=== PATIENT | female | born 1945 | race Caucasian/White ===

== ENCOUNTER → 2020-03-05 10:11 | Outpatient (BNVA) | payer MEDICARE, OTHER, SELFPAY | PROVIDERS: PCP Internal Medicine; Visit Provider Internal Medicine | DX: J98.01 Acute bronchospasm (principal); K21.9 Gastro-esophageal reflux disease without esophagitis; Z79.899 Other long term (current) drug therapy | CPT/HCPCS: 99213 ==

== ENCOUNTER → 2020-04-09 15:08 | Outpatient (BNVA) | payer MEDICARE, OTHER, SELFPAY | PROVIDERS: PCP Internal Medicine; Visit Provider Internal Medicine | DX: J98.01 Acute bronchospasm (principal); J30.9 Allergic rhinitis, unspecified | CPT/HCPCS: 99212 ==

== ENCOUNTER → 2020-05-14 10:51 | Outpatient (BNVA) | payer MEDICARE, OTHER, SELFPAY | PROVIDERS: PCP Internal Medicine; Visit Provider Internal Medicine | DX: J30.9 Allergic rhinitis, unspecified (principal); J98.01 Acute bronchospasm | CPT/HCPCS: 99212 ==

== ENCOUNTER 2020-06-11 11:31 | Outpatient (REF) | payer MEDICARE, OTHER, SELFPAY ==
[2020-06-11 14:27] LABS: MANUAL DIFF FLAG NO
[2020-06-11 14:33] LABS: Basophils Percent Auto 0.5 % (0-2); Eosinophils Absolute Auto 0.1 X10*3/uL (0.0-0.4); Eosinophils Percent Auto 1.3 % (0-4); Hematocrit 36.3 % (37-47); Hemoglobin 12.4 g/dl (12.0-16.0); Imm Gran Abs Auto 0.02 X10*3/uL (0.00-0.03); Imm Gran Pct Auto 0.3 % (0.0-0.4); Lymphocytes Absolute Auto 3.1 X10*3/uL (1.2-4.9); Lymphocytes Percent Auto 49.9 % (20-40); Mean Corpuscular HGB Conc 34.2 g/dl (31.0-35.0); Mean Corpuscular Hemoglobin 27.6 pg (27.0-33.0); Mean Corpuscular Volume 80.7 fL (80-98); Mean Platelet Volume 11.1 fL (9.4-12.3); Monocytes Absolute Auto 0.5 X10*3/uL (0.1-1.2); Monocytes Percent Auto 8.1 % (2-11); Neutrophils Absolute Auto 2.5 X10*3/uL (2.0-8.3); Neutrophils Percent Auto 39.9 % (45-73); Platelet Count 268 X10*3/uL (160-400); Red Cell Distribution Width 14.6 % (11.0-16.0); White Blood Count 6.2 X10*3/uL (4.8-10.8)
[2020-06-11 14:44] LABS: Alanine Aminotransferase 37 U/L (0-31); Albumin Level 4.1 g/dL (3.5-5.0); Alkaline Phosphatase 87 U/L (39-117); Anion Gap 16 (12-20); Aspartate Amino Transferase 27 U/L (5-31); Bilirubin Total 0.6 mg/dL (0.0-1.0); Blood Urea Nitrogen 18 mg/dL (9-16); Calcium 9.3 mg/dL (8.4-10.2); Carbon Dioxide 23 mmol/L (22-29); Chloride 105 mmol/L (96-108); Estimated Glomerular Filt Rate > 60; Glucose Random 140 mg/dL (60-115); Sodium 140 mmol/L (135-145); Total Protein 7.3 g/dL (6.5-8.0)
[2020-06-11 14:57] LABS: Creatinine Urine 61.53 mg/dL; Microalbumin Urine < 5.0 mg/L
[2020-06-11 15:16] LABS: Estimated Average Glucose 140 mg/dL; Hemoglobin A1c % 6.5 %
== END 2020-06-11 11:32 | disposition home or self-care (01) ==
LOC: HO.10HDL 11:31
PROVIDERS: Visit Provider Internal Medicine
DX: R73.03 Prediabetes (principal); I10 Essential (primary) hypertension; J45.909 Unspecified asthma, uncomplicated
CPT/HCPCS: 36415; 80053; 82043; 83036; 85025

== ENCOUNTER 2020-07-13 10:10 | Outpatient (REF) | payer MEDICARE, OTHER, SELFPAY ==
--- NOTE | ~2020-07-13 | XR_ITS ---
EXAMINATION: XR CHEST CLINICAL INFORMATION: Acute bronchospasm. COMPARISON: None TECHNIQUE: Chest 08/28/2019 FINDINGS: The lungs are well-expanded and clear of acute process. The heart size and pulmonary vascularity is normal. There is moderate spondylosis dorsal spine. No lytic process seen. XR/XR chest 2V IMPRESSION: Unremarkable chest exam.
== END 2020-07-13 10:11 | disposition home or self-care (01) ==
LOC: HO.XRAY 10:10
PROVIDERS: PCP Internal Medicine; Visit Provider Internal Medicine
DX: J98.01 Acute bronchospasm (principal)
CPT/HCPCS: 71046; 99212

== ENCOUNTER 2020-07-22 11:23 | Outpatient (REF) | payer MEDICARE, OTHER, SELFPAY ==
[2020-07-22 13:57] LABS: MANUAL DIFF FLAG NO
[2020-07-22 14:15] LABS: Basophils Percent Auto 0.6 % (0-2); Eosinophils Absolute Auto 0.1 X10*3/uL (0.0-0.4); Eosinophils Percent Auto 1.5 % (0-4); Hematocrit 35.8 % (37-47); Hemoglobin 12.5 g/dl (12.0-16.0); Imm Gran Abs Auto 0.01 X10*3/uL (0.00-0.03); Imm Gran Pct Auto 0.1 % (0.0-0.4); Lymphocytes Absolute Auto 3.8 X10*3/uL (1.2-4.9); Lymphocytes Percent Auto 56.1 % (20-40); Mean Corpuscular HGB Conc 34.9 g/dl (31.0-35.0); Mean Corpuscular Hemoglobin 27.8 pg (27.0-33.0); Mean Corpuscular Volume 79.6 fL (80-98); Monocytes Absolute Auto 0.5 X10*3/uL (0.1-1.2); Monocytes Percent Auto 7.3 % (2-11); Neutrophils Absolute Auto 2.3 X10*3/uL (2.0-8.3); Neutrophils Percent Auto 34.4 % (45-73); Platelet Count 281 X10*3/uL (160-400); Red Cell Distribution Width 14.6 % (11.0-16.0); White Blood Count 6.7 X10*3/uL (4.8-10.8)
[2020-07-22 14:34] LABS: Alanine Aminotransferase 38 U/L (0-31); Alkaline Phosphatase 80 U/L (39-117); Anion Gap 12 (12-20); Aspartate Amino Transferase 30 U/L (5-31); Bilirubin Total 0.5 mg/dL (0.0-1.0); Blood Urea Nitrogen 18 mg/dL (9-16); Calcium 9.1 mg/dL (8.4-10.2); Carbon Dioxide 25 mmol/L (22-29); Chloride 104 mmol/L (96-108); Estimated Glomerular Filt Rate > 60; Glucose Fasting 131 mg/dL (60-99); Potassium 4.2 mmol/L (3.3-5.1); Sodium 137 mmol/L (135-145); Total Protein 7.2 g/dL (6.5-8.0)
== END 2020-07-22 11:24 | disposition home or self-care (01) ==
LOC: HO.10HDL 11:23
PROVIDERS: Visit Provider Internal Medicine Medical Oncology
DX: D72.820 Lymphocytosis (symptomatic) (principal); E11.69 Type 2 diabetes mellitus with other specified complication; E78.5 Hyperlipidemia, unspecified
CPT/HCPCS: 36415; 80053; 85025

== ENCOUNTER → 2020-08-10 10:07 | Outpatient (BNVA) | payer MEDICARE, OTHER, SELFPAY | PROVIDERS: PCP Internal Medicine; Visit Provider Internal Medicine | DX: J98.01 Acute bronchospasm (principal); J30.9 Allergic rhinitis, unspecified; Z79.51 Long term (current) use of inhaled steroids; Z87.891 Personal history of nicotine dependence | CPT/HCPCS: 99212 ==

== ENCOUNTER 2020-08-13 11:14 | Outpatient (REF) | payer MEDICARE, OTHER, SELFPAY ==
[2020-08-13 13:56] LABS: MANUAL DIFF FLAG NO
[2020-08-13 14:03] LABS: Basophils Percent Auto 0.4 % (0-2); Eosinophils Percent Auto 0.5 % (0-4); Hematocrit 38.5 % (37-47); Hemoglobin 13.4 g/dl (12.0-16.0); Imm Gran Abs Auto 0.03 X10*3/uL (0.00-0.03); Imm Gran Pct Auto 0.4 % (0.0-0.4); Lymphocytes Absolute Auto 2.6 X10*3/uL (1.2-4.9); Lymphocytes Percent Auto 34.9 % (20-40); Mean Corpuscular HGB Conc 34.8 g/dl (31.0-35.0); Mean Corpuscular Hemoglobin 27.5 pg (27.0-33.0); Mean Corpuscular Volume 79.1 fL (80-98); Mean Platelet Volume 11.2 fL (9.4-12.3); Monocytes Absolute Auto 0.3 X10*3/uL (0.1-1.2); Monocytes Percent Auto 3.8 % (2-11); Neutrophils Absolute Auto 4.5 X10*3/uL (2.0-8.3); Platelet Count 276 X10*3/uL (160-400); Red Blood Count 4.87 X10*6/uL (4.20-5.50); Red Cell Distribution Width 14.5 % (11.0-16.0); White Blood Count 7.6 X10*3/uL (4.8-10.8)
[2020-08-13 14:07] LABS: Estimated Average Glucose 146 mg/dL; Hemoglobin A1c % 6.7 %
[2020-08-13 14:23] LABS: Anion Gap 15 (12-20); Blood Urea Nitrogen 16 mg/dL (9-16); Calcium 9.6 mg/dL (8.4-10.2); Carbon Dioxide 24 mmol/L (22-29); Chloride 102 mmol/L (96-108); Estimated Glomerular Filt Rate > 60; Glucose Random 192 mg/dL (60-115); Potassium 4.1 mmol/L (3.3-5.1); Sodium 137 mmol/L (135-145)
== END 2020-08-13 11:15 | disposition home or self-care (01) ==
LOC: HO.10HDL 11:14
PROVIDERS: Visit Provider Internal Medicine
DX: E11.9 Type 2 diabetes mellitus without complications (principal); I10 Essential (primary) hypertension; R42 Dizziness and giddiness
CPT/HCPCS: 36415; 80048; 82550; 83036; 85025; 86140

== ENCOUNTER 2020-11-04 12:54 | Outpatient (REF) | payer MEDICARE, OTHER, SELFPAY ==
[2020-11-04 14:26] LABS: Influenza A PCR NEGATIVE (Negative); Influenza B PCR NEGATIVE (Negative); Resp Syncy Virus RNA Qual PCR NEGATIVE (Negative); SARS COV2 PCR INHOUSE NEGATIVE (Negative)
== END 2020-11-04 12:55 | disposition home or self-care (01) ==
LOC: HO.10HDLNP 12:54
PROVIDERS: Visit Provider Internal Medicine
DX: Z20.822 Contact with and (suspected) exposure to COVID-19 (principal)
CPT/HCPCS: 0241U

== ENCOUNTER 2020-11-27 11:57 | Outpatient (REF) | payer MEDICARE, OTHER, SELFPAY ==
--- NOTE | ~2020-11-27 | MM_ITS ---
EXAMINATION: MM SCREENING DIGITAL BREAST TOMOSYNTHESIS, BILATERAL CLINICAL INFORMATION: Screening. Asymptomatic. The lifetime risk of breast cancer based on the Tyrer-Cuzick Model is 2.4%. COMPARISON: Mammography: December 21, 2018 and studies dating back to June 13, 2014 TECHNIQUE: Digital breast tomosynthesis is performed in both the craniocaudal and mediolateral oblique views along with computer-aided detection (CAD). Synthesized 2D images are generated from the tomosynthesis. FINDINGS: There are scattered areas of fibroglandular density (ACR BI-RADS breast composition Category b). There are no significant masses, abnormal calcifications, or other abnormalities. MM/MM tomosynthesis screening BI IMPRESSION: There are no significant changes from prior study. ASSESSMENT: BI-RADS 1: Negative RECOMMENDATION: Routine annual mammography screening. This patient's information was entered into a reminder system with a target due date for their next mammogram.
== END 2020-11-27 11:58 | disposition home or self-care (01) ==
LOC: HO.MAMMO 11:57
PROVIDERS: PCP Internal Medicine; Visit Provider Internal Medicine
DX: Z12.31 Encounter for screening mammogram for malignant neoplasm of breast (principal)
CPT/HCPCS: 77063; 77067

== ENCOUNTER 2020-12-01 10:07 | Outpatient (REF) | payer MEDICARE, OTHER, SELFPAY ==
--- NOTE | ~2020-12-01 | XR_ITS ---
EXAMINATION: XR CHEST CLINICAL INFORMATION: Allergic rhinitis COMPARISON: 07/13/2020 TECHNIQUE: 2 views of the chest were obtained. FINDINGS: Lungs are clear. No focal consolidation or mass. Normal pulmonary vascularity. No pleural effusion or pneumothorax. Normal heart size. S-shaped thoracolumbar scoliosis. Right upper quadrant cholecystectomy clips. XR/XR chest 2V IMPRESSION: No acute pulmonary disease.
--- NOTE | ~2020-12-01 | XR_ITS ---
EXAMINATION: XR SINUSES CLINICAL INFORMATION: Allergic rhinitis COMPARISON: None TECHNIQUE: 3 views of the sinuses were obtained. FINDINGS: Paranasal sinuses appear clear without air-fluid levels. No fractures are identified. No radiodense foreign bodies. XR/XR sinus <3V IMPRESSION: No abnormal sinus opacification to suggest acute sinusitis.
== END 2020-12-01 10:08 | disposition home or self-care (01) ==
LOC: HO.XRAY 10:07
PROVIDERS: PCP Internal Medicine; Visit Provider Internal Medicine
DX: J30.9 Allergic rhinitis, unspecified (principal); J98.01 Acute bronchospasm
CPT/HCPCS: 70210; 71046; 99212

== ENCOUNTER 2021-01-01 13:26 | Outpatient (REF) | payer MEDICARE, OTHER, SELFPAY ==
[2021-01-01 14:15] LABS: Influenza A PCR NEGATIVE (Negative); Influenza B PCR NEGATIVE (Negative); Resp Syncy Virus RNA Qual PCR NEGATIVE (Negative); SARS COV2 PCR INHOUSE NEGATIVE (Negative)
== END 2021-01-01 13:27 | disposition home or self-care (01) ==
LOC: HO.LNP 13:26
PROVIDERS: Visit Provider Internal Medicine
DX: Z20.822 Contact with and (suspected) exposure to COVID-19 (principal)
CPT/HCPCS: 0241U

== ENCOUNTER 2021-01-22 10:39 | Outpatient (REF) | payer MEDICARE, OTHER, SELFPAY ==
[2021-01-22 12:03] LABS: MANUAL DIFF FLAG NO
[2021-01-22 12:14] LABS: Basophils Percent Auto 0.7 % (0-2); Eosinophils Absolute Auto 0.1 X10*3/uL (0.0-0.4); Eosinophils Percent Auto 1.7 % (0-4); Hematocrit 35.2 % (37-47); Hemoglobin 12.5 g/dl (12.0-16.0); Imm Gran Abs Auto 0.01 X10*3/uL (0.00-0.03); Imm Gran Pct Auto 0.2 % (0.0-0.4); Lymphocytes Percent Auto 50.8 % (20-40); Mean Corpuscular HGB Conc 35.5 g/dl (31.0-35.0); Mean Corpuscular Hemoglobin 28.3 pg (27.0-33.0); Mean Corpuscular Volume 79.8 fL (80-98); Mean Platelet Volume 11.1 fL (9.4-12.3); Monocytes Absolute Auto 0.4 X10*3/uL (0.1-1.2); Monocytes Percent Auto 7.3 % (2-11); Neutrophils Absolute Auto 2.3 X10*3/uL (2.0-8.3); Neutrophils Percent Auto 39.3 % (45-73); Platelet Count 258 X10*3/uL (160-400); Red Blood Count 4.41 X10*6/uL (4.20-5.50); Red Cell Distribution Width 14.6 % (11.0-16.0); White Blood Count 5.9 X10*3/uL (4.8-10.8)
[2021-01-22 12:17] LABS: Estimated Average Glucose 134 mg/dL; Hemoglobin A1C 151.3779 umol/L; Hemoglobin A1c % 6.3 %
[2021-01-22 12:39] LABS: Alanine Aminotransferase 31 U/L (0-31); Albumin Level 4.1 g/dL (3.5-5.0); Alkaline Phosphatase 78 U/L (39-117); Anion Gap 12 (12-20); Aspartate Amino Transferase 23 U/L (5-31); Bilirubin Total 0.3 mg/dL (0.0-1.0); Blood Urea Nitrogen 15 mg/dL (9-16); Calcium 9.4 mg/dL (8.4-10.2); Carbon Dioxide 24 mmol/L (22-29); Chloride 107 mmol/L (96-108); Cholesterol 178 mg/dL; Estimated Glomerular Filt Rate > 60; Glucose Fasting 136 mg/dL (60-99); HDL Cholesterol 52 mg/dL; LDL Cholesterol Calculated 74 mg/dl; Potassium 4.2 mmol/L (3.3-5.1); Sodium 139 mmol/L (135-145); Total Protein 7.2 g/dL (6.5-8.0); Triglycerides 264 mg/dL
[2021-01-22 14:34] LABS: Creatinine Urine 80.09 mg/dL; Microalbum/Creatinine Ratio Ur 6.2 ug/mg cr
== END 2021-01-22 10:40 | disposition home or self-care (01) ==
LOC: HO.LAB 10:39
PROVIDERS: Absent Provider Internal Medicine; PCP Internal Medicine; Visit Provider Internal Medicine Medical Oncology
DX: D72.820 Lymphocytosis (symptomatic) (principal); E11.9 Type 2 diabetes mellitus without complications; I10 Essential (primary) hypertension; J45.909 Unspecified asthma, uncomplicated; E78.00 Pure hypercholesterolemia, unspecified
CPT/HCPCS: 36415; 80053; 80061; 82043; 83036; 85025

== ENCOUNTER → 2021-02-10 09:28 | Outpatient (BNVA) | payer MEDICARE, OTHER, SELFPAY | PROVIDERS: PCP Internal Medicine; Visit Provider Internal Medicine | DX: J98.01 Acute bronchospasm (principal); J30.9 Allergic rhinitis, unspecified | CPT/HCPCS: 99212 ==

== ENCOUNTER → 2021-05-10 09:47 | Outpatient (BNVA) | payer MEDICARE, OTHER, SELFPAY | PROVIDERS: PCP Internal Medicine; Visit Provider Internal Medicine | DX: R05.3 Chronic cough (principal); J30.9 Allergic rhinitis, unspecified | CPT/HCPCS: 99212 ==

== ENCOUNTER 2021-05-19 11:00 | Outpatient (RCR) | payer OTHER, MEDICARE, SELFPAY | END 2021-06-10 13:31 | disposition home or self-care (01) | LOC: HO.PTCHIC 11:00 | PROVIDERS: PCP Internal Medicine; Visit Provider Internal Medicine | DX: M54.50 Low back pain, unspecified (principal); M54.2 Cervicalgia | CPT/HCPCS: 97014; 97110; 97140; 97162 ==

== ENCOUNTER 2021-05-24 12:01 | Outpatient (REF) | payer MEDICARE, OTHER, SELFPAY ==
--- NOTE | ~2021-05-24 | XR_ITS ---
EXAMINATION: XR NASAL BONES CLINICAL INFORMATION: Status post fall with nasal swelling. COMPARISON: 12/01/2020 and 11/12/2018 TECHNIQUE: 3 views of the nasal bones were obtained. XR/XR nasal bones min 3V FINDINGS/IMPRESSION: Minimally angulated nasal bone fracture. Slight leftward deviation of the osseous nasal septum is stable and bony orbits intact. Paranasal sinuses are clear.
== END 2021-05-24 12:02 | disposition home or self-care (01) ==
LOC: HO.XRAY 12:01
PROVIDERS: PCP Internal Medicine; Visit Provider Internal Medicine
DX: R22.9 Localized swelling, mass and lump, unspecified (principal); Z91.81 History of falling
CPT/HCPCS: 70160

== ENCOUNTER 2021-07-29 07:59 | Outpatient (REF) | payer MEDICARE, OTHER, SELFPAY ==
[2021-07-29 11:24] LABS: MANUAL DIFF FLAG NO
[2021-07-29 11:30] LABS: Basophils Percent Auto 0.7 % (0-2); Eosinophils Absolute Auto 0.1 X10*3/uL (0.0-0.4); Eosinophils Percent Auto 1.7 % (0-4); Hematocrit 35.8 % (37.0-47.0); Hemoglobin 12.3 g/dl (12.0-16.0); Imm Gran Abs Auto 0.01 X10*3/uL (0.00-0.03); Imm Gran Pct Auto 0.2 % (0.0-0.4); Lymphocytes Absolute Auto 3.2 X10*3/uL (1.2-4.9); Lymphocytes Percent Auto 59.1 % (20-40); Mean Corpuscular HGB Conc 34.4 g/dl (31.0-35.0); Mean Corpuscular Hemoglobin 27.3 pg (27.0-33.0); Mean Corpuscular Volume 79.6 fL (80.0-98.0); Monocytes Absolute Auto 0.4 X10*3/uL (0.1-1.2); Neutrophils Absolute Auto 1.7 x10*3/uL (2.0-8.3); Neutrophils Percent Auto 31.3 % (45-73); Platelet Count 255 X10*3/uL (160-400); Red Cell Distribution Width 14.9 % (11.0-16.0); White Blood Count 5.4 X10*3/uL (4.8-10.8)
[2021-07-29 11:49] LABS: Alanine Aminotransferase 24 U/L (0-31); Albumin Level 3.9 g/dL (3.5-5.0); Alkaline Phosphatase 86 U/L (39-117); Anion Gap 12 (12-20); Aspartate Amino Transferase 21 U/L (5-31); Bilirubin Total 0.5 mg/dL (0.0-1.0); Blood Urea Nitrogen 16 mg/dL (9-16); Calcium 9.1 mg/dL (8.4-10.2); Carbon Dioxide 27 mmol/L (22-29); Chloride 104 mmol/L (96-108); Estimated Glomerular Filt Rate > 60; Glucose Random 141 mg/dL (60-115); Potassium 4.1 mmol/L (3.3-5.1); Sodium 139 mmol/L (135-145)
[2021-07-29 12:01] LABS: Estimated Average Glucose 151 mg/dL; Hemoglobin A1c % 6.9 %
[2021-07-29 12:10] LABS: Erythrocyte Sedimentation Rate 25 MM/HR (0-20)
== END 2021-07-29 08:00 | disposition home or self-care (01) ==
LOC: HO.HMGCLDS 07:59
PROVIDERS: Absent Provider Internal Medicine Medical Oncology; PCP Internal Medicine; Referring Provider Internal Medicine; Visit Provider Internal Medicine
DX: E11.9 Type 2 diabetes mellitus without complications (principal); I10 Essential (primary) hypertension; J45.909 Unspecified asthma, uncomplicated
CPT/HCPCS: 36415; 80053; 83036; 85025; 85652

== ENCOUNTER 2021-08-08 14:02 | Emergency (ER) | payer MEDICARE, OTHER, SELFPAY ==
--- NOTE | ~2021-08-08 | CT_ITS ---
EXAMINATION: CT HEAD WITHOUT CONTRAST CT CERVICAL SPINE WITHOUT CONTRAST CLINICAL INFORMATION: Fall, hit head. COMPARISON: CT scan of the head 01/07/2017. TECHNIQUE: Multidetector CT imaging of the head and cervical spine was performed without the use of intravenous contrast. Coronal and sagittal reformatted images were generated at the technologist workstation. This CT examination was performed using dose optimization techniques as appropriate, variously including the following: *Automated exposure control *Adjustment of mA and/or kV according to patient size (this includes techniques or standardized protocols for targeted exams where dose is matched to indication/reason for exam; i.e. extremities or head) *Use of iterative reconstruction technique DLP: 1065 mGy-cm. FINDINGS: CT head: There is no evidence of acute intracranial hemorrhage or territorial infarction. No abnormal mass-effect or midline shift is seen. [place] to white matter differentiation is well preserved. No extra-axial fluid collections are identified. There is commensurate prominence of the ventricles and sulci consistent with diffuse volume loss. There are areas of low-attenuation in the periventricular and subcortical white matter, consistent with chronic microvascular ischemic changes. 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 There are atheromatous calcifications of the intradural vertebral arteries bilaterally. There are no acute osseous findings. There is hyperostosis frontalis interna. There are no large scalp contusions or hematomas. The mastoid air cells and the visualized paranasal sinuses are well-aerated. The nasal septum has a sigmoid configuration; anteriorly, it extends toward the right, and more posteriorly it extends toward the left with a prominent left-sided bony nasal septal spur. There is thin bone over the carotid canals typically on the right. There are abel palatini. CT cervical spine: There are mild retrolistheses of C4 on C5 and C5 on C6. There is narrowing of intervertebral disc height at these levels, and there is also narrowing at this C6-C7. No fractures are demonstrated. The lateral masses of C1 and C2 are normally aligned and the dens appears intact. There are degenerative changes of the bilateral atlantoaxial joints. The atlantooccipital joints appear intact. Vertebral body heights appear normal. There is multilevel facet arthropathy. There are atheromatous calcifications of the great vessels of the neck and at the carotid bifurcations. The imaged lung apices are clear. CT/CT cervical spine wo con IMPRESSION: CT head: 1. There are no acute bleeds or territorial infarcts. No masses are demonstrated. 2. There are chronic microvascular ischemic changes and there is diffuse volume loss. 3. There are no acute osseous or soft tissue abnormalities. CT cervical spine: 1. There are no acute fractures or subluxations. 2. There is multilevel spondylosis and facet arthropathy. 3. There are no acute soft tissue abnormalities.
[2021-08-08 14:16] VITALS: BP 205/91; PULSE 104; RESP 16; TEMP 36.7; O2SAT 98; BMI 28.5
--- NOTE | 2021-08-08 14:57 | ED.HEATRA ---
HPI - Head Injury General Chief complaint: Head Injury Stated complaint: HIT IN HEAD Time Seen by Provider: 08/08/21 14:34 Source: patient Mode of arrival: ambulatory Limitations: no limitations History of Present Illness HPI Narrative: 76-year-old female here with reports of head injury 2 days ago. Patient tells me that she fell forward hitting her head on the refrigerator at her house. There was no loss of consciousness. She reports a headache since then. No neck pain, vision changes, vomiting, dizziness. Patient is not on any anticoagulation. She was seen at urgent care and referred into the emergency department for the CT scan. Related Data Home Medications Medication Instructions Recorded Confirmed blood sugar diagnostic #10 ea 02/29/20 04/09/20 carvedilol 6.25 mg tablet 6.25 mg PO BID 02/29/20 04/09/20 hydralazine 25 mg tablet 25 mg PO BID 02/29/20 04/09/20 pravastatin 80 mg tablet 80 mg PO DAILY 02/29/20 04/09/20 omeprazole 20 mg capsule,delayed 20 mg PO DAILY cap 07/13/20 release aspirin 81 mg tablet,delayed 81 mg PO DAILY 12/01/20 release multivitamin (Daily Multi-Vitamin) 1 tab PO DAILY 12/01/20 lorazepam 1 mg tablet 0.5 mg PO BID PRN tab 02/10/21 azelastine 137 mcg (0.1 %) nasal INTRANASAL 05/10/21 spray aerosol blood-glucose meter (FreeStyle #1 ea 05/10/21 [place] Lite) dextromethorphan polistirex 30 10 ml PO Q12H 05/10/21 mg/5 mL oral susp ext.release 12hr (Delsym 12 hour) lancets 28 gauge (FreeStyle #100 ea 05/10/21 Lancets) Previous Rx's Medication Instructions Recorded albuterol sulfate 90 mcg/actuation 2 puff INHALATION Q4-6H PRN #18 g 02/10/21 aerosol inhaler dextromethorphan HBr 15 mg tablet 15 mg PO Q8H PRN 30 Days #60 tab 05/10/21 (Delsym Cough) Allergies Allergy/AdvReac Type Severity Reaction Status Date / Time niacin [Niacin] Allergy Mild RASH Verified 08/08/21 14:22 lactose [Lactose] AdvReac Mild DIARRHEA Verified 08/08/21 14:22 atorvastatin [Lipitor] AdvReac Unknown Unknown Verified 08/08/21 14:22 celecoxib [Celebrex] AdvReac Unknown Unknown Verified 08/08/21 14:22 simvastatin AdvReac Unknown Unknown Verified 08/08/21 14:22 Review of Systems Review of Systems: Yes all other systems are reviewed and are negative Constitutional: Constitutional: Reports no additional constitutional complaints, Denies body ache(s), Denies chills, Denies fever(s), Reports headache(s) and Denies weakness Eyes: Eyes: Reports no additional eye complaints and Denies change in vision ENT: Reports system reviewed and no additional complaints, except as documented, Denies dizziness, Reports headache(s), Denies nasal congestion, Denies nasal discharge and Denies neck pain Cardiovascular: Cardiovascular: Reports no additional cardiovascular complaints, Denies chest pain, Denies leg edema and Denies dyspnea Respiratory: Respiratory: Reports no additional respiratory complaints, Denies cough and Denies dyspnea Gastrointestinal: Gastrointestinal: Reports no additional gastrointestinal complaints, Denies abdominal pain, Denies diarrhea, Denies nausea and Denies vomiting Genitourinary: Genitourinary: Reports no additional female genitourinary complaints and Denies urinary incontinence Musculoskeletal: Musculoskeletal: Reports no additional musculoskeletal complaints, Denies back pain, Denies arthralgias, Denies joint swelling, Denies neck pain, Denies numbness and Denies tingling Integumentary/Breasts: Skin/Breast: Reports system reviewed and no additional complaints, except as docu and Denies rash Neurologic: Reports system reviewed and no additional complaints, except as documented, Denies Abnormal speech present, Denies dizziness, Reports headache(s), Denies numbness, Denies tingling and Denies weakness [facility] Past Medical History Attestation statement: The following information was validated with the patient. Source: old records reviewed and nursing notes reviewed Medical History Allergic rhinitis Chronic cough Cough due to bronchospasm Cough due to bronchospasm Fibromyalgia High cholesterol HTN (hypertension) IBS (irritable bowel syndrome) Family History Family History Father No problems noted. Mother Diabetic coma Sister No problems noted. Social History Social History Patient Tobacco Use Status: Former Tobacco user Advance Directives: No Advance Directives Information Provided: No Physical Exam Vital Signs: Vital Signs: Last Vital Signs Temp 98.7 F 08/08/21 16:33 Pulse 81 08/08/21 16:33 Resp 18 08/08/21 16:33 BP 157/84 H 08/08/21 16:33 Pulse Ox 96 08/08/21 16:33 BMI result Body Mass Index 28.5 Const: General: cooperative, healthy appearing, comfortable and no acute distress Orientation/consciousness: patient oriented x3 Limitations: no limitations HENMT: Head: Yes normal to inspection, No Valdovinos's sign and No raccoon eyes Ears: hearing grossly normal bilaterally and TM's normal bilaterally General nose exam: Normal external nose present Face and sinus: Yes normal facial exam Mouth: Normal oral and palatal mucosa present Throat: Yes posterior oropharynx normal Eyes: General: appearance normal, both eyes and all related structures Pupils: Equal, round and reactive pupils present Neck: Other: No midline tenderness, step-offs deformities Neck: Yes normal visual inspection, Yes full ROM, Yes no lymphadenopathy and Yes no meningeal signs Chest: Chest palpation & inspection: normal inspection of the chest Resp: Effort & Inspection: normal respiratory effort Auscultation: clear to auscultation bilaterally Cardio: Rate: regular rate Rhythm: regular rhythm Peripheral pulses: Peripheral pulses 2+ throughout GI: Inspection: Yes normal to inspection Palpation (GI): Soft to palpation and nontender Auscultation: normal bowel sounds Back/Spine/Pelvis: Thoracic/Lumbar Spine: thoracic and lumbar spine normal to inspection Skin: General skin exam: no rashes or lesions noted Neuro: General: patient oriented x3, moves all extremities, no meningeal signs, no focal motor deficits and normal sensation to monofilament Cranial nerves: Yes CN's II-XII intact bilaterally, Yes Equal, round and reactive pupils present, Yes Bilaterally intact EOM present, Yes Nystagmus not present, Yes Normal facial strength present and Yes Midline tongue present Cognition (Neuro): normal cognition Speech: No Abnormal speech present Gait exam (Neuro): Normal gait present Motor exam (neuro): 5/5 motor strength present throughout Sensory Exam: Normal double simultaneous stimulation for sensation Coordination: [id number] test normal, [id number] test normal and tandem gait normal Extrem: General: Yes normal to inspection Course Course Course Narrative: 76-year-old female here with a headache after a head strike 2 days ago. No anticoagulation use. Normal neuro exam. Patient is hypertensive but tells me that whenever she is visiting the doctor or at a hospital setting her blood pressure runs. She did take her blood pressure medications this morning. Will check CT head and neck due to age and monitor blood pressure 1645-CT head and neck and negative. Blood pressure improved without intervention. Plan for discharge home. Reviewed worrisome signs and symptoms of when to return to the emergency department. Comfortable discharge home. MDM - Head Injury Medical Records Attestation: I reviewed the patient's medical records. Lab Data Attestation: I reviewed the patient's lab results. Imaging Data Ct head/cervical spine: Attestation: I personally reviewed and interpreted this imaging study as follows: Radiologist's impression: IMPRESSION: CT head: 1. There are no acute bleeds or territorial infarcts. No masses are demonstrated. 2. There are chronic microvascular ischemic changes and there is diffuse volume loss. 3. There are no acute osseous or soft tissue abnormalities. ? CT cervical spine: 1. There are no acute fractures or subluxations. 2. There is multilevel spondylosis and facet arthropathy. 3. There are no acute soft tissue abnormalities. Discharge Plan Discharge Clinical Impression: Closed head injury Patient Disposition: Home, Self-Care Instructions: Head Injury (ED) Additional Instructions: CT scan of the head and neck are normal Take Tylenol for pain as needed Follow-up with your primary care doctor in 7 days for re-evaluation Blood pressure was mildly elevated. Please also follow-up for repeat blood pressure outpatient Prescriptions: No Action (DME) FreeStyle Lite Strips Strip See Rx Instructions ea Not Applicable DAILY Qty: 10 0RF Rx Instructions: As directed pravastatin 80 mg tablet 80 mg PO DAILY 0RF hydralazine 25 mg tablet 25 mg PO BID 0RF carvedilol 6.25 mg tablet 6.25 mg PO BID 0RF omeprazole 20 mg capsule,delayed release(DR/EC) 20 mg PO DAILY 0RF albuterol sulfate 90 mcg/actuation HFA aerosol inhaler 2 puff inhalation Q4-6H PRN (Reason: for wheezing) Qty: 18 3RF lorazepam 1 mg tablet 0.5 mg PO BID PRN0RF aspirin 81 mg tablet,delayed release (DR/EC) 81 mg PO DAILY 0RF multivitamin [Daily Multi-Vitamin] Tablet 1 tab PO DAILY 0RF azelastine 137 mcg (0.1 %) aerosol,spray intranasal 0RF (DME) lancets [FreeStyle Lancets] 28 gauge misc See Rx Instructions ea topical BID Qty: 100 0RF Rx Instructions: As directed (DME) blood-glucose meter [FreeStyle [place] Lite] Kit See Rx Instructions ea Not Applicable BID Qty: 1 0RF Rx Instructions: As directed dextromethorphan polistirex [Delsym 12 hour] 30 mg/5 mL suspension,extended rel 12 hr 10 ml PO Q12H 0RF Delsym Cough 15 mg tablet 15 mg PO Q8H PRN (Reason: cough) 30 Days Qty: 60 5RF Referrals: Dannie Huang MD [Primary Care Provider] - 1 week Interventions: ED Discharge Assessment Last Done: 08/08/21 16:59 Discharge Date/Time: 08/08/21 17:02
[2021-08-08 16:33] VITALS: BP 157/84; PULSE 81; RESP 18; TEMP 37.1; O2SAT 96
== END 2021-08-08 17:02 | disposition home or self-care (01) ==
PROVIDERS: Emergency Provider Emergency Medicine; PCP Internal Medicine
DX: S00.91XA Abrasion of unspecified part of head, initial encounter (principal); G44.309 Post-traumatic headache, unspecified, not intractable; M54.2 Cervicalgia; W01.0XXA Fall on same level from slipping, tripping and stumbling without subsequent striking against object, initial encounter; Y93.9 Activity, unspecified; Y92.9 Unspecified place or not applicable; Y99.9 Unspecified external cause status
CPT/HCPCS: 70450; 72125; 99283

== ENCOUNTER 2021-11-09 09:46 | Outpatient (REF) | payer MEDICARE, OTHER, SELFPAY ==
[2021-11-09 11:45] LABS: Estimated Average Glucose 143 mg/dL; Hemoglobin A1c % 6.6 %
[2021-11-09 12:16] LABS: Anion Gap 12 (12-20); Blood Urea Nitrogen 17 mg/dL (9-16); Calcium 9.1 mg/dL (8.4-10.2); Carbon Dioxide 24 mmol/L (22-29); Chloride 107 mmol/L (96-108); Estimated Glomerular Filt Rate > 60; Glucose Random 128 mg/dL (60-115); Potassium 4.1 mmol/L (3.3-5.1); Sodium 139 mmol/L (135-145)
== END 2021-11-09 09:47 | disposition home or self-care (01) ==
LOC: HO.LAB 09:46
PROVIDERS: PCP Internal Medicine; Visit Provider Internal Medicine
DX: E11.9 Type 2 diabetes mellitus without complications (principal); J45.909 Unspecified asthma, uncomplicated; I10 Essential (primary) hypertension
CPT/HCPCS: 36415; 80048; 83036

== ENCOUNTER → 2021-11-11 09:43 | Outpatient (BNVA) | payer MEDICARE, OTHER, SELFPAY | PROVIDERS: PCP Internal Medicine; Visit Provider Internal Medicine | DX: J30.9 Allergic rhinitis, unspecified (principal); R05.3 Chronic cough; J98.01 Acute bronchospasm | CPT/HCPCS: 99212 ==

== ENCOUNTER 2021-12-21 09:24 | Outpatient (REF) | payer MEDICARE, OTHER, SELFPAY ==
--- NOTE | ~2021-12-21 | MM_ITS ---
EXAMINATION: MM SCREENING DIGITAL BREAST TOMOSYNTHESIS, BILATERAL CLINICAL INFORMATION: Screening. Asymptomatic. The lifetime risk of breast cancer based on the Tyrer-Cuzick Model is 2.1%. COMPARISON: Mammography: November 27, 2020 and studies dating back to February 10, 2012 TECHNIQUE: Digital breast tomosynthesis is performed in both the craniocaudal and mediolateral oblique views along with computer-aided detection (CAD). Synthesized 2D images are generated from the tomosynthesis. FINDINGS: There are scattered areas of fibroglandular density (ACR BI-RADS breast composition Category b). There are no significant masses, abnormal calcifications, or other abnormalities. MM/MM tomosynthesis screening BI IMPRESSION: There are no significant changes from prior study. ASSESSMENT: BI-RADS 1: Negative RECOMMENDATION: Routine annual mammography screening. This patient's information was entered into a reminder system with a target due date for their next mammogram.
== END 2021-12-21 09:25 | disposition home or self-care (01) ==
LOC: HO.MAMMO 09:24
PROVIDERS: PCP Internal Medicine; Visit Provider Internal Medicine
DX: Z12.31 Encounter for screening mammogram for malignant neoplasm of breast (principal)
CPT/HCPCS: 77063; 77067

== ENCOUNTER → 2022-01-26 10:33 | Outpatient (BNVA) | payer MEDICARE, OTHER, SELFPAY | PROVIDERS: PCP Internal Medicine; Visit Provider Internal Medicine | DX: R05.3 Chronic cough (principal); J30.9 Allergic rhinitis, unspecified; J98.01 Acute bronchospasm; F32.A Depression, unspecified | CPT/HCPCS: 36415; 80053; 80061; 82043; 83036; 85025; 99212 ==

== ENCOUNTER 2022-01-26 12:22 | Outpatient (REF) | payer MEDICARE, OTHER, SELFPAY ==
[2022-01-26 14:14] LABS: MANUAL DIFF FLAG NO
[2022-01-26 14:25] LABS: Basophils Percent Auto 0.6 % (0-2); Eosinophils Absolute Auto 0.1 X10*3/uL (0.0-0.4); Hematocrit 36.2 % (37.0-47.0); Hemoglobin 12.6 g/dl (12.0-16.0); Imm Gran Abs Auto 0.02 X10*3/uL (0.00-0.03); Imm Gran Pct Auto 0.3 % (0.0-0.4); Lymphocytes Absolute Auto 3.2 X10*3/uL (1.2-4.9); Lymphocytes Percent Auto 45.7 % (20-40); Mean Corpuscular HGB Conc 34.8 g/dl (31.0-35.0); Mean Corpuscular Hemoglobin 27.3 pg (27.0-33.0); Mean Corpuscular Volume 78.4 fL (80.0-98.0); Monocytes Absolute Auto 0.4 X10*3/uL (0.1-1.2); Monocytes Percent Auto 5.7 % (2-11); Neutrophils Absolute Auto 3.3 x10*3/uL (2.0-8.3); Neutrophils Percent Auto 46.7 % (45-73); Platelet Count 259 X10*3/uL (160-400); Red Blood Count 4.62 X10*6/uL (4.20-5.50); Red Cell Distribution Width 15.1 % (11.0-16.0)
[2022-01-26 14:39] LABS: Alanine Aminotransferase 29 U/L (0-31); Albumin Level 4.2 g/dL (3.5-5.0); Alkaline Phosphatase 82 U/L (39-117); Anion Gap 15 (12-20); Aspartate Amino Transferase 21 U/L (5-31); Bilirubin Total 0.5 mg/dL (0.0-1.0); Blood Urea Nitrogen 13 mg/dL (9-16); Calcium 9.4 mg/dL (8.4-10.2); Carbon Dioxide 24 mmol/L (22-29); Chloride 105 mmol/L (96-108); Cholesterol 197 mg/dL; Estimated Glomerular Filt Rate > 60; Glucose Fasting 129 mg/dL (60-99); HDL Cholesterol 57 mg/dL; LDL Cholesterol Calculated 107 mg/dl; Potassium 4.2 mmol/L (3.3-5.1); Sodium 140 mmol/L (135-145); Total Protein 7.6 g/dL (6.5-8.0); Triglycerides 165 mg/dL
[2022-01-26 14:43] LABS: Creatinine Urine 24.06 mg/dL; Microalbumin Urine < 5.0 mg/L
[2022-01-27 07:29] LABS: Estimated Average Glucose 131 mg/dL; Hemoglobin A1c % 6.2 %
== END 2022-01-26 12:23 | disposition home or self-care (01) ==
LOC: HO.10HDL 12:22
PROVIDERS: Absent Provider Internal Medicine Medical Oncology; Visit Provider Internal Medicine
DX: Z13.89 Encounter for screening for other disorder (principal)
CPT/HCPCS: 36415; 80053; 80061; 82043; 83036; 85025

== ENCOUNTER 2022-01-28 15:21 | Outpatient (REF) | payer MEDICARE, OTHER, SELFPAY ==
--- NOTE | ~2022-01-28 | US_ITS ---
EXAMINATION: US SOFT TISSUE NECK CLINICAL INFORMATION: Localized swelling, mass or lump supraclavicular region COMPARISON: Cervical spine CT August 2021 TECHNIQUE: Ultrasound of the neck soft tissues in the lower neck above the sternal notch FINDINGS: No soft tissue mass, adenopathy or fluid collection is seen. There is asymmetric prominence of the right sternomanubrial joint compared to the left. There is hypoechoic material adjacent to the joint space and possible pannus formation or joint effusion cannot be excluded. US/US soft tiss head and/or neck IMPRESSION: Normal-appearing soft tissues of the right lower anterior neck. Asymmetric prominence of the right sternomanubrial joint compared to the left. Possible joint effusion or pannus formation cannot be excluded.. Follow-up x-ray or CT should be considered if clinically indicated.
== END 2022-01-28 15:22 | disposition home or self-care (01) ==
LOC: HO.HMGCX 15:21
PROVIDERS: PCP Internal Medicine
DX: R22.1 Localized swelling, mass and lump, neck (principal)
CPT/HCPCS: 76536

== ENCOUNTER 2022-02-15 09:28 | Outpatient (REF) | payer MEDICARE, OTHER, SELFPAY ==
--- NOTE | ~2022-02-15 | CT_ITS ---
EXAMINATION: CT CHEST WITHOUT CONTRAST CLINICAL INFORMATION: Chronic cough. COMPARISON: Chest radiograph 12/01/2020. TECHNIQUE: Multidetector volumetric CT imaging of the chest was done. Axial MIP volume rendering provided. Sagittal and coronal reformatted images were obtained. This CT examination was performed using dose optimization techniques as appropriate, variously including the following: *Automated exposure control. *Adjustment of mA and/or kV according to patient size (this includes techniques or standardized protocols for targeted exams where dose is matched to indication/reason for exam; i.e. extremities or head). *Use of iterative reconstruction technique. DLP: 140 mGy-cm FINDINGS: LUNGS: A number of small pulmonary nodules are present throughout the lungs and cintron images of all have been saved. Most are on the order of 3 mm in size. The largest nodules are polygonal in shape and perifissural most likely representing lymph nodes. For example, there is a 6 mm perifissural nodule in the superior segment of the left lower lobe (7:277) with a similar 4 mm nodule in the right upper lobe (7:288). Other non-fissural nodules would include left lower lobe nodule (7:288). In the superior segment left lower lobe adjacent to the aorta, there is a 1.8 x 1.3 x 2.1 cm ground-glass nodule (7:215). No consolidations are seen. There is no bronchiectasis. There are some areas where there is some mild bronchial thickening present. No emphysematous changes. MEDIASTINUM: No mediastinal or hilar lymphadenopathy. The ascending aorta is mildly prominent but not aneurysmal at 3.7 cm. PLEURA: There is no pleural effusion. No pleural mass or thickening. AXILLA: No lymphadenopathy. UPPER ABDOMEN: Liver attenuation is decreased suggesting hepatic steatosis. A small hiatal hernia is present. OSSEOUS STRUCTURES: Degenerative changes are seen in the spine. No bony destructive lesions. CT/CT chest wo IV con IMPRESSION: 1. Multiple pulmonary nodules, the largest measuring 6 mm with a ground-glass nodule measuring up to 2.1 cm. 2017 Fleischner Society Recommendations for Lung Nodule(s): Follow-Up based on size (average of long- and short-axis diameters). Use most suspicious nodule for followup. Multiple Solid lung nodules 6-8 mm: Follow up management based on most suspicious nodule. In a low-risk patient, recommend a non-contrast Chest CT at 3-6 months, then consider another non-contrast Chest CT at 18-24 months. In a high-risk patient, recommend a non-contrast Chest CT at 3-6 months, then another non-contrast Chest CT at 18-[address] scan in 3 months would also suffice for followup of the periaortic ground-glass nodule. These guidelines do not apply to patients younger than 35 years, immunocompromised patients, and patients with cancer. F/u in patients with significant comorbidities as clinically warranted. For lung cancer screening, adhere to Lung-RADS guidelines. Reference: Radiology. 2017 Hiren; 284(1):228-243
== END 2022-02-15 09:29 | disposition home or self-care (01) ==
LOC: HO.CT 09:28
PROVIDERS: PCP Internal Medicine; Visit Provider Internal Medicine
DX: R05.2 Subacute cough (principal)
CPT/HCPCS: 71250

== ENCOUNTER → 2022-03-07 09:28 | Outpatient (BNVA) | payer MEDICARE, OTHER, SELFPAY | PROVIDERS: PCP Internal Medicine; Visit Provider Internal Medicine | DX: J30.9 Allergic rhinitis, unspecified (principal); J98.01 Acute bronchospasm; R91.1 Solitary pulmonary nodule | CPT/HCPCS: 99212 ==

== ENCOUNTER 2022-04-26 10:27 | Outpatient (REF) | payer MEDICARE, OTHER, SELFPAY ==
--- NOTE | ~2022-04-26 | CT_ITS ---
EXAMINATION: CT CHEST WITHOUT CONTRAST CLINICAL INFORMATION: Follow-up pulmonary nodule COMPARISON: Previous chest CT February 2022 TECHNIQUE: Multidetector volumetric CT imaging of the chest was done. Axial MIP volume rendering provided. Sagittal and coronal reformatted images were obtained. This CT examination was performed using dose optimization techniques as appropriate, variously including the following: *Automated exposure control *Adjustment of mA and/or kV according to patient size (this includes techniques or standardized protocols for targeted exams where dose is matched to indication/reason for exam; i.e. extremities or head) *Use of iterative reconstruction technique DLP: 118 mGy-cm FINDINGS: LUNGS: 1.1 x 04 1.7 cm groundglass attenuation left lower lobe nodule axial image 173 series 7. 4 mm peripheral or subpleural left lower lobe nodule adjacent to the fissure axial image 229 series 7. 3 mm left lower lobe nodule axial image 241 series 7. 2 mm peripheral or subpleural right upper lobe nodule adjacent to the minor fissure axial image 258 series 7. 2 mm peripheral or subpleural left lower lobe nodule adjacent to the fissure axial image 289 series 7. 3 mm peripheral or subpleural left lower lobe nodule axial image 403 series 7. 3 mm left lower lobe nodule adjacent to the diaphragmatic pleural surface axial image 394 series 7. MEDIASTINUM: Atherosclerotic disease. Normal heart size. Normal caliber thoracic aorta. No enlarged hilar or mediastinal lymph nodes. CORONARY ARTERY CALCIFICATION: Mild PLEURA: There is no pleural effusion. No pleural mass or thickening. AXILLA: No lymphadenopathy. UPPER ABDOMEN: Small left renal stone. OSSEOUS STRUCTURES: Degenerative changes of the spine. CT/CT chest wo IV con IMPRESSION: Stable pulmonary nodules from February 2022, largest a 1.1 x 1.7 cm groundglass attenuation nodule in the superior segment of the left lower lobe. Short-term follow-up chest CT, PET/CT or tissue sampling should be considered. Fleischner guidelines were followed.
== END 2022-04-26 10:28 | disposition home or self-care (01) ==
LOC: HO.CT 10:27
PROVIDERS: Visit Provider Internal Medicine
DX: R91.1 Solitary pulmonary nodule (principal)
CPT/HCPCS: 71250

== ENCOUNTER → 2022-05-03 09:50 | Outpatient (BNVA) | payer MEDICARE, OTHER, SELFPAY | PROVIDERS: PCP Internal Medicine; Visit Provider Internal Medicine | DX: J30.9 Allergic rhinitis, unspecified (principal); J98.01 Acute bronchospasm; R91.1 Solitary pulmonary nodule | CPT/HCPCS: 99212 ==

== ENCOUNTER 2022-07-18 15:02 | Outpatient (REF) | payer MEDICARE, OTHER, SELFPAY ==
[2022-07-18 15:26] LABS: MANUAL DIFF FLAG NO
[2022-07-18 17:28] LABS: Basophils Percent Auto 0.3 % (0-2); Eosinophils Percent Auto 0.3 % (0-4); Hematocrit 36.4 % (37.0-47.0); Hemoglobin 12.7 g/dl (12.0-16.0); Imm Gran Abs Auto 0.01 X10*3/uL (0.00-0.03); Imm Gran Pct Auto 0.2 % (0.0-0.4); Lymphocytes Absolute Auto 2.6 X10*3/uL (1.2-4.9); Lymphocytes Percent Auto 41.2 % (20-40); Mean Corpuscular HGB Conc 34.9 g/dl (31.0-35.0); Mean Corpuscular Volume 77.3 fL (80.0-98.0); Mean Platelet Volume 10.9 fL (9.4-12.3); Monocytes Absolute Auto 0.5 X10*3/uL (0.1-1.2); Monocytes Percent Auto 7.8 % (2-11); Neutrophils Absolute Auto 3.2 x10*3/uL (2.0-8.3); Neutrophils Percent Auto 50.2 % (45-73); Platelet Count 222 X10*3/uL (160-400); Red Blood Count 4.71 X10*6/uL (4.20-5.50); Red Cell Distribution Width 14.8 % (11.0-16.0); White Blood Count 6.3 X10*3/uL (4.8-10.8)
[2022-07-18 17:50] LABS: Alanine Aminotransferase 24 U/L (0-31); Albumin Level 3.7 g/dL (3.5-5.0); Alkaline Phosphatase 65 U/L (39-117); Anion Gap 14 (12-20); Aspartate Amino Transferase 23 U/L (5-31); Bilirubin Total 0.7 mg/dL (0.0-1.0); Blood Urea Nitrogen 13 mg/dL (9-16); Calcium 8.4 mg/dL (8.4-10.2); Carbon Dioxide 22 mmol/L (22-29); Chloride 102 mmol/L (96-108); Estimated Glomerular Filt Rate > 60; Glucose Random 114 mg/dL (60-115); Potassium 3.5 mmol/L (3.3-5.1); Sodium 134 mmol/L (135-145); Total Protein 6.6 g/dL (6.5-8.0)
== END 2022-07-18 15:03 | disposition home or self-care (01) ==
LOC: HO.LAB 15:02
PROVIDERS: PCP Internal Medicine; Visit Provider Internal Medicine
DX: R10.9 Unspecified abdominal pain (principal); R11.2 Nausea with vomiting, unspecified
CPT/HCPCS: 36415; 80053; 85025

== ENCOUNTER → 2022-08-08 10:08 | Outpatient (BNVA) | payer MEDICARE, OTHER, SELFPAY | PROVIDERS: PCP Internal Medicine; Visit Provider Internal Medicine | DX: J30.9 Allergic rhinitis, unspecified (principal); R91.1 Solitary pulmonary nodule; R05.3 Chronic cough | CPT/HCPCS: 99212 ==

== ENCOUNTER → 2022-09-22 07:39 | Outpatient (REF) | payer MEDICARE, OTHER, SELFPAY ==
--- NOTE | ~2022-09-22 | XR_ITS ---
EXAMINATION: XR HAND, RIGHT CLINICAL INFORMATION: Right hand pain COMPARISON: 01/07/2017 TECHNIQUE: PA, lateral, and oblique views of the right hand. FINDINGS: The bones and soft tissues are normal. No fracture. Alignment is anatomic. Joint spaces are maintained. No erosions or soft tissue calcifications. XR/XR hand RT min 3V IMPRESSION: Normal right hand.
--- NOTE | 2022-09-22 07:47 | CA_ITS ---
Transthoracic Echocardiogram Patient (Last, First, Middle): Julienne Candelario I Gender: Female Date of : 1945 Age: 77 Procedure Date: 09/22/2022 Procedure Type: Transthoracic Echocardiogram Location: OP Height: 162.56 cm Weight: 73.94 kg BSA: 1.79 m2 Heart Rate: 78 bpm BP: 180 / 90 mmHg [employer] Product Consultant: DIETER Referring MD: Dannie Huang MD Symptoms: MURMUR,UNSPECIFIED Study Quality: Good ECG Rhythm: Sinus Conclusions: - The left ventricular systolic function is hyperdynamic. The visually estimated ejection fraction is >70%. - There is moderate septal and moderate basal asymmetric hypertrophy. - There is moderate calcification of the aortic valve. There is mild to moderate aortic valve stenosis. - There is moderate posterior mitral annular calcification. Findings Left Ventricle Normal left ventricular cavity size. The left ventricular systolic function is hyperdynamic. The visually estimated ejection fraction is >70%. There is no evidence of regional wall motion abnormalities. Evidence suggests grade I (mild) diastolic dysfunction. There is moderate septal and moderate basal asymmetric hypertrophy. LV peak GLS -16%, but suspect underestimate. Right Ventricle Normal right ventricular cavity size and systolic function. Atria Both atria are normal in size. Aortic Valve There is moderate calcification of the aortic valve. There is mild to moderate aortic valve stenosis. The mean gradient is 12 mmHg. The aortic valve area is 1.15 cm2. There is no aortic valve regurgitation. Mitral Valve There is moderate posterior mitral annular calcification. There is trace mitral valve regurgitation. There is no mitral valve stenosis. Pulmonic Valve The pulmonic valve is likely normal. Tricuspid Valve There is trace tricuspid valve regurgitation. There is no evidence of pulmonary hypertension. Great Vessels The asc aorta is normal in size. Small plaque is seen in the sino tubular ridge. Venous The inferior vena cava is normal in size and collapses greater than 50% with inspiration. Pericardium/Pleural There is no evidence of pericardial effusion. Prior Study Comparison No prior study available for comparison. Measurements 2D Linear Measurements IVSd: 1.36 0.6-0.9/0.6-1.0 cm LVIDd: 4.02 3.9-5.3/4.2-5.9 cm LVIDd Index: 2.25 2.4-3.2/2.2-3.1 cm/m2 LVIDs: 2.04 2.0-3.6 cm LVPWd: 1.04 0.7-1.1 cm LA Diam: 3.50 2.7-3.8/3.0-4.0 cm LAIDs Index: 1.96 1.5-2.3 cm/m2 LV Mass: 207.63 67-162/88-224 g LV Mass Index: 115.99 43-95/49-115 g/m2 LVOT Diam: 1.80 3.0+(-)1.3 cm 2D Systolic Function EF 4C: 71.40 >55% EF 2C: 77.40 >55% EF BiP: 74.90 >55% Mitral Valve MV Pk E: 1.15 MV PK A: 1.26 MV Decel Time: 296.00 E/A: 0.90 E'Lateral: 6.31 E'Medial: 4.46 E/E' Med: 25.80 E/E' Lat: 18.20 PHT: 87.00 MVA PHT: 2.53 Decel [place]: 3.90 Aortic Valve AoV Pk Yeison: 2.33 AoV Mn Yeison: 1.63 AoV VTI: 0.52 AoV Pk Grad: 22.00 Aov Mn Grad: 12.00 DAVEY Cont.VTI: 1.15 LVOT LVOT Pk Yeison: 1.00 LVOT Mn Yeison: 0.75 LVOT VTI: 0.23 LVOT Pk Grad: 4.00 LVOT Mn Grad: 2.00 LVOT Diam: 1.80 LVOT Area: 2.54 Diastolic Function MV Pk E: 1.15 MV Pk A: 1.26 E/A: 0.90 E'Medial: 4.46 E/E' Med: 25.80 E' Laterial: 6.31 E/E' Lat: 18.20 Right Ventricle TAPSE (mm): 19.40 TVS' Yeison: 9.68 Tricuspid Valve TR Pk Yeison: 2.32 TR Pk Grad: 22.00 RA Press: 3.00 RVSP: 25.00 Great Vessels Aorta Sinus of Valsalva: 3.40 2.0-3.5 cm Ao Asc: 3.70 2.1-3.4 cm Pulmonary Valve PV Pk Yeison: 1.12 Peak PV Grad: 5.00 Updated in Other Vendor System with Status of Final Rufino Murry MD electronically signed on 09/24/2022 12:38:08 PM with status of Final
== END ==
LOC: HO.CARD 07:39
PROVIDERS: PCP Internal Medicine; Visit Provider Internal Medicine
DX: R01.1 Cardiac murmur, unspecified (principal); M79.641 Pain in right hand
CPT/HCPCS: 73130; 93306

== ENCOUNTER 2022-11-02 09:13 | Outpatient (REF) | payer MEDICARE, OTHER, SELFPAY ==
--- NOTE | ~2022-11-02 | CT_ITS ---
EXAMINATION: CT CHEST WITHOUT CONTRAST CLINICAL INFORMATION: Follow-up pulmonary nodule COMPARISON: Previous chest CT most recent April 2022 TECHNIQUE: Multidetector volumetric CT imaging of the chest was done. Axial MIP volume rendering provided. Sagittal and coronal reformatted images were obtained. This CT examination was performed using dose optimization techniques as appropriate, variously including the following: *Automated exposure control *Adjustment of mA and/or kV according to patient size (this includes techniques or standardized protocols for targeted exams where dose is matched to indication/reason for exam; i.e. extremities or head) *Use of iterative reconstruction technique DLP: 137 mGy-cm FINDINGS: COMPOSITION TILE LAYER: LUNGS: The heterogeneous partially solid partially groundglass attenuation nodule in the superior segment of the left lower lobe may be increased in size compared to prior exams. Evaluation is somewhat limited due to artifact from respiratory motion. This measures 1.4 x 2.5 cm in transverse and AP dimension compared to 1.1 x 0.7 cm and 2.4 cm in length compared to 2 cm on prior exams. There is question of increasing solid component versus vessels. This abuts the descending thoracic aorta. The remainder of the pulmonary nodules are stable. Largest nodule is a semisolid right lower lobe 5 mm nodule axial image 305 series 5. Stable scarring or subsegmental atelectasis at the lung bases. MEDIASTINUM: Atherosclerotic disease. Normal heart size. No pericardial effusion. Normal caliber thoracic aorta. Mild aortic valve calcification. No enlarged hilar or mediastinal lymph nodes. CORONARY ARTERY CALCIFICATION: Mild PLEURA: There is no pleural effusion. No pleural mass or thickening. AXILLA: Small axillary lymph nodes. No enlarged axillary lymph nodes. No chest wall mass. UPPER ABDOMEN: The gallbladder has been removed. OSSEOUS STRUCTURES: Degenerative changes of the spine. CT/CT chest wo IV con IMPRESSION: Limited exam due to artifact from respiratory motion. Question slight interval increase in size in the heterogeneous superior segment left lower lobe nodule abutting the descending thoracic aorta. Fleischner guidelines were followed.
== END 2022-11-02 09:14 | disposition home or self-care (01) ==
LOC: HO.CT 09:13
PROVIDERS: PCP Internal Medicine; Visit Provider Internal Medicine
DX: R91.8 Other nonspecific abnormal finding of lung field (principal); R91.1 Solitary pulmonary nodule
CPT/HCPCS: 71250

== ENCOUNTER 2022-11-25 10:46 | Outpatient (REF) | payer MEDICARE, OTHER, SELFPAY ==
[2022-11-25 13:46] LABS: MANUAL DIFF FLAG NO
[2022-11-25 13:53] LABS: Basophils Percent Auto 0.5 % (0-2); Eosinophils Absolute Auto 0.1 X10*3/uL (0.0-0.4); Eosinophils Percent Auto 1.6 % (0-4); Hematocrit 35.3 % (37.0-47.0); Hemoglobin 12.1 g/dl (12.0-16.0); Imm Gran Abs Auto 0.01 X10*3/uL (0.00-0.03); Imm Gran Pct Auto 0.2 % (0.0-0.4); Lymphocytes Absolute Auto 3.1 X10*3/uL (1.2-4.9); Lymphocytes Percent Auto 55.3 % (20-40); Mean Corpuscular HGB Conc 34.3 g/dl (31.0-35.0); Mean Corpuscular Hemoglobin 27.1 pg (27.0-33.0); Mean Platelet Volume 11.2 fL (9.4-12.3); Monocytes Absolute Auto 0.5 X10*3/uL (0.1-1.2); Monocytes Percent Auto 8.1 % (2-11); Neutrophils Absolute Auto 1.9 x10*3/uL (2.0-8.3); Neutrophils Percent Auto 34.3 % (45-73); Platelet Count 234 X10*3/uL (160-400); Red Blood Count 4.47 X10*6/uL (4.20-5.50); Red Cell Distribution Width 14.8 % (11.0-16.0); White Blood Count 5.7 X10*3/uL (4.8-10.8)
[2022-11-25 14:26] LABS: Alanine Aminotransferase 18 U/L (0-31); Albumin Level 3.6 g/dL (3.5-5.0); Alkaline Phosphatase 81 U/L (39-117); Anion Gap 10 (12-20); Aspartate Amino Transferase 15 U/L (5-31); Bilirubin Total 0.4 mg/dL (0.0-1.0); Blood Urea Nitrogen 12 mg/dL (9-16); Calcium 9.1 mg/dL (8.4-10.2); Carbon Dioxide 25 mmol/L (22-29); Chloride 107 mmol/L (96-108); Estimated Glomerular Filt Rate > 60; Glucose Random 137 mg/dL (60-115); Potassium 3.8 mmol/L (3.3-5.1); Sodium 138 mmol/L (135-145); Total Protein 6.7 g/dL (6.5-8.0)
== END 2022-11-25 10:47 | disposition home or self-care (01) ==
LOC: HO.HMGCLDS 10:46
PROVIDERS: PCP Internal Medicine; Visit Provider Internal Medicine Medical Oncology
DX: D72.820 Lymphocytosis (symptomatic) (principal)
CPT/HCPCS: 36415; 80053; 85025

== ENCOUNTER 2022-11-29 13:40 | Outpatient (REF) | payer MEDICARE, OTHER, SELFPAY ==
[2022-11-29 13:51] LABS: MANUAL DIFF FLAG NO
[2022-11-29 14:11] LABS: Basophils Percent Auto 0.5 % (0-2); Eosinophils Absolute Auto 0.1 X10*3/uL (0.0-0.4); Eosinophils Percent Auto 1.1 % (0-4); Hematocrit 35.3 % (37.0-47.0); Hemoglobin 12.3 g/dl (12.0-16.0); Imm Gran Abs Auto 0.01 X10*3/uL (0.00-0.03); Imm Gran Pct Auto 0.2 % (0.0-0.4); Lymphocytes Absolute Auto 2.7 X10*3/uL (1.2-4.9); Lymphocytes Percent Auto 48.4 % (20-40); Mean Corpuscular HGB Conc 34.8 g/dl (31.0-35.0); Mean Corpuscular Hemoglobin 27.3 pg (27.0-33.0); Mean Corpuscular Volume 78.4 fL (80.0-98.0); Monocytes Absolute Auto 0.4 X10*3/uL (0.1-1.2); Monocytes Percent Auto 6.3 % (2-11); Neutrophils Absolute Auto 2.4 x10*3/uL (2.0-8.3); Neutrophils Percent Auto 43.5 % (45-73); Platelet Count 225 X10*3/uL (160-400); Red Cell Distribution Width 14.4 % (11.0-16.0); Reticulocyte Percent 1.2 % (0.5-1.8); Reticulocytes Absolute 0.052 X10*6/uL (0.026-0.095); White Blood Count 5.5 X10*3/uL (4.8-10.8)
[2022-11-29 14:59] LABS: Erythrocyte Sedimentation Rate 27 MM/HR (0-20)
[2022-11-29 15:47] LABS: Ferritin 118 ng/mL (10-250)
[2022-12-01 22:03] LABS: TS Negative Control Passed; TS Panel A 3; TS Panel B 1; TS Positive Control Passed; TSpotTB Negative (Negative)
== END 2022-11-29 13:41 | disposition home or self-care (01) ==
LOC: HO.LAB 13:40
PROVIDERS: PCP Internal Medicine Medical Oncology; Visit Provider Internal Medicine Medical Oncology
DX: Z11.1 Encounter for screening for respiratory tuberculosis (principal); D64.9 Anemia, unspecified; D72.820 Lymphocytosis (symptomatic)
CPT/HCPCS: 36415; 82728; 85025; 85045; 85652; 86481

== ENCOUNTER 2022-12-13 09:52 | Outpatient (REF) | payer MEDICARE, OTHER, SELFPAY ==
--- NOTE | ~2022-12-13 | PE_ITS ---
EXAMINATION: Fluorine-18 FDG PET/CT Scan CLINICAL INDICATION: Initial treatment management. Solitary pulmonary nodule at superior segment of left lower lobe of the lung abutting the descending thoracic aorta seen on CT of the chest done on 11/02/2022. PROCEDURE: 65 minutes following the intravenous administration of 17.0 mCi of fluorine 18 FDG, images from the base of the skull to the mid thighs were obtained using a combined PET/CT scanner with CT scan based attenuation correction. No intravenous contrast was administered. Transverse, coronal, sagittal, and volume reconstruction projections were obtained. The patient's blood glucose as determined by a finger stick, was 153 mg/dl immediately prior to injection. The radiotracer was injected intravenously through left hand superficial vein, without any complications. Total CT exam dose-length product 709.42 mGy-cm * These CT images were obtained using dose optimization techniques as appropriate, variously including the following: Automated exposure control * Adjustment of mA and/or kV according to patient size (this includes techniques or standardized protocols for targeted exams where dose is matched to indication/reason for exam; i.e. extremities or head) * Use of iterative reconstruction technique COMPARISON: CT of the chest done on 11/02/2022 and 04/26/2022. FINDINGS: NECK AND VISUALIZED HEAD: No focal abnormal FDG avid disease. THORAX: Previously documented clinically known lung nodule involving the superior segment of left lower lobe of the lung adjacent to the descending thoracic aorta is reidentified, shows mild FDG avidity with SUV max of 1.9 (79/267). The remainder of the lung galeana bilaterally appear clear. No FDG avid mediastinal or hilar or axillary or internal mammary lymphadenopathy and/or pleural or pericardial effusion. ABDOMEN AND PELVIS: No FDG avid focal liver, splenic or adrenal disease. The gallbladder is surgically absent. The biliary tree is decompressed. The pancreas appear unremarkable. There are no FDG avid retroperitoneal, mesenteric, pelvic and/or groin lymphadenopathy. The bowel loops are decompressed. Small sliding hiatal hernia is noted. Mild colonic diverticulosis. No evidence of any pelvic mass or free fluid or free air. MUSCULOSKELETAL: No suspicious FDG avid focal osseous disease. VASCULAR: Calcific atherosclerotic disease of the aorta including coronary artery calcifications. No evidence of aneurysm. SUV max OF MEDIASTINAL BLOOD POOL: 2.3 SUV max OF LIVER: 3.2 PET/PET CT fusion skull to thigh IMPRESSION: 1. The index previously documented, clinically known lung nodule at the superior segment of the left lower lobe of the lung adjacent to the descending thoracic aorta is mildly FDG avid with SUV max of 1.9 (79/267). Please note that some primary lung malignancies such as adenocarcinoma in situ, minimally invasive adenocarcinoma, well-differentiated adenocarcinoma, and low-grade carcinoids may show minimal or no FDG avidity. 2. No evidence of any FDG avid mediastinal, hilar or axillary or internal mammary lymphadenopathy or extrathoracic disease.
== END 2022-12-13 09:53 | disposition home or self-care (01) ==
LOC: HO.PET 09:52
PROVIDERS: PCP Internal Medicine Medical Oncology; Visit Provider Internal Medicine Medical Oncology
DX: Z13.89 Encounter for screening for other disorder (principal)

== ENCOUNTER 2023-01-13 10:10 | Outpatient (REF) | payer MEDICARE, OTHER, SELFPAY ==
--- NOTE | ~2023-01-13 | MM_ITS ---
EXAMINATION: MM SCREENING DIGITAL BREAST TOMOSYNTHESIS, BILATERAL CLINICAL INFORMATION: Screening. Asymptomatic. COMPARISON: Mammography: 01/28/2022, and studies dating back to 02/10/2012. TECHNIQUE: Digital breast tomosynthesis is performed in both the craniocaudal and mediolateral oblique views along with computer-aided detection (CAD). Synthesized 2D images are generated from the tomosynthesis. FINDINGS: There are scattered areas of fibroglandular density (ACR BI-RADS breast composition Category b). There are no suspicious masses, suspicious grouped calcifications, or areas of architectural distortion. The parenchymal pattern is stable from prior exams. There are benign appearing both punctate scattered and vascular calcifications, unchanged. Stable intramammary lymph node upper outer left breast. No skin changes noted. MM/MM tomosynthesis screening BI IMPRESSION: No mammographic evidence of malignancy. Stable benign findings. ASSESSMENT: BI-RADS BI-RADS 2 - Benign Findings RECOMMENDATION: Routine annual mammography screening. 1 year F/U This examination should not preclude the clinical evaluation of a suspicious palpable abnormality. This patient's information was entered into a reminder system with a target due date for their next mammogram.
== END 2023-01-13 10:11 | disposition home or self-care (01) ==
LOC: HO.MAMMO 10:10
PROVIDERS: PCP Internal Medicine; Visit Provider Internal Medicine
DX: Z12.31 Encounter for screening mammogram for malignant neoplasm of breast (principal)
CPT/HCPCS: 77063; 77067

== ENCOUNTER → 2023-01-13 10:30 | Outpatient (BNV) | payer MEDICARE, OTHER, SELFPAY | PROVIDERS: PCP Internal Medicine; Visit Provider Radiology Diagnostic Radiology | DX: Z12.31 Encounter for screening mammogram for malignant neoplasm of breast (principal) | CPT/HCPCS: 77063; 77067 ==

== ENCOUNTER 2023-01-20 10:39 | Outpatient (AMB) | payer MEDICARE, OTHER, SELFPAY ==
--- NOTE | 2023-01-20 11:00 | MHC.OFFVIS ---
Intake Vital Signs 01/20/23 11:13 Height 5 ft 4 in Weight 161 lb BMI 27.6 BP 130/70 Blood Pressure Location Lt brachial Position Sitting Pulse 76 Pulse Oximetry (%) 97 Intake Visit Reasons: Abnormal CT scan Allergies niacin [Niacin] Allergy (Mild, Verified 01/20/23 11:14) RASH lactose [Lactose] Adverse Reaction (Mild, Verified 01/20/23 11:14) DIARRHEA atorvastatin [Lipitor] Adverse Reaction (Unknown, Verified 01/20/23 11:14) Unknown celecoxib [Celebrex] Adverse Reaction (Unknown, Verified 01/20/23 11:14) Unknown simvastatin Adverse Reaction (Unknown, Verified 01/20/23 11:14) Unknown Medication List - Last Reconciled 01/22/23 by Erwin Shaffer MD albuterol sulfate 90 mcg/actuation 2 puffs PO Q4-6H PRN azelastine 2 sprays intranasal BID betamethasone dipropionate 0.05% 1 appl topical BID PRN blood sugar diagnostic As directed blood-glucose meter (Panoratioyle [place] Lite kit) As directed carvedilol 6.25 mg PO BID cetirizine (Zyrtec) 10 mg PO DAILY PRN codeine-guaifenesin 10-100 mg/5 mL mL PO TID PRN dextromethorphan HBr (Delsym Cough) 15 mg PO Q8H PRN 30 days hydralazine 25 mg PO BID lancets (FreeStyle Lancets) As directed loratadine (Allergy Relief (loratadine)) 10 mg PO DAILY lorazepam 0.5 mg PO BID PRN multivitamin (Daily Multi-Vitamin tablet) 1 tab PO DAILY omeprazole 20 mg PO BID pravastatin 80 mg PO DAILY prednisone mg PO HPI Abnormal CT scan HPI Details 77 year old woman former smoker previously smoked 1ppd from age 17 to about 30 years ago who had a ct scan on 11/02/2022 which was compared to February and April 2022 showing a mixed nodule in the LLL sup segement with a slowly increasing solid component over that time. There is no LA or pleural fluid. She had pfts at [facility] which we will need to obtain. A PET scan was done 12/13/22 which showed suv 1.9 in the nodule and no increased uptake in the chest or outside of the chest elsewhere. Her main complaint is a persistent cough especially in the morning. She had a BS done this week which showed mininal reflux and appeared otherwise normal. She reports feeling generally in good health, denies wt loss, fevers, chills, or sweats. She reports sob sometimes with cough as above and no hemoptysis. Otherwise, 12 point ros done and documented seply in the medical record. She denies new neurologic sykmptoms. [facility] Medical History Allergic rhinitis Chronic cough Cough due to bronchospasm Depression Fibromyalgia GERD (gastroesophageal reflux disease) High cholesterol HTN (hypertension) IBS (irritable bowel syndrome) Osteopenia Pulmonary nodule Type 2 diabetes mellitus Surgical History History of colonoscopy History of esophagogastroduodenoscopy (EGD) History of laparoscopic cholecystectomy History of tubal ligation Family History Father Myocardial infarction Mother Diabetic coma Sister No problems noted. Brother GI bleed Social History Patient Tobacco Use Status: Former Tobacco user Years Smoked: (Smoked 1/2ppd from 1962 to 1980 - 10PYH) Physical Exam Vital Signs: Last Vital Signs Pulse 76 01/20/23 11:13 BP 130/70 01/20/23 11:13 Pulse Ox 97 01/20/23 11:13 BMI result Body Mass Index 27.6 nad rrr ctab abd soft no edema Assessment & Plan Assessment & Plan (1) Pulmonary nodule: Comment: (LLL nodule - SUV max 1.9 on PET 12/16/22) Code(s): R91.1 - Solitary pulmonary nodule Plan: I described all the imaging tests to her in detail which she seemed to understand. I explained how PET scans work and how her pet scan affects our level of suspicion for malignancy. We also discussed how the size, shape and electronic data interchange specialist time affects our level of suspicion for malignancy. Overall I do have a relatively high suspicion for malignancy theat is probably a low grade lepidic type of lung cancer. I explained how these cancers behave in a more indolent manner. We also discussed the diagnosis, staging, and treatment of lung cancer which she seemed to understand. options discussed were continued observation versus surgical wedge possible lobectomy diagnostic and possible therapeutic reasons. She wants to discuss with her primary, Dr. Huang, and decide how she wants to proceed. When she calls will either arrange a ct in 3 months versus Davinci LLL wedge possible lobectomy jaylyn. I do not jthink needle biopsy is a great option here because of the position and charactgeristics of the nodule. (2) Chronic cough: Comment: Chronic cough is predominantly due to chronic allergic rhinosinusitis . And may also be contributed by mild bronchospasm. She does have GERD symptoms but well controlled with use of omeprazole at this time. She needs symptomatic relief, and was doing well with Syrup of DESYM , but she wanted tablets. Now she does have a Tussin tablets to use which she uses p.r.n. at night and is relatively satisfied. Code(s): R05.3 - Chronic cough Plan: Discussed her chronic cough which is very frustrating to her. She has seen Dr. Saul and a registered nurse hh case manager at [facility] in parallel with repetition of many tests. Currently following with [facility] in the Fall. Coding Level of Care Code New Pt Level 5 (31894) Diagnoses Pulmonary nodule R91.1 Chronic cough R05.3 Time Spent (min) 67 Comment 57 Decision for surgery
[2023-01-20 11:13] VITALS: BP 130/70; PULSE 76; O2SAT 97; BMI 27.6
== END 2023-01-20 11:45 | disposition home or self-care (01) ==
PROVIDERS: PCP Internal Medicine; Visit Provider Surgery
DX: R91.1 Solitary pulmonary nodule (principal); R05.3 Chronic cough

== ENCOUNTER → 2023-01-20 10:39 | Outpatient (BNVA) | payer MEDICARE, OTHER, SELFPAY | PROVIDERS: PCP Internal Medicine; Visit Provider Surgery | DX: R91.1 Solitary pulmonary nodule (principal); R05.3 Chronic cough | CPT/HCPCS: 99202 ==

== ENCOUNTER 2023-01-24 09:46 | Outpatient (REF) | payer MEDICARE, OTHER, SELFPAY ==
[2023-01-24 10:57] LABS: Anion Gap 12 (12-20); Blood Urea Nitrogen 17 mg/dL (9-16); Calcium 9.7 mg/dL (8.4-10.2); Carbon Dioxide 23 mmol/L (22-29); Chloride 108 mmol/L (96-108); Estimated Average Glucose 131 mg/dL; Estimated Glomerular Filt Rate > 60; Glucose Random 148 mg/dL (60-115); Hemoglobin A1c % 6.2 % (<6.0); Potassium 4.1 mmol/L (3.3-5.1); Sodium 139 mmol/L (135-145)
== END 2023-01-24 09:47 | disposition home or self-care (01) ==
LOC: HO.10HDL 09:46
PROVIDERS: Visit Provider Internal Medicine
DX: I10 Essential (primary) hypertension (principal); R73.03 Prediabetes; J45.909 Unspecified asthma, uncomplicated
CPT/HCPCS: 36415; 80048; 83036

== ENCOUNTER 2023-03-16 12:05 | Outpatient (REF) | payer MEDICARE, OTHER, SELFPAY ==
--- NOTE | ~2023-03-16 | CT_ITS ---
EXAMINATION: CT CHEST WITHOUT CONTRAST CLINICAL INFORMATION: Solitary pulmonary nodule. COMPARISON: PET/CT 12/13/2022. CT chest 11/02/2022. CT chest 04/26/2022. TECHNIQUE: Multidetector volumetric imaging was performed of the chest without IV contrast. Sagittal and coronal reformatted images were obtained on the technologist's workstation. This CT examination was performed using dose optimization techniques as appropriate, variously including the following: *Automated exposure control *Adjustment of mA and/or kV according to patient size (this includes techniques or standardized protocols for targeted exams where dose is matched to indication/reason for exam; i.e. extremities or head) *Use of iterative reconstruction technique DLP: 242 mGy-cm FINDINGS: Lung: A dominant 2.6 x 1.4 cm subsolid nodule in the upper left lower lobe abutting the descending thoracic aorta and major fissure (7:78) is not significantly changed in size dating back to 04/26/2022. Solid component measures approximately 1 x 0.6 cm, also grossly unchanged. A 0.6 x 0.6 cm groundglass nodule in the right lower lobe (7:150) is not significantly changed compared to 04/26/2022. Multiple additional smaller mixed solid and groundglass nodules are grossly stable, some examples (series 7): 1. Solid 0.3 cm nodule in the right apex, image 31. 2. Very subtle approximately 0.6 cm groundglass nodule in the right upper lobe, image 31. 3. Subtle 0.4 cm groundglass nodule in the right middle lobe, image 141. 4. Solid 0.5 cm nodule in the left lower lobe, image 109. No focal consolidation. Minimal groundglass attenuation of the parenchyma in the medial right lower lobe immediately adjacent to spinal osteophyte complexes, favored to represent compressive atelectasis. No significant groundglass disease. Central airways are patent. No significant interstitial thickening nor cystic changes. Mediastinum: Normal heart size. No pericardial effusion. No mediastinal lymphadenopathy. Evaluation of the hilar structures is limited in the absence of IV contrast. Normal appearance of the thyroid gland. Multivessel coronary artery calcifications. Atherosclerotic disease of the thoracic aorta. Ascending thoracic aorta measures 3.8 cm in diameter, unchanged. Pericardium/Pleura: No pleural effusion or pneumothorax.. Chest Wall/Axilla: No lymphadenopathy by size criteria. Osseous Structures: No acute or aggressive osseous findings. Upper abdomen: Cholecystectomy. No adrenal lesion. Nonobstructive punctate left upper pole renal calculus. CT/CT chest wo con - High Res IMPRESSION: Multiple mixed solid, groundglass and subsolid bilateral pulmonary nodules are not convincingly changed compared to 11/02/2022 and 04/26/2022. Move Coordinator large subsolid nodule measuring 2.6 cm in the left lower lobe, solid component measuring 1 cm. Move Coordinator groundglass nodule in the right lower lobe measuring 0.6 cm. According to the UPDATED 2017 Fleischner Society recommendations, the advised follow-up imaging for any part solid nodule measuring greater than 15 mm is: Recommend PET/CT or biopsy/resection.
== END 2023-03-16 12:06 | disposition home or self-care (01) ==
LOC: HO.CT 12:05
PROVIDERS: PCP Internal Medicine; Visit Provider Surgery
DX: R91.1 Solitary pulmonary nodule (principal)
CPT/HCPCS: 71250

== ENCOUNTER 2023-03-21 09:47 | Outpatient (AMB) | payer MEDICARE, OTHER, SELFPAY ==
[2023-03-21 09:54] VITALS: BMI 27.6
--- NOTE | 2023-03-21 09:54 | A.OFFVIS_ITS ---
Intake Vital Signs 03/21/23 09:54 Height 5 ft 4 in Weight 161 lb BMI 27.6 Intake Visit Reasons: Comb Capper- R hand Dupuytren Intake Note: Julienne 78 yr old female who is rght hand dominant presents today for a new patient visit for an evaluation of her right hand dupuytrens as per Dr. Huang. States her index, middle and ring finger are contracted inward towards her palm. She first noticed this about 5-6 weeks ago and has worsen since. Denies any treatment. Also states she has pain in her middle finger and is not able to make a full close fist due to pain and stiffness in finger. Patient interested in discussing treatment vs surgical intervention. Patient is diabetic. A1C 6.2. States last cortisone injection she received in hand was in her left hand was many years ago, and has to go to the ER due to sugar spike. Allergies niacin [Niacin] Allergy (Mild, Verified 03/21/23 10:20) RASH lactose [Lactose] Adverse Reaction (Mild, Verified 03/21/23 10:20) DIARRHEA atorvastatin [Lipitor] Adverse Reaction (Unknown, Verified 03/21/23 10:20) Unknown celecoxib [Celebrex] Adverse Reaction (Unknown, Verified 03/21/23 10:20) Unknown simvastatin Adverse Reaction (Unknown, Verified 03/21/23 10:20) Unknown HPI Comb Capper- R hand Dupuytren HPI Details Julienne is a 78 year old right hand dominant woman who presents to discuss her right hand pain She complains primarily of stiffness and her right ring finger finger getting stuck when she makes a fist. She was referred here for possible Dupuytrens contractures of her index, middle, and ring fingers. She says she had a steroid injection in her left hand in the past, but she ended up in the ER due to a spike in blood sugar and BP. She was told the injection was too strong . She is a Diabetic and has a pulmonary nodule and chronic cough. Her Diabetes is controlled via diet and she is not on medication. She follows with Pulmonology and thoracic surgery, who suspect that the nodule may be lung cancer. She has a hx of smoking, and quit when she was ~48 years old. She sees the thoracic surgeon tomorrow for a consultation and says she is likely to have surgery before the end of the month. [facility] Medical History Allergic rhinitis Chronic cough Cough due to bronchospasm Depression Fibromyalgia GERD (gastroesophageal reflux disease) High cholesterol HTN (hypertension) IBS (irritable bowel syndrome) Osteopenia Pulmonary nodule Type 2 diabetes mellitus Surgical History History of colonoscopy History of esophagogastroduodenoscopy (EGD) History of laparoscopic cholecystectomy History of tubal ligation Family History Father Myocardial infarction Mother Diabetic coma Sister No problems noted. 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/ Review of Systems Const All systems reviewed & are unremarkable except as noted in HPI and below Physical Exam Vital Signs: BMI result Body Mass Index 27.6 Const General: cooperative, healthy appearing and no acute distress Orientation/consciousness: patient oriented x3 HEENT Head: Yes normocephalic and Yes atraumatic Eyes EOM: EOMs intact bilaterally Resp Effort & Inspection: normal respiratory effort and able to speak in complete sentences Cardio Jugular venous distension: no JVD Skin General skin exam: turgor normal Rashes: no rashes Neuro General: patient oriented x3 Extrem Other: Evaluation of Right Upper Extremity: The patient is alert, oriented, and in no acute distress Neuro: Median, Ulnar, Radial nerves motor and sensory intact and sensation is normal to the tips of all digits Vascular: Cap refill brisk ROM: She can make a fist and extend all her digits Visible and palpable locking and catching of the ring finger Tender over the a1 federico of the ring finger Skin: No lacerations or abrasions. General: No Ecchymosis. No Erythema or evidence of infection. No evidence of palmar fibrosis or of Dupuytren's disease in general. No contractures. Radiographs: 3 views of the right hand from 09/22/22 were reviewed by me today in clinic. They show no fractures or dislocations. There are some early osteoarthritic changes in multiple PIP and DIP joints. Psych Appearance: grossly normal Affect: normal affect Attitude: cooperative Assessment & Plan Assessment & Plan (1) Trigger finger, right ring finger: Code(s): M65.341 - Trigger finger, right ring finger (2) Pulmonary nodule: Comment: (LLL nodule - SUV max 1.9 on PET 12/16/22) Code(s): R91.1 - Solitary pulmonary nodule (3) Stiffness of right hand joint: Comment: Multiple PIP joints Code(s): M25.641 - Stiffness of right hand, not elsewhere classified Plan Assessment & Plan: 1. Right ring finger trigger finger 2. Right hand stiffness Primarily in the PIP joints I educated her about this condition I discussed operative and non-operative treatment options I recommend a steroid injection, as she is in discussion with a thoracic surgeon concerning a pulmonary nodule and suspected cancer She declined an injection today as she meets for a surgery consult tomorrow and is concerned elevated blood sugar may be an issue. She is a Diabetic, and she is well-controlled with diet & exercise I discussed activity modification, I encouraged gentle ROM exercises to minimize stiffness in her digits She will contact the clinic following her appointment tomorrow to schedule a trigger finger injection when she has more information concerning surgery This can be done by 1 of our PAs. Please note that greater than 30 minutes was spent with this patient going over the history, evaluating the patient and radiographs, formulating possible treatment options, discussing them with the patient, and documenting the visit. Scribed for Diane Dickey MD by Gibran Briseno, medical administrative specialist, on 03/21/23 at 10:30 AM, EST. Coding Level of Care Code New Pt Level 3 (12171) Diagnoses Trigger finger, right ring finger M65.341 Pulmonary nodule R91.1 Stiffness of right hand joint M25.641
== END 2023-03-21 10:37 | disposition home or self-care (01) ==
PROVIDERS: PCP Internal Medicine; Visit Provider Orthopaedic Surgery
DX: M65.341 Trigger finger, right ring finger (principal); R91.1 Solitary pulmonary nodule; M25.641 Stiffness of right hand, not elsewhere classified
CPT/HCPCS: 99203

== ENCOUNTER → 2023-03-21 09:47 | Outpatient (BNVA) | payer MEDICARE, OTHER, SELFPAY | PROVIDERS: PCP Internal Medicine; Visit Provider Orthopaedic Surgery ==

== ENCOUNTER 2023-09-05 08:31 | Outpatient (AMB) | payer MEDICARE, OTHER, SELFPAY ==
--- NOTE | 2023-09-05 08:32 | MHC.OFFVIS ---
Intake Vital Signs 09/05/23 08:33 Height 5 ft 4 in Weight 161 lb 13.109 oz BMI 27.8 BP 124/62 Blood Pressure Location Rt brachial Position Sitting Pulse 75 Pulse Source Pulse Oximeter Pulse Oximetry (%) 97 Oxygen Delivery Method Room Air Intake Visit Reasons: PSA/CM Intake Note: New patient presents today for joint pain consult, referred by Marcos You. C/o pain in hands, morning stiffness. Takes tylenol and aleve. Also reports rash in scalp and ears. Symptoms started approx a year ago Billing Assistant Required: No Accompanied by: Self / Same As Patient Allergies niacin [Niacin] Allergy (Mild, Verified 09/05/23 08:46) RASH lactose [Lactose] Adverse Reaction (Mild, Verified 09/05/23 08:46) DIARRHEA atorvastatin [Lipitor] Adverse Reaction (Unknown, Verified 09/05/23 08:46) Unknown celecoxib [Celebrex] Adverse Reaction (Unknown, Verified 09/05/23 08:46) Unknown simvastatin Adverse Reaction (Unknown, Verified 09/05/23 08:46) Unknown Medication List - Last Reconciled 09/05/23 by Ada Russell MD albuterol sulfate 90 mcg/actuation 2 puffs PO Q4-6H PRN azelastine 2 sprays intranasal BID betamethasone dipropionate 0.05% 1 appl topical BID PRN blood sugar diagnostic As directed blood-glucose meter (Viroolyle [place] Lite kit) As directed carvedilol 6.25 mg PO BID dextromethorphan HBr (Delsym Cough) 15 mg PO Q8H PRN 30 days hydralazine 25 mg PO BID lancets (FreeStyle Lancets) As directed loratadine (Allergy Relief (loratadine)) 10 mg PO DAILY lorazepam 0.5 mg PO BID PRN multivitamin (Daily Multi-Vitamin tablet) 1 tab PO DAILY omeprazole 20 mg PO BID pravastatin 80 mg PO DAILY HPI HPI Comments History of Present Illness Details This is a 78-year-old female who presents for evaluation of arthritis. She states that she was diagnosed with osteoarthritis by squirt machine operator Dr. Cabral years ago. She was prescribed NSAIDs as well as physical therapy. She states that she had lobectomy for lung cancer in April of 2023. Soon afterwards she started developing psoriasis on her ears and scalp. Recently evaluated by insurance risk surveyor and prescribed steroid creams and shampoos. She was referred by Dermatology for evaluation of arthritis. Patient states that she has morning stiffness of her hands lasting about 30 minutes. Denies any significant swelling. She also gets low back pain. When she has joint pain, she takes Tylenol 500 mg 3 or 4 tablets per day, and sometimes uses Aleve 1 or 2 tabs per day. States that her daughter has rheumatoid arthritis. she mentions that she will be going to Dr. Diane Dickey soon for a trigger finger injection [facility] Medical History Lung cancer Psoriasis Type 2 diabetes mellitus GERD (gastroesophageal reflux disease) Osteopenia Pulmonary nodule Depression Fibromyalgia IBS (irritable bowel syndrome) High cholesterol HTN (hypertension) Chronic cough Allergic rhinitis Cough due to bronchospasm Surgical History S/P lobectomy of lung History of tubal ligation History of esophagogastroduodenoscopy (EGD) History of laparoscopic cholecystectomy History of colonoscopy Family History Father Myocardial infarction Mother Diabetic coma Sister No problems noted. 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/ Review of Systems Const Reports fatigue and Reports headache(s) Eyes Reports itchy eyes ENT Reports headache(s) Card Reports dyspnea Resp Reports cough, Reports dyspnea and Reports wheezing GI Reports diarrhea Musc Reports arthralgias Skin/Breast Reports rash Neuro Reports headache(s) Psych Reports anxiety Endo Reports fatigue Aller/Immun Reports itchy eyes and Reports wheezing Physical Exam Vital Signs: Last Vital Signs Pulse 75 09/05/23 08:33 BP 124/62 09/05/23 08:33 Pulse Ox 97 09/05/23 08:33 Oxygen Delivery Method Room Air 09/05/23 08:33 BMI result Body Mass Index 27.8 Const General: cooperative, healthy appearing and comfortable Nutritional Appearance: overweight Orientation/consciousness: patient oriented x3 Limitations: no limitations HEENT Head: Yes normocephalic and Yes atraumatic Mouth: moist mucous membranes Resp Effort & Inspection: normal respiratory effort and able to speak in complete sentences Auscultation: wheezes Cardio Rate: regular rate Rhythm: regular rhythm Skin Other: psoriasis rashes inside both ears Neuro General: patient oriented x3 Extrem Other: Osteoarthritic changes of both hands with squaring of CMC joints Early Renetta's and Heberden's nodes Normal bilateral hand space studies faculty member strength No swelling No elbow pain with full flexion and extension Normal range of motion of both shoulders No knee pain with flexion and extension Negative MTP squeeze test bilaterally Normal nailfold capillaroscopy Assessment & Plan Assessment & Plan (1) Osteoarthritis of hands, bilateral: Code(s): M19.041 - Primary osteoarthritis, right hand; M19.042 - Primary osteoarthritis, left hand Qualifiers: Osteoarthritis type: primary Qualified Code(s): M19.041 - Primary osteoarthritis, right hand; M19.042 - Primary osteoarthritis, left hand Plan: This is a 78-year-old female presents for evaluation of arthritis. She was recently diagnosed with psoriasis and she was referred by Dermatology for evaluation of arthritis. Upon evaluation her symptoms are rather consistent with osteoarthritis. There are no signs suggestive of an inflammatory arthritis. Discussed management of osteoarthritis with patient. Can take Tylenol up to 2500 mg daily. Can use Aleve sparingly. Discussed long-term side effects of systemic NSAIDs such as GI, nephro and cardiotoxicity Can apply Voltaren gel on painful joints Referred patient to occupational therapy Consider buying a paraffin wax machine Discussed symptoms and signs that are suggestive of an inflammatory arthritis. Follow-up as needed Plan I spent 46 minutes reviewing patient's chart, evaluating patient, placing orders, counseling patient and documenting in the chart Orders: Orders OT Evaluation and Treatment Today M19.041 - Primary osteoarthritis, right hand, M19.042 - Primary osteoarthritis, left hand Coding Level of Care Code New Pt Level 4 (53287) Diagnoses Primary osteoarthritis of both hands M19.041; M19.042 Osteoarthritis type: primary
[2023-09-05 08:33] VITALS: BP 124/62; PULSE 75; O2SAT 97; BMI 27.8
== END 2023-09-05 09:10 | disposition home or self-care (01) ==
PROVIDERS: PCP Internal Medicine; Visit Provider Student in an Organized Health Care Education/Training Program
DX: M19.041 Primary osteoarthritis, right hand (principal); M19.042 Primary osteoarthritis, left hand
CPT/HCPCS: 99204

== ENCOUNTER → 2023-09-05 08:31 | Outpatient (BNVA) | payer MEDICARE, OTHER, SELFPAY | PROVIDERS: PCP Internal Medicine; Visit Provider Student in an Organized Health Care Education/Training Program | DX: M65.331 Trigger finger, right middle finger (principal); M65.341 Trigger finger, right ring finger; M25.641 Stiffness of right hand, not elsewhere classified; M19.041 Primary osteoarthritis, right hand; M19.042 Primary osteoarthritis, left hand | CPT/HCPCS: 20550; 99202; 99212; J1100 ==

== ENCOUNTER 2023-09-05 09:27 | Outpatient (AMB) | payer MEDICARE, OTHER, SELFPAY ==
--- NOTE | 2023-09-05 09:30 | MHC.OFFVIS ---
Intake Intake Visit Reasons: RT hand Trigger MF Inj Intake Note: Julienne 78 yr old female presents today for a right Middle finger trigger injection. Last A1C from 01/24/23 was a 6.2. Allergies niacin [Niacin] Allergy (Mild, Verified 09/05/23 09:31) RASH lactose [Lactose] Adverse Reaction (Mild, Verified 09/05/23 09:31) DIARRHEA atorvastatin [Lipitor] Adverse Reaction (Unknown, Verified 09/05/23 09:31) Unknown celecoxib [Celebrex] Adverse Reaction (Unknown, Verified 09/05/23 09:31) Unknown simvastatin Adverse Reaction (Unknown, Verified 09/05/23 09:31) Unknown HPI RT hand Trigger MF Inj HPI Details Julienne is a 78 year old right hand dominant Diabetic woman who presents with complaints of right middle finger locking She complains of painful locking & stiffness of her right middle finger. She would like an injection today. She reports some new occasional locking in the left middle finger as well. She says this is tolerable however. 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 She says she had a steroid injection in her left hand in the past, but she ended up in the ER due to a spike in blood sugar and BP. She was told the injection was too strong . She is a Diabetic and has a chronic cough. Her Diabetes is controlled via diet and she is not on medication. She follows with Pulmonology and thoracic surgery, and had a pulmonary nodule removed in 04/2023. She has a hx of smoking, and quit when she was ~48 years old. [facility] Medical History Lung cancer Psoriasis Type 2 diabetes mellitus GERD (gastroesophageal reflux disease) Osteopenia Pulmonary nodule Depression Fibromyalgia IBS (irritable bowel syndrome) High cholesterol HTN (hypertension) Chronic cough Allergic rhinitis Cough due to bronchospasm Surgical History S/P lobectomy of lung History of tubal ligation History of esophagogastroduodenoscopy (EGD) History of laparoscopic cholecystectomy History of colonoscopy Family History Father Myocardial infarction Mother Diabetic coma Sister No problems noted. 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 They show no fractures or dislocations. There are some early osteoarthritic changes in multiple PIP and DIP joints. Office Procedures Fracture Care Details: No fracture, injection Fracture Billing Code: Fracture Billing Code Assessment & Plan Assessment & Plan (1) Trigger finger, right middle finger: Code(s): M65.331 - Trigger finger, right middle finger (2) Trigger finger, right ring finger: Code(s): M65.341 - Trigger finger, right ring finger (3) Stiffness of right hand joint: Comment: Multiple PIP joints Code(s): M25.641 - Stiffness of right hand, not elsewhere classified Plan Assessment & Plan: 1. Right middle finger trigger finger I educated her about this condition I discussed operative and non-operative treatment options The patient would like to proceed with an injection today She is a Diabetic, and she is well-controlled with diet & exercise Injection #1: The risks and benefits of a steroid injection including but not limited to risk of damage to blood vessels, nerves, tendons, infection, skin bleaching, failure to improve symptoms, increased pain, and possible need for further injections or other intervention were discussed with the patient and the patient wishes to proceed with the steroid injection. Once consent was obtained, I sterilely prepped the area over the A1 federico of the flexor tendon sheath of the Right middle finger. I then injected the flexor tendon sheath with a combination of 1 mL of dexamethasone (4mg/ml), and 1% lidocaine. The patient tolerated the procedure well with no complications. If the patient continues to have locking and catching 4-6 weeks following this injection, they may call to schedule appointment to discuss alternative treatment options She is going to head up stairs after this visit to talk to her primary care provider about how to manage any elevated blood glucose following this injection. Follow-up prn 2. Right ring finger trigger finger No complaints today 3. Right hand stiffness Primarily in the PIP joints Scribed for Diane Dickey MD by Gibran Briseno medical care manager, on 09/05/23 at 9:50 AM, EST. Coding Level of Care Code Est Pt Level 3 (26947) Diagnoses Trigger finger, right middle finger M65.331 Trigger finger, right ring finger M65.341 Stiffness of right hand joint M25.641 CPT Codes Fracture Care - Fracture Billing Code: Fracture Billing Code ([id number])
== END 2023-09-05 10:08 | disposition home or self-care (01) ==
PROVIDERS: PCP Internal Medicine; Visit Provider Orthopaedic Surgery
DX: M65.331 Trigger finger, right middle finger (principal); M65.341 Trigger finger, right ring finger; M25.641 Stiffness of right hand, not elsewhere classified
CPT/HCPCS: 20550; 99213

== ENCOUNTER 2023-09-29 12:01 | Outpatient (REF) | payer MEDICARE, OTHER, SELFPAY ==
[2023-09-29 12:58] LABS: MANUAL DIFF FLAG NO
[2023-09-29 13:00] LABS: Basophils Absolute Auto 0.1 X10*3/uL (0.0-0.2); Basophils Percent Auto 0.7 % (0-2); Eosinophils Absolute Auto 0.1 X10*3/uL (0.0-0.4); Eosinophils Percent Auto 1.4 % (0-4); Hematocrit 36.9 % (37.0-47.0); Hemoglobin 13.1 g/dl (12.0-16.0); Imm Gran Abs Auto 0.02 X10*3/uL (0.00-0.03); Imm Gran Pct Auto 0.3 % (0.0-0.4); Lymphocytes Absolute Auto 3.9 X10*3/uL (1.2-4.9); Lymphocytes Percent Auto 52.7 % (20-40); Mean Corpuscular HGB Conc 35.5 g/dl (31.0-35.0); Mean Corpuscular Hemoglobin 28.1 pg (27.0-33.0); Mean Corpuscular Volume 79.2 fL (80.0-98.0); Mean Platelet Volume 10.8 fL (9.4-12.3); Monocytes Absolute Auto 0.5 X10*3/uL (0.1-1.2); Monocytes Percent Auto 6.7 % (2-11); Neutrophils Absolute Auto 2.8 x10*3/uL (2.0-8.3); Neutrophils Percent Auto 38.2 % (45-73); Platelet Count 276 X10*3/uL (160-400); Red Blood Count 4.66 X10*6/uL (4.20-5.50); Red Cell Distribution Width 14.9 % (11.0-16.0); White Blood Count 7.3 X10*3/uL (4.8-10.8)
[2023-09-29 13:11] LABS: Alanine Aminotransferase 27 U/L (0-31); Albumin Level 4.2 g/dL (3.5-5.0); Alkaline Phosphatase 74 U/L (39-117); Anion Gap 12 (12-20); Aspartate Amino Transferase 23 U/L (5-31); Bilirubin Total 0.5 mg/dL (0.0-1.0); Blood Urea Nitrogen 17 mg/dL (9-16); Calcium 9.6 mg/dL (8.4-10.2); Carbon Dioxide 27 mmol/L (22-29); Chloride 106 mmol/L (96-108); Estimated Glomerular Filt Rate > 60; Glucose Random 131 mg/dL (60-115); Potassium 3.9 mmol/L (3.3-5.1); Sodium 141 mmol/L (135-145); Total Protein 7.9 g/dL (6.5-8.0)
[2023-09-29 13:13] LABS: Estimated Average Glucose 134 mg/dL; Hemoglobin A1c % 6.3 % (<6.0)
[2023-09-29 14:25] LABS: Creatinine Urine 132.21 mg/dL; Microalbum/Creatinine Ratio Ur 6.8 ug/mg cr (<30)
== END 2023-09-29 12:02 | disposition home or self-care (01) ==
LOC: HO.10HDL 12:01
PROVIDERS: Visit Provider Internal Medicine
DX: E11.9 Type 2 diabetes mellitus without complications (principal); I10 Essential (primary) hypertension; K21.9 Gastro-esophageal reflux disease without esophagitis
CPT/HCPCS: 36415; 80053; 82043; 82570; 83036; 85025

== ENCOUNTER 2023-10-27 09:43 | Day surgery (SDC) | payer MEDICARE, OTHER, SELFPAY ==
[2023-10-26 08:08] VITALS: BMI 27.8
--- NOTE | 2023-10-26 10:19 | P.CONAN_ITS ---
Documented by User: Em Seymour NP 10/26/23 10:20 HPI - Anesthesia Eval Consult details Narrative: 78yo F for Upper Endoscopy and Colonoscopy PMF Active Problems Active Problems: All Active Problems Trigger finger, right middle finger (Acute) Osteoarthritis of hands, bilateral (Acute) Stiffness of right hand joint (Acute) Trigger finger, right ring finger (Acute) Lump in neck (Acute) Pulmonary nodule (Acute) Allergic rhinitis (Acute) Chronic cough (Acute) Cough due to bronchospasm (Acute) Depression (Acute) Past Medical History Medical History Peptic ulcer Lung cancer Psoriasis Type 2 diabetes mellitus GERD (gastroesophageal reflux disease) Osteopenia Pulmonary nodule Depression Fibromyalgia IBS (irritable bowel syndrome) High cholesterol HTN (hypertension) Chronic cough Allergic rhinitis Cough due to bronchospasm Family History Family History Father Myocardial infarction Mother Diabetic coma Sister No problems noted. 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 Allergies Allergy/AdvReac Type Severity Reaction Status Date / Time niacin [Niacin] Allergy Mild RASH Verified 09/05/23 09:31 lactose [Lactose] AdvReac Mild DIARRHEA Verified 09/05/23 09:31 atorvastatin [Lipitor] AdvReac Unknown Unknown Verified 09/05/23 09:31 celecoxib [Celebrex] AdvReac Unknown Unknown Verified 09/05/23 09:31 simvastatin AdvReac Unknown Unknown Verified 09/05/23 09:31 Home Medications ?Medication ?Instructions ?Recorded ?Confirmed ?Last Taken ?Type blood sugar diagnostic #10 ea 02/29/20 01/22/23 Unknown History carvedilol 6.25 mg tablet 6.25 mg PO BID 02/29/20 10/27/23 10/27/23 History hydralazine 25 mg tablet 25 mg PO BID 02/29/20 10/27/23 10/27/23 History pravastatin 80 mg tablet 80 mg PO DAILY 02/29/20 10/27/23 10/26/23 History lorazepam 1 mg tablet 0.5 mg PO BID Anxiety 02/10/21 10/27/23 10/26/23 History blood-glucose meter (FreeStyle #1 ea 05/10/21 01/22/23 Unknown History Industry Lite kit) lancets 28 gauge (FreeStyle #100 ea 05/10/21 01/22/23 Unknown History Lancets) omeprazole 20 mg capsule,delayed 20 mg PO BID 11/11/21 10/27/23 10/26/23 History release azelastine 137 mcg (0.1 %) nasal 2 spray intranasal BID 01/26/22 10/26/23 Unknown History spray aerosol fluticasone propionate 110 1 puff inhalation BID 10/26/23 10/26/23 Unknown History mcg/actuation HFA aerosol inhaler loratadine 10 mg tablet (Claritin) 10 mg PO DAILY 10/26/23 10/27/23 10/26/23 History Exam Height,Weight and Vital Signs: Height 5 ft 4 in Weight 73.482 kg Pertinent Lab Results Pertinent Lab Results: Laboratory Tests 09/29/23 12:10 WBC 7.3 Hgb 13.1 Hct 36.9 L Plt Count 276 Sodium 141 Potassium 3.9 Chloride 106 Carbon Dioxide 27 BUN 17 H Creatinine 0.73 Narrative Narrative: ECHO 2022 Conclusions: - The left ventricular systolic function is hyperdynamic. The visually estimated ejection fraction is >70%. - There is moderate septal and moderate basal asymmetric hypertrophy. - There is moderate calcification of the aortic valve. There is mild to moderate aortic valve stenosis. - There is moderate posterior mitral annular calcification. Documented by User: Nargis Wylie MD 10/27/23 10:24 [facility] Past Medical History Medical History Peptic ulcer Lung cancer Psoriasis Type 2 diabetes mellitus GERD (gastroesophageal reflux disease) Osteopenia Pulmonary nodule Depression Fibromyalgia IBS (irritable bowel syndrome) High cholesterol HTN (hypertension) Chronic cough Allergic rhinitis Cough due to bronchospasm Family History Family History Father Myocardial infarction Mother Diabetic coma Sister No problems noted. 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 occupational status: 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 Allergies Allergy/AdvReac Type Severity Reaction Status Date / Time niacin [Niacin] Allergy Mild RASH Verified 09/05/23 09:31 lactose [Lactose] AdvReac Mild DIARRHEA Verified 09/05/23 09:31 atorvastatin [Lipitor] AdvReac Unknown Unknown Verified 09/05/23 09:31 celecoxib [Celebrex] AdvReac Unknown Unknown Verified 09/05/23 09:31 simvastatin AdvReac Unknown Unknown Verified 09/05/23 09:31 Home Medications ?Medication ?Instructions ?Recorded ?Confirmed ?Last Taken ?Type blood sugar diagnostic #10 ea 02/29/20 01/22/23 Unknown History carvedilol 6.25 mg tablet 6.25 mg PO BID 02/29/20 10/27/23 10/27/23 History hydralazine 25 mg tablet 25 mg PO BID 02/29/20 10/27/23 10/27/23 History pravastatin 80 mg tablet 80 mg PO DAILY 02/29/20 10/27/23 10/26/23 History lorazepam 1 mg tablet 0.5 mg PO BID Anxiety 02/10/21 10/27/23 10/26/23 History blood-glucose meter (FreeStyle #1 ea 05/10/21 01/22/23 Unknown History Industry Lite kit) lancets 28 gauge (FreeStyle #100 ea 05/10/21 01/22/23 Unknown History Lancets) omeprazole 20 mg capsule,delayed 20 mg PO BID 11/11/21 10/27/23 10/26/23 History release azelastine 137 mcg (0.1 %) nasal 2 spray intranasal BID 01/26/22 10/26/23 Unknown History spray aerosol fluticasone propionate 110 1 puff inhalation BID 10/26/23 10/26/23 Unknown History mcg/actuation HFA aerosol inhaler loratadine 10 mg tablet (Claritin) 10 mg PO DAILY 10/26/23 10/27/23 10/26/23 History Exam Airway Mallampati Class: II TM Dist: >3cm Neck ROM: Full Loose/Missing/Broken Teeth: No Heart: RRR Lungs: CTA Assessment and Plan Assessment Anesthesia Assessment: Anesthesia Plan Discussed and Chart Reviewed Final Anesthetic Review History of Problems with Anesthesia: No NPO: Yes ASA Class: III Final Preanesthetic Review: Meds/Allgs Chart Reviewed, Consent Obtained/Reviewed and Anes Risks/Benef Reviewed Patient Risk: Intermediate Procedure Risk: Intermediate Anesthetic Plan Anesthetic Plan: MAC: Disposition: Standard PACU
[2023-10-27 09:45] VITALS: BMI 27.6
[2023-10-27 10:10] VITALS: BP 169/66; PULSE 86; RESP 16; TEMP 35.8; O2SAT 93
[2023-10-27 10:17] LABS: Glucose, Whole Blood 154 mg/dL (60-115)
[2023-10-27 11:30] VITALS: BP 90/50; PULSE 67; RESP 18; TEMP 36.2; O2SAT 98
--- NOTE | 2023-10-27 11:30 | PM.OP ---
Brief Operative Note Date of Service: 10/27/23 Pre-op diagnosis: GERD, Screening Post-op diagnosis: other (Hiatal hernia, Colon polyps) Procedure: EGD, Colonoscopy to the cecum and TI with cold snare polypectomy x 3 Surgeon: Farbice Blanchard MD Anesthesia: MAC Was an Oceanographer Physical used for this Procedure?: No Estimated blood loss (mL): 2.0 Pathology: other (A. Polyp at 40cm B. Cecal polyp C. Polyp at 50cm) Condition: stable Disposition: PACU
[2023-10-27 11:45] VITALS: BP 123/61; PULSE 78; RESP 16; TEMP 36.2; O2SAT 97
--- NOTE | 2023-10-27 12:02 | OP_ITS ---
DATE OF SERVICE: 10/27/2023 SURGEON: Fabrice Blanchard MD INDICATIONS: The patient presents for evaluation of gastroesophageal reflux, personal history of tubular adenoma of the colon and colorectal cancer screening. Full consent has been obtained from her for this, including risks of bleeding and perforation. PREOPERATIVE DIAGNOSIS: POSTOPERATIVE DIAGNOSIS: PROCEDURE PERFORMED: Esophagogastroduodenoscopy and colonoscopy to the cecum and terminal ileum with cold snare polypectomy x3. ESTIMATED BLOOD LOSS: COMPLICATIONS: ANESTHESIA: Monitored anesthesia care. ASSISTANTS: SPECIMENS: PREOPERATIVE DIAGNOSES: Colorectal cancer screening, personal history of tubular adenoma of the colon, the gastroesophageal reflux. POSTOPERATIVE DIAGNOSES: Colorectal cancer screening, personal history of tubular adenoma of the colon, the gastroesophageal reflux, hiatal hernia, colon polyps, diverticulosis, internal and external hemorrhoids. DESCRIPTION OF PROCEDURE: The patient was placed in the left lateral decubitus position the Olympus video gastroscope was passed in the posterior oropharynx and upper esophagus under direct vision. The scope was passed slowly into the distal esophagus. The gastroesophageal junction appeared normal at 35 cm. There was no sign of any esophagitis nor Salvador esophagus. The scope entered the stomach. There was a small hiatal hernia. The scope was advanced to the pylorus, and the duodenum was cannulated to the descending portion. The duodenum including the bulb appeared normal without mass or ulceration. The scope was withdrawn back in the stomach. The gastric antrum and body appeared normal with good peristalsis. The scope was retroflexed visualizing the proximal stomach carefully, which appeared normal, without any sign of mass or ulceration. The scope was straightened and withdrawn back to the esophagus. The esophageal mucosa appeared normal. The scope was withdrawn from the patient. She was turned around for the colonoscopy. The digital rectal exam revealed prominent external hemorrhoids. The Olympus video pediatric colonoscope was entered into the rectum and advanced easily to the cecum. Once in the cecum, I did identify cecal pouch with appendiceal orifice and a normal-appearing ileocecal valve. The terminal ileum was cannulated and appeared normal. The scope was withdrawn back in the colon. The entire cecum appeared normal other than an approximately 5 mm polyp, which was removed by cold snare polypectomy and recovered by suction. The polypectomy site appeared clean, without any sign of residual polyp nor significant bleeding. The scope was then slowly withdrawn assessing all mucosal surfaces carefully. Preparation was excellent. At 50 cm and at 40 cm were approximately 5 mm polyps, which were each removed by cold snare polypectomy and recovered by suction. The polypectomy sites appeared clean, without any sign of residual polyp nor significant bleeding. I did not visualize any other polyps, colitis, nor angiodysplasia. There was a mild amount of sigmoid diverticulosis. In the rectum, scope was retroflexed visualizing internal hemorrhoids, but no other pathology. The rectal mucosa appeared normal. The scope was straightened and withdrawn from the patient. She tolerated the procedures well and was returned to the recovery area in stable condition. IMPRESSION: 1. Colon polyps. 2. Diverticulosis. 3. Internal and external hemorrhoids. 4. Hiatal hernia. PLAN: The results of the biopsy will be checked. Given her age and these relatively minimal findings, I do not think she would need any further screening colonoscopies. She will continue her omeprazole for her reflux. She was advised not to use any aspirin and NSAIDs for 1 week. She will see me on a p.r.n. basis. MD ALBER Cárdenas/MEGHNA / [phone]
== END 2023-10-27 12:00 | disposition home or self-care (01) ==
PROVIDERS: PCP Internal Medicine; Visit Provider Internal Medicine
PROC: (CPT 43235; principal; 2023-10-27 10:30)
DX: K44.9 Diaphragmatic hernia without obstruction or gangrene (principal); K21.9 Gastro-esophageal reflux disease without esophagitis; Z12.11 Encounter for screening for malignant neoplasm of colon; D12.0 Benign neoplasm of cecum; D12.5 Benign neoplasm of sigmoid colon; K57.30 Diverticulosis of large intestine without perforation or abscess without bleeding; K64.8 Other hemorrhoids; K64.4 Residual hemorrhoidal skin tags; Z86.010 Personal history of colon polyps; E11.9 Type 2 diabetes mellitus without complications; I10 Essential (primary) hypertension; E78.00 Pure hypercholesterolemia, unspecified; Z79.02 Long term (current) use of antithrombotics/antiplatelets; Z79.899 Other long term (current) drug therapy
CPT/HCPCS: 43235; 45385; 82947; 88305; J2704

== ENCOUNTER 2023-11-10 13:30 | Outpatient (RCR) | payer MEDICARE, OTHER, SELFPAY ==
--- NOTE | 2023-10-06 13:52 | MHC.OT.EP ---
[address] [phone] Occupational Therapy Plan of Care Patient Name: Julienne Brown Date of Evaluation: 10/06/23 Diagnosis: OA OF B/L HANDS Pain Location: R IF PIPj 6/10 AT REST AND WITH USE GENERALLY 6/10 IN ALL DIGITS Pain Score: 6/10 Pain Scale Used: Numeric (0 - 10) Aggravating Factors: WAKING IN AM, GENERAL USE Alleviating Factors: TYLENOL, HAS NOT TRIED VOLTAREN GEL, HAS USED HEAT IN THE PAST (NEEDS NEW HEATING PAD), WARM WATER SOAKS, RESTING Assessment: MS BROWN HAS HAD A LONG HISTORY OF ARTHRITIS IN B/L HANDS. SHE STATES THAT IN THE LAST SIX MONTHS OR SO, HER PAIN HAS INCREASED. SHE REPORTS PAIN AND STIFFNESS GREATEST IN THE MORNING, UPON WAKING. SHE HAS DIFFICULTIES PERFORMING FINE MOTOR TASKS AND HAS MODIFIED HER DAILY ROUTINES TO PROMOTE INDEPENDENCE. A 58% LIMITATION IS REPORTED PER THE QUICK DASH ASSESSMENT. A BRIEF COURSE OF OT IS WARRANTED TO ADDRESS AREAS MENTIONED BELOW. Frequency and Duration: The patient will be seen 1X/WEEK FOR 4 WEEKS Short Term Goals: SEE BELOW Senior Care Goals: IND HEP IND USE OF HEAT MODALITIES, EXPLORE HOME PARAFFIN UNIT IND JT PROTECTION AND ACTIVITY MODIFICATION STRATEGIES REPORT <3/10 PAIN AT REST IND ARTHRITIS GLOVES OR ORTHOSIS USE Treatment Plan: Therapeutic Exercise Therapeutic Activity Home Exercise Program Splinting Neuro Re-ed Patient Education Desensitization/Sensory Re-ed Edema Control ADL Training Ultrasound NMES Iontophoresis Paraffin Fluidotherapy MHP Cold Packs Joint Mobilization Soft Tissue Mobilization Kinesiotaping Other (see comments) POSSIBLE ORTHOSIS FABRICATION Electronically Signed By: JESUS MARCELO OTR/L Please Sign and return to therapist. Thank you once again for your referral.
--- NOTE | 2023-11-10 13:46 | MHC.OT.DC ---
[address] [phone] F: [phone] Occupational Therapy Discharge Note Patient Name: Julienne Brown Provider: Ada Russlel Diagnosis: OA OF B/L HANDS Date of Evaluation: 10/06/23 Date of Discharge: 11/10/23 Treatments to Date: 2 Cancellations to Date: 1 No Shows to Date: 0 Discharge Status: Achieved Goals Improved Function Independent with HEP Discharge Summary: MS BROWN IS READY TO TRANSITION TO A HOME BASED PROGRAM. SHE HAS PURCHASED A PARAFFIN UNIT, YET HAS NOT UTILIZED YET. ABLE TO DEMO HEP WITH GOOD UNDERSTANDING. RECEPTIVE TO ED ON JT PROTECTION STRATEGIES. D/C OT SERVICES. Electronically Signed By: JESUS MARCELO OTR/L Reviewed/agree with student documentation: N/A Therapist: Please Sign and return to therapist, thank you for your referral.
== END 2023-11-10 13:45 | disposition home or self-care (01) ==
LOC: HO.OT 13:30
PROVIDERS: PCP Internal Medicine; Visit Provider Student in an Organized Health Care Education/Training Program
DX: M19.041 Primary osteoarthritis, right hand (principal); M19.042 Primary osteoarthritis, left hand
CPT/HCPCS: 97110; 97165

== ENCOUNTER 2023-11-13 10:23 | Outpatient (REF) | payer MEDICARE, OTHER, SELFPAY ==
[2023-11-13 10:40] LABS: MANUAL DIFF FLAG NO
[2023-11-13 11:05] LABS: Basophils Percent Auto 0.7 % (0-2); Eosinophils Absolute Auto 0.1 X10*3/uL (0.0-0.4); Eosinophils Percent Auto 1.1 % (0-4); Hematocrit 36.4 % (37.0-47.0); Hemoglobin 12.8 g/dl (12.0-16.0); Imm Gran Abs Auto 0.01 X10*3/uL (0.00-0.03); Imm Gran Pct Auto 0.2 % (0.0-0.4); Lymphocytes Absolute Auto 2.9 X10*3/uL (1.2-4.9); Lymphocytes Percent Auto 53.2 % (20-40); Mean Corpuscular HGB Conc 35.2 g/dl (31.0-35.0); Mean Corpuscular Hemoglobin 27.8 pg (27.0-33.0); Mean Platelet Volume 10.6 fL (9.4-12.3); Monocytes Absolute Auto 0.3 X10*3/uL (0.1-1.2); Monocytes Percent Auto 6.2 % (2-11); Neutrophils Absolute Auto 2.1 x10*3/uL (2.0-8.3); Neutrophils Percent Auto 38.6 % (45-73); Platelet Count 266 X10*3/uL (160-400); Red Blood Count 4.61 X10*6/uL (4.20-5.50); White Blood Count 5.5 X10*3/uL (4.8-10.8)
[2023-11-13 11:36] LABS: Alanine Aminotransferase 22 U/L (0-31); Albumin Level 4.2 g/dL (3.5-5.0); Alkaline Phosphatase 70 U/L (39-117); Anion Gap 16 (12-20); Aspartate Amino Transferase 23 U/L (5-31); Bilirubin Total 0.4 mg/dL (0.0-1.0); Blood Urea Nitrogen 13 mg/dL (9-16); Calcium 9.8 mg/dL (8.4-10.2); Carbon Dioxide 24 mmol/L (22-29); Chloride 107 mmol/L (96-108); Cholesterol 181 mg/dL (<200); Estimated Glomerular Filt Rate > 60; Glucose Fasting 131 mg/dL (60-99); HDL Cholesterol 55 mg/dL (>40); LDL Cholesterol Calculated 93 mg/dL (<100); Potassium 4.1 mmol/L (3.3-5.1); Sodium 143 mmol/L (135-145); Total Protein 7.5 g/dL (6.5-8.0); Triglycerides 165 mg/dL (<150)
== END 2023-11-13 10:24 | disposition home or self-care (01) ==
LOC: HO.LAB 10:23
PROVIDERS: PCP Internal Medicine; Visit Provider Internal Medicine Medical Oncology
DX: C34.32 Malignant neoplasm of lower lobe, left bronchus or lung (principal); I10 Essential (primary) hypertension; E11.69 Type 2 diabetes mellitus with other specified complication; E78.5 Hyperlipidemia, unspecified; E66.3 Overweight
CPT/HCPCS: 36415; 80053; 80061; 85025

== ENCOUNTER 2024-01-26 09:38 | Outpatient (REF) | payer MEDICARE, OTHER, SELFPAY ==
--- NOTE | ~2024-01-26 | MM_ITS ---
EXAMINATION: MM SCREENING DIGITAL BREAST TOMOSYNTHESIS, BILATERAL CLINICAL INFORMATION: Screening. Asymptomatic. COMPARISON: Mammography: This study is compared with prior exams dating back to 2019. TECHNIQUE: Digital breast tomosynthesis is performed in both the craniocaudal and mediolateral oblique views along with computer-aided detection (CAD). Synthesized 2D images are generated from the tomosynthesis. FINDINGS: There are scattered areas of fibroglandular density (ACR BI-RADS breast composition Category b). There are no significant masses, abnormal calcifications, or other abnormalities. MM/MM tomosynthesis screening BI IMPRESSION: No mammographic evidence of malignancy. ASSESSMENT: BI-RADS BI-RADS 1 - Negative RECOMMENDATION: Routine annual mammography screening. 1 year F/U This examination should not preclude the clinical evaluation of a suspicious palpable abnormality. This patient's information was entered into a reminder system with a target due date for their next mammogram. Electronically signed by: Елена Hernandez MD 02/22/2024 10:20 PM EDT
== END 2024-01-26 09:39 | disposition home or self-care (01) ==
LOC: HO.MAMMO 09:38
PROVIDERS: PCP Internal Medicine; Visit Provider Internal Medicine
DX: Z12.31 Encounter for screening mammogram for malignant neoplasm of breast (principal)
CPT/HCPCS: 77063; 77067

== ENCOUNTER → 2024-01-26 10:00 | Outpatient (BNV) | payer MEDICARE, OTHER, SELFPAY | PROVIDERS: PCP Internal Medicine; Visit Provider Radiology Diagnostic Radiology | DX: Z12.31 Encounter for screening mammogram for malignant neoplasm of breast (principal) | CPT/HCPCS: 77063; 77067 ==

== ENCOUNTER → 2024-03-15 13:32 | Outpatient (REF) | payer MEDICARE, OTHER, SELFPAY ==
--- NOTE | 2024-03-15 13:36 | CA_ITS ---
Transthoracic Echocardiogram Patient (Last, First, Middle): Julienne Candelario I Gender: Female Date of : 1945 Age: 79 Procedure Date: 03/15/2024 Procedure Type: Transthoracic Echocardiogram Location: OP Height: 162. cm Weight: 71.22 kg BSA: 1.76 m2 Heart Rate: 70 bpm BP: 172 / 85 mmHg Vacuum Caster: DIETER Referring MD: Danine Hunag MD Molder Offbearer: Shreyas Sparrow MD Symptoms: R01.0 BENIGN AND INNOCENT CARDIAC MURMURS ASSES MURMUR Study Quality: Fair ECG Rhythm: Sinus Conclusions: - 1. Normal LV ejection fraction of 65-70% with impaired relaxation filling pattern with mild LVH 2. Mild aortic stenosis 3. Normal RV systolic pressure 4. Upper limits of normal ascending aortic size 5. No gross pericardial effusion Findings Left Ventricle Normal left ventricular size and systolic function. There is mildly increased left ventricular wall thickness. The visually estimated ejection fraction is between 65-70%. Spectral Doppler is indicative of an impaired relaxation filling pattern. E/E prime ratio is between 8 and 15 consistent with indeterminate filling pressures. Right Ventricle Normal right ventricular cavity size and systolic function. Atria The left atrium is likely dilated. There is no evidence of interatrial shunt. The right atrium is normal in size. Aortic Valve There is moderate calcification of the aortic valve. There is moderate thickening of the aortic valve. There is mild aortic valve stenosis. There is no aortic valve regurgitation. Mitral Valve There is mild anterior and moderate posterior mitral leaflet thickening. There is moderate mitral annular calcification. There is trace mitral valve regurgitation. There is no mitral valve stenosis. Pulmonic Valve The pulmonic valve was not well visualized. Tricuspid Valve Likely normal tricuspid valve structure and function. There is trace tricuspid valve regurgitation. The right ventricular systolic pressure is normal. The right ventricular systolic pressure is 21 mmHg. Normal right atrial pressure. There is no evidence of pulmonary hypertension. Great Vessels All visible segments of the aorta are normal in size. The pulmonary artery was not well visualized. Small plaque is seen in the sino tubular ridge. Venous The inferior vena cava is normal in size and collapses greater than 50% with inspiration. Pericardium/Pleural There is no evidence of pericardial effusion. Prior Study Comparison Changes noted compared to prior study dated: 09/22/2022. Measurements 2D Linear Measurements IVSd: 1.30 0.6-0.9/0.6-1.0 cm LVIDd: 3.45 3.9-5.3/4.2-5.9 cm LVIDd Index: 1.96 2.4-3.2/2.2-3.1 cm/m2 LVIDs: 1.85 2.0-3.6 cm LVPWd: 1.24 0.7-1.1 cm LA Diam: 3.10 2.7-3.8/3.0-4.0 cm LAIDs Index: 1.76 1.5-2.3 cm/m2 LV Mass: 180.81 67-162/88-224 g LV Mass Index: 102.73 43-95/49-115 g/m2 LVOT Diam: 1.80 3.0+(-)1.3 cm 2D Systolic Function EF 4C: 71.00 >55% EF 2C: 70.30 >55% EF BiP: 70.40 >55% Mitral Valve MV VTI: 0.41 MV Pk Yeison: 1.36 MV Mn Yeison: 0.89 MV Pk Grad: 7.00 MV Mn Grad: 4.00 MV Pk E: 1.10 MV PK A: 1.28 MV Decel Time: 303.00 E/A: 0.90 E'Lateral: 5.87 E'Medial: 4.35 E/E' Med: 25.30 E/E' Lat: 18.70 PHT: 89.00 MVA PHT: 2.47 MVA Continuity: 1.47 Decel [place]: 3.63 Aortic Valve AoV Pk Yeison: 2.37 AoV Mn Yeison: 1.76 AoV VTI: 0.55 AoV Pk Grad: 22.00 Aov Mn Grad: 14.00 DAVEY Cont.VTI: 1.09 LVOT LVOT Pk Yeison: 1.03 LVOT Mn Yeison: 0.73 LVOT VTI: 0.24 LVOT Pk Grad: 4.00 LVOT Mn Grad: 2.00 LVOT Diam: 1.80 LVOT Area: 2.54 Diastolic Function MV Pk E: 1.10 MV Pk A: 1.28 E/A: 0.90 E'Medial: 4.35 E/E' Med: 25.30 E' Laterial: 5.87 E/E' Lat: 18.70 Right Ventricle TAPSE (mm): 20.70 TVS' Yeison: 9.46 Tricuspid Valve TR Pk Yeison: 2.14 TR Pk Grad: 18.00 RA Press: 3.00 RVSP: 21.00 Great Vessels Aorta Sinus of Valsalva: 3.10 2.0-3.5 cm Ao Asc: 3.60 2.1-3.4 cm Pulmonary Valve PV Pk Yeison: 0.98 Peak PV Grad: 4.00 Updated in Other Vendor System with Status of Final Shreyas Sparrow MD electronically signed on 03/16/2024 12:17:30 PM with status of Final
== END ==
LOC: HO.CARD 13:32
PROVIDERS: PCP Internal Medicine; Visit Provider Internal Medicine
DX: R01.0 Benign and innocent cardiac murmurs (principal)
CPT/HCPCS: 93306

== ENCOUNTER → 2024-03-15 13:36 | Outpatient (BNV) | payer MEDICARE, OTHER, SELFPAY | PROVIDERS: PCP Internal Medicine; Visit Provider Internal Medicine Cardiovascular Disease | DX: I35.0 Nonrheumatic aortic (valve) stenosis (principal) | CPT/HCPCS: 93306 ==

== ENCOUNTER 2024-06-14 10:41 | Outpatient (REF) | payer MEDICARE, OTHER, SELFPAY ==
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
--- OUTSIDE RECORDS SUMMARY | 2024-06-14 10:52 | XMS_ITS ---
Author Organization [facility] Address [address] [place] [address] Care Team Providers Care Drafting Instructor Name Role Phone Dannie Huang MD Primary Care Provider Radha Last Unavailable [phone] Param Syed [phone] REASON FOR VISIT sooner appt Encounters Encounter Location Date Provider Diagnosis [address] [address] 01/04/2024 Param Syed Plan Of Treatment Next Appt Details Provider Name:Radha little, 09/26/2024 03:45:00 PM, [address] [place] [address], [phone], Progress Notes * Jesse CANDELARIOaDOB:[birth year] (79 yo F)Acc No.[id number]:01/04/2024 Progress Note Patient:?Julienne CANDELARIO Provider:?Param Syed DPM :1945???Age:78 Y???Sex:Female D ate:01/04/2024 Address:[address] [place] [address], [id number] Pcp:Dannie Huang MD Subjective: * Chief Complaints: * ???1. Sooner appt. * Medical History:? Objective: * Vitals:? Assessment: Plan: * Treatment: * Images: * The named appointment provid er may or may not be the originator of this progress note, and it is not deemed complete until electronically signed by the appointment provider. Sign off status: Pending * Provider:?Param Syed DPM Date:? 024 Generated for Bryan lee/Emily/Sher on:?06/14/2024 10:52 AM EST
--- OUTSIDE RECORDS SUMMARY | 2024-06-14 10:52 | XMS_ITS ---
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 Role Phone Dannie Huang MD Primary Care Provider Radha Last Unavailable [phone] Allergies Allergen (clinical drug ingredient) Drug/Non Drug Allergy documented on EMR Reaction Allergy Type Onset Date Status niacin Niacin rash Drug Allergy Active Cortisone elevated BP/ elevated BS Drug Allergy Active REASON FOR VISIT At Risk Footcare Medications Medication SIG (Take, Route, Frequency, Duration) Notes Start Date End Date Status Vitamin D Not-Taking vitamin Not-Taking Lisinopril Not-Takin g PriLOSEC 20 MG Orally 2 Not-T aking Tums Not-Taking Montelukast Sodium N ot-Taking Zantac bid Not-Taking Calcium Not-Taking Valsartan Not-Taking Losartan Potassium 25 MG Orally Not-Taking Work Note . . . patient is disabled from work until December 15 2018 Not-Taking Extra Depth Diabetic Shoes with 3 Pair Custom heat-molded multi-density innersoles for 1 year Dx: 10/28/2020 Not-Taking Rhinocort Allergy 32 MCG/ACT 1 spray in each nostril Nasally Once a day Not-Taking Claritin Not-Taking Famotidine Not-Takin g Physical Therapy . . . 2-3x/week for 3-4 weeks 03/14/2019 Not-Taking Voltaren 1 % as directed Externally apply bid to left ankle for 30 days Not-Taking Voltaren 1 % as directed Externally Not-Taking prednisoLONE Not-Russell ing Night Splint AFO - L1930 as directed Not-Taking Hyoscyamine Sulfate 25mg 2x a day Active Antibiotic 7 day Not-Takin g Delsym Not-Taking ZyrTEC Not-Taking Clobetasol Emul Foam w/MoistCr Not-Taking Advair HFA Active Carvedilol 6.25 MG 1 tablet with food Orally Twice a day Active Extra Depth Diabetic Shoes with 3 Pair Custom heat-molded multi-density innersoles for 1 year Dx: Active Benzonatate 100 MG 1 capsule as needed Orally Three times a day Active Multivitamin Active LORazepam 1mg 1 during the day 1/2 at night Active Omeprazole 10 MG 1 capsule Orally twice a day Active Albuterol Sulfate HFA PRN Active Azelastine-Fluticason e PRN Active Pravastatin Sodium A ctive Tylenol 2 every 8 hour Activ e Kecia Active Extra Depth Diabetic Shoes with 3 Pair Custom heat-molded multi-density innersoles for 1 year Dx: Active Gabapentin Not-Takin g Tussin Active Mylanta Not-Taking Social History Tobacco Use: Social History Observation [...] Are you an other tobacco user? No Problems Problem Type SNOMED Code ICD Code Onset Dates Problem Status W/U Status Risk Notes Problem Polyneuropathy due to diabetes mellitus type I (476955850) Type 1 diabetes mellitus with diabetic polyneuropathy (E10.42) Active confirmed Vital Signs Height 5 ft 4 in in 06/03/2024 Weight 157 lbs 06/03/2024 BMI 26.95 kg/m2 06/03/2024 Blood pressure systolic 111 mm Hg 06/03/20 24 Blood pressure diastolic 67 mm Hg 024 Procedures Procedure Date Ordered Date Performed Result Body Sit e 44403-GKVTFNC NAIL, 6 OR MORE 06/03/2024 N/A 76914-BSHT SKIN LESIONS, OVER 4 06/03/2024 N/A Encounters Encounter Location Date Provider Diagnosis [facility] [place] [address] 06/03/2024 Radha Weir Type 2 diabetes mellitus with diabetic polyneuropathy E11.42 and Tinea unguium B35.1 Assessments Encounter Date Diagnosis (ICD Code) Assessment Notes Treatment Notes Treatment Clinical Notes Section Notes 06/03/2024 Type 2 diabetes mellitus with diabetic polyneuropathy (ICD-10 - E11.42) 06/03/2024 Tinea unguium (ICD-10 - B35.1) Plan Of Treatment Pending Test Test Name Order Date [id number]-AXEWSTY NAIL, 6 OR MORE 06/03/2024 59541-KDSO SKIN LESIONS, OVER 4 06/03/20 Next Appt Details Follow Up: 4 Months, Reason: Provider Name:Radha little, 09/26/2024 03:45:00 PM, [address] [place] [address], [place], [address], Procedure Notes * Category Sub-Category Detail Notes Debride Nail 6-10 Nail debridement Due to the cl inical pathology outlined in the exam findings, performance of this nail treatment is medically necessary as its management by an unskilled/untrained nonprofessional would put this patients foot and overall health at risk. Therefore, debridement to affected nail(s), as described in exam ( T1, T2, T3, T4, T6, T7, T8, T9) , was performed exclusively by the physician of record to reduce/remove overall nail length, girth, thickness, subungual debris, and necrotic tissue, by manual and/or electrical means through the use of a nail nipper and/or dremel-type external grinder, to a more viable healthy nail plate or bed tissue 6-10 nails in total. Silver nitrate was used for any petechial bleeding as necessary. Definitive antifungal treatment options, both pharmaceutical and surgical, have been reviewed and discussed with the patient. The patient solely prefers the use of intermittent/as needed professional debridement services for their nail condition and understands the need for additional periodic treatments to maintain effectiveness in symptomatic relief - Keratoma Treatment Parring or Cutting o f Benign Hyperkeratotic Lesion(s) (-57) More than 4 Lesions - Due to the at risk nature of the patients medical condition as documented in the exam findings, performance of this keratoderma treatment is medically necessary as its management by an unskilled/untrained nonprofessional would put this patients foot and overall health at risk. Therefore, the benign hyperkeratotic lesions, ( 6 ) in total, locations as stated and described in the exam ( sub 1st metatarsal head B/L, plantar heels B/L, medial TA, T5), were pared, and/or cut utilizing a sterile 15 blade, tissue nippers, and/or power dremel instrumentation by the physician of record - 85192 Progress Notes * Ahsan CANDELARIOB:[birth year] (79 yo F)Acc No.[id number]:06/03/2024 Progress Note Patient:?Julienne CANDELARIO Provider:?Radha Weir DPM :1945???Age:79 Y???Sex:Female D ate:06/03/2024 Address:[address] [place] [address] Pcp:Dannie Huang MD Subjective: * Chief Complaints: * ???At Risk Footcare * HPI: ???At Risk footcare:?Pt States Last PCP Visit:?Date?04/23/2024 * ROS:?General/Constitutional:?Nausea?denies.?Vomiting?denies.?Hunger Thirst?denies.?Loss appetite?denies.?Chills?denies.?Fatigue?denies.?Fever?denies.?Night Sweats?denies.?Unexplained weight loss?denies.?Unexplained weight gain?denies.?HEENTM:?Dentures?denies.?Dizziness?denies.?Glasses/contacts?admits.?Retinopathy?den ies.?Blurred/double vision?denies.?TMJ?denies.?Discharge/drainage?denies.?Implants?denies.?Sore throat?denies.?Dental implants?denies.?Hard of hearing ?denies.?Difficulty chewing/swallowing/speaking?denies.?Nose bleeds?denies.?Sore mouth?denies.?Respiratory:?On O xygen?denies.?Pneumonia/pleurisy?denies.?Bronchitis?denies.?Emphysema?denies.?Co ughing?admits.?Cough blood?denies.?Shortness of breath?denies.?Wheezing?denies.?Cardiovascular:?Pacemaker?denies.?MVP?denies.?WPW?denies.?CHF?denies.?Heart attack?denies.?Septal defect?denies.?Rapid beat?denies.?Chest pain ?denies.?Atrial Fib.?denies.?Murmur/Palpitations?denies.?Gastrointestinal:?Hemorrhoids?denies.?Stomach/Abdominal pain?denies.?Dark blood stool?denies.?Irritable bowel ?denies.?Constipation?denies.?Diarrhea?denies.?Hematology:?Swelling?denies.?Clots?denies.?Varicose Veins?denies.?Bruising?denies.?Bleeding problem?denies.?Genitourinary:?Blood urine?denies.?Frequent/Painfu/urination/bladder control?denies.?Kidney stones?denies.?Infection (UTI)?denies.?Nephropathy?denies.?sex trans dis (STD)?denies.?Prostate?denies.?Musculoskeletal:?Hammertoes?denies.?Bunions?admits.?Back Pain?admits.?Muscle Cramps/ Resting?denies.?Muscle cramps / walking?denies.?Generalized aches and pains?denies.?Weakness?denies.?Integ.:?Evangelista?denies.?Scars?denies.?Corns/calluses?denies.?Ingrown nails?admits.?Painful nails?denies.?Open Sores?denies.?Rashes?denies.?Neurologic:?Difficulty sleeping?denies.?Brain disorder?denies.?Numbness?denies.?Balance t rouble?denies.?Confusion?denies.?Fainting/blackouts?denies.?Tingling?denies.?Aj mors?denies.? * Medical History:? * Surgical History:?cholecyste ctomy 2005bladder suspension 1993tubal ligation 1985endoscopy 2013Lungbectomy 04/2023 * Hospitalization/Major Diagno stic Procedure:?[facility] for 2 day stay , for chest pain, high blood pressure and a head bump 03/2013[facility] [place]ell / concousin 01/07/17[facility] Care /PCP- Fell Broke Nose 05/21/21PCP [...] alcohol in the past year??No ?Points?0 ?Interpretation?Negative ???Miscellaneous:?Caffeine: no, decaff coffee/tea/soda. ?Children: yes. ?Exercise: yes, sometimes, PT. ?Marital status: . 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 * Medications:?TakingTussin Al legra Extra Depth Diabetic Shoes with 3 Pair Custom heat-molded multi-density innersoles for 1 year Dx: Tylenol , Notes to Pharmacist: 2 every 8 hourAlbuterol Sulfate HFA , Notes to Pharmacist: PRNAzelastine- Fluticasone , Notes to Pharmacist: PRNLORazepam 1mg , Notes to Pharmacist: 1 during the day 1/2 at nightOmeprazole 10 MG Capsule Delayed Release 1 capsule Orally twice a day Pravastatin Sodium Multivitamin Extra Depth Diabetic Shoes with 3 Pair Custom heat-molded multi-density innersoles for 1 year Dx: Benzonatate 100 MG Capsule 1 capsule as needed Orally Three times a day Advair HFA Carvedilol 6.25 MG Tablet 1 tablet with food Orally Twice a day Hyoscyamine Sulfate , Notes to Pharmacist: 25mg 2x a dayTaking Tussin Taking Kecia Taking Extra Depth Diabetic Shoes with 3 Pair Custom heat-molded multi-density innersoles for 1 year Dx: Taking Tylenol , Notes to Pharmacist: 2 every 8 hourTaking Albuterol Sulfate HFA , Notes to Pharmacist: PRNTaking Azelastine-Fluticasone , Notes to Pharmacist: PRNTaking LORazepam 1mg , Notes to Pharmacist: 1 during the day 1/2 at nightTaking Omeprazole 10 MG Capsule Delayed Release 1 capsule Orally twice a day Taking Pravastatin Sodium Taking Multivitamin Taking Extra Depth Diabetic Shoes with 3 Pair Custom heat-molded multi-density innersoles for 1 year Dx: Taking Benzonatate 100 MG Capsule 1 capsule as needed Orally Three times a day Taking Advair HFA Taking Carvedilol 6.25 MG Tablet 1 tablet with food Orally Twice a day Taking Hyoscyamine Sulfate , Notes to Pharmacist: 25mg 2x a dayNot-Taking/PRNZyrTEC Clobetasol Emul Foam w/MoistCr Antibiotic , Notes to Pharmacist: 7 dayDelsym prednisoLONE Night Splint AFO - L1930 as directed Voltaren 1 % Gel as directed Externally apply bid to left ankle Voltaren 1 % Gel as directed Externally Physical Therapy . . . . 2-3x/week Work Note . . . . patient is disabled from work until December 15 2018 Extra Depth Diabetic Shoes with 3 Pair Custom heat-molded multi-density innersoles for 1 year Dx: Claritin Famotidine Rhinocort Allergy 32 MCG/ACT Suspension 1 spray in each nostril Nasally Once a day Montelukast Sodium Valsartan Losartan Potassium 25 MG Tablet Orally Zantac bid Calcium Lisinopril Vitamin D vitamin PriLOSEC 20 MG Capsule Delayed Release Orally 2 Tums Mylanta Gabapentin Medication List reviewed and reconciled with the patientNot-Taking/PRN ZyrTEC Not-Taking/PRN Clobetasol Emul Foam w/MoistCr Not-Taking/PRN Antibiotic , Notes to Pharmacist: 7 dayNot-Taking/PRN Delsym Not-Taking/PRN prednisoLONE Not-Taking/PRN Night Splint AFO - L1930 as directed Not-Taking/PRN Voltaren 1 % Gel as directed Externally apply bid to left ankle Not-Taking/PRN Voltaren 1 % Gel as directed Externally Not-Taking/PRN Physical Therapy . . . . 2-3x/week Not-Taking/PRN Work Note . . . . patient is disabled from work until December 15 2018 Not-Taking/PRN Extra Depth Diabetic Shoes with 3 Pair Custom heat-molded multi-density innersoles for 1 year Dx: Not-Taking/PRN Claritin Not-Taking/PRN Famotidine Not-Taking/PRN Rhinocort Allergy 32 MCG/ACT Suspension 1 spray in each nostril Nasally Once a day Not-Taking/PRN Montelukast Sodium Not-Taking/PRN Valsartan Not-Taking/PRN Losartan Potassium 25 MG Tablet Orally Not-Taking/PRN Zantac bid Not-Taking/PRN Calcium Not-Taking/PRN Lisinopril Not-Taking/PRN Vitamin D Not-Taking/PRN vitamin Not-Taking/PRN PriLOSEC 20 MG Capsule Delayed Release Orally 2 Not-Taking/PRN Tums Not-Taking/PRN Mylanta Not- Taking/PRN Gabapentin Medication List reviewed and reconciled with the patient * Allergies:?Niacin: rashCorti sone: elevated BP/ elevated BSyes[Allergies Verified] Objective: * Vitals:?Ht: 5 ft 4 in, Wt: 1 57, BMI: 26.95, Shoe size: 7.5W, BP: 111/67 mm Hg, BS: 129, Wt-k.21 kg. * ???Past Orders: ???Lab:HEMOGLOBIN A1C (GLYCO HEMOGLOBIN) (Order Date - 04/11/2024) (Collection Date & Time - 04/11/2024 08:53 AM) ? Value Reference Range ?TOTAL HEMOGLOBIN (HGBA1C) 6.3 * Examination: ???Ophthalmology Referral: ?DIABETES EYE EXAM?Neurological: ?SENSORY:? Neurological exam demonstrates, reduced light touch sensation, reduced sharp/dull pin prick discrimination , B/L, 5.07 monofilament test performed at plantar aspects of 5 varied sites per foot shows sensation, reduced , B/L.?Nails: ?NAILS are:?Elongated, overgrown, dystrophic, lytic, greater than 3mm thick, discolored and friable with crumbly malodorous subungual debris, with dull to no pain on palpation due to neuropathy, T1, T2, T3, T4,T6, T7, T8, T9.?Dermatologic: ?SKIN FINDINGS:?Skin exam reveals Keratotic lesion(s) located at plantar heels B/L, sub 1st metatarsal head B/L, medial TA, T5.?Vascular: ?DP PULSES (B):??2/4, B/L.?PT PULSES (B):? 1/4, B/L.?CAPILLARY FILL TIME:?3 secs. per digit, b/l.?TROPHIC CONDITION-TEXTURE/ELASTICITY/TURGOR/HAIR GROWTH (B):?decreased, B/L.?TEMPERTURE GRADIENT (C):?decreased, B/L.?EDEMA (C):? 1/4, B/L, Ankle(s).?CLAUDICATION (C):?negative, b/l .?REST PAIN:?negative.?CLUBBING:?absent.?Orthopedic: ?MUSCLE STRENGTH:?5/5 all groups in a symmetrical fashion, B/L.?General Examination: ?GENERAL APPEARANCE:?Reveals a pleasant, alert, well nourished, well- developed, well hydrated individual, who demonstrates proper attention to hygiene/body habitus, and is in no acute distress, Pt serves as own historian for office visit today.?ORIENTED:?person, place, and time.? Assessment: * Assessment: 1.?Type 2 diabetes mellitus with diabetic polyneuropathy - E11.42 (Primary)???2.?Tinea unguium - B35.1??? Plan: * Treatment: * Procedures:?Debride Nail 6-10:?Nail debridement?Due to the clinical pathology outlined in the exam findings, performance of this nail treatment is medically necessary as its management by an unskilled/untrained nonprofessional would put this patients foot and overall health at risk. Therefore, debridement to affected nail(s), as described in exam ( ?T1, T2, T3, T4,? T6, T7, T8, T9)?, was performed exclusively by the physician of record to reduce/remove overall nail length, girth, thickness, subungual debris, and necrotic tissue, by manual and/or electrical means through the use of a nail nipper and/or dremel-type external grinder, to a more viable healthy nail plate or bed tissue 6-10 nails in total. Silver nitrate was used for any petechial bleeding as necessary. Definitive antifungal treatment options, both pharmaceutical and surgical, have been reviewed and discussed with the patient. The patient solely prefers the use of intermittent/as needed professional debridement services for their nail condition and understands the need for additional periodic treatments to maintain effectiveness in symptomatic relief - 47990.?Keratoma Treatment:?Parring or Cutting of Benign Hyperkeratotic Lesion(s)?(-57) More than 4 Lesions - Due to the at risk nature of the patients medical condition as documented in the exam findings, performance of this keratoderma treatment is medically necessary as its management by an unskilled/untrained nonprofessional would put this patients foot and overall health at risk. Therefore, the benign hyperkeratotic lesions, ( 6 ) in total, locations as stated and described in the exam ( sub 1st metatarsal head B/L, plantar heels B/L, medial TA, T5), were pared, and/or cut utilizing a sterile 15 blade, tissue nippers, and/or power dremel instrumentation by the physician of record - 62488.? * Procedure Codes:?20683 DEBRI DE NAIL, 6 OR MORE, Modifiers: XS 60809 TRIM SKIN LESIONS, OVER 4, Modifiers: XS * Follow Up:?4 Months * Images: * Sign off status: Completed true * Provider:?Radha Weir DPM Date:? Generated for Bryan lee/Emily/Evysmitting on:?06/14/2024 10:52 AM EST History and Physical Notes * HPI (History of Present Illness) Category Sub-Category Detail Notes Category Not es At Risk footcare Pt States Last PCP Visit: Date: 4 Examination Category Sub-Category Detail Notes Category Not es Neurological SENSORY: Neurological exa m demonstrates, reduced light touch sensation, reduced sharp/dull pin prick discrimination , B/L, 5.07 monofilament test performed at plantar aspects of 5 varied sites per foot shows sensation, reduced , B/L Dermatologic SKIN FINDINGS: Skin exam reveal s Keratotic lesion(s) located at plantar heels B/L, sub 1st metatarsal head B/L, medial TA, T5 Orthopedic MUSCLE STRENGTH: 5/5 all groups in a symmetrical fashion, B/L General Examination GENERAL APPEARANCE: Reveals a pleasant, alert, well nourished, well-developed, well hydrated individual, who demonstrates proper attention to hygiene/body habitus, and is in no acute distress, Pt serves as own historian for office visit today ORIENTED: person, place, and t al Ophthalmology Referral DIABETES EYE EXAM Procedure Perform ed:: Yes ?Date of Exam Performed: 06/05/2022 Findings of Diabetic Eye Exam:: no retin opathy Vascular DP PULSES (B): 2/4, B/L PT PULSES (B): 1/4, B/L CAPILLARY FILL TIME: 3 secs. per digit, b/l TEMPERTURE GRADIENT (C): decreased, B/L TROPHIC CONDITION-TEXTURE/ELASTICITY/TUR GOR/HAIR GROWTH (B): decreased, B/L EDEMA (C): 1/4, B/L, Ankle(s) CLUBBING: absent CLAUDICATION (C): negative, b/l REST PAIN: negative Nails NAILS are: Elongated, overg rown, dystrophic, lytic, greater than 3mm thick, discolored and friable with crumbly malodorous subungual debris, with dull to no pain on palpation due to neuropathy, T1, T2, T3, T4,T6, T7, T8, T9
--- OUTSIDE RECORDS SUMMARY | 2024-06-14 10:53 | XMS_ITS ---
Author Organization Fabrice Crain III, MD Address [address] [address] Care Team Providers Care Director Of Restaurant Name Role Phone Dannie Huang MD Primary Care Provider Fabrice Butcher Unavailable [phone] Allergies Allergen (clinical drug ingredient) Drug/Non Drug [...] 100 MG TAKE 1 CAPSULE BY [facility] EVERY 8 HOURS NEEDED FOR COUGH Oral Active Albuterol Sulfate HFA 108 (90 Base) MCG/ACT 1 puff as needed Inhalation every 4 hrs Active Zoryve 0.3 % 1 application Tower Erector ally Once a day Active LORazepam 1 [...] Problem Status W/U Status Risk Notes Problem 421318216 Other obesity (E66.8) Active confirmed Her body [...] Date Provider Diagnosis Fabrice Crain III, MD [address] [place] [address] [place] [address] 12/01/2023 Fabrice Crain Malignant neoplasm o f [...] 100 MG TAKE 1 CAPSULE BY [facility] EVERY 8 HOURS NEEDED FOR COUGH Oral Albuterol Sulfate HFA 108 (9 0 Base) MCG/ACT 1 puff as needed Inhalation every 4 hrs Zoryve 0.3 % 1 application Tower Erector ally Once a day LORazepam 1 MG [...] 4 Months, Reason: OV Provider Name:Fabrice Crain, 10/04/2024 11:00:00 AM, [address] [place] [address] [address], [place], [address], Progress Notes * JUVENTINO CANDELARIO:[birth year] (78 yo F)Acc No.[id number]:12/01/2023 Progress Notes Patient:?TREY CANDELARIO Provider:?Farbice Crain MD :1945???Age:78 Y???Sex:Female D ate:12/01/2023 Address:[address] [place] [address] [id number] Pcp:Dannie Huang MD Subjective: * Chief Complaints: * ???Non-small cell carcinoma left lower lobeHypertensionDiabetesHyperlipidemiaOsteoporosis. * HPI: ???COVID-19 Screening:? She returns in follow-up of several medical [...] Her fasting glucose has been below 150. ?Questions?Have you experienced fever, chills, cough, sore throat, shortness of breath, difficulty breathing, muscle aches, loss of taste or smell??No ?Have you been exposed to the virus within the last 10 days??No ?Have you travelled internationally in the last 10 days??No ?Have you been exposed to COVID-19 in the past??No * ROS:?General/Constitutional:?pain?Left chest wall incision, otherwise only normal aches and pains.?Chills?denies.?Fatigue?admits.?Fever?denies.?ENT:?Decreased hearing?mild.?Respiratory:?Cough?denies.?Cardiovascular:?Chest pain with exertion?With exertion or lifting.?Dyspnea on exertion?denies.?Shortness of breath?denies.?Gastrointestinal:?Constipation?occasional.?Decreased appetite?denies.?Diarrhea?denies.?Heartburn?denies.?Nausea?denies.?Rectal bleeding?denies.?Vomiting?denies.?Hematology:?bruising?denies.?petechiae?denies.?Swollen glands?none have been noted.?Genitourinary:?Frequent urination?at night.?Musculoskeletal:?Muscle aches?denies.?Painful joints?denies.?Sciatica?denies.?Weakness?denies.?Skin:?Itching?denies.?Rash?denies.?Skin lesion(s)?denies.?Neurologic:?Difficulty speaking?denies.?Dizziness?denies.?Headache?denies.?Low back pain?denies.?Psychiatric:?Depressed mood?denies.? * Medical History:? * Surgical History:?Tubal liga tion 1986choleycystectomy 2006Bladder suspention 1993colonoscopy, Dr. Blanchard 2014Lung surgery, Left lower lobe 04/07/2023 * Hospitalization/Major Diagno stic Procedure:?Denies Past Hospitalization * Family History:?Father: dece ased 62 yrs, cad, mi, diagnosed with CVD.?Mother: 6 yrs, diabetes, diagnosed with DM.?3 son(s) , 1 daughter(s) . .? Her mother was diabetic. Her daughter has rheumatoid arthritis. Her father had coronary artery disease and of a myocardial infarction. Her children are healthy and well. * Social History:?Tobacco Use:?Tobacco Use/Smoking?Patient is a?former smoker ?How long has it been since you last smoked??> 10 years ?Additional Findings: Tobacco Non-User?Ex-cigarette smoker ???She lives at home with her and does not smoke or drink. She is not employed at the current time. * Medications:?TakingZoryve 0. 3 % Cream 1 application Externally Once a [...] reviewed and reconciled with the patient * Allergies:?NiacinLactoseCort isone: elevated BP and Glucoseno[Allergies Verified] Objective: * Vitals:?Ht: 60, Wt:158, BMI: 30.85, BP:137/66, HR:74, Temp:97.8, Ht-cm: 152.4, Wt-k.67. * ???Past Orders: Lab:Lipid Panel * Order Date 11/13/2023 01/26/2022 01/22/2021 Triglycerides 165?H (Ref Range: <150 mg/dL) 165 (Ref Range: mg/dL) 264 (Ref Range: mg/dL) Cholesterol 181 (Ref Range: <200 mg/dL) 197 (Ref Range: mg/dL) 178 (Ref Range: mg/dL) LDL Cholesterol Calculated 93 (Ref Range: <100 mg/dL) 107 (Ref Range: mg/dl) 74 (Ref Range: mg/dl) HDL Cholesterol 55 (Ref Range: >40 mg/dL) 57 (Ref Range: mg/dL) 52 (Ref Range: mg/dL) * Lab:Comprehensive [place]. Pane l Fast * Order Date 11/13/2023 [...] 60 > 60 > 60 Glucose Fasting 131?H (Ref Range: 60-99 mg/dL) 129?H (Ref Range: 60-99 mg/dL) 136?H (Ref Range: 60-99 mg/dL) Calcium 9.8 (Ref [...] g/dl) 12.1 (Ref Range: 12.0-16.0 g/dl) Hematocrit 36.4?L (Ref Range: 37.0-47.0 %) 35.3?L (Ref Range: 37.0-47.0 %) 35.3?L (Ref Range: 37.0-47.0 %) Mean Corpuscular Volume 79.0?L (Ref Range: 80.0-98.0 fL) 78.4?L (Ref Range: 80.0-98.0 fL) 79.0?L (Ref Range: 80.0-98.0 fL) Mean Corpuscular Hemoglobin 27.8 (Ref Range: 27.0-33.0 pg) 27.3 (Ref Range: 27.0-33.0 pg) 27.1 (Ref Range: 27.0-33.0 pg) Mean Corpuscular HGB Conc 35.2?H (Ref Range: 31.0-35.0 g/dl) 34.8 (Ref Range: [...] (Ref Range: 9.4-12.3 fL) Neutrophils Percent Auto 38.6?L (Ref Range: 45-73 %) 43.5?L (Ref Range: 45-73 %) 34.3?L (Ref Range: 45-73 %) Imm Gran Pct Auto 0.2 (Ref Range: 0.0-0.4 %) 0.2 (Ref Range: 0.0-0.4 %) 0.2 (Ref Range: 0.0-0.4 %) Lymphocytes Percent Auto 53.2?H (Ref Range: 20-40 %) 48.4?H (Ref Range: 20-40 %) 55.3?H (Ref Range: 20-40 %) Monocytes Percent Auto [...] 2.0-8.3 x10*3/uL) 2.4 (Ref Range: 2.0-8.3 x10*3/uL) 1.9?L (Ref Range: 2.0-8.3 x10*3/uL) Imm Gran Abs [...] 0.000 (Ref Range: 0.0-0.012 X10*3/uL) * Examination: ???General Examination: ?GENERAL APPEARANCE:?pleasant, well nourished, well developed, in no acute distress, calm and relaxed , obese, elderly woman.?HEAD:?atraumatic, normocephalic.?EYES:?eomi, perrla, anicteric, conjugate.?EARS:?normal.?NOSE:?septum intact.?ORAL CAVITY:?normal, unremarkable.?NECK/THYROID:?no jugular venous distention, no carotid bruit, thyroid normal.?LYMPH NODES:?no enlarged lymph nodes,spleen normal.?SKIN:?no suspicious lesions, anicteric.?HEART:?no clicks, gallops, murmurs, or rubs, regular rhythm, S1, S2 normal, no s3, or vascular bruits.?LUNGS:?clear to auscultation, Left thoracic incisions well healed but painful to compression of chest wall.?BREASTS:??no masses palpable bilaterally.?ABDOMEN:?bowel sounds normal, no ascites, no organomegaly, no mass , centripital obesity.?RECTAL EXAM:?not examined.?MUSCULOSKELETAL:?extremities unremarkable, no clubbing, cyanosis or edema.?PERIPHERAL PULSES:?normal.?NEUROLOGIC:?alert and oriented, cranial nerves 2-12 grossly intact, deep tendon reflexes 2+ symmetrical, motor strength normal upper and lower extremities, sensory exam intact.?PSYCH:?alert, oriented.? Assessment: * Assessment: 1.?Malignant neoplasm of low er lobe of left lung - C34.32 (Primary), There is no sign of recurrent disease at this time. Incisions are healed and the pain is slowly resolving?2.?Essential hypertension - I10, Her blood pressure is now 140/70 and no change in her regimen as necessary.?3.?Fibromyalgia - M79.7, She has occasional low-grade abdominal discomfort.?4.?Type 2 diabetes mellitus with other specified complication - E11.69, She will continue on current therapy. The fasting blood sugar is 94.?5.?Hyperlipidemia, unspecified - E78.5, Her lipids are well controlled and she will continue on her current regimen.?6.?Age-related osteoporosis without current pathological fracture - M81.0, She is asymptomatic at this time.?7.?Gastroesophageal reflux disease without esophagitis - K21.9, She has occasional reflux, well-controlled medication and no other therapy is necessary at this time.?8.?Former smoker - Z87.891, She seems highly motivated not to smoke and we discussed strategies for prevention of relapse in times of stress and illness.?9.?Other obesity - E66.8, Her body mass index is 30. We have discussed her weight loss strategy. We discussed diet and nutrition. We made a plan to lose weight at a rate of one half of a pound per week.? Plan: * Treatment: * Procedure Codes:? * Preventive Medicine:? ??Counseling:?Care goal follow-up plan:?Counseling for abnormal BMI given?Yes ?Above Normal BMI Follow-up?Dietary management education, guidance, and counseling, Dietary needs education, Exercise promotion: strength training, Exercise promotion: stretching, Feeding regime, Giving encouragement to exercise, Lifestyle education regarding diet, Nutrition / feeding management, Nutrition therapy, Prescribed activity/exercise education, Prescribed diet education, Prescribed dietary intake, Special diet education, Weight monitoring , Intervention, Order not done: Medical or Other reason not done ?Smoking/Tobacco Use?Patient counseled on the dangers of tobacco use and urged to quit.?12/01/2023 ??DM Care Plan:?Patient Lifestyle Goals?Patient wants to be able to manage diabetes without too much effort.?Treatment Goals?Blood Sugars less than < 115, HbA1C < 7.0.?Barriers?no barriers.?Self-Managment Goals?Work on weight loss, with a goal of losing 1 lb per week.? * Follow Up:?4 Months (Reason: OV) * Images: * Sign off status: Completed true * Provider:?Fabrice Crain MD Date:?11/04 Generated for Bryan lee/Emily/Reneaitting on:?06/14/2024 10:52 AM EST History and Physical Notes * HPI (History of Present Illness) Category Sub-Category Detail Notes COVID-19 Screening Questions Have you had any new onset fever, chills, cough, congestion, sore throat, shortness of breath, muscle aches?: No Have you been exposed to the virus with n the last 10 days?: No Have you travelled internationally in [facility] last 10 days?: No Have you [...]
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
--- OUTSIDE RECORDS SUMMARY | 2024-06-14 10:53 | XMS_ITS | Patient Health Record ---
Author Organization Fabrice Crain III, MD Address [address] [place] [address] Care Team Providers Care Arcade Game Technician Name Role Phone Dannie Huang MD Primary Care Provider Fabrice Butcher Unavailable [phone] Allergies Allergen (clinical drug ingredient) Drug/Non Drug Allergy documented on EMR Reaction Allergy Type Onset Date Status cortisone Cortisone elevated BP and Glucose Drug Allergy Active niacin Niacin Unknown Drug Allergy Active Lactose Unknown Drug Allergy Active Results Component Value Reference Range Notes Complete Blood Count Auto Di ff Reviewed date:11/14/2023 05:01:48 PM Interpretation: Performing Lab:[facility], [address] [place] [phone] Notes/Report: White Blood Count 5.5 4.8-10.8 X10*3/uL Red Blood Count 4.61 4.20-5.50 X10*6/uL Hemoglobin 12.8 12.0-16.0 g/dl Hematocrit 36.4 37.0-47.0 % Mean Corpuscular Volume 79.0 80.0-98.0 fL Mean Corpuscular Hemoglobin 27.8 27.0-33.0 pg Mean Corpuscular HGB Conc 35.2 31.0-35.0 g/dl Red Cell Distribution Width 15.0 11.0-16.0 % Platelet Count 266 160-400 X10*3/uL Mean Platelet Volume 10.6 9.4-12.3 fL Neutrophils Percent Auto 38.6 45-73 % Imm Gran Pct Auto 0.2 0.0-0.4 % Lymphocytes Percent Auto 53.2 20-40 % Monocytes Percent Auto 6.2 2-11 % Eosinophils Percent Auto 1.1 0-4 % Basophils Percent Auto 0.7 0-2 % NRBC Pct Auto 0.0 0.0-0.2 /100WBC Neutrophils Absolute Auto 2.1 2.0-8.3 x10*3/u L Imm Gran Abs Auto 0.01 0.00-0.03 X10*3/uL Lymphocytes Absolute Auto 2.9 1.2-4.9 X10*3/u L Monocytes Absolute Auto 0.3 0.1-1.2 X10*3/uL Eosinophils Absolute Auto 0.1 0.0-0.4 X10*3/u L Basophils Absolute Auto 0.0 0.0-0.2 X10*3/uL NRBC Abs Auto 0.000 0.0-0.012 X10*3/uL Comprehensive Milo. Panel Fa st Reviewed date:11/14/2023 05:01:48 PM Interpretation: Performing Lab:[facility], [address] [place] [phone] Notes/Report: Sodium 143 135-145 mmol/L Potassium 4.1 3.3-5.1 mmol/L Chloride 107 96-108 mmol/L Carbon Dioxide 24 22-29 mmol/L Anion Gap 16 12-20 Blood Urea Nitrogen 13 9-16 mg/dL Creatinine 0.66 0.5-1.4 mg/dL Estimated Glomerular Filt Rate > 60 NOTE: For -[place] individuals, multiply the result by 1.210. Chronic Kidney Disease: Estimated GFR < 60 mL/min/1.73m2 Severe Kidney Disease: Estimated GFR < 15 mL/min/1.73m2 Glucose Fasting 131 60-99 mg/dL A fasting glucose of 126 mg/dl or greater on more than one occasion is considered diagnostic of diabetes. Calcium 9.8 8.4-10.2 mg/dL Bilirubin Total 0.4 0.0-1.0 mg/dL Aspartate Amino Transferase 23 5-31 U/L Alanine Aminotransferase 22 0-31 U/L Total Protein 7.5 6.5-8.0 g/dL Albumin Level 4.2 3.5-5.0 g/dL Alkaline Phosphatase 70 39-117 U/L Lipid Panel Reviewed date:11/14/2023 05:01:48 PM Interpretation: Performing Lab:[facility], [address] [place] [phone] Notes/Report: Triglycerides 165 <150 mg/dL Desirable Triglyceride: less than 150 mg/dL Borderline High Triglyceride 150-199 mg/dL High Triglyceride: 200-499 mg/dL Very High Triglyceride: greater than or equal to 5OO mg/dL Cholesterol 181 <200 mg/dL Desirable Cholesterol: less than 200 mg/dL Borderline High Cholesterol: 200-239 mg/dL High Cholesterol: greater than 239 mg/dL LDL Cholesterol Calculated 93 <100 mg/dL Desirable LDL: less than 100 mg/dL Near Optimal/Above Optimal LDL: 110-129 mg/dL Borderline High LDL: 130-159 mg/dL High LDL: 160-189 mg/dL Very High LDL: greater than or equal to 190 mg/dL HDL Cholesterol 55 >40 mg/dL Desirable HDL: greater than 40 mg/dL Note: This HDL assay may give artificially low results in patients with liver disease. Reason For Referral No Information Medications Medication SIG (Take, Route, Frequency, Duration) Notes Start Date End Date Status Claritin 10 MG 1 tablet Orally Once a day Active Fluticasone Furoate 100 MCG/ACT 1 puff Inhalation Once a day Active Zoryve 0.3 % 1 application Precision Lens Grinder Apprentice ally Once a day Active Benzonatate 100 MG TAKE 1 CAPSULE BY [facility] EVERY 8 HOURS NEEDED FOR COUGH Oral Active Albuterol Sulfate HFA 108 (90 Base) MCG/ACT 1 puff as needed Inhalation every 4 hrs Active Pravastatin Sodium 80 MG 1 tablet Orally Once a day Active Carvedilol 6.25 MG Orally Twice a day Active LORazepam 1 MG 1 1/2 tablet at bedt al as needed Oral Twice a day Active Azelastine-Fluticasone 137-50 MCG/ACT 1 spray in each nostril Nasally Twice a day Active Omeprazole 20 MG 1 capsule 30 minutes before morning meal Orally Twice a day Active hydrALAZINE HCl 25 MG 1 tablet with food Orally twice a day Active Social History Tobacco Use: [...] Additional Findings: Tobacco Non-User Ex-cigaret te smoker Alcohol Screen Question Answer Notes Did you have a drink containing alcohol in the p ast year? No Points 0 Interpretation Negative Problems Problem Type SNOMED Code ICD Code Onset Dates Problem Status W/U Status Risk Notes Problem 0445788 Former smoker (Z87.891) Active confirmed She seems highly motivated not to smoke and we discussed strategies for prevention of relapse in times of stress and illness. Problem 626800026 Fibromyalgia (M79.7) Active confirmed She has occasional low-grade abdominal discomfort. Problem 854480863645 Type 2 diabetes mellitus with other specified complication (E11.69) Active confirmed She will continue on current therapy. Her fasting glucose levels have been under 150. She has been compliant with her medication. Problem 201946287 Other obesity (E66.8) Active confirmed Her body mass index is 30. We have discussed her weight loss strategy. We discussed diet and nutrition. We made a plan to lose weight at a rate of one half of a pound per week. Problem 80294953 Hyperlipidemia, unspecified (E78.5) Active confirmed Her lipids are well controlled and she will continue on her current regimen. Problem 42120356 Age-related osteoporosis without current pathological fracture (M81.0) Active confirmed She is asymptomatic at this time. Problem 88712084 Essential hypertension (I10) Active confirmed Her blood pressure is controlled and no change in her regimen as necessary. Problem 146057196 Gastroesophageal reflux disease without esophagitis (K21.9) Active confirmed She has occasional reflux, well-controll ed medication and no other therapy is necessary at this time. Problem Anemia (380561322) Anemia, unspecified type (D64.9) Active confirmed She has a mild microcytic anemia with a ferritin over 100. The microcytosis is new. She'll be followed carefully. It does not require treatment at this time. 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 Vital Signs Heart Rate 79 /min 04/05/2024 Temperature 97.4 degrees Fahrenheit 04/05/2024 Blood pressure diastolic 77 mm Hg 04/05/2024 Height 60 in 04/05/2024 Blood pressure systolic 138 mm Hg 04/05/2024 Weight 161 lbs 04/05/2024 BMI 31.44 kg/m2 04/05/2024 Encounters Encounter Location Date Provider Diagnosis Fabrice Crain III, MD [address] [place] [address] [place] [phone] 06/26/2023 Fabrice Brandtrne Malignant neoplasm o f lower lobe of left lung C34.32 ; Essential hypertension I10 ; Fibromyalgia M79.7 ; Type 2 diabetes mellitus with other specified complication E11.69 ; Hyperlipidemia, unspecified E78.5 ; Age-related osteoporosis without current pathological fracture M81.0 ; Overweight E66.3 and Former smoker Z87.891 Fabrice Crain III, MD [address] [place] [address] [place] [phone] 07/28/2023 Fabrice Brandtrne Malignant neoplasm o f lower lobe of left lung C34.32 ; Essential hypertension I10 ; Fibromyalgia M79.7 ; Type 2 diabetes mellitus with other specified complication E11.69 ; Hyperlipidemia, unspecified E78.5 ; Age-related osteoporosis without current pathological fracture M81.0 ; Former smoker Z87.891 ; Overweight E66.3 and Gastroesophageal reflux disease without esophagitis K21.9 Fabrice Crain III, MD [address] [place] [address] [place] [phone] 12/01/2023 Fabrice Brandtrne Malignant neoplasm o f lower lobe of left lung C34.32 ; Essential hypertension I10 ; Fibromyalgia M79.7 ; Type 2 diabetes mellitus with other specified complication E11.69 ; Hyperlipidemia, unspecified E78.5 ; Age-related osteoporosis without current pathological fracture M81.0 ; Gastroesophageal reflux disease without esophagitis K21.9 ; Former smoker Z87.891 and Other obesity E66.8 Fabrice Crain III, MD [address] [place] [address] [place] [phone] 04/05/2024 Fabrice Brandtrne Malignant neoplasm o f lower lobe of left lung C34.32 ; Former smoker Z87.891 ; Gastroesophageal reflux disease without esophagitis K21.9 ; Essential hypertension I10 ; Type 2 diabetes mellitus with other specified complication E11.69 ; Hyperlipidemia, unspecified E78.5 and Age-related osteoporosis without current pathological fracture M81.0 Fabrice Crain III, MD [address] [place] [address] [place] [address] 10/11/2023 Fabrice Crain Malignant neoplasm o f lower lobe of left lung C34.32 Fabrice Crain III, MD [address] [place] [address] [place] [phone] 10/16/2023 Fabrice Crain Assessments Encounter Date Diagnosis (ICD Code) Assessment Notes Treat ment Notes Treatment Clinical Notes 06/26/2023 Essential hypertensi on (ICD-10 - I10) Her blood pressure is now 140/70 and no change in her regimen as necessary. 06/26/2023 Malignant neoplasm o f lower lobe of left lung (ICD-10 - C34.32) She is healing well. She declines pain medication. Observation will continue at this point. 07/28/2023 Essential hypertensi on (ICD-10 - I10) Her blood pressure is now 140/70 and no change in her regimen as necessary. 07/28/2023 Malignant neoplasm o f lower lobe of left lung (ICD-10 - C34.32) She is healing well.I have offered her tramadol. Observation will continue at this point. 12/01/2023 Essential hypertensi on (ICD-10 - I10) Her blood pressure is now 140/70 and no change in her regimen as necessary. 12/01/2023 Malignant neoplasm o f lower lobe of left lung (ICD-10 - C34.32) There is no sign of recurrent disease at this time. Incisions are healed and the pain is slowly resolving 04/05/2024 Former smoker (ICD-1 0 - Z87.891) She seems highly motivated not to smoke and we discussed strategies for prevention of relapse in times of stress and illness. 04/05/2024 Malignant neoplasm o f lower lobe of left lung (ICD-10 - C34.32) There is no sign of recurrent disease at this time. Incisions are healed and the pain is slowly resolving 06/26/2023 Fibromyalgia (ICD-10 - M79.7) She has occasional low-grade abdominal discomfort. 07/28/2023 Fibromyalgia (ICD-10 - M79.7) She has occasional low-grade abdominal discomfort. 12/01/2023 Fibromyalgia (ICD-10 - M79.7) She has occasional low-grade abdominal discomfort. 04/05/2024 Gastroesophageal reflux disease without esophagitis (ICD-10 - K21.9) She has occasional reflux, well-controlled medication and no other therapy is necessary at this time. 10/11/2023 Malignant neoplasm o f lower lobe of left lung (ICD-10 - C34.32) 06/26/2023 Type 2 diabetes mellitus with other specified complication (ICD-10 - E11.69) She will continue on current therapy. The fasting blood sugar is 94. 07/28/2023 Type 2 diabetes mellitus with other specified complication (ICD-10 - E11.69) She will continue on current therapy. The fasting blood sugar is 94. 12/01/2023 Type 2 diabetes mellitus with other specified complication (ICD-10 - E11.69) She will continue on current therapy. The fasting blood sugar is 94. 04/05/2024 Essential hypertensi on (ICD-10 - I10) Her blood pressure is controlled and no change in her regimen as necessary. 06/26/2023 Hyperlipidemia, unspecified (ICD-10 - E78.5) Her lipids are well controlled and she will continue on her current regimen. 07/28/2023 Hyperlipidemia, unspecified (ICD-10 - E78.5) Her lipids are well controlled and she will continue on her current regimen. 12/01/2023 Hyperlipidemia, unspecified (ICD-10 - E78.5) Her lipids are well controlled and she will continue on her current regimen. 04/05/2024 Type 2 diabetes mellitus with other specified complication (ICD-10 - E11.69) She will continue on current therapy. Her fasting glucose levels have been under 150. She has been compliant with her medication. 06/26/2023 Age-related osteoporosis without current pathological fracture (ICD-10 - M81.0) She is asymptomatic at this time. 07/28/2023 Age-related osteoporosis without current pathological fracture (ICD-10 - M81.0) She is asymptomatic at this time. 12/01/2023 Age-related osteoporosis without current pathological fracture (ICD-10 - M81.0) She is asymptomatic at this time. 04/05/2024 Hyperlipidemia, unspecified (ICD-10 - E78.5) Her lipids are well controlled and she will continue on her current regimen. 06/26/2023 Overweight (ICD-10 - E66.3) Her body mass index is 27 and I have recommended gradual weight reduction to exercise in a diet restricted in fat calories in sodium. 07/28/2023 Former smoker (ICD-1 0 - Z87.891) She seems highly motivated not to smoke and we discussed strategies for prevention of relapse in times of stress and illness. 12/01/2023 Gastroesophageal reflux disease without esophagitis (ICD-10 - K21.9) She has occasional reflux, well-controlled medication and no other therapy is necessary at this time. 04/05/2024 Age-related osteoporosis without current pathological fracture (ICD-10 - M81.0) She is asymptomatic at this time. 06/26/2023 Former smoker (ICD-1 0 - Z87.891) She seems highly motivated not to smoke and we discussed strategies for prevention of relapse in times of stress and illness. 07/28/2023 Overweight (ICD-10 - E66.3) Her body mass index is 27 and I have recommended gradual weight reduction to exercise in a diet restricted in fat calories in sodium. 12/01/2023 Former smoker (ICD-1 0 - Z87.891) She seems highly motivated not to smoke and we discussed strategies for prevention of relapse in times of stress and illness. 07/28/2023 Gastroesophageal reflux disease without esophagitis (ICD-10 - K21.9) She has occasional reflux, well-controlled medication and no other therapy is necessary at this time. 12/01/2023 Other obesity (ICD-1 0 - E66.8) Her body mass index is 30. We have discussed her weight loss strategy. We discussed diet and nutrition. We made a plan to lose weight at a rate of one half of a pound per week. Plan Of Treatment Pending Test Test Name Order Date PROFILE, FASTING (COMPREHENSIVE METABOLI C) 07/28/2023 PROFILE, RANDOM (COMPREHENSIVE METABOLIC ) 02/03/2022 PROFILE, RANDOM (COMPREHENSIVE METABOLIC ) 01/29/2021 PROFILE, RANDOM (COMPREHENSIVE METABOLIC ) 08/02/2019 PROFILE, RANDOM (COMPREHENSIVE METABOLIC ) 01/23/2018 PROFILE, RANDOM (COMPREHENSIVE METABOLIC ) 06/23/2017 PROFILE, RANDOM (COMPREHENSIVE METABOLIC ) 01/31/2020 PROFILE, RANDOM (COMPREHENSIVE METABOLIC ) 07/27/2018 PROFILE, RANDOM (COMPREHENSIVE METABOLIC ) 08/05/2021 PROFILE, RANDOM (COMPREHENSIVE METABOLIC ) 09/20/2017 FERRITIN 11/29/2022 CBC w DIFF 07/31/2020 CBC w DIFF 09/20/2017 CBC w DIFF 02/03/2022 CBC w DIFF 01/29/2021 CBC w DIFF 08/02/2019 CBC w DIFF 06/23/2017 CBC w DIFF 11/29/2022 CBC w DIFF 01/31/2020 CBC w DIFF 08/05/2021 CBC with MANUAL DIFFERENTIAL 01/25/2019 CBC with MANUAL DIFFERENTIAL 01/23/2018 CBC with MANUAL DIFFERENTIAL 07/27/2018 PLATELET COUNT 06/23/2017 SED RATE (ESR) 01/29/2021 SED RATE (ESR) 11/29/2022 RETICULOCYTE COUNT,CORRECTED 11/29/2022 CT CHEST W&WO CONTRAST 07/28/2023 CBC WITH AUTO DIFF 07/28/2023 T SPOT TB 11/29/2022 Lipid Panel 07/28/2023 CT chest w con 10/11/2023 Next Appt Details Provider Name:Fabrice Crain, 10/04/2024 11:00:00 AM, [address] [place] [address] DR, [facility] [address], [place], [id number], Insurance Providers Payer Name Payer Address Payer Phone Subscriber Number Group Number Insured Name Patient Relationship to Insured Coverage Start Date Coverage End Date MEDICARE NGS [address] [place] [phone] [id number] GIANNA TREY Shah Self - patient is the insured [address] [place] [phone] [id number] TREY TEE Self - patient is the insured Medical (General) History Medical History History ICD Code Essential hypertension I10 Fibromyalgia M79.7 hiatal hernia hyperlipidemia osteoarthritis diabetes mellitus essential hypertension osteoporosis GERD overweight former smoker 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 Surgical History Surgery Date(Month/Year) Lung surgery, Left lower lobe 04/07/2023 colonoscopy, Dr. Blanchard 2013 Bladder suspention 1992 choleycystectomy 2005 Tubal ligation 1985 Hospitalization History Reason Date(Month/Year) Hospitalization for ' s parkinson's, alzheimer's, and dementia - september, current year
--- OUTSIDE RECORDS SUMMARY | 2024-06-14 10:53 | XMS_ITS ---
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 Vital Signs Temperature 97.4 degrees Fahrenheit 04/05/20 24 Blood pressure systolic 138 mm Hg 04/05/20 24 Blood pressure diastolic 77 mm Hg 024 Heart Rate 79 /min 04/05/2024 Height 60 in 04/05/2024 Weight 161 lbs 04/05/2024 BMI 31.44 kg/m2 04/05/2024 Encounters Encounter Location Date Provider Diagnosis Fabrice Crain III, MD [address] [place] [address] [place] [address] 04/05/2024 Fabrice Crain Malignant neoplasm o f [...] a day Zoryve 0.3 % 1 application Offset Printing Operator ally Once a day Benzonatate 100 MG TAKE 1 CAPSULE BY [facility] EVERY 8 HOURS NEEDED FOR COUGH [...] Reason: OV, Routine check-up Provider Name:Fabrice Crain, 10/04/2024 11:00:00 AM, [address] [place] [address], [address], Progress Notes * KEVIN GEMMAB:[birth year] (79 yo F)Acc No.[id number]:04/05/2024 Progress Notes Patient:?TREY CANDELARIO Provider:?Fabrice Crain MD :1945???Age:79 Y???Sex:Female D ate:04/05/2024 Address:[address] [place], [place] [id number] Pcp:Dannie Huang MD Subjective: * Chief Complaints: * ???left lung cancer, Stage I , 2022HypertensionDiabetesOsteoporosisObesity * HPI: ???COVID-19 Screening:?Questions?Have you experienced fever, chills, cough, sore throat, shortness of breath, difficulty breathing, muscle aches, loss of taste or smell??No ?Have you been exposed to the virus within the last 10 days??No ?Have you travelled internationally in the last 10 days??No ?Have you been exposed to COVID-19 in the past??No ???:? The patient, a 79-year-old female, presented with [...] 129. Blood Sugar Level is 120-129. * ROS:?General/Constitutional:?pain?only normal aches and pains.?Chills?denies.?Fatigue?admits.?Fever?denies.?ENT:?Decreased hearing?mild.?Respiratory:?Cough?denies.?Cardiovascular:?Chest pain with exertion?denies.?Dyspnea on exertion?denies.?Shortness of breath?with exertion.?Gastrointestinal:?Constipation?occasional.?Decreased appetite?denies.?Diarrhea?denies.?Heartburn?denies.?Nausea?denies.?Rectal bleeding?denies.?Vomiting?denies.?Hematology:?bruising?denies.?petechiae?denies.?Swollen glands?none have been noted.?Genitourinary:?Frequent urination?denies.?Musculoskeletal:?Muscle aches?denies.?Painful joints?denies.?Sciatica?denies.?Weakness?denies.?Skin:?Itching?denies.?Rash?denies.?Skin lesion(s)?denies.?Neurologic:?Difficulty speaking?denies.?Dizziness?denies.?Headache?denies.?Low back pain?denies.?Psychiatric:?Depressed mood?denies.? * Medical History:? * Surgical History:?Tubal liga tion 1985choleycystectomy 2006Bladder suspention 1993colonoscopy, Dr. Blanchard 2013Lung surgery, Left lower lobe 04/07/2023 * Hospitalization/Major Diagno stic Procedure:?Hospitalization for 's parkinson's, alzheimer's, and dementia - september, current year * Family History:?Father: dece ased 62 yrs, cad, mi, diagnosed with CVD.?Mother: 6 yrs, diabetes, diagnosed with DM.?3 son(s) , 1 daughter(s) . .? Her mother was diabetic. Her daughter has rheumatoid arthritis. Her father had coronary artery disease and of a myocardial infarction. Her children are healthy and well. - parkinson's, alzheimer's, and dementia. * Social History:?Tobacco Use:?Tobacco Use/Smoking?Patient is a?former smoker ?How long has it been since you last smoked??> 10 years ?Additional Findings: Tobacco Non-User?Ex-cigarette smoker ???She lives at home with her and does not smoke or drink. She is not employed at the current time. * Medications:?TakingFluticaso ne Furoate 100 MCG/ACT Aerosol Powder Breath Activated [...] and Glucoseno[Allergies Verified] Objective: * Vitals:?Ht: 60, Wt:161, BMI: 31.44, BP:138/77, HR:79, Temp:97.4, Ht-cm: 152.4, Wt-k.03. * Examination: ???General Examination: ?GENERAL APPEARANCE:?pleasant, well nourished, well developed, in no acute distress, calm and relaxed, obese, elderly woman.?HEAD:?atraumatic, normocephalic.?EYES:?eomi, perrla, anicteric, conjugate.?EARS:?normal.?NOSE:?septum intact.?ORAL CAVITY:?normal, unremarkable.?NECK/THYROID:?no jugular venous distention, no carotid bruit, thyroid normal.?LYMPH NODES:?no enlarged lymph nodes,spleen normal.?SKIN:?no suspicious lesions, anicteric.?HEART:?no clicks, gallops, murmurs, or rubs, regular rhythm, S1, S2 normal, no s3, or vascular bruits.?LUNGS:?clear to auscultation, no wheezes, rales, rhonchi, good air movement, Thoracotomy scar is well-healed.?BREASTS:?Not examined.?ABDOMEN:?bowel sounds normal, no ascites, no organomegaly, no mass, centripital obesity.?RECTAL EXAM:?not examined.?MUSCULOSKELETAL:?extremities unremarkable, no clubbing, cyanosis or edema.?PERIPHERAL PULSES:?normal.?NEUROLOGIC:?alert and oriented, cranial nerves 2-12 grossly intact, deep tendon reflexes 2+ symmetrical, motor strength normal upper and lower extremities, sensory exam intact.?PSYCH:?alert, oriented, cognitive function intact, cooperative with exam, good eye contact, thought process logical, goal directed.? Assessment: * Assessment: 1.?Malignant neoplasm of low er lobe of left lung - C34.32 (Primary)???Notes :There is no sign of recurrent disease at this time. Incisions are healed and the pain is slowly resolving???2.?Former smoker - Z87.891???Notes :She seems highly motivated not to smoke and we discussed strategies for prevention of relapse in times of stress and illness.???3.?Gastroesophageal reflux disease without esophagitis - K21.9???Notes :She has occasional reflux, well-controlled medication and no other therapy is necessary at this time.???4.?Essential hypertension - I10???Notes :Her blood pressure is controlled and no change in her regimen as necessary.???5.?Type 2 diabetes mellitus with other specified complication - E11.69???Notes :She will continue on current therapy. Her fasting glucose levels have been under 150.? She has been compliant with her medication.???6.?Hyperlipidemia, unspecified - E78.5???Notes :Her lipids are well controlled and she will continue on her current regimen.???7.?Age-related osteoporosis without current pathological fracture - M81.0???Notes :She is asymptomatic at this time.??? Plan: * Treatment: * Procedure Codes:? * [...] dangers of tobacco use and urged to quit.?04/05/2024 ??DM Care Plan:?Patient Lifestyle Goals?Patient wants to be able to manage diabetes without too much effort.?Treatment Goals?Blood Sugars less than < 115, HbA1C < 7.0.?Barriers?no barriers.?Self-Managment Goals?Work on weight loss, with a goal of losing 1 lb per week.? * Follow Up:?6 Months, In six months (Reason: OV, Routine check-up) * Images: * Sign off status: Completed true * Provider:?Fabrice Crain MD Date:?06/2023 Generated for Printi ng/Glenysg/eTransmitting on:?06/14/2024 10:52 AM EST History and Physical Notes * HPI (History of Present Illness) Category Sub-Category Detail Notes COVID-19 Screening Questions Have you had any new onset fever, chills, cough, congestion, sore throat, shortness of breath, muscle aches?: No Have you been exposed to the virus withi n the last 10 days?: No Have you travelled internationally in e last 10 days?: No Have you been [...]
--- OUTSIDE RECORDS SUMMARY | 2024-06-14 10:53 | XMS_ITS ---
Author Organization Fabrice Crain III, MD Address [address] [place] [address] [place] [address] Care Team Providers Care Plastics Fabricator Or Welder Name Role Phone Dannie Huang MD Primary Care Provider Fabrice Butcher [phone] Chest Social History Sex Assigned At : Social History Observation Description Sex Assigned At Female Encounters Encounter Location Date Provider Diagnosis Fabrice Crain III, MD [address] [place] [address] [address] [facility] [facility] [place] [address] 10/16/2023 Fabrice Crain Plan Of Treatment Next Appt Details Provider Name:Fabrice Crain, 10/04/2024 11:00:00 AM, [address] [place] [address] STEFANY BROWN, [place], [address], Progress Notes * GEMMA BROWNB:[birth year] (78 yo F)Acc No.[id number]:10/16/2023 Patient:?TREY BROWN :1945???Age:78 Y???Sex:Female [address], [address] * true * Date:? Generated for Printi ng/Faxing/eTransmitting on:?06/14/2024 10:53 AM EST
--- OUTSIDE RECORDS SUMMARY | 2024-06-14 10:54 | XMS_ITS ---
Author Organization [facility] Address [address] [place] [address] Care Team Providers Care Audit Control Clerk Name Role Phone Dannie Huang MD Primary Care Provider Fabrice Smiley [phone] REASON FOR VISIT results of procedure Encounters Encounter Location Date Provider Diagnosis [facility] [address] [place] [address] 11/03/2023 Fabrice Blanchard PLAN OF TREATMENT No Information
--- OUTSIDE RECORDS SUMMARY | 2024-06-14 10:54 | XMS_ITS | Patient Health Record ---
Author Organization [facility] Address [address] [place] [address] Care Team Providers Care Advisor To Command In Combat Name Role Phone Dannie Huang MD Primary Care Provider Fbarice Smiley [phone] ALLERGIES Allergen (clinical drug ingredient) Drug/Non Drug Allergy documented on EMR Reaction Allergy Type Onset Date Status lactose Lactose (Intolerance) Unknown Drug Allergy Active niacin Niacin rash Drug Allergy Active cortizone injections (uncoded) elevated bs and bp Allergy Active RESULTS Component Value Reference Range Notes Glucose, Whole Blood Reviewed date:10/27/2023 05:59:32 PM Interpretation: Performing Lab:[address] [address] Notes/Report: Glucose, Whole Blood 154 60-115 mg/dL METER # : [id number] Pathology Reviewed date:11/05/2023 09:43:00 PM Interpretation: Performing Lab:[address] [address] Notes/Report: REASON FOR REFERRAL No Information MEDICATIONS Medication SIG (Take, Route, Frequency, Duration) Notes Start Date End Date Status Azelastine HCl 137 MCG/SPRAY INSTILL 1 S PRAY NASALLY TWICE DAILY IN EACH NOSTRIL Nasal for 90 Active Albuterol Sulfate (2.5 MG/3ML) 0.083% TAKE 1 VIAL USING NEBULIZER FOUR TIMES A DAY NEEDED Inhalation for 10 Active hydrALAZINE HCl 25 MG TAKE 1 TABLET BY M OUTH TWICE A DAY Oral for 90 Active Fluticasone Propionate HFA 110 MCG/ACT Inhalation for 60 Active Omeprazole 20 MG TAKE 1 CAPSULE BY MO UTH TWICE A DAY Oral for 30 Active Pravastatin Sodium 80 MG 1 tablet Orally Once a day Active LORazepam 1mg 1 mg at hs1/2 in am Orally BID Active Carvedilol 6.25 MG 1 Orally BID Active Dextromethorphan HBr Active Claritin Active Flovent HFA 110 MCG/ACT INHALE 1 PUFF(S) BY MOUTH TWICE A DAY Inhalation for 60 Active IMMUNIZATIONS Vaccine Route Administration Date Status Comme nts Flu vaccine no Preserv 3 and > Unknown 04/01/2016 Admin istered SOCIAL HISTORY Sex Assigned At : Social History Observation Description Sex Assigned At Unknown Alcohol Screen Question Answer Notes Did you have a drink containing alcohol in the p ast year? No Points 0 Interpretation Negative PROBLEMS Problem Type ICD Code Onset Dates Problem Status W/U Status Risk SNOMED Code Notes Problem Gastro-esophageal reflux disease without esophagitis (K21.9) Active confirmed Gastro-esophage al reflux disease without esophagitis (095123740) Problem Encounter for screening for malignant neoplasm of colon (Z12.11) Active confirmed 984744211 Problem History of adenomatous polyp of colon (Z86.010) Active confirmed 459132601 Problem Diverticulosis of large intestine without perforation or abscess without bleeding (K57.30) Active confirmed Diverticul ar disease of colon (474878065) Problem Generalized abdominal pain (R10.84) Active confirmed 492119766 Problem Gastroesophageal reflux disease, esophagitis presence not specified (K21.9) Active confirmed 273200489 Problem Irritable bowel syndrome with both constipation and diarrhea (K58.2) Active confirmed 02051593 Problem Chronic cough (R05.3) Active confirmed Chronic cough (49834067) VITAL SIGNS Temperature 97.8 degrees Fahrenheit 08/01/2023 Blood pressure diastolic 00 mm Hg 08/01/2023 Height 64 in 08/01/2023 Blood pressure systolic 00 mm Hg 08/01/2023 Weight 162 lbs 08/01/2023 BMI 27.80 kg/m2 08/01/2023 Encounters Encounter Location Date Provider Diagnosis [facility] Outpatient [address] [place] [phone] 10/27/2023 Fabrice Blanchard Encounter for screen ing colonoscopy Z12.11 ; Colon polyps K63.5 ; Diverticulosis of large intestine without perforation or abscess without bleeding K57.30 ; Other hemorrhoids K64.8 ; Hiatal hernia K44.9 and Gastro-esophageal reflux disease without esophagitis K21.9 [facility] [address] [place] [address] 08/29/2023 Fabrice Blanchard [facility] [address] [place] [address] 08/01/2023 Fabrice Blanchard Gastroesophageal ref lux disease, esophagitis presence not specified K21.9 ; History of adenomatous polyp of colon Z86.010 ; Encounter for screening for malignant neoplasm of colon Z12.11 and Chronic cough R05.3 [facility] [address] [place] [address] 11/03/2023 Fabrice Blanchard ASSESSMENTS Encounter Date Diagnosis Assessment Notes Treatment Notes Treatment Clinical Notes 10/27/2023 Encounter for screen ing colonoscopy (ICD-10 - Z12.11) 10/27/2023 Colon polyps (ICD-10 - K63.5) 08/01/2023 History of adenomato us polyp of colon (ICD-10 - Z86.010) 08/01/2023 Gastroesophageal ref lux disease, esophagitis presence not specified (ICD-10 - K21.9) For your reflux: Avoid eating for 3 to 4 hours before bedtime. Watch diet and weight in general. Continue omeprazole twice a day. 10/27/2023 Diverticulosis of la rge intestine without perforation or abscess without bleeding (ICD-10 - K57.30) 08/01/2023 Encounter for screen ing for malignant neoplasm of colon (ICD-10 - Z12.11) 10/27/2023 Other hemorrhoids (ICD-10 - K64.8) 08/01/2023 Chronic cough (ICD-1 0 - R05.3) 10/27/2023 Hiatal hernia (ICD-1 0 - K44.9) 10/27/2023 Gastro-esophageal reflux disease without esophagitis (ICD-10 - K21.9) PLAN OF TREATMENT Pending Test Test Name Order Date AMYLASE 09/27/2016 LIPASE 09/27/2016 CBC w DIFF 09/27/2016 Future Test Test Name Order Date COLONOSCOPY 06/13/2013 COLONOSCOPY 08/16/2018 UPPER GI ENDOSCOPY 08/01/2023 COLONOSCOPY 08/01/2023 Insurance Providers Payer Name Payer Address Payer Phone Subscriber Number Group Number Insured Name Patient Relationship to Insured Coverage Start Date Coverage End Date MEDICARE OF [place] [address] [place] [id number] TREY TEE Self - patient is the insured [facility] [address] [address] [facility] [phone] [id number] TREY TEE Self - patient is the insured MEDICAL (GENERAL) HISTORY Medical History History ICD Code Irritable bowel syndrome ? hx of ulcer disease in the Colonoscopy 10-14-2008-negati ve except diverticulosis and internal hemorrhoids Colon polyps-tubular adenomas removed in 2001 and 2004 GERD--EGD in 1994 neg-Bx neg for H.pylor i NIDDM fibromyalgia hyperlipidemia hypertension Denies UT,CVA,Lung disease,renal disease EGD in 10/2012--neg except for a small HH --no celiac disease, no H.pylori Colonoscopy 08/2013 and in --negative except for sigmoid diverticulosis and internal hemorrhoids Lung cancer with surgery as below in 2022 Surgical History Surgery Date(Month/Year) bladder suspension 1992 cholecystectomy 2003 tubal ligation 1985 LLL lung resection for cancer-Dr. Shaffer at [facility] 04/07/2023
--- OUTSIDE RECORDS SUMMARY | 2024-06-14 10:54 | XMS_ITS ---
Author Organization [facility] Address [address] [place] [address] Care Team Providers Care Format Proofreader Name Role Phone Dannie Huang MD Primary Care Provider Fabrice Smiley [phone] REASON FOR VISIT screening,hx polyps,gerd PROBLEMS Problem Type ICD Code Onset Dates Problem Status W/U Status Risk SNOMED Code Notes Problem Diverticulosis of large intestine without perforation or abscess without bleeding (K57.30) Active confirmed Diverticul ar disease of colon (228444995) Problem Gastro-esophageal reflux disease without esophagitis (K21.9) Active confirmed Gastro-esophage al reflux disease without esophagitis (714653881) Encounters Encounter Location Date Provider Diagnosis [facility] Outpatient [address] [place] [phone] 10/27/2023 Fabrice Blanchard Encounter for scre ening colonoscopy Z12.11 ; Colon polyps K63.5 ; Diverticulosis of large intestine without perforation or abscess without bleeding K57.30 ; Other hemorrhoids K64.8 ; Hiatal hernia K44.9 and Gastro-esophageal reflux disease without esophagitis K21.9 ASSESSMENTS Encounter Date Diagnosis Assessment Notes Treatment Notes Treatment Clinical Notes 10/27/2023 Encounter for screening colonoscopy (ICD-10 - Z12.11) 10/27/2023 Colon polyps (ICD-10 - K63.5) 10/27/2023 Diverticulosis of large intestine without perforation or abscess without bleeding (ICD-10 - K57.30) 10/27/2023 Other hemorrhoids (ICD-10 - K64.8) 10/27/2023 Hiatal hernia (ICD-1 0 - K44.9) 10/27/2023 Gastro-esophageal reflux disease without esophagitis (ICD-10 - K21.9) PLAN OF TREATMENT No Information
--- OUTSIDE RECORDS SUMMARY | 2024-06-14 10:54 | XMS_ITS ---
Author Organization [facility] Address [address] [place] [address] Care Team Providers Care Rubber Extrusion Machine Operator Name Role Phone Dannie Huang MD Primary Care Provider Fabrice Smiley [phone] REASON FOR VISIT abdominal pain Encounters Encounter Location Date Provider Diagnosis [facility] [address] [place] [address] 08/29/2023 Fabrice Blanchard PLAN OF TREATMENT No Information
[2024-06-14 11:41] LABS: MANUAL DIFF FLAG NO
[2024-06-14 11:48] LABS: Basophils Percent Auto 0.8 % (0-2); Eosinophils Absolute Auto 0.1 X10*3/uL (0.0-0.4); Eosinophils Percent Auto 1.5 % (0-4); Hematocrit 35.1 % (37.0-47.0); Hemoglobin 12.4 g/dl (12.0-16.0); Imm Gran Abs Auto 0.01 X10*3/uL (0.00-0.03); Imm Gran Pct Auto 0.2 % (0.0-0.4); Lymphocytes Absolute Auto 2.5 X10*3/uL (1.2-4.9); Lymphocytes Percent Auto 48.4 % (20-40); Mean Corpuscular HGB Conc 35.3 g/dl (31.0-35.0); Mean Corpuscular Hemoglobin 27.4 pg (27.0-33.0); Mean Corpuscular Volume 77.5 fL (80.0-98.0); Mean Platelet Volume 10.1 fL (9.4-12.3); Monocytes Absolute Auto 0.5 X10*3/uL (0.1-1.2); Monocytes Percent Auto 10.2 % (2-11); Neutrophils Percent Auto 38.9 % (45-73); Platelet Count 256 X10*3/uL (160-400); Red Blood Count 4.53 X10*6/uL (4.20-5.50); Red Cell Distribution Width 14.6 % (11.0-16.0); White Blood Count 5.2 X10*3/uL (4.8-10.8)
[2024-06-14 12:00] LABS: Estimated Average Glucose 137 mg/dL; Hemoglobin A1C 149.4846 umol/L; Hemoglobin A1c % 6.4 % (<6.0); Total Hemoglobin (HGBA1C) 3237.1412 umol/L
[2024-06-14 12:37] LABS: Alanine Aminotransferase 29 U/L (0-31); Albumin Level 3.9 g/dL (3.5-5.0); Alkaline Phosphatase 99 U/L (39-117); Anion Gap 9 (12-20); Aspartate Amino Transferase 29 U/L (5-31); Bilirubin Total 0.4 mg/dL (0.0-1.0); Blood Urea Nitrogen 14 mg/dL (9-16); Carbon Dioxide 28 mmol/L (22-29); Chloride 110 mmol/L (96-108); Estimated Glomerular Filt Rate > 60; Glucose Random 137 mg/dL (60-115); Potassium 3.8 mmol/L (3.3-5.1); Sodium 143 mmol/L (135-145); Total Protein 7.2 g/dL (6.5-8.0)
[2024-06-14 13:57] LABS: Creatinine Urine 110.82 mg/dL; Microalbum/Creatinine Ratio Ur 8.1 ug/mg cr (<30)
== END 2024-06-14 10:42 | disposition home or self-care (01) ==
LOC: HO.10HDL 10:41
PROVIDERS: Visit Provider Internal Medicine
DX: I10 Essential (primary) hypertension (principal); E11.9 Type 2 diabetes mellitus without complications; J45.909 Unspecified asthma, uncomplicated; K21.9 Gastro-esophageal reflux disease without esophagitis
CPT/HCPCS: 36415; 80053; 82043; 82570; 83036; 85025

== ENCOUNTER 2024-06-25 14:17 | Outpatient (REF) | payer MEDICARE, OTHER, SELFPAY ==
--- NOTE | ~2024-06-25 | XR_ITS ---
EXAMINATION: XR CHEST CLINICAL INFORMATION: COUGH COMPARISON: None available. TECHNIQUE: 2 views of the chest were obtained. FINDINGS: The cardiac, hilar, and mediastinal contours are normal. The lungs are somewhat hyperaerated bilaterally. There are surgical samira abutting the left superior hilum. Subtle increased opacity in the left lower lung distribution, only well appreciated on the PA projection. Findings are suspicious for subtle pneumonia. Lungs otherwise clear. There is no pneumothorax or pleural effusion. There is no focal osseous or soft tissue abnormality. XR/XR chest 2V IMPRESSION: 1. Findings suspicious for subtle left base pneumonia. 2. Postop changes left superior hilum. 3. Underlying COPD. Electronically signed by: Jalil Cooper MD 06/25/2024 03:07 PM JUDY JIMENEZ
== END 2024-06-25 14:18 | disposition home or self-care (01) ==
LOC: HO.XRAY 14:17
PROVIDERS: PCP Internal Medicine; Visit Provider Internal Medicine
DX: R05.9 Cough, unspecified (principal)
CPT/HCPCS: 71046

== ENCOUNTER → 2024-06-25 14:27 | Outpatient (BNV) | payer MEDICARE, OTHER, SELFPAY | PROVIDERS: PCP Internal Medicine; Visit Provider Radiology Diagnostic Radiology | DX: R05.9 Cough, unspecified (principal) | CPT/HCPCS: 71046 ==

== ENCOUNTER 2024-07-24 08:21 | Outpatient (REF) | payer MEDICARE, OTHER, SELFPAY ==
--- NOTE | ~2024-07-24 | XR_ITS ---
EXAMINATION: XR SHOULDER, RIGHT CLINICAL INFORMATION: M25.519 - Pain in unspecified shoulder COMPARISON: None available. TECHNIQUE: Three views of the right shoulder. FINDINGS: Normal bone mineralization. No fracture, dislocation, or suspicious bone lesion. Normal alignment. The glenohumeral joint is normal. The AC joint is normal. There is a mildly downsloping posterior lateral acromion. No significant spur. The subacromial space is preserved. Remainder of the soft tissue and bony structures appear normal. XR/XR shoulder RT min 2V IMPRESSION: Normal right shoulder. Electronically signed by: Jalil Cooper MD 07/24/2024 01:15 PM JUDY
--- OUTSIDE RECORDS SUMMARY | 2024-07-25 08:45 | XMS_ITS ---
Author Organization [facility] Address [address] [place] [address] Care Team Providers Care Bow Maker Custom Name Role Phone Dannie Huang MD Primary Care Provider Fabrice Smiley [phone] REASON FOR VISIT abdominal pain Encounters Encounter Location Date Provider Diagnosis [facility] [address] [place] [address] 08/29/2023 Fabrice Blanchard PLAN OF TREATMENT No Information
--- OUTSIDE RECORDS SUMMARY | 2024-07-25 08:45 | XMS_ITS ---
Author Organization [facility] Address [address] [place] [address] Care Team Providers Care Director Of Partner Marketing Name Role Phone Dannie Huang MD Primary Care Provider Fabrice Smiley [phone] REASON FOR VISIT results of procedure Encounters Encounter Location Date Provider Diagnosis [facility] [address] [place] [address] 11/03/2023 Fabrice Blanchard PLAN OF TREATMENT No Information
--- OUTSIDE RECORDS SUMMARY | 2024-07-25 08:45 | XMS_ITS ---
Author Organization [facility] Address [address] [place] [address] Care Team Providers Care Systems Test Technician Name Role Phone Dannie Huang MD Primary Care Provider Radha Last Unavailable [phone] Param Syed [phone] REASON FOR VISIT sooner appt Encounters Encounter Location Date Provider Diagnosis [address] [address] 01/04/2024 Param Syed Plan Of Treatment Next Appt Details Provider Name:Radha little, 09/26/2024 03:45:00 PM, [address] [place] [address], [phone], Progress Notes * Jesse CANDELARIOaDOB:[birth year] (79 yo F)Acc No.[id number]:01/04/2024 Progress Note Patient:?Julienne CANDELARIO Provider:?Param Syed DPM :1945???Age:78 Y???Sex:Female D ate:01/04/2024 Address:[address] [place] [address], [id number] Pcp:Dannie Huang MD Subjective: * Chief Complaints: [...] DPM Date:? 024 Generated for Bryan lee/Emily/Sher on:?07/25/2024 08:45 AM EST
--- OUTSIDE RECORDS SUMMARY | 2024-07-25 08:45 | XMS_ITS ---
Author Organization [facility] [place] Address [address] [place] [address] Care Team Providers Care Public Address System Operator Name Role Phone Dannie Huang MD Primary Care Provider Unavaila Radha Vizcaino Unavailable [phone] Param Syed Unavailable [phone] Allergies Allergen (clinical drug ingredient) Drug/Non Drug [...] 024 Encounters Encounter Location Date Provider Diagnosis [facility] [place] [address] [place] [address] 02/22/2024 Param Syed Tinea unguium B35.1 ; [...] Reason: Provider Name:Radha little, 09/26/2024 03:45:00 PM, [address] [place] [address], [phone], Procedure Notes * Category Sub-Category Detail Notes [...] as necessary. Patient chooses, no pharmaceutical tx (22750) Keratoma Treatment Parring or Cutting o f Benign Hyperkeratotic Lesion(s) 13157 ( >4 Lesions) - The Benign hyperkeratotic lesions, as described above were pared, and/or cut utilizing a sterile #15 blade, tissue nippers, and/or dremel Progress Notes * Yesica CANDELARIO:[birth year] (79 yo F)Acc No.[id number]:02/22/2024 Progress Note Patient:?Julienne CANDELARIO Provider:?Param Syed DPM :1945???Age:78 Y???Sex:Female D ate:02/22/2024 Address:[address] [place] [address] [facility] Pcp:Dannie Huang MD Subjective: * Chief Complaints: * ??? Painful nail(s) aggrevat ed by shoes and causing difficulty standing/walking. * HPI: ???Painful Nails:?Pt States Last PCP Visit:?Date:?07/07/2023 ?Misc:?04/07/[address] Cheng at [facility] for lung ca nodule with [...] 2013 Lungbectomy 04/2023 * Hospitalization/Major Diagno stic Procedure:?[facility] day stay , for chest pain, high blood pressure and a head bump 03/2013[facility] - Fell / concousin 01/07/17[facility] Care /PCP- Fell Broke Nose 05/21/21PCP - [...] status: . 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 * Medications:?TakingClobetaso l Emul Foam w/MoistCr Tylenol , Notes to Pharmacist: 2 every 8 hourAntibiotic , Notes to Pharmacist: 7 dayAlbuterol Sulfate HFA , Notes to Pharmacist: PRNAzelastine-Fluticasone , Notes to Pharmacist: PRNDelsym Carvedilol Hyoscyamine Sulfate LORazepam 1mg Omeprazole 10 MG Capsule Delayed Release 1 capsule Orally Once a day Pravastatin Sodium prednisoLONE Multivitamin Night Splint AFO - L1930 [facility] with 3 [...] reconciled with the patient * Allergies:?Niacin: agusMertsoren christiano: elevated BP/ elevated BSyes[Allergies Verified] Objective: * [...] as necessary. Patient chooses, no pharmaceutical tx (24213).?Keratoma Treatment:?Parring or Cutting of Benign Hyperkeratotic Lesion(s)?44739 ( >4 Lesions) - The Benign hyperkeratotic lesions, as described above were pared, and/or cut utilizing a sterile #15 blade, tissue nippers, and/or dremel.? * Procedure Codes:?43048 DEBRI DE NAIL, 6 OR MORE, Modifiers: XS 49870 TRIM SKIN LESIONS, OVER 4, Modifiers: XS * Follow Up:?3 Months * Images: * Sign off status: Completed true * Provider:?Param Syed DPM Date:? 024 Generated for Bryan lee/Emily/Sher on:?07/25/2024 08:45 AM EST History and Physical Notes * [...] Misc: 04/07/[address] Cheng at [facility] for lung ca nodule with [...] lipoma karl ankles left more than right General Examination [...]
--- OUTSIDE RECORDS SUMMARY | 2024-07-25 08:45 | XMS_ITS ---
Author Organization Fabrice Crain III, MD Address [address] [place] [address] Care Team Providers Care Embryology Professor Name Role Phone Dannie Huang MD Primary Care Provider Fabrice Butcher Unavailable [phone] Allergies Allergen (clinical drug ingredient) Drug/Non Drug [...] Benzonatate 100 MG TAKE 1 CAPSULE BY [facility] EVERY 8 HOURS NEEDED FOR COUGH Oral Active Albuterol Sulfate HFA 108 (90 Base) MCG/ACT 1 puff as needed Inhalation every 4 hrs Active Zoryve 0.3 % 1 application Waste Duster ally Once a day Active LORazepam 1 [...] Problem Status W/U Status Risk Notes Problem [id number] Other obesity (E66.8) Active confirmed Her body [...] Date Provider Diagnosis Fabrice Crain III, MD [address] [place] [address] [place] [address] 12/01/2023 Fabrice Crain Malignant neoplasm o f [...] Benzonatate 100 MG TAKE 1 CAPSULE BY [facility] EVERY 8 HOURS NEEDED FOR COUGH Oral Albuterol Sulfate HFA 108 (9 0 Base) MCG/ACT 1 puff as needed Inhalation every 4 hrs Zoryve 0.3 % 1 application Waste Duster ally Once a day LORazepam 1 MG [...] OV Provider Name:Fabrice Crain, 10/04/2024 11:00:00 AM, [address] [place] [address] STEFANY BROWN, [place], [phone], Progress Notes * JUVENTINO CANDELARIO:[birth year] (78 yo F)Acc No.[id number]:12/01/2023 Progress Notes Patient:?TREY CANDELARIO Provider:?Fabrice Crain MD :1945???Age:78 Y???Sex:Female D ate:12/01/2023 Address:[address] [place], [place] [address] Pcp:Dannie Huang MD Subjective: * Chief Complaints: [...] mg/dL) 52 (Ref Range: mg/dL) * Lab:[facility] Pane l Fast * Order Date 11/13/2023 [...] Crain MD Date:?11/04 Generated for Bryan lee/Emily/Reneaitting on:?07/25/2024 08:45 AM EST History and Physical Notes * HPI (History of Present Illness) Category Sub-Category Detail Notes COVID-19 Screening Questions Have you had any new onset fever, chills, cough, congestion, sore throat, shortness of breath, muscle aches?: No Have you been exposed to the virus with n the last 10 days?: No Have you travelled internationally in [facility] last 10 days?: No Have you [...]
--- OUTSIDE RECORDS SUMMARY | 2024-07-25 08:46 | XMS_ITS ---
Author Organization [facility] [place] Address [address] [place] [address] Care Team Providers Care Mathematics Academic Chair Name Role Phone Dannie Huang MD Primary Care Provider Radha Last Unavailable [phone] Allergies Allergen (clinical drug ingredient) Drug/Non Drug [...] Polyneuropathy due to diabetes mellitus type I ([id number]) Type 1 diabetes mellitus with diabetic polyneuropathy (E10.42) Active confirmed Vital Signs Height 5 ft 4 in in 06/03/2024 Weight 157 lbs 06/03/2024 BMI 26.95 kg/m2 06/03/2024 Blood pressure systolic 111 mm Hg 06/03/20 24 Blood pressure diastolic 67 mm Hg 024 Procedures Procedure Date Ordered Date Performed Result Body Sit e 36580-ILANKOF NAIL, 6 OR MORE 06/03/2024 N/A 00989-ETXJ SKIN LESIONS, OVER 4 06/03/2024 N/A Encounters Encounter Location Date Provider Diagnosis [facility] [address] [place] [address] 06/03/2024 Radha Weir Type 2 diabetes mellitus with diabetic polyneuropathy E11.42 and Tinea unguium B35.1 Assessments Encounter Date Diagnosis (ICD Code) Assessment Notes Treatment Notes Treatment Clinical Notes Section Notes 06/03/2024 Type 2 diabetes mellitus with diabetic polyneuropathy (ICD-10 - E11.42) 06/03/2024 Tinea unguium (ICD-10 - B35.1) Plan Of Treatment Pending Test Test Name Order Date 84903-TOEBWQQ NAIL, 6 OR MORE 06/03/2024 82139-FGOP SKIN LESIONS, OVER 4 06/03/20 Next Appt Details Follow Up: 4 Months, Reason: Provider Name:Radha little, 09/26/2024 03:45:00 PM, [address] [place] [address], [place], [address], Procedure Notes * Category Sub-Category Detail Notes [...] use of a nail nipper and/or dremel-type grinder operator tool, to a more viable healthy nail plate [...] power dremel instrumentation by the physician of [facility] - [address] Progress Notes * Ahsan CANDELARIOB:[birth year] (79 yo F)Acc No.[id number]:06/03/2024 Progress Note Patient:?Julienne CANDELARIO Provider:?Radha Weir DPM :1945???Age:79 Y???Sex:Female D ate:06/03/2024 Address:[address] [place] [address] Pcp:Dannie Huang MD Subjective: * Chief Complaints: [...] 1985endoscopy 2013Lungbectomy 04/2023 * Hospitalization/Major Diagno stic Procedure:?[facility] stay , for chest pain, high blood pressure and a head bump 03/2013[facility] [place] - Fell / concousin 01/07/17[facility]- [...] status: . 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 * Medications:?TakingTussin Al legra Extra Depth Diabetic [...] use of a nail nipper and/or dremel-type grinder operator tool, to a more viable healthy nail plate [...] to maintain effectiveness in symptomatic relief - 38724.?Keratoma Treatment:?Parring or Cutting of Benign Hyperkeratotic Lesion(s)?(-57) [...] instrumentation by the physician of record - 34952.? * Procedure Codes:?49104 DEBRI DE NAIL, 6 OR MORE, Modifiers: XS 41301 TRIM SKIN LESIONS, OVER 4, Modifiers: XS * Follow Up:?4 Months * Images: * Sign off status: Completed true * Provider:?Radha Weir DPM Date:? Generated for Bryan lee/Emily/eTransmitting on:?07/25/2024 08:46 AM EST History and Physical Notes * [...]
--- OUTSIDE RECORDS SUMMARY | 2024-07-25 08:46 | XMS_ITS ---
Author Organization [facility] Address [address] [place] [address] Care Team Providers Care Safety Aide Name Role Phone Dannie Huang MD Primary Care Provider Fabrice Smiley [phone] REASON FOR VISIT screening,hx polyps,gerd PROBLEMS Problem Type ICD Code Onset Dates Problem Status W/U Status Risk SNOMED Code Notes Problem Diverticulosis of large intestine without perforation or abscess without bleeding (K57.30) Active confirmed Diverticul ar disease of colon (629854731) Problem Gastro-esophageal reflux disease without esophagitis (K21.9) Active confirmed Gastro-esophage al reflux disease without esophagitis (108894232) Encounters Encounter Location Date Provider Diagnosis [facility] [address] [place] [phone] 10/27/2023 Fabrice Blanchard Encounter for scre ening [...]
--- OUTSIDE RECORDS SUMMARY | 2024-07-25 08:46 | XMS_ITS | Patient Health Record ---
Author Organization Fabrice Crain III, MD Address [address] [facility] [place] [address] Care Team Providers Care Block Piler Name Role Phone Dannie Huang MD Primary Care Provider Fabrice Butcher Unavailable [phone] Allergies Allergen (clinical drug ingredient) Drug/Non Drug Allergy documented on EMR Reaction Allergy Type Onset Date Status cortisone Cortisone elevated BP and Glucose Drug Allergy Active Niacin Unknown Drug Allergy Active Lactose Unknown Drug Allergy Active Results Component Value Reference Range Notes Complete Blood Count Auto Di ff Reviewed date:11/14/2023 05:01:48 PM Interpretation: Performing Lab:[facility], [address] [place] [phone] Notes/Report: White Blood Count 5.5 4.8-10.8 X10*3/uL [...] NRBC Abs Auto 0.000 0.0-0.012 X10*3/uL Comprehensive Mack. Panel Fa st Reviewed date:11/14/2023 05:01:48 PM Interpretation: Performing Lab:[facility], [address] [place] [phone] Notes/Report: Sodium 143 135-145 mmol/L Potassium 4.1 3.3-5.1 mmol/L Chloride 107 96-108 mmol/L Carbon Dioxide 24 22-29 mmol/L Anion Gap 16 12-20 Blood Urea Nitrogen 13 9-16 mg/dL Creatinine 0.66 0.5-1.4 mg/dL Estimated Glomerular Filt Rate > 60 NOTE: For -Vincentian individuals, multiply the result by 1.210. Chronic [...] Panel Reviewed date:11/14/2023 05:01:48 PM Interpretation: Performing Lab:[facility], [address] [place] [phone] Notes/Report: Triglycerides 165 <150 mg/dL Desirable Triglyceride: [...] day Active Zoryve 0.3 % 1 application Mechanical Maintenance Instructor ally Once a day Active Benzonatate 100 [...] Problem Status W/U Status Risk Notes Problem 5696351 Former smoker (Z87.891) Active confirmed She seems highly motivated not to smoke and we discussed strategies for prevention of relapse in times of stress and illness. Problem 048697698 Fibromyalgia (M79.7) Active confirmed She has occasional low-grade abdominal discomfort. Problem 782975676130 Type 2 diabetes mellitus with other specified complication (E11.69) Active confirmed She will continue on current therapy. Her fasting glucose levels have been under 150. She has been compliant with her medication. Problem 384608795 Other obesity (E66.8) Active confirmed Her body mass index is 30. We have discussed her weight loss strategy. We discussed diet and nutrition. We made a plan to lose weight at a rate of one half of a pound per week. Problem 77805086 Hyperlipidemia, unspecified (E78.5) Active confirmed Her lipids are well controlled and she will continue on her current regimen. Problem 94168354 Age-related osteoporosis without current pathological fracture (M81.0) Active confirmed She is asymptomatic at this time. Problem 36111243 Essential hypertension (I10) Active confirmed Her blood pressure is controlled and no change in her regimen as necessary. Problem 628126348 Gastroesophageal reflux disease without esophagitis (K21.9) Active confirmed She has occasional reflux, well-controll ed medication and no other therapy is necessary at this time. Problem Anemia (166334442) Anemia, unspecified type (D64.9) Active confirmed She has a mild microcytic anemia with a ferritin over 100. The microcytosis is new. She'll be followed carefully. It does not require treatment at this time. 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 Vital Signs Heart Rate 79 /min 04/05/2024 Temperature 97.4 degrees Fahrenheit 04/05/2024 Blood pressure diastolic 77 mm Hg 04/05/2024 Height 60 in 04/05/2024 Blood pressure systolic 138 mm Hg 04/05/2024 Weight 161 lbs 04/05/2024 BMI 31.44 kg/m2 04/05/2024 Encounters Encounter Location Date Provider Diagnosis Fabrice Crain III, MD [address] [place] [address] [place] [address] 07/28/2023 Fabrice Brandtrne Malignant neoplasm o f lower lobe of left lung C34.32 ; Essential hypertension I10 ; Fibromyalgia M79.7 ; Type 2 diabetes mellitus with other specified complication E11.69 ; Hyperlipidemia, unspecified E78.5 ; Age-related osteoporosis without current pathological fracture M81.0 ; Former smoker Z87.891 ; Overweight E66.3 and Gastroesophageal reflux disease without esophagitis K21.9 Fabrice Crain III, MD [address] [place] [address] [place] [address] 12/01/2023 Fabrice Crain Malignant neoplasm o f lower lobe of left lung C34.32 ; Essential hypertension I10 ; Fibromyalgia M79.7 ; Type 2 diabetes mellitus with other specified complication E11.69 ; Hyperlipidemia, unspecified E78.5 ; Age-related osteoporosis without current pathological fracture M81.0 ; Gastroesophageal reflux disease without esophagitis K21.9 ; Former smoker Z87.891 and Other obesity E66.8 Fabrice Crain III, MD [address] [place] [address] [place] [address] 04/05/2024 Fabrice Crain Malignant neoplasm o f lower lobe of left lung C34.32 ; Former smoker Z87.891 ; Gastroesophageal reflux disease without esophagitis K21.9 ; Essential hypertension I10 ; Type 2 diabetes mellitus with other specified complication E11.69 ; Hyperlipidemia, unspecified E78.5 and Age-related osteoporosis without current pathological fracture M81.0 Fabrice Crain III, MD [address] [place] [address] [place] [address] 10/11/2023 Fabrice Crain Malignant neoplasm o f lower lobe of left lung C34.32 Fabrice rCain III, MD [address] [place] [address] [place] [address] 10/16/2023 Fabrice Crain Assessments Encounter Date Diagnosis [...] Details Provider Name:Fabrice Crain, 10/04/2024 11:00:00 AM, [address] [place] [address] , [facility] [address], [place], [address], Insurance Providers Payer Name Payer Address Payer Phone Subscriber Number Group Number Insured Name Patient Relationship to Insured Coverage Start Date Coverage End Date MEDICARE NGS [address] [place] [phone] [id number] GIANNA ZTREY Self - patient is the insured [address] [place] [address] [id number] TREY TEE Self - patient is the insured Medical (General) History Medical History History ICD Code Essential hypertension I10 Fibromyalgia M79.7 hiatal hernia hyperlipidemia osteoarthritis diabetes mellitus essential hypertension osteoporosis GERD overweight former smoker 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 Blanchard 2013 Bladder suspention 1992 choleycystectomy 2005 Tubal ligation 1985 Hospitalization History Reason Date(Month/Year) Hospitalization for ' s parkinson's, alzheimer's, and dementia - september, current year
--- OUTSIDE RECORDS SUMMARY | 2024-07-25 08:46 | XMS_ITS | Patient Health Record ---
Author Organization [facility] Address [address] [place] [address] Care Team Providers Care Auto Apprentice Mechanic Name Role Phone Dannie Huang MD Primary Care Provider Fabrice Smiley [phone] ALLERGIES Allergen (clinical drug ingredient) Drug/Non Drug Allergy documented on EMR Reaction Allergy Type Onset Date Status lactose Lactose (Intolerance) Unknown Drug Allergy Active Niacin rash Drug Allergy Active cortizone injections (uncoded) elevated bs and bp Allergy Active RESULTS Component Value Reference Range Notes Glucose, Whole Blood Reviewed date:10/27/2023 05:59:32 PM Interpretation: Performing Lab:[address] [address] Notes/Report: Glucose, Whole Blood 154 60-115 mg/dL METER # : [id number] Pathology Reviewed date:11/05/2023 09:43:00 PM Interpretation: Performing Lab:[address] [address] Notes/Report: REASON FOR REFERRAL No Information MEDICATIONS [...] 20 MG TAKE 1 CAPSULE BY [facility] TWICE A DAY Oral for 30 Active [...] confirmed Gastro-esophage al reflux disease without esophagitis (613524291) Problem Encounter for screening for malignant neoplasm of colon (Z12.11) Active confirmed 163345848 Problem History of adenomatous polyp of colon (Z86.010) Active confirmed 060485755 Problem Diverticulosis of large intestine without perforation or abscess without bleeding (K57.30) Active confirmed Diverticul ar disease of colon (001408138) Problem Generalized abdominal pain (R10.84) Active confirmed 640855390 Problem Gastroesophageal reflux disease, esophagitis presence not specified (K21.9) Active confirmed 088305388 Problem Irritable bowel syndrome with both constipation and diarrhea (K58.2) Active confirmed 65553433 Problem Chronic cough (R05.3) Active confirmed Chronic cough (59811633) VITAL SIGNS Temperature 97.8 degrees Fahrenheit 08/01/2023 Blood pressure diastolic 00 mm Hg 08/01/2023 Height 64 in 08/01/2023 Blood pressure systolic 00 mm Hg 08/01/2023 Weight 162 lbs 08/01/2023 BMI 27.80 kg/m2 08/01/2023 Encounters Encounter Location Date Provider Diagnosis [facility] Outpatient [address] [place] [phone] 10/27/2023 Fabrice Blanchard Encounter for screen ing colonoscopy Z12.11 ; Colon polyps K63.5 ; Diverticulosis of large intestine without perforation or abscess without bleeding K57.30 ; Other hemorrhoids K64.8 ; Hiatal hernia K44.9 and Gastro-esophageal reflux disease without esophagitis K21.9 [facility] [address] [place] [address] 08/29/2023 Fabrice Blanchard [facility] [address] [place] [address] 08/01/2023 Fabrice Blanchard Gastroesophageal ref lux disease, esophagitis presence not specified K21.9 ; History of adenomatous polyp of colon Z86.010 ; Encounter for screening for malignant neoplasm of colon Z12.11 and Chronic cough R05.3 [facility] [address] [place] [address] 11/03/2023 Fabrice Blanchard ASSESSMENTS Encounter Date Diagnosis [...] OF [place] [address] [place] [address] [id number] TREY TEE Self - patient is the insured [facility] [address] [place] [address] [id number] TREY TEE Self - patient is the insured MEDICAL (GENERAL) HISTORY Medical History History ICD Code Irritable bowel syndrome ? hx of ulcer disease in the Colonoscopy 10-14-2008-negati ve except diverticulosis and internal hemorrhoids Colon polyps-tubular adenomas removed in 2001 and 2004 GERD--EGD in 1994 neg-Bx neg for H.pylor i NIDDM fibromyalgia hyperlipidemia hypertension Denies WA,CVA,Lung disease,renal disease EGD in 10/2012--neg except for a small HH --no celiac disease, no H.pylori Colonoscopy 08/2013 and in --negative except for sigmoid diverticulosis and internal hemorrhoids Lung cancer with surgery as below in 2022 Surgical History Surgery Date(Month/Year) bladder suspension 1992 cholecystectomy 2003 tubal ligation 1985 LLL lung resection for cancer-Dr. Shaffer at [facility] 04/07/2023
--- OUTSIDE RECORDS SUMMARY | 2024-07-25 08:47 | XMS_ITS ---
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 Vital Signs Temperature 97.4 degrees Fahrenheit 04/05/20 24 Blood pressure systolic 138 mm Hg 04/05/20 24 Blood pressure diastolic 77 mm Hg 024 Heart Rate 79 /min 04/05/2024 Height 60 in 04/05/2024 Weight 161 lbs 04/05/2024 BMI 31.44 kg/m2 04/05/2024 Encounters Encounter Location Date Provider Diagnosis Fabrice Crain III, MD [address] [place] [address] [place] [address] 04/05/2024 Fabrice Crain Malignant neoplasm o f [...] a day Zoryve 0.3 % 1 application Bike Shop Manager ally Once a day Benzonatate 100 MG TAKE 1 CAPSULE BY [facility] EVERY 8 HOURS NEEDED FOR COUGH [...] check-up Provider Name:Fabrice Crain, 10/04/2024 11:00:00 AM, [address] [place] [address], [address], Progress Notes * KHOA CANDELARIOADOB:[birth year] (79 yo F)Acc No.[id number]:04/05/2024 Progress Notes Patient:?TREY CANDLEARIO Provider:?Fabrice Crain MD :1945???Age:79 Y???Sex:Female D ate:04/05/2024 Address:[address] [place] [address] [id number] Pcp:Dannie Huang MD Subjective: * Chief Complaints: [...] Crain MD Date:?06/2023 Generated for Printi ng/Glenysg/eTransmitting on:?07/25/2024 08:46 AM EST History and Physical [...]
--- OUTSIDE RECORDS SUMMARY | 2024-07-25 08:47 | XMS_ITS ---
Author Organization Fabrice Crain III, MD Address [address] [place] [address] [place] [address] Care Team Providers Care Dermatopathologist Name Role Phone Dannie Huang MD Primary Care Provider Fabrice Butcher [phone] REASON FOR VISIT Regarding CT Chest Social History Sex Assigned At : Social History Observation Description Sex Assigned At Female Encounters Encounter Location Date Provider Diagnosis Fabrice Crain III, MD [address] [place] [address] [facility] [place] [address] 10/16/2023 Fabrice Crain Plan Of Treatment Next Appt Details Provider Name:Fabrice Crain, 10/04/2024 11:00:00 AM, [address] [place] [address] STEFANY BROWN, [place], [address], Progress Notes * GEMMA BROWNB:[birth year] (78 yo F)Acc No.[id number]:10/16/2023 Patient:?TREY BROWN :1945???Age:78 Y???Sex:Female Address:[address] [facility] [place], [address] * true * Date:? Generated for Printi ng/Faxing/eTransmitting on:?07/25/2024 08:46 AM EST
--- OUTSIDE RECORDS SUMMARY | 2024-07-25 08:47 | XMS_ITS | Clinical Summary ---
Author Organization [facility] Address [address] [place] [address] Phone Care Team Providers Care Boiler Tester Name Role Phone Dannie Huang MD Primary Care Provider [phone] Allergies Active Allergy Reactions Criticality Noted Date [...] general and how their size shape and traveler changer time affect her level of suspicion for [...] N/A PROCEDURE: HISTORICAL COLONOSCOPY ESOPHAGOGASTRODUODENOSCOPY N/A PROCEDURE: DC ESOPHAGOGASTRODUODENOSCOPY TRANSORAL DIAGNOSTIC CHOLECYSTECTOMY N/A PROCEDURE: HISTORICAL CHOLECYSTECTOMY TUBAL LIGATION PROCEDURE: HISTORICAL TUBAL LIGATION OTHER SURGICAL HISTORY 04/07/2023 Left PROCEDURE: DC THORACOSCOPY W/THERA WEDGE RESEXN INITIAL UNILAT; COMMENT: [...] (CMS/HCC) DX:DM2 (diabetes mellitus, t ype 2) ([facility]) Anemia DX:Anemia Mild intermittent asthma, uncomplicated [...] Upcoming Encounters Date Type Department Care Team ([facility] Contact Info) Description 10/31/2024 9:00 AM EDT Office Visit Thoracic Surgery - [facility] [address] [facility] [address] [place] [phone] Cata Lebron PA [address] [place] [address], [address] [address] Health Maintenance Due Date Last Done Comments [...] age to complete this topic Insurance MEDICARE [facility] Care Teams Boiler Tester Relationship Specialty Start Date End Date Dannie Huang MD [address] [place] [address] [address] [place], [place] PCP - General 03/22/18
== END 2024-07-24 08:22 | disposition home or self-care (01) ==
LOC: HO.HOSX 08:21
PROVIDERS: Visit Provider Physician Assistant
DX: M25.511 Pain in right shoulder (principal); M75.101 Unspecified rotator cuff tear or rupture of right shoulder, not specified as traumatic; E11.9 Type 2 diabetes mellitus without complications
CPT/HCPCS: 20610; 73030; 99202; J1010; J2003

== ENCOUNTER 2024-07-24 09:41 | Outpatient (AMB) | payer MEDICARE, OTHER, SELFPAY ==
--- NOTE | 2024-07-24 09:59 | MHC.OFFVIS ---
Vital Signs 07/24/24 10:03 Height 5 ft 4 in Weight 157 lb BMI 26.9 Handedness Right Intake Visit Reasons: New prob-RT shoulder pain Intake Note: Julienne is a 79 year old right hand dominant female who presents today for a evaluation of her right shoulder pain. Patient reports ongoing pain for a couple weeks. She states that her pain is on the lateral aspect of the shoulder and it radiates up to her neck and moves down to her wrist. Patient mentions that her pain is worse when she is reaching for her back and lifting her arm and at night. She has tried and failed topical cream, NSAIDs. Allergies niacin [Niacin] Allergy (Mild, Verified 07/24/24 10:02) RASH lactose [Lactose] Adverse Reaction (Mild, Verified 07/24/24 10:02) DIARRHEA atorvastatin [Lipitor] Adverse Reaction (Unknown, Verified 07/24/24 10:02) Unknown celecoxib [Celebrex] Adverse Reaction (Unknown, Verified 07/24/24 10:02) Unknown simvastatin Adverse Reaction (Unknown, Verified 07/24/24 10:02) Unknown HPI HPI New prob-RT shoulder pain: Details: Ms. Candelario is a 79-year-old right-hand dominant female who presents today for a evaluation of right shoulder pain. Patient reports ongoing pain for a couple weeks. She states that her pain is on the lateral aspect of the shoulder and it radiates up to her neck and moves down to her wrist. Patient mentions that her pain is worse when she is reaching for her back and lifting her arm and at night. She denies any acute injury or trauma. She does report that she has been moving and doing a lot of repetitive motion and lifting. She has tried and failed topical cream, NSAIDs. FORMERLY [facility] Medical History Peptic ulcer Lung cancer Psoriasis Type 2 diabetes mellitus GERD (gastroesophageal reflux disease) Osteopenia Pulmonary nodule Depression Fibromyalgia IBS (irritable bowel syndrome) High cholesterol HTN (hypertension) Chronic cough Allergic rhinitis Cough due to bronchospasm Surgical History Hx of bladder repair surgery S/P lobectomy of lung History of tubal ligation History of esophagogastroduodenoscopy (EGD) History of laparoscopic cholecystectomy History of colonoscopy Family History Father Myocardial infarction Mother Diabetic coma Sister No problems noted. 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 Pain with cross-body reach. 3/5 strength with empty can. NVI. Office Procedures AMB Joint Injection/Aspiration Joint Injection/Aspiration Primary Site: right shoulder Prep: site was prepped using aseptic technique, ethochloride spray was applied and injection warnings given Injected: 40 mg of, DepoMedrol, with 8 mL of (2% plain lidocaine) and in the subcromial space Procedure: The patient tolerated the procedure well, but had some pain with the injection and there was some relief with the local anesthesia Coding 19199 - Large joint Procedure code (CPT) selection complete Assessment & Plan Assessment & Plan (1) Painful arc syndrome of right shoulder: Code(s): M75.101 - Unspecified rotator cuff tear or rupture of right shoulder, not specified as traumatic Category: Medical (2) Diabetes: Code(s): E11.9 - Type 2 diabetes mellitus without complications Category: Medical Plan Ms. Candelario is a 79-year-old right-hand dominant female who presents today for a evaluation of right shoulder pain. Patient reports ongoing pain for a couple weeks. She states that her pain is on the lateral aspect of the shoulder and it radiates up to her neck and moves down to her wrist. Patient mentions that her pain is worse when she is reaching for her back and lifting her arm and at night. She denies any acute injury or trauma. She does report that she has been moving and doing a lot of repetitive motion and lifting. She has tried and failed topical cream, NSAIDs. While the office today, we discussed the role of cortisone injection. The patient was offered a cortisone injection in the right shoulder with 40 mg of DepoMedrol. The patient was explained the risks, benefits, and alternatives to receiving this injection. After receiving consent for the injection, the patient had the procedure done while in the office today. The patient tolerated the procedure well with no complications. Due to the patient?s history of diabetes, they were instructed to monitor their blood glucose level. The patient was informed that they could see a rise in their numbers and if the numbers became too high, they were instructed to call their PCP. The patient was also informed that they could have facial flushing as a side effect of the injection, but this will pass. In addition, I also recommended the patient start physical therapy. She is amenable to this plan and therefore a order has been placed while in the office today. I also sent a prescription for Celebrex 200 mg to be taken p.o. b.i.d. to assist with inflammation. Of note, the patient reports that she is having left hip pain and points to the area of the greater trochanteric bursa. She has tenderness to palpation over this area. She will schedule an evaluation in 1 week with possible cortisone injection, sooner if needed. Follow-up will be p.r.n. for the shoulder, or sooner if needed. X-rays of the right shoulder which were obtained while in the office today and were reviewed by me, Jackie Goodwin PA-C, revealed no acute fracture dislocation. Orders: Orders XR shoulder RT min 2V Today M25.519 - Pain in unspecified shoulder Medications: New celecoxib (Celebrex) 200 mg PO BID 60 caps 0RF 30 days Coding Level of Care Code New Pt Level 4 (09057) Diagnoses Painful arc syndrome of right shoulder M75.101 Diabetes E11.9 CPT Codes Coding - 89139 Large joint: 41766 - Large joint ([id number])
--- OUTSIDE RECORDS SUMMARY | 2024-07-24 10:01 | XMS_ITS ---
Author Organization [facility] Address [address] [place] [address] Care Team Providers Care Dining Services Manager Name Role Phone Dannie Huang MD Primary Care Provider Fabrice Smiley [phone] REASON FOR VISIT abdominal pain Encounters Encounter Location Date Provider Diagnosis [facility] [address] [place] [address] 08/29/2023 Fabrice Blanchard PLAN OF TREATMENT No Information
--- OUTSIDE RECORDS SUMMARY | 2024-07-24 10:01 | XMS_ITS ---
Author Organization [facility] Address [address] [place] [address] Care Team Providers Care Fraud Representative Name Role Phone Dannie Huang MD Primary Care Provider Fabrice Smiley [phone] REASON FOR VISIT results of procedure Encounters Encounter Location Date Provider Diagnosis [facility] [address] [place] [address] 11/03/2023 Fabrice lBanchard PLAN OF TREATMENT No Information
--- OUTSIDE RECORDS SUMMARY | 2024-07-24 10:02 | XMS_ITS ---
Author Organization [facility] Address [address] [place] [address] Care Team Providers Care Cissp Name Role Phone Dannie Huang MD Primary Care Provider Unavaila Radha Vizcaino Unavailable [phone] Param Syed Unavailable [phone] Allergies Allergen (clinical drug ingredient) Drug/Non Drug Allergy documented on EMR Reaction Allergy Type Onset Date Status Niacin rash Drug Allergy Active Cortisone elevated [...] 024 Encounters Encounter Location Date Provider Diagnosis [facility] [address] [place] [address] 02/22/2024 Param Syed Tinea unguium B35.1 ; [...] Reason: Provider Name:Radha little, 09/26/2024 03:45:00 PM, [address] [place] [address], [phone], Procedure Notes * Category Sub-Category Detail Notes [...] as necessary. Patient chooses, no pharmaceutical tx (64673) Keratoma Treatment Parring or Cutting o f Benign Hyperkeratotic Lesion(s) 88542 ( >4 Lesions) - The Benign hyperkeratotic lesions, as described above were pared, and/or cut utilizing a sterile #15 blade, tissue nippers, and/or dremel Progress Notes * Yesica CANDELARIO:[birth year] (79 yo F)Acc No.[id number]:02/22/2024 Progress Note Patient:?Julienne CANDELARIO Provider:?Param Syed DPM :1945???Age:78 Y???Sex:Female D ate:02/22/2024 Address:[address] [place] [address] [facility] Pcp:Dannie Huang MD Subjective: * Chief Complaints: * ??? Painful nail(s) aggrevat ed by shoes and causing difficulty standing/walking. * HPI: ???Painful Nails:?Pt States Last PCP Visit:?Date:?07/07/2023 ?Misc:?04/07/[address] Cheng at [facility] for lung ca nodule with no need [...] 2013 Lungbectomy 04/2023 * Hospitalization/Major Diagno stic Procedure:?[facility] for 2 day stay , for chest pain, high blood pressure and a head bump 03/2013C - Fell / concousin 01/07/17[facility] /PCP- Fell Broke Nose 05/21/21PCP - [...] status: . 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 * Medications:?TakingClobetaso l Emul Foam w/MoistCr Tylenol , Notes to Pharmacist: 2 every 8 hourAntibiotic , Notes to Pharmacist: 7 dayAlbuterol Sulfate HFA , Notes to Pharmacist: PRNAzelastine-Fluticasone , Notes to Pharmacist: PRNDelsym Carvedilol Hyoscyamine Sulfate LORazepam 1mg Omeprazole 10 MG Capsule Delayed Release 1 capsule Orally Once a day Pravastatin Sodium prednisoLONE Multivitamin Night Splint AFO - L1930 [facility] Diabetic Sh[facility] with 3 Pair Custom heat- molded multi-density innersoles for 1 year Dx: Voltaren 1 % Gel as directed Externally apply bid to left ankle Voltaren 1 % Gel as directed Externally Extra Depth Diabetic Shoes with 3 Pair Custom heat-molded multi-density innersoles for 1 year Dx: Taking Clobetasol Emul Foam w/MoistCr Taking Tylenol , Notes to Pharmacist: 2 every 8 hourTaking Antibiotic , Notes to Pharmacist: 7 dayTaking Albuterol Sulfate HFA , Notes to Pharmacist: PRNTaking Azelastine-Fluticasone , Notes to Pharmacist: PRNTaking Delsym Taking Carvedilol Taking Hyoscyamine Sulfate Taking LORazepam 1mg Taking Omeprazole 10 MG Capsule Delayed Release 1 capsule Orally Once a day Taking Pravastatin Sodium Taking prednisoLONE Taking Multivitamin Taking Night Splint AFO - L1930 as directed Taking ZyrTEC Taking Extra Depth Diabetic Shoes with 3 Pair Custom heat-molded multi-density innersoles for 1 year Dx: Taking Voltaren 1 % Gel as directed Externally apply bid to left ankle Taking Voltaren 1 % Gel as directed Externally Taking Extra Depth Diabetic Shoes with 3 Pair Custom heat-molded multi-density innersoles for 1 year Dx: Not-Taking/PRNPhysical Therapy . . . . 2-3x/week Work Note . . . . patient is disabled from work until December 15 2018 Extra Depth Diabetic Shoes with 3 Pair Custom heat-molded multi-density innersoles for 1 year Dx: Claritin Benzonatate 100 MG Capsule 1 capsule as needed Orally Three times a day Famotidine Rhinocort Allergy 32 MCG/ACT Suspension 1 spray in each nostril Nasally Once a day Montelukast Sodium Valsartan Advair HFA Losartan Potassium 25 MG Tablet Orally Zantac bid Calcium Lisinopril Vitamin D vitamin PriLOSEC 20 MG Capsule Delayed Release Orally 2 Tums Mylanta Gabapentin Medication List reviewed and reconciled with the patientNot-Taking/PRN Physical Therapy . . . . 2-3x/week Not-Taking/PRN Work Note . . . . patient is disabled from work until December 15 2018 Not-Taking/PRN Extra Depth Diabetic Shoes with 3 Pair Custom heat-molded multi-density innersoles for 1 year Dx: Not-Taking/PRN Claritin Not-Taking/PRN Benzonatate 100 MG Capsule 1 capsule as needed Orally Three times a day Not-Taking/PRN Famotidine Not-Taking/PRN Rhinocort Allergy 32 MCG/ACT Suspension 1 spray in each nostril Nasally Once a day Not-Taking/PRN Montelukast Sodium Not-Taking/PRN Valsartan Not-Taking/PRN Advair HFA Not-Taking/PRN Losartan Potassium 25 MG Tablet Orally Not-Taking/PRN Zantac bid Not-Taking/PRN Calcium Not- Taking/PRN Lisinopril Not-Taking/PRN Vitamin D Not-Taking/PRN vitamin Not-Taking/PRN PriLOSEC 20 MG Capsule Delayed Release Orally 2 Not-Taking/PRN Tums Not-Taking/PRN Mylanta Not-Taking/PRN Gabapentin Medication List reviewed and reconciled with the patient * Allergies:?Niacin: agusMertsoren christaino: elevated BP/ elevated BSyes[Allergies Verified] Objective: * Vitals:?Ht: 5 ft 4 in, Wt:15 7, BMI:26.95, Shoe size:7.5W, BP:120/80mm Hg, BS:110. * ???Past Orders: ???Lab:HEMOGLOBIN A1C (GLYCO HEMOGLOBIN) (Order Date - 05/15/2023) (Collection Date & Time - 04/05/2023) ? Value Reference Range ?HEMOGLOBIN A1C % (HH) 6.2 * Examination: ???Ophthalmology Referral: ?DIABETES EYE EXAM?Neurological: ?SENSORY:? Neurological exam demonstrates, reduced vibration sensation, B/L, at Forefoot-slight, Neurological exam demonstrates pop lateral left ankle, 5.07 monofilament test performed at plantar aspects of 5 varied sites per foot shows sensation, reduced , B/L, Neurological exam demonstrates pop plantar right 2nd mtpj.?Vascular: ?DP PULSES (B):? 2/4, B/L.?PT PULSES (B):? 1/4, B/L.?CAPILLARY FILL TIME:?3 secs. per digit, b/l.?TROPHIC CONDITION-TEXTURE/ELASTICITY/TURGOR/HAIR GROWTH (B):?decreased, B/L.?TEMPERTURE GRADIENT (C):?decreased, B/L.?EDEMA (C):? 1/4, B/L, Ankle(s).?CLAUDICATION (C):?negative, b/l .?REST PAIN:?negative.?CLUBBING:?absent.?Nails: ?NAILS are:?elongated,overgrown,dystrophic,greater than 3mm thick,discolored and friable [...] border, T6, Bilateral nail borders, TA, T5, T1.?General Examination: ?FOOT EXAM:? Assessment: * Assessment: 1.?Tinea unguium - B35.1 (Pr imary)???2.?Type 2 diabetes mellitus with diabetic polyneuropathy - E11.42???3.?Pain in right toe(s) - M79.674???4.?Pain in left toe(s) - M79.675???5.?Hallux valgus (acquired), left foot - M20.12???6.?Hallux valgus (acquired), right foot - M20.11???7.?Ingrowing nail - L60.0 (Primary)???8.?Primary osteoarthritis, left ankle and foot - M19.072???9.?Metatarsalgia, right foot - M77.41??? Plan: * Treatment: * Procedures:?Debride Nail 6-10:?Nail debridement?Nail debridement performed extensively to reduce/remove overall nail length and girth, subungual debris, and necrotic tissue, by manual and electrical means with use of a nail nipper and/or dremel, to more viable healthy nail plate or bed tissue 6-10. Silver nitrate used for any petechial bleeding as necessary. Patient chooses, no pharmaceutical tx (99144).?Keratoma Treatment:?Parring or Cutting of Benign Hyperkeratotic Lesion(s)?40821 ( >4 Lesions) - The Benign hyperkeratotic lesions, as described above were pared, and/or cut utilizing a sterile #15 blade, tissue nippers, and/or dremel.? * Procedure Codes:?54582 DEBRI DE NAIL, 6 OR MORE, Modifiers: XS 31454 TRIM SKIN LESIONS, OVER 4, Modifiers: XS * Follow Up:?3 Months * Images: * Sign off status: Completed true * Provider:?Param Syed DPM Date:? 024 Generated for Bryan lee/Emily/Sher on:?07/24/2024 10:01 AM EST History and Physical Notes * [...] Misc: 04/07/[address] Cheng at [facility] for lung ca nodule with no need [...] 1, B/L , Heel(s), B/L ; lipoma akrl ankles left more than right General Examination FOOT EXAM: Lower Extrem ity Neurological Exam performed:: Yes Date: 02/22/2024 Ophthalmology Referral DIABETES EYE EXAM Diabetic Retinopa thy Screening:: No Findings of Diabetic Eye Exam:: [...]
--- OUTSIDE RECORDS SUMMARY | 2024-07-24 10:02 | XMS_ITS | Patient Health Record ---
Author Organization Fabrice Crain III, MD Address [address] [address] Care Team Providers Care Meteorological Engineer Name Role Phone Dannie Huang MD Primary Care Provider Fabrice Butcher Unavailable [phone] Allergies Allergen (clinical drug ingredient) Drug/Non Drug Allergy documented on EMR Reaction Allergy Type Onset Date Status cortisone Cortisone elevated BP and Glucose Drug Allergy Active Niacin Unknown Drug Allergy Active Lactose Unknown Drug Allergy Active Results Component Value Reference Range Notes Complete Blood Count Auto Di ff Reviewed date:11/14/2023 05:01:48 PM Interpretation: Performing Lab:[facility], [address] [place] [phone] Notes/Report: White Blood Count 5.5 4.8-10.8 X10*3/uL [...] NRBC Abs Auto 0.000 0.0-0.012 X10*3/uL Comprehensive [place]. Panel Fa st Reviewed date:11/14/2023 05:01:48 PM Interpretation: Performing Lab:[facility], [address] [place] [phone] Notes/Report: Sodium 143 135-145 mmol/L Potassium 4.1 3.3-5.1 mmol/L Chloride 107 96-108 mmol/L Carbon Dioxide 24 22-29 mmol/L Anion Gap 16 12-20 Blood Urea Nitrogen 13 9-16 mg/dL Creatinine 0.66 0.5-1.4 mg/dL Estimated Glomerular Filt Rate > 60 NOTE: For -Austrian individuals, multiply the result by 1.210. Chronic [...] Panel Reviewed date:11/14/2023 05:01:48 PM Interpretation: Performing Lab:[facility], [address] [place] [phone] Notes/Report: Triglycerides 165 <150 mg/dL Desirable Triglyceride: [...] day Active Zoryve 0.3 % 1 application Care Partner ally Once a day Active Benzonatate 100 [...] Problem Status W/U Status Risk Notes Problem 6081144 Former smoker (Z87.891) Active confirmed She seems highly motivated not to smoke and we discussed strategies for prevention of relapse in times of stress and illness. Problem 831954832 Fibromyalgia (M79.7) Active confirmed She has occasional low-grade abdominal discomfort. Problem 550968364409 Type 2 diabetes mellitus with other specified complication (E11.69) Active confirmed She will continue on current therapy. Her fasting glucose levels have been under 150. She has been compliant with her medication. Problem 868828341 Other obesity (E66.8) Active confirmed Her body mass index is 30. We have discussed her weight loss strategy. We discussed diet and nutrition. We made a plan to lose weight at a rate of one half of a pound per week. Problem 24692369 Hyperlipidemia, unspecified (E78.5) Active confirmed Her lipids are well controlled and she will continue on her current regimen. Problem 96410175 Age-related osteoporosis without current pathological fracture (M81.0) Active confirmed She is asymptomatic at this time. Problem 91185799 Essential hypertension (I10) Active confirmed Her blood pressure is controlled and no change in her regimen as necessary. Problem 496395274 Gastroesophageal reflux disease without esophagitis (K21.9) Active confirmed She has occasional reflux, well-controll ed medication and no other therapy is necessary at this time. Problem Anemia (427601991) Anemia, unspecified type (D64.9) Active confirmed She has a mild microcytic anemia with a ferritin over 100. The microcytosis is new. She'll be followed carefully. It does not require treatment at this time. 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 Vital Signs Heart Rate 79 /min 04/05/2024 Temperature 97.4 degrees Fahrenheit 04/05/2024 Blood pressure diastolic 77 mm Hg 04/05/2024 Height 60 in 04/05/2024 Blood pressure systolic 138 mm Hg 04/05/2024 Weight 161 lbs 04/05/2024 BMI 31.44 kg/m2 04/05/2024 Encounters Encounter Location Date Provider Diagnosis Fabrice Crain III, MD [address] [place] [address] [place] [address] 07/28/2023 Fabrice Brandtrne Malignant neoplasm o f lower lobe of left lung C34.32 ; Essential hypertension I10 ; Fibromyalgia M79.7 ; Type 2 diabetes mellitus with other specified complication E11.69 ; Hyperlipidemia, unspecified E78.5 ; Age-related osteoporosis without current pathological fracture M81.0 ; Former smoker Z87.891 ; Overweight E66.3 and Gastroesophageal reflux disease without esophagitis K21.9 Fabrice Crain III, MD [address] [place] [address] [place] [address] 12/01/2023 Fabrice Crain Malignant neoplasm o f lower lobe of left lung C34.32 ; Essential hypertension I10 ; Fibromyalgia M79.7 ; Type 2 diabetes mellitus with other specified complication E11.69 ; Hyperlipidemia, unspecified E78.5 ; Age-related osteoporosis without current pathological fracture M81.0 ; Gastroesophageal reflux disease without esophagitis K21.9 ; Former smoker Z87.891 and Other obesity E66.8 Fabrice Crain III, MD [address] [place] [address] [place] [address] 04/05/2024 Fabrice Crain Malignant neoplasm o f lower lobe of left lung C34.32 ; Former smoker Z87.891 ; Gastroesophageal reflux disease without esophagitis K21.9 ; Essential hypertension I10 ; Type 2 diabetes mellitus with other specified complication E11.69 ; Hyperlipidemia, unspecified E78.5 and Age-related osteoporosis without current pathological fracture M81.0 Fabrice Crain III, MD [address] [place] [address] [place] [address] 10/11/2023 Fabrice Crain Malignant neoplasm o f lower lobe of left lung C34.32 Fabrice Crain III, MD [address] [place] [address] [place] [address] 10/16/2023 Fabrice Crain Assessments Encounter Date Diagnosis (ICD Code) Assessment Notes Treat ment Notes Treatment Clinical Notes 07/28/2023 Essential hypertensi on (ICD-10 - I10) [...] healed and the pain is slowly resolving 07/28/2023 Fibromyalgia (ICD-10 - M79.7) She has occasional low-grade abdominal discomfort. 12/01/2023 Fibromyalgia (ICD-10 - M79.7) She has occasional low-grade abdominal discomfort. 04/05/2024 Gastroesophageal reflux disease without esophagitis (ICD-10 - K21.9) She has occasional reflux, well-controlled medication and no other therapy is necessary at this time. 10/11/2023 Malignant neoplasm o f lower lobe of left lung (ICD-10 - C34.32) 07/28/2023 Type 2 diabetes mellitus with other [...] change in her regimen as necessary. 07/28/2023 Hyperlipidemia, unspecified (ICD-10 - E78.5) Her [...] She has been compliant with her medication. 07/28/2023 Age-related osteoporosis without current pathological fracture (ICD-10 - M81.0) She is asymptomatic at this time. 12/01/2023 Age-related osteoporosis without current pathological fracture (ICD-10 - M81.0) She is asymptomatic at this time. 04/05/2024 Hyperlipidemia, unspecified (ICD-10 - E78.5) Her lipids are well controlled and she will continue on her current regimen. 07/28/2023 Former smoker (ICD-1 0 - Z87.891) [...] She is asymptomatic at this time. 07/28/2023 Overweight (ICD-10 - E66.3) Her body [...] Details Provider Name:Fabrice Crain, 10/04/2024 11:00:00 AM, [address] [place] [address] , [facility] [address], [place], [address], Insurance Providers Payer Name Payer Address Payer Phone Subscriber Number Group Number Insured Name Patient Relationship to Insured Coverage Start Date Coverage End Date MEDICARE NGS [address] [place] [phone] [id number] GIANNA ZTREY Self - patient is the insured [address] [place] [address] [phone] [id number] TREY TEE Self - patient is the insured Medical (General) History Medical History History ICD Code Essential hypertension I10 Fibromyalgia M79.7 hiatal hernia hyperlipidemia osteoarthritis diabetes mellitus essential hypertension osteoporosis GERD overweight former smoker 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 Surgical History Surgery Date(Month/Year) Lung surgery, Left lower lobe 04/07/2023 colonoscopy, Dr. Blanchard 2013 Bladder suspention 1992 choleycystectomy 2005 Tubal ligation 1985 Hospitalization History Reason Date(Month/Year) Hospitalization for ' s parkinson's, alzheimer's, and dementia - september, current year
--- OUTSIDE RECORDS SUMMARY | 2024-07-24 10:02 | XMS_ITS ---
Author Organization [facility] Address [address] [place] [address] Care Team Providers Care Spool Maker Name Role Phone Dannie Huang MD Primary Care Provider Fabrice Smiley [phone] REASON FOR VISIT screening,hx polyps,gerd PROBLEMS Problem Type ICD Code Onset Dates Problem Status W/U Status Risk SNOMED Code Notes Problem Diverticulosis of large intestine without perforation or abscess without bleeding (K57.30) Active confirmed Diverticul ar disease of colon (371852238) Problem Gastro-esophageal reflux disease without esophagitis (K21.9) Active confirmed Gastro-esophage al reflux disease without esophagitis (634152289) Encounters Encounter Location Date Provider Diagnosis [facility] [place] Out[place] [address] [place] [phone] 10/27/2023 Fabrice Blanchard Encounter for scre ening [...]
--- OUTSIDE RECORDS SUMMARY | 2024-07-24 10:02 | XMS_ITS | Patient Health Record ---
Author Organization [facility] Address [address] [place] [address] Care Team Providers Care Full Stack Python Developer Name Role Phone Dannie Huang MD Primary Care Provider Fabrice Smiley [phone] ALLERGIES Allergen (clinical drug ingredient) Drug/Non Drug Allergy documented on EMR Reaction Allergy Type Onset Date Status lactose Lactose (Intolerance) Unknown Drug Allergy Active Niacin rash Drug Allergy Active cortizone injections (uncoded) elevated bs and bp Allergy Active RESULTS Component Value Reference Range Notes Glucose, Whole Blood Reviewed date:10/27/2023 05:59:32 PM Interpretation: Performing Lab:[address] [address] Notes/Report: Glucose, Whole Blood 154 60-115 mg/dL METER # : [id number] Pathology Reviewed date:11/05/2023 09:43:00 PM Interpretation: Performing Lab:[address] [address] Notes/Report: REASON FOR REFERRAL No Information MEDICATIONS [...] 20 MG TAKE 1 CAPSULE BY [facility] TWICE A DAY Oral for 30 Active [...] confirmed Gastro-esophage al reflux disease without esophagitis (975634035) Problem Encounter for screening for malignant neoplasm of colon (Z12.11) Active confirmed 196357727 Problem History of adenomatous polyp of colon (Z86.010) Active confirmed 853192428 Problem Diverticulosis of large intestine without perforation or abscess without bleeding (K57.30) Active confirmed Diverticul ar disease of colon (210050424) Problem Generalized abdominal pain (R10.84) Active confirmed 274522290 Problem Gastroesophageal reflux disease, esophagitis presence not specified (K21.9) Active confirmed 930150015 Problem Irritable bowel syndrome with both constipation and diarrhea (K58.2) Active confirmed 99700368 Problem Chronic cough (R05.3) Active confirmed Chronic cough (12447901) VITAL SIGNS Temperature 97.8 degrees Fahrenheit 08/01/2023 Blood pressure diastolic 00 mm Hg 08/01/2023 Height 64 in 08/01/2023 Blood pressure systolic 00 mm Hg 08/01/2023 Weight 162 lbs 08/01/2023 BMI 27.80 kg/m2 08/01/2023 Encounters Encounter Location Date Provider Diagnosis [facility] [place] [address] [place] [phone] 10/27/2023 Fabrice Blanchard Encounter for screen ing colonoscopy Z12.11 ; Colon polyps K63.5 ; Diverticulosis of large intestine without perforation or abscess without bleeding K57.30 ; Other hemorrhoids K64.8 ; Hiatal hernia K44.9 and Gastro-esophageal reflux disease without esophagitis K21.9 [facility] [address] [place] [address] 08/29/2023 Fabrice Blanchard [facility] [address] [place] [address] 08/01/2023 Fabrice Blanchard Gastroesophageal ref lux disease, esophagitis presence not specified K21.9 ; History of adenomatous polyp of colon Z86.010 ; Encounter for screening for malignant neoplasm of colon Z12.11 and Chronic cough R05.3 [facility] [address] [place] [address] 11/03/2023 Fabrice Blanchard ASSESSMENTS Encounter Date Diagnosis [...] OF [place] [address] [place] [address] [id number] TREY TEE Self - patient is the insured [facility] [address] [place] [address] [id number] TREY TEE Self - patient is the insured MEDICAL (GENERAL) HISTORY Medical History History ICD Code Irritable bowel syndrome ? hx of ulcer disease in the Colonoscopy 10-14-2008-negati ve except diverticulosis and internal hemorrhoids Colon polyps-tubular adenomas removed in 2001 and 2004 GERD--EGD in 1994 neg-Bx neg for H.pylor i NIDDM fibromyalgia hyperlipidemia hypertension Denies IA,CVA,Lung disease,renal disease EGD in 10/2012--neg except for a small HH --no celiac disease, no H.pylori Colonoscopy 08/2013 and in --negative except for sigmoid diverticulosis and internal hemorrhoids Lung cancer with surgery as below in 2022 Surgical History Surgery Date(Month/Year) bladder suspension 1992 cholecystectomy 2003 tubal ligation 1985 LLL lung resection for cancer-Dr. Shaffer at [facility] 04/07/2023
--- OUTSIDE RECORDS SUMMARY | 2024-07-24 10:02 | XMS_ITS ---
Author Organization [facility] Address [address] [place] [address] Care Team Providers Care Automatic Fancy Machine Operator Name Role Phone Dannie Huang MD Primary Care Provider Radha Last Unavailable [phone] Param Syed [phone] REASON FOR VISIT sooner appt Encounters Encounter Location Date Provider Diagnosis [address] [address] 01/04/2024 Param Syed Plan Of Treatment Next Appt Details Provider Name:Radha little, 09/26/2024 03:45:00 PM, [address] [place] [address], [address], Progress Notes * Jesse CANDELARIOaDOB:[birth year] (79 yo F)Acc No.[id number]:01/04/2024 Progress Note Patient:?Julienne CANDELARIO Provider:?Param Syed DPM :1945???Age:78 Y???Sex:Female D ate:01/04/2024 Address:[address] [place] [address], [phone] Pcp:Dannie Huang MD Subjective: * Chief Complaints: * ???1. Sooner appt. * Medical History:? Objective: * Vitals:? Assessment: Plan: * Treatment: * Images: * The named appointment provid er may or may not be the originator of this progress note, and it is not deemed complete until electronically signed by the appointment provider. Sign off status: Pending * Provider:Carlton Syed DPM Date:? 024 Generated for Bryan lee/Emily/Sher on:?07/24/2024 10:01 AM EST
--- OUTSIDE RECORDS SUMMARY | 2024-07-24 10:02 | XMS_ITS ---
Author Organization Fabrice Crain III, MD Address [address] [place] [address] [place] [address] Care Team Providers Care Settlement Worker Name Role Phone Dannie Huang MD Primary Care Provider Fabrice Butcher [phone] REASON FOR VISIT Regarding CT Chest Social History Sex Assigned At : Social History Observation Description Sex Assigned At Female Encounters Encounter Location Date Provider Diagnosis Fabrice Crain III, MD [address] [place] [address] [address] [facility] [address] 10/16/2023 Fabrice Crain Plan Of Treatment Next Appt Details Provider Name:Fabrice Crain, 10/04/2024 11:00:00 AM, [address] [place] [address] [address], [place], [address], Progress Notes * GEMMA BROWNB:[birth year] (78 yo F)Acc No.[id number]:10/16/2023 Patient:?TREY BROWN :1945???Age:78 Y???Sex:Female Address:[address] [place], [address] * true * Date:? Generated for Printi ng/Faxing/eTransmitting on:?07/24/2024 10:02 AM EST
--- OUTSIDE RECORDS SUMMARY | 2024-07-24 10:02 | XMS_ITS ---
Author Organization [facility] [place] Address [address] [facility] [place] [address] Care Team Providers Care Fruit Trimmer Name Role Phone Dannie Huang MD Primary Care Provider Radha Last Unavailable [phone] Allergies Allergen (clinical drug ingredient) Drug/Non Drug [...] Polyneuropathy due to diabetes mellitus type I (532404008) Type 1 diabetes mellitus with diabetic polyneuropathy (E10.42) Active confirmed Vital Signs Height 5 ft 4 in in 06/03/2024 Weight 157 lbs 06/03/2024 BMI 26.95 kg/m2 06/03/2024 Blood pressure systolic 111 mm Hg 06/03/20 24 Blood pressure diastolic 67 mm Hg 024 Procedures Procedure Date Ordered Date Performed Result Body Sit e 51614-UZMFOVX NAIL, 6 OR MORE 06/03/2024 N/A 32584-WFJV SKIN LESIONS, OVER 4 06/03/2024 N/A Encounters Encounter Location Date Provider Diagnosis [facility] [address] [place] [address] 06/03/2024 Radha Weir Type 2 diabetes mellitus with diabetic polyneuropathy E11.42 and Tinea unguium B35.1 Assessments Encounter Date Diagnosis (ICD Code) Assessment Notes Treatment Notes Treatment Clinical Notes Section Notes 06/03/2024 Type 2 diabetes mellitus with diabetic polyneuropathy (ICD-10 - E11.42) 06/03/2024 Tinea unguium (ICD-10 - B35.1) Plan Of Treatment Pending Test Test Name Order Date 01295-GPSEDZM NAIL, 6 OR MORE 06/03/2024 95986-UHON SKIN LESIONS, OVER 4 06/03/20 Next Appt Details Follow Up: 4 Months, Reason: Provider Name:Radha little, 09/26/2024 03:45:00 PM, [address] [place] [address], [place], [address], Procedure Notes * Category Sub-Category Detail Notes [...] use of a nail nipper and/or dremel-type pulp grinder feeder, to a more viable healthy nail plate [...] power dremel instrumentation by the [facility] - [address]55 Progress Notes * Ahsan CANDELARIOB:[birth year] (79 yo F)Acc No.[id number]:06/03/2024 Progress Note Patient:?Julienne CANDELARIO Provider:?Radha Weir DPM :1945???Age:79 Y???Sex:Female D ate:06/03/2024 Address:[address] [place] [address] Pcp:Dannie Huang MD Subjective: * Chief Complaints: [...] 1985endoscopy 2013Lungbectomy 04/2023 * Hospitalization/Major Diagno stic Procedure:?[facility] for 2 day stay , for chest pain, high blood pressure and a head bump 03/2013[facility] - Fell / concousin 01/07/17[facility]- Fell Broke Nose 05/21/21PCP - [...] status: . 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 * Medications:?TakingTussin Al legra Extra Depth Diabetic [...] use of a nail nipper and/or dremel-type pulp grinder feeder, to a more viable healthy nail plate [...] to maintain effectiveness in symptomatic relief - 10236.?Keratoma Treatment:?Parring or Cutting of Benign Hyperkeratotic Lesion(s)?(-57) [...] instrumentation by the physician of record - 79637.? * Procedure Codes:?34334 DEBRI DE NAIL, 6 OR MORE, Modifiers: XS 19288 TRIM SKIN LESIONS, OVER 4, Modifiers: XS * Follow Up:?4 Months * Images: * Sign off status: Completed true * Provider:?Radha Weir DPM Date:? Generated for Bryan lee/Emily/eTdebbiesmitting on:?07/24/2024 10:02 AM EST History and Physical Notes * [...]
--- OUTSIDE RECORDS SUMMARY | 2024-07-24 10:02 | XMS_ITS ---
Author Organization Fabrice Crain III, MD Address [address] [address] Care Team Providers Care Meat Team Member Name Role Phone Dannie Huang MD Primary Care Provider Fabrice Butcher Unavailable [phone] Allergies Allergen (clinical drug ingredient) Drug/Non Drug [...] Benzonatate 100 MG TAKE 1 CAPSULE BY [facility] EVERY 8 HOURS NEEDED FOR COUGH Oral Active Albuterol Sulfate HFA 108 (90 Base) MCG/ACT 1 puff as needed Inhalation every 4 hrs Active Zoryve 0.3 % 1 application Compounder ally Once a day Active LORazepam 1 [...] Problem Status W/U Status Risk Notes Problem 675196001 Other obesity (E66.8) Active confirmed Her body [...] Date Provider Diagnosis Fabrice Crain III, MD [address] [place] [address] [place] [address] 12/01/2023 Fabrice Crain Malignant neoplasm o f [...] Benzonatate 100 MG TAKE 1 CAPSULE BY [facility] EVERY 8 HOURS NEEDED FOR COUGH Oral Albuterol Sulfate HFA 108 (9 0 Base) MCG/ACT 1 puff as needed Inhalation every 4 hrs Zoryve 0.3 % 1 application Compounder ally Once a day LORazepam 1 MG [...] OV Provider Name:Fabrice Crain, 10/04/2024 11:00:00 AM, [address] [place] [address] [address], [place], [address], Progress Notes * JUVENTINO CANDELARIO:[birth year] (78 yo F)Acc No.[id number]:12/01/2023 Progress Notes Patient:?TREY CANDELARIO Provider:?Fabrice Crain MD :1945???Age:78 Y???Sex:Female D ate:12/01/2023 Address:[address] [place], [place] [address] Pcp:Dannie Huang MD Subjective: * Chief Complaints: [...] mg/dL) 52 (Ref Range: mg/dL) * Lab:[facility] [place] Pane l Fast * Order Date 11/13/2023 [...] Crain MD Date:?11/04 Generated for Bryan lee/Emily/Reneaitting on:?07/24/2024 10:02 AM EST History and Physical Notes * HPI (History of Present Illness) Category Sub-Category Detail Notes COVID-19 Screening Questions Have you had any new onset fever, chills, cough, congestion, sore throat, shortness of breath, muscle aches?: No Have you been exposed to the virus with n the last 10 days?: No Have you travelled internationally in [facility] last 10 days?: No Have [...]
[2024-07-24 10:03] VITALS: BMI 26.9
--- OUTSIDE RECORDS SUMMARY | 2024-07-24 10:03 | XMS_ITS | Clinical Summary ---
Author Organization [facility] Address [address] [place] [address] Phone Care Team Providers Care Medical Record Assistant Name Role Phone Dannie Huang MD Primary Care Provider [phone] Allergies Active Allergy Reactions Criticality Noted Date Comments Atorvastatin 03/17/2023 Celecoxib 03/17/2023 Lactose 03/15/2024 Gastritis Niacin Rash Low 03/17/2023 Simvastatin 03/17/2023 Medications carvediloL (COREG) 6.25 mg tablet Take 1 Tablet by mouth 2 times daily (with meals). Active guaiFENesin-cod eine (ROBITUSSIN-AC) 100-10 mg/5 mL syrup Take 5 mL by mouth 3 times daily as needed. Active hydrALAZINE (APRESOLINE) 25 mg tablet Take 1 Tablet by mouth 2 times daily. Active ipratropium-alb uteroL (DUONEB) 0.5-2.5 mg/3 mL nebulizer solution Inhale 3 mL into the lungs 4 times daily. 04/09/2023 Active loratadine (CLARITIN) 10 mg tablet Take 1 Tablet by mouth daily. Active LORazepam (ATIVAN) 1 mg tablet Take 1 Tablet by mouth every 6 hours as needed. Active omeprazole (PriLOSEC) [address] capsule Take 1 Capsule by mouth 2 times daily. Active pravastatin (PRAVACHOL) 80 mg tablet Take 1 Tablet by mouth daily. Active azelastine HCl (AZELASTINE NASL) 2 Sprays by Nasal route 2 times daily. Active albuterol HFA (PROAIR HFA ; PROVENTIL HFA ; VENTOLIN HFA) 90 mcg/actuation inhaler Inhale 2 Puffs into the lungs every 4 hours as needed. Active fluticasone propionate (FLOVENT HFA INHL) Inhale 1 Inhaler into the lungs 2 times daily. Active Active Problems Problem Noted Date Diagnosed Date History of lung cancer 04/22/2024 Assessment & Plan (04/22/2024 10:48 AM EST): Ms. Candelario is a 79-year-old female who had a robotic left lower lobe superior segmentectomy on April 07, 2023 for a stage 1A (pT1a, pN0) invasive lepidic adenocarcinoma. The patient's most recent surveillance chest CT scan performed on April 18, 2024 shows no new or worsening pulmonary nodule, or thoracic adenopathy, to suggest recurrence or new disease. She does have multiple stable subcentimeter pulmonary nodules including a 6 mm groundglass nodule in the right lower lobe. We will continue with routine chest CT surveillance the next of which will be in 6 months, October 2024. Patient will follow-up visit after. Patient educated call the office should she have any questions or concerns prior to that next appointment. Hypertension 10/19/2023 Overview (03/15/2024): Last Assessment & Plan: Patient had asymptomatic hypertension today at this visit with systolic blood pressures in the 190s. Patient stated that she was nervous and had to walk a long distance as she got lost in the hospital . After the good news about her CAT scan and she was able to relax some we retook her blood pressure where it remained elevated systolically in the 190s. The patient has no symptoms of malignant hypertension such as eye pain or headache. The patient said that she would go home, take her blood pressure medicine, and call her primary care physician if it remains elevated. Multiple pulmonary nodules 03/22/2023 Overview (03/15/2024): Last Assessment & Plan: 78-year-old woman former smoker with a mixed solid groundglass nodule in the superior segment of the left lower lobe which to me is concerning for a low-grade lipidic type lung cancer. I discussed with her her serial CAT scans which again to me shows this has been stable since October 2022 but there is an increased solid component when compared to April and May 2022. Again we discussed pulmonary nodules in general and how their size shape and waste/materials exchange specialist time affect her level of suspicion for malignancy. I also discussed the diagnosis, staging, and treatment of lung cancer which she seem to understand. I think there are 2 very reasonable options for her which I discussed including continued observation with a CAT scan in a year versus da Janelle wedge resection possible segmentectomy or lobectomy if it turns out to be malignancy. Even even if this is a lung cancer it is again very low-grade and slow-moving most likely which is why I think observation is not unreasonable. On the other side, its location is in an area where it should be easy to wedge a small piece out with minimal risk to find out what it is for sure. After discussing the risks and benefits of both of these options she just wants to know what it is and what time I will plan on booking her for da Janelle left lower lobe wedge resection possible segmentectomy or lobectomy. All questions were answered. Surgical History Surgery Date Site/Laterality Comments COLONOSCOPY N/A PROCEDURE: HISTORICAL COLONOSCOPY ESOPHAGOGASTRODUODENOSCOPY N/A PROCEDURE: ND ESOPHAGOGASTRODUODENOSCOPY TRANSORAL DIAGNOSTIC CHOLECYSTECTOMY N/A PROCEDURE: HISTORICAL CHOLECYSTECTOMY TUBAL LIGATION PROCEDURE: HISTORICAL TUBAL LIGATION OTHER SURGICAL HISTORY 04/07/2023 Left PROCEDURE: ND THORACOSCOPY W/THERA WEDGE RESEXN INITIAL UNILAT; COMMENT: LLL Medical History Medical History Date Comments Allergic rhinitis due to pollen DX:Allergic rhinitis due to pollen Chronic cough DX:Chronic cough Depression DX:Depression Fibromyalgia DX:Fibromyalgia GERD (gastroesophageal reflux disease) DX:GERD (gastroesophageal reflux disease) Mixed hyperlipidemia DX:Mixed hy perlipidemia HTN (hypertension) DX:HTN (hyper tension) IBS (irritable bowel syndrome) D X:IBS (irritable bowel syndrome) Osteopenia DX:Osteopenia Pulmonary nodule DX:Pulmonary no dule DM2 (diabetes mellitus, type 2) (CMS/HCC) DX:DM2 (diabetes mellitus, t ype 2) ([facility]) Anemia DX:Anemia Mild intermittent asthma, uncomplicated DX:Mild intermittent asthma, uncomplicated History of stomach ulcers DX:His tory of stomach ulcers Gallstones DX:Gallstones Osteoarthritis DX:Osteoarthriti s Mononeuropathy DX:Mononeuropath y Hiatal hernia DX:Hiatal hernia Family History Medical History Relation Name Comments Other: Other Brother Diabetes Father Heart attack Father Diabetes Mother No Known Problems Sister Relation Name Status Comments Brother Father Mother Sister Social History Tobacco Use Types Packs/Day Years Used Date Smoking Tobacco: Former Cigarettes 0.5 31 0 06/05/1961 - 06/05/1992 Smokeless Tobacco: Never Alcohol Use Standard Drinks/Week Comments Never 0 (1 standard drink = 0.6 oz pur e alcohol) Comments Unknown Sex and Gender Information Value Date Recorded Sex Assigned at Not on file Legal Sex Female 7:34 PM EST Gender Identity Not on file Sexual Orientation Not on file Obstetrics History Last Filed Vital Signs Vital Sign Reading Time Taken Comments Blood Pressure 166/81 04/22/2024 10:54 AM EST Pulse 73 04/22/2024 10:54 AM EST Temperature 36.6 ??C (97.9 ??F) 04/22/2024 10:[address] Respiratory Rate 16 04/22/2024 10:54 AM EST Oxygen Saturation 97% 04/22/2024 10:54 AM EST Inhaled Oxygen Concentration - - Weight 72.6 kg (160 lb) 04/22/2024 10:54 AM EST Height 162.6 cm (5' 4 ) 04/22/2024 10:54 AM EST Body Mass Index 27.46 04/22/2024 10:54 AM EST Plan of Treatment Upcoming Encounters Date Type Department Care Team ([facility] Contact Info) Description 10/31/2024 9:00 AM EDT Office Visit Thoracic Surgery - [place] [address] [facility] [address] [place] [id number] Cata Lebron PA [address] [place] [address], [address] [address] Health Maintenance Due Date Last Done Comments Diabetes: Annual GFR (Glomerular Filtration Rate) 1945 Diabetes: Annual Foot Exam 1956 Diabetes: Annual Retina Eye Exam 1955 Pneumococcal Vaccine: 50+ Years (1 of 2 - PCV) 1965 Zoster Vaccines (1 of 2) 1965 RSV Immunization Patients 60 + Years Old (1 - 1-dose 75+ series) 2021 Cholesterol Screening (Lipid Panel) 07/04/2023 Depression Screening 07/04/2023 Falls Risk Assessment 07/04/2023 Hepatitis C Screening 07/04/2023 Medicare Annual Wellness Visit 07/04/2023 Osteoporosis Screening (Bone Density Screening) 07/04/2023 Social Influencers of Health Screening 07/04/2023 Hypertension/CHF/CAD Annual BMP Blood Test 12/29/2023 Influenza Vaccine (#1) 2024 Diabetes: Annual Urine Albumin-Creatinine Ratio (uACR) 04/17/2024 Diabetes: Blood Sugar Contro l Test (HGBA1C) 04/17/2024 DTaP,Tdap,and Td Vaccines (2 - Td or Tdap) 05/21/2031 05/21/2021 COVID-19 Vaccine Completed 03/16/2024, 07/05/2021, 09/09/2020 HIB Vaccines Aged Out No longer eligi ble based on patient's age to complete this topic HPV Vaccines Aged Out No longer eligi ble based on patient's age to complete this topic Hepatitis A Vaccines Aged Out No long er eligible based on patient's age to complete this topic Hepatitis B Vaccines Aged Out No long er eligible based on patient's age to complete this topic IPV Vaccines Aged Out No longer eligi ble based on patient's age to complete this topic MMR Vaccines Aged Out No longer eligi ble based on patient's age to complete this topic Meningococcal ACWY Vaccine Aged Out N o longer eligible based on patient's age to complete this topic Meningococcal B Vacine Aged Out No lo nger eligible based on patient's age to complete this topic RSV Immunization Patients Under 20 months Aged Out No longer eligible b ased on patient's age to complete this topic Varicella Vaccines Aged Out No longer eligible based on patient's age to complete this topic Insurance MEDICARE [facility] Care Teams Medical Record Assistant Relationship Specialty Start Date End Date Dannie Huang MD [address] [place] [address] [address] [place], [place] PCP - General 03/22/18
--- OUTSIDE RECORDS SUMMARY | 2024-07-24 10:03 | XMS_ITS ---
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 Vital Signs Temperature 97.4 degrees Fahrenheit 04/05/20 24 Blood pressure systolic 138 mm Hg 04/05/20 24 Blood pressure diastolic 77 mm Hg 024 Heart Rate 79 /min 04/05/2024 Height 60 in 04/05/2024 Weight 161 lbs 04/05/2024 BMI 31.44 kg/m2 04/05/2024 Encounters Encounter Location Date Provider Diagnosis Fabrice Crain III, MD [address] [place] [address] [place] [address] 04/05/2024 Fabrice Crain Malignant neoplasm o f [...] a day Zoryve 0.3 % [address] Cleaning Equipment Operator ally Once a day Benzonatate 100 MG TAKE 1 CAPSULE BY [facility] EVERY 8 HOURS NEEDED FOR [...] check-up Provider Name:Fabrice Crain, 10/04/2024 11:00:00 AM, [address] [place] [address], [address], Progress Notes * KHOA CANDELARIOADOB:[birth year] (79 yo F)Acc No.[id number]:04/05/2024 Progress Notes Patient:?TREY CANDELARIO Provider:?Fabrice Crain MD :1945???Age:79 Y???Sex:Female D ate:04/05/2024 Address:[address] [place] [address] [id number] Pcp:Dannie Huang MD Subjective: * Chief Complaints: [...] Crain MD Date:?06/2023 Generated for Printi ng/Glenysg/eTransmitting on:?07/24/2024 10:02 AM EST History and Physical [...]
== END 2024-07-24 11:00 | disposition home or self-care (01) ==
PROVIDERS: PCP Internal Medicine; Visit Provider Physician Assistant
DX: M75.101 Unspecified rotator cuff tear or rupture of right shoulder, not specified as traumatic (principal); E11.9 Type 2 diabetes mellitus without complications
CPT/HCPCS: 20610; 99204

== ENCOUNTER → 2024-07-24 09:42 | Outpatient (BNV) | payer MEDICARE, OTHER, SELFPAY | PROVIDERS: Visit Provider Radiology Diagnostic Radiology | DX: M25.512 Pain in left shoulder (principal) | CPT/HCPCS: 73030 ==

== ENCOUNTER 2024-08-02 07:07 | Outpatient (REF) | payer MEDICARE, OTHER, SELFPAY ==
--- OUTSIDE RECORDS SUMMARY | 2024-08-03 07:10 | XMS_ITS ---
Author Organization [facility] Address [address] [place] [address] Care Team Providers Care Photography Assistant Name Role Phone Dannie Huang MD Primary Care Provider Radha Last Unavailable [phone] Param Syed [phone] REASON FOR VISIT sooner appt Encounters Encounter Location Date Provider Diagnosis [address] [address] 01/04/2024 Param Syed Plan Of Treatment Next Appt Details Provider Name:Radha little, 09/26/2024 03:45:00 PM, [address] [place] [address], [address], Progress Notes * Jesse CANDELARIOaDOB:[birth year] (79 yo F)Acc No.[id number]:01/04/2024 Progress Note Patient:?Julienne CANDELARIO Provider:?Param Syed DPM :1945???Age:78 Y???Sex:Female D ate:01/04/2024 Address:[address] [place] [address], [id number] Pcp:Dannie Huang MD Subjective: * Chief Complaints: [...] DPM Date:? 024 Generated for Bryan lee/Emily/Sher on:?08/03/2024 07:10 AM EST
--- OUTSIDE RECORDS SUMMARY | 2024-08-03 07:10 | XMS_ITS ---
Author Organization [facility] Address [address] [place] [address] Care Team Providers Care Furnace And Wash Equipment Operator Name Role Phone Dannie Huang MD Primary Care Provider Fabrice Smiley [phone] REASON FOR VISIT abdominal pain Encounters Encounter Location Date Provider Diagnosis [facility] [address] [place] [address] 08/29/2023 Fabrice Blanchard PLAN OF TREATMENT No Information
--- OUTSIDE RECORDS SUMMARY | 2024-08-03 07:10 | XMS_ITS ---
Author Organization [facility] Address [address] [place] [address] Care Team Providers Care Paper Testing Supervisor Name Role Phone Dannie Huang MD Primary Care Provider Fabrice Smiley [phone] REASON FOR VISIT results of procedure Encounters Encounter Location Date Provider Diagnosis [facility] [address] [place] [address] 11/03/2023 Fabrice Blanchard PLAN OF TREATMENT No Information
--- OUTSIDE RECORDS SUMMARY | 2024-08-03 07:10 | XMS_ITS ---
Author Organization [facility] Address [address] [place] [address] Care Team Providers Care Open Source Developer Name Role Phone Dannie Huang MD Primary Care Provider Unavaila Radha Vizcaino Unavailable [phone] Param Syed Unavailable [phone] Allergies Allergen (clinical drug ingredient) Drug/Non Drug [...] 024 Encounters Encounter Location Date Provider Diagnosis [facility] [address] [place] [address] 02/22/2024 Param Syed Tinea unguium B35.1 ; [...] Reason: Provider Name:Radha little, 09/26/2024 03:45:00 PM, [address] [place] [address], [phone], Procedure Notes * Category Sub-Category Detail [...] as necessary. Patient chooses, no pharmaceutical tx (22451) Keratoma Treatment Parring or Cutting o f Benign Hyperkeratotic Lesion(s) 99409 ( >4 Lesions) - The Benign hyperkeratotic lesions, as described above were pared, and/or cut utilizing a sterile #15 blade, tissue nippers, and/or dremel Progress Notes * Yesica CANDELARIO:[birth year] (79 yo F)Acc No.[id number]:02/22/2024 Progress Note Patient:?Julienne CANDELARIO Provider:?Param Syed DPM :1945???Age:78 Y???Sex:Female D ate:02/22/2024 Address:[address] [place], [place] [id number] Pcp:Dannie Huang MD Subjective: * Chief Complaints: * ??? Painful nail(s) aggrevat ed by shoes and causing difficulty standing/walking. * HPI: ???Painful Nails:?Pt States Last PCP Visit:?Date:?07/07/2023 ?Misc:?04/07/[address] Cheng at [facility] for lung ca nodule with [...] 2013 Lungbectomy 04/2023 * Hospitalization/Major Diagno stic Procedure:?[facility] for 2 day stay , for chest pain, high blood pressure and a head bump 03/2013C - Fell / concousin 01/07/17[facility] Care /PCP- Fell Broke Nose [...] status: . 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 * Medications:?TakingClobetaso l Emul Foam w/MoistCr Tylenol , Notes to Pharmacist: 2 every 8 hourAntibiotic , Notes to Pharmacist: 7 dayAlbuterol Sulfate HFA , Notes to Pharmacist: PRNAzelastine-Fluticasone , Notes to Pharmacist: PRNDelsym Carvedilol Hyoscyamine Sulfate LORazepam 1mg Omeprazole 10 MG Capsule Delayed Release 1 capsule Orally Once a day Pravastatin Sodium prednisoLONE Multivitamin Night Splint AFO - L1930 as directed yrTE Extra Depth Diabetic Shoes with 3 Pair [...] 6.2 * Examination: ???Ophthalmology Referral: ?DIABETES EYE EXAM?Diabetic Retinopathy Screening:?No ?Findings of Diabetic Eye Exam:?no retinopathy?Neurological: ?SENSORY:? Neurological exam demonstrates, reduced vibration sensation, B/L, at Forefoot-slight, Neurological exam demonstrates pop lateral left ankle, 5.07 monofilament test performed at plantar aspects of 5 varied sites per foot shows sensation, reduced , B/L, Neurological exam demonstrates pop plantar right 2nd mtpj.?Vascular: ?DP PULSES (B):? 2/4, B/L.?PT PULSES (B):? 14, B/L.?CAPILLARY FILL TIME:?3 secs. per digit, b/l.?TROPHIC [...] nail borders, TA, T5, T1.?General Examination: ?FOOT EXAM:?Lower Extremity Neurological Exam performed:?Yes ?Date?02/22/2024??? Assessment: * Assessment: 1.?Tinea unguium - B35.1 [...] as necessary. Patient chooses, no pharmaceutical tx (91790).?Keratoma Treatment:?Parring or Cutting of Benign Hyperkeratotic Lesion(s)?43011 ( >4 Lesions) - The Benign hyperkeratotic lesions, as described above were pared, and/or cut utilizing a sterile #15 blade, tissue nippers, and/or dremel.? * Procedure Codes:?19154 DEBRI DE NAIL, 6 OR MORE, Modifiers: XS 66867 TRIM SKIN LESIONS, OVER 4, Modifiers: XS * Follow Up:?3 Months * Images: * Sign off status: Completed true * Provider:?Param Syed DPM Date:? 024 Generated for Bryan lee/Emily/eTransmitting on:?08/03/2024 07:10 AM EST History and Physical Notes * [...] Misc: 04/07/[address] Cheng at [facility] for lung ca nodule with [...]
--- OUTSIDE RECORDS SUMMARY | 2024-08-03 07:11 | XMS_ITS ---
Author Organization Fabrice Crain III, MD Address [address] [place] [address] Care Team Providers Care Service Correspondent Name Role Phone Dannie Huang MD Primary Care Provider Fabrice Butcher Unavailable [phone] Allergies Allergen (clinical drug ingredient) Drug/Non Drug [...] Benzonatate 100 MG TAKE [address] [facility] EVERY 8 HOURS NEEDED FOR COUGH Oral Active Albuterol Sulfate HFA 108 (90 Base) MCG/ACT 1 puff as needed Inhalation every 4 hrs Active Zoryve 0.3 % 1 application Architectural Project Captain ally Once a day Active LORazepam 1 [...] Problem Status W/U Status Risk Notes Problem 972933221 Other obesity (E66.8) Active confirmed Her body [...] Date Provider Diagnosis Fabrice Crain III, MD [address] [place] [address] [place] [address] 12/01/2023 Fabrice Crain Malignant neoplasm o f [...] Benzonatate 100 MG TAKE [address] [facility] EVERY 8 HOURS NEEDED FOR COUGH Oral Albuterol Sulfate HFA 108 (9 0 Base) MCG/ACT 1 puff as needed Inhalation every 4 hrs Zoryve 0.3 % 1 application Architectural Project Captain ally Once a day LORazepam 1 MG [...] OV Provider Name:Fabrice Crain, 10/04/2024 11:00:00 AM, [address] [place] [address] [address], [place], [address], Progress Notes * JUVENTINO CANDELARIO:[birth year] (78 yo F)Acc No.[id number]:12/01/2023 Progress Notes Patient:?TREY CANDELARIO Provider:?Fabrice Crain MD :1945???Age:78 Y???Sex:Female D ate:12/01/2023 Address:[address] [place] [address] [facility] Pcp:Dannie Huang MD Subjective: * Chief Complaints: [...] mg/dL) 52 (Ref Range: mg/dL) * Lab:[facility] [place]. Pane l Fast * Order Date 11/13/2023 [...] Crain MD Date:?11/04 Generated for Bryan lee/Emily/Reneaitting on:?08/03/2024 07:10 AM EST History and Physical Notes * HPI (History of Present Illness) Category Sub-Category Detail Notes COVID-19 Screening Questions Have you had any new onset fever, chills, cough, congestion, sore throat, shortness of breath, muscle aches?: No Have you been exposed to the virus with n the last 10 days?: No Have you travelled internationally in [facility] last 10 days?: No Have you [...]
--- OUTSIDE RECORDS SUMMARY | 2024-08-03 07:11 | XMS_ITS | Patient Health Record ---
Author Organization Fabrice Crain III, MD Address [address] [facility] [place] [address] Care Team Providers Care Coffee Break Attendant Name Role Phone Dannie Huang MD Primary Care Provider Fabriec Butcher Unavailable [phone] Allergies Allergen (clinical drug ingredient) Drug/Non Drug Allergy documented on EMR Reaction Allergy Type Onset Date Status cortisone Cortisone elevated BP and Glucose Drug Allergy Active niacin Niacin Unknown Drug Allergy Active Lactose Unknown Drug Allergy Active Results Component Value Reference Range Notes Complete Blood Count Auto Di ff Reviewed date:11/14/2023 05:01:48 PM Interpretation: Performing Lab:[facility], [address] [place] [phone] Notes/Report: White Blood Count 5.5 4.8-10.8 X10*3/uL [...] NRBC Abs Auto 0.000 0.0-0.012 X10*3/uL [facility] [place]. Panel Fa st Reviewed date:11/14/2023 05:01:48 PM Interpretation: Performing Lab:[facility], [address] [place] [phone] Notes/Report: Sodium 143 135-145 mmol/L Potassium 4.1 3.3-5.1 mmol/L Chloride 107 96-108 mmol/L Carbon Dioxide 24 22-29 mmol/L Anion Gap 16 12-20 Blood Urea Nitrogen 13 9-16 mg/dL Creatinine 0.66 0.5-1.4 mg/dL Estimated Glomerular Filt Rate > 60 NOTE: For -Serbian individuals, multiply the result by 1.210. Chronic [...] Panel Reviewed date:11/14/2023 05:01:48 PM Interpretation: Performing Lab:[facility], [address] [place] [phone] Notes/Report: Triglycerides 165 <150 mg/dL Desirable Triglyceride: [...] day Active Zoryve 0.3 % 1 application Program Facilitator ally Once a day Active Benzonatate 100 MG TAKE 1 CAPSULE BY [facility] EVERY 8 HOURS NEEDED FOR COUGH [...] Problem Status W/U Status Risk Notes Problem 7742361 Former smoker (Z87.891) Active confirmed She seems highly motivated not to smoke and we discussed strategies for prevention of relapse in times of stress and illness. Problem 897280978 Fibromyalgia (M79.7) Active confirmed She has occasional low-grade abdominal discomfort. Problem 191552981824 Type 2 diabetes mellitus with other specified complication (E11.69) Active confirmed She will continue on current therapy. Her fasting glucose levels have been under 150. She has been compliant with her medication. Problem 033030094 Other obesity (E66.8) Active confirmed Her body mass index is 30. We have discussed her weight loss strategy. We discussed diet and nutrition. We made a plan to lose weight at a rate of one half of a pound per week. Problem 89045946 Hyperlipidemia, unspecified (E78.5) Active confirmed Her lipids are well controlled and she will continue on her current regimen. Problem 18498541 Age-related osteoporosis without current pathological fracture (M81.0) Active confirmed She is asymptomatic at this time. Problem 50017605 Essential hypertension (I10) Active confirmed Her blood pressure is controlled and no change in her regimen as necessary. Problem 857129550 Gastroesophageal reflux disease without esophagitis (K21.9) Active confirmed She has occasional reflux, well-controll ed medication and no other therapy is necessary at this time. Problem Anemia (787764132) Anemia, unspecified type (D64.9) Active confirmed She has a mild microcytic anemia with a ferritin over 100. The microcytosis is new. She'll be followed carefully. It does not require treatment at this time. 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 Vital Signs Heart Rate 79 /min 04/05/2024 Temperature 97.4 degrees Fahrenheit 04/05/2024 Blood pressure diastolic 77 mm Hg 04/05/2024 Height 60 in 04/05/2024 Blood pressure systolic 138 mm Hg 04/05/2024 Weight 161 lbs 04/05/2024 BMI 31.44 kg/m2 04/05/2024 Encounters Encounter Location Date Provider Diagnosis Fabrice Crain III, MD [address] [place] [address] [place] [address] 12/01/2023 Fabrice Crain Malignant neoplasm o f lower lobe of left lung C34.32 ; Essential hypertension I10 ; Fibromyalgia M79.7 ; Type 2 diabetes mellitus with other specified complication E11.69 ; Hyperlipidemia, unspecified E78.5 ; Age-related osteoporosis without current pathological fracture M81.0 ; Gastroesophageal reflux disease without esophagitis K21.9 ; Former smoker Z87.891 and Other obesity E66.8 Fabrice Crain III, MD [address] [place] [address] [place] [address] 04/05/2024 Fabrice Crain Malignant neoplasm o f lower lobe of left lung C34.32 ; Former smoker Z87.891 ; Gastroesophageal reflux disease without esophagitis K21.9 ; Essential hypertension I10 ; Type 2 diabetes mellitus with other specified complication E11.69 ; Hyperlipidemia, unspecified E78.5 and Age-related osteoporosis without current pathological fracture M81.0 Fabrice Crain III, MD [address] [place] [address] [place] [address] 10/11/2023 Fabrice Crain Malignant neoplasm o f lower lobe of left lung C34.32 Fabrice Crain III, MD [address] [place] [address] [place] [address] 10/16/2023 Fabrice Crain Assessments Encounter Date Diagnosis (ICD Code) Assessment Notes Treat ment Notes Treatment Clinical Notes 12/01/2023 Essential hypertensi on (ICD-10 - I10) [...] and the pain is slowly resolving 12/01/2023 Fibromyalgia (ICD-10 - M79.7) She has occasional low-grade abdominal discomfort. 04/05/2024 Gastroesophageal reflux disease without esophagitis (ICD-10 - K21.9) She has occasional reflux, well-controlled medication and no other therapy is necessary at this time. 10/11/2023 Malignant neoplasm o f lower lobe of left lung (ICD-10 - C34.32) 12/01/2023 Type 2 diabetes mellitus with other specified complication (ICD-10 - E11.69) She will continue on current therapy. The fasting blood sugar is 94. 04/05/2024 Essential hypertensi on (ICD-10 - I10) Her blood pressure is controlled and no change in her regimen as necessary. 12/01/2023 Hyperlipidemia, unspecified (ICD-10 - E78.5) Her lipids are well controlled and she will continue on her current regimen. 04/05/2024 Type 2 diabetes mellitus with other specified complication (ICD-10 - E11.69) She will continue on current therapy. Her fasting glucose levels have been under 150. She has been compliant with her medication. 12/01/2023 Age-related osteoporosis without current pathological fracture (ICD-10 - M81.0) She is asymptomatic at this time. 04/05/2024 Hyperlipidemia, unspecified (ICD-10 - E78.5) Her lipids are well controlled and she will continue on her current regimen. 12/01/2023 Gastroesophageal reflux disease without esophagitis (ICD-10 - K21.9) She has occasional reflux, well-controlled medication and no other therapy is necessary at this time. 04/05/2024 Age-related osteoporosis without current pathological fracture (ICD-10 - M81.0) She is asymptomatic at this time. 12/01/2023 Former smoker (ICD-1 [...] Details Provider Name:Fabrice Crain, 10/04/2024 11:00:00 AM, [address] [place] [address] , [place] [address], [place], [address], Insurance Providers Payer Name Payer Address Payer Phone Subscriber Number Group Number Insured Name Patient Relationship to Insured Coverage Start Date Coverage End Date MEDICARE NGS [address] [place] [phone] [id number] TREY TEE Self - patient is the insured [address] [facility] [phone] [id number] GIANNATREY DAVIES Self - patient is the insured Medical (General) History Medical History History ICD Code Essential hypertension I10 Fibromyalgia M79.7 hiatal hernia hyperlipidemia osteoarthritis diabetes mellitus essential hypertension osteoporosis GERD overweight former smoker 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 Blanchard 2013 Bladder suspention 1992 choleycystectomy 2005 Tubal ligation 1985 Hospitalization History Reason Date(Month/Year) Hospitalization for ' s parkinson's, alzheimer's, and dementia - september, current year
--- OUTSIDE RECORDS SUMMARY | 2024-08-03 07:11 | XMS_ITS ---
Author Organization [facility] Address [address] [place] [address] Care Team Providers Care Supervisor Cook Room Name Role Phone Dannie Huang MD Primary Care Provider Fabrice Smiley [phone] REASON FOR VISIT screening,hx polyps,gerd PROBLEMS Problem Type ICD Code Onset Dates Problem Status W/U Status Risk SNOMED Code Notes Problem Diverticulosis of large intestine without perforation or abscess without bleeding (K57.30) Active confirmed Diverticul ar disease of colon (748017388) Problem Gastro-esophageal reflux disease without esophagitis (K21.9) Active confirmed Gastro-esophage al reflux disease without esophagitis (712656282) Encounters Encounter Location Date Provider Diagnosis [facility] [address] [place] [phone] 10/27/2023 Fabrcie Blanchard Encounter for scre ening colonoscopy Z12.11 [...]
--- OUTSIDE RECORDS SUMMARY | 2024-08-03 07:11 | XMS_ITS | Patient Health Record ---
Author Organization [facility] Address [address] [place] [address] Care Team Providers Care Brush Stainer Name Role Phone Dannie Huang MD Primary Care Provider Fabrice Smiley [phone] ALLERGIES Allergen (clinical drug ingredient) Drug/Non Drug Allergy documented on EMR Reaction Allergy Type Onset Date Status lactose Lactose (Intolerance) Unknown Drug Allergy Active Niacin rash Drug Allergy Active cortizone injections (uncoded) elevated bs and bp Allergy Active RESULTS Component Value Reference Range Notes Glucose, Whole Blood Reviewed date:10/27/2023 05:59:32 PM Interpretation: Performing Lab:[address] [address] Notes/Report: Glucose, Whole Blood 154 60-115 mg/dL METER # : [id number] Pathology Reviewed date:11/05/2023 09:43:00 PM Interpretation: Performing Lab:[address] [address] Notes/Report: REASON FOR REFERRAL No Information MEDICATIONS [...] 20 MG TAKE 1 CAPSULE BY [facility] TWICE A DAY Oral for 30 [...] confirmed Gastro-esophage al reflux disease without esophagitis (641110960) Problem Encounter for screening for malignant neoplasm of colon (Z12.11) Active confirmed 417900179 Problem History of adenomatous polyp of colon (Z86.010) Active confirmed 727946236 Problem Diverticulosis of large intestine without perforation or abscess without bleeding (K57.30) Active confirmed Diverticul ar disease of colon (759748664) Problem Generalized abdominal pain (R10.84) Active confirmed 142461102 Problem Gastroesophageal reflux disease, esophagitis presence not specified (K21.9) Active confirmed 915767005 Problem Irritable bowel syndrome with both constipation and diarrhea (K58.2) Active confirmed 23447221 Problem Chronic cough (R05.3) Active confirmed Chronic cough (44325473) Encounters Encounter Location Date Provider Diagnosis [facility] [address] [place] [address] 08/29/2023 Fabrice Blanchard [facility] Outpatient [address] [place], [place] [phone] 10/27/2023 Fabrice Blanchard Encounter for screen ing colonoscopy Z12.11 ; Colon polyps K63.5 ; Diverticulosis of large intestine without perforation or abscess without bleeding K57.30 ; Other hemorrhoids K64.8 ; Hiatal hernia K44.9 and Gastro-esophageal reflux disease without esophagitis K21.9 [facility] [address] [place] [address] 11/03/2023 Fabrice Blanchard ASSESSMENTS Encounter Date Diagnosis [...] Date MEDICARE OF [place] [address] [place] [address] [id number] GIANNA TREY Shah Self - patient is the insured [facility] [address] [place] [address] [id number] TREY TEE Self - patient is the insured MEDICAL (GENERAL) HISTORY Medical History History ICD Code Irritable bowel syndrome ? hx of ulcer disease in the Colonoscopy 10-14-2008-negati ve except diverticulosis and internal hemorrhoids Colon polyps-tubular adenomas removed in 2001 and 2004 GERD--EGD in 1994 neg-Bx neg for H.pylor i NIDDM fibromyalgia hyperlipidemia hypertension Denies HI,CVA,Lung disease,renal disease EGD in 10/2012--neg except for a small HH --no celiac disease, no H.pylori Colonoscopy 08/2013 and in --negative except for sigmoid diverticulosis and internal hemorrhoids Lung cancer with surgery as below in 2022 Surgical History Surgery Date(Month/Year) bladder suspension 1992 cholecystectomy 2003 tubal ligation 1985 LLL lung resection for cancer-Dr. Shaffer at [facility] 04/07/2023
--- OUTSIDE RECORDS SUMMARY | 2024-08-03 07:12 | XMS_ITS ---
Author Organization [facility] [place] Address [address] [place] [address] Care Team Providers Care Viticulture Teacher Name Role Phone Dannie Huang MD Primary Care Provider Radha Last Unavailable [phone] Allergies Allergen (clinical drug ingredient) Drug/Non Drug [...] Polyneuropathy due to diabetes mellitus type I (078023899) Type 1 diabetes mellitus with diabetic polyneuropathy (E10.42) Active confirmed Vital Signs Height 5 ft 4 in in 06/03/2024 Weight 157 lbs 06/03/2024 BMI 26.95 kg/m2 06/03/2024 Blood pressure systolic 111 mm Hg 06/03/20 24 Blood pressure diastolic 67 mm Hg 024 Procedures Procedure Date Ordered Date Performed Result Body Sit e 73812-XMFTEYK NAIL, 6 OR MORE 06/03/2024 N/A 69938-YRUK SKIN LESIONS, OVER 4 06/03/2024 N/A Encounters Encounter Location Date Provider Diagnosis [facility] [place] [address] 06/03/2024 Radha Weir Type 2 diabetes mellitus with diabetic polyneuropathy E11.42 and Tinea unguium B35.1 Assessments Encounter Date Diagnosis (ICD Code) Assessment Notes Treatment Notes Treatment Clinical Notes Section Notes 06/03/2024 Type 2 diabetes mellitus with diabetic polyneuropathy (ICD-10 - E11.42) 06/03/2024 Tinea unguium (ICD-10 - B35.1) Plan Of Treatment Pending Test Test Name Order Date 17733-DOZVGBX NAIL, 6 OR MORE 06/03/2024 26589-LDUQ SKIN LESIONS, OVER 4 06/03/20 Next Appt Details Follow Up: 4 Months, Reason: Provider Name:Radha little, 09/26/2024 03:45:00 PM, [address] [place] [address], [place], [address], Procedure Notes * Category Sub-Category Detail Notes [...] use of a nail nipper and/or dremel-type od grinder operator, to a more viable healthy nail plate [...] instrumentation by the physician of record - 17205 Progress Notes * Ahsan CANDELARIOB:[birth year] (79 yo F)Acc No.[id number]:06/03/2024 Progress Note Patient:?Julienne CANDELARIO Provider:?Radha Weir DPM :1945???Age:79 Y???Sex:Female D ate:06/03/2024 Address:[address] [place] [address] Pcp:Dannie Huang MD Subjective: * Chief Complaints: [...] 04/2023 * Hospitalization/Major Diagno stic Procedure:?[facility] for 2 day stay , for chest pain, high blood pressure and a head bump [place] [place] [facility] [facility]/07[facility]17[facility] [...] status: . 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 * Medications:?TakingTussin Al legra Extra Depth Diabetic [...] 6.3 * Examination: ???Ophthalmology Referral: ?DIABETES EYE EXAM?Procedure Performed:?Yes ?Date of Exam Performed?06/05/2022 ?Findings of Diabetic Eye Exam:?no retinopathy?Neurological: ?SENSORY:? Neurological exam demonstrates, reduced light touch [...] use of a nail nipper and/or dremel-type od grinder operator, to a more viable healthy nail plate [...] to maintain effectiveness in symptomatic relief - 06595.?Keratoma Treatment:?Parring or Cutting of Benign Hyperkeratotic Lesion(s)?(-57) [...] instrumentation by the physician of record - 14732.? * Procedure Codes:?71577 DEBRI DE NAIL, 6 OR MORE, Modifiers: XS 74511 TRIM SKIN LESIONS, OVER 4, Modifiers: XS * Follow Up:?4 Months * Images: * Sign off status: Completed true * Provider:?Radha Weir DPM Date:? Generated for Bryan lee/Emily/Sher on:?08/03/2024 07:11 AM EST History and Physical Notes * [...]
--- OUTSIDE RECORDS SUMMARY | 2024-08-03 07:12 | XMS_ITS ---
Author Organization Fabrice Crain III, MD Address [address] [place] [address] Care Team Providers Care English Language Learner Tutor Name Role Phone Dannie Huang MD Primary Care Provider Fabrice Butcher Unavailable [phone] Allergies Allergen (clinical drug ingredient) Drug/Non Drug [...] day Active Zoryve 0.3 % 1 application Hem Inspector ally Once a day Active Benzonatate 100 MG TAKE 1 CAPSULE BY [facility] EVERY 8 HOURS NEEDED FOR COUGH Oral [...] Problem Status W/U Status Risk Notes Problem 177738557 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 Vital Signs Temperature 97.4 degrees Fahrenheit 04/05/20 24 Blood pressure systolic 138 mm Hg 04/05/20 24 Blood pressure diastolic 77 mm Hg 024 Heart Rate 79 /min 04/05/2024 Height 60 in 04/05/2024 Weight 161 lbs 04/05/2024 BMI 31.44 kg/m2 04/05/2024 Encounters Encounter Location Date Provider Diagnosis Fabrice Crain III, MD [address] [place] [address] [place] [address] 04/05/2024 Fabrice Crain Malignant neoplasm o f [...] a day Zoryve 0.3 % 1 application Hem Inspector ally Once a day Benzonatate 100 MG TAKE 1 CAPSULE BY [facility] EVERY 8 HOURS NEEDED FOR COUGH Oral [...] check-up Provider Name:Fabrice Crain, 10/04/2024 11:00:00 AM, [address] [place] [address], [address], Progress Notes * KEVIN GEMMAB:[birth year] (79 yo F)Acc No.[id number]:04/05/2024 Progress Notes Patient:?TREY CANDELARIO Provider:?Fabrice Crain MD :1945???Age:79 Y???Sex:Female D ate:04/05/2024 Address:[address] [place], [place] [address] Pcp:Dannie Huang MD Subjective: * Chief Complaints: [...] Crain MD Date:?06/2023 Generated for Printi ng/Glenysg/eTransmitting on:?08/03/2024 07:11 AM EST History and Physical [...]
--- OUTSIDE RECORDS SUMMARY | 2024-08-03 07:12 | XMS_ITS | Clinical Summary ---
Author Organization [facility] Address [address] [place] [address] Phone Care Team Providers Care Sawmill Production Worker Name Role Phone Dannie Huang MD Primary Care Provider [phone] Allergies Active Allergy Reactions Criticality Noted Date [...] general and how their size shape and pattern changer time affect her level of suspicion [...] N/A PROCEDURE: HISTORICAL COLONOSCOPY ESOPHAGOGASTRODUODENOSCOPY N/A PROCEDURE: AL ESOPHAGOGASTRODUODENOSCOPY TRANSORAL DIAGNOSTIC CHOLECYSTECTOMY N/A PROCEDURE: HISTORICAL CHOLECYSTECTOMY TUBAL LIGATION PROCEDURE: HISTORICAL TUBAL LIGATION OTHER SURGICAL HISTORY 04/07/2023 Left PROCEDURE: AL THORACOSCOPY W/THERA WEDGE RESEXN INITIAL UNILAT; COMMENT: [...] (CMS/HCC) DX:DM2 (diabetes mellitus, t ype 2) ([facility]) Anemia DX:Anemia Mild intermittent asthma, uncomplicated [...] Upcoming Encounters Date Type Department Care Team ([facility] Contact Info) Description 10/31/2024 9:00 AM EDT Office Visit Thoracic Surgery - [place] [address] [facility] [address] [place] [phone] Cata Lebron PA [address] [facility], [address] [address] Health Maintenance Due Date Last Done Comments Pneumococcal Vaccine: 50+ Years (1 of 2 [...] Blood Test 12/29/2023 Influenza Vaccine (#1) 2024 DTaP,Tdap,and Td Vaccines (2 - Td or [...] age to complete this topic Insurance MEDICARE [facility] [address] [place] [address] Care Teams Sawmill Production Worker Relationship Specialty Start Date End Date Dannie Huang MD [address] [place] [address] [address] [place] PCP - General 03/22/18
--- OUTSIDE RECORDS SUMMARY | 2024-08-03 07:12 | XMS_ITS ---
Author Organization Fabrice Crain III, MD Address [address] [place] [address] Care Team Providers Care Director Toxicology Name Role Phone Dannie Huang MD Primary Care Provider Fabrice Butcher [phone] REASON FOR VISIT Regarding CT Chest Social History Sex Assigned At : Social History Observation Description Sex Assigned At Female Encounters Encounter Location Date Provider Diagnosis Fabrice Crain III, MD [address] [place] [address] [place] [address] 10/16/2023 Fabrice Crain Plan Of Treatment Next Appt Details Provider Name:Fabrice Crain, 10/04/2024 11:00:00 AM, [address] [place] [address] [address], [place], [address], Progress Notes * GEMMA BROWNB:[birth year] (78 yo F)Acc No.[id number]:10/16/2023 Patient:?TREY BROWN :1945???Age:78 Y???Sex:Female Address:[address] [place], [address] * true * Date:? Generated for Printi ng/Faxing/eTransmitting on:?08/03/2024 07:11 AM EST
== END 2024-08-02 07:08 | disposition home or self-care (01) ==
LOC: HO.HOSX 07:07
PROVIDERS: Visit Provider Physician Assistant
DX: Z13.89 Encounter for screening for other disorder (principal)

== ENCOUNTER 2024-09-06 12:39 | Outpatient (AMB) | payer MEDICARE, OTHER, SELFPAY ==
--- NOTE | 2024-09-06 12:42 | A.OFFVIS_ITS ---
Vital Signs 09/06/24 12:48 Height 5 ft 4 in Weight 155 lb 10.342 oz BMI 26.7 BP 130/72 Blood Pressure Location Lt brachial Position Sitting Pulse 75 Pulse Source Monitor Intake Visit Reasons: OPERATER/ Troyke/ V/ aortic stenosis/mumur Customer Sales Consultant Required: No Accompanied by: Self / Same As Patient Allergies niacin [Niacin] Allergy (Mild, Verified 07/24/24 10:02) RASH lactose [Lactose] Adverse Reaction (Mild, Verified 07/24/24 10:02) DIARRHEA atorvastatin [Lipitor] Adverse Reaction (Unknown, Verified 07/24/24 10:02) Unknown celecoxib [Celebrex] Adverse Reaction (Unknown, Verified 07/24/24 10:02) Unknown simvastatin Adverse Reaction (Unknown, Verified 07/24/24 10:02) Unknown Medication List - Last Reconciled 09/06/24 by Rufino Murry MD albuterol sulfate 90 mcg/actuation 2 puffs PO Q4-6H PRN Arnuity Ellipta 100 mcg/actuation (fluticasone furoate) 1 inh inhalation DAILY NS azelastine 2 sprays intranasal BID blood sugar diagnostic As directed blood-glucose meter (FreeStyle Canones Lite kit) As directed carvedilol 6.25 mg PO BID celecoxib 200 mg PO BID dextromethorphan HBr (Delsym Cough) 15 mg PO Q8H PRN 30 days hydralazine 25 mg PO BID lancets (FreeStyle Lancets) As directed loratadine (Claritin) 10 mg PO DAILY lorazepam 0.5 mg PO BID omeprazole 20 mg PO BID pravastatin 80 mg PO DAILY HPI Comments Details: Julienne is here for consultation regarding aortic stenosis. She had an echocardiogram few months back and that showed mild aortic stenosis. Patient herself denies any previous cardiac history. No known coronary disease or myocardial infarction or cardiomyopathy or in fact anything cardiac related. She states that she gets some chest discomfort at times when she gets stressed out or physically exerts a lot but not otherwise. Otherwise, reasonably active without any major limitations. Many comorbidities. [facility] Medical History Peptic ulcer Lung cancer Psoriasis Type 2 diabetes mellitus GERD (gastroesophageal reflux disease) Osteopenia Pulmonary nodule Depression Fibromyalgia IBS (irritable bowel syndrome) High cholesterol HTN (hypertension) Chronic cough Allergic rhinitis Cough due to bronchospasm Surgical History Hx of bladder repair surgery S/P lobectomy of lung History of tubal ligation History of esophagogastroduodenoscopy (EGD) History of laparoscopic cholecystectomy History of colonoscopy Family History Father Myocardial infarction Mother Diabetic coma Sister No problems noted. 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 of Systems Const Denies chills, Denies fatigue, Denies fever(s), Denies frequent falls, Denies weakness, Denies weight gain and Denies weight loss ENT Denies dizziness Card Denies chest pain, Denies leg edema, Denies lightheadedness, Denies palpitations, Denies dyspnea, Denies dyspnea on exertion and Denies orthopnea Resp Denies cough, Denies dyspnea and Denies dyspnea on exertion GI Denies bloating and Denies change in bowel habits Musc Denies muscle weakness, Denies numbness and Denies tingling Neuro Denies dizziness, Denies frequent falls, Denies numbness, Denies tingling and Denies weakness Endo Denies fatigue and Denies palpitations Physical Exam Vital Signs: Last Vital Signs Pulse 75 09/06/24 12:48 BP 130/72 09/06/24 12:48 BMI result Body Mass Index 26.7 Const General: comfortable and no acute distress Orientation/consciousness: patient oriented x3 HEENT Other: Unremarkable Head: Yes normal to inspection Neck Neck: Yes normal visual inspection Chest Chest palpation & inspection: normal inspection of the chest Resp Auscultation: clear to auscultation bilaterally Cardio Palpation: normal PMI Heart sounds: S1 normal heart sound present, S2 normal heart sound present, no gallops, Murmur heart sound present systolic II/ and at the right sternal border and no rubs GI Palpation (GI): Soft to palpation Back/Spine/Pelvis Other: unremarkable Skin General skin exam: no rashes or lesions noted Neuro General: patient oriented x3 Extrem General: Yes normal to inspection Psych Mental Status: mental status grossly normal Office Procedures EKG Details: EKG with underlying sinus rhythm at 75/Min; no significant ST-T changes and otherwise unremarkable[place] [address]-Inktjjykxwjzxqrgm, Complete Assessment & Plan Assessment & Plan (1) Non-rheumatic aortic stenosis: Code(s): I35.0 - Nonrheumatic aortic (valve) stenosis Category: Medical Plan Echocardiogram from 2023-LVEF 65-70%. Reported have moderate aortic valve calcification mild stenosis. However, calculated valve area of more so in the moderate range. We will recheck this in one year from the prior study. Prior chest CT scan shows multivessel coronary artery calcification. She does report occasional chest pains but not clear if it is angina or something nonspecific. We will get an exercise stress perfusion imaging study. If that is unremarkable, then aortic stenosis can be followed up periodically on echocardiogram. Orders: Orders CA stress test Today R07.2 - Precordial pain NM cardiolite stress test Today R07.2 - Precordial pain Coding Level of Care Code New Pt Level 4 (98270) Complex EM visit Add On G2211 Diagnoses Non-rheumatic aortic stenosis I35.0 CPT Codes EKG - CPT: 97532-Xxxserkyioohhopil, Complete ([id number])
[2024-09-06 12:48] VITALS: BP 130/72; PULSE 75; BMI 26.7
--- OUTSIDE RECORDS SUMMARY | 2024-09-06 14:31 | XMS_ITS | Patient Health Record ---
Author Organization [facility] Address [address] [place] [address] Care Team Providers Care Ski Lift Operator Name Role Phone Dannie Huang MD Primary Care Provider Fabrice Smiley [phone] Allergies Allergen (clinical drug ingredient) Drug/Non Drug Allergy documented on EMR Reaction Allergy Type Onset Date Status lactose Lactose (Intolerance) Unknown Drug Allergy Active niacin Niacin rash Drug Allergy Active cortizone injections (uncoded) elevated bs and bp Allergy Active Results Component Value Reference Range Notes Glucose, Whole Blood Reviewed date:10/27/2023 05:59:32 PM Interpretation: Performing Lab:[facility], [address] [place] [phone] Notes/Report: Glucose, Whole Blood 154 60-115 mg/dL METER # : [id number] Pathology Reviewed date:11/05/2023 09:43:00 PM Interpretation: Performing Lab:[facility], [address] [place] [phone] Notes/Report: ---- Name: Jesse Candelario I Age/Sex: 78/F : 1945 Unit#: [id number] Attend Dr: Fabrice Blanchard Re10/27/23 Status : [facility] Location: [facility] Disch: ---- SPEC : [id number] RECD : 10/27/23-1155 STATUS: SILVIA JACKSON NUM: [id number] JUAN CARLOS: 10/27/23-[address] [facility] [address]: Fabrice Blanchard ENTERED: 10/27/23-05 05 SP TYPE: Surgical OTHR DR: Dannie Huang MD ORDERED: HE Stain/9, Gross Micro L4/3 Diagnosis A. Colon, at 40 cm, polyp: Tubular adenoma; negative for high-grade dysplasia and carcinoma. B. Colon, cecal poly p: Tubular adenoma; negative for high-grade dysplasia and carcinoma. C. Colon, at 50 cm, polyp: Tubular adenoma; negative for high-grade dysplasia and carcinoma. Clinical History Pre-Op Dx: Reflux, A BD pain, screening Post-Op Dx: Hiatal hernia, reflux, colon polyps, diverticulosis, hemorrhoids Microscopic Description Microscopic sections reviewed. Material Received A. Polyp at 40 cm B. Cecal polyp C. Polyp at 50 cm Gross Description Received in three parts. Part A: Received in formalin labeled ?polyp at 40 cm? is a 0.3 cm curry-pink papular tissue fragment, submitted in toto in a cassette labeled A. Part B: Received in formalin labeled ?cecal polyp? are 2 rubbery, curry papular tissue fragments each measu ring 0.25 cm, submitted in toto in a cassette labeled B. Part C: Received in formalin labeled ?polyp at 50 cm? is a 0.3 cm curry-pink papular tissue fragment, submitted in toto in a cassette labeled C. MICHELLE CONTINUED ON NEXT PAGE ---- Name: Jesse Candelario I Age/Sex: 78/F : 1945 Unit#: [id number] Attend Dr: Fabrice Blanchard Re10/27/23 Status : [facility] Location: [facility] Disch: ---- SPEC : [id number] RECD : 10/27/23-1155 STATUS: SILVIA JACKSON NUM: [id number] JUAN CARLOS: 10/27/23-[address] [facility] [address]: Fabrice Blanchard ENTERED: 10/27/23- 01 SP TYPE: Surgical OTHR DR: Dannie Huang MD ORDERED: MARILU Stain/9Pam L4/3 Copies To: Dannie Huang MD [address] [place] [address], [address] [place] [id number] Fabrice Blanchard [address] [place] [address] [id number] [place] [id number] ---- Signed (signature on file) Paulina Santiago 10/31/23 1552 ---- END OF REPORT Reason For Referral No Information Medications Medication [...] TWICE A DAY Inhalation for 60 Active Immunizations Vaccine Route Administration Date Status Comme nts Flu vaccine no Preserv 3 and > Unknown 04/01/2016 Admin istered Social History Alcohol Screen Question Answer Notes Did you have a drink containing alcohol in the p ast year? No Points 0 Interpretation Negative Section Notes: Nonsmoker; no alcohol Nonsmoker; no alcohol Nonsmoker; no alcohol Nonsmoker; no alcohol Nonsmoker; no alcohol Nonsmoker; no alcohol Problems Problem Type SNOMED Code ICD Code Onset Dates Problem Status W/U Status Risk Notes Problem Gastro-esophage al reflux disease without esophagitis (368043454) Gastro-esophageal reflux disease without esophagitis (K21.9) Active confirmed Problem 383612256 Encounter for screening for malignant neoplasm of colon (Z12.11) Active confirmed Problem 050808012 History of adenomatous polyp of colon (Z86.010) Active confirmed Problem Diverticular disease of colon (825159087) Diverticulosis of large intestine without perforation or abscess without bleeding (K57.30) Active confirmed Problem 207717733 Generalized abdominal pain (R10.84) Active confirmed Problem 204814974 Gastroesophageal reflux disease, esophagitis presence not specified (K21.9) Active confirmed Problem 86564737 Irritable bowel syndrome with both constipation and diarrhea (K58.2) Active confirmed Problem Chronic cough (38518243) Chronic cough (R05.3) Active confirmed Encounters Encounter Location Date Provider Diagnosis [facility] [facility] [address] [place], [place] [phone] 10/27/2023 Fabrice Blanchard Encounter for screen ing colonoscopy Z12.11 ; Colon polyps K63.5 ; Diverticulosis of large intestine without perforation or abscess without bleeding K57.30 ; Other hemorrhoids K64.8 ; Hiatal hernia K44.9 and Gastro-esophageal reflux disease without esophagitis K21.9 [facility] [address] [place] [address] 11/03/2023 Fabrice Blanchard Assessments Encounter Date Diagnosis (ICD Code) Assessment [...] esophagitis (ICD-10 - K21.9) Plan Of Treatment Pending Test Test Name Order Date AMYLASE 09/27/2016 LIPASE 09/27/2016 CBC w DIFF 09/27/2016 Future Test Test Name Order Date COLONOSCOPY 06/13/2013 COLONOSCOPY 08/16/2018 UPPER GI ENDOSCOPY 08/01/2023 COLONOSCOPY 08/01/2023 Insurance Providers Payer Name Payer Address Payer Phone Subscriber Number Group Number Insured Name Patient Relationship to Insured Coverage Start Date Coverage End Date MEDICARE OF ROSA [place] [address] [id number] [phone] [id number] GIANNA ZTREY Self - patient is the insured [facility] [address] [place] [address] [id number] TREY TEE Self - patient is the insured Medical (General) History Medical History History ICD Code Irritable bowel syndrome ? hx of ulcer disease in the Colonoscopy 10-14-2008-negati ve except diverticulosis and internal hemorrhoids Colon polyps-tubular adenomas removed in 2001 and 2004 GERD--EGD in 1994 neg-Bx neg for H.pylor i NIDDM fibromyalgia hyperlipidemia hypertension Denies [place],CVA,Lung disease,renal disease EGD in 10/2012--neg except for a small HH --no celiac disease, no H.pylori Colonoscopy 08/2013 and in --negative except for sigmoid diverticulosis and internal hemorrhoids Lung cancer with surgery as below in 2022 Surgical History Surgery Date(Month/Year) bladder suspension 1992 cholecystectomy 2003 tubal ligation 1985 LLL lung resection for cancer-Dr. Shaffer at [facility] 04/07/2023
--- OUTSIDE RECORDS SUMMARY | 2024-09-06 14:31 | XMS_ITS ---
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 Vital Signs Temperature 97.4 degrees Fahrenheit 04/05/20 24 Blood pressure systolic 138 mm Hg 04/05/20 24 Blood pressure diastolic 77 mm Hg 024 Heart Rate 79 /min 04/05/2024 Height 60 in 04/05/2024 Weight 161 lbs 04/05/2024 BMI 31.44 kg/m2 04/05/2024 Encounters Encounter Location Date Provider Diagnosis Fabrice Crain III, MD [address] [place] [address] [place] [address] 04/05/2024 Fabrice Crain Malignant neoplasm o f [...] a day Zoryve 0.3 % 1 application Tracer Powder Blender ally Once a day Benzonatate 100 MG TAKE 1 CAPSULE BY [facility] EVERY 8 HOURS NEEDED FOR COUGH [...] check-up Provider Name:Fabrice Crain, 10/04/2024 11:00:00 AM, [address] [place] [address], [phone], Progress Notes * KEVIN GEMMAB:[birth year] (79 yo F)Acc No.[id number]:04/05/2024 Progress Notes Patient:?TREY CANDELARIO Provider:?Fabrice Crain MD :1945???Age:79 Y???Sex:Female D ate:04/05/2024 Address:[address] [place], [place] [id number] Pcp:Dannie Huang MD Subjective: * Chief Complaints: [...] Provider:?Fabrice Crain MD Date:?06/2023 Generated for Printi ng/Farubeng/eTransmitting on:?09/06/2024 02:31 PM EDT History and Physical Notes * [...]
--- OUTSIDE RECORDS SUMMARY | 2024-09-06 14:31 | XMS_ITS ---
Author Organization [facility] Address [address] [place] [address] Care Team Providers Care Sanding Line Operator Name Role Phone Dannie Huang MD Primary Care Provider Fabrice Smiley [phone] REASON FOR VISIT abdominal pain Encounters Encounter Location Date Provider Diagnosis [facility] [address] [place] [address] 08/29/2023 Fabrice Blanchard Plan Of Treatment No Information Progress Notes * TREY BROWN IDOB:1944 (79 yo F)Acc No.[id number]:08/29/2023 Progress Notes Patient:?TREY BROWN I Provider:?Fabrice Blanchard MD :1945???Age:78 Y???Sex:Female D ate:08/29/2023 Address:[address] [place] [address] [id number] Pcp:Dannie Huang MD Subjective: * Chief Complaints: * ???1. Abdominal pain. * Medical History:? Objective: * Vitals:? Assessment: Plan: * Treatment: * * The named appointment provid er may or may not be the originator of this progress note, and it is not deemed complete until electronically signed by the appointment provider. Sign off status: Pending * Provider:?Fabrice Blanchard MD Date:? 024 Generated for Printi ng/Farubeng/eTransmitting on:?09/06/2024 02:30 PM EDT
--- OUTSIDE RECORDS SUMMARY | 2024-09-06 14:31 | XMS_ITS ---
Author Organization [facility] Address [address] [place] [address] Care Team Providers Care Training Developer Name Role Phone Dannie Huang MD Primary Care Provider Fabrice Smiley [phone] REASON FOR VISIT screening,hx polyps,gerd Problems Problem Type SNOMED Code ICD Code Onset Dates Problem Status W/U Status Risk Notes Problem Diverticular disease of colon (468147279) Diverticulosis of large intestine without perforation or abscess without bleeding (K57.30) Active confirmed Problem Gastro-esophagea l reflux disease without esophagitis (556429647) Gastro-esophageal reflux disease without esophagitis (K21.9) Active confirmed Encounters Encounter Location Date Provider Diagnosis [facility] [place] [address] [place] [phone] 10/27/2023 Fabrice Blanchard Encounter for scre ening [...] * TREY BROWN IDOB:1944 (79 yo F)Acc No.[id number]:10/27/2023 EGD and COL/MAC Patient:?TREY BROWN I Provider:?Fabrice Blanchard MD :1945???Age:78 Y???Sex:Female D ate:10/27/2023 Address:[address] [place] [address] , [facility] Pcp:Dannie Huang MD Subjective: * Chief Complaints: * ???1. Screening,hx polyps,ge rd. * Medical History:? Objective: * Vitals:? Assessment: * Assessment: 1.?Encounter for screening c olonoscopy - Z12.11 (Primary)???2.?Colon polyps - K63.5???3.?Diverticulosis of large intestine without perforation or abscess without bleeding - K57.30???4.?Other hemorrhoids - K64.8???5. Hiatal hernia - K44.9???6.?Gastro-esophageal reflux disease without esophagitis - K21.9??? Plan: * Treatment: * Procedure Codes:?49019 LESIO N REMOVAL COLONOSCOPY, Modifiers: PT , 0529F INTRVL 3+YRS PTS CLNSCP DOCD, 0528F RCMND FLW-UP 10 YRS DOCD, Modifiers: 1P , 10706 UPPR GI ENDOSCOPY, DIAGNOSIS * * The named appointment provid er may or may not be the originator of this progress note, and it is not deemed complete until electronically signed by the appointment provider. Sign off status: Pending * Provider:?Fabrice Blanchard MD Date:? 024 Generated for Bryan lee/Emily/eTransmitting on:?09/06/2024 02:31 PM EDT
--- OUTSIDE RECORDS SUMMARY | 2024-09-06 14:31 | XMS_ITS ---
Author Organization [facility] Address [address] [place] [address] Care Team Providers Care Gas Main And Line Fitter Name Role Phone Dannie Huang MD Primary Care Provider Radha Last Unavailable [phone] Allergies Allergen (clinical drug ingredient) Drug/Non Drug [...] Polyneuropathy due to diabetes mellitus type I (449099624) Type 1 diabetes mellitus with diabetic polyneuropathy (E10.42) Active confirmed Vital Signs Height 5 ft 4 in in 06/03/2024 Weight 157 lbs 06/03/2024 BMI 26.95 kg/m2 06/03/2024 Blood pressure systolic 111 mm Hg 06/03/20 24 Blood pressure diastolic 67 mm Hg 024 Procedures Procedure Date Ordered Date Performed Result Body Sit e 88475-IWUAKAN NAIL, 6 OR MORE 06/03/2024 N/A 67840-EAGB SKIN LESIONS, OVER 4 06/03/2024 N/A Encounters Encounter Location Date Provider Diagnosis [facility] [place] [address] 06/03/2024 Radha Weir Type 2 diabetes mellitus with diabetic polyneuropathy E11.42 and Tinea unguium B35.1 Assessments Encounter Date Diagnosis (ICD Code) Assessment Notes Treatment Notes Treatment Clinical Notes Section Notes 06/03/2024 Type 2 diabetes mellitus with diabetic polyneuropathy (ICD-10 - E11.42) 06/03/2024 Tinea unguium (ICD-10 - B35.1) Plan Of Treatment Pending Test Test Name Order Date 55630-EGZKXEH NAIL, 6 OR MORE 06/03/2024 74931-CTRS SKIN LESIONS, OVER 4 06/03/20 Next Appt Details Follow Up: 4 Months, Reason: Provider Name:Radha little, 09/26/2024 03:45:00 PM, [address] [place] [address], [place], [address], Procedure Notes * Category Sub-Category Detail Notes [...] use of a nail nipper and/or dremel-type blanchard grinder operator, to a more viable healthy [...] instrumentation by the physician of record - 32763 Progress Notes * Ahsan CANDELARIOB:[birth year] (79 yo F)Acc No.[id number]:06/03/2024 Progress Note Patient:?Julienne CANDELARIO Provider:?Radha Weir DPM :1945???Age:79 Y???Sex:Female D ate:06/03/2024 Address:[address] [place] [address] Pcp:Dannie Huang MD Subjective: * Chief Complaints: [...] 1985endoscopy 2013Lungbectomy 04/2023 * Hospitalization/Major Diagno stic Procedure:?[facility] for 2 day stay , for chest pain, high blood pressure and a head bump 03/2013[facility] [place] / concousin 01/07/17[facility] /PCP- Fell Broke Nose 05/21/21PCP [...] status: . 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 * Medications:?TakingTussin Al legra Extra Depth Diabetic [...] use of a nail nipper and/or dremel-type blanchard grinder operator, to a more viable healthy [...] to maintain effectiveness in symptomatic relief - 86804.?Keratoma Treatment:?Parring or Cutting of Benign Hyperkeratotic Lesion(s)?(-57) [...] instrumentation by the physician of record - 19472.? * Procedure Codes:?35092 DEBRI DE NAIL, 6 OR MORE, Modifiers: XS 99218 TRIM SKIN LESIONS, OVER 4, Modifiers: XS * Follow Up:?4 Months * Images: * Sign off status: Completed true * Provider:?Radha Weir DPM Date:? Generated for Bryan lee/Emily/Sher on:?09/06/2024 02:31 PM EDT History and Physical [...]
--- OUTSIDE RECORDS SUMMARY | 2024-09-06 14:31 | XMS_ITS ---
Author Organization [facility] Address [address] [place] [address] Care Team Providers Care Coordinator Hotels Name Role Phone Dannie Huang MD Primary Care Provider Fabrice Smiley [phone] REASON FOR VISIT results of procedure Encounters Encounter Location Date Provider Diagnosis [facility] [address] [place] [address] 11/03/2023 Fabrice Blanchard Plan Of Treatment No Information Progress Notes * TREY BROWN IDOB:1944 (78 yo F)Acc No.[id number]:11/03/2023 Patient:?TREY BROWN I :1945???Age:78 Y???Sex:Female Address:[address] [place] [address] , [place] [address] * true * Date:? Generated for Emai jesus/Emily/eTransmitting on:?09/06/2024 02:30 PM EDT
--- OUTSIDE RECORDS SUMMARY | 2024-09-06 14:31 | XMS_ITS ---
Author Organization [facility] Address [address] [facility] [place] [address] Care Team Providers Care Ticker Installer Name Role Phone Dannie Huang MD Primary Care Provider Unavaila Radha Vizcaino Unavailable [phone] Param Syed Unavailable [phone] Allergies Allergen (clinical drug ingredient) Drug/Non Drug [...] 024 Encounters Encounter Location Date Provider Diagnosis [facility] [place] [address] [place] [address] 02/22/2024 Param Syed Tinea unguium B35.1 ; [...] Reason: Provider Name:Radha little, 09/26/2024 03:45:00 PM, [address] [place] [address], [phone], Procedure Notes * Category Sub-Category Detail [...] as necessary. Patient chooses, no pharmaceutical tx (19004) Keratoma Treatment Parring or Cutting o f Benign Hyperkeratotic Lesion(s) 19365 ( >4 Lesions) - The Benign hyperkeratotic lesions, as described above were pared, and/or cut utilizing a sterile #15 blade, tissue nippers, and/or dremel Progress Notes * Yesica CANDELARIO:[birth year] (79 yo F)Acc No.[id number]:02/22/2024 Progress Note Patient:?Julienne CANDELARIO Provider:?Param Syed DPM :1945???Age:78 Y???Sex:Female D ate:02/22/2024 Address:[address] [place], [place] [id number] Pcp:Dannie Huang MD Subjective: * Chief Complaints: * ??? Painful nail(s) aggrevat ed by shoes and causing difficulty standing/walking. * HPI: ???Painful Nails:?Pt States Last PCP Visit:?Date:?07/07/2023 ?Misc:?04/07/[address] Cheng at [facility] for lung ca nodule with no [...] 2013 Lungbectomy 04/2023 * Hospitalization/Major Diagno stic Procedure:?[facility] for 2 day stay , for chest pain, high blood pressure and a head bump 03/2013C - Fell / concousin 01/07/17[facility] Care /PCP- Fell Broke Nose 05/21/21PCP - [...] status: . 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 * Medications:?TakingClobetaso l Emul Foam w/MoistCr Tylenol [...] as necessary. Patient chooses, no pharmaceutical tx (92149).?Keratoma Treatment:?Parring or Cutting of Benign Hyperkeratotic Lesion(s)?32091 ( >4 Lesions) - The Benign hyperkeratotic lesions, as described above were pared, and/or cut utilizing a sterile #15 blade, tissue nippers, and/or dremel.? * Procedure Codes:?05761 DEBRI DE NAIL, 6 OR MORE, Modifiers: XS 75063 TRIM SKIN LESIONS, OVER 4, Modifiers: XS * Follow Up:?3 Months * Images: * Sign off status: Completed true * Provider:?Param Syed DPM Date:? 024 Generated for Bryan lee/Emily/eTransmitting on:?09/06/2024 02:30 PM EDT History and Physical Notes * [...] Misc: 04/07/[address] Cheng at [facility] for lung ca nodule with no [...]
--- OUTSIDE RECORDS SUMMARY | 2024-09-06 14:31 | XMS_ITS ---
Author Organization [facility] Address [address] [place] [address] Care Team Providers Care Patient Financial Representative Name Role Phone Dannie Huang MD Primary Care Provider Radha Last Unavailable [phone] Param Syed [phone] REASON FOR VISIT sooner appt Encounters Encounter Location Date Provider Diagnosis [address] [address] 01/04/2024 Param Syed Plan Of Treatment Next Appt Details Provider Name:Radha little, 09/26/2024 03:45:00 PM, [address] [place] [address], [address], Progress Notes * Jesse CANDELARIOaDOB:[birth year] (79 yo F)Acc No.[id number]:01/04/2024 Progress Note Patient:?Julienne CANDELARIO Provider:?Param Syed DPM :1945???Age:78 Y???Sex:Female D ate:01/04/2024 Address:[address] [place] [address], [id number] Pcp:Dannie Huang MD Subjective: * Chief Complaints: [...] DPM Date:? 024 Generated for Bryan lee/Emily/Sher on:?09/06/2024 02:30 PM EDT
--- OUTSIDE RECORDS SUMMARY | 2024-09-06 14:31 | XMS_ITS ---
Author Organization Fabrice rCain III, MD Address [address] [facility] [facility] [place] [address] Care Team Providers Care Box Office Agent Name Role Phone Dannie Huang MD Primary Care Provider Fabrice Butcher Unavailable [phone] Allergies Allergen (clinical drug ingredient) Drug/Non Drug [...] Benzonatate 100 MG TAKE 1 CAPSULE BY [facility] EVERY 8 HOURS NEEDED FOR COUGH Oral Active Albuterol Sulfate HFA 108 (90 Base) MCG/ACT 1 puff as needed Inhalation every 4 hrs Active Zoryve 0.3 % 1 application Customs Broker ally Once a day Active LORazepam 1 [...] Problem Status W/U Status Risk Notes Problem 977323599 Other obesity (E66.8) Active confirmed Her body [...] Date Provider Diagnosis Fabrice Crain III, MD [address] [place] [address] [place] [address] 12/01/2023 Fabrice Crain Malignant neoplasm o f [...] Benzonatate 100 MG TAKE 1 CAPSULE BY [facility] EVERY 8 HOURS NEEDED FOR COUGH Oral Albuterol Sulfate HFA 108 (9 0 Base) MCG/ACT 1 puff as needed Inhalation every 4 hrs Zoryve 0.3 % 1 application Customs Broker ally Once a day LORazepam 1 MG [...] OV Provider Name:Fabrice Crain, 10/04/2024 11:00:00 AM, [address] [place] [address] [address], [place], [address], Progress Notes * JUVENTINO CANDELARIO:[birth year] (78 yo F)Acc No.[id number]:12/01/2023 Progress Notes Patient:?TREY CANDELARIO Provider:?Fabrice Crain MD :1945???Age:78 Y???Sex:Female D ate:12/01/2023 Address:[address] [place] [address] [facility] Pcp:Dannie Huang MD Subjective: * Chief Complaints: [...] mg/dL) 52 (Ref Range: mg/dL) * Lab:[facility]. Pane l Fast * Order Date 11/13/2023 [...] Crain MD Date:?11/04 Generated for Bryan lee/Emily/Reneaitting on:?09/06/2024 02:30 PM EDT History and Physical [...]
--- OUTSIDE RECORDS SUMMARY | 2024-09-06 14:31 | XMS_ITS | Patient Health Record ---
Author Organization Fabrice Crain III, MD Address [address] [facility] [facility] [place] [address] Care Team Providers Care Medical Officer Name Role Phone Dannie Huang MD Primary Care Provider Fabrice Butcher Unavailable [phone] Allergies Allergen (clinical drug ingredient) Drug/Non Drug Allergy documented on EMR Reaction Allergy Type Onset Date Status cortisone Cortisone elevated BP and Glucose Drug Allergy Active niacin Niacin Unknown Drug Allergy Active Lactose Unknown Drug Allergy Active Results Component Value Reference Range Notes Complete Blood Count Auto Di ff Reviewed date:11/14/2023 05:01:48 PM Interpretation: Performing Lab:[facility], [address] [place] [phone] Notes/Report: White Blood Count 5.5 4.8-10.8 X10*3/uL [...] NRBC Abs Auto 0.000 0.0-0.012 X10*3/uL Comprehensive [place]. Panel Fa st Reviewed date:11/14/2023 05:01:48 PM Interpretation: Performing Lab:[facility], [address] [place] [phone] Notes/Report: Sodium 143 135-145 mmol/L Potassium 4.1 3.3-5.1 mmol/L Chloride 107 96-108 mmol/L Carbon Dioxide 24 22-29 mmol/L Anion Gap 16 12-20 Blood Urea Nitrogen 13 9-16 mg/dL Creatinine 0.66 0.5-1.4 mg/dL Estimated Glomerular Filt Rate > 60 NOTE: For -Czech individuals, multiply the result by 1.210. Chronic [...] Panel Reviewed date:11/14/2023 05:01:48 PM Interpretation: Performing Lab:[facility], [address] [place] [phone] Notes/Report: Triglycerides 165 <150 mg/dL Desirable Triglyceride: [...] day Active Zoryve 0.3 % 1 application Motocross Racer ally Once a day Active Benzonatate 100 MG TAKE 1 CAPSULE BY [facility] EVERY 8 HOURS NEEDED FOR COUGH Oral [...] Problem Status W/U Status Risk Notes Problem 8752375 Former smoker (Z87.891) Active confirmed She seems highly motivated not to smoke and we discussed strategies for prevention of relapse in times of stress and illness. Problem 830796240 Fibromyalgia (M79.7) Active confirmed She has occasional low-grade abdominal discomfort. Problem 956307357844 Type 2 diabetes mellitus with other specified complication (E11.69) Active confirmed She will continue on current therapy. Her fasting glucose levels have been under 150. She has been compliant with her medication. Problem 614108926 Other obesity (E66.8) Active confirmed Her body mass index is 30. We have discussed her weight loss strategy. We discussed diet and nutrition. We made a plan to lose weight at a rate of one half of a pound per week. Problem 64029309 Hyperlipidemia, unspecified (E78.5) Active confirmed Her lipids are well controlled and she will continue on her current regimen. Problem 79305432 Age-related osteoporosis without current pathological fracture (M81.0) Active confirmed She is asymptomatic at this time. Problem 22400068 Essential hypertension (I10) Active confirmed Her blood pressure is controlled and no change in her regimen as necessary. Problem 081332907 Gastroesophageal reflux disease without esophagitis (K21.9) Active confirmed She has occasional reflux, well-controll ed medication and no other therapy is necessary at this time. Problem Anemia (161115093) Anemia, unspecified type (D64.9) Active confirmed She has a mild microcytic anemia with a ferritin over 100. The microcytosis is new. She'll be followed carefully. It does not require treatment at this time. 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 Vital Signs Heart Rate 79 /min 04/05/2024 Temperature 97.4 degrees Fahrenheit 04/05/2024 Blood pressure diastolic 77 mm Hg 04/05/2024 Height 60 in 04/05/2024 Blood pressure systolic 138 mm Hg 04/05/2024 Weight 161 lbs 04/05/2024 BMI 31.44 kg/m2 04/05/2024 Encounters Encounter Location Date Provider Diagnosis Fabrice Crain III, MD [address] [place] [address] [place] [address] 12/01/2023 Fabrice Crain Malignant neoplasm o f lower lobe of left lung C34.32 ; Essential hypertension I10 ; Fibromyalgia M79.7 ; Type 2 diabetes mellitus with other specified complication E11.69 ; Hyperlipidemia, unspecified E78.5 ; Age-related osteoporosis without current pathological fracture M81.0 ; Gastroesophageal reflux disease without esophagitis K21.9 ; Former smoker Z87.891 and Other obesity E66.8 Fabrice Crain III, MD [address] [place] [address] [place] [address] 04/05/2024 Fabrice Crain Malignant neoplasm o f lower lobe of left lung C34.32 ; Former smoker Z87.891 ; Gastroesophageal reflux disease without esophagitis K21.9 ; Essential hypertension I10 ; Type 2 diabetes mellitus with other specified complication E11.69 ; Hyperlipidemia, unspecified E78.5 and Age-related osteoporosis without current pathological fracture M81.0 Fabrice Crain III, MD [address] [place] [address] [place] [address] 10/11/2023 Fabrice Crain Malignant neoplasm o f lower lobe of left lung C34.32 Fabrice Crain III, MD [address] [place] [address] [place] [address] 10/16/2023 Fabrice Crain Assessments Encounter Date Diagnosis [...] C) 07/28/2023 PROFILE, RANDOM (COMPREHENSIVE METABOLIC ) 01/29/2021 PROFILE, RANDOM (COMPREHENSIVE METABOLIC ) 08/02/2019 PROFILE, RANDOM (COMPREHENSIVE METABOLIC ) 01/23/2018 PROFILE, RANDOM (COMPREHENSIVE METABOLIC ) 06/23/2017 PROFILE, RANDOM (COMPREHENSIVE METABOLIC ) 01/31/2020 PROFILE, RANDOM (COMPREHENSIVE METABOLIC ) 07/27/2018 PROFILE, RANDOM (COMPREHENSIVE METABOLIC ) 08/05/2021 PROFILE, RANDOM (COMPREHENSIVE METABOLIC ) 09/20/2017 PROFILE, RANDOM (COMPREHENSIVE METABOLIC ) 02/03/2022 FERRITIN 11/29/2022 CBC w DIFF 02/03/2022 CBC w DIFF 01/29/2021 CBC w DIFF 08/02/2019 CBC w DIFF 06/23/2017 CBC w DIFF 11/29/2022 CBC w DIFF 01/31/2020 CBC w DIFF 08/05/2021 CBC w DIFF 07/31/2020 CBC w DIFF 09/20/2017 CBC with MANUAL DIFFERENTIAL 01/23/2018 CBC with MANUAL DIFFERENTIAL 07/27/2018 CBC with MANUAL DIFFERENTIAL 01/25/2019 PLATELET COUNT 06/23/2017 SED RATE (ESR) 01/29/2021 SED RATE (ESR) 11/29/2022 RETICULOCYTE COUNT,CORRECTED 11/29/2022 CT CHEST W&WO CONTRAST 07/28/2023 CBC WITH AUTO DIFF 07/28/2023 T SPOT TB 11/29/2022 Lipid Panel 07/28/2023 CT chest w con 10/11/2023 Next Appt Details Provider Name:Fabrice Crain, 10/04/2024 11:00:00 AM, [address] [place] [address] , [place] [address], [place], [address], Insurance Providers Payer Name Payer Address Payer Phone Subscriber Number Group Number Insured Name Patient Relationship to Insured Coverage Start Date Coverage End Date MEDICARE N[place] [address] [place] [phone] [id number] TREY TEE Self - patient is the insured [address] [facility] [phone] [id number] GIANNATREY Fairchild Self - patient is the insured Medical (General) History Medical History History ICD Code Essential hypertension I10 Fibromyalgia M79.7 hiatal hernia hyperlipidemia osteoarthritis diabetes mellitus essential hypertension osteoporosis GERD overweight former smoker 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 Blanchard 2013 Bladder suspention 1992 choleycystectomy 2005 Tubal ligation 1985 Hospitalization History Reason Date(Month/Year) Hospitalization for ' s parkinson's, alzheimer's, and dementia - september, current year
--- OUTSIDE RECORDS SUMMARY | 2024-09-06 14:31 | XMS_ITS ---
Author Organization Fabrice Crain III, MD Address [address] [place] [address] Care Team Providers Care Teacher Private Name Role Phone Dannie Huang MD Primary Care Provider Fabrice Butcher [phone] Regarding CT Chest Social History Sex Assigned At : Social History Observation Description Sex Assigned At Female Encounters Encounter Location Date Provider Diagnosis Fabrice Crain III, MD [address] [place] [address] [address] [place] [address] 10/16/2023 Fabrice Crain Plan Of Treatment Next Appt Details Provider Name:Fabrice Crain, 10/04/2024 11:00:00 AM, [address] [place] [address] [address], [place], [address], Progress Notes * GEMMA BROWNB:[birth year] (78 yo F)Acc No.[id number]:10/16/2023 Patient:?TREY BROWN :1945???Age:78 Y???Sex:Female Address:[address] [place], [address] * true * Date:? Generated for Printi ng/Faxing/eTransmitting on:?09/06/2024 02:31 PM EDT
--- OUTSIDE RECORDS SUMMARY | 2024-09-06 14:32 | XMS_ITS | Clinical Summary ---
Author Organization [facility] Address [address] [place] [address] Phone Care Team Providers Care Director Of Music Name Role Phone Dannie Huang MD Primary Care Provider [phone] Allergies Active Allergy Reactions Criticality Noted Date [...] general and how their size shape and telephone exchange operator time affect her level of suspicion for [...] N/A PROCEDURE: HISTORICAL COLONOSCOPY ESOPHAGOGASTRODUODENOSCOPY N/A PROCEDURE: LA ESOPHAGOGASTRODUODENOSCOPY TRANSORAL DIAGNOSTIC CHOLECYSTECTOMY N/A PROCEDURE: HISTORICAL CHOLECYSTECTOMY TUBAL LIGATION PROCEDURE: HISTORICAL TUBAL LIGATION OTHER SURGICAL HISTORY 04/07/2023 Left PROCEDURE: LA THORACOSCOPY W/THERA WEDGE RESEXN INITIAL UNILAT; COMMENT: [...] (CMS/HCC) DX:DM2 (diabetes mellitus, t ype 2) ([facility]) Anemia DX:Anemia Mild intermittent asthma, uncomplicated DX:Mild [...] Upcoming Encounters Date Type Department Care Team ([facility] Contact Info) Description 10/21/2024 11:00 AM EDT Appointment [facility] CT Scan [address] [place] [address] 10/31/2024 11:15 AM EDT Office Visit Thoracic Surgery - [place] [address] [facility] [address] [place] [address] Ctaa Le[place] [address] [facility], [address] [place] [address] Health Maintenance Due Date Last Done Comments Pneumococcal Vaccine: 50+ Years (1 of 2 - PCV) 1965 Zoster Vaccines (1 of 2) 1965 RSV Immunization Adult Patients (1 - 1-dose 75+ series) 2021 Cholesterol Screening (Lipid Panel) 07/04/2023 Depression Screening 07/04/2023 Falls Risk Assessment 07/04/2023 Hepatitis C Screening 07/04/2023 Medicare Annual Wellness Visit 07/04/2023 Osteoporosis Screening (Bone Density Screening) 07/04/2023 Social Influencers of Health Screening 07/04/2023 Hypertension/CHF/CAD Annual BMP Blood Test 12/29/2023 Influenza Vaccine (Season Ended) 2025 DTaP,Tdap,and Td Vaccines (2 - Td or [...] age to complete this topic Insurance MEDICARE [facility] [address] [place] [address] Care Teams Director Of Music Relationship Specialty Start Date End Date Dannie Huang MD [address] [place] [address] [address] [place], [place] PCP - General 03/22/18
== END 2024-09-06 13:17 | disposition home or self-care (01) ==
PROVIDERS: Visit Provider Internal Medicine
DX: I35.0 Nonrheumatic aortic (valve) stenosis (principal); R07.2 Precordial pain
CPT/HCPCS: 93010; 99214; G2211

== ENCOUNTER → 2024-09-06 12:39 | Outpatient (BNVA) | payer MEDICARE, OTHER, SELFPAY | PROVIDERS: Visit Provider Internal Medicine | DX: I35.0 Nonrheumatic aortic (valve) stenosis (principal) | CPT/HCPCS: 93005; 99212 ==

== ENCOUNTER 2024-09-16 15:24 | Outpatient (AMB) | payer MEDICARE, OTHER, SELFPAY ==
--- NOTE | 2024-09-16 16:15 | MHC.OFFWIV ---
Intake Vital Signs 09/16/24 16:17 Weight 157 lb BP 140/82 H Blood Pressure Location Lt brachial Position Sitting Pulse 83 Pulse Source Pulse Oximeter Pulse Oximetry (%) 98 Oxygen Delivery Method Room Air Intake Visit Reasons: EP Pain in hips, knees, ankles Intake Note: Patient here for bilat hip, knee and ankle pain that has worsened over this past week. Patient Tobacco Use Status: Former Tobacco user Allergies niacin [Niacin] Allergy (Mild, Verified 09/16/24 16:18) RASH lactose [Lactose] Adverse Reaction (Mild, Verified 09/16/24 16:18) DIARRHEA atorvastatin [Lipitor] Adverse Reaction (Unknown, Verified 09/16/24 16:18) Unknown celecoxib [Celebrex] Adverse Reaction (Unknown, Verified 09/16/24 16:18) Unknown simvastatin Adverse Reaction (Unknown, Verified 09/16/24 16:18) Unknown Do you need a note to return to daycare/school/sports/work: No HPI HPI Comments History of Present Illness Details 79 y/o Female patient who presents to the walk in clinic with c/o Pain in Multiple joints. Pt reports Pain on B/L shoulders, Hips, Knees and Ankles. 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 Sh eis currently being followed by Ortho who has recommended Steroid injections. Pt report had Cortisone Injection on her right shoulder with no improvement. She is starting PT next week for the shoulders. Reports that Ibuprofen causes GI upset, Acetaminophen, Heat/Ice not working for her. She has an upcoming appointment with Senior Analytic Consultant in May. [facility] Medical History Peptic ulcer Lung cancer Psoriasis Type 2 diabetes mellitus GERD (gastroesophageal reflux disease) Osteopenia Pulmonary nodule Depression Fibromyalgia IBS (irritable bowel syndrome) High cholesterol HTN (hypertension) Chronic cough Allergic rhinitis Cough due to bronchospasm Surgical History Hx of bladder repair surgery S/P lobectomy of lung History of tubal ligation History of esophagogastroduodenoscopy (EGD) History of laparoscopic cholecystectomy History of colonoscopy Family History Father Myocardial infarction Mother Diabetic coma Sister No problems noted. 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 of Systems Const All systems reviewed & are unremarkable except as noted in HPI and below Physical Exam Vital Signs: Last Vital Signs Pulse 83 09/16/24 16:17 BP 140/82 H 09/16/24 16:17 Pulse Ox 98 09/16/24 16:17 Oxygen Delivery Method Room Air 09/16/24 16:17 Const General: no acute distress Orientation/consciousness: patient oriented x3 Neuro General: patient oriented x3, gait normal and moves all extremities Extrem Right lower extremity: hip/thigh Details: normal to inspection, tenderness Location: of the hip and normal ROM (slightly limited due to pain), knee Details: tenderness Location: of the patella and normal ROM; no swelling and no crepitus and ankle Details: normal to inspection, no edema and normal ROM; no tenderness, no swelling, no ecchymosis and no crepitus Left lower extremity: hip/thigh Details: tenderness Location: of the hip and normal ROM (Limited ROM due to Pain); no crepitus, knee Details: tenderness Location: of the patella and normal ROM; no swelling and ankle Details: normal to inspection, no edema and normal ROM; no tenderness and no swelling Psych Speech and movement: Normal speech and movement present Assessment & Plan Assessment & Plan (1) Polyarthralgia: Code(s): M25.50 - Pain in unspecified joint Plan: Placed Referral for Physical Therapy for B/L Knees, Hips and Ankles. Ordered Prednisone. Ice/Hot Orders: Orders PT Evaluation and Treatment Today M25.50 - Pain in unspecified joint Medications: New prednisone 20 mg PO DAILY 10 tabs 0RF M25.50 - Pain in unspecified joint Coding Level of Care Code Est Pt Level 4 (96869) Diagnoses Polyarthralgia M25.50 Time Spent (min) 20
[2024-09-16 16:17] VITALS: BP 140/82; PULSE 83; O2SAT 98
--- OUTSIDE RECORDS SUMMARY | 2024-09-16 17:53 | XMS_ITS ---
Author Organization [facility] Address [address] [place] [address] Care Team Providers Care Residential Solar Sales Consultant Name Role Phone Dannie Huang MD Primary Care Provider Unavaila Radha Vizcaino Unavailable [phone] Param Syed Unavailable [phone] Allergies Allergen (clinical drug ingredient) Drug/Non Drug [...] 024 Encounters Encounter Location Date Provider Diagnosis [facility] [place] [address] [place] [address] 02/22/2024 Param Syed Tinea unguium B35.1 ; [...] Reason: Provider Name:Radha little, 09/26/2024 03:45:00 PM, [address] [place] [address], [phone], Procedure Notes * Category Sub-Category Detail [...] as necessary. Patient chooses, no pharmaceutical tx (02032) Keratoma Treatment Parring or Cutting o f Benign Hyperkeratotic Lesion(s) 30416 ( >4 Lesions) - The Benign hyperkeratotic lesions, as described above were pared, and/or cut utilizing a sterile #15 blade, tissue nippers, and/or dremel Progress Notes * Yesica CANDELARIO:[birth year] (79 yo F)Acc No.[id number]:02/22/2024 Progress Note Patient:?Julienne CANDELARIO Provider:?Param Syed DPM :1945???Age:78 Y???Sex:Female D ate:02/22/2024 Address:[address] [place], [place] [id number] Pcp:Dannie Huang MD Subjective: * Chief Complaints: * ??? Painful nail(s) aggrevat ed by shoes and causing difficulty standing/walking. * HPI: ???Painful Nails:?Pt States Last PCP Visit:?Date:?07/07/2023 ?Misc:?04/07/[address] Cheng at [facility] for lung ca nodule with no [...] 2013 Lungbectomy 04/2023 * Hospitalization/Major Diagno stic Procedure:?[facility] for 2 day stay , for chest pain, high blood pressure and a head bump 03/2013C - Fell / concousin 01/07/17[facility] /PCP- Fell Broke Nose 05/21/21PCP - [...] status: . 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 * Medications:?TakingClobetaso l Emul Foam w/MoistCr Tylenol [...] as necessary. Patient chooses, no pharmaceutical tx (62668).?Keratoma Treatment:?Parring or Cutting of Benign Hyperkeratotic Lesion(s)?77015 ( >4 Lesions) - The Benign hyperkeratotic lesions, as described above were pared, and/or cut utilizing a sterile #15 blade, tissue nippers, and/or dremel.? * Procedure Codes:?46304 DEBRI DE NAIL, 6 OR MORE, Modifiers: XS 56054 TRIM SKIN LESIONS, OVER 4, Modifiers: XS * Follow Up:?3 Months * Images: * Sign off status: Completed true * Provider:?Param Syed DPM Date:? 024 Generated for Bryan lee/Emily/eTransmitting on:?09/16/2024 05:53 PM EDT History and Physical Notes * [...] Misc: 04/07/[address] Cheng at [facility] for lung ca nodule with no [...]
--- OUTSIDE RECORDS SUMMARY | 2024-09-16 17:53 | XMS_ITS ---
Author Organization [facility] Address [address] [place] [address] Care Team Providers Care Cardiac Cath Rn Name Role Phone Dannie Huang MD Primary Care Provider Fabrice Smiley [phone] REASON FOR VISIT results of procedure Encounters Encounter Location Date Provider Diagnosis [facility] [address] [place] [address] 11/03/2023 Fabrice Blanchard Plan Of Treatment No Information Progress Notes * TREY BROWN IDOB:1944 (78 yo F)Acc No.[id number]:11/03/2023 Patient:?TREY BROWN I :1945???Age:78 Y???Sex:Female Address:[address] [place] [address] , [place] [address] * true * Date:? Generated for Printi ng/Farubeng/eTransmitting on:?09/16/2024 05:53 PM EDT
--- OUTSIDE RECORDS SUMMARY | 2024-09-16 17:53 | XMS_ITS ---
Author Organization [facility] Address [address] [place] [address] Care Team Providers Care Spanish Language Lecturer Name Role Phone Dannie Huang MD Primary Care Provider Fabrice Smiley [phone] REASON FOR VISIT abdominal pain Encounters Encounter Location Date Provider Diagnosis [facility] [address] [place] [address] 08/29/2023 Fabrice Blanchard Plan Of Treatment No Information Progress Notes * TREY BROWN IDOB:1944 (79 yo F)Acc No.[id number]:08/29/2023 Progress Notes Patient:?TREY BROWN I Provider:?Fabrice Blanchard MD :1945???Age:78 Y???Sex:Female D ate:08/29/2023 Address:[address] [place] [address] [id number] Pcp:Dannie Huang MD Subjective: * Chief Complaints: [...] Blanchard MD Date:? 024 Generated for Printi ng/Faxing/eTransmitting on:?09/16/2024 05:53 PM EDT
--- OUTSIDE RECORDS SUMMARY | 2024-09-16 17:53 | XMS_ITS ---
Author Organization [facility] Address [address] [place] [address] Care Team Providers Care Tire Service Technician Name Role Phone Dannie Huang MD Primary Care Provider Radha Last Unavailable [phone] Param Syed [phone] REASON FOR VISIT sooner appt Encounters Encounter Location Date Provider Diagnosis [address] [address] 01/04/2024 Param Syed Plan Of Treatment Next Appt Details Provider Name:Radha little, 09/26/2024 03:45:00 PM, [address] [place] [address], [address], Progress Notes * Jesse CANDELARIOaDOB:[birth year] (79 yo F)Acc No.[id number]:01/04/2024 Progress Note Patient:?Julienne CANDELARIO Provider:?Param Syed DPM :1945???Age:78 Y???Sex:Female D ate:01/04/2024 Address:[address] [place] [address], [id number] Pcp:Dannie Huang MD Subjective: * Chief Complaints: [...] DPM Date:? 024 Generated for Bryan lee/Emily/Sher on:?09/16/2024 05:53 PM EDT
--- OUTSIDE RECORDS SUMMARY | 2024-09-16 17:54 | XMS_ITS | Patient Health Record ---
Author Organization [facility] Address [address] [place] [address] Care Team Providers Care Disassembler Product Name Role Phone Dannie Huang MD Primary Care Provider Fabrice Smiley [phone] Allergies Allergen (clinical drug ingredient) Drug/Non Drug Allergy documented on EMR Reaction Allergy Type Onset Date Status lactose Lactose (Intolerance) Unknown Drug Allergy Active niacin Niacin rash Drug Allergy Active cortizone injections (uncoded) elevated bs and bp Allergy Active Results Component Value Reference Range Notes Glucose, Whole Blood Reviewed date:10/27/2023 05:59:32 PM Interpretation: Performing Lab:[facility], [address] [place] [phone] Notes/Report: Glucose, Whole Blood 154 60-115 mg/dL METER # : [id number] Pathology Reviewed date:11/05/2023 09:43:00 PM Interpretation: Performing Lab:[facility], [address] [place] [phone] Notes/Report: ---- Name: Jesse Candelario I Age/Sex: 78/F : 1945 Unit#: [id number] Attend Dr: Fabrice Blanchard Re10/27/23 Status : [facility] Location: [facility] Disch: ---- SPEC : [id number] RECD : 10/27/23-1155 STATUS: SILVIA JACKSON NUM: [id number] JUAN CARLOS: 10/27/23-[address] [facility] [address]: Fabrice Blanchard ENTERED: 10/27/23-05 05 SP [...] Candelario I Age/Sex: 78/F : 1945 Unit#: [id number] Attend Dr: Fabrice Blanchard Re10/27/23 Status : [facility] Location: [facility] Disch: ---- SPEC : [id number] RECD : 10/27/23-1155 STATUS: SILVIA JACKSON NUM: [id number] JUAN CARLOS: 10/27/23-[address] [facility] [address]: Fabrice Blanchard ENTERED: 10/27/23- 01 SP TYPE: Surgical OTHR DR: Dannie Huang MD ORDERED: MARILU Stain/9Pam L4/3 Copies To: Dannie Huang MD [address] [place] [address], [address] [place] [address] Fabrice Blanchard [address] [place] [address] [id number] [place] [id number] ---- Signed (signature on file) Paulina Santiago [...] Problem Gastro-esophage al reflux disease without esophagitis (839444484) Gastro-esophageal reflux disease without esophagitis (K21.9) Active confirmed Problem 083857428 Encounter for screening for malignant neoplasm of colon (Z12.11) Active confirmed Problem 577656498 History of adenomatous polyp of colon (Z86.010) Active confirmed Problem Diverticular disease of colon (721799326) Diverticulosis of large intestine without perforation or abscess without bleeding (K57.30) Active confirmed Problem 503457578 Generalized abdominal pain (R10.84) Active confirmed Problem 560684461 Gastroesophageal reflux disease, esophagitis presence not specified (K21.9) Active confirmed Problem 27433008 Irritable bowel syndrome with both constipation and diarrhea (K58.2) Active confirmed Problem Chronic cough (96307755) Chronic cough (R05.3) Active confirmed Encounters Encounter Location Date Provider Diagnosis [facility] [address] [place], [place] [id number] 10/27/2023 Fabrice Blanchard Encounter for screen ing colonoscopy Z12.11 ; Colon polyps K63.5 ; Diverticulosis of large intestine without perforation or abscess without bleeding K57.30 ; Other hemorrhoids K64.8 ; Hiatal hernia K44.9 and Gastro-esophageal reflux disease without esophagitis K21.9 [facility] [address] [place] [address] 11/03/2023 Fabrice Blanchard Assessments Encounter Date Diagnosis [...] OF [place] [address] [place] [address] [phone] [id number] GIANNA ZTREY Self - patient is the insured [facility] [address] [place] [address] [phone] [id number] TREY TEE Self - patient is the insured Medical (General) History Medical History History ICD Code Irritable bowel syndrome ? hx of ulcer disease in the Colonoscopy 10-14-2008-negati ve except diverticulosis and internal hemorrhoids Colon polyps-tubular adenomas removed in 2001 and 2004 GERD--EGD in 1994 neg-Bx neg for H.pylor i NIDDM fibromyalgia hyperlipidemia hypertension Denies IN,CVA,Lung disease,renal disease EGD in 10/2012--neg except for a small HH --no celiac disease, no H.pylori Colonoscopy 08/2013 and in --negative except for sigmoid diverticulosis and internal hemorrhoids Lung cancer with surgery as below in 2022 Surgical History Surgery Date(Month/Year) bladder suspension 1992 cholecystectomy 2003 tubal ligation 1985 LLL lung resection for cancer-Dr. Shaffer at [facility] 04/07/2023
--- OUTSIDE RECORDS SUMMARY | 2024-09-16 17:54 | XMS_ITS ---
Author Organization [facility] Address [address] [place] [address] Care Team Providers Care Small Arms Artillery Repairer Name Role Phone Dannie Huang MD Primary Care Provider Fabrice Smiley [phone] REASON FOR VISIT screening,hx polyps,gerd Problems Problem Type SNOMED Code ICD Code Onset Dates Problem Status W/U Status Risk Notes Problem Diverticular disease of colon (332412744) Diverticulosis of large intestine without perforation or abscess without bleeding (K57.30) Active confirmed Problem Gastro-esophagea l reflux disease without esophagitis (712942180) Gastro-esophageal reflux disease without esophagitis (K21.9) Active confirmed Encounters Encounter Location Date Provider Diagnosis [facility] [address] [place] [phone] 10/27/2023 Fabrice Blanchard Encounter for scre ening [...] * TREY BROWN IDOB:1944 (79 yo F)Acc No.[id number]:10/27/2023 EGD and COL/MAC Patient:?TREY BROWN I Provider:?Fabrice Blanchard MD :1945???Age:78 Y???Sex:Female D ate:10/27/2023 Address:[address] [place] [address] , [facility] Pcp:Dannie Huang MD Subjective: * Chief Complaints: * ???1. Screening,hx polyps,ge rd. * Medical History:? Objective: * Vitals:? Assessment: * Assessment: 1.?Encounter for screening c olonoscopy - Z12.11 (Primary)???2.?Colon polyps - K63.5???3.?Diverticulosis of large intestine without perforation or abscess without bleeding - K57.30???4.?Other hemorrhoids - K64.8???5. Hiatal hernia - K44.9???6.?Gastro-esophageal reflux disease without esophagitis - K21.9??? Plan: * Treatment: * Procedure Codes:?82153 LESIO N REMOVAL COLONOSCOPY, Modifiers: PT , 0529F INTRVL 3+YRS PTS CLNSCP DOCD, 0528F RCMND FLW-UP 10 YRS DOCD, Modifiers: 1P , 99536 UPPR GI ENDOSCOPY, DIAGNOSIS * * The named appointment provid er may or may not be the originator of this progress note, and it is not deemed complete until electronically signed by the appointment provider. Sign off status: Pending * Provider:?Fabrice Blanchard MD Date:? 024 Generated for Bryan lee/Emily/eTransmitting on:?09/16/2024 05:53 PM EDT
--- OUTSIDE RECORDS SUMMARY | 2024-09-16 17:54 | XMS_ITS ---
Author Organization Fabrice Crain III, MD Address 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 Vital Signs Temperature 97.4 degrees Fahrenheit 04/05/20 24 Blood pressure systolic 138 mm Hg 04/05/20 24 Blood pressure diastolic 77 mm Hg 024 Heart Rate 79 /min 04/05/2024 Height 60 in 04/05/2024 Weight 161 lbs 04/05/2024 BMI 31.44 kg/m2 04/05/2024 Encounters Encounter Location Date Provider Diagnosis Fabrice Crain III, MD [address] [place] [address] [place] [address] 04/05/2024 Fabrice Crain Malignant neoplasm o f [...] a day Zoryve 0.3 % 1 application Rugby Union Footballer ally Once a day Benzonatate 100 MG [...] check-up Provider Name:Fabrice Crain, 10/04/2024 11:00:00 AM, [address] [place] [address], [address], Progress Notes * KEVIN GEMMAB:[birth year] (79 yo F)Acc No.[id number]:04/05/2024 Progress Notes Patient:?TREY CANDELARIO Provider:?Fabrice Crain MD :1945???Age:79 Y???Sex:Female D ate:04/05/2024 Address:[address] [place], [place] [address] Pcp:Dannie Huang MD Subjective: * Chief Complaints: [...] Crain MD Date:?06/2023 Generated for Printi ng/Farubeng/eTransmitting on:?09/16/2024 05:54 PM EDT History and Physical Notes * [...]
--- OUTSIDE RECORDS SUMMARY | 2024-09-16 17:54 | XMS_ITS | Clinical Summary ---
Author Organization [facility] Address [address] [place] [address] Phone Care Team Providers Care Work Measurement Engineer Name Role Phone Dannie Huang MD Primary Care Provider [phone] Allergies Active Allergy Reactions Criticality Noted Date [...] general and how their size shape and change management time affect her level of suspicion for [...] N/A PROCEDURE: HISTORICAL COLONOSCOPY ESOPHAGOGASTRODUODENOSCOPY N/A PROCEDURE: SD ESOPHAGOGASTRODUODENOSCOPY TRANSORAL DIAGNOSTIC CHOLECYSTECTOMY N/A PROCEDURE: HISTORICAL CHOLECYSTECTOMY TUBAL LIGATION PROCEDURE: HISTORICAL TUBAL LIGATION OTHER SURGICAL HISTORY 04/07/2023 Left PROCEDURE: SD THORACOSCOPY W/THERA WEDGE RESEXN INITIAL UNILAT; COMMENT: [...] no dule DM2 (diabetes mellitus, type 2) (CMS/HCC V24, CMS/HCC V28) DX:DM2 (diabetes mellitus, t ype 2) ([facility]) Anemia DX:Anemia Mild intermittent asthma, uncomplicated [...] Upcoming Encounters Date Type Department Care Team ([facility] st Contact Info) Description 10/21/2024 11:00 AM EDT Appointment [facility] CT Scan [address] [place] [address] 10/31/2024 11:15 AM EDT Office Visit Thoracic Surgery - [place] [address] [facility] [address] [place] [address] Cata Lebron [place] [address] [facility], [address] [place] [address] Health Maintenance Due Date Last Done Comments [...] age to complete this topic Meningococcal B Vaccine Aged Out No l onger eligible based on patient's age to complete this topic RSV Immunization Patients Under 20 months Aged Out No longer eligible b ased on patient's age to complete this topic Varicella Vaccines Aged Out No longer eligible based on patient's age to complete this topic Insurance MEDICARE [facility] [address] [place] [address] Care Teams Work Measurement Engineer Relationship Specialty Start Date End Date Dannie Huang MD [address] [place] [address] [address] [place], [place] PCP - General 03/22/18
--- OUTSIDE RECORDS SUMMARY | 2024-09-16 17:54 | XMS_ITS ---
Author Organization Fabrice Crain III, MD Address [address] [place] [address] Care Team Providers Care U.S. Commissioner Name Role Phone Dannie Huang MD Primary Care Provider Fabrice Butcher [phone] REASON FOR [address]ISIT Regarding CT Chest Social History Sex Assigned At : Social History Observation Description Sex Assigned At Female Encounters Encounter Location Date Provider Diagnosis Fabrice Crain III, MD [address] [place] [address] [address] [place] [address] 10/16/2023 Fabrice Crain Plan Of Treatment Next Appt Details Provider Name:Fabrice Crain, 10/04/2024 11:00:00 AM, [address] [place] [address] [address], [place], [address], Progress Notes * GEMMA CANDELARIOB:[birth year] (78 yo F)Acc No.[id number]:10/16/2023 Patient:?TREY CANDELARIO :1945???Age:78 Y???Sex:Female Address:[address] [place], [address] * true * Date:? Generated for Printi ng/Faxing/eTransmitting on:?09/16/2024 05:54 PM EDT
--- OUTSIDE RECORDS SUMMARY | 2024-09-16 17:54 | XMS_ITS ---
Author Organization [facility] [place] Address [address] [facility] [place] [address] Care Team Providers Care Audio Operator Name Role Phone Dannie Huang MD Primary Care Provider Radha Last Unavailable [phone] Allergies Allergen (clinical drug ingredient) Drug/Non Drug [...] Polyneuropathy due to diabetes mellitus type I (135572400) Type 1 diabetes mellitus with diabetic polyneuropathy (E10.42) Active confirmed Vital Signs Height 5 ft 4 in in 06/03/2024 Weight 157 lbs 06/03/2024 BMI 26.95 kg/m2 06/03/2024 Blood pressure systolic 111 mm Hg 06/03/20 24 Blood pressure diastolic 67 mm Hg 024 Procedures Procedure Date Ordered Date Performed Result Body Sit e 07543-WEFLLSZ NAIL, 6 OR MORE 06/03/2024 N/A 71993-RMMP SKIN LESIONS, OVER 4 06/03/2024 N/A Encounters Encounter Location Date Provider Diagnosis [facility] [place] [address] 06/03/2024 Radha Weir Type 2 diabetes mellitus with diabetic polyneuropathy E11.42 and Tinea unguium B35.1 Assessments Encounter Date Diagnosis (ICD Code) Assessment Notes Treatment Notes Treatment Clinical Notes Section Notes 06/03/2024 Type 2 diabetes mellitus with diabetic polyneuropathy (ICD-10 - E11.42) 06/03/2024 Tinea unguium (ICD-10 - B35.1) Plan Of Treatment Pending Test Test Name Order Date 21939-VHGYNZF NAIL, 6 OR MORE 06/03/2024 25503-IEXU SKIN LESIONS, OVER 4 06/03/20 Next Appt Details Follow Up: 4 Months, Reason: Provider Name:Radha little, 09/26/2024 03:45:00 PM, [address] [place] [address], [place], [address], Procedure Notes * Category Sub-Category Detail Notes [...] use of a nail nipper and/or dremel-type cutlery grinder, to a more viable healthy nail [...] instrumentation by the physician of record - 70671 Progress Notes * Ahsan CANDELARIOB:[birth year] (79 yo F)Acc No.[id number]:06/03/2024 Progress Note Patient:?Julienne CANDELARIO Provider:?Radha Weir DPM :1945???Age:79 Y???Sex:Female D ate:06/03/2024 Address:[address] [place] [address] Pcp:Dannie Huang MD Subjective: * Chief Complaints: [...] 1985endoscopy 2013Lungbectomy 04/2023 * Hospitalization/Major Diagno stic Procedure:?[facility] for 2 day stay , for chest pain, high blood pressure and a head bump 03/2013[facility] - Fell / concousin 01/07/17[facility] Care /PCP- Fell Broke Nose 05/21/21PCP - [...] status: . 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 * Medications:?TakingTussin Al legra Extra Depth Diabetic [...] use of a nail nipper and/or dremel-type cutlery grinder, to a more viable healthy nail [...] to maintain effectiveness in symptomatic relief - 02015.?Keratoma Treatment:?Parring or Cutting of Benign Hyperkeratotic Lesion(s)?(-57) [...] instrumentation by the physician of record - 08594.? * Procedure Codes:?48833 DEBRI DE NAIL, 6 OR MORE, Modifiers: XS 09224 TRIM SKIN LESIONS, OVER 4, Modifiers: XS * Follow Up:?4 Months * Images: * Sign off status: Completed true * Provider:?Radha Weir DPM Date:? Generated for Bryan lee/Emily/Sher on:?09/16/2024 05:54 PM EDT History and Physical [...]
--- OUTSIDE RECORDS SUMMARY | 2024-09-16 17:54 | XMS_ITS ---
Author Organization Fabrice Crain III, MD Address [address] [place] [address] Care Team Providers Care White Lead Grinder Name Role Phone Dannie Huang MD Primary Care Provider Fabrice Butcher Unavailable [phone] Allergies Allergen (clinical drug ingredient) Drug/Non Drug [...] Benzonatate 100 MG TAKE 1 CAPSULE BY [facility] EVERY 8 HOURS NEEDED FOR COUGH Oral Active Albuterol Sulfate HFA 108 (90 Base) MCG/ACT 1 puff as needed Inhalation every 4 hrs Active Zoryve 0.3 % 1 application Slurry Tank Tender ally Once a day Active LORazepam 1 [...] Problem Status W/U Status Risk Notes Problem 512688087 Other obesity (E66.8) Active confirmed Her body [...] Date Provider Diagnosis Fabrice Crain III, MD [address] [place] [address] [place] [address] 12/01/2023 Fabrice Crain Malignant neoplasm o f [...] Benzonatate 100 MG TAKE 1 CAPSULE BY [facility] EVERY 8 HOURS NEEDED FOR COUGH Oral Albuterol Sulfate HFA 108 (9 0 Base) MCG/ACT 1 puff as needed Inhalation every 4 hrs Zoryve 0.3 % 1 application Slurry Tank Tender ally Once a day LORazepam 1 MG [...] OV Provider Name:Fabrice Crain, 10/04/2024 11:00:00 AM, [address] [place] [address] [address], [place], [address], Progress Notes * JUVENTINO CANDELARIO:[birth year] (78 yo F)Acc No.[id number]:12/01/2023 Progress Notes Patient:?TREY CANDELARIO Provider:?Fabrice Crain MD :1945???Age:78 Y???Sex:Female D ate:12/01/2023 Address:[address] [place] [address] [facility] Pcp:Dannie Huang MD Subjective: * Chief Complaints: [...] mg/dL) 52 (Ref Range: mg/dL) * Lab:[facility] [place]. Pane l Fast * Order Date 11/13/2023 [...] Crain MD Date:?11/04 Generated for Bryan lee/Emily/Reneaitting on:?09/16/2024 05:53 PM EDT History and Physical [...]
--- OUTSIDE RECORDS SUMMARY | 2024-09-16 17:54 | XMS_ITS | Patient Health Record ---
Author Organization [facility] Address [address] [facility] [place] [address] Care Team Providers Care Clinical Operations Specialist Name Role Phone Dannie Huang MD Primary Care Provider Radha Last Unavailable [phone] Param Syed Unavailable [phone] Allergies Allergen (clinical drug ingredient) Drug/Non Drug [...] Status Risk Notes Problem Acquired hallux valgus (16931979) Hallux valgus (acquired), left foot (M20.12) Active confirmed Problem Polyneuropathy due to diabetes mellitus type I (061688888) Type 1 diabetes mellitus with diabetic polyneuropathy (E10.42) Active confirmed Problem Localized, primary osteoarthritis of the ankle and/or foot (936473416) Primary osteoarthritis, left ankle and foot (M19.072) Active confirmed Problem Acquired hallux valgus (83527307) Hallux valgus (acquired), right foot (M20.11) Active confirmed Problem Polyneuropathy due to type 2 diabetes mellitus (832916224) Type 2 diabetes mellitus with diabetic polyneuropathy (E11.42) Active confirmed Vital Signs Blood pressure diastolic 67 mm Hg 06/03/2024 Height 5 ft 4 in in 06/03/2024 Blood pressure systolic 111 mm Hg 06/03/2024 Weight 157 lbs 06/03/2024 BMI 26.95 kg/m2 06/03/2024 Procedures Procedure Date Ordered Date Performed Result Body Sit e 99907-VIVFPZO NAIL, 6 OR MORE 06/03/2024 N/A 13456-ATFF SKIN LESIONS, OVER 4 06/03/2024 N/A Encounters Encounter [facility] Date [facility] [address] [facility]/23/2023 Param Syed Tinea unguium B35.1 ; Type 2 diabetes mellitus with diabetic polyneuropathy E11.42 ; Pain in right toe(s) M79.674 ; Pain in left toe(s) M79.675 ; Hallux valgus (acquired), left foot M20.12 ; Hallux valgus (acquired), right foot M20.11 ; Ingrowing nail L60.0 ; Primary osteoarthritis, left ankle and foot M19.072 and Metatarsalgia, right foot M77.[address] [facility] [address] 02/22/2024 Param Syed Tinea unguium B35.1 ; Type 2 diabetes mellitus with diabetic polyneuropathy E11.42 ; Pain in right toe(s) M79.674 ; Pain in left toe(s) M79.675 ; Hallux valgus (acquired), left foot M20.12 ; Hallux valgus (acquired), right foot M20.11 ; Ingrowing nail L60.0 ; Primary osteoarthritis, left ankle and foot M19.072 and Metatarsalgia, right foot M77.[address] [address] 06/03/2024 Radha Weir Type 2 diabetes mellitus with diabetic polyneuropathy E11.42 and Tinea unguium B35.[address] [address] 11/15/2023 Param Syed Assessments Encounter Date Diagnosis (ICD Code) Assessment Notes Treatment Notes Treatment Clinical Notes Section Notes 11/23/2023 Tinea unguium (ICD-10 - B35.1) 02/22/2024 Tinea unguium (ICD-10 - B35.1) 06/03/2024 Type 2 diabetes mellitus with diabetic polyneuropathy (ICD-10 - E11.42) 06/03/2024 Tinea unguium (ICD-10 - B35.1) 02/22/2024 Type 2 diabetes mellitus with diabetic polyneuropathy (ICD-10 - E11.42) 11/23/2023 Type 2 diabetes mellitus with diabetic polyneuropathy (ICD-10 - E11.42) 11/23/2023 Pain in right toe(s) (ICD-10 - M79.674) 02/22/2024 Pain in right toe(s) (ICD-10 - M79.674) 02/22/2024 Pain in left toe(s) (ICD-10 - M79.675) 11/23/2023 Pain in left toe(s) (ICD-10 - M79.675) 11/23/2023 Hallux valgus (acquired), left foot (ICD-10 - M20.12) 02/22/2024 Hallux valgus (acquired), left foot (ICD-10 - M20.12) 02/22/2024 Hallux valgus (acquired), right foot (ICD-10 - M20.11) 11/23/2023 Hallux valgus (acquired), right foot (ICD-10 - M20.11) 11/23/2023 Ingrowing nail (ICD-10 - L60.0) 02/22/2024 Ingrowing nail (ICD-10 - L60.0) 11/23/2023 Primary osteoarthritis, left ankle and foot (ICD-10 - M19.072) 02/22/2024 Primary osteoarthritis, left ankle and foot (ICD-10 - M19.072) 02/22/2024 Metatarsalgia, right foot (ICD-10 - M77.41) 11/23/2023 Metatarsalgia, right foot (ICD-10 - M77.41) Plan Of Treatment Pending Test Test Name Order Date X ray : Ankle, left 3V 11/15/2018 22376-VKLWGSQ NAIL, 6 OR MORE 05/17/2018 42983-EPDYAWZ NAIL, 6 OR MORE 06/03/2024 02270-EPRPPWI NAIL, 6 OR MORE 02/23/2011 46521-IKGWVBV NAIL, 6 OR MORE 05/11/2011 69841-ZPHWPNL NAIL, 6 OR MORE 07/20/2011 96365-YKEFPWX NAIL, 6 OR MORE 10/03/2011 18085-ZMSNQAU NAIL, 6 OR MORE 12/12/2011 19803-QBRCZIU NAIL, 6 OR MORE 02/22/2012 38078-JTOFZKY NAIL, 6 OR MORE 05/09/2012 31557-ZHNYECU NAIL, 6 OR MORE 08/08/2012 39802-LBUJASQ NAIL, 6 OR MORE 11/08/2012 18300-ALMCDAE NAIL, 6 OR MORE 01/30/2013 51831-BDHNOSI NAIL, 6 OR MORE 04/24/2013 16838-ILFDSYE NAIL, 6 OR MORE 07/03/2013 99315-XAGGXIK NAIL, 6 OR MORE 09/16/2013 34481-MTZPNRP NAIL, 6 OR MORE 12/23/2013 38748-OASKHVG NAIL, 6 OR MORE 03/27/2014 99832-VEXSVWZ NAIL, 6 OR MORE 06/09/2014 85696-HVATPEM NAIL, 6 OR MORE 08/18/2014 08134-TLQRUSQ NAIL, 6 OR MORE 10/29/2014 85415-LYISYJA NAIL, 6 OR MORE 01/12/2015 31069-SWLEYHC NAIL, 6 OR MORE 04/13/2015 82679-HVYVIFH NAIL, 6 OR MORE 06/29/2015 53634-XNTGCAB NAIL, 6 OR MORE 09/14/2015 71498-SGRGSIE NAIL, 6 OR MORE 12/17/2015 18225-PSVMOBL NAIL, 6 OR MORE 03/17/2016 28273-ZDGGIPD NAIL, 6 OR MORE 06/16/2016 48525-AGDHBAF NAIL, 6 OR MORE 08/18/2016 33571-JSCKSXT NAIL, 6 OR MORE 11/16/2016 09398-LQZDMXW NAIL, 6 OR MORE 02/16/2017 09722-PXDAWPZ NAIL, 6 OR MORE 05/18/2017 74131-YIXJWJA NAIL, 6 OR MORE 08/17/2017 62361-KGADNBJ NAIL, 6 OR MORE 11/16/2017 69383-COSWPOD NAIL, 6 OR MORE 02/15/2018 29428-Jajxiwxq Plate 05/18/2017 93466-Wlkxlkwy Plate 10/29/2014 78835-Bxdpbxkg Plate 08/18/2014 86958-Wsfqwmjn Plate 06/09/2014 82660-Virguzxq Plate 03/27/2014 44534-PYNI SKIN LESIONS, OVER 4 06/03/20 24 34443-YMOF SKIN LESIONS, OVER 4 08/17/19 19 96450-LOPX SKIN LESIONS, OVER 4 11/16/19 19 98746-EWZS SKIN LESIONS, OVER 4 03/14/20 19 36445-UNKZ SKIN LESIONS, OVER 4 06/17/19 20 60321-TVXO SKIN LESIONS, OVER 4 10/17/19 20 29574-IDHM SKIN LESIONS, OVER 4 01/22/20 20 74576-LBAH SKIN LESIONS, OVER 4 04/22/20 20 10070-IGFG SKIN LESIONS, OVER 4 07/29/19 21 81819-GLIR SKIN LESIONS, OVER 4 10/29/19 21 81868-FIVL SKIN LESIONS, OVER 4 01/28/20 21 44727-SSFW SKIN LESIONS, OVER 4 04/28/20 21 85623-TEIM SKIN LESIONS, OVER 4 08/05/19 22 47916-EYNP SKIN LESIONS, OVER 4 06/09/19 15 77599-HPTD SKIN LESIONS, OVER 4 03/27/20 14 13752-OUGC SKIN LESIONS, OVER 4 12/24/19 14 08708-XWUT SKIN LESIONS, OVER 4 09/17/19 14 43347-TRUL SKIN LESIONS, OVER 4 07/03/19 14 10388-SQVF SKIN LESIONS, OVER 4 04/24/20 13 42473-RYWY SKIN LESIONS, OVER 4 01/31/20 13 13757-HLUH SKIN LESIONS, OVER 4 11/09/19 13 71292-ZXGB SKIN LESIONS, OVER 4 08/09/19 13 83685-YHXV SKIN LESIONS, OVER 4 05/09/20 12 66301-LVEM SKIN LESIONS, OVER 4 02/22/20 12 57179-YQKS SKIN LESIONS, OVER 4 12/12/19 12 43891-EVNB SKIN LESIONS, OVER 4 10/03/19 12 85427-XZGH SKIN LESIONS, OVER 4 07/20/19 12 34469-WMQC SKIN LESIONS, OVER 4 05/11/20 11 53146-IUDS SKIN LESIONS, OVER 4 02/24/20 11 98191-KLDE SKIN LESIONS, OVER 4 08/19/19 15 20786-GJUE SKIN LESIONS, OVER 4 10/30/19 15 19911-UHXW SKIN LESIONS, OVER 4 04/13/20 15 17855-WLCJ SKIN LESIONS, OVER 4 01/13/20 15 26129-FIPH SKIN LESIONS, OVER 4 03/17/20 16 09368-HVJN SKIN LESIONS, OVER 4 12/17/19 16 09536-YWXE SKIN LESIONS, OVER 4 09/14/19 16 06892-JGDI SKIN LESIONS, OVER 4 06/29/19 16 38055-ACTD SKIN LESIONS, OVER 4 05/18/20 17 05961-KGHL SKIN LESIONS, OVER 4 02/17/20 17 73285-UERH SKIN LESIONS, OVER 4 08/19/19 17 49353-HLNM SKIN LESIONS, OVER 4 11/17/19 17 15870-ODAC SKIN LESIONS, OVER 4 06/16/19 17 00326-MJNI SKIN LESIONS, OVER 4 05/17/20 18 59632-QPOU SKIN LESIONS, OVER 4 02/16/20 18 74047-WQTI SKIN LESIONS, OVER 4 11/17/19 18 25081-OEEW SKIN LESIONS, OVER 4 08/18/19 18 73495- Removal of Foreign Body, Subcut 0 06/17/2019 Next Appt Details Provider Name:Radha Kurt little, 09/26/2024 03:45:00 PM, [address] [facility], [place], [address], Insurance Providers Payer Name Payer Address Payer Phone Subscriber Number Group Number Insured Name Patient Relationship to Insured Coverage Start Date Coverage End Date Medicare National [employer] [address] [place] [address] [id number] Julienne Chand Self - patient is the insured [facility] [address] [place] [address] [id number] Julienne Chand Self - patient is [...] [facility] - Fell / concousin 01/07/17 [facility] for 2 day s roxie , for chest pain, high blood pressure and a head bump 03/2013
--- OUTSIDE RECORDS SUMMARY | 2024-09-16 17:54 | XMS_ITS | Patient Health Record ---
Author Organization Fabrice Crain III, MD Address [address] [facility] [place] [address] Care Team Providers Care School Crossing Guard Name Role Phone Dannie Huang MD Primary Care Provider Fabrice Butcher Unavailable [phone] Allergies Allergen (clinical drug ingredient) Drug/Non Drug Allergy documented on EMR Reaction Allergy Type Onset Date Status cortisone Cortisone elevated BP and Glucose Drug Allergy Active niacin Niacin Unknown Drug Allergy Active Lactose Unknown Drug Allergy Active Results Component Value Reference Range Notes Complete Blood Count Auto Di ff Reviewed date:11/14/2023 05:01:48 PM Interpretation: Performing Lab:[facility], [address] [place] [phone] Notes/Report: White Blood Count 5.5 4.8-10.8 X10*3/uL [...] NRBC Abs Auto 0.000 0.0-0.012 X10*3/uL Comprehensive [place]. Panel Fa st Reviewed date:11/14/2023 05:01:48 PM Interpretation: Performing Lab:[facility], [address] [place] [phone] Notes/Report: Sodium 143 135-145 mmol/L Potassium 4.1 3.3-5.1 mmol/L Chloride 107 96-108 mmol/L Carbon Dioxide 24 22-29 mmol/L Anion Gap 16 12-20 Blood Urea Nitrogen 13 9-16 mg/dL Creatinine 0.66 0.5-1.4 mg/dL Estimated Glomerular Filt Rate > 60 NOTE: For -Greenlandic individuals, multiply the result by 1.210. Chronic [...] Panel Reviewed date:11/14/2023 05:01:48 PM Interpretation: Performing Lab:[facility], [address] [place] [phone] Notes/Report: Triglycerides 165 <150 mg/dL Desirable Triglyceride: [...] day Active Zoryve 0.3 % 1 application Branch Service Specialist ally Once a day Active Benzonatate 100 MG TAKE 1 CAPSULE BY [facility] EVERY 8 HOURS NEEDED [...] Problem Status W/U Status Risk Notes Problem 1682072 Former smoker (Z87.891) Active confirmed She seems highly motivated not to smoke and we discussed strategies for prevention of relapse in times of stress and illness. Problem 312159220 Fibromyalgia (M79.7) Active confirmed She has occasional low-grade abdominal discomfort. Problem 933914934956 Type 2 diabetes mellitus with other specified complication (E11.69) Active confirmed She will continue on current therapy. Her fasting glucose levels have been under 150. She has been compliant with her medication. Problem 322184025 Other obesity (E66.8) Active confirmed Her body mass index is 30. We have discussed her weight loss strategy. We discussed diet and nutrition. We made a plan to lose weight at a rate of one half of a pound per week. Problem 84301641 Hyperlipidemia, unspecified (E78.5) Active confirmed Her lipids are well controlled and she will continue on her current regimen. Problem 98347840 Age-related osteoporosis without current pathological fracture (M81.0) Active confirmed She is asymptomatic at this time. Problem 35460072 Essential hypertension (I10) Active confirmed Her blood pressure is controlled and no change in her regimen as necessary. Problem 162375163 Gastroesophageal reflux disease without esophagitis (K21.9) Active confirmed She has occasional reflux, well-controll ed medication and no other therapy is necessary at this time. Problem Anemia (558958669) Anemia, unspecified type (D64.9) Active confirmed She has a mild microcytic anemia with a ferritin over 100. The microcytosis is new. She'll be followed carefully. It does not require treatment at this time. 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 Vital Signs Heart Rate 79 /min 04/05/2024 Temperature 97.4 degrees Fahrenheit 04/05/2024 Blood pressure diastolic 77 mm Hg 04/05/2024 Height 60 in 04/05/2024 Blood pressure systolic 138 mm Hg 04/05/2024 Weight 161 lbs 04/05/2024 BMI 31.44 kg/m2 04/05/2024 Encounters Encounter Location Date Provider Diagnosis Fabrice Crain III, MD [address] [place] [address] [place] [address] 12/01/2023 Fabrice Crain Malignant neoplasm o f lower lobe of left lung C34.32 ; Essential hypertension I10 ; Fibromyalgia M79.7 ; Type 2 diabetes mellitus with other specified complication E11.69 ; Hyperlipidemia, unspecified E78.5 ; Age-related osteoporosis without current pathological fracture M81.0 ; Gastroesophageal reflux disease without esophagitis K21.9 ; Former smoker Z87.891 and Other obesity E66.8 Fabrice Crain III, MD [address] [place] [address] [place] [address] 04/05/2024 Fabrcie Crain Malignant neoplasm o f lower lobe of left lung C34.32 ; Former smoker Z87.891 ; Gastroesophageal reflux disease without esophagitis K21.9 ; Essential hypertension I10 ; Type 2 diabetes mellitus with other specified complication E11.69 ; Hyperlipidemia, unspecified E78.5 and Age-related osteoporosis without current pathological fracture M81.0 Fabrice Crain III, MD [address] [place] [address] [place] [address] 10/11/2023 Fabrice Crain Malignant neoplasm o f lower lobe of left lung C34.32 Fabrice Crain III, MD [address] [place] [address] [place] [address] 10/16/2023 Fabrice Crain Assessments Encounter Date Diagnosis [...] Details Provider Name:Fabrice Crain, 10/04/2024 11:00:00 AM, [address] [place] [address] , [place] [address], [place], [address], Insurance Providers Payer Name Payer Address Payer Phone Subscriber Number Group Number Insured Name Patient Relationship to Insured Coverage Start Date Coverage End Date MEDICARE NGS [address] [place] [phone] [id number] TREY TEE Self - patient is the insured [address] [facility] [phone] [id number] GIANNATREY Fairchild Self - patient is the insured Medical (General) History Medical History History ICD Code Essential hypertension I10 Fibromyalgia M79.7 hiatal hernia hyperlipidemia osteoarthritis diabetes mellitus essential hypertension osteoporosis GERD overweight former smoker Stage I adenocarcinoma of th e lung, Left lower lobe, April 2023, [facility] Surgical History Surgery Date(Month/Year) Lung surgery, Left lower lobe 04/07/2023 colonoscopy, Dr. Blanchard 2013 Bladder suspention 1992 choleycystectomy 2005 Tubal ligation 1985 Hospitalization History Reason Date(Month/Year) Hospitalization for ' s parkinson's, alzheimer's, and dementia - september, current year
== END 2024-09-16 16:54 | disposition home or self-care (01) ==
PROVIDERS: Visit Provider Nurse Practitioner Family
DX: M25.50 Pain in unspecified joint (principal)

== ENCOUNTER → 2024-09-16 15:24 | Outpatient (BNVA) | payer MEDICARE, OTHER, SELFPAY | PROVIDERS: Visit Provider Nurse Practitioner Family | DX: M25.50 Pain in unspecified joint (principal) | CPT/HCPCS: 99212 ==

== ENCOUNTER 2024-10-03 11:35 | Outpatient (AMB) | payer MEDICARE, OTHER, SELFPAY ==
--- NOTE | 2024-10-03 11:37 | MHC.PC.OV ---
Vital Signs 10/03/24 11:41 Height 5 ft 4 in Weight 157 lb BMI 26.9 BP 134/68 Pulse 80 Pulse Source Pulse Oximeter Temp 97.6 F Temp Source Temporal Artery Scan Pulse Oximetry (%) 98 Oxygen Delivery Method Room Air Intake Visit Reasons: Routine +pain in Joints Metal Gauge Maker Required: No Accompanied by: Self / Same As Patient Allergies niacin [Niacin] Allergy (Mild, Verified 10/03/24 11:37) RASH lactose [Lactose] Adverse Reaction (Mild, Verified 10/03/24 11:37) DIARRHEA atorvastatin [Lipitor] Adverse Reaction (Unknown, Verified 10/03/24 11:37) Unknown celecoxib [Celebrex] Adverse Reaction (Unknown, Verified 10/03/24 11:37) Unknown simvastatin Adverse Reaction (Unknown, Verified 10/03/24 11:37) Unknown Tobacco use date assessed: 10/03/24 Fall risk assessment: No Falls in past year Last assessed Fall Risk: 10/03/24 Dental Screening Dental Screen Date: 10/03/24 Did you have a dental visit in the last 12 months?: No Did you have a dental problem in the last 6 months where you did not have access to dental care?: No Was dental information given to patient?: Patient has dentist HPI HPI Comments History of Present Illness Details 79 year old female with a past medical history of lung cancer, mild aortic stenosis, IBS, GERD, asthma, DM presenting for follow up DM: not requiring medicaitons. Last a1C 6.4%. CV: Patient is following with cardiology. Will have stress test in the summer. Denies chest pain Polyarthralgia: seen 09/07/24 at walk in clinic with c/o Pain in Multiple joints. Pt reports Pain on B/L shoulders, Hips, Knees and Ankles. 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 Sh eis currently being followed by Ortho who has recommended Steroid injections. Pt report had Cortisone Injection on her right shoulder with no improvement. She is starting PT next week for the shoulders. Reports that Ibuprofen causes GI upset, Acetaminophen, Heat/Ice not working for her. She has an upcoming appointment with Weatherization And Housing Inspector in May. She was placed on prednisone which did lessen the severity of the pain without total resolution. Patient has increased anxiety and depression since loss of her in May. She is currently taking lorazepam. She is open to SSRI. ROS see HPI PHYSICAL EXAM: GENERAL: Alert and oriented x 3. NAD EYES: EOMI. Anicteric. HENT: Moist mucous membranes. No scleral icterus. No cervical lymphadenopathy. LUNGS: Clear to auscultation bilaterally. CARDIOVASCULAR: Regular rate and rhythm. No murmur. No JVD. ABDOMEN: Soft, non-tender +bs EXTREMITIES: No edema. Non-tender. SKIN: No rashes or lesions. Warm. NEUROLOGIC: No focal neurological deficits. CN II-XII grossly intact PSYCHIATRIC: Cooperative. Appropriate mood and affect [facility] Medical History Peptic ulcer Lung cancer Psoriasis Type 2 diabetes mellitus GERD (gastroesophageal reflux disease) Osteopenia Pulmonary nodule Depression Fibromyalgia IBS (irritable bowel syndrome) High cholesterol HTN (hypertension) Chronic cough Allergic rhinitis Cough due to bronchospasm Surgical History Hx of bladder repair surgery S/P lobectomy of lung History of tubal ligation History of esophagogastroduodenoscopy (EGD) History of laparoscopic cholecystectomy History of colonoscopy (~10/27/23) Family History Father Myocardial infarction Mother Diabetic coma Sister No problems noted. 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 1. Little interest or pleasure in doing things: not at all 2. Feeling down, depressed, or hopeless: several days 3. Trouble falling or staying asleep, or sleeping too much: nearly every day 4. Feeling tired or having little energy: nearly every day 5. Poor appetite or overeating: not at all 6. Feeling bad about yourself - or that you are a failure or have let yourself or your family down: not at all 7. Trouble concentrating on things, such as reading the newspaper or watching television: not at all 8. Moving or speaking so slowly that other people could have noticed. Or the opposite - being so fidgety or restless that you have been moving around a lot more than usual: not at all 9. Thoughts that you would be better off or of hurting yourself in some way: not at all Total score: 7 Depression Screening Interpretation: Positive Depression Screening Follow-up: New Medication prescribed Depression Screening Done: Yes 87539 - PHQ-9 Billing: Yes Source: Developed by Drs. Fabrice Barraza, Juliette Aburto, Ricky Mclain and colleagues, with an educational juan daniel from [employer]. Thrive Questionnaire Date Thrive assessed: 10/03/24 I am a: Patient What is your living situation today?: I have a steady place to live Within the past 12 months, did the food you bought not last and you didn't have the money to get more?: Never true Within the past 12 months, did you worry whether your food would run out before you got money to buy more?: Never true Do you have trouble paying for medicines?: No Do you have trouble getting transportation to medical appointments?: No Do you have trouble paying your heating and electricity bill?: No Do you have trouble taking care of your child, family member or friend?: No Do you have trouble with day-to-day activities such as bathing, preparing meals, shopping, managing finances, etc.?: No Are you currently unemployed and looking for a job?: No Are you interested in more education?: No Please select the resources that you would like help with: None THRIVE Score: 0 AUDIT C Alcohol Use Questionnaire (AUDIT-C) 1. How often do you have a drink containing alcohol?: Never Total Score: 0 AREN-7 AMB Questionnaire AREN-7 Date AREN - 7 assessed: 10/03/24 Feeling nervous, anxious, or on edge: 0 = Not at all Not being able to stop or control worryin = Not at all Worrying too much about different things: 0 = Not at all Trouble relaxin = Not at all Being so restless that it is hard to sit still: 0 = Not at all Becoming easily annoyed or irritable: 0 = Not at all Feeling afraid as if something awful might happen: 0 = Not at all Total AREN-7 score (0-4 normal; 5-9 mild; 10-14 moderate; 15-21 severe): 0 Source: Developed by Drs. Fabrice Barraza, Juliette Aburto, Ricky Mclain and colleagues, with an educational juan daniel from [employer]. Physical exam (Primary Care) Vital Signs: Last Vital Signs Temp 97.6 F 10/03/24 11:41 Pulse 80 10/03/24 11:41 BP 134/68 10/03/24 11:41 Pulse Ox 98 10/03/24 11:41 Oxygen Delivery Method Room Air 10/03/24 11:41 BMI result Body Mass Index 26.9 Tobacco/Smoking Status: Tobacco use Status Tobacco use date assessed 10/03/24 10/03/24 11:48 Patient Tobacco Use Status Former Tobacco user 10/03/24 11:48 PHQ-9: PHQ-9 Score PHQ-9: Total score 7 10/03/24 12:03 Depression Screening Interpretation: Positive Depression Screening Follow-up: New Medication prescribed Thrive Assessment: Date of Thrive Assessment Date Thrive assessed 10/03/24 10/03/24 11:48 Coding Level of Care Code New Pt Level 4 (12058) Diagnoses Polyarthralgia M25.50 Anxiety F41.9 Type 2 diabetes mellitus without complication, without long-term current use of insulin E11.9 Diabetes mellitus type: type 2 Diabetes mellitus intermediate insulin use: without intermediate use Diabetes mellitus complication status: without complication Additional Codes PHQ-9 - 18160 - PHQ-9 Billing: Yes ([id number]) Assessment & Plan Assessment & Plan (1) Polyarthralgia: Code(s): M25.50 - Pain in unspecified joint Category: Medical (2) Anxiety: Code(s): F41.9 - Anxiety disorder, unspecified Category: Medical (3) Diabetes: Code(s): E11.9 - Type 2 diabetes mellitus without complications Category: Medical Qualifiers: Diabetes mellitus type: type 2 Diabetes mellitus termite treater insulin use: without intermediate use Diabetes mellitus complication status: without complication Qualified Code(s): E11.9 - Type 2 diabetes mellitus without complications Plan 79 y/o to establish care. past medica, surgica, social history reviewed Polyarthralgia-some concern for PMR versus fibromyalgia etc. Labs ordered. She is referred to rheumatology. DM-diet controlled CV: Has follow up with cardiology scheduled. BP adequately controlled. Orders: Orders Complete Blood Count Auto Diff Today E11.9 - Type 2 diabetes mellitus without complications, M25.50 - Pain in unspecified joint Comprehensive Met. Panel Today E11.9 - Type 2 diabetes mellitus without complications, M25.50 - Pain in unspecified joint Lipid Panel Today E11.9 - Type 2 diabetes mellitus without complications, M25.50 - Pain in unspecified joint Hemoglobin A1c Today E11.9 - Type 2 diabetes mellitus without complications, M25.50 - Pain in unspecified joint CRP High Sensitivity Today E11.9 - Type 2 diabetes mellitus without complications, M25.50 - Pain in unspecified joint Pathologist Review - CBC Today E11.9 - Type 2 diabetes mellitus without complications, M25.50 - Pain in unspecified joint Erythrocyte Sedimentation Rate Today E11.9 - Type 2 diabetes mellitus without complications, M25.50 - Pain in unspecified joint Lyme IgG/IgM w/reflex to WB Today E11.9 - Type 2 diabetes mellitus without complications, M25.50 - Pain in unspecified joint Referrals Rheumatology Referral M25.50 - Pain in unspecified joint Medications: New sertraline Take 1/2 tab oral once daily for one week then1 tab oral daily for one week 25 mg PO DAILY 90 tabs 3RF Changed From lorazepam 0.5 mg PO BID Anxiety F41.9 - Anxiety disorder, unspecified To lorazepam 0.5mg oral twice daily and 2mg oral qhs 3 mg (3 x 1 mg) PO DAILY 90 tabs 3RF Anxiety F41.9 - Anxiety disorder, unspecified
[2024-10-03 11:41] VITALS: BP 134/68; PULSE 80; TEMP 36.4; O2SAT 98; BMI 26.9
--- OUTSIDE RECORDS SUMMARY | 2024-10-03 13:54 | XMS_ITS | Clinical Summary ---
Author Organization [facility] Address [address] [place] [address] Phone Care Team Providers Care Jammer Operator Name Role Phone Dannie Huang MD Primary Care Provider [phone] Allergies Active Allergy Reactions Criticality Noted Date [...] general and how their size shape and drying rack changer time affect her level of suspicion [...] V28) DX:DM2 (diabetes mellitus, t ype 2) ([facility]) Anemia DX:Anemia Mild intermittent asthma, uncomplicated [...] Upcoming Encounters Date Type Department Care Team ([facility] st Contact Info) Description 10/21/2024 11:00 AM EDT Appointment [facility] Scan [address] [place] [phone] 10/31/2024 11:15 AM EDT Office Visit Thoracic Surgery - [place] [address] [place] [phone] Cata Lebron PA [address] [facility], [address] [place] [address] Health Maintenance Due Date Last Done Comments [...] 07/04/2023 Hypertension/CHF/CAD Annual BMP Blood Test 12/29/2023 COVID-19 Vaccine (4 - 2023-2 5 season) 2024 03/16/2024, 07/05/2021, 09/09/2020 Influenza Vaccine (Season Ended) 2025 DTaP,Tdap,and Td Vaccines (2 - Td or Tdap) 05/21/2031 05/21/2021 HIB Vaccines Aged Out No longer eligi [...] age to complete this topic Insurance MEDICARE [facility] [address] [place] [id number] Care Teams Jammer Operator Relationship Specialty Start Date End Date Dannie Huang MD [address] [place] [address] [address] Garner PCP - General 03/22/18
== END 2024-10-03 13:06 | disposition home or self-care (01) ==
LOC: HO.HMCHD 11:35
PROVIDERS: Visit Provider Internal Medicine
DX: M25.50 Pain in unspecified joint (principal); F41.9 Anxiety disorder, unspecified; E11.9 Type 2 diabetes mellitus without complications

== ENCOUNTER → 2024-10-03 11:35 | Outpatient (BNVA) | payer MEDICARE, OTHER, SELFPAY | PROVIDERS: Visit Provider Internal Medicine | DX: M25.50 Pain in unspecified joint (principal); F41.9 Anxiety disorder, unspecified; E11.9 Type 2 diabetes mellitus without complications | CPT/HCPCS: 96127; 99202 ==

== ENCOUNTER 2024-10-04 10:06 | Outpatient (REF) | payer MEDICARE, OTHER, SELFPAY ==
--- OUTSIDE RECORDS SUMMARY | 2024-10-04 11:04 | XMS_ITS ---
Author Organization [facility] Address [address] [place] [address] Care Team Providers Care Flight Manager Name Role Phone Dannie Huang MD Primary Care Provider Fabrice Smiley [phone] REASON FOR VISIT abdominal pain Encounters Encounter Location Date Provider Diagnosis [facility] [address] [place] [address] 08/29/2023 Fabrice Blanchard Plan Of Treatment No Information Progress Notes * TREY BROWN IDOB:1944 (79 yo F)Acc No.[id number]:08/29/2023 Progress Notes Patient:?TREY BROWN I Provider:?Fabrice Blanchard MD :1945???Age:78 Y???Sex:Female D ate:08/29/2023 Address:[address] [place] [address] [id number] Pcp:Dannie Huang MD Subjective: * Chief Complaints: [...] Provider:?Fabrice Blanchard MD Date:? 024 Generated for Emai ng/Farubeng/eTransmitting on:?10/04/2024 11:04 AM EDT
--- OUTSIDE RECORDS SUMMARY | 2024-10-04 11:04 | XMS_ITS ---
Author Organization [facility] Address [address] [place] [address] Care Team Providers Care Residential Door Installer Name Role Phone Dannie Huang MD Primary Care Provider Fabrice Smiley [phone] REASON FOR VISIT results of procedure Encounters Encounter Location Date Provider Diagnosis [facility] [address] [place] [address] 11/03/2023 Fabrice Blanchard Plan Of Treatment No Information Progress Notes * TREY BROWN IDOB:1944 (78 yo F)Acc No.[id number]:11/03/2023 Patient:?TREY BROWN I :1945???Age:78 Y???Sex:Female Address:[address] [place] [address] , [place] [address] * true * Date:? Generated for Printi ng/Farubeng/eTransmitting on:?10/04/2024 11:04 AM EDT
--- OUTSIDE RECORDS SUMMARY | 2024-10-04 11:05 | XMS_ITS ---
Author Organization [facility] Address [address] [facility] [place] [address] Care Team Providers Care Shiatsu Therapist Name Role Phone Dannie Huang MD Primary Care Provider Radha Last Unavailable [phone] Allergies Allergen (clinical drug ingredient) Drug/Non Drug [...] Externally Not-Taking Physical Therapy . . . 2-3x/week for 3-4 weeks 03/14/2019 Not-Taking Voltaren 1 % as directed Externally apply bid to left ankle for 30 days Not-Taking Extra Depth Diabetic Shoes [...] Active Encounters Encounter Location Date Provider Diagnosis [facility] [address] [address] 09/26/2024 Radha Weir Plan Of Treatment Next Appt Details Provider Name:Malik Clements , 10/08/2024 11:00:00 AM, [address] [place] [address], [address], Progress Notes * Ahsan CANDELARIOB:[birth year] (79 yo F)Acc No.[id number]:09/26/2024 Progress Note Patient:?KEVIN Julienne Provider:?Radha Weir DPM :1945???Age:79 Y???Sex:Female D ate:09/26/2024 Address:[address] [place] [address], [facility] Pcp:Dannie Huang MD Subjective: * Chief Complaints: * ??? * Medical History:?Osteoporosi s, Hypertension, Fibromyalgia, Diabetic type 2, Hiatal hernia, Asthma-variant, sinusitis. * Medications:?Taking Tussin , Taking Kecia , Taking Extra [...] 25mg 2x a day, Not-Taking/PRN ZyrTEC , Not- Taking/PRN Clobetasol Emul Foam w/MoistCr , Not-Taking/PRN Antibiotic [...] , Not-Taking/PRN Mylanta , Not-Taking/PRN Gabapentin * Allergies:?Niacin: rash, Cor tisone: elevated BP/ elevated BS. Objective: * Vitals:? Assessment: Plan: * Treatment: * Images: * The named appointment provid er may or may not be the originator of this progress note, and it is not deemed complete until electronically signed by the appointment provider. Sign off status: Pending * Provider:?Radha Weir DPM Date:?0 09/26/2024 Generated for Bryan lee/Emily/Reneaitting on:?10/04/2024 11:05 AM EDT
--- OUTSIDE RECORDS SUMMARY | 2024-10-04 11:05 | XMS_ITS | Patient Health Record ---
Author Organization Fabrice Crain III, MD Address [address] [facility] [address] Care Team Providers Care Contracting Analyst Name Role Phone Dannie Huang MD Primary Care Provider Fabrice Butcher Unavailable [phone] Allergies Allergen (clinical drug ingredient) Drug/Non Drug Allergy documented on EMR Reaction Allergy Type Onset Date Status cortisone Cortisone elevated BP and Glucose Drug Allergy Active niacin Niacin Unknown Drug Allergy Active Lactose Unknown Drug Allergy Active Results Component Value Reference Range Notes Complete Blood Count Auto Di ff Reviewed date:11/14/2023 05:01:48 PM Interpretation: Performing Lab:[facility], [address] [place] [address] Notes/Report: White Blood Count 5.5 4.8-10.8 X10*3/uL [...] NRBC Abs Auto 0.000 0.0-0.012 X10*3/uL Comprehensive [place]nathy. Panel Fa st Reviewed date:11/14/2023 05:01:48 PM Interpretation: Performing Lab:[facility], [address] [place] [address] Notes/Report: Sodium 143 135-145 mmol/L Potassium 4.1 3.3-5.1 mmol/L Chloride 107 96-108 mmol/L Carbon Dioxide 24 22-29 mmol/L Anion Gap 16 12-20 Blood Urea Nitrogen 13 9-16 mg/dL Creatinine 0.66 0.5-1.4 mg/dL Estimated Glomerular Filt Rate > 60 NOTE: For -Ugand[place] individuals, multiply the result by 1.210. Chronic [...] Panel Reviewed date:11/14/2023 05:01:48 PM Interpretation: Performing Lab:[facility], [address] [place] [address] Notes/Report: Triglycerides 165 <150 mg/dL Desirable Triglyceride: [...] Duration) Notes Start Date End Date Status Azelastine-Fluticasone 137-50 MCG/ACT 1 spray in each nostril Nasally Twice a day Active Fluticasone Furoate 100 MCG/ACT 1 puff Inhalation Once a day Active Albuterol Sulfate HFA 108 (90 Base) MCG/ACT 1 puff as needed Inhalation every 4 hrs Active Claritin 10 MG 1 tablet Orally Once a day Active Zoryve 0.3 % 1 application Assurance Senior Manager Insurance ally Once a day Active Benzonatate 100 MG TAKE 1 CAPSULE BY [facility] EVERY 8 HOURS NEEDED FOR COUGH Oral Active Pravastatin Sodium 80 MG 1 tablet Orally Once a day Active Carvedilol 6.25 MG Orally Twice a day Active Omeprazole 20 MG 1 capsule 30 minutes before morning meal Orally Twice a day Active hydrALAZINE HCl 25 MG 1 tablet with food Orally twice a day Active Sertraline HCl 25 MG 1/2 tablet for a we ek, then 1 tablet after Oral Once a day Active LORazepam 1 MG 1 1/2 tablet at bedt al as needed Oral Twice a day Active Social History Tobacco Use: [...] Problem Status W/U Status Risk Notes Problem 6162875 Former smoker (Z87.891) Active confirmed She seems highly motivated not to smoke and we discussed strategies for prevention of relapse in times of stress and illness. Problem 340215283 Fibromyalgia (M79.7) Active confirmed She has occasional low-grade abdominal discomfort. Problem 882608978152 Type 2 diabetes mellitus with other specified complication (E11.69) Active confirmed She will continue on current therapy. Her fasting glucose levels have been under 150. She has been compliant with her medication. Problem 096359480 Other obesity (E66.8) Active confirmed Her body mass index is 30. We have discussed her weight loss strategy. We discussed diet and nutrition. We made a plan to lose weight at a rate of one half of a pound per week. Problem 20714231 Hyperlipidemia, unspecified (E78.5) Active confirmed Her lipids are well controlled and she will continue on her current regimen. Problem 03839591 Age-related osteoporosis without current pathological fracture (M81.0) Active confirmed She is asymptomatic at this time. Problem 49984755 Essential hypertension (I10) Active confirmed Her blood pressure is controlled and no change in her regimen as necessary. Problem 875184358 Gastroesophageal reflux disease without esophagitis (K21.9) Active confirmed She has occasional reflux, well-controll ed medication and no other therapy is necessary at this time. Problem Anemia, unspecified type (D64.9) Active confirmed She has a mild microcytic anemia with a ferritin over 100. The microcytosis is new. She'll be followed carefully. It does not require treatment at this time. 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 Vital Signs Heart Rate 76 /min 10/04/2024 Temperature 98.1 degrees Fahrenheit 10/04/2024 Blood pressure diastolic 79 mm Hg 10/04/2024 Height 60 in 10/04/2024 Blood pressure systolic 148 mm Hg 10/04/2024 Weight 157 lbs 10/04/2024 BMI 30.66 kg/m2 10/04/2024 Encounters Encounter Location Date Provider Diagnosis Fabrice Crain III, MD [address] [place] [address] [place] [address] 10/04/2024 Fabrice Crain Malignant neoplasm o f lower lobe of left lung C34.32 Fabrice Crain III, MD [address] [place] [address] [place] [address] 12/01/2023 Fabrice Palominone Malignant neoplasm o f lower lobe of left lung C34.32 ; Essential hypertension I10 ; Fibromyalgia M79.7 ; Type 2 diabetes mellitus with other specified complication E11.69 ; Hyperlipidemia, unspecified E78.5 ; Age-related osteoporosis without current pathological fracture M81.0 ; Gastroesophageal reflux disease without esophagitis K21.9 ; Former smoker Z87.891 and Other obesity E66.8 Fabrice Crain III, MD [address] [place] [address] [place] [address] 04/05/2024 Fabrice Crain Malignant neoplasm o f lower lobe of left lung C34.32 ; Former smoker Z87.891 ; Gastroesophageal reflux disease without esophagitis K21.9 ; Essential hypertension I10 ; Type 2 diabetes mellitus with other specified complication E11.69 ; Hyperlipidemia, unspecified E78.5 and Age-related osteoporosis without current pathological fracture M81.0 Fabrice Crani III, MD [address] [place] [address] [place] [address] 10/11/2023 Fabrice Crain Malignant neoplasm o f lower lobe of left lung C34.32 Fabrice Crain III, MD [address] [place] [address] [place] [address] 10/16/2023 Fabrice Crain Assessments Encounter Date Diagnosis (ICD Code) Assessment Notes Treat ment Notes Treatment Clinical Notes 10/04/2024 Malignant neoplasm o f lower lobe of [...] Details Provider Name:Fabrice Crain, 04/11/2025 10:00:00 AM, [address] [place] [address] STEFANY BROWN, [place], [address], Insurance Providers Payer Name Payer Address Payer Phone Subscriber Number Group Number Insured Name Patient Relationship to Insured Coverage Start Date Coverage End Date MEDICARE NGS [address] [place] [phone] [id number] TREY TEE Self - patient is the insured [address] [place] [address] [id number] TREY TEE Self - patient is the insured Medical (General) History Medical History History ICD Code Essential hypertension I10 Fibromyalgia M79.7 hiatal hernia hyperlipidemia osteoarthritis diabetes mellitus essential hypertension osteoporosis GERD overweight former smoker 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 Blanchard 2013 Bladder suspention 1992 choleycystectomy 2005 Tubal ligation 1985 Hospitalization History Reason Date(Month/Year) Hospitalization for ' s parkinson's, alzheimer's, and dementia - september, year
--- OUTSIDE RECORDS SUMMARY | 2024-10-04 11:05 | XMS_ITS ---
Author Organization [facility] [place] Address [address] [facility] [address] Care Team Providers Care Ward Service Supervisor Name Role Phone Dannie Huang MD Primary Care Provider Radha Last Unavailable [phone] Allergies Allergen (clinical drug ingredient) Drug/Non Drug [...] Ordered Date Performed Result Body Sit e 11667-CJOOOLQ NAIL, 6 OR MORE 06/03/2024 N/A 27573-AHZO SKIN LESIONS, OVER 4 06/03/2024 N/A Encounters Encounter Location Date Provider Diagnosis [facility] [place] [address] [place] [address] 06/03/2024 Radha Weir Type 2 diabetes mellitus with diabetic polyneuropathy E11.42 and Tinea unguium B35.1 Assessments Encounter Date Diagnosis (ICD Code) Assessment Notes Treatment Notes Treatment Clinical Notes Section Notes 06/03/2024 Type 2 diabetes mellitus with diabetic polyneuropathy (ICD-10 - E11.42) 06/03/2024 Tinea unguium (ICD-10 - B35.1) Plan Of Treatment Pending Test Test Name Order Date 11624-HVIJKRU NAIL, 6 OR MORE 06/03/2024 06246-BJME SKIN LESIONS, OVER 4 06/03/20 24 Next Appt Details Follow Up: 4 Months, Reason: Provider Name:Malik Shirley MorejonStarr , 10/08/2024 11:00:00 AM, [address] [place] [address], [address], Procedure Notes * Category Sub-Category Detail Notes [...] use of a nail nipper and/or dremel-type eyeglass lens grinder, to a more viable healthy nail [...] to maintain effectiveness in symptomatic relief - 09065 Keratoma Treatment Parring or Cutting o f [...] instrumentation by the physician of record - 53671 Progress Notes * Ahsan CANDELARIOB:[birth year] (79 yo F)Acc No.[id number]:06/03/2024 Progress Note Patient:?Julienne CANDELARIO Provider:?Radha Weir DPM :1945???Age:79 Y???Sex:Female D ate:06/03/2024 Address:[address] [place], [place] [address] Pcp:Dannie Huang MD Subjective: * Chief Complaints: [...] 1985endoscopy 2013Lungbectomy 04/2023 * Hospitalization/Major Diagno stic Procedure:?[facility] for 2 day stay , for chest pain, high blood pressure and a head bump 03/2013C - Fell / concousin 01/07/17[facility] /PCP- [...] status: . 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 * Medications:?TakingTussin Al legra Extra [...] T5.?Vascular: ?DP PULSES (B):??2/4, B/L.?PT PULSES (B):? 1, B/L.?CAPILLARY FILL TIME:?3 secs. per digit, b/l.?TROPHIC [...] use of a nail nipper and/or dremel-type eyeglass lens grinder, to a more viable healthy nail [...] to maintain effectiveness in symptomatic relief - 33920.?Keratoma Treatment:?Parring or Cutting of Benign Hyperkeratotic Lesion(s)?(-57) [...] instrumentation by the physician of record - 05219.? * Procedure Codes:?55929 DEBRI DE NAIL, 6 OR MORE, Modifiers: XS 54417 TRIM SKIN LESIONS, OVER 4, Modifiers: XS * Follow Up:?4 Months * Images: * Sign off status: Completed true * Provider:?Radha Weir DPM Date:? Generated for Bryan lee/Emily/eTransmsharon on:?10/04/2024 11:05 AM EDT History and Physical Notes * [...]
--- OUTSIDE RECORDS SUMMARY | 2024-10-04 11:05 | XMS_ITS ---
Author Organization Fabrice Crain III, MD Address [address] [facility] [place] [address] Care Team Providers Care Meal Miller Name Role Phone Dannie Huang MD Primary Care Provider Fabrice Butcher Unavailable [phone] Allergies Allergen (clinical drug ingredient) Drug/Non Drug [...] Benzonatate 100 MG TAKE 1 CAPSULE BY [facility] EVERY 8 HOURS NEEDED FOR COUGH Oral Active Albuterol Sulfate HFA 108 (90 Base) MCG/ACT 1 puff as needed Inhalation every 4 hrs Active Zoryve 0.3 % 1 application Medical Transcription ally Once a day Active LORazepam 1 [...] Problem Status W/U Status Risk Notes Problem 812055713 Other obesity (E66.8) Active confirmed Her body [...] Provider Diagnosis Fabrice Crain III, MD [address] [place] [address] [place] [address] 12/01/2023 Fabrice Crain Malignant neoplasm o f [...] Benzonatate 100 MG TAKE 1 CAPSULE BY [facility] EVERY 8 HOURS NEEDED FOR COUGH Oral Albuterol Sulfate HFA 108 (9 0 Base) MCG/ACT 1 puff as needed Inhalation every 4 hrs Zoryve 0.3 % 1 application Medical Transcription ally Once a day LORazepam 1 MG [...] OV Provider Name:Fabrice Crain, 04/11/2025 10:00:00 AM, [address] [place] [address] STEFANY BROWN, [place], [address], Progress Notes * JUVENTINO CANDELARIO:[birth year] (78 yo F)Acc No.[id number]:12/01/2023 Progress Notes Patient:?TREY CANDELARIO Provider:?Fabrice Crain MD :1945???Age:78 Y???Sex:Female D ate:12/01/2023 Address:[address] [place], [place] [address] Pcp:Dannie Huang MD Subjective: * Chief Complaints: [...] mg/dL) 52 (Ref Range: mg/dL) * Lab:[facility] [place] Pane l Fast * Order Date 11/13/2023 [...] Provider:?Fabrice Crain MD Date:?11/04 Generated for Bryan lee/Emily/Sher on:?10/04/2024 11:04 AM EDT History and Physical Notes * HPI (History of Present Illness) Category Sub-Category Detail Notes COVID-19 Screening Questions Have you had any new onset fever, chills, cough, congestion, sore throat, shortness of breath, muscle aches?: No Have you been exposed to the virus with n the last 10 days?: No Have you travelled internationally in [facility] last 10 days?: No Have [...]
--- OUTSIDE RECORDS SUMMARY | 2024-10-04 11:05 | XMS_ITS | Patient Health Record ---
Author Organization [facility] Address [address] [place] [address] Care Team Providers Care Sales Account Manager Name Role Phone Dannie Huang MD Primary Care Provider Fabrice Smiley [phone] Allergies Allergen (clinical drug ingredient) Drug/Non Drug Allergy documented on EMR Reaction Allergy Type Onset Date Status lactose Lactose (Intolerance) Unknown Drug Allergy Active niacin Niacin rash Drug Allergy Active cortizone injections (uncoded) elevated bs and bp Allergy Active Results Component Value Reference Range Notes Glucose, Whole Blood Reviewed date:10/27/2023 05:59:32 PM Interpretation: Performing Lab:[facility], [address] [place] [address] Notes/Report: Glucose, Whole Blood 154 60-115 mg/dL METER # : [id number] Pathology Reviewed date:11/05/2023 09:43:00 PM Interpretation: Performing Lab:[facility], [address] [place] [address] Notes/Report: ---- Name: Jesse Candelario I Age/Sex: 78/F : 1945 Unit#: [id number] Attend Dr: Fabrice Blanchard Re10/27/23 Status : [facility] Location: [facility] Disch: ---- SPEC : [id number] RECD : 10/27/23-1155 STATUS: SILVIA JACKSON NUM: [id number] JUAN CARLOS: 10/27/23-1051 [facility] DR: Fabrice Blanchard ENTERED: 10/27/23-05 05 SP [...] Candelario I Age/Sex: 78/F : 1945 Unit#: [id number] Attend Dr: Fabrice Blanchard Re10/27/23 Status : [facility] Location: [facility] Disch: ---- SPEC : [id number] RECD : 10/27/23-1155 STATUS: SILVIA JACKSON NUM: [id number] JUAN CARLOS: 10/27/23-105 [facility] DR: Fabrice Blanchard ENTERED: 10/27/23- 01 SP TYPE: Surgical OTHR DR: Dannie Huang MD ORDERED: MARILU Stain/9Pam L4/3 Copies To: Dannie Huang MD [address] [place] [address], [address] [place] [address] Fabrice Blanchard [address] [place] [address] [address] [place] [address] ---- Signed (signature on file) Paulina Santiago [...] Problem Gastro-esophage al reflux disease without esophagitis (563451355) Gastro-esophageal reflux disease without esophagitis (K21.9) Active confirmed Problem 028253350 Encounter for screening for malignant neoplasm of colon (Z12.11) Active confirmed Problem 544845047 History of adenomatous polyp of colon (Z86.010) Active confirmed Problem Diverticular disease of colon (217416986) Diverticulosis of large intestine without perforation or abscess without bleeding (K57.30) Active confirmed Problem 368495918 Generalized abdominal pain (R10.84) Active confirmed Problem 892781866 Gastroesophageal reflux disease, esophagitis presence not specified (K21.9) Active confirmed Problem 43695732 Irritable bowel syndrome with both constipation and diarrhea (K58.2) Active confirmed Problem Chronic cough (85310021) Chronic cough (R05.3) Active confirmed Encounters Encounter Location Date Provider Diagnosis [facility] [address] [place] [id number] 10/27/2023 Fabrice Blanchard Encounter for screen ing colonoscopy Z12.11 ; Colon polyps K63.5 ; Diverticulosis of large intestine without perforation or abscess without bleeding K57.30 ; Other hemorrhoids K64.8 ; Hiatal hernia K44.9 and Gastro-esophageal reflux disease without esophagitis K21.9 [facility] [address] [place] [address] 11/03/2023 Fabrice Blanchard Assessments Encounter Date Diagnosis [...] OF [place] [address] [place] [address] [id number] GIANNA ZTREY Self - patient is the insured [facility] [address] [place] [address] [id number] TREY TEE Self - patient is the insured Medical (General) History Medical History History ICD Code Irritable bowel syndrome ? hx of ulcer disease in the Colonoscopy 10-14-2008-negati ve except diverticulosis and internal hemorrhoids Colon polyps-tubular adenomas removed in 2001 and 2004 GERD--EGD in 1994 neg-Bx neg for H.pylor i NIDDM fibromyalgia hyperlipidemia hypertension Denies VA,CVA,Lung disease,renal disease EGD in 10/2012--neg except for a small HH --no celiac disease, no H.pylori Colonoscopy 08/2013 and in --negative except for sigmoid diverticulosis and internal hemorrhoids Lung cancer with surgery as below in 2022 Surgical History Surgery Date(Month/Year) bladder suspension 1992 cholecystectomy 2003 tubal ligation 1985 LLL lung resection for cancer-Dr. Shaffer at [facility] 04/07/2023
--- OUTSIDE RECORDS SUMMARY | 2024-10-04 11:06 | XMS_ITS ---
Author Organization [facility] Address [address] [place] [address] Care Team Providers Care Manager Wellness Name Role Phone Dannie Huang MD Primary Care Provider Radha Last [phone] REASON FOR VISIT appt 09/26/24 Encounters Encounter Location Date Provider Diagnosis [address] [address] 09/24/2024 Radha Weir Plan Of Treatment Next Appt Details Provider Name:Malik Clements , 10/08/2024 11:00:00 AM, [address] [place], [address], Progress Notes * KEVIN JesseaDOB:[birth year] (79 yo F)Acc No.[id number]:09/24/2024 Patient:?Julienne CANDELARIO :1945???Age:79 Y???Sex:Female Address:[address] [place] [address] [place], [address] * true * Date:? Generated for Printi ng/Faxing/eTransmitting on:?10/04/2024 11:06 AM EDT
--- OUTSIDE RECORDS SUMMARY | 2024-10-04 11:06 | XMS_ITS | Clinical Summary ---
Author Organization [facility] Address [address] [place] [address] Phone Care Team Providers Care Catalyst Operator Name Role Phone Dannie Huang MD Primary Care Provider [phone] Allergies Active Allergy Reactions Criticality Noted Date [...] and how their size shape and change manager time affect her level of suspicion for [...] N/A PROCEDURE: HISTORICAL COLONOSCOPY ESOPHAGOGASTRODUODENOSCOPY N/A PROCEDURE: NV ESOPHAGOGASTRODUODENOSCOPY TRANSORAL DIAGNOSTIC CHOLECYSTECTOMY N/A PROCEDURE: HISTORICAL CHOLECYSTECTOMY TUBAL LIGATION PROCEDURE: HISTORICAL TUBAL LIGATION OTHER SURGICAL HISTORY 04/07/2023 Left PROCEDURE: NV THORACOSCOPY W/THERA WEDGE RESEXN INITIAL UNILAT; COMMENT: [...] V28) DX:DM2 (diabetes mellitus, t ype 2) ([facility]) Anemia DX:Anemia Mild intermittent asthma, uncomplicated DX:Mild [...] Upcoming Encounters Date Type Department Care Team ([facility] st Contact Info) Description 10/21/2024 11:00 AM EDT Appointment [facility] CT Scan [address] [place] [address] 10/31/2024 11:15 AM EDT Office Visit Thoracic Surgery - [place] [address] [facility] [address] [place] [address] Cata Lebron PA [address] [facility] [place] [address] Health Maintenance Due Date Last Done Comments [...] age to complete this topic Insurance MEDICARE [facility] [address] [place] [id number] Care Teams Catalyst Operator Relationship Specialty Start Date End Date Dannie Huang MD [address] [place] [address] [address] [place] PCP - General 03/22/18
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
--- OUTSIDE RECORDS SUMMARY | 2024-10-04 11:06 | XMS_ITS ---
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 Vital Signs Temperature 97.4 degrees Fahrenheit 04/05/20 24 Blood pressure systolic 138 mm Hg 04/05/20 24 Blood pressure diastolic 77 mm Hg 024 Heart Rate 79 /min 04/05/2024 Height 60 in 04/05/2024 Weight 161 lbs 04/05/2024 BMI 31.44 kg/m2 04/05/2024 Encounters Encounter Location Date Provider Diagnosis Fabrice Crain III, MD [address] [place] [address] [place] [address] 04/05/2024 Fabrice Crain Malignant neoplasm o f [...] a day Zoryve 0.3 % 1 application Farm Hand ally Once a day Benzonatate 100 MG TAKE 1 CAPSULE BY [facility] EVERY 8 HOURS NEEDED FOR COUGH Oral [...] check-up Provider Name:Fabrice Crain, 04/11/2025 10:00:00 AM, [address] [place] [address], [address], Progress Notes * KHOA CANDELARIOADOB:[birth year] (79 yo F)Acc No.[id number]:04/05/2024 Progress Notes Patient:?TREY CANDELARIO Provider:?Fabrice Crain MD :1945???Age:79 Y???Sex:Female D ate:04/05/2024 Address:[address] [place] [address] [facility] Pcp:Dannie Huang MD Subjective: * Chief Complaints: [...] Crain MD Date:?06/2023 Generated for Printi ng/Farubeng/eTransmitting on:?10/04/2024 11:05 AM EDT History and Physical [...]
--- OUTSIDE RECORDS SUMMARY | 2024-10-04 11:06 | XMS_ITS ---
Author Organization Fabrice Crain III, MD Address [address] [place] [address] Care Team Providers Care Director Toxicology Name Role Phone Dannie Huang MD Primary Care Provider Fabrice Butcher Unavailable [phone] Allergies Allergen (clinical drug ingredient) Drug/Non Drug Allergy documented on EMR Reaction Allergy Type Onset Date Status cortisone Cortisone elevated BP and Glucose Drug Allergy Active niacin Niacin Unknown Drug Allergy Active Lactose Unknown Drug Allergy Active REASON FOR VISIT Followup Medications Medication SIG (Take, Route, Frequency, Duration) Notes Start Date End Date Status Albuterol Sulfate HFA 108 (90 Base) MCG/ACT 1 puff as needed Inhalation every 4 hrs Active Claritin 10 MG 1 tablet Orally Once a day Active Benzonatate 100 MG TAKE 1 CAPSULE BY [facility] EVERY 8 HOURS NEEDED FOR COUGH Oral [...] day Active Zoryve 0.3 % 1 application Manager Ship ally Once a day Active Social History [...] Additional Findings: Tobacco Non-User Ex-cigaret te smoker Vital Signs Temperature 98.1 degrees Fahrenheit 10/05/19 25 Blood pressure systolic 148 mm Hg 10/05/19 25 Blood pressure diastolic 79 mm Hg 025 Heart Rate 76 /min 10/04/2024 Height 60 in 10/04/2024 Weight 157 lbs 10/04/2024 BMI 30.66 kg/m2 10/04/2024 Encounters Encounter Location Date Provider Diagnosis Fabrice Crain III, MD [address] [place] [address] [place] [address] 10/04/2024 Fabrice Crain Malignant neoplasm of lower lobe of left lung C34.32 Assessments Encounter Date Diagnosis (ICD Code) Assessment Notes Treatment Notes Treatment Clinical Notes 10/04/2024 Malignant neoplasm of lower lobe of left lung (ICD-10 - C34.32) There is no sign of recurrent disease at this time. Incisions are healed and the pain is slowly resolving Plan Of Treatment Medication Medication Name Sig Start Date Stop Date Notes Albuterol Sulfate HFA 108 (9 0 Base) MCG/ACT 1 puff as needed Inhalation every 4 hrs Claritin 10 MG 1 tablet Orally Once a day Benzonatate 100 MG TAKE 1 CAPSULE BY [facility] EVERY 8 HOURS NEEDED FOR COUGH Oral [...] a day Zoryve 0.3 % 1 application Manager Ship ally Once a day Next Appt Details Provider Name:Fabrice Crain, 04/11/2025 10:00:00 AM, [address] [facility] [address], [place], [address], Progress Notes * GEMMA CANDELARIOB:[birth year] (79 yo F)Acc No.[id number]:10/04/2024 Progress Notes Patient:?TREY CANDELARIO Provider:?Farbice Crain MD :1945???Age:79 Y???Sex:Female D ate:10/04/2024 Address:[address] [place], [place] [id number] Pcp:Dannie Huang MD Subjective: * Chief Complaints: * ???1. Followup. * HPI: ???COVID-19 Screening:?fani parkinsons, being alone is horrible,? pn natalie, sold house,? apt [place], 10/08 counts include [facility] beds [facility] lungs, dr. solares gave her sertraline and tid lorazepam. ?Questions?Have you had any new onset fever, chills, cough, congestion, sore throat, shortness of breath, muscle aches??No * ROS:?General/Constitutional:?pain?only normal aches and pains.?Chills?denies.?Fatigue?admits.?Fever?denies.?ENT:?Decreased hearing?denies.?Respiratory:?Cough?denies.?Cardiovascular:?Chest pain with exertion?denies.?Dyspnea on exertion?denies.?Shortness of breath?denies.?Gastrointestinal:?Constipation?denies.?Decreased appetite?denies.?Diarrhea?denies.?Heartburn?denies.?Nausea?denies.?Rectal bleeding?denies.?Vomiting?denies.?Hematology:?bruising?denies.?petechiae?denies.?Swollen glands?none have been noted.?Genitourinary:?Frequent urination?denies.?Musculoskeletal:?Muscle aches?denies.?Painful joints?denies.?Sciatica?denies.?Weakness?denies.?Skin:?Itching?denies.?Rash?denies.?Skin lesion(s)?denies.?Neurologic:?Difficulty speaking?denies.?Dizziness?denies.?Headache?denies.?Low back pain?denies.?Psychiatric:?Depressed mood?denies.? * Medical History:?Essential h ypertension, Fibromyalgia, Hiatal hernia, Hyperlipidemia, Osteoarthritis, Diabetes mellitus, Essential hypertension, Osteoporosis, GERD, Overweight, Former smoker, Stage I adenocarcinoma of the lung, Left lower lobe, April 2023, [facility]. * Surgical History:?Tubal liga tion 1985, choleycystectomy 2005, Bladder suspention 1992, colonoscopy, Dr. Blanchard 2013, Lung surgery, Left lower lobe 04/07/2023. * Hospitalization/Major Diagno stic Procedure:?Hospitalization for 's parkinson's, alzheimer's, and dementia - september, current year . * Family History:?Father: dece ased 62 yrs, [...] not employed at the current time. * Medications:?Taking Fluticas one Furoate 100 MCG/ACT Aerosol Powder Breath Activated 1 puff Inhalation Once a day , Taking Azelastine-Fluticasone 137-50 MCG/ACT Suspension 1 spray in each nostril Nasally Twice a day , Taking LORazepam 1 MG Tablet 1/2 in the morning, 1/2 in the afternoon, 1 in the evening Oral 3 times a day , Taking Carvedilol 6.25 MG Tablet Orally Twice a day , Taking Pravastatin Sodium 80 MG Tablet 1 tablet Orally Once a day , Taking hydrALAZINE HCl 25 MG Tablet 1 tablet with food Orally twice a day , Taking Omeprazole 20 MG Capsule Delayed Release 1 capsule 30 minutes before morning meal Orally Twice a day , Taking Claritin 10 MG Tablet 1 tablet Orally Once a day , Taking Albuterol Sulfate HFA 108 (90 Base) MCG/ACT Aerosol Solution 1 puff as needed Inhalation every 4 hrs , Taking Benzonatate 100 MG Capsule TAKE 1 CAPSULE BY MOUTH EVERY 8 HOURS NEEDED FOR COUGH Oral , Taking Zoryve 0.3 % Cream 1 application Externally Once a day , Taking Sertraline HCl 25 MG Tablet 1/2 tablet for a week, then 1 tablet after Oral Once a day , Medication List reviewed and reconciled with the patient * Allergies:?Niacin, Lactose, Cortisone: elevated BP and Glucose. Objective: * Vitals:?Ht: 60, Wt:157, BMI: 30.66, BP:148/79, HR:76, Temp:98.1, Ht-cm: 152.4, Wt-k.21. * Examination: ???General Examination: ?GENERAL APPEARANCE:?pleasant, well nourished, well developed, in no acute distress, calm and relaxed.?HEAD:?atraumatic, normocephalic.?EYES:?eomi, perrla, anicteric, conjugate.?EARS:?normal.?NOSE:?septum intact.?ORAL CAVITY:?normal, unremarkable.?NECK/THYROID:?no jugular venous distention, no carotid bruit, thyroid normal.?LYMPH NODES:?no enlarged lymph nodes,spleen normal.?SKIN:?no suspicious lesions, anicteric.?HEART:?no clicks, gallops, murmurs, or rubs, regular rhythm, S1, S2 normal, no s3, or vascular bruits.?LUNGS:?clear to auscultation .?BREASTS:??no masses palpable bilaterally.?ABDOMEN:?bowel sounds normal, no ascites, no organomegaly, no mass.?RECTAL EXAM:?not examined.?MUSCULOSKELETAL:?extremities unremarkable, no clubbing, cyanosis or edema.?PERIPHERAL PULSES:?normal.?NEUROLOGIC:?alert and oriented, cranial nerves 2-12 grossly intact, deep tendon reflexes 2+ symmetrical, motor strength normal upper and lower extremities, sensory exam intact.?PSYCH:?alert, oriented.? Assessment: * Assessment: 1.?Malignant neoplasm of low er lobe of left lung - C34.32???Notes :There is no sign of recurrent disease at this time. Incisions are healed and the pain is slowly resolving??? Plan: * Treatment: * Preventive Medicine:? ??Counseling:?Care goal follow-up plan:?Counseling [...] done: Medical or Other reason not done * Images: * The named appointment provid er may or may not be the originator of this progress note, and it is not deemed complete until electronically signed by the appointment provider. Sign off status: Pending * Provider:?Fabrice Crain MD Date:?07/2024 Generated for Emai jesus/Emily/eTdebbiesmitting on:?10/04/2024 11:06 AM EDT History and Physical Notes * HPI (History of Present Illness) Category Sub-Category Detail Notes COVID-19 Screening Questions Have you had any new onset fever, chills, cough, congestion, sore throat, shortness of breath, muscle aches?: No Examination Category Sub-Category Detail Notes General Examination GENERAL APPEARANCE: pleasant , well nourished, well developed, in no acute distress, calm and relaxed HEAD: atraumatic, normocep halic EYES: eomi, perrla, anicte livier, conjugate EARS: normal NOSE: septum intact NECK/THYROID: no jugular venous di stention, no carotid bruit, thyroid normal HEART: no clicks, gallops, murmurs, or rubs, regular rhythm, S1, S2 normal, no s3, or vascular bruits LUNGS: clear to auscultatio n ABDOMEN: bowel sounds normal, no ascites, no [...]
[2024-10-04 11:42] LABS: MANUAL DIFF FLAG NO
[2024-10-04 11:51] LABS: Basophils Percent Auto 0.6 % (0-2); Eosinophils Absolute Auto 0.1 X10*3/uL (0.0-0.4); Eosinophils Percent Auto 1.3 % (0-4); Hemoglobin 12.2 g/dl (12.0-16.0); Imm Gran Abs Auto 0.01 X10*3/uL (0.00-0.03); Imm Gran Pct Auto 0.2 % (0.0-0.4); Lymphocytes Absolute Auto 2.9 X10*3/uL (1.2-4.9); Lymphocytes Percent Auto 52.4 % (20-40); Mean Corpuscular HGB Conc 35.9 g/dl (31.0-35.0); Mean Corpuscular Volume 78.2 fL (80.0-98.0); Mean Platelet Volume 10.3 fL (9.4-12.3); Monocytes Absolute Auto 0.4 X10*3/uL (0.1-1.2); Monocytes Percent Auto 7.2 % (2-11); Neutrophils Absolute Auto 2.1 x10*3/uL (2.0-8.3); Neutrophils Percent Auto 38.3 % (45-73); Platelet Count 243 X10*3/uL (160-400); Red Blood Count 4.35 X10*6/uL (4.20-5.50); Red Cell Distribution Width 15.2 % (11.0-16.0); White Blood Count 5.4 X10*3/uL (4.8-10.8)
[2024-10-04 12:04] LABS: Estimated Average Glucose 140 mg/dL; Hemoglobin A1C 150.1695 umol/L; Hemoglobin A1c % 6.5 % (<6.0); Total Hemoglobin (HGBA1C) 3138.8839 umol/L
[2024-10-04 12:10] LABS: Alanine Aminotransferase 22 U/L (0-31); Albumin Level 3.9 g/dL (3.5-5.0); Alkaline Phosphatase 79 U/L (39-117); Anion Gap 11 (12-20); Aspartate Amino Transferase 23 U/L (5-31); Bilirubin Total 0.4 mg/dL (0.0-1.0); Blood Urea Nitrogen 14 mg/dL (9-16); Calcium 9.1 mg/dL (8.4-10.2); Carbon Dioxide 26 mmol/L (22-29); Chloride 107 mmol/L (96-108); Cholesterol 206 mg/dL (<200); Estimated Glomerular Filt Rate > 60; Glucose Random 140 mg/dL (60-115); HDL Cholesterol 61 mg/dL (>40); LDL Cholesterol Calculated 82 mg/dL (<100); Potassium 3.8 mmol/L (3.3-5.1); Sodium 140 mmol/L (135-145); Total Protein 7.2 g/dL (6.5-8.0); Triglycerides 316 mg/dL (<150)
[2024-10-04 12:31] LABS: Erythrocyte Sedimentation Rate 23 MM/HR (0-20)
[2024-10-05 06:23] LABS: Lyme Abs Screen <0.90 index
[2024-10-07 19:02] LABS: CRP High Sensitivity 2.7 mg/L
== END 2024-10-04 10:07 | disposition home or self-care (01) ==
LOC: HO.10HDL 10:06
PROVIDERS: Visit Provider Internal Medicine
DX: M25.50 Pain in unspecified joint (principal); E11.9 Type 2 diabetes mellitus without complications
CPT/HCPCS: 80053; 80061; 83036; 85025; 85652; 86141; 86617; 86618

== ENCOUNTER 2024-10-18 13:00 | Outpatient (RCR) | payer MEDICARE, OTHER, SELFPAY ==
--- NOTE | 2024-10-18 15:39 | MHC.PT.DC ---
[facility] [place] Office [place] Office [place] [facility] [address] Yohana Neal [address] [phone] F: [phone] F: [phone] F: [phone] F: [phone] Physical Therapy Discharge Report Diagnosis: R shoulder painful arc. Date of Surgery: Date of Evaluation: 09/20/24 Date of Discharge: 10/18/24 Treatments to Date: 6 Cancellations to Date: No Shows to Date: Discharge Status: Achieved Goals Improved Function Independent with HEP Discharge Summary: Julienne has been an active and motivated participant in therapy, she persists with some shoulder pain though she his met her therapeutic goals and is improved of her pain and function and she is I with her home program; we are in agreement with DC at this time. Electronically signed by: Bennie Bowden PT. Please sign and return to therapist. Thank you for your referral.
== END 2024-10-18 15:39 | disposition home or self-care (01) ==
LOC: HO.PT 13:00
PROVIDERS: Visit Provider Physician Assistant
DX: M75.101 Unspecified rotator cuff tear or rupture of right shoulder, not specified as traumatic (principal)
CPT/HCPCS: 97110; 97140; 97161

== ENCOUNTER → 2024-11-08 07:55 | Outpatient (REF) | payer MEDICARE, OTHER, SELFPAY ==
--- NOTE | ~2024-11-08 | NM_ITS ---
EXERCISE MYOCARDIAL PERFUSION STUDY INDICATION: Precordial chest pain to evaluate for myocardial ischemia TECHNIQUE: The patient was brought in for an exercise perfusion study on November 08, 2024. Patient performed exercise as per Raymundo protocol and was injected 25 mCi of sestamibi once target heart rate was achieved. Images were obtained using the SPECT gamma camera interlaced with the gating device. Images were obtained in the supine position. Resting perfusion study was performed on November 11, 2024. Patient was administered 25 mCi of sestamibi intravenously at rest. Images were then obtained in supine position. Images obtained without without CT attenuation. Total DLP 155 mGy-cm. Images were processed with the software and compared side to side in short axis, horizontal long axis and vertical long axis views. FINDINGS: Raw images were reviewed The stress perfusion study showed nonattenuated images show moderately to moderately reduced uptake in the basal and mid inferior as well as the inferolateral wall of the LV myocardium. Attenuated corrected images show normal uptake of radiotracer in all segments of the myocardium. The gated study shows normal LV systolic function with calculated LVEF of 73%. LV cavity is normal in size. The gated study shows normal systolic wall thickening and contraction of segments. Resting study shows no change in perfusion pattern compared to stress perfusion study. Gating at rest reveals normal systolic wall motion with ejection fraction at 58%. The findings are consistent with normal myocardial perfusion. NM/NM cardiolite stress test IMPRESSION: 1. Myocardial perfusion imaging study shows normal myocardial perfusion. 2. Gated LVEF is 73%. 3. Transient ischemic dilatation not present. EKG revealed [positive for ischemia. Electronically signed by: Shreyas Sparrow MD 11/11/2024 11:49 AM EDT
--- OUTSIDE RECORDS SUMMARY | 2024-11-08 07:56 | XMS_ITS ---
Author Organization [facility] Address [address] [place] [address] Care Team Providers Care Drivers' Cash Clerk Name Role Phone Dannie Huang MD Primary Care Provider Fabrice Smiley [phone] REASON FOR VISIT abdominal pain Encounters Encounter Location Date Provider Diagnosis [facility] [address] [place] [address] 08/29/2023 Fabrice Blanchard Plan Of Treatment No Information Progress Notes * TREY BROWN IDOB:1944 (79 yo F)Acc No.[id number]:08/29/2023 Progress Notes Patient:?TREY BROWN I Provider:?Fabrice Blanchard MD :1945???Age:78 Y???Sex:Female D ate:08/29/2023 Address:[address] [place] [address] [id number] Pcp:Dannie Huang MD Subjective: * Chief Complaints: [...] MD Date:? 024 Generated for Emai ng/Farubeng/eTransmitting on:?11/08/2024 07:56 AM EDT
--- NOTE | 2024-11-08 08:06 | CA_ITS ---
Acquisition Time: 2024-11-08 08:21:00 Total Exercise Time: 00:04:46 Test Indications: AORTIC STENOSIS Medications: SEE H&P Protocol: RIOS Max HR: 148 BPM 104% of Pred: 142 BPM Max BP: 170/90 mmHG Max Work Load: 4.6 METS Exercise stress test with exercise 4 mins 46 secs of Rios Protocol, held at stage 1 due to fatigue, achieving 101% MPHR, with reports of dizziness, SOB and fatigue, with isolated PACs and PVCs, with normotensive response to exercise. With ST depression inferiorly and anterolaterally meeting criteria for ischemia. In recovery, pt feeling back to baseline. ST segment improved. Nuclear images pending. Test reviewed with Dr. Murry. Referred By: Rufino Murry Electronically Signed By: Asaf Mcleod
== END ==
LOC: HO.CARD 07:55
PROVIDERS: PCP Internal Medicine; Visit Provider Internal Medicine
DX: R07.2 Precordial pain (principal)
CPT/HCPCS: 78452; 93017; A9500; J0280; J2785

== ENCOUNTER → 2024-11-08 08:06 | Outpatient (BNV) | payer MEDICARE, OTHER, SELFPAY | PROVIDERS: PCP Internal Medicine | DX: R06.02 Shortness of breath (principal); I49.1 Atrial premature depolarization; I49.3 Ventricular premature depolarization | CPT/HCPCS: 78452; 93016; 93018 ==

== ENCOUNTER 2024-11-13 13:13 | Outpatient (AMB) | payer MEDICARE, OTHER, SELFPAY ==
--- NOTE | 2024-11-13 13:18 | A.OFFVIS_ITS ---
Vital Signs 11/13/24 13:19 Height 5 ft 4 in Weight 158 lb 11.725 oz BMI 27.2 BP 120/78 Blood Pressure Location Lt brachial Position Sitting Pulse 78 Intake Visit Reasons: 3m follow up/Exercise mibi Intake Note: 3 month follow-up after mibi hearts doing ok Spinning Bath Person Required: No Allergies niacin [Niacin] Allergy (Mild, Verified 10/03/24 11:37) RASH lactose [Lactose] Adverse Reaction (Mild, Verified 10/03/24 11:37) DIARRHEA atorvastatin [Lipitor] Adverse Reaction (Unknown, Verified 10/03/24 11:37) Unknown celecoxib [Celebrex] Adverse Reaction (Unknown, Verified 10/03/24 11:37) Unknown simvastatin Adverse Reaction (Unknown, Verified 10/03/24 11:37) Unknown Medication List - Last Reconciled 11/13/24 by Asaf Mcleod NP albuterol sulfate 90 mcg/actuation 2 puffs PO Q4-6H PRN Arnuity Ellipta 100 mcg/actuation (fluticasone furoate) 1 inh inhalation DAILY NS azelastine 2 sprays intranasal BID benzonatate 100 mg PO Q8H PRN blood sugar diagnostic As directed blood-glucose meter (FreeStyle [place] Lite kit) As directed carvedilol 6.25 mg PO BID hydralazine 25 mg PO BID lancets (FreeStyle Lancets) As directed loratadine (Claritin) 10 mg PO DAILY lorazepam 3 mg (3 x 1 mg) PO DAILY omeprazole 20 mg PO BID pravastatin 80 mg PO DAILY HPI Comments Details: This is a 79-year-old female patient coming in for a follow-up visit. Patient was previously seen in the office for mild aortic stenosis and ongoing chest discomfort. Subsequently patient underwent a myocardial perfusion study. Today patient is here to discuss the results were it as she is very anxious about it. Patient continues to report mid chest pressure intermittently with exertion and on days when she is stressed. Patient notes that she has stress most of the times due to her has been stents back in May and having to move around since then. Patient reports that at times when she does gets the chest pressure, she does also get some shortness of breath. Patient reports that they go away after she sits down for a bit. Patient denies any other associated symptoms including palpitations, dizziness, orthopnea, PND, leg edema, presyncope, or syncope. Patient does note that she has some fibromyalgia pain in the same spot but she is able to differentiate this pain from the chest pressure she feels with exertion. Patient affirms her compliance with all her medications. [facility] Medical History Peptic ulcer Lung cancer Psoriasis Type 2 diabetes mellitus GERD (gastroesophageal reflux disease) Osteopenia Pulmonary nodule Depression Fibromyalgia IBS (irritable bowel syndrome) High cholesterol HTN (hypertension) Chronic cough Allergic rhinitis Cough due to bronchospasm Surgical History Hx of bladder repair surgery S/P lobectomy of lung History of tubal ligation History of esophagogastroduodenoscopy (EGD) History of laparoscopic cholecystectomy History of colonoscopy (~10/27/23) Family History Father Myocardial infarction Mother Diabetic coma Sister No problems noted. 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 Cognitive needs: No Hearing needs: No Vision needs: Yes (Rx glasses) Review of Systems Const Denies chills, Denies fatigue, Denies fever(s), Denies frequent falls, Denies weakness, Denies weight gain and Denies weight loss ENT Denies dizziness Card Denies chest pain, Denies leg edema, Denies lightheadedness, Denies palpitations, Denies dyspnea, Denies dyspnea on exertion, Denies orthopnea and Denies other (loss of consciousness) Resp Denies cough, Denies dyspnea and Denies dyspnea on exertion GI Denies hematochezia and Denies change in stool character Musc Denies abnormal gait, Denies muscle weakness, Denies numbness, Denies radiating pain into limb and Denies tingling Neuro Denies abnormal gait, Denies dizziness, Denies frequent falls, Denies numbness, Denies tingling and Denies weakness Endo Denies fatigue and Denies palpitations Physical Exam Vital Signs: Last Vital Signs Pulse 78 11/13/24 13:19 BP 120/78 11/13/24 13:19 BMI result Body Mass Index 27.2 Const General: cooperative, healthy appearing, comfortable and no acute distress Orientation/consciousness: patient oriented x3 HEENT Head: Yes normal to inspection Neck Neck: Yes normal visual inspection, Yes trachea midline and Yes supple Chest Chest palpation & inspection: normal inspection of the chest Resp Effort & Inspection: normal respiratory effort Auscultation: clear to auscultation bilaterally, no crackles, no rales, no rhonchi and no wheezes Cardio Jugular venous distension: no JVD Palpation: normal PMI Rate: regular rate Rhythm: regular rhythm Heart sounds: S1 normal heart sound present, S2 normal heart sound present, no click, no gallops, no murmurs and no rubs Peripheral pulses: Peripheral pulses 2+ throughout GI Inspection: Yes normal to inspection Palpation (GI): Soft to palpation Auscultation: normal bowel sounds Skin General skin exam: no rashes or lesions noted Neuro General: patient oriented x3 Extrem General: Yes normal to inspection, No no pedal edema and No calf tenderness Psych Appearance: grossly normal Mental Status: mental status grossly normal Speech and movement: Normal speech and movement present Assessment & Plan Assessment & Plan (1) Chest pain: Code(s): R07.9 - Chest pain, unspecified Category: Medical Plan: 11/08/2024-patient underwent a myocardial perfusion study which showed normal perfusion however for the stress portion of the test, patient had some ST- depression inferiorly and anterolaterally. Given her ongoing symptoms and findings of multivessel coronary calcifications on her chest CT, we will proceed with a coronary CTA to further evaluate the extent of coronary artery disease. Continue statin therapy. Most recent LDL at 82. Depending on findings of the coronary CTA, we may need to change her to a high-intensity statin. Ideally, goal of LDL less than 70. Patient can continue with her low dose baby aspirin for now. (2) Coronary artery calcification: Code(s): I25.10 - Atherosclerotic heart disease of [place] coronary artery without angina pectoris Plan: As above. (3) Non-rheumatic aortic stenosis: Code(s): I35.0 - Nonrheumatic aortic (valve) stenosis Category: Medical Plan: 03/15/2024-echo study showed a normal LV systolic function with an ejection fraction between 65-70% with impaired relaxation filling pattern with mild LVH, mild aortic stenosis, and upper limits of normal aortic size. Clinically stable and euvolemic. We will repeat echo in a year. Advised heart healthy diet, regular exercise, med compliance, and management of vascular risk factors. Emphasized on stress medication strategies. Follow-up in 3 months after completion of the coronary CTA. In the interim, patient will call the office with any concerns or change in symptoms. Advised to seek ER care in case of exertional chest pain not resolved with rest. This note was generated using voice recognition software. While every effort has been made to ensure accuracy and proper bowling ball weigher and packer, there may be occasional errors that could affect the content or meaning of the described symptoms. Orders: Orders Basic Metabolic Panel Today R07.9 - Chest pain, unspecified CT Cardiac Coronary Angio Today R07.9 - Chest pain, unspecified Coding Level of Care Code Est Pt Level 4 (62888) Complex EM visit Add On G2211 Diagnoses Chest pain R07.9 Coronary artery calcification I25.10 Non-rheumatic aortic stenosis I35.0 Time Spent (min) 32 Comment Time spent in reviewing the chart, test results, assessment, counseling and documentation.
[2024-11-13 13:19] VITALS: BP 120/78; PULSE 78; BMI 27.2
--- OUTSIDE RECORDS SUMMARY | 2024-11-13 14:53 | XMS_ITS ---
Author Organization [facility] Address [address] [place] [address] Care Team Providers Care Carpet Weaver Name Role Phone Dannie Huang MD Primary Care Provider Fabrice Smiley [phone] REASON FOR VISIT abdominal pain Encounters Encounter Location Date Provider Diagnosis [facility] [address] [place] [address] 08/29/2023 Fabrice Blanchard Plan Of Treatment No Information Progress Notes * TREY BROWN IDOB:1944 (79 yo F)Acc No.[id number]:08/29/2023 Progress Notes Patient:?TREY BROWN I Provider:?Fabrice Blanchard MD :1945???Age:78 Y???Sex:Female D ate:08/29/2023 Address:[address] [place] [address] [id number] Pcp:Dannie Huang MD Subjective: * Chief Complaints: [...] MD Date:? 024 Generated for Printi ng/Faxing/eTransmitting on:?11/13/2024 02:52 PM EDT
== END 2024-11-13 14:02 | disposition home or self-care (01) ==
LOC: HO.HCS 13:13
PROVIDERS: PCP Internal Medicine
DX: R07.9 Chest pain, unspecified (principal); I25.10 Atherosclerotic heart disease of native coronary artery without angina pectoris; I35.0 Nonrheumatic aortic (valve) stenosis
CPT/HCPCS: 99214; G2211

== ENCOUNTER → 2024-11-13 13:13 | Outpatient (BNVA) | payer MEDICARE, OTHER, SELFPAY | PROVIDERS: PCP Internal Medicine | DX: I25.10 Atherosclerotic heart disease of native coronary artery without angina pectoris (principal); I35.0 Nonrheumatic aortic (valve) stenosis; R07.9 Chest pain, unspecified | CPT/HCPCS: 99212 ==

== ENCOUNTER 2024-12-05 09:56 | Outpatient (AMB) | payer MEDICARE, OTHER, SELFPAY ==
--- OUTSIDE RECORDS SUMMARY | 2023-08-29 11:00 | XMS_ITS ---
Author Organization [facility] Address [address] [place] [address] Care Team Providers Care Refrigeration Engineer Name Role Phone Dannie Huang MD Primary Care Provider Fabrice Smiley [phone] REASON FOR VISIT abdominal pain Encounters Encounter Location Date Provider Diagnosis [facility] [address] [place] [address] 08/29/2023 Fabrice Blanchard Plan Of Treatment No Information Progress Notes * TREY BROWN IDOB:1944 (79 yo F)Acc No.[id number]:08/29/2023 Progress Notes Patient: TREY KOWALSKI I Provider: Tory Blanchard MD :1945 A ge:78 Y S ex:Female Date:08/29/2023 Address:[address] [place] [address] [id number] Pcp:Dannie Huang MD Subjective: * Chief Complaints: * 1 . [...] Blanchard MD Date: 0 08/29/2023 Generated for Emai ng/Faxing/eTransmitting on: 12/05/2024 10:31 AM EDT
--- OUTSIDE RECORDS SUMMARY | 2023-12-01 06:30 | XMS_ITS ---
Author Organization Fabrice Crain III, MD Address [address] [place] [address] Care Team Providers Care Salt Operator Name Role Phone Dannie Huang MD Primary Care Provider Fabrice Butcher Unavailable [phone] Allergies Allergen (clinical drug ingredient) Drug/Non Drug Allergy documented on EMR Reaction Allergy Type Onset Date Status cortisone Cortisone elevated BP and Glucose Drug Allergy Active Niacin Unknown Drug Allergy Active Lactose Unknown [...] Benzonatate 100 MG TAKE 1 CAPSULE BY [facility] EVERY 8 HOURS NEEDED FOR COUGH Oral Active Albuterol Sulfate HFA 108 (90 Base) MCG/ACT 1 puff as needed Inhalation every 4 hrs Active Zoryve 0.3 % 1 application Fish Hatchery Supervisor ally Once a day Active LORazepam [...] Problem Status W/U Status Risk Notes Problem [id number] Other obesity (E66.8) Active confirmed Her body [...] Date Provider Diagnosis Fabrice Crain III, MD [address] [place] [address] [place] [address] 12/01/2023 Fabrice Crain Malignant neoplasm o f [...] Benzonatate 100 MG TAKE 1 CAPSULE BY [facility] EVERY 8 HOURS NEEDED FOR COUGH Oral Albuterol Sulfate HFA 108 (9 0 Base) MCG/ACT 1 puff as needed Inhalation every 4 hrs Zoryve 0.3 % 1 application Fish Hatchery Supervisor ally Once a day LORazepam 1 [...] OV Provider Name:Fabrice Crain, 04/11/2025 10:00:00 AM, [address] [place] [address] STEFANY BROWN, [place], [address], Progress Notes * JUVENTINO CANDELARIO:[birth year] (78 yo F)Acc No.[id number]:12/01/2023 Progress Notes Patient: TREY KOWALSKI Provider: Tory Crain MD :1945 A ge:78 Y S ex:Female Date:12/01/2023 Address:[address] [place], [place] [address] [place], [id number] Pcp:Dannie Huang MD Subjective: * Chief Complaints: [...] mg/dL) 52 (Ref Range: mg/dL) * Lab:Comprehensive [place]. Pane l Fast * Order Date 11/13/2023 [...] 0 12/01/2023 Generated for Bryan lee/Emily/eTransmitting on: 0 12/05/2024 10:31 AM EDT History and Physical Notes * HPI (History of Present Illness) Category Sub-Category Detail Notes COVID-19 Screening Questions Have you had any new onset fever, chills, cough, congestion, sore throat, shortness of breath, muscle aches?: No Have you been exposed to the virus withi n the last 10 days?: No Have you travelled internationally in last 10 days?: No Have you been [...]
--- OUTSIDE RECORDS SUMMARY | 2024-09-26 11:45 | XMS_ITS ---
Author Organization [facility] Address [address] [facility] [place] [address] Care Team Providers Care Director Perioperative Name Role Phone OmarJessica castroah Primary Care Provider Malik Albert Unavailable [phone] Radha Weir Unavailable [phone] Allergies Allergen (clinical drug ingredient) Drug/Non Drug [...] Active Encounters Encounter Location Date Provider Diagnosis [facility] [address] [address] 09/26/2024 Radha Weir Plan Of Treatment Next Appt Details Provider Name:Malik Clements , 01/10/2025 01:30:00 PM, [address] [place] [address], [phone], Progress Notes * Ahsan CANDELARIOB:[birth year] (79 yo F)Acc No.[id number]:09/26/2024 Progress Note Patient: Jesse KOWALSKIa Provider: Mikel Weir DPM :1945 A ge:79 Y S ex:Female Date:09/26/2024 Address:[address] [place], [place] [id number] Pcp:Karin Nelson Subjective: * Chief Complaints: * [...] 09/26/2024 Generated for Bryan lee/Emily/Reneaitting on: 0 12/05/2024 10:31 AM EDT
--- NOTE | 2024-12-05 09:59 | MHC.PC.OV ---
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 Required: No Accompanied by: Self / Same As Patient Allergies niacin (Niacin) Allergy (Mild, Verified 12/05/24 09:59) RASH lactose (Lactose) Adverse Reaction (Mild, Verified 12/05/24 09:59) DIARRHEA atorvastatin (Lipitor) Adverse Reaction (Unknown, Verified 12/05/24 09:59) Unknown celecoxib (Celebrex) Adverse Reaction (Unknown, Verified 12/05/24 09:59) Unknown simvastatin Adverse Reaction (Unknown, Verified 12/05/24 09:59) Unknown Tobacco use date assessed: 10/03/24 Dental Screening Dental Screen Date: 10/03/24 HPI HPI Comments History of Present Illness Details 79 year old female with a past medical history of lung cancer, mild aortic stenosis, IBS, GERD, asthma, DM presenting for follow up DM: not requiring medications. Last a1C 6.5%. Checking glucose. She is working on being more active and eating less sweets. She previously was on januvia CV: Patient is following with cardiology. Stress test completed. Will go for CTA. Polyarthralgia: seen 09/07/24 at walk in clinic with c/o Pain in Multiple joints. Pt reports Pain on B/L shoulders, Hips, Knees and Ankles. 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 Sh eis currently being followed by Ortho who has recommended Steroid injections. Pt report had Cortisone Injection on her right shoulder with no improvement. She is starting PT next week for the shoulders. Reports that Ibuprofen causes GI upset, Acetaminophen, Heat/Ice not working for her. She has an upcoming appointment with Electrical And Radio Aircraft Mechanic in May. She was placed on prednisone which did lessen the severity of the pain without total resolution. Patient has increased anxiety and depression since loss of her in May. She is currently taking lorazepam. She tried and did not tolerate zoloft or cymbalta. ROS see HPI PHYSICAL EXAM: GENERAL: Alert and oriented x 3. NAD EYES: EOMI. Anicteric. HENT: Moist mucous membranes. No scleral icterus. No cervical lymphadenopathy. LUNGS: Clear to auscultation bilaterally. CARDIOVASCULAR: Regular rate and rhythm. No murmur. No JVD. ABDOMEN: Soft, non-tender +bs EXTREMITIES: No edema. Non-tender. SKIN: No rashes or lesions. Warm. NEUROLOGIC: No focal neurological deficits. CN II-XII grossly intact PSYCHIATRIC: Cooperative. Appropriate mood and affect [facility] Medical History Peptic ulcer Lung cancer Psoriasis Type 2 diabetes mellitus GERD (gastroesophageal reflux disease) Osteopenia Pulmonary nodule Depression Fibromyalgia IBS (irritable bowel syndrome) High cholesterol HTN (hypertension) Chronic cough Allergic rhinitis Cough due to bronchospasm Surgical History Hx of bladder repair surgery S/P lobectomy of lung History of tubal ligation History of esophagogastroduodenoscopy (EGD) History of laparoscopic cholecystectomy History of colonoscopy (~10/27/23) Family History Father Myocardial infarction Mother Diabetic coma Sister No problems noted. 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 1. Little interest or pleasure in doing things: not at all 2. Feeling down, depressed, or hopeless: more than half the days 3. Trouble falling or staying asleep, or sleeping too much: nearly every day 4. Feeling tired or having little energy: nearly every day 5. Poor appetite or overeating: more than half the days 6. Feeling bad about yourself - or that you are a failure or have let yourself or your family down: not at all 7. Trouble concentrating on things, such as reading the newspaper or watching television: not at all 8. Moving or speaking so slowly that other people could have noticed. Or the opposite - being so fidgety or restless that you have been moving around a lot more than usual: not at all 9. Thoughts that you would be better off or of hurting yourself in some way: not at all Total score: 10 Depression Screening Interpretation: Positive Depression Screening Follow-up: New Medication prescribed Depression Screening Done: Yes 89013 - PHQ-9 Billing: Yes Source: Developed by Drs. Fabrice Barraza, Juliette Aburto, Ricky Mclain and colleagues, with an educational juan daniel from [email or web address]. Thrive Questionnaire Date Thrive assessed: 12/05/24 I am a: Patient What is your living situation today?: I have a steady place to live Within the past 12 months, did the food you bought not last and you didn't have the money to get more?: Sometimes True Within the past 12 months, did you worry whether your food would run out before you got money to buy more?: Never true Do you have trouble paying for medicines?: No Do you have trouble getting transportation to medical appointments?: No Do you have trouble paying your heating and electricity bill?: No Do you have trouble taking care of your child, family member or friend?: No Do you have trouble with day-to-day activities such as bathing, preparing meals, shopping, managing finances, etc.?: No Are you currently unemployed and looking for a job?: No Are you interested in more education?: No THRIVE Score: 1 AREN-7 AMB Questionnaire AREN-7 Date AREN - 7 assessed: 12/05/24 Feeling nervous, anxious, or on edge: 1 = Several days Not being able to stop or control worryin = Several days Worrying too much about different things: 1 = Several days Trouble relaxin = Several days Being so restless that it is hard to sit still: 1 = Several days Becoming easily annoyed or irritable: 1 = Several days Feeling afraid as if something awful might happen: 1 = Several days Total AREN-7 score (0-4 normal; 5-9 mild; 10-14 moderate; 15-21 severe): 7 Source: Developed by Issa Rayet B.W. Lamonte, Ricky Mclain and colleagues, with an educational juan daniel from [email or web address]. Physical exam (Primary Care) Vital Signs: Last Vital Signs Temp 97.4 F 12/05/24 10:08 Pulse 78 12/05/24 10:08 Resp 16 12/05/24 10:08 BP 116/66 12/05/24 10:08 Pulse Ox 98 12/05/24 10:08 Oxygen Delivery Method Room Air 12/05/24 10:08 BMI result Body Mass Index 27.6 Tobacco/Smoking Status: Tobacco use Status Tobacco use date assessed 10/03/24 12/05/24 10:01 Patient Tobacco Use Status Former Tobacco user 12/05/24 10:01 PHQ-9: PHQ-9 Score PHQ-9: Total score 10 12/05/24 10:38 Depression Screening Interpretation: Positive Depression Screening Follow-up: New Medication prescribed Thrive Assessment: Date of Thrive Assessment Date Thrive assessed 12/05/24 12/05/24 10:16 Coding Level of Care Code Est Pt Level 4 (89626) Diagnoses Moderate episode of recurrent major depressive disorder F33.1 Depression Type: major depressive disorder Major depression recurrence: recurrent Active/Remission status: currently active Major depression episode severity: moderate Anxiety F41.9 Type 2 diabetes mellitus without complication, without long-term current use of insulin E11.9 Diabetes mellitus type: type 2 Diabetes mellitus terminal press operator insulin use: without terminal press operator use Diabetes mellitus complication status: without complication Additional Codes PHQ-9 - 00005 - PHQ-9 Billing: Yes ([id number]) Assessment & Plan Assessment & Plan (1) Depression: Code(s): F32.A - Depression, unspecified Category: Medical Qualifiers: Depression Type: major depressive disorder Major depression recurrence: recurrent Active/Remission status: currently active Major depression episode severity: moderate Qualified Code(s): F33.1 - Major depressive disorder, recurrent, moderate (2) Anxiety: Code(s): F41.9 - Anxiety disorder, unspecified Category: Medical (3) Diabetes: Code(s): E11.9 - Type 2 diabetes mellitus without complications Category: Medical Qualifiers: Diabetes mellitus type: type 2 Diabetes mellitus terminal press operator insulin use: without terminal press operator use Diabetes mellitus complication status: without complication Qualified Code(s): E11.9 - Type 2 diabetes mellitus without complications Plan 79 year old for follow up DM is well controlled off medications though A1C is mildly increased Depression-intolerant cymbalta and zoloft. prozac sent. Follow up 1-2 months Orders: Orders Hemoglobin A1c Today E11.9 - Type 2 diabetes mellitus without complications Comprehensive Met. Panel Today E11.9 - Type 2 diabetes mellitus without complications Medications: New fluoxetine 10 mg PO DAILY 90 caps 3RF carvedilol 6.25 mg PO BID 180 tabs 3RF FreeStyle Lite Strips (blood sugar diagnostic) once daily 100 ea 3RF NS E11.9 - Type 2 diabetes mellitus without complications
[2024-12-05 10:05] VITALS: BMI 27.6
[2024-12-05 10:08] VITALS: BP 116/66; PULSE 78; RESP 16; TEMP 36.3; O2SAT 98
--- OUTSIDE RECORDS SUMMARY | 2024-12-05 10:32 | XMS_ITS | Clinical Summary ---
Author Organization [facility] Address [address] [place] [address] Phone Care Team Providers Care Flat Sorting Machine Clerk Name Role Phone Dannie Huang MD Primary Care Provider [phone] Allergies Active Allergy Reactions Criticality Noted Date [...] of lung cancer 04/22/2024 Assessment & Plan (11/01/2024 1:44 PM EDT): Ms. Candelario is a 79-year-old female who had a robotic left lower lobe superior segmentectomy on April 07, 2023 for a stage 1A (pT1a, pN0) invasive lepidic adenocarcinoma. The patient's most recent surveillance chest CT scan done in October 2024 shows no new or worsening pulmonary nodule, or thoracic adenopathy, to suggest recurrence or new disease. She does have several stable subcentimeter pulmonary nodules measuring up to 6 mm in size. We will continue with routine chest CT surveillance the next of which will be in 6 months, April 2025. The patient will follow-up visit after. Patient educated call the office should she have any questions or concerns prior to that next appointment. Assessment & Plan (04/22/2024 10:48 AM EST): [...] and how their size shape and change release manager time affect her level of suspicion [...] segmentectomy or lobectomy. All questions were answered. Encounters Date Type Department Care Team Description 10/31/2024 11:15 AM EDT Office Visit Thoracic Surgery - [address] [place] [id number] Cata Lebron PA History of lung cancer (Primary Dx); Multiple pulmonary nodules 10/21/2024 10:31 AM EDT - 10/21/2024 11:59 PM EDT Hospital Encounter [facility] CT Scan [address] [place] [address] History of lung cancer; Multiple pulmonary nodules Discharge Disposition: Home or Self Care from Last 3 Months Surgical History Surgery Date Site/Laterality Comments COLONOSCOPY N/A PROCEDURE: HISTORICAL COLONOSCOPY ESOPHAGOGASTRODUODENOSCOPY N/A PROCEDURE: [place] ESOPHAGOGASTRODUODENOSCOPY TRANSORAL DIAGNOSTIC CHOLECYSTECTOMY N/A PROCEDURE: HISTORICAL CHOLECYSTECTOMY TUBAL LIGATION PROCEDURE: HISTORICAL TUBAL LIGATION OTHER SURGICAL HISTORY 04/07/2023 Left PROCEDURE: [place] THORACOSCOPY W/THERA WEDGE RESEXN INITIAL UNILAT; COMMENT: [...] no dule DM2 (diabetes mellitus, type 2) ([facility] V24, [facility] V28) DX:DM2 (diabetes mellitus, t ype 2) ([facility]) Anemia DX:Anemia Mild intermittent asthma, [...] Sign Reading Time Taken Comments Blood Pressure 149/77 10/31/2024 11:30 AM EDT Pulse 75 10/31/2024 11:30 AM EDT Temperature 36.7 C (98.1 F) 10/31/2024 11:30 AM EDT Respiratory Rate 16 04/22/2024 10:54 AM EST Oxygen Saturation 96% 10/31/2024 11:30 AM EDT Inhaled Oxygen Concentration - - Weight 72.2 kg (159 lb 3.2 oz) 10/31/2024 11:30 AM EDT Height 162.6 cm (5' 4 ) 10/31/2024 11:30 AM EDT Body Mass Index 27.33 10/31/2024 11:30 AM EDT Plan of Treatment Health Maintenance Due Date Last Done Comments [...] 2023-2 5 season) 2024 03/16/2024, 07/05/2021, 09/09/2020 Diabetes: Annual Urine Albumin-Creatinine Ratio (uACR) 10/21/2024 Diabetes: Blood Sugar Contro l Test (HGBA1C) 10/21/2024 Influenza Vaccine (Season Ended) 2025 DTaP,Tdap,and Td [...] on patient's age to complete this topic Procedures Procedure Name Priority Date/Time Associated Diagnosis Comments CT CHEST WO CONTRAST Routine 10/21/2024 10:41 AM EDT History of lung cancer Multiple pulmonary nodules from Last 3 Months Results * CT Chest wo Contrast (10/21/2024 10:41 AM EDT) Anatomical Region Laterality Modality Body Computed Tomogra phy 10/22/2024 5:32 AM EDT Impressions 10/22/2024 5:37 AM EDT Postsurgical appearance in the left lower lobe without significant interval change from prior. Previously seen pulmonary nodules are similar to prior. -------- FINAL REPORT -------- Dictated By: Veronica Luciano Dictated Date: 10/22/2024 05:32 ET Assigned Physician: Veronica Luciano Reviewed and Electronically Signed By: Veronica Luciano Signed Date: 10/22/2024 05:37 ET Workstation ID: [id number] Transcribed By: Self Edit Transcribed Date: 10/22/2024 05:32 ET Narrative 10/22/2024 5:37 AM EDT INDICATION: History of lung cancer s/p superior segmentectomy left lower lobe. Surveillance. TECHNIQUE: Multiple contiguous axial CT images were obtained of the chest without intravenous contrast. Multiplanar reformats were created and interpreted. The CT scanner utilized low- dose iterative reconstruction technique with automatic exposure control based on patient size. DLP: 547.66 mGy-cm COMPARISON: April 2024, March 2023 FINDINGS: Lack of intravenous contrast limits evaluation of the hiram, vascular structures and abdominal viscera. LUNGS/PLEURA: Central airways are patent. Postsurgical appearance in the left lower lobe. Lingular, right middle lobe and bibasilar atelectasis/scarring. Mild bronchiectasis. Mild biapical pleural-parenchymal scarring. Scattered sub-5 mm pulmonary nodules are similar to prior. 6 mm groundglass nodule right lower lobe (series 4, image 136), similar to prior. MEDIASTINUM: No enlarged mediastinal lymphadenopathy. Aortic and mitral annular calcifications. Evaluation for hilar lymphadenopathy is difficult to assess due to lack of IV contrast. MISCELLANEOUS: No axillary lymphadenopathy. Possible small hiatal hernia. UPPER ABDOMEN: Status post cholecystectomy. BONES AND SOFT TISSUES: Scattered degenerative changes. Procedure Note Veronica Luciano MD - 10/22/2024 INDICATION: History of lung cancer s/p superior segmentectomy left lowerlobe. Surveillance. TECHNIQUE: Multiple contiguous axial CT images were obtained of the chestwithout intravenous contrast. Multiplanar reformats were created andinterpreted. The CT scanner utilized low-dose iterative reconstructiontechnique with automatic exposure control based on patient size. DLP: 547.66 mGy-cm COMPARISON: April 2024, March 2023 FINDINGS: Lack of intravenous contrast limits evaluation of the hiram,vascular structures and abdominal viscera. LUNGS/PLEURA: Central airways are patent. Postsurgical appearance in theleft lower lobe. Lingular, right middle lobe and bibasilaratelectasis/scarring. Mild bronchiectasis. Mild biapicalpleural-parenchymal scarring. Scattered sub-5 mm pulmonary nodules are similar to prior. 6 mmgroundglass nodule right lower lobe (series 4, image 136), similar toprior. MEDIASTINUM: No enlarged mediastinal lymphadenopathy. Aortic and mitralannular calcifications. Evaluation for hilar lymphadenopathy is difficultto assess due to lack of IV contrast. MISCELLANEOUS: No axillary lymphadenopathy. Possible small hiatalhernia. UPPER ABDOMEN: Status post cholecystectomy. BONES AND SOFT TISSUES: Scattered degenerative changes. IMPRESSION: Postsurgical appearance in the left lower lobe without significantinterval change from prior. Previously seen pulmonary nodules are similarto prior. -------- FINAL REPORT -------- Dictated By: Veronica Luciano Dictated Date: 10/22/2024 05:32 ET Assigned Physician: Veronica Luciano Reviewed and Electronically Signed By: Veronica Luciano Signed Date: 10/22/2024 05:37 ET Workstation ID: [id number] Transcribed By: Self Edit Transcribed Date: 10/22/2024 05:32 ET us Cata CHANG IMG CT PROCEDURES Final Resul t from Last 3 Months Insurance MEDICARE [facility] [address] [place] [address] Care Teams Flat Sorting Machine Clerk Relationship Specialty Start Date End Date Dnanie Huang MD [address] [place] [address] [address] ROSA Garner PCP - General 03/22/18
== END 2024-12-05 10:37 | disposition home or self-care (01) ==
LOC: HO.HMCHD 09:56
PROVIDERS: PCP Internal Medicine; Visit Provider Internal Medicine
DX: F33.1 Major depressive disorder, recurrent, moderate (principal); F41.9 Anxiety disorder, unspecified; E11.9 Type 2 diabetes mellitus without complications

== ENCOUNTER → 2024-12-05 09:56 | Outpatient (BNVA) | payer MEDICARE, OTHER, SELFPAY | PROVIDERS: PCP Internal Medicine; Visit Provider Internal Medicine | DX: F33.1 Major depressive disorder, recurrent, moderate (principal); F41.9 Anxiety disorder, unspecified; E11.9 Type 2 diabetes mellitus without complications; Z79.899 Other long term (current) drug therapy; Z13.31 Encounter for screening for depression; Z13.30 Encounter for screening examination for mental health and behavioral disorders, unspecified | CPT/HCPCS: 96127; 99212 ==

== ENCOUNTER 2025-01-17 10:28 | Outpatient (REF) | payer MEDICARE, OTHER, SELFPAY ==
--- OUTSIDE RECORDS SUMMARY | 2023-08-29 11:00 | XMS_ITS ---
Author Organization [facility] Address [address] [place] [address] Care Team Providers Care Ice Cream Freezer Assistant Name Role Phone Sal (RETIRED) Dannie SHIELDS Primary Care Provide Fabrice Vergara [phone] REASON FOR VISIT abdominal pain Encounters Encounter Location Date Provider Diagnosis [facility] [address] [place] [address] 08/29/2023 Fabrice Blanchard Plan Of Treatment No Information Progress Notes * TREY BROWN IDOB:1944 (79 yo F)Acc No.[id number]:08/29/2023 Progress Notes Patient: TREY KOWALSKI I Provider: Tory Blanchard MD :1945 A ge:78 Y S ex:Female Date:08/29/2023 Address:[address] [place] [address] , [id number] Pcp:Dannie Huang (RETIRED )MD Subjective: * Chief Complaints: * 1 . Abdominal pain. * Medical History: Objective: * Vitals: Assessment: Plan: * Treatment: * * The named appointment provid er may or may not be the originator of this progress note, and it is not deemed complete until electronically signed by the appointment provider. Sign off status: Pending * Provider: Tory Blanchard MD Date: 0 08/29/2023 Generated for Printi ng/Faxing/eTransmitting on: 0 01/17/2025 10:34 AM EDT
--- OUTSIDE RECORDS SUMMARY | 2023-12-01 06:30 | XMS_ITS ---
Author Organization Fabrice Crain III, MD Address [address] [place] [address] Care Team Providers Care Back Padder Name Role Phone Dannie Huang MD Primary Care Provider Fabrice Butcher Unavailable [phone] Allergies Allergen (clinical drug ingredient) Drug/Non Drug [...] Benzonatate 100 MG TAKE 1 CAPSULE BY [facility] EVERY 8 HOURS NEEDED FOR COUGH Oral Active Albuterol Sulfate HFA 108 (90 Base) MCG/ACT 1 puff as needed Inhalation every 4 hrs Active Zoryve 0.3 % 1 application Support Team Assoc ally Once a day Active LORazepam 1 [...] Problem Status W/U Status Risk Notes Problem [id number] Other obesity (E66.8) Active confirmed Her body [...] Date Provider Diagnosis Fabrice Crain III, MD [address] [place] [address] [place] [address] 12/01/2023 Fabrice Crain Malignant neoplasm o f [...] Benzonatate 100 MG TAKE 1 CAPSULE BY [facility] EVERY 8 HOURS NEEDED FOR COUGH Oral Albuterol Sulfate HFA 108 (9 0 Base) MCG/ACT 1 puff as needed Inhalation every 4 hrs Zoryve 0.3 % 1 application Support Team Assoc ally Once a day LORazepam 1 MG [...] OV Provider Name:Fabrice Crain, 04/11/2025 10:00:00 AM, [address] [place] [address] STEFANY BROWN, [place], [address], Progress Notes * JUVENTINO CANDELARIO:[birth year] (78 yo F)Acc No.[id number]:12/01/2023 Progress Notes Patient: TREY KOWALSKI Provider: Tory Crain MD :1945 A ge:78 Y S ex:Female Date:12/01/2023 Address:[address] [place], [place] [address], [id number] Pcp:Dannie Huang MD Subjective: * Chief Complaints: [...] mg/dL) 52 (Ref Range: mg/dL) * Lab:Comprehensive [place]. Pane l Fast * Order Date 11/13/2023 [...] 12/01/2023 Generated for Bryan lee/Faxing/eTransmitting on: 0 01/17/2025 10:34 AM EDT History and Physical Notes * HPI (History of Present Illness) Category Sub-Category Detail Notes COVID-19 Screening Questions Have you had any new onset fever, chills, cough, congestion, sore throat, shortness of breath, muscle aches?: No Have you been exposed to the virus withi n the last 10 days?: No Have you travelled internationally in [facility] last 10 days?: No Have you [...]
--- OUTSIDE RECORDS SUMMARY | 2024-09-26 11:45 | XMS_ITS ---
Author Organization [facility] Address [address] [facility] [place] [address] Care Team Providers Care Band Reamer Machine Operator Name Role Phone OmarJessica castroah Primary Care Provider Malik Albert Unavailable [phone] Radha Weir Unavailable [phone] Allergies Allergen (clinical drug ingredient) Drug/Non Drug [...] Active Encounters Encounter Location Date Provider Diagnosis [facility] [address] [address] 09/26/2024 Radha Weir Plan Of Treatment Next Appt Details Provider Name:Malik Clements , 05/09/2025 11:45:00 AM, [address] [place] [address], [phone], Progress Notes * Ahsan CANDELARIOB:[birth year] (79 yo F)Acc No.[id number]:09/26/2024 Progress Note Patient: Julienne KOWALSKI Provider: Mikel Weir DPM :1945 A ge:79 Y S ex:Female Date:09/26/2024 Address:[address] [place], [place] [id number] Pcp:Karin Nelson Subjective: * Chief Complaints: * [...] 09/26/2024 Generated for Bryan lee/Emily/Reneaitting on: 0 01/17/2025 10:34 AM EDT
--- OUTSIDE RECORDS SUMMARY | 2025-01-17 10:35 | XMS_ITS | Clinical Summary ---
Author Organization [facility] Address [address] [place] [address] Phone Care Team Providers Care Jewelry Mechanic Name Role Phone Dannie Huang MD Primary Care Provider [phone] Allergies Active Allergy Reactions Criticality Noted Date [...] and how their size shape and change number operator time affect her level of suspicion [...] AM EDT Office Visit Thoracic Surgery - [address] [place] [phone] Cata Lebron PA History of lung cancer (Primary Dx); Multiple pulmonary nodules 10/21/2024 10:31 AM EDT - 10/21/2024 11:59 PM EDT Hospital Encounter [facility] CT Scan [address] [place] [address] History of lung cancer; Multiple pulmonary nodules Discharge Disposition: Home or Self Care from Last 3 Months Surgical History Surgery Date Site/Laterality Comments COLONOSCOPY N/A PROCEDURE: HISTORICAL COLONOSCOPY ESOPHAGOGASTRODUODENOSCOPY N/A PROCEDURE: [place] ESOPHAGOGASTRODUODENOSCOPY TRANSORAL DIAGNOSTIC CHOLECYSTECTOMY N/A PROCEDURE: HISTORICAL CHOLECYSTECTOMY TUBAL LIGATION PROCEDURE: HISTORICAL TUBAL LIGATION OTHER SURGICAL HISTORY 04/07/2023 Left PROCEDURE: [place] THORACOSCOPY W/THERA WEDGE RESEXN INITIAL UNILAT; COMMENT: [...] no dule DM2 (diabetes mellitus, type 2) ([facility] V24, [facility] V28) DX:DM2 (diabetes mellitus, t ype 2) ([facility]) Anemia DX:Anemia Mild intermittent asthma, [...] series) 2021 Cholesterol Screening (Lipid Panel) 07/04/2023 Falls Risk Assessment 07/04/2023 Hepatitis C Screening 07/04/2023 Medicare Annual Wellness Visit 07/04/2023 Osteoporosis Screening (Bone Density Screening) 07/04/2023 Social Influencers of Health Screening 07/04/2023 Hypertension/CHF/CAD Annual BMP Blood Test 12/29/2023 Depression Screening 06/05/2024 COVID-19 Vaccine (4 - 2023-2 5 season) 2024 03/16/2024, 07/05/2021, 09/09/2020 Influenza Vaccine (#1) 2025 DTaP,Tdap,and Td Vaccines (2 - Td [...] Signed Date: 10/22/2024 05:37 ET Workstation ID: [id number] Transcribed By: Self Edit Transcribed Date: 10/22/2024 [...] Signed Date: 10/22/2024 05:37 ET Workstation ID: [id number] Transcribed By: Self Edit Transcribed Date: 10/22/2024 05:32 ET Cata CHANG IMG CT PROCEDURES Final Resul t from Last 3 Months Insurance MEDICARE [facility] [address] [place] [address] Care Teams Jewelry Mechanic Relationship Specialty Start Date End Date Dannie Huang MD [address] [place] [address] [address] [place], [place] PCP - General 03/22/18
[2025-01-17 11:31] LABS: Hemoglobin A1C 156.2226 umol/L; Total Hemoglobin (HGBA1C) 3114.1401 umol/L
[2025-01-17 11:49] LABS: Alanine Aminotransferase 15 U/L (0-31); Albumin Level 4.1 g/dL (3.5-5.0); Alkaline Phosphatase 69 U/L (39-117); Anion Gap 12 (12-20); Aspartate Amino Transferase 21 U/L (5-31); Blood Urea Nitrogen 18 mg/dL (9-16); Calcium 9.0 mg/dL (8.4-10.2); Carbon Dioxide 24 mmol/L (22-29); Chloride 106 mmol/L (96-108); Estimated Glomerular Filt Rate > 60; Potassium 3.9 mmol/L (3.3-5.1); Sodium 138 mmol/L (135-145); Total Protein 7.3 g/dL (6.5-8.0)
== END 2025-01-17 10:29 | disposition home or self-care (01) ==
LOC: HO.LAB 10:28
PROVIDERS: Absent Provider Internal Medicine; PCP Internal Medicine
DX: E11.9 Type 2 diabetes mellitus without complications (principal)
CPT/HCPCS: 36415; 80053; 83036

== ENCOUNTER 2025-01-23 15:29 | Observation (INO) | payer MEDICARE, OTHER, SELFPAY ==
--- OUTSIDE RECORDS SUMMARY | 2023-08-29 11:00 | XMS_ITS ---
Author Organization [facility] Address [address] [place] [address] Care Team Providers Care Hydraulic Jack Adjuster Name Role Phone Sal (RETIRED) Dannie SHIELDS Primary Care Provide Fabrice Vergara [phone] REASON FOR VISIT abdominal pain Encounters Encounter Location Date Provider Diagnosis [facility] [address] [place] [address] 08/29/2023 Fabrice Blanchard Plan Of Treatment No Information Progress Notes * TREY BROWN IDOB:1944 (79 yo F)Acc No.[id number]:08/29/2023 Progress Notes Patient: TREY KOWALSKI I Provider: Tory Blanchard MD :1945 A ge:78 Y S ex:Female Date:08/29/2023 Address:[address] [place] [address] , [id number] Pcp:Dannie Huang (RETIRED )MD Subjective: * Chief [...] 08/29/2023 Generated for Printi ng/Faxing/eTransmitting on: 0 01/23/2025 04:04 PM EDT
--- OUTSIDE RECORDS SUMMARY | 2023-12-01 06:30 | XMS_ITS ---
Author Organization Fabrice Crain III, MD Address [address] [place] [address] Care Team Providers Care Pearl Diver Name Role Phone Dannie Huang MD Primary Care Provider Fabrice Butcher Unavailable [phone] Allergies Allergen (clinical drug ingredient) Drug/Non Drug [...] Benzonatate 100 MG TAKE 1 CAPSULE BY [facility] EVERY 8 HOURS NEEDED FOR COUGH Oral Active Albuterol Sulfate HFA 108 (90 Base) MCG/ACT 1 puff as needed Inhalation every 4 hrs Active Zoryve 0.3 % 1 application Quality Systems Manager ally Once a day Active LORazepam 1 [...] Problem Status W/U Status Risk Notes Problem [id number] Other obesity (E66.8) Active confirmed Her body [...] Date Provider Diagnosis Fabrice Crain III, MD [address] [place] [address] [place] [address] 12/01/2023 Fabrice Crain Malignant neoplasm o f [...] Benzonatate 100 MG TAKE 1 CAPSULE BY [facility] EVERY 8 HOURS NEEDED FOR COUGH Oral Albuterol Sulfate HFA 108 (9 0 Base) MCG/ACT 1 puff as needed Inhalation every 4 hrs Zoryve 0.3 % 1 application Quality Systems Manager ally Once a day LORazepam 1 MG [...] Up: 4 Months, Reason: OV Provider Name:Fabrice Crain, 04/11/2025 10:00:00 AM, [address] [place] [address] STEFANY BROWN, [place], [address], Progress Notes * JUVENTINO CANDELARIO:[birth year] (78 yo F)Acc No.[id number]:12/01/2023 Progress Notes Patient: TREY KOWALSKI Provider: Tory Crain MD :1945 A ge:78 Y S ex:Female Date:12/01/2023 Address:[address] [place] [address] [place], [place] [address]Y [place], [id number] Pcp:Dannie Huang MD Subjective: * Chief Complaints: [...] mg/dL) 52 (Ref Range: mg/dL) * Lab:Comprehensive [place]. Pane l Fast * Order Date 11/13/2023 [...] MD Date: 0 12/01/2023 Generated for Bryan lee/Faxing/eTransmitting on: 0 01/23/2025 04:04 PM EDT History and Physical Notes * HPI (History of Present Illness) Category Sub-Category Detail Notes COVID-19 Screening Questions Have you had any new onset fever, chills, cough, congestion, sore throat, shortness of breath, muscle aches?: No Have you been exposed to the virus withi n the last 10 days?: No Have you travelled internationally in [facility] last 10 days?: No Have you been [...]
--- OUTSIDE RECORDS SUMMARY | 2025-01-17 23:59 | XMS_ITS | Continuity of Care Document ---
Author Organization [facility] Address [address] [place] [address] Care Team Providers Care Metal Furnace Operator Name Role Phone Gina SHIELDS, Karin Angel Primary Care Physician Encounter [facility] Date(s): 12/18/24 - 01/17/25 [facility] [address] [place] [address]- Attending Physician: Mylene Moreno Admitting Physician: AdmMylene delatorre Referring Physician: Admtr, [id number] Encounter Type: Triage Allergies, Adverse Reactions, Alerts Substance Criticality Severity Reaction Reaction Severity Status niacin High criticality Moderate Act deanne Cortizone High criticality Moderate Act deanne Lactose High criticality Moderate Act deanne Medications Albuterol (Eqv-ProAir HFA) 90 mcg/inh inhalation aerosol TAKE 2 PUFFS BY MOUTH EVERY 4-6 NEEDED FOR SHORTNESS OF BREATH Start Date: 11/08/22 Status: Ordered Repeat number: 1 azelastine 137 mcg/inh (0.1%) nasal spray See Instructions, SPRAY 2 SPRAYS INTO EACH NOSTRIL DAILY NEEDED FOR ALLERGIES, # 90 Unknown, 0 Refills, Maintenance, 12/26/24 8:30:00 AM EDT, [id number], 90, SPRAY 2 SPRAYS INTO EACH NOSTRIL DAILY NEEDED FOR ALLERGIES, 162.56, cm, 12/18/24 8:38:00 EDT, Height Start Date: 12/26/24 Status: Ordered Quantity: 90.0 Unit: Unknown Repeat number: 1 benzonatate 100 mg oral capsule 1 capsule = 100 mg, By Mouth, 3 times a day, PRN as needed for cough, # 90 capsule, 1 Refills, Maintenance, 12/30/24 5:21:00 PM EDT, Capsule, [id number], Partial fill upon patient request if the prescription is for a schedule II opioid drug., 162.56, cm, 12/18/24 8:38:00 EDT, Height Start Date: 12/30/24 Status: Ordered Quantity: 90.0 Unit: capsule Repeat number: 2 carvedilol 6.25 mg oral tablet 6.25 mg, 1, tablet, By Mouth, 2 times a day, # 60 tablet, Refills 0, Maintenance, 09/09/22 8:31:00 AMEDT, Partial fill upon patient request if the prescription is for a schedule II opioid drug. Start Date: 09/09/22 Status: Ordered Quantity: 60.0 Unit: tablet Repeat number: 1 Claritin 5 mg oral tablet, chewable 1 tablet = 5 mg, Daily, 0 Refills, Maintenance, 05/19/23 9:49:00 AM EST, Partial fill upon patient request if the prescription is for a schedule II opioid drug. Start Date: 05/19/23 Status: Ordered Repeat number: 1 Dextromethorphan See Instructions, By Mouth, 0 Refills, Maintenance, 05/19/23 9:49:00 AM EST, Partial fill upon patient request if the prescription is for a schedule II opioid drug. Start Date: 05/19/23 Status: Ordered Repeat number: 1 fluticasone CFC free 110 mcg/inh inhalation aerosol = 220 mcg, By Mouth, 2 times a day, j45.40, # 3 each, 3 Refills, Maintenance, 09/09/24 3:10:00 PM EDT, Aerosol, [id number], Partial fill upon patient request if the prescription is for a schedule II opioid drug., 162.56, cm, 08/20/24 14:18:00 EDT, Height Start Date: 09/09/24 Status: Ordered Quantity: 3.0 Unit: each Repeat number: 4 hydrALAZINE 0 Refills, Maintenance, 09/09/22 8:29:00 AM EDT, Partial fill upon patient request if the prescription is for a schedule II opioid drug. Start Date: 09/09/22 Status: Ordered Repeat number: 1 ipratropium nasal 42 mcg/inh spray See Instructions, SPRAY 2 SPRAYS INTO BOTH NOSTRILS 3 TIMES A DAY, # 15 Unknown, 1 Refills, Maintenance, 11/30/22 11:08:00 AM EDT, [id number], 30, SPRAY 2 SPRAYS INTO BOTH NOSTRILS 3 TIMES A DAY,162.56, cm, 11/08/22 13:01:00 EDT, Height Start Date: 11/30/22 Status: Ordered Quantity: 15.0 Unit: Unknown Repeat number: 1 LORazepam 1 mg oral tablet TAKE 1/2 TABLET BY MOUTH TWICE A DAY NEEDED AND 1 TABLET AT BEDTIME Start Date: 11/08/22 Status: Ordered Repeat number: 1 Omeprazole By Mouth, Daily, 0 Refills, Maintenance, 09/09/22 8:28:00 AM EDT, Partial fill upon patient request if the prescription is for a schedule II opioid drug. Start Date: 09/09/22 Status: Ordered Repeat number: 1 ondansetron 4 mg oral tablet 1 tablet = 4 mg, By Mouth, Every 8 hours, # 12 tablet, 0 Refills, Maintenance, 11/08/22 1:01:00 PM EDT, Tablet, Partial fill upon patient request if the prescription is for a schedule II opioid drug. Start Date: 11/08/22 Status: Ordered Quantity: 12.0 Unit: tablet Repeat number: 1 pravastatin 80 mg oral tablet 1 tablet = 80 mg, By Mouth, Daily, # 30 tablet, 0 Refills, Maintenance, 11/08/22 1:01:00 PM EDT, Tablet, Partial fill upon patient request if the prescription is for a schedule II opioid drug. Start Date: 11/08/22 Status: Ordered Quantity: 30.0 Unit: tablet Repeat number: 1 ProAir HFA 90 mcg/inh inhalation aerosol 2 puffs, Inhalation, 6 times a day, PRN as needed for wheezing, # 8.5 Gm, 11 Refills, Maintenance, 08/20/24 3:03:00 PM EDT, [id number], Partial fill upon patient request if the prescription isfor a schedule II opioid drug., 2 puffs Inhalation 6 times a day,x90 days,PRN:as needed for wheezing, 162.56, cm, 08/20/24 14:18:00 EDT, Height Start Date: 08/20/24 Stop Date: 3/2/28 Status: Ordered Quantity: 8.5 Unit: g Repeat number: 12 Social History Social History Type Response Smoking Status Former smoker, quit more than 30 days ago entered on: 10/02/23 Sex Sex Representation Female (finding) Laboratory * Event Display: Non BH Lab Results Authored Date: Radiology * Event Display: CT Scan Chest, Non- BH Authored Date: * Event Display: CT Scan Chest, Non- BH Authored Date: * Event Display: [place] Nuclear Medicine, Non-BH Authored Date: * Event Display: CT Scan Chest, Non- BH Authored Date: * Event Display: CT Scan Head, Non- BH Authored Date: * Event Display: X-Ray Sinus, Non- BH Authored Date: * Event Display: X-Ray Chest, Non- BH Authored Date: * Event Display: X-Ray Sinus, Non- BH Authored Date: Patient Care team information Care Team Personnel Name: Gina SHIELDS, Karin Angel Position: Reference Physician Member Role: PCP Address: [address] [place] [address] Telecom: Care Team Related Persons Name: AMBREEN BROWN Name: RUBENS SILVA Insurance Providers Guarantor name: TREY BROWN Health Plan Information #: 1 Payer: MEDICARE B Payer Identifier: NA Member Number: [id number] Group Number: Subscriber Identifier: [id number] Relationship to Subscriber: self Coverage Type: NA Coverage Verification Date: NA Telecom: NA Address: Health Plan Information #: 2 Payer: [facility] Payer Identifier: NA Member Number: [id number] Group Number: [id number] Subscriber Identifier: [id number] Relationship to Subscriber: self Coverage Type: Medicare Other Coverage Verification Date: NA Telecom: NA Address:
[2025-01-23] VITALS (8 sets, daily range): BP systolic 144–205; BP diastolic 63–90; PULSE 72–90; RESP 16–20; TEMP 36.6–36.7; O2SAT 94–97; BMI 26.8
--- NOTE | ~2025-01-23 | XR_ITS ---
CLINICAL HISTORY: high BP Chest Radiograph Comparison: CR/MA/SR - XR CHEST 2V - 06/25/24 14:[address]/MA/SR - CT CHEST HIGH RESOLUTION WITHOUT IV CONTRAST - 03/16/23 12:18 EDT Findings: No cardiomegaly. Normal mediastinal contours. No pneumothorax. No opacity. No pleural effusion. Normal upper abdomen. No acute fracture. Impression: No acute findings. This document has been electronically signed by: Marii Broderick MD on 01/23/2025 17:47:02
--- NOTE | 2025-01-23 15:45 | ECG_ITS ---
Test Reason : HYPERTENTION Blood Pressure : */* mmHG Vent. Rate : 82 BPM Atrial Rate : 82 BPM P-R Int : 166 ms QRS Dur : 92 ms QT Int : 406 ms P-R-T Axes : 52 15 48 degrees QTcB Int : 474 ms Normal sinus rhythm Normal ECG When compared with ECG of 12-Nov-2016 02:37, No significant change was found Referred By: Generic ED Physician Electronically Signed By: PERI ROBLEDO MD
--- OUTSIDE RECORDS SUMMARY | 2025-01-23 16:05 | XMS_ITS | Clinical Summary ---
Author Organization [facility] Address [address] [place] [address] Phone Care Team Providers Care Spd Manager Name Role Phone Dannie Huang MD Primary Care Provider [phone] Allergies Active Allergy Reactions Criticality Noted Date [...] general and how their size shape and warp changer time affect her level of suspicion [...] AM EDT Office Visit Thoracic Surgery - [address] [place] [address] Cata Lebron PA History of lung cancer (Primary Dx); Multiple pulmonary nodules from Last 3 Months Surgical History Surgery Date Site/Laterality Comments COLONOSCOPY N/A PROCEDURE: HISTORICAL COLONOSCOPY ESOPHAGOGASTRODUODENOSCOPY N/A PROCEDURE: [place] ESOPHAGOGASTRODUODENOSCOPY TRANSORAL DIAGNOSTIC CHOLECYSTECTOMY N/A PROCEDURE: HISTORICAL CHOLECYSTECTOMY TUBAL LIGATION PROCEDURE: HISTORICAL TUBAL LIGATION OTHER SURGICAL HISTORY 04/07/2023 Left PROCEDURE: [place] THORACOSCOPY W/THERA WEDGE RESEXN INITIAL UNILAT; COMMENT: [...] no dule DM2 (diabetes mellitus, type 2) ([facility] V24, [facility] V28) DX:DM2 (diabetes mellitus, t ype 2) ([facility]) Anemia DX:Anemia Mild intermittent asthma, [...] complete this topic Insurance MEDICARE [facility] [address] [place] [address] Care Teams Spd Manager Relationship Specialty Start Date End Date Dannie Huang MD [address] [place] [address] [address] [place] PCP - General 03/22/18
--- NOTE | 2025-01-23 16:32 | ED_ITS ---
HPI - General Adult General Chief complaint: General Medical Stated complaint: high bp and blood sugar Time Seen by Provider: 01/23/25 16:31 Source: patient Mode of arrival: ambulatory Limitations: no limitations History of Present Illness ED Provider: HPI narrative: Patient states she is here because his her PCP told her to come in because she was having chest pain, elevated blood pressure, she did see her PCP to be blood pressure in the office, she states she takes carvedilol hydralazine,, states that she gets elevated blood pressure before tests, otherwise her blood pressure is pretty well controlled, states her sugars have been high in the morning and reports numbers 1 30s going up to 170s during the day not on diabetic medications. Patient received metoprolol and nitro to lower heart rate and blood pressure before the cardiac scan. Related Data Home Medications ?Medication ?Instructions ?Recorded ?Confirmed blood sugar diagnostic #10 ea 02/29/20 01/22/23 pravastatin 80 mg tablet 80 mg PO DAILY 02/29/2011/03 blood-glucose meter (FreeStyle #1 ea 05/10/21 01/22/23 [place] Lite kit) lancets 28 gauge (FreeStyle #100 ea 05/10/21 01/22/23 Lancets) omeprazole 20 mg capsule,delayed 20 mg PO BID 11/11/21 11/13/24 release loratadine 10 mg tablet (Claritin) 10 mg PO DAILY 10/0411/13/24 benzonatate 100 mg capsule 100 mg PO Q8H PRN cough 06/2911/13/24 fluticasone propionate 110 2 puff inhalation BID 12/05 mcg/actuation HFA aerosol inhaler Previous Rx's ?Medication ?Instructions ?Recorded albuterol sulfate 90 mcg/actuation 2 puff PO Q4-6H PRN for dyspnea #1 12/15/22 aerosol inhaler ea azelastine 137 mcg (0.1 %) nasal 2 spray intranasal BI D #30 mL 09/03/24 spray lorazepam 1 mg tablet 3 mg (3 x 1 mg) PO DAILY Anx iety 10/03/24 #90 tabs hydralazine 25 mg tablet 25 mg PO BID 90 days #180 ta bs 11/13/24 FreeStyle Lite Strips (blood sugar #100 ea 12/05/24 diagnostic) carvedilol 6.25 mg tablet 6.25 mg PO BID #180 tabs 08/27 fluoxetine 10 mg capsule 10 mg PO DAILY #90 caps 08/27 Allergies Allergy/AdvReac Type Severity Reaction Status Date / Time niacin (Niacin) Allergy Mild RASH Verified 01/23/25 15:38 lactose (Lactose) AdvReac Mild DIARRHEA Verified 01/23/25 15:38 atorvastatin (Lipitor) AdvReac Unknown Unknown Verified 01/23/25 15:38 celecoxib (Celebrex) AdvReac Unknown Unknown Verified 01/23/25 15:38 simvastatin AdvReac Unknown Unknown Verified 01/23/25 15:38 Review of Systems 2 Constitutional: Constitutional: Reports as per HPI [facility] Past Medical History Medical History Peptic ulcer Lung cancer Psoriasis Type 2 diabetes mellitus GERD (gastroesophageal reflux disease) Osteopenia Pulmonary nodule Depression Fibromyalgia IBS (irritable bowel syndrome) High cholesterol HTN (hypertension) Chronic cough Allergic rhinitis Cough due to bronchospasm Surgical History Hx of bladder repair surgery S/P lobectomy of lung History of tubal ligation History of esophagogastroduodenoscopy (EGD) History of laparoscopic cholecystectomy History of colonoscopy (~10/27/23) Family History Family History Father Myocardial infarction Mother Diabetic coma Sister No problems noted. 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 Cognitive needs: No Hearing needs: No Vision needs: Yes (Rx glasses) Physical Exam ED Vital Signs: Vital Signs - 24 hr 01/23/25 15:35 01/23/25 16:08 01/23/25 17:20 Temperature 98.0 F 97.9 F Pulse Rate 90 77 82 Respiratory Rate 18 18 18 Blood Pressure 205/90 H 144/83 H 195/89 H Pulse Oximetry 97 94 95 Oxygen Delivery Method Room Air Room Air Room Air 01/23/25 19:22 01/23/25 19:23 01/23/25 19:35 Temperature 97.8 F Pulse Rate 73 72 74 Respiratory Rate 16 20 20 Blood Pressure 169/63 H 169/63 H 178/84 H Pulse Oximetry 94 96 96 Oxygen Delivery Method Room Air Room Air Room Air BMI result Body Mass Index 26.8 Const Other: * Gen: ?Overall well-appearing patient * HEENT: PERRLA, EOMI, MMM, * Neck: Supple, no LAD * CV: RRR, no obvious murmurs appreciated * Resp: ?No wheezing rales rhonchi no stridor moving air well * Abd: ?Bowel sounds are present, no tenderness no rebound no rigidity * MSK: FROM, strength 5/5 all extremities * Skin: Warm, dry, intact, * Neuro: ?Alert and oriented x3, moving upper and lower extremities symmetrically, no obvious facial asymmetry noted Medications Administered Discontinued Medications Generic Name Dose Route Start Last Admin Trade Name Freq PRN Reason Stop Dose Admin Aspirin 324 mg 01/23/25 17:31 01/23/25 17:51 Aspirin 81 Mg Tab.Chew PO 01/23/25 17:32 324 mg ONCE ONE Administration Diazepam 2.5 mg 01/23/25 17:31 01/23/25 17:51 Diazepam 10 Mg/2 Ml Cartridge IVPUSH 01/23/25 17:32 2.5 mg STAT STA Administration Medical Decision Making Medical Decision Making [facility] Narrative: Presenting with high blood pressure with some product discomfort, was undergoing coronary CTA, with unremarkable echo in 2023, as well as nuclear medicine test that was negative in November of this year, she had some nonspecific symptoms such as flashes in her eyes, and chest pressure, older PCP was instructed to come in, at the time of my evaluation on blood pressure has decreased and she did not have any chest pain, no ECG changes to suspect underlying ACS, however her 1st troponin was 185 we will anticipate admission and we will discuss with syrup mixer ( updated Dr. Sparrow ) 17:32 patient is becoming very anxious no chest pain I will give Valium, aspirin and then re-evaluate if she is still hypotensive we will give additional pain medications and we will trend her troponin this has been discussed with Dr. Sparrow and patient has been updated. 1945: Troponin went up to 195, I have updated Dr. Sparrow the patient will be admitted, pt is CP free Differential Diagnosis Differential Diagnoses: The differential diagnosis associated with the presentation includes (Hypertensive emergency, SHARLA, ACS, subarachnoid hemorrhage, stroke, ) Admission/Observation Consideration of admission/observation: Escalation of care including admission/observation considered Consult Healthcare Provider Management of the patient was discussed with: Cosmetic Sales Consultant (Dr. Sparrow) Lab Data MDM Lab Attestation statement: I reviewed the patient's lab results. 01/23/25 16:36 01/23/25 16:36 Labs: Lab Results 01/23/25 01/23/25 Range/Units 16:36 18:48 WBC 6.3 (4.8-10.8) X10*3/uL RBC 4.37 (4.20-5.50) X10*6/uL Hgb 12.1 (12.0-16.0) g/dl Hct 33.2 L (37.0-47.0) % MCV 76.0 L (80.0-98.0) fL MCH 27.7 (27.0-33.0) pg MCHC 36.4 H (31.0-35.0) g/dl RDW 14.4 (11.0-16.0) % Plt Count 291 (160-400) X10*3/uL MPV 10.3 (9.4-12.3) fL Immature Gran % (Auto) 0.2 (0.0-0.4) % Neut % (Auto) 46.1 (45-73) % Lymph % (Auto) 45.2 H (20-40) % [place] % (Auto) 7.7 (2-11) % Eos % (Auto) 0.3 (0-4) % Baso % (Auto) 0.5 (0-2) % Lymph # (Auto) 2.9 (1.2-4.9) X10*3/uL [place] # (Auto) 0.5 (0.1-1.2) X10*3/uL Eos # (Auto) 0.0 (0.0-0.4) X10*3/uL Baso # (Auto) 0.0 (0.0-0.2) X10*3/uL Abs Immat Gran (auto) 0.01 (0.00-0.03) X10*3/uL Absolute Neuts (auto) 2.9 (2.0-8.3) x10*3/uL Absolute Nucleated RBC 0.000 (0.0-0.012) X10*3/uL Nucleated RBC % (auto) 0.0 (0.0-0.2) /100WBC Sodium 140 (135-145) mmol/L Potassium 3.8 (3.3-5.1) mmol/L Chloride 107 (96-108) mmol/L Carbon Dioxide 25 (22-29) mmol/L Anion Gap 12 (12-20) BUN 10 (9-16) mg/dL Creatinine 0.70 (0.5-1.4) mg/dL Estim Creat Clear Calc 63.9 Estimated GFR > 60 Random Glucose 138 H (60-115) mg/dL Calcium 9.4 (8.4-10.2) mg/dL Magnesium 2.0 (1.6-2.6) mg/dL Total Bilirubin 0.4 (0.0-1.0) mg/dL AST 23 (5-31) U/L ALT 18 (0-31) U/L Alkaline Phosphatase 73 (39-117) U/L Troponin I High Sens 185.9 H* 195.1 H* (<3.5-17.0) ng/L Total Protein 7.6 (6.5-8.0) g/dL Albumin 4.3 (3.5-5.0) g/dL Independent Interpretation I performed an independent interpretation of an: EKG (82 beats per minute otherwise normal ECG without dysrhythmia, AV heidi blocks or ST-T changes to suspect underlying ACS, my independent interpretation) Critical Care Time Critical Care Time Critical Care Time: Yes Total Critical Care Time: 62 Attestation: Time is exclusive of separately billable procedures. Time includes: direct patient care, patient reassessment, coordination of patient care, interpretation of data (laboratory data, pulse oximetry, arterial blood gases and chest xrays), review of patient's medical records, medical consultation and documentation of patient care. Procedures excluded from critical care time: central intravenous line placement and electrocardiography. Discharge Plan Discharge Clinical Impression: Chest pain, precordial, Demand ischemia Patient Disposition: Admitted As Inpatient Print Language: Maldivian
[2025-01-23 16:40] LABS: MANUAL DIFF FLAG NO
[2025-01-23 16:42] LABS: Hematocrit 33.2 % (37.0-47.0); Hemoglobin 12.1 g/dl (12.0-16.0); Imm Gran Abs Auto 0.01 X10*3/uL (0.00-0.03); Imm Gran Pct Auto 0.2 % (0.0-0.4); Lymphocytes Absolute Auto 2.9 X10*3/uL (1.2-4.9); Mean Corpuscular HGB Conc 36.4 g/dl (31.0-35.0); Mean Corpuscular Hemoglobin 27.7 pg (27.0-33.0); Mean Corpuscular Volume 76.0 fL (80.0-98.0); NRBC Abs Auto 0.000 X10*3/uL (0.0-0.012); NRBC Pct Auto 0.0 /100WBC (0.0-0.2); Platelet Count 291 X10*3/uL (160-400); Red Blood Count 4.37 X10*6/uL (4.20-5.50); White Blood Count 6.3 X10*3/uL (4.8-10.8)
[2025-01-23 16:56] LABS: Alanine Aminotransferase 18 U/L (0-31); Albumin Level 4.3 g/dL (3.5-5.0); Alkaline Phosphatase 73 U/L (39-117); Anion Gap 12 (12-20); Aspartate Amino Transferase 23 U/L (5-31); Blood Urea Nitrogen 10 mg/dL (9-16); Calcium 9.4 mg/dL (8.4-10.2); Carbon Dioxide 25 mmol/L (22-29); Chloride 107 mmol/L (96-108); Creatinine Clr Calc Pharmacy 63.9; Estimated Glomerular Filt Rate > 60; Magnesium 2.0 mg/dL (1.6-2.6); Potassium 3.8 mmol/L (3.3-5.1); Sodium 140 mmol/L (135-145); Total Protein 7.6 g/dL (6.5-8.0)
[2025-01-23 17:07] LABS: Troponin-I High Sensitivity 185.9 ng/L (<3.5-17.0)
[2025-01-23] MEDS: diazePAM 10 MG/2 ML CARTRIDGE 2.5 MG IVPUSH ×2 (17:51→20:13)
[2025-01-23 19:23] LABS: Troponin-I High Sensitivity 195.1 ng/L (<3.5-17.0)
--- NOTE | 2025-01-23 19:54 | PM.IMHP ---
History of Present Illness Date of Service: 01/23/25 Chief Complaint: elevated bp This has a 79-year-old female with pertinent history of lung cancer status post left lobectomy, hypertension, mixed hyperlipidemia, asthma not on home oxygen, irritable bowel syndrome, diet-controlled type 2 [id number] diabetes mellitus, mood disorder, fibromyalgia who was sent to the emergency department for evaluation of elevated blood pressure. Patient states she was sent to the ER by her PCP as her systolic was above 200. Patient states that she was stressed about her cardiac CT scan which she got at [facility] on the day of presentation. Patient received metoprolol and nitroglycerin to lower her blood pressure. Patient also has been having associated headache and chest discomfort which did not relieve with nitroglycerin. No fever, chills, palpitations, shortness of breath, abdominal pain, changes in urinary or bowel habits. Chest pain did not relieve with rest and is not associated with sweating. In the emergency department, troponin was found to be 185 with repeat 195 and cardiology was consulted who recommended admission for observation with echo in a.m.. Aspirin was given and no indication for anticoagulation as per Cardiology. Review of Systems Constitutional: Constitutional: Reports fatigue, Reports headache(s) and Reports malaise ENT: Reports headache(s) Cardiovascular: Cardiovascular: Reports chest pain Respiratory: Respiratory: Reports no additional respiratory complaints Gastrointestinal: Gastrointestinal: Reports loose stools Genitourinary: Genitourinary: Reports no additional female genitourinary complaints Neurologic: Reports headache(s) Endocrine: Endocrine: Reports fatigue [facility] Medical History Peptic ulcer Lung cancer Psoriasis Type 2 diabetes mellitus GERD (gastroesophageal reflux disease) Osteopenia Pulmonary nodule Depression Fibromyalgia IBS (irritable bowel syndrome) High cholesterol HTN (hypertension) Chronic cough Allergic rhinitis Cough due to bronchospasm Family History Father Myocardial infarction Mother Diabetic coma Sister No problems noted. 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 Cognitive needs: No Hearing needs: No Vision needs: Yes (Rx glasses) Meds Allergies Allergy/AdvReac Type Severity Reaction Status Date / Time niacin (Niacin) Allergy Mild RASH Verified 01/23/25 15:38 lactose (Lactose) AdvReac Mild DIARRHEA Verified 01/23/25 15:38 atorvastatin (Lipitor) AdvReac Unknown Unknown Verified 01/23/25 15:38 celecoxib (Celebrex) AdvReac Unknown Unknown Verified 01/23/25 15:38 simvastatin AdvReac Unknown Unknown Verified 01/23/25 15:38 Home Medications ?Medication ?Instructions ?Recorded ?Confirmed ?Last Taken ?Type blood sugar diagnostic #10 ea 02/29/20 01/22/23 01/23/25 History pravastatin 80 mg tablet 80 mg PO DAILY 02/29/20 01/23/25 01/23/25 History blood-glucose meter (FreeStyle #1 ea 05/10/21 01/22/23 01/23/25 History [place] Lite kit) lancets 28 gauge (FreeStyle #100 ea 05/10/21 01/22/23 01/23/25 History Lancets) omeprazole 20 mg capsule,delayed 20 mg PO BID 11/11/21 01/23/25 01/23/25 History release loratadine 10 mg tablet (Claritin) 10 mg PO DAILY 10/26/23 01/23/25 01/23/25 History benzonatate 100 mg capsule 100 mg PO Q8H PRN cough 10/03/24 01/23/25 01/23/25 History fluticasone propionate 110 2 puff inhalation BID 12/05/24 01/23/25 01/23/25 History mcg/actuation HFA aerosol inhaler prednisone 10 mg tablet 10 mg PO DAILY 01/23/25 01/23/25 01/23/25 History sertraline 25 mg tablet 25 mg PO DAILY 01/23/25 01/23/25 01/23/25 History Physical Exam Vital Signs and Narrative: Vital Signs: Last Vital Signs Temp 97.8 F 01/23/25 19:22 Pulse 74 01/23/25 19:35 Resp 20 01/23/25 19:35 BP 178/84 H 01/23/25 19:35 Pulse Ox 96 01/23/25 19:35 O2 Del Method Room Air 01/23/25 19:35 BMI result Body Mass Index 26.8 Const: Other: Elderly female lying in bed in no distress Neck supple, no JVD Regular rate and rhythm, S1-S2 heard Regular breath sounds bilaterally, no wheezing or crackles appreciated Abdomen soft nontender, no guarding, no rigidity Patient is awake, alert and oriented to self, place, time and person ; no focal motor deficit Psych: Normal mood No pedal edema Results Labs 01/23/25 16:36 01/23/25 16:36 Labs: Laboratory Results - last 24 hr 01/23/25 16:36 MCV 76.0 L MCH 27.7 MCHC 36.4 H RDW 14.4 Plt Count 291 MPV 10.3 Immature Gran % (Auto) 0.2 Neut % (Auto) 46.1 Lymph % (Auto) 45.2 H [place] % (Auto) 7.7 Eos % (Auto) 0.3 Baso % (Auto) 0.5 Lymph # (Auto) 2.9 [place] # (Auto) 0.5 Eos # (Auto) 0.0 Baso # (Auto) 0.0 Abs Immat Gran (auto) 0.01 Absolute Neuts (auto) 2.9 Absolute Nucleated RBC 0.000 Nucleated RBC % (auto) 0.0 Anion Gap 12 Estim Creat Clear Calc 63.9 Estimated GFR > 60 Random Glucose 138 H Calcium 9.4 Magnesium 2.0 Total Bilirubin 0.4 AST 23 ALT 18 Alkaline Phosphatase 73 Total Protein 7.6 Albumin 4.3 Assessment and Plan (1) Hypertensive urgency: Status: Acute (2) Elevated troponin: Status: Acute Plan This has a 79-year-old female with pertinent history of lung cancer status post left lobectomy, hypertension, mixed hyperlipidemia, asthma not on home oxygen, irritable bowel syndrome, diet-controlled type 2 [id number] diabetes mellitus, mood disorder, fibromyalgia who was sent to the emergency department for evaluation of elevated blood pressure. #. Hypertensive urgency/emergency: Uncontrolled blood pressure likely in the setting of stress. Blood pressure appropriately lowered in the ER. Will resume home antihypertensives and closely monitor blood pressure. May need to titrate antihypertensives prior to discharge. #. Elevated troponin, likely type 2 in the setting of above. Cardiology consulted from the ER >> no indication of anticoagulation. Patient given aspirin. Will trend troponin and obtain echo #. Mixed hyperlipidemia: On statin #. Mild persistent asthma: Continue home inhalers. No exacerbation during admission #. Diet-controlled type 2 [id number]-fucixmvri diabetes mellitus: Blood sugar within normal limits #. Mood disorder: Continue home mood stabilizers Med rec pending DVT prophylaxis: Lovenox Full code. Discussed with patient at bedside Quality Stroke Does the patient have a stroke diagnosis?: No VTE Prior VTE?: No VTE Risk Level:: Medical - moderate - high VTE Device Contraindication: Treatment Not Indicated VTE Drug Contraindication: N/A - Med Ordered
--- NOTE | 2025-01-23 19:57 | PC.NURSE ---
Out of bed to bathroom. Ambulates with steady gait. Patient anxious about being discharged home and wishes to stay in ED for observation. Dr. Alexandre speaking with hospitalist at this time.
--- NOTE | 2025-01-23 19:59 | PC.NURSE ---
Dr. Haney at bedside. Medication reconciliation completed.
--- NOTE | 2025-01-23 20:23 | PHA.MEDREC ---
Pharmacy Consult ? Medication Reconciliation Pharmacy has completed the medication reconciliation. Med rec completed by nursing, verified by pharmacy. Spoke to Autumn who confirmed patient takes 0.5mg lorazepam at 0900 & 1630 then 2mg at bedtime.
--- NOTE | 2025-01-23 21:26 | PC.NURSE ---
this rn assumed care of pt, pt resting in stretcher, no acute distress noted
[2025-01-23 22:21] LABS: Glucose, Whole Blood 171 mg/dL (60-115)
--- NOTE | 2025-01-23 22:23 | PC.NURSE ---
pt medicated per mar, tolerated whole well with water. pt assisted to bathroom, ambulatory with steady gait with no difficulties.
[2025-01-24 02:44] VITALS: BP 125/59; PULSE 78; RESP 17; TEMP 36.6; O2SAT 95
[2025-01-24 06:03] VITALS: BP 115/55; PULSE 76; RESP 18; TEMP 36.7; O2SAT 94
--- NOTE | 2025-01-24 06:05 | PC.NURSE ---
patient resting quietly in room, no complaints at this time. vss, call hernández within reach.
[2025-01-24 06:41] LABS: MANUAL DIFF FLAG NO
[2025-01-24 06:57] LABS: Anion Gap 14 (12-20); Blood Urea Nitrogen 14 mg/dL (9-16); Calcium 9.1 mg/dL (8.4-10.2); Carbon Dioxide 22 mmol/L (22-29); Chloride 107 mmol/L (96-108); Creatinine Clr Calc Pharmacy 68.9; Estimated Glomerular Filt Rate > 60; Potassium 3.4 mmol/L (3.3-5.1); Sodium 140 mmol/L (135-145)
--- NOTE | 2025-01-24 07:00 | CA_ITS ---
Transthoracic Echocardiogram Patient (Last, First, Middle): Julienne Candelario I Gender: Female Date of : 1945 Age: 79 Procedure Date: 01/24/2025 Procedure Type: Transthoracic Echocardiogram Location: ER Height: 162.56 cm Weight: 70.76 kg BSA: 1.76 m2 Heart Rate: 75 bpm BP: 115 / 55 mmHg Fire Boss: [email or web address] Referring MD: Deidra Haney MD Cartographic Engineer: Shreyas Sparrow MD Symptoms: Elevated troponin Study Quality: Adequate w Contrast ECG Rhythm: Sinus Conclusions: - 1. Hyperdynamic LV ejection fraction greater than 70% with impaired relaxation filling pattern 2. Moderately enlarged left atrium 3. Severe mitral annular calcification with mild aortic stenosis 4. Normal RV systolic pressure 5. Mildly dilated ascending aorta at 3.7 cm 6. No pericardial effusion Findings Procedure Information Contrast agent, definity, is being given per protocol without apparent complications. Left Ventricle Normal left ventricular cavity size. There is mildly increased left ventricular wall thickness. The left ventricular systolic function is hyperdynamic. The visually estimated ejection fraction is >70%. There is no dynamic left ventricular outflow tract obstruction. Spectral Doppler is indicative of an impaired relaxation filling pattern. There is moderate septal asymmetric hypertrophy. Right Ventricle Normal right ventricular cavity size and systolic function. Atria The left atrium is moderately dilated. There is no evidence of interatrial shunt. The right atrium is likely dilated. Aortic Valve There is moderate calcification of the aortic valve. There is mild aortic valve stenosis. The peak aortic gradient is 27 mmHg.The mean gradient is 16 mmHg. The aortic valve area is 1.70 cm2. There is no aortic valve regurgitation. Mitral Valve There is mild anterior and severe posterior mitral leaflet thickening. There is severe mitral annular calcification. There is mild mitral valve regurgitation. There is no mitral valve stenosis. Pulmonic Valve The pulmonic valve was not well visualized. Tricuspid Valve Normal tricuspid valve structure. There is mild tricuspid valve regurgitation. The right ventricular systolic pressure is normal. The right ventricular systolic pressure is 30 mmHg. Normal right atrial pressure. There is no evidence of pulmonary hypertension. Great Vessels The pulmonary artery was not well visualized. There is mild dilatation of the ascending aorta measuring 3.70 cm. Venous The inferior vena cava is normal in size and collapses greater than 50% with inspiration. Pericardium/Pleural There is no evidence of pericardial effusion. Prior Study Comparison No significant change compared to prior study dated: 03/15/2024. Measurements 2D Linear Measurements IVSd: 1.24 0.6-0.9/0.6-1.0 cm LVIDd: 4.17 3.9-5.3/4.2-5.9 cm LVIDd Index: 2.37 2.4-3.2/2.2-3.1 cm/m2 LVIDs: 3.04 2.0-3.6 cm LVPWd: 0.92 0.7-1.1 cm LA Diam: 3.50 2.7-3.8/3.0-4.0 cm LAIDs Index: 1.99 1.5-2.3 cm/m2 LV Mass: 187.74 67-162/88-224 g LV Mass Index: 106.67 43-95/49-115 g/m2 LVOT Diam: 2.10 3.0+(-)1.3 cm 2D Systolic Function EF 4C: 85.20 >55% EF 2C: 80.00 >55% EF BiP: 82.80 >55% Mitral Valve MV VTI: 0.33 MV Pk Yeison: 1.30 MV Mn Yeison: 0.89 MV Pk Grad: 7.00 MV Mn Grad: 4.00 MV Pk E: 0.97 MV PK A: 1.25 MV Decel Time: 316.00 E/A: 0.80 E'Lateral: 5.00 E'Medial: 3.92 E/E' Med: 24.80 E/E' Lat: 19.50 PHT: 93.00 MVA PHT: 2.37 MVA Continuity: 2.64 Decel Johnston: 3.08 Aortic Valve AoV Pk Yeison: 2.62 AoV Mn Yeison: 1.87 AoV VTI: 0.51 AoV Pk Grad: 27.00 Aov Mn Grad: 16.00 DAVEY Cont.VTI: 1.70 LVOT LVOT Pk Yeison: 1.15 LVOT Mn Yeison: 0.82 LVOT VTI: 0.25 LVOT Pk Grad: 5.00 LVOT Mn Grad: 3.00 LVOT Diam: 2.10 LVOT Area: 3.46 Diastolic Function MV Pk E: 0.97 MV Pk A: 1.25 E/A: 0.80 E'Medial: 3.92 E/E' Med: 24.80 E' Laterial: 5.00 E/E' Lat: 19.50 Right Ventricle TAPSE (mm): 22.00 TVS' Yeison: 14.00 Tricuspid Valve TR Pk Yeison: 2.36 TR Pk Grad: 22.00 RA Press: 8.00 RVSP: 30.00 Great Vessels Aorta Sinus of Valsalva: 2.90 2.0-3.5 cm Ao Asc: 3.70 2.1-3.4 cm Pulmonary Valve PV Pk Yeison: 0.96 Peak PV Grad: 4.00 Updated in Other Vendor System with Status of Final Shreyas Sparrow MD electronically signed on 01/24/2025 1:20:43 PM with status of Final
[2025-01-24 07:01] LABS: Hematocrit 32.8 % (37.0-47.0); Hemoglobin 11.8 g/dl (12.0-16.0); Imm Gran Abs Auto 0.01 X10*3/uL (0.00-0.03); Imm Gran Pct Auto 0.1 % (0.0-0.4); Lymphocytes Absolute Auto 4.0 X10*3/uL (1.2-4.9); Mean Corpuscular HGB Conc 36.0 g/dl (31.0-35.0); Mean Corpuscular Hemoglobin 27.6 pg (27.0-33.0); Mean Corpuscular Volume 76.8 fL (80.0-98.0); NRBC Abs Auto 0.000 X10*3/uL (0.0-0.012); NRBC Pct Auto 0.0 /100WBC (0.0-0.2); Platelet Count 266 X10*3/uL (160-400); Red Blood Count 4.27 X10*6/uL (4.20-5.50); White Blood Count 6.8 X10*3/uL (4.8-10.8)
[2025-01-24 07:10] LABS: Troponin-I High Sensitivity 172.6 ng/L (<3.5-17.0)
[2025-01-24 08:00] VITALS: BP 138/79; PULSE 68; RESP 15; TEMP 36.9; O2SAT 99
[2025-01-24 08:15] VITALS: BP 115/55; PULSE 79
[2025-01-24] MEDS: Fluticasone Propionate 100 MCG BLST.W.DEV 2 PUFF INHALE (08:55)
[2025-01-24 09:05] LABS: Glucose, Whole Blood 127 mg/dL (60-115)
[2025-01-24] MEDS: 0.9 % Sodium Chloride Flush 3 ML SYRINGE IVFLUSH (09:21)
--- NOTE | 2025-01-24 10:20 | PC.NURSE ---
Pt has been A&O for shift, VSS NAD. Ambulated to and from BR independently. NSR on monitor. Gemma PO well
--- NOTE | 2025-01-24 10:41 | PM.CNCAR ---
History of Present Illness History of Present Illness Date of Service: 01/24/25 Requesting physician: Gilson Yusuf Consult reason: troponin elevation and other ( Hypertensive urgency) Chief complaint: Elevated BP Narrative: I was consulted to see Julienne in cardiology consultation today for elevated troponins And hypertensive urgency. patient is 79-year-old female with prior history of hypertension, significant anxiety due to recent multiple stressors in her life, mild aortic stenosis. Being followed in cardiology clinic. Yesterday she in fact had a coronary CTA performed as an outpatient more ongoing exertional chest discomfort which was concerning despite recent normal myocardial perfusion imaging. I reviewed the images of the myocardial perfusion imaging and truly looks like there was no significant perfusion defects. However because of concern for possible balanced ischemia she underwent a coronary CTA as she continued to have chest pain syndrome. Patient says over the last 2 years she has had multiple stressors related to her own personal health as well as her health who unfortunately last May and since then she had further social stressors. she does have lot of anxiety issues has been prescribed sertraline which she had not been taking. She has been prescribed other medications blood pressure. However she came yesterday with lot of anxiety and had significantly elevated blood pressure chest pressure. EKGs did not show any significant ischemic changes slightly elevated. The remained elevated and mostly flat. She was then treated for hypertensive urgency and since her blood pressures control her chest pain syndrome has resolved. She had an echocardiogram within last year which showed mild hypertensive heart disease with mild aortic stenosis. Cardiology consult was sought because of her elevated troponins. She does have exertional chest pain intermittently. Also had visual floaters especially when her blood pressure is elevated. She has no focal neurologic deficits. Denies any orthopnea, PND, leg edema. No prolonged palpitation irregular heartbeat. Review of Systems Constitutional: Constitutional: Reports other ( Significant anxiety) Eyes: Eyes: Reports floaters ( when blood pressure is elevated) Cardiovascular: Cardiovascular: Reports chest pain at rest, Denies lightheadedness, Denies Loss of Consciousness, Denies palpitations, Denies dyspnea on exertion, Denies orthopnea and Denies paroxysmal nocturnal dyspnea Respiratory: Respiratory: Reports no additional respiratory complaints and Denies dyspnea on exertion Gastrointestinal: Gastrointestinal: Reports no additional gastrointestinal complaints Genitourinary: Genitourinary: Reports no additional female genitourinary complaints Musculoskeletal: Musculoskeletal: Reports no additional musculoskeletal complaints Integumentary/Breasts: Skin/Breast: Reports system reviewed and no additional complaints, except as docu Neurologic: Reports system reviewed and no additional complaints, except as documented Psychiatric: Psychiatric: Reports no additional psychiatric complaints Endocrine: Endocrine: Reports no additional endocrine complaints and Denies palpitations PMFSH Past Medical History Medical History Peptic ulcer Lung cancer Psoriasis Type 2 diabetes mellitus GERD (gastroesophageal reflux disease) Osteopenia Pulmonary nodule Depression Fibromyalgia IBS (irritable bowel syndrome) High cholesterol HTN (hypertension) Chronic cough Allergic rhinitis Cough due to bronchospasm Family History Family History Father Myocardial infarction Mother Diabetic coma Sister No problems noted. 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 Cognitive needs: No Hearing needs: No Vision needs: Yes (Rx glasses) Meds Allergies Allergy/AdvReac Type Severity Reaction Status Date / Time niacin (Niacin) Allergy Mild RASH Verified 01/23/25 15:38 lactose (Lactose) AdvReac Mild DIARRHEA Verified 01/23/25 15:38 atorvastatin (Lipitor) AdvReac Unknown Unknown Verified 01/23/25 15:38 celecoxib (Celebrex) AdvReac Unknown Unknown Verified 01/23/25 15:38 simvastatin AdvReac Unknown Unknown Verified 01/23/25 15:38 Active Medications: Current Medications Acetaminophen (Acetaminophen 325 Mg Tablet) 650 mg PO Q6H PRN PRN Reason: Pain, Mild 1-3,fever,headache Last Admin: 01/23/25 22:14 Dose: 650 mg Benzonatate (Benzonatate 100 Mg Capsule) 100 mg PO Q8H PRN PRN Reason: Cough Last Admin: 01/23/25 21:50 Dose: 100 mg Calcium Carbonate (Calcium Carbonate 750 Mg Tab.Chew) 750 mg PO Q4H PRN PRN Reason: Heartburn Carvedilol (Carvedilol 3.125 Mg Tablet) 6.25 mg PO BID [facility]; Protocol Dextrose (Dextrose 50 % 25 Gm/50 Ml Syringe) 25 gm IVPUSH Q15M PRN; Protocol PRN Reason: per Hypoglycemia Standing Ord. Enoxaparin Sodium (Enoxaparin Sodium 40 Mg/0.4 Ml Syringe) 40 mg SUBCUT Q24H [facility] Last Admin: 01/23/25 20:56 Dose: 40 mg Fluoxetine HCl (Fluoxetine Hcl 10 Mg Capsule) 10 mg PO DAILY [facility] Last Admin: 01/24/25 08:14 Dose: 10 mg Fluticasone Propionate (Fluticasone Propionate 100 Mcg Blst.W.Dev) 2 puff INHALE RBID [facility] Last Admin: 01/24/25 08:55 Dose: 2 puff Glucose (Glucose Gel 15 Gm Gel..Gram.) 15 gm PO Q15M PRN; Protocol PRN Reason: per Hypoglycemia Standing Ord. Hydralazine HCl (Hydralazine Hcl 25 Mg Tablet) 25 mg PO BID [facility]; Protocol Last Admin: 01/24/25 08:15 Dose: 25 mg Insulin Human Lispro (Insulin Lispro 100 Unit/Ml 3 Ml Vial) 0 unit SUBCUT QIDACHS [facility]; Protocol Loratadine (Loratadine 10 Mg Tablet) 10 mg PO DAILY [facility] Last Admin: 01/24/25 08:14 Dose: 10 mg Lorazepam (Lorazepam 0.5 Mg Tablet) 0.5 mg PO BID@0900,1630 [facility] Last Admin: 01/24/25 08:14 Dose: 0.5 mg Lorazepam (Lorazepam 1 Mg Tablet) 2 mg PO BEDTIME [facility] Last Admin: 01/23/25 21:50 Dose: 2 mg Magnesium Hydroxide (Milk Of Magnesia 30 Ml Oral.Susp) 30 ml PO DAILY PRN PRN Reason: Constipation Melatonin (Melatonin 3 Mg Tablet) 6 mg PO BEDTIME PRN PRN Reason: Insomnia Omeprazole (Omeprazole 20 Mg Capsule.Dr) 20 mg PO BID@0630,1630 [facility] Last Admin: 01/24/25 06:02 Dose: 20 mg Ondansetron HCl (Ondansetron Hcl 4 Mg/2 Ml Vial) 4 mg IVPUSH Q8H PRN PRN Reason: Nausea and Vomiting Pravastatin Sodium (Pravastatin Sodium 80 Mg Tablet) 80 mg PO DAILY [facility] Last Admin: 01/24/25 08:54 Dose: 80 mg Sertraline HCl (Sertraline Hcl 25 Mg Tablet) 25 mg PO DAILY [facility] Last Admin: 01/24/25 08:14 Dose: 25 mg Sodium Chloride (0.9 % Sodium Chloride Flush 3 Ml Syringe) 3 ml IVFLUSH QSHIFT [facility] Last Admin: 01/24/25 09:21 Dose: 3 ml Home Medications ?Medication ?Instructions ?Recorded ?Confirmed ?Last Taken ?Type blood sugar diagnostic #10 ea 02/29/20 01/22/23 01/23/25 History pravastatin 80 mg tablet 80 mg PO DAILY 02/29/20 01/23/25 01/23/25 History blood-glucose meter (FreeStyle #1 ea 05/10/21 01/22/23 01/23/25 History [place] Lite kit) lancets 28 gauge (FreeStyle #100 ea 05/10/21 01/22/23 01/23/25 History Lancets) omeprazole 20 mg capsule,delayed 20 mg PO BID@0630,1630 11/11/21 01/23/25 01/23/25 History release loratadine 10 mg tablet (Claritin) 10 mg PO DAILY 10/26/23 01/23/25 01/23/25 History benzonatate 100 mg capsule 100 mg PO Q8H PRN cough 10/03/24 01/23/25 01/23/25 History fluticasone propionate 110 2 puff inhalation BID 12/05/24 01/23/25 01/23/25 History mcg/actuation HFA aerosol inhaler azelastine 137 mcg (0.1 %) nasal 2 spray intranasal DAILY PRN 01/23/25 01/23/25 01/23/25 History spray alergies lorazepam 1 mg tablet 0.5 mg PO BID@0900,1630 01/23/25 01/23/25 Unknown History lorazepam 1 mg tablet 2 mg PO BEDTIME Anxiety 01/23/25 01/23/25 01/23/25 History prednisone 10 mg tablet 10 mg PO DAILY 08/01/23/25 01/23/25 History sertraline 25 mg tablet 25 mg PO DAILY 01/23/25 01/23/25 01/23/25 History Physical Exam Vital Signs: Vital Signs: Last Vital Signs Temp 98.4 F 01/24/25 08:00 Pulse 79 01/24/25 08:15 Resp 15 01/24/25 08:00 BP 115/55 L 01/24/25 08:15 Pulse Ox 99 01/24/25 08:00 O2 Del Method Room Air 01/24/25 08:00 BMI result Body Mass Index 26.8 Const: General: cooperative, comfortable, no acute distress, alert, awake and anxious Nutritional Appearance: average body habitus Orientation/consciousness: patient oriented x3 Limitations: no limitations HEENT: Head: Yes normocephalic and Yes atraumatic Neck: Neck: Yes trachea midline, Yes supple and Yes no JVD Resp: Effort & Inspection: normal respiratory effort Auscultation: clear to auscultation bilaterally Cardio: Jugular venous distension: no JVD Rate: regular rate Rhythm: regular rhythm Heart sounds: S1 normal heart sound present, S2 normal heart sound present, no click, no gallops and Murmur heart sound present systolic early, decrescendo and crescendo GI: Auscultation: normal bowel sounds Skin: General skin exam: no rashes or lesions noted Neuro: General: patient oriented x3 and no focal motor deficits Extrem: General: Yes no clubbing, cyanosis or edema Objective Labs and Meds 01/24/25 06:34 01/24/25 06:34 Lab results: Laboratory Results - last 24 hr 01/23/25 01/23/25 01/23/25 16:36 18:48 22:16 WBC 6.3 RBC 4.37 Hgb 12.1 Hct 33.2 L MCV 76.0 L MCH 27.7 MCHC 36.4 H RDW 14.4 Plt Count 291 MPV 10.3 Immature Gran % (Auto) 0.2 Neut % (Auto) 46.1 Lymph % (Auto) 45.2 H [place] % (Auto) 7.7 Eos % (Auto) 0.3 Baso % (Auto) 0.5 Lymph # (Auto) 2.9 [place] # (Auto) 0.5 Eos # (Auto) 0.0 Baso # (Auto) 0.0 Abs Immat Gran (auto) 0.01 Absolute Neuts (auto) 2.9 Absolute Nucleated RBC 0.000 Nucleated RBC % (auto) 0.0 Sodium 140 Potassium 3.8 Chloride 107 Carbon Dioxide 25 Anion Gap 12 BUN 10 Creatinine 0.70 Estim Creat Clear Calc 63.9 Estimated GFR > 60 POC Glucose 171 H Random Glucose 138 H Calcium 9.4 Magnesium 2.0 Total Bilirubin 0.4 AST 23 ALT 18 Alkaline Phosphatase 73 Troponin I High Sens 185.9 H* 195.1 H* Total Protein 7.6 Albumin 4.3 01/24/25 01/24/25 06:34 08:59 WBC 6.8 RBC 4.27 Hgb 11.8 L Hct 32.8 L MCV 76.8 L MCH 27.6 MCHC 36.0 H RDW 14.5 Plt Count 266 MPV 10.4 Immature Gran % (Auto) 0.1 Neut % (Auto) 31.5 L Lymph % (Auto) 59.4 H [place] % (Auto) 7.2 Eos % (Auto) 1.2 Baso % (Auto) 0.6 Lymph # (Auto) 4.0 [place] # (Auto) 0.5 Eos # (Auto) 0.1 Baso # (Auto) 0.0 Abs Immat Gran (auto) 0.01 Absolute Neuts (auto) 2.1 Absolute Nucleated RBC 0.000 Nucleated RBC % (auto) 0.0 Sodium 140 Potassium 3.4 Chloride 107 Carbon Dioxide 22 Anion Gap 14 BUN 14 Creatinine 0.65 Estim Creat Clear Calc 68.9 Estimated GFR > 60 POC Glucose 127 H Random Glucose 126 H Calcium 9.1 Magnesium Total Bilirubin AST ALT Alkaline Phosphatase Troponin I High Sens 172.6 H* Total Protein Albumin EKG shows normal sinus rhythm with normal EKG Assessment and Plan (1) Elevated troponin: Status: Acute elevated troponin which is suggestive of demand ischemia related to hypertensive urgency which is secondary to her significant anxiety disorder I had a very detailed discussion about management of anxiety disorder to prevent spiking of a blood pressure that would lead to hospitalizations again I have also advised her to restart taking her sertraline therapy to help with the anxiety/depression disorder. Other behavioral therapy to help with her anxiety was also discussed with her. Continue current antihypertensive therapy as prescribed at home. Continue the aspirin therapy. Continue statin therapy. Could have underlying obstructive coronary artery disease despite normal myocardial perfusion imaging and she already has undergone a coronary CTA yesterday, results are pending. Will follow up and see if we can get a resulted today. However I do not think she requires continues inpatient observation as this appears to be secondary to hypertensive urgency related to anxiety. She can be released home with outpatient follow-up and will set her up for follow-up next week with the clinic. Will follow with her as outpatient. Thank you for allowing me to partake in his care Procedures Date of Service Date of Service: 01/24/25
--- NOTE | 2025-01-24 10:46 | MHC.CM.PN ---
Thalia 01/24/25, Pt. lives alone, she does not use home health services or DME. HCP is her dtr Monica and her son Que, copy requested. Family to transport home at DC, DCP; home, self care, CM to follow for DC needs.
[2025-01-24 12:00] VITALS: BP 120/68; PULSE 83; RESP 20; TEMP 36.9; O2SAT 95
[2025-01-24 12:26] LABS: Glucose, Whole Blood 207 mg/dL (60-115)
--- NOTE | 2025-01-24 17:24 | P.DS_ITS ---
DS: Providers Provider Date of Service: 01/23/25 Date of admission: 01/23/25 19:54 Date of discharge: 01/24/25 Primary care physician: Karin Fuentes MD Consults: 01/23/25 20:13 Consult to Cardiology Routine Consulting Provider: [facility] Reason for consultation: elevated troponin Has provider been notified: Yes Attending physician on discharge: Gilson Yusuf DS: Diagnosis Discharge Diagnosis (1) Elevated troponin: Status: Acute DS: Summary Hospital Course Hospital Course: As per H&P, This has a 79-year-old female with pertinent history of lung cancer status post left lobectomy, hypertension, mixed hyperlipidemia, asthma not on home oxygen, irritable bowel syndrome, diet-controlled type 2 [id number] diabetes mellitus, mood disorder, fibromyalgia who was sent to the emergency department for evaluation of elevated blood pressure. Patient states she was sent to the ER by her PCP as her systolic was above 200. Patient states that she was stressed about her cardiac CT scan which she got at [facility] on the day of presentation. Patient received metoprolol and nitroglycerin to lower her blood pressure. Patient also has been having associated headache and chest discomfort which did not relieve with nitroglycerin. No fever, chills, palpitations, shortness of breath, abdominal pain, changes in urinary or bowel habits. Chest pain did not relieve with rest and is not associated with sweating. In the emergency department, troponin was found to be 185 with repeat 195 and cardiology was consulted who recommended admission for observation with echo in a.m.. Aspirin was given and no indication for anticoagulation as per Cardiology. Patient was admitted with hypertensive urgency/emergency. Blood pressure was appropriately lowered in the emergency room. She was resumed on her home antihypertensives; given recent recall from FDA regarding 6.25 mg b.i.d. carvedilol, her medications were transitioned to 3.125 mg b.i.d. (2 tablets twice a day). Of note, the patient complains of a chronic cough. As a result, she reports worsening of her chest pain with taking a deep breath and coughing. Pain is reproducible on palpation of the anterior chest wall. Consistent with costochondritis. Status at Discharge Functional status at discharge: independent ambulation Overall status at discharge: patient is back to baseline Time Attestation Total time managing care of this patient today: 35 mintues. Discharge Coordination Time (in mins): 15 Quality: Safe Use of Opioids Does Pt have an Active Cancer Diagnosis on the Problem List?: No Quality: Stroke Does the patient have a stroke diagnosis?: No Physical Exam Exam: Exam: General: A&O x3, oriented to time place person and situation, comfortable, no pain Cardiac: S1, S2 auscultated with no S3/4. Patient has RUSB murmur, systolic crescendo decrescendo; grade 3/5. Without radiation. Respiratory: Normal breath sounds auscultated throughout all lung zones, without wheezing, rales. Normal rate. GI/ : No abdominal pain on palpation, no masses or distentions. MSK: Normal ambulation without pain at bony prominences or musculature Neurological: Normal neurological examination on overview, without obvious CN II-XII abnormalities. Vital Signs: Vital Signs: Last Vital Signs Temp 98.4 F 01/24/25 12:00 Pulse 83 01/24/25 12:00 Resp 20 01/24/25 12:00 BP 120/68 01/24/25 12:00 Pulse Ox 95 01/24/25 12:00 O2 Del Method Room Air 01/24/25 12:00 BMI result Body Mass Index 26.8 DS: Data Data Completed and Pending Labs on day of discharge: Laboratory Results - last 24 hr 01/23/25 01/23/25 01/24/25 18:48 22:16 06:34 WBC 6.8 RBC 4.27 Hgb 11.8 L Hct 32.8 L MCV 76.8 L MCH 27.6 MCHC 36.0 H RDW 14.5 Plt Count 266 MPV 10.4 Immature Gran % (Auto) 0.1 Neut % (Auto) 31.5 L Lymph % (Auto) 59.4 H [place] % (Auto) 7.2 Eos % (Auto) 1.2 Baso % (Auto) 0.6 Lymph # (Auto) 4.0 [place] # (Auto) 0.5 Eos # (Auto) 0.1 Baso # (Auto) 0.0 Abs Immat Gran (auto) 0.01 Absolute Neuts (auto) 2.1 Absolute Nucleated RBC 0.000 Nucleated RBC % (auto) 0.0 Sodium 140 Potassium 3.4 Chloride 107 Carbon Dioxide 22 Anion Gap 14 BUN 14 Creatinine 0.65 Estim Creat Clear Calc 68.9 Estimated GFR > 60 POC Glucose 171 H Random Glucose 126 H Calcium 9.1 Troponin I High Sens 195.1 H* 172.6 H* 01/24/25 01/24/25 08:59 11:42 WBC RBC Hgb Hct MCV MCH MCHC RDW Plt Count MPV Immature Gran % (Auto) Neut % (Auto) Lymph % (Auto) [place] % (Auto) Eos % (Auto) Baso % (Auto) Lymph # (Auto) [place] # (Auto) Eos # (Auto) Baso # (Auto) Abs Immat Gran (auto) Absolute Neuts (auto) Absolute Nucleated RBC Nucleated RBC % (auto) Sodium Potassium Chloride Carbon Dioxide Anion Gap BUN Creatinine Estim Creat Clear Calc Estimated GFR POC Glucose 127 H 207 H Random Glucose Calcium Troponin I High Sens Discharge Plan Discharge Anticipated Discharge Date/Time: 01/24/25 12:08 Patient Disposition: Home, Self-Care Discharge Diagnosis: Hypertensive urgency with retrosternal chest pain secondary to costochondritis Referrals: Karin Fuentes MD [Primary Care Provider, Endocrinology] - 1 Week Discharge Medications: New carvedilol 3.125 mg tablet 6.25 mg PO BID 30 Days Qty: 120 0RF Rx Instructions: must administer with a meal/food famotidine 20 mg tablet 20 mg PO BID 30 Days Qty: 60 0RF Continued albuterol sulfate 90 mcg/actuation HFA aerosol inhaler 2 puff PO Q4-6H PRN (Reason: for dyspnea) Qty: 1 5RF hydralazine 25 mg tablet 25 mg PO BID 90 Days Qty: 180 1RF loratadine [Claritin] 10 mg Tablet 10 mg PO DAILY prednisone 10 mg tablet 10 mg PO DAILY sertraline 25 mg tablet 25 mg PO DAILY azelastine 137 mcg (0.1 %) spray,non-aerosol 2 spray intranasal DAILY PRN (Reason: alergies) Rx Instructions: administer into each nostril lorazepam 1 mg tablet 0.5 mg PO BID@0900,1630 lorazepam 1 mg tablet 2 mg PO BEDTIME Rx Instructions: 0.5mg oral twice daily and 2mg oral qhs (DME) blood sugar diagnostic Strip See Rx Instructions Not Applicable DAILY Qty: 10 0RF Rx Instructions: As directed (DME) FreeStyle Lite Strips Strip See Rx Instructions .Route Qty: 100 3RF Rx Instructions: once daily (DME) blood-glucose meter Kit See Rx Instructions Not Applicable BID Qty: 1 0RF Rx Instructions: As directed (DME) lancets 28 gauge misc See Rx Instructions topical BID Qty: 100 0RF Rx Instructions: As directed pravastatin 80 mg tablet 80 mg PO DAILY benzonatate 100 mg capsule 100 mg PO Q8H PRN (Reason: cough) fluticasone propionate 110 mcg/actuation HFA aerosol inhaler 2 puff inhalation BID fluoxetine 10 mg capsule 10 mg PO DAILY Qty: 90 3RF Discontinued omeprazole 20 mg capsule,delayed release(DR/EC) 20 mg PO BID@0630,1630 carvedilol 6.25 mg tablet 6.25 mg PO BID Qty: 180 3RF Discharge Orders: Discharge Order (Routine); Ordered 01/24/25 Ordered By: Gilson Yusuf Diet: Advance to usual diet Activity on Discharge: As tolerated Stand Alone Forms: Patient Portal Discharge page Print Language: Cameroonian Care Plan Goals: Follow up with primary care Follow up outpatient Cardiology Follow-up with outpatient pulmonology regarding chronic cough and prior lobectomy Health Concerns: As above Plan of Treatment: Recommend conservative management of costochondritis with utilization of Tylenol, hot and cold packs. Would avoid NSAIDs (ibuprofen, Advil, meloxicam, diclofenac...) Given cardiovascular history. Assessment: Back to clinical baseline. Discharge Date/Time: 01/24/25 12:33
== END 2025-01-24 12:33 | disposition home or self-care (01) ==
LOC: HO.ED 19:52 → HO.EDOVER 20:17
PROVIDERS: Admitting Provider Student in an Organized Health Care Education/Training Program; Emergency Provider Emergency Medicine; PCP Internal Medicine; Visit Provider Hospitalist
DX: I16.0 Hypertensive urgency (principal); R79.89 Other specified abnormal findings of blood chemistry; R07.9 Chest pain, unspecified; I10 Essential (primary) hypertension; I24.9 Acute ischemic heart disease, unspecified; I35.0 Nonrheumatic aortic (valve) stenosis; M94.0 Chondrocostal junction syndrome [Tietze]; F41.9 Anxiety disorder, unspecified; K21.9 Gastro-esophageal reflux disease without esophagitis; E78.2 Mixed hyperlipidemia; E11.9 Type 2 diabetes mellitus without complications; F39 Unspecified mood [affective] disorder; M79.7 Fibromyalgia; R51.9 Headache, unspecified; J45.30 Mild persistent asthma, uncomplicated; Z79.899 Other long term (current) drug therapy; Z85.118 Personal history of other malignant neoplasm of bronchus and lung
CPT/HCPCS: 36415; 71045; 80048; 80053; 82947; 83735; 84484; 85025; 93005; 93306; 96372; 96374; 96376; 99222; 99285; J1650; J3360; Q9957

== ENCOUNTER → 2025-01-23 16:00 | Outpatient (BNV) | payer MEDICARE, OTHER, SELFPAY | PROVIDERS: Emergency Provider Emergency Medicine; PCP Internal Medicine; Visit Provider Radiology Diagnostic Radiology | DX: I10 Essential (primary) hypertension (principal) | CPT/HCPCS: 71045 ==

== ENCOUNTER 2025-01-23 19:54 | Outpatient (BNV) | payer MEDICARE, OTHER, SELFPAY | END 2025-01-24 07:00 | PROVIDERS: Admitting Provider Student in an Organized Health Care Education/Training Program; Emergency Provider Emergency Medicine; PCP Internal Medicine; Visit Provider Internal Medicine Cardiovascular Disease | DX: I42.2 Other hypertrophic cardiomyopathy (principal); I34.81 Nonrheumatic mitral (valve) annulus calcification; I35.0 Nonrheumatic aortic (valve) stenosis; I51.7 Cardiomegaly | CPT/HCPCS: 93306 ==

== ENCOUNTER → 2025-01-23 19:54 | Outpatient (BNV) | payer MEDICARE, OTHER, SELFPAY | PROVIDERS: Admitting Provider Student in an Organized Health Care Education/Training Program; Emergency Provider Emergency Medicine; PCP Internal Medicine; Visit Provider Internal Medicine Cardiovascular Disease | DX: R79.89 Other specified abnormal findings of blood chemistry (principal) | CPT/HCPCS: 93010; 99222 ==

== ENCOUNTER → 2025-01-23 19:54 | Outpatient (BNV) | payer MEDICARE, OTHER, SELFPAY | PROVIDERS: Admitting Provider Student in an Organized Health Care Education/Training Program; Emergency Provider Emergency Medicine; PCP Internal Medicine; Visit Provider Student in an Organized Health Care Education/Training Program | DX: I16.0 Hypertensive urgency (principal); R79.89 Other specified abnormal findings of blood chemistry | CPT/HCPCS: 99222 ==

== ENCOUNTER 2025-01-28 14:24 | Outpatient (AMB) | payer MEDICARE, OTHER, SELFPAY ==
--- OUTSIDE RECORDS SUMMARY | 2023-08-29 11:00 | XMS_ITS ---
Author Organization [facility] Address [address] [place] [address] Care Team Providers Care Paper Rewinder Name Role Phone Sal (RETIRED) Dannie SHIELDS Primary Care Provide Fabrice Vergara [phone] REASON FOR VISIT abdominal pain Encounters Encounter Location Date Provider Diagnosis [facility] [address] [place] [address] 08/29/2023 Fabrice Blanchard Plan Of Treatment No Information Progress Notes * TREY BROWN IDOB:1944 (79 yo F)Acc No.[id number]:08/29/2023 Progress Notes Patient: TREY KOWALSKI I Provider: Tory Blanchard MD :1945 A ge:78 Y S ex:Female Date:08/29/2023 Address:[address] [place] [address] , [id number] Pcp:Dannie Huang (RETIRED )MD Subjective: * Chief [...] 08/29/2023 Generated for Printi ng/Faxing/eTransmitting on: 0 01/28/2025 03:23 PM EDT
--- OUTSIDE RECORDS SUMMARY | 2023-10-27 06:30 | XMS_ITS ---
Author Organization [facility] Address [address] [place] [address] Care Team Providers Care Sheet Sewer Name Role Phone Sal (RETIRED) Dannie SHIELDS Primary Care Provide r Unavailable Fabrice Blanchard Unavailable [phone] REASON FOR VISIT screening,hx polyps,gerd Problems Problem Type SNOMED Code ICD Code Onset Dates Problem Status W/U Status Risk Notes Problem Diverticular disease of colon (232153854) Diverticulosis of large intestine without perforation or abscess without bleeding (K57.30) Active confirmed Problem Gastro-esophagea l reflux disease without esophagitis (552187115) Gastro-esophageal reflux disease without esophagitis (K21.9) Active confirmed Encounters Encounter Location Date Provider Diagnosis [facility] [place] Outpatient 5 [place], [place] [phone] 10/27/2023 Fabrice Blanchard Encounter for scre ening [...] * TREY BROWN IDOB:1944 (79 yo F)Acc No.[id number]:10/27/2023 EGD and COL/MAC Patient: TREY KOWALSKI I Provider: Tory Blanchard MD :1945 A ge:78 Y S ex:Female Date:10/27/2023 Address:[address] [place] [address] , [id number] Pcp:Dannie Huang (RETIRED )MD Subjective: * Chief [...] FLW-UP 10 YRS DOCD, Modifiers: 1P , 34172 UPPR GI ENDOSCOPY, DIAGNOSIS * * The named appointment provid er may or may not be the originator of this progress note, and it is not deemed complete until electronically signed by the appointment provider. Sign off status: Pending * Provider: Tory Blanchard MD Date: 0 10/27/2023 Generated for Bryan lee/Emily/Reneaitting on: 0 01/28/2025 03:23 PM EDT
--- OUTSIDE RECORDS SUMMARY | 2023-12-01 06:30 | XMS_ITS ---
Author Organization Fabrice Crain III, MD Address [address] [place] [place] [address] Care Team Providers Care Glue Drier Operator Name Role Phone Dannie Huang MD Primary Care Provider Fabrice Butcher Unavailable [phone] Allergies Allergen (clinical drug ingredient) Drug/Non Drug [...] Benzonatate 100 MG TAKE 1 CAPSULE BY [facility] EVERY 8 HOURS NEEDED FOR COUGH Oral Active Albuterol Sulfate HFA 108 (90 Base) MCG/ACT 1 puff as needed Inhalation every 4 hrs Active Zoryve 0.3 % 1 application Jack Spinner ally Once a day Active LORazepam 1 [...] Problem Status W/U Status Risk Notes Problem [id number] Other obesity (E66.8) Active confirmed Her body [...] Date Provider Diagnosis Fabrice Crain III, MD [address] [place] [address] [place] [address] 12/01/2023 Fabrice Crain Malignant neoplasm o f [...] Benzonatate 100 MG TAKE 1 CAPSULE BY [facility] EVERY 8 HOURS NEEDED FOR COUGH Oral Albuterol Sulfate HFA 108 (9 0 Base) MCG/ACT 1 puff as needed Inhalation every 4 hrs Zoryve 0.3 % 1 application Jack Spinner ally Once a day LORazepam 1 MG [...] OV Provider Name:Fabrice Crain, 04/11/2025 10:00:00 AM, [address] [place] [address] STEFANY BROWN, [place], [address], Progress Notes * JUVENTINO CANDELARIO:[birth year] (78 yo F)Acc No.[id number]:12/01/2023 Progress Notes Patient: TREY KOWALSKI Provider: Tory Crain MD :1945 A ge:78 Y S ex:Female Date:12/01/2023 Address:[address] [place], [place] [address] [place], [id number] Pcp:Dannie Huang MD Subjective: * Chief Complaints: [...] mg/dL) 52 (Ref Range: mg/dL) * Lab:Comprehensive [place]. Pane l Fast * Order Date 11/13/2023 [...] 12/01/2023 Generated for Bryan lee/Faxing/eTransmitting on: 0 01/28/2025 03:23 PM EDT History and Physical Notes * HPI (History of Present Illness) Category Sub-Category Detail Notes COVID-19 Screening Questions Have you had any new onset fever, chills, cough, congestion, sore throat, shortness of breath, muscle aches?: No Have you been exposed to the virus withi n the last 10 days?: No Have you travelled internationally in [facility] last 10 days?: No Have you [...]
--- OUTSIDE RECORDS SUMMARY | 2024-04-05 07:00 | XMS_ITS ---
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 Vital Signs Temperature 97.4 degrees Fahrenheit 04/05/20 24 Blood pressure systolic 138 mm Hg 04/05/20 24 Blood pressure diastolic 77 mm Hg 024 Heart Rate 79 /min 04/05/2024 Height 60 in 04/05/2024 Weight 161 lbs 04/05/2024 BMI 31.44 kg/m2 04/05/2024 Encounters Encounter Location Date Provider Diagnosis Fabrice Crain III, MD [address] [place] [address] [place] [address] 04/05/2024 Fabrice Crain Malignant neoplasm o f [...] a day Zoryve 0.3 % 1 application School Age Program Teacher ally Once a day Benzonatate 100 MG TAKE 1 CAPSULE BY [facility] EVERY 8 HOURS NEEDED FOR COUGH [...] check-up Provider Name:Fabrice Crain, 04/11/2025 10:00:00 AM, [address] [place] [address], [phone], Progress Notes * GEMMA CANDELARIOB:[birth year] (79 yo F)Acc No.[id number]:04/05/2024 Progress Notes Patient: TREY KOWALSKI Provider: Tory Crain MD :1945 A ge:79 Y S ex:Female Date:04/05/2024 Address:[address] [place], [place] [address] [id number] Pcp:Dannie Huang MD Subjective: * Chief Complaints: [...] 06/05/2023 Generated for Printi ng/Emily/eTransmitting on: 0 01/28/2025 03:24 PM EDT History and Physical Notes * HPI (History of Present Illness) Category Sub-Category Detail Notes COVID-19 Screening Questions Have you had any new onset fever, chills, cough, congestion, sore throat, shortness of breath, muscle aches?: No Have you been exposed to the virus withi n the last 10 days?: No Have you travelled internationally in [facility] last 10 days?: No Have you been [...]
--- OUTSIDE RECORDS SUMMARY | 2024-09-26 11:45 | XMS_ITS ---
Author Organization [facility] Address [address] [place] [address] Care Team Providers Care Store Team Member Name Role Phone OmarJessica castroah Primary Care Provider Malik Albert Unavailable [phone] Radha Weir Unavailable [phone] Allergies Allergen (clinical drug ingredient) Drug/Non Drug [...] Active Encounters Encounter Location Date Provider Diagnosis [facility] [address] [address] 09/26/2024 Radha Weir Plan Of Treatment Next Appt Details Provider Name:Malik Clements , 05/09/2025 11:45:00 AM, [address] [place] [address], [phone], Progress Notes * Ahsan CANDELARIOB:[birth year] (79 yo F)Acc No.[id number]:09/26/2024 Progress Note Patient: Julienne KOWALSKI Provider: Mikel Weir DPM :1945 A ge:79 Y S ex:Female Date:09/26/2024 Address:[address] [place], [place] [id number] Pcp:Karin Nelson Subjective: * Chief Complaints: * [...] 0 09/26/2024 Generated for Bryan lee/Emily/Reneaitting on: 01/28/2025 03:23 PM EDT
--- OUTSIDE RECORDS SUMMARY | 2024-10-04 07:00 | XMS_ITS ---
Author Organization Fabrice Crain III, MD Address [address] [place] [address] Care Team Providers Care Inventory Control Associate Name Role Phone Dannie Huang MD Primary Care Provider Fabrice Butcher Unavailable [phone] Allergies Allergen (clinical drug ingredient) Drug/Non Drug [...] Benzonatate 100 MG TAKE 1 CAPSULE BY [facility] EVERY 8 HOURS NEEDED FOR [...] day Active Zoryve 0.3 % 1 application Therapeutic Massage Technician ally Once a day Active Social History [...] Problem Status W/U Status Risk Notes Problem [id number] Malignant neoplasm of lower lobe of left [...] Provider Diagnosis Fabrice Crain III, MD [address] [place] [address] [place] [address] 10/04/2024 Fabrice Crain Malignant neoplasm o f [...] Benzonatate 100 MG TAKE 1 CAPSULE BY [facility] EVERY 8 HOURS NEEDED FOR [...] a day Zoryve 0.3 % 1 application Therapeutic Massage Technician ally Once a day Next Appt Details Follow Up: 6 Months, Reason: ov Provider Name:Fabrice Brandtrne, 04/11/2025 10:00:00 AM, [address] [place] [address] [address]OWN, [place], [address], Progress Notes * JUVENTINO CANDELARIO:[birth year] (79 yo F)Acc No.[id number]:10/04/2024 Progress Notes Patient: TREY KOWALSKI Provider: Tory Crain MD :1945 A ge:79 Y S ex:Female Date:10/04/2024 Address:[address] [place], [place] [phone] Pcp:Dannie Huang MD Subjective: * Chief Complaints: [...] June and moved innto an apartment in [place] near her workplace. On October 08, 2024. Her thoracic surgeon, Dr. Cheng, has ordered a CT scan of her chest for surveillance purposes. She has a new primary care physician, Dr. Fuentes, at [facility], who has put her on sertraline [...] 10/04/2024 Generated for Bryan lee/Emily/Reneaitting on: 0 01/28/2025 03:24 PM EDT History [...]
--- OUTSIDE RECORDS SUMMARY | 2025-01-25 23:59 | XMS_ITS | Continuity of Care Document ---
Author Organization [facility] Address [address] [place] [id number] Care Team Providers Care Logistics Analyst Name Role Phone Gina SHIELDS, Karin Angel Primary Care Physician Encounter [facility] [place] Date(s): 12/26/24 - 01/25/25 [facility] [address] [place] [id number] Encounter Type: Triage Allergies, Adverse Reactions, Alerts [...] Maintenance, 12/26/24 8:30:00 AM EDT, [id number], 90, SPRAY 2 SPRAYS INTO EACH NOSTRIL DAILY NEEDED FOR ALLERGIES, 162.56, cm, 12/18/24 8:38:00 EDT, Height Start Date: 12/26/24 Status: Ordered Quantity: 90.0 Unit: Unknown Repeat number: 1 benzonatate 100 mg oral capsule 1 capsule = 100 mg, By Mouth, 3 times a day, PRN as needed for cough, # 90 capsule, 1 Refills, Maintenance, 12/30/24 5:21:00 PM EDT, Capsule, [id number], Partial fill upon patient request if [...] Refills, Maintenance, 09/09/24 3:10:00 PM EDT, Aerosol, [facility]/pharmacy #[id number], Partial fill upon patient request if [...] 1 Refills, Maintenance, 11/30/22 11:08:00 AM EDT, [id number], 30, SPRAY 2 SPRAYS INTO BOTH NOSTRILS [...] 11 Refills, Maintenance, 08/20/24 3:03:00 PM EDT, [facility]/pharmacy #[id number], Partial fill upon patient request if the prescription isfor a schedule II opioid drug., 2 puffs Inhalation 6 times a day,x90 days,PRN:as needed for wheezing, 162.56, cm, 08/20/24 14:18:00 EDT, Height Start Date: 08/20/24 Stop Date: 08/05/27 Status: Ordered Quantity: 8.5 Unit: g Repeat number: 12 Social History Social History Type Response Smoking Status Former smoker, quit more than 30 days ago entered on: 10/02/23 Sex Sex Representation Female (finding) Patient Care team information Care Team Personnel Name: Gina SHIELDS, Karin Angel Position: Reference Physician Member Role: PCP Address: [address] [place] [id number]: Care Team Related Persons Name: AMBREEN BROWN Name: RUBENS SILVA Insurance Providers Guarantor name: TREY BROWN Health Plan Information #: 1 Payer: MEDICARE B Payer Identifier: [employer] Member Number: [id number] Group Number: [id number] Subscriber Identifier: [id number] Relationship to Subscriber: self Coverage Type: NA Coverage Verification Date: NA Telecom: NA Address: Health Plan Information #: 2 Payer: [employer] Payer Identifier: [employer]ES Member Number: [id number] Group Number: [id number] Subscriber Identifier: [id number] Relationship to Subscriber: self Coverage Type: Medicare Other Coverage Verification Date: Telecom: Address:
--- OUTSIDE RECORDS SUMMARY | 2025-01-25 23:59 | XMS_ITS | Continuity of Care Document ---
Author Organization [facility] Address [address] [place] [address]- Care Team Providers Care Planetarium Sky Show Technician Name Role Phone Gina SHIELDS, Karin Angel Primary Care Physician [phone] Encounter [facility] Date(s): 12/26/24 - 01/25/25 [facility] [address] [place] [address]- Encounter Type: Triage Allergies, Adverse Reactions, Alerts [...] Maintenance, 12/26/24 8:30:00 AM EDT, [facility], 90, SPRAY 2 SPRAYS INTO EACH NOSTRIL [...] Refills, Maintenance, 09/09/24 3:10:00 PM EDT, Aerosol, [facility]/pharmacy #[id number], Partial fill upon patient request [...] 1 Refills, Maintenance, 11/30/22 11:08:00 AM EDT, [facility], 30, SPRAY 2 SPRAYS INTO BOTH NOSTRILS [...] 11 Refills, Maintenance, 08/20/24 3:03:00 PM EDT, [facility]/pharmacy #[id number], Partial fill upon patient request [...] Position: Reference Physician Member Role: PCP Address: [address] [place] [id number] Telecom: Care Team Related Persons Name: AMBREEN BROWN Name: RUBENS SILVA Insurance Providers Guarantor name: TREY BROWN Health Plan Information #: 1 Payer: MEDICARE B Payer Identifier: MOSES Member Number: [id number] Group Number: NA Subscriber Identifier: [id number] Relationship to Subscriber: self Coverage Type: NA Coverage Verification Date: NA Telecom: NA Address: Health Plan Information #: 2 Payer: [employer] Payer Identifier: MOSES Member Number: [id number] Group Number: [id number] Subscriber Identifier: [id number] Relationship to Subscriber: self Coverage Type: Medicare Other Coverage Verification Date: Telecom: Address:
[2025-01-28 14:59] VITALS: BP 160/100; PULSE 79; BMI 27.2
--- NOTE | 2025-01-28 14:59 | A.OFFVIS_ITS ---
Vital Signs 01/28/25 14:59 01/28/25 15:20 Height 5 ft 4 in Weight 158 lb 11.725 oz BMI 27.2 BP 160/100 H 148/90 H Blood Pressure Location Lt brachial Lt brachial Position Sitting Sitting Pulse 79 Intake Visit Reasons: f/u per NS Supervisor Painting Required: No Insurance Claims Examiner: Insurance Claims Examiner Present Allergies niacin (Niacin) Allergy (Mild, Verified 01/23/25 15:38) RASH lactose (Lactose) Adverse Reaction (Mild, Verified 01/23/25 15:38) DIARRHEA atorvastatin (Lipitor) Adverse Reaction (Unknown, Verified 01/23/25 15:38) Unknown celecoxib (Celebrex) Adverse Reaction (Unknown, Verified 01/23/25 15:38) Unknown simvastatin Adverse Reaction (Unknown, Verified 01/23/25 15:38) Unknown HPI Comments Details: This is a 79-year-old female patient coming in for a hospital discharge, accompanied by her son. Patient with history of significant anxiety, hypertension, mixed hyperlipidemia, diabetes, and wybd-he-ieufagop aortic stenosis who has been seen in the office for chest discomfort who is myocardial perfusion study was negative but given her ongoing symptoms, patient underwent a coronary CTA. However patient had recently visited with the hospital for elevated blood pressures with a systolic blood pressure over 200. Patient's blood pressure improved with metoprolol however for reports of chest discomfort, patient received nitroglycerin which did not help. Today, patient reports feeling very anxious overall about all of her testing. Patient states that her fluoxetine was discontinued and was recently started on sertraline. Patient does believe that her anxiety is not under control and is contributing to her elevated blood pressures. Patient is also reporting a chronic cough which she gets at nighttime and does not allow her to sleep well. Patient is otherwise reporting compliance with all her medications. [facility] Medical History (Updated 01/28/25 @ 17:02 by Asaf Mcleod NP) Peptic ulcer Lung cancer Psoriasis Type 2 diabetes mellitus GERD (gastroesophageal reflux disease) Osteopenia Pulmonary nodule Depression Fibromyalgia IBS (irritable bowel syndrome) High cholesterol HTN (hypertension) Chronic cough Allergic rhinitis Cough due to bronchospasm Surgical History Hx of bladder repair surgery S/P lobectomy of lung History of tubal ligation History of esophagogastroduodenoscopy (EGD) History of laparoscopic cholecystectomy History of colonoscopy (~05/24/24) Family History Father Myocardial infarction Mother Diabetic coma Sister No problems noted. 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 Cognitive needs: No Hearing needs: No Vision needs: Yes (Rx glasses) Review of Systems ENT Reports dizziness Card Denies chest pain, Denies chest pain at rest, Denies chest pain with activity, Denies rapid heart rate, Denies pedal edema, Denies edema, Denies leg edema, Denies lightheadedness, Denies palpitations, Denies dyspnea, Denies dyspnea on exertion and Denies orthopnea Resp Denies cough, Denies dyspnea and Denies dyspnea on exertion GI Denies hematochezia and Denies change in stool character Musc Denies abnormal gait, Reports limited range of motion, Reports muscle cramps, Denies muscle weakness, Denies numbness, Denies radiating pain into limb, Denies stiffness and Denies tingling Neuro Denies abnormal gait, Reports dizziness, Denies numbness and Denies tingling Endo Denies palpitations Physical Exam Vital Signs: Last Vital Signs Pulse 79 01/28/25 14:59 BP 160/100 H 01/28/25 14:59 BMI result Body Mass Index 27.2 Const General: cooperative, healthy appearing, comfortable and no acute distress Orientation/consciousness: patient oriented x3 HEENT Head: Yes normal to inspection Neck Neck: Yes normal visual inspection, Yes trachea midline and Yes supple Chest Chest palpation & inspection: normal inspection of the chest Resp Effort & Inspection: normal respiratory effort Auscultation: clear to auscultation bilaterally, no crackles, no rales, no rhonchi and no wheezes Cardio Jugular venous distension: no JVD Palpation: normal PMI Rate: regular rate Rhythm: regular rhythm Heart sounds: S1 normal heart sound present, S2 normal heart sound present, no click, no gallops, no murmurs and no rubs Peripheral pulses: Peripheral pulses 2+ throughout GI Inspection: Yes normal to inspection Palpation (GI): Soft to palpation Auscultation: normal bowel sounds Skin General skin exam: no rashes or lesions noted Neuro General: patient oriented x3 Extrem General: Yes normal to inspection, No no pedal edema and No calf tenderness Psych Appearance: grossly normal Mental Status: mental status grossly normal Speech and movement: Normal speech and movement present Assessment & Plan Assessment & Plan (1) HTN (hypertension): Code(s): I10 - Essential (primary) hypertension Category: Medical Plan: Today, patient's initial blood pressures was very elevated however after exam, patient's blood pressure was repeated and it improved significantly from systolic 166-148. Continue current regimen of carvedilol 6.25 mg b.i.d. and hydralazine 25 mg b.i.d.. Patient has elevated blood pressures most likely due to her anxiety to which both the patient and the son agrees. Patient states that she has a an upcoming appointment with PCP tomorrow and is planning to address this. Patient recently started sertraline therapy and could most likely need up titration. Emphasized on the need for stress medication strategies. We plan to meet again in a month. Advised to monitor blood pressures at home with a goal less than 130/80. Patient will maintain a log and bring to her next visit. (2) Chest pain: Code(s): R07.9 - Chest pain, unspecified Category: Medical Plan: 11/08/2024-patient underwent a myocardial perfusion study which showed normal perfusion however for the stress portion of the test, patient had some ST- depression inferiorly and anterolaterally. 01/23/2025-patient underwent coronary CTA that showed no significant coronary artery disease, with small eccentric calcified plaque in the distal left main with less than 25% stenosis and into the proximal LAD with approximately 25% stenosis, and minimal noncalcified ostial stenosis versus artifact. Most recent LDL at 82. Continue statin therapy. (3) Coronary artery calcification: Code(s): I25.10 - Atherosclerotic heart disease of [place] coronary artery without angina pectoris Plan: As above. (4) Non-rheumatic aortic stenosis: Code(s): I35.0 - Nonrheumatic aortic (valve) stenosis Category: Medical Plan: 03/15/2024-echo study showed a normal LV systolic function with an ejection fraction between 65-70% with impaired relaxation filling pattern with mild LVH, mild aortic stenosis, and upper limits of normal aortic size. Clinically stable and euvolemic. We will repeat echo in a year. (5) Hospital discharge follow-up: Code(s): Z09 - Encounter for follow-up examination after completed treatment for conditions other than malignant neoplasm Plan: As above. Advised heart healthy diet, regular exercise, stress medication strategies, and med compliance. This note was generated using voice recognition software. While every effort has been made to ensure accuracy and proper service crew supervisor, there may be occasional errors that could affect the content or meaning of the described symptoms. Coding Level of Care Code Est Pt Level 4 (57857) Complex EM visit Add On G2211 Diagnoses HTN (hypertension) I10 Chest pain R07.9 Coronary artery calcification I25.10 Non-rheumatic aortic stenosis I35.0 Hospital discharge follow-up Z09 Time Spent (min) 32 Comment Time spent in reviewing the chart, test results, assessment, counseling and documentation.
[2025-01-28 15:20] VITALS: BP 148/90
--- OUTSIDE RECORDS SUMMARY | 2025-01-28 15:23 | XMS_ITS | Patient Health Record ---
Author Organization [facility] Address [address] [place] [address] Care Team Providers Care Lvn Lpn Name Role Phone Sal (RETIRED) Dannie SHIELDS Primary Care Provide r Unavailable Fabrice Blanchard Unavailable [phone] Allergies Allergen (clinical drug ingredient) Drug/Non Drug Allergy documented on EMR Reaction Allergy Type Onset Date Status lactose Lactose (Intolerance) Unknown Drug Allergy Active niacin Niacin rash Drug Allergy Active cortizone injections (uncoded) elevated bs and bp Allergy Active Reason For Referral No Information Medications Medication [...] Problem Gastro-esophage al reflux disease without esophagitis (416889700) Gastro-esophageal reflux disease without esophagitis (K21.9) Active confirmed Problem 491551570 Encounter for screening for malignant neoplasm of colon (Z12.11) Active confirmed Problem 603338808 History of adenomatous polyp of colon (Z86.010) Active confirmed Problem Diverticular disease of colon (408451101) Diverticulosis of large intestine without perforation or abscess without bleeding (K57.30) Active confirmed Problem 646787907 Generalized abdominal pain (R10.84) Active confirmed Problem 604327413 Gastroesophageal reflux disease, esophagitis presence not specified (K21.9) Active confirmed Problem 47106010 Irritable bowel syndrome with both constipation and diarrhea (K58.2) Active confirmed Problem Chronic cough (71058165) Chronic cough (R05.3) Active confirmed Plan Of Treatment Pending Test Test Name Order Date AMYLASE 09/27/2016 LIPASE 09/27/2016 CBC w DIFF 09/27/2016 Future Test Test Name Order Date COLONOSCOPY 06/13/2013 COLONOSCOPY 08/16/2018 UPPER GI ENDOSCOPY 08/01/2023 COLONOSCOPY 08/01/2023 Insurance Providers Payer Name Payer Address Payer Phone Subscriber Number Group Number Insured Name Patient Relationship to Insured Coverage Start Date Coverage End Date MEDICARE OF [place] [address] [place] [address] [id number] TREY TEE Self - patient is the insured [facility] [address] [place] [phone] [id number] TREY TEE Self - patient is the [...] LLL lung resection for cancer-Dr. Shaffer at [facility] 04/07/2023
--- OUTSIDE RECORDS SUMMARY | 2025-01-28 15:23 | XMS_ITS | Patient Health Record ---
Author Organization Fabrice Crain III, MD Address [address] [place] [address] Care Team Providers Care Beam Carrier Hauler Pusher Name Role Phone Dannie Huang MD Primary Care Provider Fabrice Butcher Unavailable [phone] Allergies Allergen (clinical drug ingredient) Drug/Non Drug Allergy documented on EMR Reaction Allergy Type Onset Date Status cortisone Cortisone elevated BP and Glucose Drug Allergy Active niacin Niacin Unknown Drug Allergy Active Lactose Unknown Drug Allergy Active Reason For Referral No Information [...] day Active Zoryve 0.3 % 1 application [employer] Building ally Once a day Active Benzonatate 100 [...] Problem Status W/U Status Risk Notes Problem 0136489 Former smoker (Z87.891) Active confirmed She seems highly motivated not to smoke and we discussed strategies for prevention of relapse in times of stress and illness. Problem 653567881 Fibromyalgia (M79.7) Active confirmed She has occasional low-grade abdominal discomfort. Problem 891208044904 Type 2 diabetes mellitus with other specified complication (E11.69) Active confirmed She will continue on current therapy. Her fasting glucose levels have been under 150. She has been compliant with her medication. Problem 337410923 Other obesity (E66.8) Active confirmed Her body mass index is 30. We have discussed her weight loss strategy. We discussed diet and nutrition. We made a plan to lose weight at a rate of one half of a pound per week. Problem 57447805 Hyperlipidemia, unspecified (E78.5) Active confirmed Her lipids are well controlled and she will continue on her current regimen. Problem 44768248 Age-related osteoporosis without current pathological fracture (M81.0) Active confirmed She is asymptomatic at this time. Problem 37105160 Essential hypertension (I10) Active confirmed Her blood pressure is controlled and no change in her regimen as necessary. Problem 864932808 Gastroesophageal reflux disease without esophagitis (K21.9) Active confirmed She has occasional reflux, well-controll ed medication and no other therapy is necessary at this time. Problem Anemia, unspecified type (D64.9) Active confirmed She has a mild microcytic anemia with a ferritin over 100. The microcytosis is new. She'll be followed carefully. It does not require treatment at this time. Problem 224872193 Malignant neopla sm of lower lobe of left lung (C34.32) Active confirmed There is no sign of recurrent disease at this time. Incisions are healed and the pain is slowly resolving. She has been scheduled for a followup CT scan of the chest by her thoracic surgeon next month. 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 Vital Signs Heart Rate 76 /min 10/04/2024 Temperature 98.1 degrees Fahrenheit 10/04/2024 Blood pressure diastolic 78 mm Hg 10/04/2024 Height 60 in 10/04/2024 Blood pressure systolic 140 mm Hg 10/04/2024 Weight 157 lbs 10/04/2024 BMI 30.66 kg/m2 10/04/2024 Encounters Encounter Location Date Provider Diagnosis Fabrice Crain III, MD [address] [place] [address] [place] [address] 04/05/2024 Fabrice Crain Malignant neoplasm o f lower lobe of left lung C34.32 ; Former smoker Z87.891 ; Gastroesophageal reflux disease without esophagitis K21.9 ; Essential hypertension I10 ; Type 2 diabetes mellitus with other specified complication E11.69 ; Hyperlipidemia, unspecified E78.5 and Age-related osteoporosis without current pathological fracture M81.0 Fabrice Crain III, MD [address] [place] [address] [place] [address] 10/04/2024 Fabrice Crain Malignant neoplasm o f [...] Treat ment Notes Treatment Clinical Notes 04/05/2024 Former smoker (ICD-1 0 - Z87.891) She seems highly motivated not to smoke and we discussed strategies for prevention of relapse in times of stress and illness. 04/05/2024 Malignant neoplasm o f lower lobe of left lung (ICD-10 - C34.32) There is no sign of recurrent disease at this time. Incisions are healed and the pain is slowly resolving 10/04/2024 Essential hypertensi on (ICD-10 - I10) Her blood pressure is controlled and no change in her regimen as necessary. 10/04/2024 Malignant neoplasm o f lower lobe of left lung (ICD-10 - C34.32) There is no sign of recurrent disease at this time. Incisions are healed and the pain is slowly resolving. She has been scheduled for a followup CT scan of the chest by her thoracic surgeon next month. 04/05/2024 Gastroesophageal reflux disease without esophagitis (ICD-10 - K21.9) She has occasional reflux, well-controlled medication and no other therapy is necessary at this time. 10/04/2024 Fibromyalgia (ICD-10 - M79.7) She has occasional low-grade abdominal discomfort. 04/05/2024 Essential hypertensi on (ICD-10 - I10) Her blood pressure is controlled and no change in her regimen as necessary. 10/04/2024 Type 2 diabetes mellitus with other specified complication (ICD-10 - E11.69) She will continue on current therapy. Her fasting glucose levels have been under 150. She has been compliant with her medication. 04/05/2024 Type 2 diabetes mellitus with other specified complication (ICD-10 - E11.69) She will continue on current therapy. Her fasting glucose levels have been under 150. She has been compliant with her medication. 10/04/2024 Hyperlipidemia, unspecified (ICD-10 - E78.5) Her lipids are well controlled and she will continue on her current regimen. 04/05/2024 Hyperlipidemia, unspecified (ICD-10 - E78.5) Her lipids are well controlled and she will continue on her current regimen. 10/04/2024 Age-related osteoporosis without current pathological fracture (ICD-10 - M81.0) She is asymptomatic at this time. 04/05/2024 Age-related osteoporosis without current pathological fracture (ICD-10 - M81.0) She is asymptomatic at this time. 10/04/2024 Former smoker (ICD-1 0 - Z87.891) She seems highly motivated not to smoke and we discussed strategies for prevention of relapse in times of stress and illness. 10/04/2024 Other obesity (ICD-1 0 - E66.8) Her [...] ) 09/20/2017 FERRITIN 11/29/2022 CBC w DIFF 09/20/2017 CBC w DIFF 02/03/2022 CBC w DIFF 01/29/2021 CBC w DIFF 08/02/2019 CBC w DIFF 06/23/2017 CBC w DIFF 11/29/2022 CBC w DIFF 01/31/2020 CBC w DIFF 08/05/2021 CBC w DIFF 07/31/2020 CBC with MANUAL DIFFERENTIAL 01/25/2019 CBC with MANUAL DIFFERENTIAL 01/23/2018 CBC with MANUAL DIFFERENTIAL 07/27/2018 PLATELET COUNT 06/23/2017 SED RATE (ESR) 01/29/2021 SED RATE (ESR) 11/29/2022 RETICULOCYTE COUNT,CORRECTED 11/29/2022 CT CHEST W&WO CONTRAST 07/28/2023 CBC WITH AUTO DIFF 07/28/2023 T SPOT TB 11/29/2022 Lipid Panel 07/28/2023 CT chest w con 10/11/2023 Next Appt Details Provider Name:Fabrice Brandtrne, 04/11/2025 10:00:00 AM, [address] [place] [address] [address] [facility] [place], [place], [address], Insurance Providers Payer Name Payer Address Payer Phone Subscriber Number Group Number Insured Name Patient Relationship to Insured Coverage Start Date Coverage End Date MEDICARE NGS [address] [place] [phone] [id number] TREY TEE Self - patient is the insured [address] [facility] [phone] [id number] GIANNATREY Fairchild Self - patient is the [...]
--- OUTSIDE RECORDS SUMMARY | 2025-01-28 15:24 | XMS_ITS | Patient Health Record ---
[facility] Address [address] [place] [address] Care Team Providers Care Foreclosure Clerk Name Role Phone OmarKarin castro Primary Care Provider UnavailMalik Cain Unavailable [phone] Param Syed Unavailable [phone] Radha Weir Unavailable [phone] Allergies Allergen (clinical drug ingredient) Drug/Non Drug Allergy documented on EMR Reaction Allergy Type Onset Date Status niacin Niacin rash Drug Allergy Active Cortisone elevated BP/ elevated BS Drug Allergy Active Results Component Value Reference Range Notes HEMOGLOBIN A1C (GLYCOHEMOGLO BIN) Reviewed date:06/03/2024 08:53:42 AM Interpretation: Performing Lab: Notes/Report: TOTAL HEMOGLOBIN (HGBA1C) 6.3 HEMOGLOBIN A1C (GLYCOHEMOGLO BIN) Reviewed date:10/08/2024 11:29:26 AM Interpretation: Performing Lab: Notes/Report: HEMOGLOBIN A1C % (HH) 6.3 Reason For Referral No Information Medications Medication SIG (Take, Route, Frequency, Duration) Notes Start Date End Date Status Antibiotic 7 day Not-Takin g Kecia Active Valsartan Not-Taking Tylenol 2 every 8 hour Active Losartan Potassium 25 MG Orally Not-Taking Rhinocort Allergy 32 MCG/ACT 1 spray in each nostril Nasally Once a day Not-Taking Tussin Active Montelukast Sodium N ot-Taking Claritin Not-Taking Famotidine Not-Takin g Delsym Not-Taking prednisoLONE Not-Russell ing ZyrTEC Not-Taking Clobetasol Emul Foam w/MoistCr Not-Taking Calcium Not-Taking Lisinopril Not-Takin g Hyoscyamine Sulfate 25mg 2x a day Active Extra Depth Orthopedic Shoes (1 Pair) with Customized Heat Molded Multidensity Innersoles (3 Pair) as directed Dx: NIDDM/Polyneuropathy (E11.42), Hammertoe Foot Deformity (M20.41,M20.42), Preulcerative Skin Lesion(s) (L85.1 10/08/2024 Active Advair HFA Active Mylanta Not-Taking Carvedilol 6.25 MG 1 tablet with food Orally Twice a day Active Gabapentin Not-Takin g Multivitamin Active PriLOSEC 20 MG Orally 2 Not-T aking Benzonatate 100 MG 1 capsule as needed Orally Three times a day Active Tums Not-Taking Omeprazole 10 MG 1 capsule Orally twice a day Active Vitamin D Not-Taking Pravastatin Sodium A ctive vitamin Not-Taking LORazepam 1mg 1 during the day 1/2 at night Active Albuterol Sulfate HFA PRN Active Zantac bid Not-Taking Azelastine-Fluticaso ne PRN Active Immunizations Vaccine Route Administration Date Status Comme nts COVID-19 [employer] Unknown 06/26/2020 Administered 1st 09/09/2020 Booster P-zer 06/26/2021 Influenza Unknown 05/19/2017 Administered Influenza Unknown 03/05/2018 Administered Influenza Unknown 04/11/2019 Administered Influenza Unknown 03/05/2020 Administered Influenza Unknown 03/07/2022 Administered Influenza Unknown 03/05/2024 Administered Pneumococcal Unknown 08/17/2017 Refused Social History Tobacco Use: Social History Observation Description Date Details (start date - stop date) Never Smoker NA - NA Tobacco use other than smoking: Question Answer Notes Are you an other tobacco user? No Tobacco Control (Standard) Question Answer Notes Tobacco use: Nonsmoker Additional Findings: Tobacco non-user Current no nsmoker AUDIT-C (Standard) Question Answer Notes Did you have a drink containing alcohol in the p ast year? No Points 0 Interpretation Negative Problems Problem Type SNOMED Code ICD Code Onset Dates Problem Status W/U Status Risk Notes Problem Acquired hammer toe of right foot (1669909465515562 ) Other hammer toe(s) (acquired), right foot (M20.41) Active confirmed Problem Acquired hammer toe of left foot (1966522582557461 ) Other hammer toe(s) (acquired), left foot (M20.42) Active confirmed Problem Polyneuropathy due to type 2 diabetes mellitus (353587341) Type 2 diabetes mellitus with diabetic polyneuropathy (E11.42) Active confirmed Vital Signs Blood pressure diastolic 65 mm Hg 01/10/2025 Height 5 ft 4 in in 01/10/2025 Blood pressure systolic 120 mm Hg 01/10/2025 Weight 157 lbs 01/10/2025 BMI 26.95 kg/m2 01/10/2025 Procedures Procedure Date Ordered Date Performed Result Body Sit e 34580-ZHTNJXI NAIL, 6 OR MORE 06/03/2024 N/A 79943-CHHD SKIN LESIONS, OVER 4 06/03/2024 N/A 93964-BXZUGSC NAIL, 6 OR MORE 10/08/2024 N/A 43563-VJSF SKIN LESIONS, OVER 4 10/08/2024 N/A 80921-MVAYESR NAIL, 6 OR MORE 01/10/2025 N/A 36512-ZQQW SKIN LESIONS, OVER 4 01/10/2025 N/A Encounters Encounter Location Date Provider Diagnosis [address] [address] 02/22/2024 Param Syed Tinea unguium B35.1 ; Type 2 diabetes mellitus with diabetic polyneuropathy E11.42 ; Pain in right toe(s) M79.674 ; Pain in left toe(s) M79.675 ; Hallux valgus (acquired), left foot M20.12 ; Hallux valgus (acquired), right foot M20.11 ; Ingrowing nail L60.0 ; Primary osteoarthritis, left ankle and foot M19.072 and Metatarsalgia, right foot M77.[address] [address] 06/03/2024 Radha Weir Type 2 diabetes mellitus with diabetic polyneuropathy E11.42 and Tinea unguium B35.[address] [address] 10/08/2024 Malik Clements Type 2 diabetes mellitus with diabetic polyneuropathy E11.42 ; Tinea unguium B35.1 ; Other hammer toe(s) (acquired), right foot M20.41 and Other hammer toe(s) (acquired), left foot M20.42 [facility] [address] [address] 01/10/2025 Malik Clements Type 2 diabetes mellitus with diabetic polyneuropathy E11.42 and Tinea unguium B35.[address] [address] 09/24/2024 Radha Weir Assessments Encounter Date Diagnosis (ICD Code) Assessment Notes Treatment Notes Treatment Clinical Notes Section Notes 02/22/2024 Tinea unguium (ICD-10 - B35.1) 06/03/2024 Type 2 diabetes mellitus with diabetic polyneuropathy (ICD-10 - E11.42) 06/03/2024 Tinea unguium (ICD-10 - B35.1) 10/08/2024 Type 2 diabetes mellitus with diabetic polyneuropathy (ICD-10 - E11.42) 10/08/2024 Tinea unguium (ICD-10 - B35.1) 01/10/2025 Type 2 diabetes mellitus with diabetic polyneuropathy (ICD-10 - E11.42) 01/10/2025 Tinea unguium (ICD-10 - B35.1) 02/22/2024 Type 2 diabetes mellitus with diabetic polyneuropathy (ICD-10 - E11.42) 10/08/2024 Other hammer toe(s) (acquired), right foot (ICD-10 - M20.41) Patient Educated with: DIABETIC FOOT CARE INSTRUCTIONS. pdf (DIABETIC FOOT CARE INSTRUCTIONS. pdf) 02/22/2024 Pain in right toe(s) (ICD-10 - M79.674) 02/22/2024 Pain in left toe(s) (ICD-10 - M79.675) 10/08/2024 Other hammer toe(s) (acquired), left foot (ICD-10 - M20.42) 02/22/2024 Hallux valgus (acquired), left foot (ICD-10 - M20.12) 02/22/2024 Hallux valgus (acquired), right foot (ICD-10 - M20.11) 02/22/2024 Ingrowing nail (ICD-10 - L60.0) 02/22/2024 Primary osteoarthritis, left ankle and foot (ICD-10 - M19.072) 02/22/2024 Metatarsalgia, right foot (ICD-10 - M77.41) Plan Of Treatment Pending Test Test Name Order Date X ray : Ankle, left 3V 11/15/2018 24052-APJVLPU NAIL, 6 OR MORE 05/17/2018 08316-HIMAFGN NAIL, 6 OR MORE 06/03/2024 92569-FIIVUKS NAIL, 6 OR MORE 10/08/2024 02072-DHFUFKI NAIL, 6 OR MORE 01/10/2025 09495-SSYPBZT NAIL, 6 OR MORE 02/23/2011 29971-DZNDZMU NAIL, 6 OR MORE 05/11/2011 68731-GBZZWTP NAIL, 6 OR MORE 07/20/2011 71861-JYVHHEF NAIL, 6 OR MORE 10/03/2011 87130-AZKWGGK NAIL, 6 OR MORE 12/12/2011 18409-IGEURDC NAIL, 6 OR MORE 02/22/2012 57529-TFNYASK NAIL, 6 OR MORE 05/09/2012 49203-NEZHLIE NAIL, 6 OR MORE 08/08/2012 25845-DMIVSGA NAIL, 6 OR MORE 11/08/2012 89624-YFOVLLX NAIL, 6 OR MORE 01/30/2013 09690-EJVMXRW NAIL, 6 OR MORE 04/24/2013 95932-WEKVUIH NAIL, 6 OR MORE 07/03/2013 83702-VWOPWXC NAIL, 6 OR MORE 09/16/2013 90088-GPOKXML NAIL, 6 OR MORE 12/23/2013 03675-ZSMCTWW NAIL, 6 OR MORE 03/27/2014 95718-RGGBQDI NAIL, 6 OR MORE 06/09/2014 06239-OEZDHTK NAIL, 6 OR MORE 08/18/2014 23042-JBAKBYP NAIL, 6 OR MORE 10/29/2014 54264-TSZOYJJ NAIL, 6 OR MORE 01/12/2015 68453-SUQWEYE NAIL, 6 OR MORE 04/13/2015 10321-FDKAEOR NAIL, 6 OR MORE 06/29/2015 86502-UKFOGMA NAIL, 6 OR MORE 09/14/2015 23148-EYVSTAH NAIL, 6 OR MORE 12/17/2015 33134-YOPWLWX NAIL, 6 OR MORE 03/17/2016 04788-JBHJUWX NAIL, 6 OR MORE 06/16/2016 00369-AGQLUIM NAIL, 6 OR MORE 08/18/2016 24720-KGYSOGJ NAIL, 6 OR MORE 11/16/2016 71650-YZZEPAJ NAIL, 6 OR MORE 02/16/2017 32609-JHHHOYM NAIL, 6 OR MORE 05/18/2017 14108-MLVVEDS NAIL, 6 OR MORE 08/17/2017 82402-EGRRWAF NAIL, 6 OR MORE 11/16/2017 87473-TWJMEWU NAIL, 6 OR MORE 02/15/2018 52071-Ybfbkbqe Plate 05/18/2017 32489-Zbtsucee Plate 10/29/2014 15700-Yynvkmnq Plate 08/18/2014 37324-Awmsrgpe Plate 06/09/2014 18811-Dzxodhiw Plate 03/27/2014 48288-XOHO SKIN LESIONS, OVER 4 01/11/20 25 19186-ZEAC SKIN LESIONS, OVER 4 10/09/19 25 93290-DCDZ SKIN LESIONS, OVER 4 06/03/20 24 13828-KZZX SKIN LESIONS, OVER 4 08/17/19 19 19529-TDOC SKIN LESIONS, OVER 4 11/16/19 19 94237-TESZ SKIN LESIONS, OVER 4 03/14/20 19 69080-VSFM SKIN LESIONS, OVER 4 06/17/19 20 45293-XTTN SKIN LESIONS, OVER 4 10/17/19 20 27665-XEKH SKIN LESIONS, OVER 4 01/22/20 20 43639-NVSS SKIN LESIONS, OVER 4 04/22/20 20 85362-HPKK SKIN LESIONS, OVER 4 07/29/19 21 68578-YQQM SKIN LESIONS, OVER 4 10/29/19 21 53705-CKCA SKIN LESIONS, OVER 4 01/28/20 21 58695-PEBF SKIN LESIONS, OVER 4 04/28/20 21 53662-DAFY SKIN LESIONS, OVER 4 08/05/19 22 68954-VVLN SKIN LESIONS, OVER 4 06/09/19 15 58615-TKAP SKIN LESIONS, OVER 4 03/27/20 14 09089-QFCI SKIN LESIONS, OVER 4 12/24/19 14 74897-MERN SKIN LESIONS, OVER 4 09/17/19 14 15617-TIPK SKIN LESIONS, OVER 4 07/03/19 14 03366-DXLK SKIN LESIONS, OVER 4 04/24/20 13 03695-XNSV SKIN LESIONS, OVER 4 01/31/20 13 26819-XFNS SKIN LESIONS, OVER 4 11/09/19 13 89957-GCUA SKIN LESIONS, OVER 4 08/09/19 13 25977-TWSD SKIN LESIONS, OVER 4 05/09/20 12 21499-VNMN SKIN LESIONS, OVER 4 02/22/20 12 35854-JNGR SKIN LESIONS, OVER 4 12/12/19 12 12791-KWIR SKIN LESIONS, OVER 4 10/03/19 12 91152-WXWI SKIN LESIONS, OVER 4 07/20/19 12 99687-QGND SKIN LESIONS, OVER 4 05/11/20 11 87549-URYJ SKIN LESIONS, OVER 4 02/24/20 11 50419-MRWT SKIN LESIONS, OVER 4 08/19/19 15 41088-WMVP SKIN LESIONS, OVER 4 10/30/19 15 69218-KKAB SKIN LESIONS, OVER 4 04/13/20 15 86021-LXYW SKIN LESIONS, OVER 4 01/13/20 15 94268-FMNE SKIN LESIONS, OVER 4 03/17/20 16 78286-INQY SKIN LESIONS, OVER 4 12/17/19 16 12766-UKYK SKIN LESIONS, OVER 4 09/14/19 16 42189-FUIU SKIN LESIONS, OVER 4 06/29/19 16 65391-XTEQ SKIN LESIONS, OVER 4 05/18/20 17 44227-GXFN SKIN LESIONS, OVER 4 02/17/20 17 65109-BJYG SKIN LESIONS, OVER 4 08/19/19 17 67536-UAYG SKIN LESIONS, OVER 4 11/17/19 17 30651-VIKH SKIN LESIONS, OVER 4 06/16/19 17 79498-DTQY SKIN LESIONS, OVER 4 05/17/20 18 88333-DOTM SKIN LESIONS, OVER 4 02/16/20 18 22744-NTXA SKIN LESIONS, OVER 4 11/17/19 18 69761-DCAT SKIN LESIONS, OVER 4 08/18/19 18 94698- Removal of Foreign Body, Subcut 0 06/17/2019 Next Appt Details Provider Name:Malik Clements , 05/09/2025 11:45:00 AM, [address] [facility], [place], [address], Insurance Providers Payer Name Payer Address Payer Phone Subscriber Number Group Number Insured Name Patient Relationship to Insured Coverage Start Date Coverage End Date [employer] [address] [facility] [address] [id number] Julienne Chand Self - patient is the insured [facility] [address] [facility] [place] [address] [id number] Julienne Chand Self - patient is [...] [facility] - Fell / concousin 01/07/17 [facility] for 2 day s roxie , for chest pain, high blood pressure and a head bump 03/2013
--- OUTSIDE RECORDS SUMMARY | 2025-01-28 15:24 | XMS_ITS | Clinical Summary ---
Author Organization [facility] Address [address] [place] [address] Phone Care Team Providers Care Sap Bw Architect Name Role Phone Dannie Huang MD Primary Care Provider [phone] Allergies Active Allergy Reactions Criticality Noted Date [...] general and how their size shape and manager change time affect her level of suspicion for [...] AM EDT Office Visit Thoracic Surgery - [address] [place] [address] Cata Lebron PA History of lung cancer (Primary Dx); Multiple pulmonary nodules from Last 3 Months Surgical History Surgery Date Site/Laterality Comments COLONOSCOPY N/A PROCEDURE: HISTORICAL COLONOSCOPY ESOPHAGOGASTRODUODENOSCOPY N/A PROCEDURE: AR ESOPHAGOGASTRODUODENOSCOPY TRANSORAL DIAGNOSTIC CHOLECYSTECTOMY N/A PROCEDURE: HISTORICAL CHOLECYSTECTOMY TUBAL LIGATION PROCEDURE: HISTORICAL TUBAL LIGATION OTHER SURGICAL HISTORY 04/07/2023 Left PROCEDURE: AR THORACOSCOPY W/THERA WEDGE RESEXN INITIAL UNILAT; COMMENT: [...] no dule DM2 (diabetes mellitus, type 2) ([facility] V24, [facility] V28) DX:DM2 (diabetes mellitus, t ype 2) ([facility]) Anemia DX:Anemia Mild intermittent asthma, [...] topic Insurance MEDICARE [facility] [address] [place] [address] Care Teams Sap Bw Architect Relationship Specialty Start Date End Date Dannie Huang MD [address] [place] [address] [address] [place] PCP - General 03/22/18
== END 2025-01-28 15:59 | disposition home or self-care (01) ==
LOC: HO.HCS 14:24
PROVIDERS: PCP Internal Medicine
DX: I10 Essential (primary) hypertension (principal); R07.9 Chest pain, unspecified; I25.10 Atherosclerotic heart disease of native coronary artery without angina pectoris; I35.0 Nonrheumatic aortic (valve) stenosis; Z09 Encounter for follow-up examination after completed treatment for conditions other than malignant neoplasm
CPT/HCPCS: 99214; G2211

== ENCOUNTER → 2025-01-28 14:24 | Outpatient (BNVA) | payer MEDICARE, OTHER, SELFPAY | PROVIDERS: PCP Internal Medicine | DX: Z09 Encounter for follow-up examination after completed treatment for conditions other than malignant neoplasm (principal); I25.10 Atherosclerotic heart disease of native coronary artery without angina pectoris; I10 Essential (primary) hypertension; I35.0 Nonrheumatic aortic (valve) stenosis; R07.9 Chest pain, unspecified | CPT/HCPCS: 99212 ==

== ENCOUNTER 2025-01-29 13:48 | Outpatient (AMB) | payer MEDICARE, OTHER, SELFPAY ==
--- OUTSIDE RECORDS SUMMARY | 2023-08-29 11:00 | XMS_ITS ---
Author Organization [facility] Address [address] [place] [address] Care Team Providers Care Tong Setter Name Role Phone Sal (RETIRED) Dannie SHIELDS Primary Care Provide Fabrice Vergara [phone] REASON FOR VISIT abdominal pain Encounters Encounter Location Date Provider Diagnosis [facility] [address] [place] [address] 08/29/2023 Fabrice Blanchard Plan Of Treatment No Information Progress Notes * TREY BROWN IDOB:1944 (79 yo F)Acc No.[id number]:08/29/2023 Progress Notes Patient: TREY KOWALSKI I Provider: Tory Blanchard MD :1945 A ge:78 Y S ex:Female Date:08/29/2023 Address:[address] [place] [address] , [id number] Pcp:Dannie Huang (RETIRED )MD Subjective: * Chief [...] 08/29/2023 Generated for Printi ng/Faxing/eTransmitting on: 0 01/29/2025 02:37 PM EDT
--- OUTSIDE RECORDS SUMMARY | 2023-10-27 06:30 | XMS_ITS ---
Author Organization [facility] Address [address] [place] [address] Care Team Providers Care Director Of Physical Security Name Role Phone Sal (RETIRED) Dannie SHIELDS Primary Care Provide r Unavailable Fabrice Blanchard Unavailable [phone] REASON FOR VISIT screening,hx polyps,gerd Problems Problem Type SNOMED Code ICD Code Onset Dates Problem Status W/U Status Risk Notes Problem Diverticular disease of colon (803391007) Diverticulosis of large intestine without perforation or abscess without bleeding (K57.30) Active confirmed Problem Gastro-esophagea l reflux disease without esophagitis (013165569) Gastro-esophageal reflux disease without esophagitis (K21.9) Active confirmed Encounters Encounter Location Date Provider Diagnosis [facility] [place] [address] [place], [place] [phone] 10/27/2023 Fabrice Blanchard Encounter for scre ening [...] * TREY BROWN IDOB:1944 (79 yo F)Acc No.[id number]:10/27/2023 EGD and COL/MAC Patient: TREY KOWALSKI I Provider: Tory Blanchard MD :1945 A ge:78 Y S ex:Female Date:10/27/2023 Address:[address] [place] [address] , [id number] Pcp:Dannie Huang (RETIRED )MD Subjective: * Chief [...] FLW-UP 10 YRS DOCD, Modifiers: 1P , 88923 UPPR GI ENDOSCOPY, DIAGNOSIS * * The named appointment provid er may or may not be the originator of this progress note, and it is not deemed complete until electronically signed by the appointment provider. Sign off status: Pending * Provider: Tory Blanchard MD Date: 0 10/27/2023 Generated for Bryan lee/Emily/Reneaitting on: 0 01/29/2025 02:38 PM EDT
--- OUTSIDE RECORDS SUMMARY | 2023-12-01 06:30 | XMS_ITS ---
Author Organization Fabrice Crain III, MD Address [address] [place] [address] Care Team Providers Care Access Assoc Name Role Phone Dannie Huang MD Primary Care Provider Fabrice Butcher Unavailable [phone] Allergies Allergen (clinical drug ingredient) Drug/Non Drug [...] Benzonatate 100 MG TAKE 1 CAPSULE BY [facility] EVERY 8 HOURS NEEDED FOR COUGH Oral Active Albuterol Sulfate HFA 108 (90 Base) MCG/ACT 1 puff as needed Inhalation every 4 hrs Active Zoryve 0.3 % 1 application Team Leader Surgery ally Once a day Active LORazepam 1 [...] Problem Status W/U Status Risk Notes Problem [id number] Other obesity (E66.8) Active confirmed Her body [...] Date Provider Diagnosis Fabrice Crain III, MD [address] [place] [address] [place] [address] 12/01/2023 Fabrice Crain Malignant neoplasm o f [...] Benzonatate 100 MG TAKE 1 CAPSULE BY [facility] EVERY 8 HOURS NEEDED FOR COUGH Oral Albuterol Sulfate HFA 108 (9 0 Base) MCG/ACT 1 puff as needed Inhalation every 4 hrs Zoryve 0.3 % 1 application Team Leader Surgery ally Once a day LORazepam 1 MG [...] OV Provider Name:Fabrice Crain, 04/11/2025 10:00:00 AM, [address] [place] [address] STEFANY BROWN, [place], [address], Progress Notes * JUVENTINO CANDELARIO:[birth year] (78 yo F)Acc No.[id number]:12/01/2023 Progress Notes Patient: TREY KOWALSKI Provider: Tory Crain MD :1945 A ge:78 Y S ex:Female Date:12/01/2023 Address:[address] [place], [place] [address] [place], [id number] Pcp:Dannie Huang MD Subjective: * Chief Complaints: [...] mg/dL) 52 (Ref Range: mg/dL) * Lab:Comprehensive [place]. Pane l Fast * Order Date 11/13/2023 [...] 12/01/2023 Generated for Bryan lee/Faxing/eTransmitting on: 0 01/29/2025 02:37 PM EDT History and Physical Notes * HPI (History of Present Illness) Category Sub-Category Detail Notes COVID-19 Screening Questions Have you had any new onset fever, chills, cough, congestion, sore throat, shortness of breath, muscle aches?: No Have you been exposed to the virus withi n the last 10 days?: No Have you travelled internationally in [facility] last 10 days?: No Have you [...]
--- OUTSIDE RECORDS SUMMARY | 2024-04-05 07:00 | XMS_ITS ---
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 Vital Signs Temperature 97.4 degrees Fahrenheit 04/05/20 24 Blood pressure systolic 138 mm Hg 04/05/20 24 Blood pressure diastolic 77 mm Hg 024 Heart Rate 79 /min 04/05/2024 Height 60 in 04/05/2024 Weight 161 lbs 04/05/2024 BMI 31.44 kg/m2 04/05/2024 Encounters Encounter Location Date Provider Diagnosis Fabrice Crain III, MD [address] [place] [address] [place] [address] 04/05/2024 Fabrice Crain Malignant neoplasm o f [...] a day Zoryve 0.3 % 1 application Advertising Account Manager ally Once a day Benzonatate 100 MG TAKE 1 CAPSULE BY [facility] EVERY 8 HOURS NEEDED FOR COUGH Oral [...] check-up Provider Name:Fabrice Crain, 04/11/2025 10:00:00 AM, [address] [place] [address], [phone], Progress Notes * GEMMA CANDELARIOB:[birth year] (79 yo F)Acc No.[id number]:04/05/2024 Progress Notes Patient: TREY KOWALSKI Provider: Tory Crain MD :1945 A ge:79 Y S ex:Female Date:04/05/2024 Address:[address] [place], [place] [address] [id number] Pcp:Dannie Huang MD Subjective: * Chief Complaints: [...] 06/05/2023 Generated for Printi ng/Emily/eTransmitting on: 0 01/29/2025 02:39 PM EDT History and Physical Notes * HPI (History of Present Illness) Category Sub-Category Detail Notes COVID-19 Screening Questions Have you had any new onset fever, chills, cough, congestion, sore throat, shortness of breath, muscle aches?: No Have you been exposed to the virus withi n the last 10 days?: No Have you travelled internationally in [facility] last 10 days?: No Have [...]
--- NOTE | 2025-01-29 14:15 | A.OFFPC_ITS ---
Vital Signs 01/29/25 14:17 Height 5 ft 4 in BP 140/72 H Blood Pressure Location Rt brachial Position Sitting Respiration 16 Pulse 64 Pulse Source Pulse Oximeter Temp 97.4 F Temp Source Temporal Artery Scan Pulse Oximetry (%) 96 Oxygen Delivery Method Room Air Intake Visit Reasons: ED follow up [employer] Required: No Accompanied by: Son Allergies niacin (Niacin) Allergy (Mild, Verified 01/29/25 14:16) RASH lactose (Lactose) Adverse Reaction (Mild, Verified 01/29/25 14:16) DIARRHEA atorvastatin (Lipitor) Adverse Reaction (Unknown, Verified 01/29/25 14:16) Unknown celecoxib (Celebrex) Adverse Reaction (Unknown, Verified 01/29/25 14:16) Unknown simvastatin Adverse Reaction (Unknown, Verified 01/29/25 14:16) Unknown Tobacco use date assessed: 10/03/24 Dental Screening Dental Screen Date: 10/03/24 HPI HPI Comments History of Present Illness Details The patient is a 79-year-old female presenting with the management of hypertension, insomnia, and chronic cough. Her hypertension became severely elevated recently, with readings reaching 232 mmHg in the emergency room. Currently, the patient's blood pressure is 140/72 mmHg while on Colreg (carvedilol) and hydralazine. Despite medication adherence, she reports intermittent chest pain typically concurrent with elevated blood pressure which was ruled out for acute coronary syndrome recently. She has a history of type 2 diabetes diagnosed in 2016, managed without medication, usually keeping readings in the 130s but recently elevated to 157 mg/dL. The patient underwent a lumpectomy in April 2023 for a cancerous lesion on her left lung. Post-operative care has been overshadowed by personal stressors such as her 's recent from Parkinson's dementia and subsequent lifestyle changes, contributing to heightened anxiety. The patient experiences chronic insomnia, relying on lorazepam (Ativan) for sleep, a dependency that increases her fall risk. Attempts to manage insomnia without medication have been unsuccessful. Her GERD, previously managed with omeprazole, is currently being treated with famotidine which she started recently and reports partial improvement. Her chronic cough, persistent primarily in the evenings, remains unresolved despite using albuterol and fluticasone inhalers, along with a flutter valve device. Medical History: - Essential Hypertension - Type 2 Diabetes Mellitus, diagnosed in 2017 - Aortic Stenosis - Emphysema - Anxiety Disorder - Allergic Rhinitis - Gastroesophageal Reflux Disease (GERD) Surgical History: - Lumpectomy on left lung, April 2023 Medications: - Colreg (Carvedilol) for Essential Hype rtension - Hydralazine for Essential Hypertension - Lorazepam for Insomnia - Famotidine for GERD - Albuterol for Shortness of Breath - Fluticasone for Respiratory Concerns - Benzonatate for Cough (as needed) - Azelastine Nasal [place] for Allergic Rh initis (as needed) - Sertraline (recently restarted) for An xiety Social History: - ; 's recent passing from Winston belle's dementia - Resides in a one-bedroom dwelling post -selling her house - Has six grandchildren - Difficulty sleeping and high stress le vels reportedly due to life changes - Limited physical activity; primarily h omebound - Lives in an assisted living facility Family History: - had Parkinson?s dementia [facility] Medical History (Updated 01/29/25 @ 15:08 by Alex Mensah MD) Peptic ulcer Lung cancer Psoriasis Type 2 diabetes mellitus GERD (gastroesophageal reflux disease) Osteopenia Pulmonary nodule Depression Fibromyalgia IBS (irritable bowel syndrome) High cholesterol HTN (hypertension) Chronic cough Allergic rhinitis Cough due to bronchospasm Surgical History Hx of bladder repair surgery S/P lobectomy of lung History of tubal ligation History of esophagogastroduodenoscopy (EGD) History of laparoscopic cholecystectomy History of colonoscopy (~10/27/23) Family History Father Myocardial infarction Mother Diabetic coma Sister No problems noted. 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 How often do you have a drink containing alcohol?: Never 3. How often do you have six or more drinks on one occasion?: Never Total Score: 0 AREN-7 AMB Questionnaire AREN-7 Date AREN - 7 assessed: 12/05/24 Source: Developed by Drs. Fabrice Barraza, Juliette Aburto, Ricky Mclain and colleagues, with an educational juan daniel from [employer]. Review of Systems Const Details: - Cardiovascular: Reports intermittent chest pain - Endocrine: Reports elevated blood sugar levels - Respiratory: Reports chronic cough, shortness of breath, and emphysema - Gastrointestinal: Reports GERD; recent change to famotidine - Neurological: Reports insomnia; reliant on lorazepam - Psychiatric: Reports anxiety and elevated stress levels All systems reviewed & are unremarkable except as noted in HPI and below Physical exam (Primary Care) Vital Signs: Last Vital Signs Temp 97.4 F 01/29/25 14:17 Pulse 64 01/29/25 14:17 Resp 16 01/29/25 14:17 BP 140/72 H 01/29/25 14:17 Pulse Ox 96 01/29/25 14:17 Oxygen Delivery Method Room Air 01/29/25 14:17 Tobacco/Smoking Status: Tobacco use Status Tobacco use date assessed 10/03/24 01/29/25 14:19 Patient Tobacco Use Status Former Tobacco user 01/29/25 14:19 e-Cigarette/Vaping Use Never Used 01/29/25 14:19 Thrive Assessment: Date of Thrive Assessment Date Thrive assessed 01/24/25 01/29/25 14:19 Const Other: General: Well appearing, well nourished, in no distress. Oriented x 3, normal mood and affect . Ambulating without difficulty. Skin: Good turgor, no rash, unusual bruising or prominent lesions Hair: Normal texture and distribution. Nails: Normal color, no deformities HEENT: Head: Normocephalic, atraumatic, no visible or palpable masses, depressions, or scaring. Eyes: Visual acuity intact, conjunctiva clear, sclera non-icteric, EOM intact, PERRL, fundi have normal optic discs and vessels, no exudates or hemorrhages Ears: EACs clear, TMs translucent & mobile, ossicles nl appearance, hearing intact. Nose: No external lesions, mucosa non-inflamed, septum and turbinates normal Mouth: Mucous membranes moist, no mucosal lesions. Teeth/Gums: No obvious caries or periodontal disease. No gingival inflammation or significant resorption. Pharynx: Mucosa non-inflamed, no tonsillar hypertrophy or exudate Neck: Supple, without lesions, bruits, or adenopathy, thyroid non-enlarged and non-tender Heart: No cardiomegaly or thrills; regular rate and rhythm, no murmur or gallop Lungs: Clear to auscultation and percussion Abdomen: Bowel sounds normal, no tenderness, organomegaly, masses, or hernia Back: Spine normal without deformity or tenderness, no CVA tenderness Rectal: Normal sphincter tone, no hemorrhoids or masses palpable Extremities: No amputations or deformities, cyanosis, edema or varicosities, peripheral pulses intact Musculoskeletal: Normal gait and station. No misalignment, asymmetry, crepitation, defects, tenderness, masses, effusions, decreased range of motion, instability, atrophy or abnormal strength or tone in the head, neck, spine, ribs, pelvis or extremities. Neurologic: CN 2- 12 normal. Sensation to pain, touch, and proprioception normal. DTRs normal in upper and lower extremities. No pathologic reflexes. Psychiatric: Oriented X3, intact recent and remote memory, judgment and insight, normal mood and affect Coding Level of Care Code Est Pt Level 4 (54439) Complex EM visit Add On G2211 Diagnoses HTN (hypertension) I10 Chronic cough R05.3 Assessment & Plan Assessment & Plan (1) HTN (hypertension): Comment: Was previously being managed on Coreg 6.25 mg and hydralazine 25 mg b.i.d. however had elevated pressures necessitating a hospital admission where she was found have elevated troponins and was accompanied by chest pain. At that time underwent echocardiography which was unremarkable. At this time given her history of aortic stenosis and will initiate her on lisinopril 2.5 mg and uptitrate as required. Advised patient to keep a record of medication record. Code(s): I10 - Essential (primary) hypertension Category: Medical Plan: Start lisinopril 2.5 mg daily Continue Coreg 6.25 mg daily Continue hydralazine 25 mg daily Keep blood pressure record and bring on next clinic visit (2) Chronic cough: Comment: Has had a extensive history of chronic cough and has attempted multiple medications such as duloxetine, benzoate, famotidine, omeprazole which have all resulted in minimal improvement in her cough. Does report occasionally she has changes in her cough here and there however is unable to acertain any cause or medication to help. Have asked her to refrain from all medications for short periods and observe for improvement in sytmptoms Code(s): R05.3 - Chronic cough Category: Medical Plan: - HOld meds and observe for improvement Plan 2. Chronic Insomnia - Gradual tapering of lorazepam due to dependency risk. (At 0.5mg at a time for 2 weeks before decreasing an additional 0.5mg) - Recommend non-pharmacological interventions to improve sleep hygiene and decrease anxiety. 3. Chronic Cough - Trial discontinuation of benzonatate, famotidine, loratadine, and azelastine to assess relief. - Continuation of inhalers for symptomatic relief due to emphysema. 4. Type 2 Diabetes Mellitus - Encourage regular monitoring of blood glucose levels. - No current pharmacologic intervention required. 5. Gastroesophageal Reflux Disease Gerd - Continue famotidine for symptomatic control and reassess effectiveness. 6. Emphysema - Continue current inhaler regimen for respiratory management. 7. Aortic Stenosis - Cardiology follow-up to determine the necessity of surgical intervention. 8. Anxiety - Initiate sertraline and monitor therapeutic effects. (will take time for effect to show) - Non-pharmacologic stress management strategies advised. During the consultation, I emphasized the importance of addressing her hypertension due to the risk factors involved, particularly given her aortic stenosis. We discussed starting lisinopril cautiously, monitoring for any adverse effects such as a cough. I advised a gradual taper off lorazepam to manage her chronic insomnia due to its dependency potential and suggested improving sleep hygiene. The patient and her daughter were counseled on trialing the cessation of certain medications to evaluate any change in her chronic cough, given its refractory nature. We discussed the initiation of sertraline for anxiety, explaining its delayed onset of effects and reiterated the focus on non-pharmacological strategies for stress management. Upcoming follow-ups will focus on monitoring the impact of medication changes, particularly in blood pressure and insomnia, and evaluating the management of her respiratory symptoms and anxiety. Medications: New lisinopril 2.5 mg PO DAILY 30 tabs 0RF 30 days Patient Instructions: - Start lisinopril as advised, monitor blood pressure regularly. - Gradually taper off lorazepam under guidance to prevent withdrawal symptoms. - Stop using benzonatate, famotidine, loratadine, and azelastine for a short period to assess cough improvement. - Take your inhalers daily as instructed for respiratory health. - Continue monitoring blood sugar levels. - Follow up with cardiology regarding aortic stenosis and any necessary interventions. - Adopt relaxation techniques, such as walking, to improve mood and stress levels. - Schedule follow-up visits as diaried to evaluate the effectiveness of these interventions.
[2025-01-29 14:17] VITALS: BP 140/72; PULSE 64; RESP 16; TEMP 36.3; O2SAT 96
--- OUTSIDE RECORDS SUMMARY | 2025-01-29 14:38 | XMS_ITS | Patient Health Record ---
Author Organization Fabrice Crain III, MD Address [address] [place] [address] Care Team Providers Care Engineering Analyst Name Role Phone Dannie Huang MD Primary Care Provider Fabrice Butcher Unavailable [phone] Allergies Allergen (clinical drug ingredient) Drug/Non Drug [...] day Active Zoryve 0.3 % 1 application Billet Bed Operator ally Once a day Active Benzonatate 100 MG TAKE 1 CAPSULE BY [facility] EVERY 8 HOURS NEEDED FOR [...] Problem Status W/U Status Risk Notes Problem 9821457 Former smoker (Z87.891) Active confirmed She seems highly motivated not to smoke and we discussed strategies for prevention of relapse in times of stress and illness. Problem 463504775 Fibromyalgia (M79.7) Active confirmed She has occasional low-grade abdominal discomfort. Problem 282054470878 Type 2 diabetes mellitus with other specified complication (E11.69) Active confirmed She will continue on current therapy. Her fasting glucose levels have been under 150. She has been compliant with her medication. Problem 383319289 Other obesity (E66.8) Active confirmed Her body mass index is 30. We have discussed her weight loss strategy. We discussed diet and nutrition. We made a plan to lose weight at a rate of one half of a pound per week. Problem 87971199 Hyperlipidemia, unspecified (E78.5) Active confirmed Her lipids are well controlled and she will continue on her current regimen. Problem 35096964 Age-related osteoporosis without current pathological fracture (M81.0) Active confirmed She is asymptomatic at this time. Problem 14231646 Essential hypertension (I10) Active confirmed Her blood pressure is controlled and no change in her regimen as necessary. Problem 496537141 Gastroesophageal reflux disease without esophagitis (K21.9) Active confirmed She has occasional reflux, well-controll ed medication and no other therapy is necessary at this time. Problem Anemia, unspecified type (D64.9) Active confirmed She has a mild microcytic anemia with a ferritin over 100. The microcytosis is new. She'll be followed carefully. It does not require treatment at this time. Problem 681725752 Malignant neopla sm of lower lobe of left lung (C34.32) Active confirmed There is no sign of recurrent disease at this time. Incisions are healed and the pain is slowly resolving. She has been scheduled for a followup CT scan of the chest by her thoracic surgeon next month. 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 Vital Signs Heart Rate 76 /min 10/04/2024 Temperature 98.1 degrees Fahrenheit 10/04/2024 Blood pressure diastolic 78 mm Hg 10/04/2024 Height 60 in 10/04/2024 Blood pressure systolic 140 mm Hg 10/04/2024 Weight 157 lbs 10/04/2024 BMI 30.66 kg/m2 10/04/2024 Encounters Encounter Location Date Provider Diagnosis Fabrice Crain III, MD [address] [place] [address] [place] [address] 04/05/2024 Fabrice Crain Malignant neoplasm o f lower lobe of left lung C34.32 ; Former smoker Z87.891 ; Gastroesophageal reflux disease without esophagitis K21.9 ; Essential hypertension I10 ; Type 2 diabetes mellitus with other specified complication E11.69 ; Hyperlipidemia, unspecified E78.5 and Age-related osteoporosis without current pathological fracture M81.0 Fabrice Crain III, MD [address] [place] [address] [place] [address] 10/04/2024 Fabrice Crain Malignant neoplasm o f [...] Details Provider Name:Fabrice Brandtrne, 04/11/2025 10:00:00 AM, [address] [place] [address] [address] [facility] [place], [place], [address], Insurance Providers Payer Name Payer Address Payer Phone Subscriber Number Group Number Insured Name Patient Relationship to Insured Coverage Start Date Coverage End Date MEDICARE NGS [address] [place] [phone] [id number] TREY TEE Self - patient is the insured [address] [facility] [phone] [id number] GIANNATREY Fairchild Self - patient is the insured Medical (General) History Medical History History ICD Code Essential hypertension I10 Fibromyalgia M79.7 hiatal hernia hyperlipidemia osteoarthritis diabetes mellitus essential hypertension osteoporosis GERD overweight former smoker 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 Blanchard 2013 Bladder suspention 1992 choleycystectomy 2005 Tubal ligation 1985 Hospitalization History Reason Date(Month/Year) Hospitalization for ' s parkinson's, alzheimer's, and dementia - september, current year
--- OUTSIDE RECORDS SUMMARY | 2025-01-29 14:39 | XMS_ITS | Patient Health Record ---
Author Organization [facility] Address [address] [place] [address] Care Team Providers Care Sports Bookmaker Name Role Phone Sal (RETIRED) Dannie SHIELDS Primary Care Provide r Unavailable Fabrice Blanchard Unavailable [phone] Allergies Allergen (clinical drug ingredient) Drug/Non Drug [...] Problem Gastro-esophage al reflux disease without esophagitis (451754236) Gastro-esophageal reflux disease without esophagitis (K21.9) Active confirmed Problem 425468981 Encounter for screening for malignant neoplasm of colon (Z12.11) Active confirmed Problem 307600157 History of adenomatous polyp of colon (Z86.010) Active confirmed Problem Diverticulosis o f large intestine without perforation or abscess without bleeding (K57.30) Active confirmed Problem 068825214 Generalized abdominal pain (R10.84) Active confirmed Problem 985714761 Gastroesophageal reflux disease, esophagitis presence not specified (K21.9) Active confirmed Problem 50551529 Irritable bowel syndrome with both constipation and diarrhea (K58.2) Active confirmed Problem Chronic cough (13539411) Chronic cough (R05.3) Active confirmed Plan Of [...] Date MEDICARE OF [place] [address] [place] [address] [id number] TREY TEE Self - patient is the insured [facility] [address] [place] [phone] [id number] TREY TEE Self - patient is the insured Medical (General) History Medical History History ICD Code Irritable bowel syndrome ? hx of ulcer disease in the Colonoscopy 10-14-2008-negati ve except diverticulosis and internal hemorrhoids Colon polyps-tubular adenomas removed in 2001 and 2004 GERD--EGD in 1994 neg-Bx neg for H.pylor i NIDDM fibromyalgia hyperlipidemia hypertension Denies [place],CVA,Lung disease,renal disease EGD in 10/2012--neg except for a small HH --no celiac disease, no H.pylori Colonoscopy 08/2013 and in --negative except for sigmoid diverticulosis and internal hemorrhoids Lung cancer with surgery as below in 2022 Surgical History Surgery Date(Month/Year) bladder suspension 1992 cholecystectomy 2003 tubal ligation 1985 LLL lung resection for cancer-Dr. Shaffer at [facility] 04/07/2023
--- OUTSIDE RECORDS SUMMARY | 2025-01-29 14:40 | XMS_ITS | Patient Health Record ---
[facility] Address [address] [place] [address] Care Team Providers Care Insurance Underwriter Sales Name Role Phone OmaraKrin castro Primary Care Provider UnavailMalik Cain Unavailable [phone] Param Syed Unavailable [phone] Radha Weir Unavailable [phone] Allergies Allergen (clinical drug ingredient) Drug/Non Drug [...] Vaccine Route Administration Date Status Comme nts Influenza Unknown 05/19/2017 Administered Influenza Unknown 03/05/2018 Administered Influenza Unknown 04/11/2019 Administered Influenza Unknown 03/05/2020 Administered Influenza Unknown 03/07/2022 Administered Influenza Unknown 03/05/2024 Administered Pneumococcal Unknown 08/17/2017 Refused COVID-19 [employer]/[place] Unknown 06/26/2020 Administered 1st 09/09/2020 Booster P-zer 06/26/2021 Social History Tobacco Use: Social History Observation [...] Problem Acquired hammer toe of right foot (4123356353757636 ) Other hammer toe(s) (acquired), right foot (M20.41) Active confirmed Problem Acquired hammer toe of left foot (3276988583516253 ) Other hammer toe(s) (acquired), left foot (M20.42) Active confirmed Problem Polyneuropathy due to type 2 diabetes mellitus (659298934) Type 2 diabetes mellitus with diabetic polyneuropathy (E11.42) Active confirmed Vital Signs Blood pressure diastolic 65 mm Hg 01/10/2025 Height 5 ft 4 in in 01/10/2025 Blood pressure systolic 120 mm Hg 01/10/2025 Weight 157 lbs 01/10/2025 BMI 26.95 kg/m2 01/10/2025 Procedures Procedure Date Ordered Date Performed Result Body Sit e 45420-ZMZTJIV NAIL, 6 OR MORE 06/03/2024 N/A 53629-EJMT SKIN LESIONS, OVER 4 06/03/2024 N/A 24640-WTZAEGA NAIL, 6 OR MORE 10/08/2024 N/A 10735-PPDV SKIN LESIONS, OVER 4 10/08/2024 N/A 25127-TTSQMNE NAIL, 6 OR MORE 01/10/2025 N/A 91068-CCDW SKIN LESIONS, OVER 4 01/10/2025 N/A Encounters Encounter Location Date Provider Diagnosis [address] [address] 02/22/2024 Param Syed Tinea unguium B35.1 ; Type 2 diabetes mellitus with diabetic polyneuropathy E11.42 ; Pain in right toe(s) M79.674 ; Pain in left toe(s) M79.675 ; Hallux valgus (acquired), left foot M20.12 ; Hallux valgus (acquired), right foot M20.11 ; Ingrowing nail L60.0 ; Primary osteoarthritis, left ankle and foot M19.072 and Metatarsalgia, right foot M77.[address] [address] 06/03/2024 Radha Weir Type 2 diabetes mellitus with diabetic polyneuropathy E11.42 and Tinea unguium B35.[address] [address] 10/08/2024 Malik Clements Type 2 diabetes mellitus with diabetic polyneuropathy E11.42 ; Tinea unguium B35.1 ; Other hammer toe(s) (acquired), right foot M20.41 and Other hammer toe(s) (acquired), left foot M20.42 [facility] [address] [address] 01/10/2025 Malik Clements Type 2 diabetes mellitus with diabetic polyneuropathy E11.42 and Tinea unguium B35.[address] [address] 09/24/2024 Radha Weir Assessments Encounter Date Diagnosis [...] X ray : Ankle, left 3V 11/15/2018 19093-ZVRWMCS NAIL, 6 OR MORE 05/17/2018 96517-WAAPYSY NAIL, 6 OR MORE 06/03/2024 54900-CDTFORO NAIL, 6 OR MORE 10/08/2024 84672-VGTMOXU NAIL, 6 OR MORE 01/10/2025 88886-HAINHNN NAIL, 6 OR MORE 02/23/2011 56012-OQQIHBE NAIL, 6 OR MORE 05/11/2011 27365-MDYLOCI NAIL, 6 OR MORE 07/20/2011 65880-MRYROZC NAIL, 6 OR MORE 10/03/2011 56173-QDWZLDN NAIL, 6 OR MORE 12/12/2011 65495-YYKQPHP NAIL, 6 OR MORE 02/22/2012 10840-PIDIFOL NAIL, 6 OR MORE 05/09/2012 06461-CISWSGU NAIL, 6 OR MORE 08/08/2012 70485-GOPPLUP NAIL, 6 OR MORE 11/08/2012 70669-DVNJTWA NAIL, 6 OR MORE 01/30/2013 48831-CHTDPVY NAIL, 6 OR MORE 04/24/2013 85667-RRNYDZM NAIL, 6 OR MORE 07/03/2013 55789-KJEPZVU NAIL, 6 OR MORE 09/16/2013 27160-FDSYAFW NAIL, 6 OR MORE 12/23/2013 81924-XIKXDUO NAIL, 6 OR MORE 03/27/2014 17370-FTGLDXQ NAIL, 6 OR MORE 06/09/2014 63923-MZDWHBX NAIL, 6 OR MORE 08/18/2014 39920-AUUGITK NAIL, 6 OR MORE 10/29/2014 86031-VAKEFOC NAIL, 6 OR MORE 01/12/2015 57546-HQOSJWN NAIL, 6 OR MORE 04/13/2015 89705-KNZDCWW NAIL, 6 OR MORE 06/29/2015 50595-WECKKRZ NAIL, 6 OR MORE 09/14/2015 00018-RADNCKZ NAIL, 6 OR MORE 12/17/2015 10530-UUDVEAT NAIL, 6 OR MORE 03/17/2016 16329-RDRSZLZ NAIL, 6 OR MORE 06/16/2016 81928-QBCMDHW NAIL, 6 OR MORE 08/18/2016 22358-DEOATPG NAIL, 6 OR MORE 11/16/2016 27525-CUACQQN NAIL, 6 OR MORE 02/16/2017 62033-NRPZCDW NAIL, 6 OR MORE 05/18/2017 64414-KWJUDDS NAIL, 6 OR MORE 08/17/2017 13264-WLSBBDQ NAIL, 6 OR MORE 11/16/2017 69563-GKUGZPF NAIL, 6 OR MORE 02/15/2018 01675-Deuujcec Plate 05/18/2017 28539-Gjlfgnur Plate 10/29/2014 08650-Shgylmel Plate 08/18/2014 30478-Cwypcffv Plate 06/09/2014 14030-Vlccaxib Plate 03/27/2014 45887-PUOT SKIN LESIONS, OVER 4 01/11/20 25 30173-ETOU SKIN LESIONS, OVER 4 10/09/19 25 14506-SXEY SKIN LESIONS, OVER 4 06/03/20 24 47273-KXLC SKIN LESIONS, OVER 4 08/17/19 19 07414-TSSV SKIN LESIONS, OVER 4 11/16/19 19 31238-XNRJ SKIN LESIONS, OVER 4 03/14/20 19 05509-NGRW SKIN LESIONS, OVER 4 06/17/19 20 59506-IVIX SKIN LESIONS, OVER 4 10/17/19 20 97668-SIAC SKIN LESIONS, OVER 4 01/22/20 20 79502-BRUE SKIN LESIONS, OVER 4 04/22/20 20 28014-XVBO SKIN LESIONS, OVER 4 07/29/19 21 27937-VMFN SKIN LESIONS, OVER 4 10/29/19 21 16482-FRES SKIN LESIONS, OVER 4 01/28/20 21 65911-EHDV SKIN LESIONS, OVER 4 04/28/20 21 36658-RZKY SKIN LESIONS, OVER 4 08/05/19 22 66512-SDQP SKIN LESIONS, OVER 4 06/09/19 15 32531-NHYG SKIN LESIONS, OVER 4 03/27/20 14 95416-SIGL SKIN LESIONS, OVER 4 12/24/19 14 85828-OSBS SKIN LESIONS, OVER 4 09/17/19 14 62670-FTVN SKIN LESIONS, OVER 4 07/03/19 14 87172-JIPU SKIN LESIONS, OVER 4 04/24/20 13 12084-QAWW SKIN LESIONS, OVER 4 01/31/20 13 77929-URKF SKIN LESIONS, OVER 4 11/09/19 13 63433-WZFM SKIN LESIONS, OVER 4 08/09/19 13 90719-VWUF SKIN LESIONS, OVER 4 05/09/20 12 96003-GNUA SKIN LESIONS, OVER 4 02/22/20 12 23306-RNZZ SKIN LESIONS, OVER 4 12/12/19 12 44055-OFLK SKIN LESIONS, OVER 4 10/03/19 12 17775-PTNX SKIN LESIONS, OVER 4 07/20/19 12 72391-GBJZ SKIN LESIONS, OVER 4 05/11/20 11 70121-PCZP SKIN LESIONS, OVER 4 02/24/20 11 28701-CAKX SKIN LESIONS, OVER 4 08/19/19 15 07145-LXIK SKIN LESIONS, OVER 4 10/30/19 15 49899-IFWY SKIN LESIONS, OVER 4 04/13/20 15 66074-UKUH SKIN LESIONS, OVER 4 01/13/20 15 50768-UQFF SKIN LESIONS, OVER 4 03/17/20 16 06018-CIEX SKIN LESIONS, OVER 4 12/17/19 16 58456-PPIX SKIN LESIONS, OVER 4 09/14/19 16 87720-DFUV SKIN LESIONS, OVER 4 06/29/19 16 74899-JGDY SKIN LESIONS, OVER 4 05/18/20 17 36257-PFEI SKIN LESIONS, OVER 4 02/17/20 17 87189-PSSO SKIN LESIONS, OVER 4 08/19/19 17 14313-NPVG SKIN LESIONS, OVER 4 11/17/19 17 84683-FXBH SKIN LESIONS, OVER 4 06/16/19 17 63982-BDDZ SKIN LESIONS, OVER 4 05/17/20 18 66774-KXVN SKIN LESIONS, OVER 4 02/16/20 18 60555-FOFS SKIN LESIONS, OVER 4 11/17/19 18 01677-LBVO SKIN LESIONS, OVER 4 08/18/19 18 33742- Removal of Foreign Body, Subcut 0 06/17/2019 Next Appt Details Provider Name:Malik Clements , 05/09/2025 11:45:00 AM, [address] [facility], [place], [address], Insurance Providers Payer Name Payer Address Payer Phone Subscriber Number Group Number Insured Name Patient Relationship to Insured Coverage Start Date Coverage End Date Medicare National [employer] [address] [place] [address] [id number] Julienne Chand Self - patient is the insured [facility] [address] [facility] [place] [address] [phone] [id number] Julienne Chand Self - patient is [...] [facility] - [facility] / concousin 01/07/17 [facility] for 2 day s roxie , for chest pain, high blood pressure and a head bump 03/2013
--- OUTSIDE RECORDS SUMMARY | 2025-01-29 14:40 | XMS_ITS | Clinical Summary ---
Author Organization [facility] Address [address] [place] [address] Phone Care Team Providers Care Career Development Counselor Name Role Phone Dannie Huang MD Primary Care Provider Allergies Active Allergy Reactions Criticality Noted Date [...] general and how their size shape and global climate change analyst time affect her level of suspicion for [...] AM EDT Office Visit Thoracic Surgery - [address] [place] [address] Cata Lebron PA History of lung cancer (Primary Dx); Multiple pulmonary nodules from Last 3 Months Surgical History Surgery Date Site/Laterality Comments COLONOSCOPY N/A PROCEDURE: HISTORICAL COLONOSCOPY ESOPHAGOGASTRODUODENOSCOPY N/A PROCEDURE: [place] ESOPHAGOGASTRODUODENOSCOPY TRANSORAL DIAGNOSTIC CHOLECYSTECTOMY N/A PROCEDURE: HISTORICAL CHOLECYSTECTOMY TUBAL LIGATION PROCEDURE: HISTORICAL TUBAL LIGATION OTHER SURGICAL HISTORY 04/07/2023 Left PROCEDURE: [place] THORACOSCOPY W/THERA WEDGE RESEXN INITIAL UNILAT; COMMENT: [...] no dule DM2 (diabetes mellitus, type 2) ([facility] V24, [facility] V28) DX:DM2 (diabetes mellitus, t ype 2) ([facility]) Anemia DX:Anemia Mild intermittent asthma, uncomplicated [...] age to complete this topic Insurance MEDICARE [facility] [address] [place] [address] Care Teams Career Development Counselor Relationship Specialty Start Date End Date Dannie Huang MD [address] [place] [address] [address] PCP - General 03/22/18
== END 2025-01-29 15:13 | disposition home or self-care (01) ==
LOC: HO.HMCHD 13:49
PROVIDERS: PCP Student in an Organized Health Care Education/Training Program; Visit Provider Student in an Organized Health Care Education/Training Program
DX: I10 Essential (primary) hypertension (principal); R05.3 Chronic cough

== ENCOUNTER → 2025-01-29 13:48 | Outpatient (BNVA) | payer MEDICARE, OTHER, SELFPAY | PROVIDERS: PCP Student in an Organized Health Care Education/Training Program; Visit Provider Student in an Organized Health Care Education/Training Program | DX: I10 Essential (primary) hypertension (principal); R05.3 Chronic cough | CPT/HCPCS: 99212 ==

== ENCOUNTER 2025-02-03 18:13 | Inpatient (IN) | payer MEDICARE, OTHER, SELFPAY ==
--- OUTSIDE RECORDS SUMMARY | 2023-08-29 11:00 | XMS_ITS ---
Author Organization [facility] Address [address] [place] [address] Care Team Providers Care Bike Designer Name Role Phone Sal (RETIRED) Dannie SHIELDS Primary Care Provide Fabrice Vergara [phone] REASON FOR VISIT abdominal pain Encounters Encounter Location Date Provider Diagnosis [facility] [address] [place] [address] 08/29/2023 Fabrice Blanchard Plan Of Treatment No Information Progress Notes * TREY BROWN IDOB:1944 (79 yo F)Acc No.[id number]:08/29/2023 Progress Notes Patient: TREY KOWALSKI I Provider: Tory Blanchard MD :1945 A ge:78 Y S ex:Female Date:08/29/2023 Address:[address] [place] [address] , [id number] Pcp:Dannie Huang (RETIRED )MD Subjective: * Chief [...] 08/29/2023 Generated for Printi ng/Faxing/eTransmitting on: 0 02/03/2025 06:54 PM EDT
--- OUTSIDE RECORDS SUMMARY | 2023-10-11 05:53 | XMS_ITS ---
Author Organization Fabrice Crain III, MD Address [address] [place] [address] [place] [address] Care Team Providers Care Duralumin Metalworker Name Role Phone Dannie Huang MD Primary Care Provider Fabrice Butcher Unavailable [phone] Chest W/ IV CONTRAST ORDER Social History Sex Assigned At : Social History Observation Description Sex Assigned At Female Encounters Encounter Location Date Provider Diagnosis Fabrice Crain III, MD [address] [place] [address] [place] [address] 10/11/2023 Fabrice Crain Malignant neoplasm of lower lobe of left lung C34.32 Assessments Encounter Date Diagnosis (ICD Code) Assessment Notes Treatment Notes Treatment Clinical Notes 10/11/2023 Malignant neoplasm of lower lobe of left lung (ICD-10 - C34.32) Plan Of Treatment Pending Test Test Name Order Date CT chest w con 10/11/2023 Next Appt Details Provider Name:Fabrice Crain, 04/11/2025 10:00:00 AM, [address] [place] [address] [place], [address], Progress Notes * KHOA CANDELARIOADOB:[birth year] (78 yo F)Acc No.[id number]:10/11/2023 Patient: TREY KOWALSKI :1945 A ge:78 Y S ex:Female Address:[address] [place], [address] Subjective: * Chief Complaints: * C T Chest W/ IV CONTRAST ORDER * Medical History: * Surgical History: * Hospitalization/Major Diagno stic Procedure: * Medications: Objective: Assessment: * Assessment: 1. M alignant neoplasm of lower lobe of left lung - C34.32 Plan: * Treatment: * Procedure Codes: * true * Date: Generated for Bryan lee/Emily/Reneaitting on: 0 02/03/2025 06:56 PM EDT
--- OUTSIDE RECORDS SUMMARY | 2023-10-16 09:06 | XMS_ITS ---
Author Organization Fabrice Crain III, MD Address [address] [place] [address] [place] [address] Care Team Providers Care Tetryl Boiling Tub Operator Name Role Phone Dannie Huang MD Primary Care Provider Fabrice Butcher [phone] REASON FOR VISIT Regarding CT Chest Social History Sex Assigned At : Social History Observation Description Sex Assigned At Female Encounters Encounter Location Date Provider Diagnosis Fabrice Crain III, MD [address] [place] [address] [place] [address] 10/16/2023 Fabrice Crain Plan Of Treatment Next Appt Details Provider Name:Fabrice Crain, 04/11/2025 10:00:00 AM, [address] [place] [address] [place], [address], Progress Notes * GEMMA CANDELARIOB:[birth year] (78 yo F)Acc No.[id number]:10/16/2023 Patient: Carlos TREY DE LA PAZ :1945 A ge:78 Y S ex:Female Address:[address] [facility] [place], [address] * true * Date: Generated for Printi ng/Faxing/eTransmitting on: 0 02/03/2025 06:55 PM EDT
--- OUTSIDE RECORDS SUMMARY | 2023-10-27 06:30 | XMS_ITS ---
Author Organization [facility] Address [address] [place] [address] Care Team Providers Care Operations Welder Name Role Phone Sal (RETIRED) Dannie SHIELDS Primary Care Provide r Unavailable Fabrice Blanchard Unavailable [phone] REASON FOR VISIT screening,hx polyps,gerd Problems Problem Type SNOMED Code ICD Code Onset Dates Problem Status W/U Status Risk Notes Problem Diverticulosis o f large intestine without perforation or abscess without bleeding (K57.30) Active confirmed Problem Gastro-esophage al reflux disease without esophagitis (349023213) Gastro-esophageal reflux disease without esophagitis (K21.9) Active confirmed Encounters Encounter Location Date Provider Diagnosis [facility] Outpatient [address] [place] [phone] 10/27/2023 Fabrice Blanchard Encounter for scre ening [...] * TREY BROWN IDOB:1944 (79 yo F)Acc No.[id number]:10/27/2023 EGD and COL/MAC Patient: RTEY KOWALSKI I Provider: Tory Blanchard MD :1945 A ge:78 Y S ex:Female Date:10/27/2023 Address:[address] [place] [address] , [id number] Pcp:Dannie Huang (RETIRED )MD Subjective: * Chief [...] FLW-UP 10 YRS DOCD, Modifiers: 1P , 63045 UPPR GI ENDOSCOPY, DIAGNOSIS * * The named appointment provid er may or may not be the originator of this progress note, and it is not deemed complete until electronically signed by the appointment provider. Sign off status: Pending * Provider: Tory Blanchard MD Date: 0 10/27/2023 Generated for Bryan lee/Emily/eTransmitting on: 0 02/03/2025 06:55 PM EDT
--- OUTSIDE RECORDS SUMMARY | 2023-12-01 06:30 | XMS_ITS ---
Author Organization Fabrice Crain III, MD Address [address] [place] [address] Care Team Providers Care Spa Host Name Role Phone Dannie Huang MD Primary Care Provider Fabrice Butcher Unavailable [phone] Allergies Allergen (clinical drug ingredient) Drug/Non Drug [...] 100 MG TAKE 1 CAPSULE BY [facility] EVERY 8 HOURS NEEDED FOR COUGH Oral Active Albuterol Sulfate HFA 108 (90 Base) MCG/ACT 1 puff as needed Inhalation every 4 hrs Active Zoryve 0.3 % 1 application County Program Technician ally Once a day Active LORazepam 1 [...] Problem Status W/U Status Risk Notes Problem [id number] Other obesity (E66.8) Active confirmed Her body [...] Provider Diagnosis Fabrice Crain III, MD [address] [place] [address] [place] [address] 12/01/2023 Fabrice Crain Malignant neoplasm o f [...] 100 MG TAKE 1 CAPSULE BY [facility] EVERY 8 HOURS NEEDED FOR COUGH Oral Albuterol Sulfate HFA 108 (9 0 Base) MCG/ACT 1 puff as needed Inhalation every 4 hrs Zoryve 0.3 % 1 application County Program Technician ally Once a day LORazepam 1 MG [...] OV Provider Name:Fabrice Crain, 04/11/2025 10:00:00 AM, [address] [place] [address] STEFANY BROWN, [place], [address], Progress Notes * JUVENTINO CANDELARIO:[birth year] (78 yo F)Acc No.[id number]:12/01/2023 Progress Notes Patient: TREY KOWALSKI Provider: Tory Crain MD :1945 A ge:78 Y S ex:Female Date:12/01/2023 Address:[address] [place], [place] [address] [place], [id number] Pcp:Dannie Huang MD Subjective: * Chief Complaints: [...] mg/dL) 52 (Ref Range: mg/dL) * Lab:Comprehensive [place]. Pane l Fast * Order Date 11/13/2023 [...] 12/01/2023 Generated for Bryan lee/Faxing/eTransmitting on: 0 02/03/2025 06:54 PM EDT History and Physical Notes * HPI (History of Present Illness) Category Sub-Category Detail Notes COVID-19 Screening Questions Have you had any new onset fever, chills, cough, congestion, sore throat, shortness of breath, muscle aches?: No Have you been exposed to the virus withi n the last 10 days?: No Have you travelled internationally in [facility] last 10 days?: No Have [...]
--- OUTSIDE RECORDS SUMMARY | 2024-04-05 07:00 | XMS_ITS ---
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 Vital Signs Temperature 97.4 degrees Fahrenheit 04/05/20 24 Blood pressure systolic 138 mm Hg 04/05/20 24 Blood pressure diastolic 77 mm Hg 024 Heart Rate 79 /min 04/05/2024 Height 60 in 04/05/2024 Weight 161 lbs 04/05/2024 BMI 31.44 kg/m2 04/05/2024 Encounters Encounter Location Date Provider Diagnosis Fabrice Crain III, MD [address] [place] [address] [place] [address] 04/05/2024 Fabrice Crain Malignant neoplasm o f [...] a day Zoryve 0.3 % 1 application Grain Distributor ally Once a day Benzonatate 100 MG TAKE 1 CAPSULE BY [facility] EVERY 8 HOURS NEEDED FOR [...] check-up Provider Name:Fabrice Crain, 04/11/2025 10:00:00 AM, [address] [place] [address], [phone], Progress Notes * GEMMA CANDELARIOB:[birth year] (79 yo F)Acc No.[id number]:04/05/2024 Progress Notes Patient: TREY KOWALSKI Provider: Tory Crain MD :1945 A ge:79 Y S ex:Female Date:04/05/2024 Address:[address] [place], [place] [address]R[place] [id number] Pcp:Dannie Huang MD Subjective: * Chief Complaints: [...] 06/05/2023 Generated for Printi ng/Emily/eTransmitting on: 0 02/03/2025 06:55 PM EDT History and Physical Notes * HPI (History of Present Illness) Category Sub-Category Detail Notes COVID-19 Screening Questions Have you had any new onset fever, chills, cough, congestion, sore throat, shortness of breath, muscle aches?: No Have you been exposed to the virus withi n the last 10 days?: No Have you travelled internationally in [facility] last 10 days?: No Have [...]
--- OUTSIDE RECORDS SUMMARY | 2024-09-26 11:45 | XMS_ITS ---
Author Organization [facility] Address [address] [facility] [place] [address] Care Team Providers Care Marketing Finance Specialist Name Role Phone OmarJessica castroah Primary Care Provider Malik Albert Unavailable [phone] Radha Weir Unavailable [phone] Allergies Allergen (clinical drug ingredient) Drug/Non Drug [...] Active Encounters Encounter Location Date Provider Diagnosis [facility] [address] [address] 09/26/2024 Radha Weir Plan Of Treatment Next Appt Details Provider Name:Malik Clements , 05/09/2025 11:45:00 AM, [address] [place] [address], [phone], Progress Notes * Ahsan CANDELARIOB:[birth year] (79 yo F)Acc No.[id number]:09/26/2024 Progress Note Patient: Julienne KOWALSKI Provider: Mikel Weir DPM :1945 A ge:79 Y S ex:Female Date:09/26/2024 Address:[address] [place], [place] [id number] Pcp:Karin Nelson Subjective: * Chief Complaints: * [...] 09/26/2024 Generated for Bryan lee/Emily/Reneaitting on: 0 02/03/2025 06:55 PM EDT
--- OUTSIDE RECORDS SUMMARY | 2024-10-04 07:00 | XMS_ITS ---
Author Organization Fabrice Crain III, MD Address [address] [place] [address] Care Team Providers Care Aegis Console Operator Track Name Role Phone Dannie Huang MD Primary Care Provider Fabrice Butcher Unavailable [phone] Allergies Allergen (clinical drug ingredient) Drug/Non Drug [...] Benzonatate 100 MG TAKE 1 CAPSULE BY [facility] EVERY 8 HOURS NEEDED FOR [...] day Active Zoryve 0.3 % 1 application Electrolysist ally Once a day Active Social History [...] Problem Status W/U Status Risk Notes Problem [id number] Malignant neoplasm of lower lobe of left [...] Provider Diagnosis Fabrice Crain III, MD [address] [place] [address] [place] [address] 10/04/2024 Fabrice Crain Malignant neoplasm o f [...] Benzonatate 100 MG TAKE 1 CAPSULE BY [facility] EVERY 8 HOURS NEEDED FOR [...] a day Zoryve 0.3 % 1 application Electrolysist ally Once a day Next Appt Details Follow Up: 6 Months, Reason: ov Provider Name:Fabrice Brandtrne, 04/11/2025 10:00:00 AM, [address] [place] [address] [address] BROWN, [place], [address], Progress Notes * JUVENTINO CANDELARIO:[birth year] (79 yo F)Acc No.[id number]:10/04/2024 Progress Notes Patient: TREY KOWALSKI Provider: Tory Crain MD :1945 A ge:79 Y S ex:Female Date:10/04/2024 Address:[address] [place], [place] [phone] Pcp:Dannie Huang MD Subjective: * Chief Complaints: [...] June and moved innto an apartment in [place] near her workplace. On October 08, 2024. Her thoracic surgeon, Dr. Cheng, has ordered a CT scan of her chest for surveillance purposes. She has a new primary care physician, Dr. Fuentes, at [facility], who has put her on sertraline [...] 0 10/04/2024 Generated for Bryan lee/Emily/Reneaitting on: 0 02/03/2025 06:56 PM EDT History and Physical Notes * [...]
--- NOTE | ~2025-02-03 | MR_ITS ---
EXAMINATION: MR BRAIN WITHOUT CONTRAST CLINICAL INFORMATION: TIA versus CVA. COMPARISON: Correlated to CT head dated February 03, 2025. TECHNIQUE: MRI of the brain was obtained using routine sequences without contrast. FINDINGS: No restricted diffusion. No acute intracranial hemorrhage, mass effect, midline shift, hydrocephalus or herniation. [place]-white matter differentiation is normal. Bilateral, multifocal patchy and punctate subcortical deep white matter hyperintense T2 FLAIR signal involving centrum semiovale and leong radiata. Mild prominence of the extra-axial CSF spaces cerebral sulci likely age-related. Flow-void signal within the main cerebral vessels is normal. Sellar/suprasellar region demonstrated no signal abnormality or gross masses. Craniocervical junction demonstrates normal position of the cerebellar tonsils. MR/MR head/brain wo con IMPRESSION: No acute stroke/nonhemorrhagic ischemia or acute intracranial hemorrhage. White matter T2 FLAIR signal. Consider small vessel occlusive disease versus demyelinating process. Electronically signed by: Juan Diego Trimble MD 02/04/2025 01:21 PM EDT
--- NOTE | ~2025-02-03 | XR_ITS ---
CLINICAL HISTORY: cough, chest pressure 2 view chest x-ray Comparison: Chest x-ray from 01/23/2025 Findings: No consolidation, pneumothorax, or pleural effusion. Mild-moderate emphysematous changes. Borderline cardiomegaly tortuosity thoracic aorta. Degenerative changes include imaged shoulders, AC joints, and imaged spine. IMPRESSION: No consolidation. This document has been electronically signed by: Gibran Michaud MD on 02/04/2025 00:17:29
--- NOTE | ~2025-02-03 | CT_ITS ---
CLINICAL HISTORY: vision changes, headache CT angiography of head and neck with contrast. With MIP MPR Postprocessing. And with noncontrast head CT Comparison: None provided Findings: Head CT without contrast: No acute intracranial hemorrhage. No midline shift or hydrocephalus. No large arterial territorial infarction by CT. Mild white matter lesions are nonspecific and likely due to small-vessel ischemic disease. Mild/minimal volume loss is generalized. Mucosal thickening of the imaged paranasal sinuses are multifocal. Imaged mastoid air cells are well aerated. No acute skull fracture. CTA head: Calcifications include bilateral carotid siphons with mild/minimal stenosis. No ICA or M1 occlusion. Asymmetric branching of the proximal ACAs and proximal MCAs. Anterior communicating artery is patent (image 298 of series 10). The right vertebral artery is dominant. The basilar artery is patent. Proximal model technician are unremarkable for technique and venous contamination. No proximal intracranial arterial aneurysm. Neck: Mild to moderate (25-50%) stenosis of the proximal right ICA with small partial carotid web (imaged 597 of series 10). Calcified and noncalcified plaque involving bilateral carotid bulbs and bilateral carotid bifurcations. No significant stenosis of the left internal carotid artery by NASCET criteria. The right vertebral artery is dominant. Tortuosity of the multiple vessels noted. Calcified and noncalcified plaque include imaged aorta and its branches with common origin of the brachiocephalic artery and left common carotid artery. These are partly obscured by artifacts including metal streak artifacts. Mild emphysematous changes of the imaged lung apices. Disc osteophyte complexes and facet arthropathy are multifocal in the imaged spine. Mild retrolisthesis of the C4-C5 with mild spinal canal stenosis by CT. IMPRESSION: Head CT without contrast: No acute intracranial abnormality by CT. CTA head: 1. No ICA or M1 occlusion. 2. The basilar artery is patent. Neck: 1. 25-50% stenosis of right ICA by NASCET criteria. 2. No significant stenosis of the left internal carotid artery by NASCET criteria. 3. The right vertebral artery is dominant 4. Multifocal atherosclerosis. This document has been electronically signed by: Gibran Michaud MD on 02/04/2025 00:38:34
[2025-02-03 18:25] VITALS: BP 189/85; BP 210/100; PULSE 76; PULSE 81; RESP 18; TEMP 36.7; O2SAT 95; O2SAT 97; BMI 28.5
--- NOTE | 2025-02-03 18:45 | ECG_ITS ---
Test Reason : HYPERTENSION Blood Pressure : */* mmHG Vent. Rate : 80 BPM Atrial Rate : 80 BPM P-R Int : 160 ms QRS Dur : 94 ms QT Int : 396 ms P-R-T Axes : 49 28 55 degrees QTcB Int : 456 ms Normal sinus rhythm Normal ECG When compared with ECG of 23-Jan-2025 15:50, No significant change was found Referred By: Generic ED Physician Electronically Signed By: Wayne Sr
--- OUTSIDE RECORDS SUMMARY | 2025-02-03 18:55 | XMS_ITS | Patient Health Record ---
Author Organization [facility] Address [address] [place] [address] Care Team Providers Care Windrower Operator Name Role Phone Sal (RETIRED) Dannie SHIELDS Primary Care Provide r Unavailable Fabrice Blanchard Unavailable [phone] Allergies Allergen (clinical drug ingredient) Drug/Non Drug [...] Problem Gastro-esophage al reflux disease without esophagitis (399392074) Gastro-esophageal reflux disease without esophagitis (K21.9) Active confirmed Problem 468386238 Encounter for screening for malignant neoplasm of colon (Z12.11) Active confirmed Problem 654305872 History of adenomatous polyp of colon (Z86.010) Active confirmed Problem Diverticulosis o f large intestine without perforation or abscess without bleeding (K57.30) Active confirmed Problem 515198285 Generalized abdominal pain (R10.84) Active confirmed Problem 679279779 Gastroesophageal reflux disease, esophagitis presence not specified (K21.9) Active confirmed Problem 36407460 Irritable bowel syndrome with both constipation and diarrhea (K58.2) Active confirmed Problem Chronic cough (42007780) Chronic cough (R05.3) Active confirmed Plan Of [...] Date MEDICARE OF [place] [address] [place] [address] [id number] TREY TEE Self - patient is the insured [facility] [address] [place] [address] [phone] [id number] TREY TEE Self - patient is the insured Medical (General) History Medical History History ICD Code Irritable bowel syndrome ? hx of ulcer disease in the Colonoscopy 10-14-2008-negati ve except diverticulosis and internal hemorrhoids Colon polyps-tubular adenomas removed in 2001 and 2004 GERD--EGD in 1994 neg-Bx neg for H.pylor i NIDDM fibromyalgia hyperlipidemia hypertension Denies ME,CVA,Lung disease,renal disease EGD in 10/2012--neg except for a small HH --no celiac disease, no H.pylori Colonoscopy 08/2013 and in --negative except for sigmoid diverticulosis and internal hemorrhoids Lung cancer with surgery as below in 2022 Surgical History Surgery Date(Month/Year) bladder suspension 1992 cholecystectomy 2003 tubal ligation 1985 LLL lung resection for cancer-Dr. Shaffer at [facility] 04/07/2023
--- OUTSIDE RECORDS SUMMARY | 2025-02-03 18:55 | XMS_ITS | Patient Health Record ---
Author Organization Fabrice Crain III, MD Address [address] [place] [address] Care Team Providers Care Shank Maker Name Role Phone Dannie Huang MD Primary Care Provider Fabrice Butcher Unavailable [phone] Allergies Allergen (clinical drug ingredient) Drug/Non Drug [...] day Active Zoryve 0.3 % 1 application [employer] Chief ally Once a day Active Benzonatate 100 [...] Problem Status W/U Status Risk Notes Problem 1669850 Former smoker (Z87.891) Active confirmed She seems highly motivated not to smoke and we discussed strategies for prevention of relapse in times of stress and illness. Problem 004873138 Fibromyalgia (M79.7) Active confirmed She has occasional low-grade abdominal discomfort. Problem 550791565311 Type 2 diabetes mellitus with other specified complication (E11.69) Active confirmed She will continue on current therapy. Her fasting glucose levels have been under 150. She has been compliant with her medication. Problem 910897669 Other obesity (E66.8) Active confirmed Her body mass index is 30. We have discussed her weight loss strategy. We discussed diet and nutrition. We made a plan to lose weight at a rate of one half of a pound per week. Problem 77387541 Hyperlipidemia, unspecified (E78.5) Active confirmed Her lipids are well controlled and she will continue on her current regimen. Problem 17711461 Age-related osteoporosis without current pathological fracture (M81.0) Active confirmed She is asymptomatic at this time. Problem 77679130 Essential hypertension (I10) Active confirmed Her blood pressure is controlled and no change in her regimen as necessary. Problem 268113526 Gastroesophageal reflux disease without esophagitis (K21.9) Active confirmed She has occasional reflux, well-controll ed medication and no other therapy is necessary at this time. Problem Anemia, unspecified type (D64.9) Active confirmed She has a mild microcytic anemia with a ferritin over 100. The microcytosis is new. She'll be followed carefully. It does not require treatment at this time. Problem 615116567 Malignant neopla sm of lower lobe of left lung (C34.32) Active confirmed There is no sign of recurrent disease at this time. Incisions are healed and the pain is slowly resolving. She has been scheduled for a followup CT scan of the chest by her thoracic surgeon next month. 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 Vital Signs Heart Rate 76 /min 10/04/2024 Temperature 98.1 degrees Fahrenheit 10/04/2024 Blood pressure diastolic 78 mm Hg 10/04/2024 Height 60 in 10/04/2024 Blood pressure systolic 140 mm Hg 10/04/2024 Weight 157 lbs 10/04/2024 BMI 30.66 kg/m2 10/04/2024 Encounters Encounter Location Date Provider Diagnosis Fabrice Crain III, MD [address] [place] [address] [place] [address] 04/05/2024 Fabrice Crain Malignant neoplasm o f lower lobe of left lung C34.32 ; Former smoker Z87.891 ; Gastroesophageal reflux disease without esophagitis K21.9 ; Essential hypertension I10 ; Type 2 diabetes mellitus with other specified complication E11.69 ; Hyperlipidemia, unspecified E78.5 and Age-related osteoporosis without current pathological fracture M81.0 Fabrice Crain III, MD [address] [place] [address] [place] [address] 10/04/2024 Fabrice Crain Malignant neoplasm o f [...] Details Provider Name:Fabrice Brandtrne, 04/11/2025 10:00:00 AM, [address] [place] [address] DR [facility] [place], [place], [address], Insurance Providers Payer Name Payer Address Payer Phone Subscriber Number Group Number Insured Name Patient Relationship to Insured Coverage Start Date Coverage End Date MEDICARE NGS [address] [place] [phone] [id number] TREY TEE Self - patient is the insured [address] [facility] [phone] [id number] GIANNATREY Fairchild Self - patient is the insured Medical (General) History Medical History History ICD Code Essential hypertension I10 Fibromyalgia M79.7 hiatal hernia hyperlipidemia osteoarthritis diabetes mellitus essential hypertension osteoporosis GERD overweight former smoker Stage I adenocarcinoma of th e lung, Left lower lobe, April 2023, [facility] Surgical History Surgery Date(Month/Year) Lung surgery, Left lower lobe 04/07/2023 colonoscopy, Dr. Blanchard 2013 Bladder suspention 1992 choleycystectomy 2005 Tubal ligation 1985 Hospitalization History Reason Date(Month/Year) Hospitalization for ' s parkinson's, alzheimer's, and dementia - september, current year
--- OUTSIDE RECORDS SUMMARY | 2025-02-03 18:56 | XMS_ITS | Clinical Summary ---
Author Organization [facility] Address [address] [place] [address] Phone Care Team Providers Care Wall Scraper Name Role Phone Dannie Huang MD Primary Care Provider [phone] Allergies Active Allergy Reactions Criticality Noted Date [...] general and how their size shape and loom changer time affect her level of suspicion [...] N/A PROCEDURE: HISTORICAL COLONOSCOPY ESOPHAGOGASTRODUODENOSCOPY N/A PROCEDURE: [place] ESOPHAGOGASTRODUODENOSCOPY TRANSORAL DIAGNOSTIC CHOLECYSTECTOMY N/A PROCEDURE: HISTORICAL CHOLECYSTECTOMY TUBAL LIGATION PROCEDURE: HISTORICAL TUBAL LIGATION OTHER SURGICAL HISTORY 04/07/2023 Left PROCEDURE: [place] THORACOSCOPY W/THERA WEDGE RESEXN INITIAL UNILAT; COMMENT: [...] no dule DM2 (diabetes mellitus, type 2) ([facility] V24, [facility] V28) DX:DM2 (diabetes mellitus, t ype 2) ([facility]) Anemia DX:Anemia Mild intermittent asthma, uncomplicated [...] Test 12/29/2023 Depression Screening 06/05/2024 COVID-19 Vaccine ( - 2023-2 5 season) 2024 03/16/2024, 07/05/2021, [...] age to complete this topic Insurance MEDICARE [facility] Care Teams Wall Scraper Relationship Specialty Start Date End Date Dannie Huang MD [address] [place] [address] [address] ROSA Garner PCP - General 03/22/18
--- OUTSIDE RECORDS SUMMARY | 2025-02-03 18:56 | XMS_ITS | Patient Health Record ---
[facility] Organization [facility] Address [address] [place] [address] Care Team Providers Care Spot Welder Line Name Role Phone OmarKarin castro Primary Care Provider UnavailMalik Cain Unavailable [phone] Param Syed Unavailable [phone] Radha Weir Unavailable [phone] Allergies Allergen (clinical drug ingredient) Drug/Non Drug [...] Problem Acquired hammer toe of right foot ([id number] ) Other hammer toe(s) (acquired), right foot (M20.41) Active confirmed Problem Acquired hammer toe of left foot ([id number] ) Other hammer toe(s) (acquired), left foot (M20.42) Active confirmed Problem Polyneuropathy due to type 2 diabetes mellitus (699845822) Type 2 diabetes mellitus with diabetic polyneuropathy (E11.42) Active confirmed Vital Signs Blood pressure diastolic 65 mm Hg 01/10/2025 Height 5 ft 4 in in 01/10/2025 Blood pressure systolic 120 mm Hg 01/10/2025 Weight 157 lbs 01/10/2025 BMI 26.95 kg/m2 01/10/2025 Procedures Procedure Date Ordered Date Performed Result Body Sit e 51812-AMUCKUZ NAIL, 6 OR MORE 06/03/2024 N/A 84127-REEB SKIN LESIONS, OVER 4 06/03/2024 N/A 63154-ZLQIFXF NAIL, 6 OR MORE 10/08/2024 N/A 31285-HCXM SKIN LESIONS, OVER 4 10/08/2024 N/A 27016-FWPTMTI NAIL, 6 OR MORE 01/10/2025 N/A 79088-SQPK SKIN LESIONS, OVER 4 01/10/2025 N/A Encounters Encounter Location Date Provider Diagnosis [address] [address] 02/22/2024 Param Syed Tinea unguium B35.1 ; Type 2 diabetes mellitus with diabetic polyneuropathy E11.42 ; Pain in right toe(s) M79.674 ; Pain in left toe(s) M79.675 ; Hallux valgus (acquired), left foot M20.12 ; Hallux valgus (acquired), right foot M20.11 ; Ingrowing nail L60.0 ; Primary osteoarthritis, left ankle and foot M19.072 and Metatarsalgia, right foot M77.[address] [address] 06/03/2024 Radha Weir Type 2 diabetes mellitus with diabetic polyneuropathy E11.42 and Tinea unguium B35.[address] [address] 10/08/2024 Malik Clements Type 2 diabetes mellitus with diabetic polyneuropathy E11.42 ; Tinea unguium B35.1 ; Other hammer toe(s) (acquired), right foot M20.41 and Other hammer toe(s) (acquired), left foot M20.42 [facility] [address] [address] 01/10/2025 Malik Clements Type 2 diabetes mellitus with diabetic polyneuropathy E11.42 and Tinea unguium B35.[address] [address] 09/24/2024 Radha Weir Assessments Encounter Date Diagnosis [...] X ray : Ankle, left 3V 11/15/2018 71512-VFIKVET NAIL, 6 OR MORE 05/17/2018 43937-OTUJICL NAIL, 6 OR MORE 06/03/2024 43469-PJZIPDH NAIL, 6 OR MORE 10/08/2024 94715-IXFYFGU NAIL, 6 OR MORE 01/10/2025 02411-LUVNUVC NAIL, 6 OR MORE 02/23/2011 69406-ZCRYOZU NAIL, 6 OR MORE 05/11/2011 59959-MRAEYGG NAIL, 6 OR MORE 07/20/2011 46532-LXGXRBH NAIL, 6 OR MORE 10/03/2011 44554-SHVFXQU NAIL, 6 OR MORE 12/12/2011 80715-MKNKGYZ NAIL, 6 OR MORE 02/22/2012 10169-FFNAWWH NAIL, 6 OR MORE 05/09/2012 75555-FPWKRWX NAIL, 6 OR MORE 08/08/2012 51452-VXDGQKE NAIL, 6 OR MORE 11/08/2012 92029-PKIUZDJ NAIL, 6 OR MORE 01/30/2013 70856-PMTIWJE NAIL, 6 OR MORE 04/24/2013 62236-NFNBMHZ NAIL, 6 OR MORE 07/03/2013 79943-MAMIJPE NAIL, 6 OR MORE 09/16/2013 88877-IDEFBZG NAIL, 6 OR MORE 12/23/2013 94111-ZSOTAZA NAIL, 6 OR MORE 03/27/2014 07111-PDIQCMS NAIL, 6 OR MORE 06/09/2014 43544-MBTGSVM NAIL, 6 OR MORE 08/18/2014 35874-VYSNABP NAIL, 6 OR MORE 10/29/2014 62495-DOLNAAR NAIL, 6 OR MORE 01/12/2015 24233-ORPULLK NAIL, 6 OR MORE 04/13/2015 07400-VUVBNQF NAIL, 6 OR MORE 06/29/2015 05398-JJITWUK NAIL, 6 OR MORE 09/14/2015 45113-IGMEBKG NAIL, 6 OR MORE 12/17/2015 01433-KDKICAG NAIL, 6 OR MORE 03/17/2016 69120-COVKKRV NAIL, 6 OR MORE 06/16/2016 98140-BUKQSYL NAIL, 6 OR MORE 08/18/2016 68613-EZMYDUH NAIL, 6 OR MORE 11/16/2016 05256-TTYDILK NAIL, 6 OR MORE 02/16/2017 59917-CKWYSQI NAIL, 6 OR MORE 05/18/2017 08077-YUMFDCH NAIL, 6 OR MORE 08/17/2017 76834-LLEZBGN NAIL, 6 OR MORE 11/16/2017 36162-IADSKNO NAIL, 6 OR MORE 02/15/2018 41667-Jsymepto Plate 05/18/2017 23281-Cggdpbse Plate 10/29/2014 91115-Vnknempt Plate 08/18/2014 34272-Adweyigd Plate 06/09/2014 59425-Qkfmkkbz Plate 03/27/2014 28924-OBMH SKIN LESIONS, OVER 4 01/11/20 25 34677-TUWF SKIN LESIONS, OVER 4 10/09/19 25 40541-RJYZ SKIN LESIONS, OVER 4 06/03/20 24 76458-GCMI SKIN LESIONS, OVER 4 08/17/19 19 36290-BSVR SKIN LESIONS, OVER 4 11/16/19 19 53157-UGVY SKIN LESIONS, OVER 4 03/14/20 19 74593-HQES SKIN LESIONS, OVER 4 06/17/19 20 11305-VAKL SKIN LESIONS, OVER 4 10/17/19 20 26978-VENP SKIN LESIONS, OVER 4 01/22/20 20 73784-UOAY SKIN LESIONS, OVER 4 04/22/20 20 47049-BDTR SKIN LESIONS, OVER 4 07/29/19 21 29605-AYNP SKIN LESIONS, OVER 4 10/29/19 21 33609-SZEL SKIN LESIONS, OVER 4 01/28/20 21 88182-WWDR SKIN LESIONS, OVER 4 04/28/20 21 56484-PTJV SKIN LESIONS, OVER 4 08/05/19 22 41139-KZIX SKIN LESIONS, OVER 4 06/09/19 15 24488-MXII SKIN LESIONS, OVER 4 03/27/20 14 22934-FMCM SKIN LESIONS, OVER 4 12/24/19 14 35281-KIOF SKIN LESIONS, OVER 4 09/17/19 14 04967-HORT SKIN LESIONS, OVER 4 07/03/19 14 83108-AOAJ SKIN LESIONS, OVER 4 04/24/20 13 58883-KZVO SKIN LESIONS, OVER 4 01/31/20 13 35007-SFQR SKIN LESIONS, OVER 4 11/09/19 13 26150-IKEZ SKIN LESIONS, OVER 4 08/09/19 13 04653-QSLR SKIN LESIONS, OVER 4 05/09/20 12 67463-IPCI SKIN LESIONS, OVER 4 02/22/20 12 95749-APLE SKIN LESIONS, OVER 4 12/12/19 12 54884-WVUF SKIN LESIONS, OVER 4 10/03/19 12 12321-FXEW SKIN LESIONS, OVER 4 07/20/19 12 77053-CYNK SKIN LESIONS, OVER 4 05/11/20 11 96856-JSIZ SKIN LESIONS, OVER 4 02/24/20 11 50895-GUQF SKIN LESIONS, OVER 4 08/19/19 15 29344-ZNAV SKIN LESIONS, OVER 4 10/30/19 15 36241-FOXV SKIN LESIONS, OVER 4 04/13/20 15 65867-VSRW SKIN LESIONS, OVER 4 01/13/20 15 27638-CECQ SKIN LESIONS, OVER 4 03/17/20 16 22955-KGXI SKIN LESIONS, OVER 4 12/17/19 16 02444-XOYY SKIN LESIONS, OVER 4 09/14/19 16 05153-AQXJ SKIN LESIONS, OVER 4 06/29/19 16 75943-HXLD SKIN LESIONS, OVER 4 05/18/20 17 96000-TALL SKIN LESIONS, OVER 4 02/17/20 17 80115-LNLM SKIN LESIONS, OVER 4 08/19/19 17 12571-NPRI SKIN LESIONS, OVER 4 11/17/19 17 80341-FJTO SKIN LESIONS, OVER 4 06/16/19 17 04718-IRGC SKIN LESIONS, OVER 4 05/17/20 18 67119-UMYL SKIN LESIONS, OVER 4 02/16/20 18 74242-WTVD SKIN LESIONS, OVER 4 11/17/19 18 85750-BQES SKIN LESIONS, OVER 4 08/18/19 18 19741- Removal of Foreign Body, Subcut 0 06/17/2019 Next Appt Details Provider Name:Malik Clements , 05/09/2025 11:45:00 AM, [address] [facility], [place], [address], Insurance Providers Payer Name Payer Address Payer Phone Subscriber Number Group Number Insured Name Patient Relationship to Insured Coverage Start Date Coverage End Date Medicare National [employer] [address] [facility] [place] [address] [id number] Julienne Chand Self - patient is the insured [facility] [address] [facility] [place] [address] [id number] Julienne Chand Self - patient is [...] [facility] - Fell / concousin 01/07/17 [facility] for 2 day s roxie , for chest pain, high blood pressure and a head bump 03/2013
[2025-02-03 19:10] LABS: MANUAL DIFF FLAG NO
[2025-02-03 19:11] LABS: Hematocrit 34.1 % (37.0-47.0); Hemoglobin 12.3 g/dl (12.0-16.0); Imm Gran Abs Auto 0.01 X10*3/uL (0.00-0.03); Imm Gran Pct Auto 0.1 % (0.0-0.4); Lymphocytes Absolute Auto 2.9 X10*3/uL (1.2-4.9); Mean Corpuscular HGB Conc 36.1 g/dl (31.0-35.0); Mean Corpuscular Hemoglobin 27.5 pg (27.0-33.0); Mean Corpuscular Volume 76.3 fL (80.0-98.0); NRBC Abs Auto 0.000 X10*3/uL (0.0-0.012); NRBC Pct Auto 0.0 /100WBC (0.0-0.2); Platelet Count 265 X10*3/uL (160-400); Red Blood Count 4.47 X10*6/uL (4.20-5.50); White Blood Count 6.8 X10*3/uL (4.8-10.8)
[2025-02-03 19:22] VITALS: BP 208/87; PULSE 80; RESP 18; O2SAT 98
[2025-02-03 19:24] LABS: Anion Gap 12 (12-20); Blood Urea Nitrogen 15 mg/dL (9-16); Calcium 9.0 mg/dL (8.4-10.2); Carbon Dioxide 24 mmol/L (22-29); Chloride 108 mmol/L (96-108); Creatinine Clr Calc Pharmacy 66.7; Estimated Glomerular Filt Rate > 60; Potassium 3.9 mmol/L (3.3-5.1); Sodium 140 mmol/L (135-145)
[2025-02-03 19:33] LABS: Troponin-I High Sensitivity 17.7 ng/L (<3.5-17.0)
[2025-02-03 20:48] VITALS: BP 176/73; PULSE 71; RESP 20; TEMP 36.6; O2SAT 97
--- NOTE | 2025-02-03 21:40 | ED.GENADULT ---
HPI - General Adult General Chief complaint: General Medical Stated complaint: HTN Time Seen by Provider: 02/03/25 21:40 Source: patient, family and EMS Mode of arrival: EMS Limitations: no limitations History of Present Illness ED Provider: Dr. Milla Hagen HPI narrative: 79-year-old female with a history of hypertension, qzd-nbbbdkl-kcbdakftf diabetes, aortic stenosis presenting with headache and vision changes that began around 3:00 p.m. this afternoon. Patient describes a right-sided occipital headache that radiates into her right frontal scalp that has been off and on for several weeks. Admits that today she developed a headache and it was associated with total vision loss in the right eye. Admits that the vision loss lasted about 10 minutes and then when her vision started to come back, she had flashes of light and blurriness in that eye. She checked her blood pressure at home and noted it to be extremely elevated at 226/110. Denies associated numbness/tingling/weakness of the extremities. No difficulty with word finding or facial droop. Of note, patient was recently admitted at this hospital for hypertensive urgency and chest pain, had a coronary CTA which reportedly did not show any significant CAD. Otherwise patient denies any changes in her chronic dry cough, no reported fever, chest pain, difficulty breathing, neck pain, sore throat, nausea or vomiting, bowel changes, urinary complaints, lower extremity edema or pain. Related Data Home Medications ?Medication ?Instructions ?Recorded ?Confirmed pravastatin 80 mg tablet 80 mg PO DAILY 02/29/20 01/23/25 benzonatate 100 mg capsule 100 mg PO Q8H PRN cough 10/03/24 01/23/25 fluticasone propionate 110 2 puff inhalation BID 12/05/24 01/23/25 mcg/actuation HFA aerosol inhaler azelastine 137 mcg (0.1 %) nasal 2 spray intranasal DAILY PRN 01/23/25 01/23/25 spray alergies lorazepam 1 mg tablet 0.5 mg PO BID@0900,1630 01/23/25 01/23/25 lorazepam 1 mg tablet 2 mg PO BEDTIME Anxiety 01/23/25 01/23/25 sertraline 25 mg tablet 25 mg PO DAILY 01/23/25 01/23/25 aspirin 81 mg tablet 81 mg PO DAILY 08/26/25 loratadine 10 mg tablet (Claritin) 10 mg PO DAILY PRN 01/29/25 Previous Rx's ?Medication ?Instructions ?Recorded albuterol sulfate 90 mcg/actuation 2 puff PO Q4-6H PRN for dyspnea #1 12/15/22 aerosol inhaler hydralazine 25 mg tablet 25 mg PO BID 90 days #180 tabs 11/13/24 FreeStyle Lite Strips (blood sugar #100 ea 01/24/25 diagnostic) blood sugar diagnostic #10 ea 01/24/25 blood-glucose meter #1 ea 01/24/25 carvedilol 3.125 mg tablet 6.25 mg (2 x 3.125 mg) PO BID 30 01/24/25 days #120 tabs famotidine 20 mg tablet 20 mg PO BID 30 days #60 tabs 01/24/25 lancets 28 gauge #100 ea 01/24/25 lisinopril 2.5 mg tablet 2.5 mg PO DAILY 30 days #30 tabs 01/29/25 Allergies Allergy/AdvReac Type Severity Reaction Status Date / Time niacin (Niacin) Allergy Mild RASH Verified 02/03/25 18:29 lactose (Lactose) AdvReac Mild DIARRHEA Verified 02/03/25 18:29 atorvastatin (Lipitor) AdvReac Unknown Unknown Verified 02/03/25 18:29 celecoxib (Celebrex) AdvReac Unknown Unknown Verified 02/03/25 18:29 simvastatin AdvReac Unknown Unknown Verified 02/03/25 18:29 Review of Systems Review of Systems: as per HPI, full review of systems performed and negative but for the above mentioned pertinent positives and negatives. [facility] Past Medical History Medical History Peptic ulcer Lung cancer Psoriasis Type 2 diabetes mellitus GERD (gastroesophageal reflux disease) Osteopenia Pulmonary nodule Depression Fibromyalgia IBS (irritable bowel syndrome) High cholesterol HTN (hypertension) Chronic cough Allergic rhinitis Cough due to bronchospasm Surgical History Hx of bladder repair surgery S/P lobectomy of lung History of tubal ligation History of esophagogastroduodenoscopy (EGD) History of laparoscopic cholecystectomy History of colonoscopy (~10/27/23) Family History Family History Father Myocardial infarction Mother Diabetic coma Sister No problems noted. Brother GI bleed Social History Social History Housing: Apartment Alcohol intake: never Patient Tobacco Use Status: Former Tobacco user Years Smoked: (Smoked 1/2ppd from 1962 to 1981 - 10PYH) Smoked in Last 30 Days: No e-Cigarette/Vaping Use: Never Used Use of substances other than those prescribed or required for medical reasons: No Advance Directives: No Advance Directives Information Provided: Yes Do you have a plan to hurt others: No Plan service: No Current occupational status: employed and retired Cognitive needs: No Hearing needs: No Vision needs: Yes (Rx glasses) Physical Exam ED Exam Exam: GENERAL: Chronically ill-appearing, conversant, no acute distress. SKIN: Normal skin color for ethnicity, warm, dry, no rashes noted. HEENT: Normocephalic, atraumatic, no stridor, posterior oropharynx nonerythematous, EOMI, PERRLA. NECK: Soft, supple, full ROM, midline structures nontender, no step-offs, no deformities, no lymphadenopathy. CHEST: Heart regular rate and rhythm, no murmurs, symmetric chest rise and fall. PULMONARY: Clear to auscultation bilaterally, no labored breathing, no wheezes/rhales/ rhonchi. ABDOMINAL: Soft, nondistended, nontender, positive bowel sounds in all quadrants. : Deferred. MUSCULOSKELETAL: Normal tone, full range of motion, no deformities, no peripheral edema. NEURO: Alert and oriented to person, CN II through XII intact, no focal neurologic deficits. PSYCHIATRIC: Flat affect, fluid speech, appropriate demeanor. Vital Signs: Vital Signs - 24 hr 02/03/25 18:25 02/03/25 19:22 02/03/25 20:48 Temperature 98.1 F 97.8 F Pulse Rate 76 80 71 Respiratory Rate 18 18 20 Blood Pressure 189/85 H 208/87 H 176/73 H Pulse Oximetry 95 98 97 Oxygen Delivery Method Room Air Room Air Room Air 02/03/25 23:32 Temperature Pulse Rate 68 Respiratory Rate 18 Blood Pressure 157/66 H Pulse Oximetry 96 Oxygen Delivery Method Room Air BMI result Body Mass Index 28.5 Medications Administered Discontinued Medications Generic Name Dose Route Start Last Admin Trade Name Eitan PRN Reason Stop Dose Admin Acetaminophen 650 mg 02/03/25 20:57 02/03/25 21:04 Acetaminophen 325 Mg Tablet PO 02/03/25 20:58 650 mg ONCE ONE Administration Iohexol 100 ml 02/03/25 23:11 02/03/25 23:25 Iohexol 350 Mg/Ml 100 Ml Infus..Btl IV 02/03/25 23:12 70 ml ONCE ONE Administration Morphine Sulfate 4 mg 02/03/25 22:30 02/03/25 22:49 Morphine Sulfate 4 Mg/Ml Cartridge IVPUSH 02/03/25 22:31 4 mg ONCE ONE Administration Protocol Ondansetron HCl 4 mg 02/03/25 22:30 02/03/25 22:49 Ondansetron Hcl 4 Mg/2 Ml Vial IVPUSH 02/03/25 22:31 4 mg ONCE ONE Administration Medical Decision Making Medical Decision Making [facility] Narrative: Patient presents with a chief complaint of headache and vision changes. The differential diagnosis on this patient includes but is not limited to TIA or CVA, migraine headache, tension headache, cluster headache, subarachnoid hemorrhage, dissection, venous thrombosis, meningitis, sinusitis, bleeding or tumor. Based on history and physical exam, appropriate work-up was initiated. Medicated with Tylenol and morphine for headache. Admitted for further care and evaluation of probable TIA/CVA rule out. Differential Diagnosis Differential Diagnoses: The differential diagnosis associated with the presentation includes (As above) Admission/Observation Consideration of admission/observation: Escalation of care including admission/observation considered Consult Healthcare Provider Management of the patient was discussed with: Hospitalist Lab Data [facility] Lab Attestation statement: I reviewed the patient's lab results. 02/03/25 19:06 02/03/25 19:06 Labs: Lab Results 02/03/25 Range/Units 19:06 WBC 6.8 (4.8-10.8) X10*3/uL RBC 4.47 (4.20-5.50) X10*6/uL Hgb 12.3 (12.0-16.0) g/dl Hct 34.1 L (37.0-47.0) % MCV 76.3 L (80.0-98.0) fL MCH 27.5 (27.0-33.0) pg MCHC 36.1 H (31.0-35.0) g/dl RDW 14.8 (11.0-16.0) % Plt Count 265 (160-400) X10*3/uL MPV 9.8 (9.4-12.3) fL Immature Gran % (Auto) 0.1 (0.0-0.4) % Neut % (Auto) 48.4 (45-73) % Lymph % (Auto) 43.2 H (20-40) % [place] % (Auto) 7.0 (2-11) % Eos % (Auto) 0.9 (0-4) % Baso % (Auto) 0.4 (0-2) % Lymph # (Auto) 2.9 (1.2-4.9) X10*3/uL [place] # (Auto) 0.5 (0.1-1.2) X10*3/uL Eos # (Auto) 0.1 (0.0-0.4) X10*3/uL Baso # (Auto) 0.0 (0.0-0.2) X10*3/uL Abs Immat Gran (auto) 0.01 (0.00-0.03) X10*3/uL Absolute Neuts (auto) 3.3 (2.0-8.3) x10*3/uL Absolute Nucleated RBC 0.000 (0.0-0.012) X10*3/uL Nucleated RBC % (auto) 0.0 (0.0-0.2) /100WBC Sodium 140 (135-145) mmol/L Potassium 3.9 (3.3-5.1) mmol/L Chloride 108 (96-108) mmol/L Carbon Dioxide 24 (22-29) mmol/L Anion Gap 12 (12-20) BUN 15 (9-16) mg/dL Creatinine 0.69 (0.5-1.4) mg/dL Estim Creat Clear Calc 66.7 Estimated GFR > 60 Random Glucose 162 H (60-115) mg/dL Calcium 9.0 (8.4-10.2) mg/dL Magnesium 2.0 (1.6-2.6) mg/dL Troponin I High Sens 17.7 H D (<3.5-17.0) ng/L TSH 0.41 (0.32-4.0) uIU/mL Independent Interpretation I performed an independent interpretation of an: EKG and Plain X-Ray Interpretation: My independent interpretation of the ECG reveals normal sinus rhythm with rate of 80, normal axis, normal intervals, no ST elevations or depressions to suggest ischemic changes, relatively unchanged from previous on 01/23/2025. My independent interpretation of the chest x-ray reveals no consolidations, pulmonary edema, pleural effusion, pneumothorax, obvious bony abnormalities. Radiology Impression Discussion of test interpretation with radiology: I have reviewed the radiologist's reading. Radiologist Impression: CT angiography of head and neck with contrast. With MIP MPR Postprocessing. And with noncontrast head CT Comparison: None provided Findings: Head CT without contrast: No acute intracranial hemorrhage. No midline shift or hydrocephalus. No large arterial territorial infarction by CT. Mild white matter lesions are nonspecific and likely due to small-vessel ischemic disease. Mild/minimal volume loss is generalized. Mucosal thickening of the imaged paranasal sinuses are multifocal. Imaged mastoid air cells are well aerated. No acute skull fracture. CTA head: Calcifications include bilateral carotid siphons with mild/minimal stenosis. No ICA or M1 occlusion. Asymmetric branching of the proximal ACAs and proximal MCAs. Anterior communicating artery is patent (image 298 of series 10). The right vertebral artery is dominant. The basilar artery is patent. Proximal measurement advisor are unremarkable for technique and venous contamination. No proximal intracranial arterial aneurysm. Neck: Mild to moderate (25-50%) stenosis of the proximal right ICA with small partial carotid web (imaged 597 of series 10). Calcified and noncalcified plaque involving bilateral carotid bulbs and bilateral carotid bifurcations. No significant stenosis of the left internal carotid artery by NASCET criteria. The right vertebral artery is dominant. Tortuosity of the multiple vessels noted. Calcified and noncalcified plaque include imaged aorta and its branches with common origin of the brachiocephalic artery and left common carotid artery. These are partly obscured by artifacts including metal streak artifacts. Mild emphysematous changes of the imaged lung apices. Disc osteophyte complexes and facet arthropathy are multifocal in the imaged spine. Mild retrolisthesis of the C4-C5 with mild spinal canal stenosis by CT. IMPRESSION: Head CT without contrast: No acute intracranial abnormality by CT. CTA head: 1. No ICA or M1 occlusion. 2. The basilar artery is patent. Neck: 1. 25-50% stenosis of right ICA by NASCET criteria. 2. No significant stenosis of the left internal carotid artery by NASCET criteria. 3. The right vertebral artery is dominant 4. Multifocal atherosclerosis. This document has been electronically signed by: Gibran Michaud MD on 02/04/2025 00:38:34 Independent Historian Clinical information obtained from an independent historian. History obtained from or confirmed by: Other (Son) External Record Review External record reviewed: Inpatient record Chronic Conditions Patient?s care impacted by: Diabetes and Hypertension Discharge Plan Discharge Clinical Impression: Headache, Transient visual loss of right eye, Episode of hypertension Patient Disposition: Admitted As Inpatient Print Language: Mongolian
[2025-02-03 23:10] LABS: Magnesium 2.0 mg/dL (1.6-2.6)
[2025-02-03] MEDS: iohexoL 350 MG/ML 100 ML INFUS..BTL IV (23:25)
[2025-02-03 23:26] LABS: Thyroid Stimulating Hormone 0.41 uIU/mL (0.32-4.0)
[2025-02-03 23:32] VITALS: BP 157/66; PULSE 68; RESP 18; O2SAT 96
[2025-02-04] VITALS (12 sets, daily range): BP systolic 88–209; BP diastolic 52–86; PULSE 68–78; RESP 16–20; TEMP 36.1–36.7; O2SAT 93–96; BMI 27.8
--- NOTE | 2025-02-04 02:07 | PM.IMHP ---
History of Present Illness Date of Service: 02/04/25 Attending physician on admission: Fiona Salmeron Chief Complaint: HTN, Headache, visual changes Patient is a 79-year-old female with past medical history NIDDM, HTN, Cataracts, Allergic Rhinitis, insomnia, systolic murmur, depression/anxiety with grieving since the loss of her 05/2024, hyperlipidemia, recent chest pain and nuclear stress test, fibromyalgia, GERD, lung cancer with left lung lobectomy in remission, IBS-D, cholecystectomy, tubal ligation and bladder suspension presents to the emergency department having been brought in by ambulance after experiencing significant headache with loss of vision in the right eye that is currently resolved. Patient's symptoms started approximately 16:00. Patient states initially her right eye went dark while watching TV. Patient's vision then returned and she started to see stars and then vision became fuzzy. Patient had checked her blood pressure at home and it was 190/103. Patient initially called her daughter and the daughter said to call her doctor. Once patient called the doctor they told her to call 911 and be seen in the emergency department. Patient arrived at the ED at 16:50 with visual changes resolved but headache and elevated blood pressure persisted. Patient denied any chest pain or shortness breast during this time. Patient was seen 1 week ago for chest pain and hypertension. As an outpatient for follow-up patient had a nuclear stress study this past Monday and her anxiety has increased since with all these new appointments and outpatient follow-up. Patient states when her anxiety increases, her blood pressure also rises. Pt also lost her in May 2024 after 40 yrs of marriage and pt is still grieving his loss, adding to her anxiety. BP has since improved and pt received morphine and no antihypertensives. Pt reports only a mild BENSON after tylenol and visual changes have completely resolved. Pt denies hx of retinal detachment. Pt requesting ativan to help her rest, which she takes at home. Pt denies internal devices including PPM and ICD for planned MRI of brain in AM. Pt being admitted with no obvious deficits. Review of Systems Review of Systems: Patient now reporting mild headache in the frontal area with no current visual issues. Patient denies any chest pain, shortness breath at rest, abdominal pain, nausea or vomiting. Patient has chronic diarrhea secondary to IBS-D. Patient denies any unexplained weight loss. Patient denies any recent falls. Patient reports that she still drives, lives alone and does not use an assistive device for ambulation. Patient denies pain in the right or left eye. [facility] Medical History Peptic ulcer Lung cancer Psoriasis Type 2 diabetes mellitus GERD (gastroesophageal reflux disease) Osteopenia Pulmonary nodule Depression Fibromyalgia IBS (irritable bowel syndrome) High cholesterol HTN (hypertension) Chronic cough Allergic rhinitis Cough due to bronchospasm Cognitive capacity: Alert and orientated x3 Functional capacity: independent ambulation Patient : No Family History Father Myocardial infarction Mother Diabetic coma Sister No problems noted. Brother GI bleed Surgical History Hx of bladder repair surgery S/P lobectomy of lung History of tubal ligation History of esophagogastroduodenoscopy (EGD) History of laparoscopic cholecystectomy History of colonoscopy (~10/27/23) Social History Housing: Apartment Alcohol intake: never Patient Tobacco Use Status: Former Tobacco user Years Smoked: (Smoked 1/2ppd from 1962 to 1981 - 10PYH) Smoked in Last 30 Days: No e-Cigarette/Vaping Use: Never Used Use of substances other than those prescribed or required for medical reasons: No Advance Directives: No Advance Directives Information Provided: Yes Do you have a plan to hurt others: No Plan Patient : No service: No Current occupational status: employed and retired Cognitive needs: No Hearing needs: No Vision needs: Yes (Rx glasses) Ebola Risk: Travel/Contact With Anyone From Affected Area/s: No Has Patient Experienced Ebola Symptoms: No Meds Allergies Allergy/AdvReac Type Severity Reaction Status Date / Time niacin (Niacin) Allergy Mild RASH Verified 02/03/25 18:29 lactose (Lactose) AdvReac Mild DIARRHEA Verified 02/03/25 18:29 atorvastatin (Lipitor) AdvReac Unknown Unknown Verified 02/03/25 18:29 celecoxib (Celebrex) AdvReac Unknown Unknown Verified 02/03/25 18:29 simvastatin AdvReac Unknown Unknown Verified 02/03/25 18:29 Active Medications: Current Medications Acetaminophen (Acetaminophen 325 Mg Tablet) 650 mg PO Q6H PRN PRN Reason: Pain, Mild 1-3,fever,headache Albuterol/Ipratropium (Albuterol/Iprat 2.5/0.5mg 3 Ml Ampul.Neb) 3 ml INHALE Q4H PRN PRN Reason: Shortness of Breath/Wheezing Calcium Carbonate (Calcium Carbonate 750 Mg Tab.Chew) 750 mg PO Q4H PRN PRN Reason: Heartburn Enoxaparin Sodium (Enoxaparin Sodium 40 Mg/0.4 Ml Syringe) 40 mg SUBCUT Q24H JEFF Lorazepam (Lorazepam 0.5 Mg Tablet) 0.5 mg PO ONCE ONE Stop: 02/04/25 02:07 Magnesium Hydroxide (Milk Of Magnesia 30 Ml Oral.Susp) 30 ml PO DAILY PRN PRN Reason: Constipation Melatonin (Melatonin 3 Mg Tablet) 6 mg PO BEDTIME PRN PRN Reason: Insomnia Ondansetron HCl (Ondansetron Hcl 4 Mg/2 Ml Vial) 4 mg IVPUSH Q8H PRN PRN Reason: Nausea and Vomiting Polyethylene Glycol (Polyethylene Glycol 3350 17 Gm Powd.Pack) 17 gm PO DAILY PRN PRN Reason: Constipation Senna (Sennosides 8.6 Mg Tablet) 17.2 mg PO BEDTIME JEFF Sodium Chloride (0.9 % Sodium Chloride Flush 3 Ml Syringe) 3 ml IVFLUSH QSHIFT JEFF Home Medications ?Medication ?Instructions ?Recorded ?Confirmed ?Last Taken ?Type pravastatin 80 mg tablet 80 mg PO DAILY 02/29/20 01/23/25 01/23/25 History benzonatate 100 mg capsule 100 mg PO Q8H PRN cough 10/03/24 01/23/25 01/23/25 History fluticasone propionate 110 2 puff inhalation BID 12/05/24 01/23/25 01/23/25 History mcg/actuation HFA aerosol inhaler azelastine 137 mcg (0.1 %) nasal 2 spray intranasal DAILY PRN 01/23/25 01/23/25 01/23/25 History spray alergies lorazepam 1 mg tablet 0.5 mg PO BID@0900,1630 01/23/25 01/23/25 Unknown History lorazepam 1 mg tablet 2 mg PO BEDTIME Anxiety 01/23/25 01/23/25 01/23/25 History sertraline 25 mg tablet 25 mg PO DAILY 01/23/25 01/23/25 01/23/25 History aspirin 81 mg tablet 81 mg PO DAILY 01/28/25 Unknown History loratadine 10 mg tablet (Claritin) 10 mg PO DAILY PRN 01/29/25 Unknown History Physical Exam Vital Signs and Narrative: Vital Signs: Last Vital Signs Temp 97.8 F 02/03/25 20:48 Pulse 68 02/03/25 23:32 Resp 18 02/03/25 23:32 BP 157/66 H 02/03/25 23:32 Pulse Ox 96 02/03/25 23:32 O2 Del Method Room Air 02/03/25 23:32 BMI result Body Mass Index 28.5 Alert and orientated X3, able to give good history. Neuro: CN II-X11 intact, no deficits, visual acuity intact m no facial droops noted no ptosis in B eyes, red reflex present bilateral EYES: PERRLA, EOM intact ENT: hearing intact, no issues with swallowing, uvula midline, lips moist, nares patent no epistaxis Cardiac: S1 S2 RRR, systolic murmur, no JVD, no edema in Lower ext Pulmonary: lungs clear to auscultation B Abdominal: BS active in all 4 quadrants, no guarding, tenderness, rebounding MSK: strength 4/5 upper and lower extremities : no CVA tenderness no bladder distension Extremities: no edema in lower extremities, PT and DP pulses palpable +2 Psych: mood stable, judgement and insight good Skin: Intact Results Labs 02/04/25 05:01 02/04/25 05:01 Labs: Laboratory Results - last 24 hr 02/03/25 19:06 MCV 76.3 L MCH 27.5 MCHC 36.1 H RDW 14.8 Plt Count 265 MPV 9.8 Immature Gran % (Auto) 0.1 Neut % (Auto) 48.4 Lymph % (Auto) 43.2 H Kinney % (Auto) 7.0 Eos % (Auto) 0.9 Baso % (Auto) 0.4 Lymph # (Auto) 2.9 Kinney # (Auto) 0.5 Eos # (Auto) 0.1 Baso # (Auto) 0.0 Abs Immat Gran (auto) 0.01 Absolute Neuts (auto) 3.3 Absolute Nucleated RBC 0.000 Nucleated RBC % (auto) 0.0 Anion Gap 12 Estim Creat Clear Calc 66.7 Estimated GFR > 60 Random Glucose 162 H Calcium 9.0 Magnesium 2.0 TSH 0.41 ECG Attestation: I personally reviewed and interpreted this ECG as follows: (NSR no ischemic changes, normal Qtc ) Prior ECG tracings: available for review Imaging Radiologist's Impressions: HEAD/Neck CTA CTA head: 1. No ICA or M1 occlusion. 2. The basilar artery is patent. Neck: 1. 25-50% stenosis of right ICA by NASCET criteria. 2. No significant stenosis of the left internal carotid artery by NASCET criteria. 3. The right vertebral artery is dominant 4. Multifocal atherosclerosis. Assessment and Plan (1) TIA (transient ischemic attack): Status: Acute Plan Patient is a 79-year-old female with past medical history NIDDM, HTN, Cataracts, Allergic Rhinitis, insomnia, systolic murmur, depression/anxiety with grieving since the loss of her 05/2024, hyperlipidemia, recent chest pain and nuclear stress test, fibromyalgia, GERD, lung cancer with left lung lobectomy in remission, IBS-D, cholecystectomy, tubal ligation and bladder suspension presents to the emergency department having been brought in by ambulance after experiencing significant headache with loss of vision in the right eye that is currently resolved. Patient's symptoms started at 16:00 on 02/03/2025 and patient arrived at the emergency department at 16:50 with resolve of visual symptoms. It should be noted that patient was admitted 1 week prior with chest pain and hypertension and was found to have an abnormal echo and also underwent an outpatient nuclear stress test this past Monday. Patient being admitted with the following medical problems: TIA, Rule out neurological event No obvious deficits at this time. Visual loss has resolved, no evidence of retinal detachment or acute ophthalmological emergency CTA of the head and neck: No ICA or M1 occlusion, 25-50% RUPERT, no significant stenosis of LICA Neurology consulted MRI of the brain pending for a.m. Patient currently on aspirin 81 mg and statin (MED REC PENDING) Echo done during last admission on 01/24/2025 noting mild aortic stenosis, abnormal mitral valve, EF greater than 70% with moderately enlarged left atrium, ascending aorta dilated 3.7 Diet permitted as patient passed bedside swallow PT, OT as needed Telemetry HTN urgency BP grossly elevated on arrival, likely contributing to symptoms Blood pressure currently stable, avoid hypotension Hydralazine PRN Low Na, Cardiac Diet Ativan 0.5 mg x 1 for anxiety and insomnia which also helps to control patient's blood pressure per report Chronic cough/ history of lung cancer with lobectomy PRN antitussives Patient does not require oxygen Patient is still follows with oncologist for follow-up but did not require chemotherapy or radiation GERD Pepcid to cotinue once med rec completed NIDDM Patient has been well controlled on diet and exercise only Last A1c was 6.3 less than 3 months prior Patient checks blood sugar once daily at home Sliding scale insulin with a.c. HS coverage ordered Depression/anxiety/grieving process related to loss of May 2024/insomnia Provided Ativan 0.5 mg x 1 Patient no longer taking SSRIs due to side effects Patient is seeking help in the community in regards to therapy and/or psychologist/psychiatrist - case management consulted Patient has been feeling overwhelmed since her passed, denies SI, HI issues Lactose Intolerance Lactose controlled diet ordered IBS-D chronic, non infectious Pt follows with Dr. Blanchard as an outpatient No issues currently requiring RX intervention DVT prophylaxis: Lovenox Med rec pending Full code status Quality Stroke Does the patient have a stroke diagnosis?: No Reason for No Anti-thrombotic by Day Two: N/A - Med Ordered VTE Prior VTE?: No VTE Risk Level:: Medical - moderate - high VTE Device Contraindication: N/A - Device Ordered VTE Drug Contraindication: N/A - Med Ordered
[2025-02-04 05:08] LABS: Hematocrit 33.7 % (37.0-47.0); Hemoglobin 11.8 g/dl (12.0-16.0); Imm Gran Abs Auto 0.01 X10*3/uL (0.00-0.03); Imm Gran Pct Auto 0.2 % (0.0-0.4); Lymphocytes Absolute Auto 3.8 X10*3/uL (1.2-4.9); MANUAL DIFF FLAG SCAN; Mean Corpuscular HGB Conc 35.0 g/dl (31.0-35.0); Mean Corpuscular Hemoglobin 27.3 pg (27.0-33.0); Mean Corpuscular Volume 77.8 fL (80.0-98.0); NRBC Abs Auto 0.000 X10*3/uL (0.0-0.012); NRBC Pct Auto 0.0 /100WBC (0.0-0.2); Platelet Count 259 X10*3/uL (160-400); Red Blood Count 4.33 X10*6/uL (4.20-5.50); SCAN SMEAR FLAG 1; White Blood Count 6.1 X10*3/uL (4.8-10.8)
[2025-02-04 05:29] LABS: Anion Gap 15 (12-20); Blood Urea Nitrogen 9 mg/dL (9-16); Calcium 8.7 mg/dL (8.4-10.2); Carbon Dioxide 22 mmol/L (22-29); Chloride 109 mmol/L (96-108); Creatinine Clr Calc Pharmacy 85.3; Estimated Glomerular Filt Rate > 60; Potassium 3.5 mmol/L (3.3-5.1); Sodium 142 mmol/L (135-145)
[2025-02-04 05:30] LABS: B Type Natriuretic Peptide 222 pg/mL (<100)
[2025-02-04 05:46] LABS: Thyroid Stimulating Hormone 1.04 uIU/mL (0.32-4.0)
[2025-02-04 07:22] LABS: Glucose, Whole Blood 111 mg/dL (60-115)
[2025-02-04] MEDS: 0.9 % Sodium Chloride Flush 3 ML SYRINGE IVFLUSH ×3 (08:21→21:19)
--- NOTE | 2025-02-04 09:01 | PC.NURSE ---
MRI screening form completed with Pt. Form faxed to MRI and original hard copy placed in Pt chart.
--- NOTE | 2025-02-04 09:28 | PHA.MEDREC ---
Addendum entered by Amandeep Narayan PharmD 02/04/25 09:42: reviewed Original Note: Pharmacy Consult ? Medication Reconciliation Pharmacy has completed the medication reconciliation. Spoke with pt and she confirmed her medications. Per pt: she is no longer taking Azelastine or Benzonatate; stating last discharge 01/24 Dr stopped them, no longer taking Fluoxetine or Sertraline due to the side effects, she is weaning off her Lorazepam, per her Dr; she is now taking 1/2 tab in the afternoon and 1 tab at bedtime and stopped Prednisone; stating her Dr only prescribed a weeks worth dose last time she got it (claims show LF 11/05 #90 for 90).
--- NOTE | 2025-02-04 10:51 | MHC.CM.PN ---
IMM 02/04/25, Pt. lives alone, she does not use home health services or DME. She was in ED last week, referral submitted to [facility] at that time, she has not yet heard from them. Pt. requested info re: counseling services, she is grieving the loss of her , CM provided pt. with resources. PCP confirmed: Alex Mensah. Family to transport pt. home at [place]. DCP: home with services. CM to follow for DC needs.
--- NOTE | 2025-02-04 11:09 | PM.NEUROCN ---
History of Present Illness Data of Consult Service Date: 02/04/25 Primary Care Provider: Alex Mensah MD [facility] Reason for consult: Blurred vision 79 years old woman with underlying history of hypertension not well control and type 2 diabetes somewhat depressed with history of migraine type of headaches was having a headache yesterday when she lost vision in her right eye. It started slowly lasted for few minutes and then recovered slowly and at that point she also was seeing flashes of lights. She had previous experience with seeing flashes of light but this time her vision went away. She called her primary care physician and was advised to come to emergency room where her blood pressure was found to be high more than 200 systolic. There was no associated confusion or numbness paralysis or speech or language difficulty. Now she was feeling fine. [facility] Past Medical History Medical History Peptic ulcer Lung cancer Psoriasis Type 2 diabetes mellitus GERD (gastroesophageal reflux disease) Osteopenia Pulmonary nodule Depression Fibromyalgia IBS (irritable bowel syndrome) High cholesterol HTN (hypertension) Chronic cough Allergic rhinitis Cough due to bronchospasm Family History Family History Father Myocardial infarction Mother Diabetic coma Sister No problems noted. Brother GI bleed Surgical History Surgical History Hx of bladder repair surgery S/P lobectomy of lung History of tubal ligation History of esophagogastroduodenoscopy (EGD) History of laparoscopic cholecystectomy History of colonoscopy (~10/27/23) Social History Social History Housing: Apartment Alcohol intake: never Patient Tobacco Use Status: Former Tobacco user Years Smoked: (Smoked 1/2ppd from 1962 to 1981 - 10PYH) Smoked in Last 30 Days: No e-Cigarette/Vaping Use: Never Used Use of substances other than those prescribed or required for medical reasons: No Advance Directives: No Advance Directives Information Provided: Yes Do you have a plan to hurt others: No Plan Patient : No service: No Current occupational status: employed and retired Cognitive needs: No Hearing needs: No Vision needs: Yes (Rx glasses) Travel History Ebola Risk: Travel/Contact With Anyone From Affected Area/s: No Has Patient Experienced Ebola Symptoms: No Meds Allergies Allergy/AdvReac Type Severity Reaction Status Date / Time niacin (Niacin) Allergy Mild RASH Verified 02/03/25 18:29 lactose (Lactose) AdvReac Mild DIARRHEA Verified 02/03/25 18:29 atorvastatin (Lipitor) AdvReac Unknown Unknown Verified 02/03/25 18:29 celecoxib (Celebrex) AdvReac Unknown Unknown Verified 02/03/25 18:29 simvastatin AdvReac Unknown Unknown Verified 02/03/25 18:29 Active Medications: Current Medications Acetaminophen (Acetaminophen 325 Mg Tablet) 650 mg PO Q6H PRN PRN Reason: Pain, Mild 1-3,fever,headache Last Admin: 02/04/25 08:25 Dose: 650 mg Albuterol/Ipratropium (Albuterol/Iprat 2.5/0.5mg 3 Ml Ampul.Neb) 3 ml INHALE Q4H PRN PRN Reason: Shortness of Breath/Wheezing Calcium Carbonate (Calcium Carbonate 750 Mg Tab.Chew) 750 mg PO Q4H PRN PRN Reason: Heartburn Dextrose (Dextrose 50 % 25 Gm/50 Ml Syringe) 25 gm IVPUSH Q15M PRN; Protocol PRN Reason: per Hypoglycemia Standing Ord. Enoxaparin Sodium (Enoxaparin Sodium 40 Mg/0.4 Ml Syringe) 40 mg SUBCUT Q24H JEFF Last Admin: 02/04/25 02:56 Dose: 40 mg Glucose (Glucose Gel 15 Gm Gel..Gram.) 15 gm PO Q15M PRN; Protocol PRN Reason: per Hypoglycemia Standing Ord. Insulin Human Lispro (Insulin Lispro 100 Unit/Ml 3 Ml Vial) 0 unit SUBCUT QIDACHS [facility]; Protocol Last Admin: 02/04/25 07:22 Dose: Not Given Magnesium Hydroxide (Milk Of Magnesia 30 Ml Oral.Susp) 30 ml PO DAILY PRN PRN Reason: Constipation Melatonin (Melatonin 3 Mg Tablet) 6 mg PO BEDTIME PRN PRN Reason: Insomnia Ondansetron HCl (Ondansetron Hcl 4 Mg/2 Ml Vial) 4 mg IVPUSH Q8H PRN PRN Reason: Nausea and Vomiting Polyethylene Glycol (Polyethylene Glycol 3350 17 Gm Powd.Pack) 17 gm PO DAILY PRN PRN Reason: Constipation Senna (Sennosides 8.6 Mg Tablet) 17.2 mg PO BEDTIME JEFF Sodium Chloride (0.9 % Sodium Chloride Flush 3 Ml Syringe) 3 ml IVFLUSH QSHIFT JEFF Last Admin: 02/04/25 08:21 Dose: 3 ml Home Medications ?Medication ?Instructions ?Recorded ?Confirmed ?Last Taken ?Type pravastatin 80 mg tablet 80 mg PO DAILY 02/29/20 02/04/25 02/03/25 History fluticasone propionate 110 2 puff inhalation BID 12/05/24 02/04/25 02/02/25 History mcg/actuation HFA aerosol inhaler lorazepam 1 mg tablet 0.5 mg PO DAILY@1630 01/23/25 02/04/25 02/02/25 History lorazepam 1 mg tablet 1 mg PO BEDTIME Anxiety 01/23/25 02/04/25 02/02/25 History aspirin 81 mg tablet 81 mg PO DAILY 01/28/25 02/04/25 02/03/25 History loratadine 10 mg tablet (Claritin) 10 mg PO DAILY PRN Allergy Symptoms 01/29/25 02/04/25 Unknown History carvedilol 3.125 mg tablet 6.25 mg PO BIDWM 02/04/25 02/04/25 02/02/25 History Physical Exam Vital Signs: Vital Signs: Last Vital Signs Temp 97.8 F 02/03/25 20:48 Pulse 71 02/04/25 08:31 Resp 20 02/04/25 08:31 BP 185/78 H 02/04/25 08:31 Pulse Ox 96 02/03/25 23:32 O2 Del Method Room Air 02/03/25 23:32 BMI result Body Mass Index 28.5 Neuro: Other: She is alert and awake with normal spontaneity of speech fluency comprehension and affect. Face is symmetrical. Visual galeana are full. There was no pronator drift. Deep tendon reflexes are trace to 1+ with flexor plantars. Speech is normal. Results Labs 02/04/25 05:01 02/04/25 05:01 Labs: Short CBC 02/03/25 02/04/25 Range/Units 19:06 05:01 WBC 6.8 6.1 (4.8-10.8) X10*3/uL Hgb 12.3 11.8 L (12.0-16.0) g/dl Hct 34.1 L 33.7 L (37.0-47.0) % Plt Count 265 259 (160-400) X10*3/uL BMP 02/03/25 02/04/25 19:06 05:01 Sodium 140 142 Potassium 3.9 3.5 Chloride 108 109 H Carbon Dioxide 24 22 BUN 15 9 Creatinine 0.69 0.54 [address] did not reveal any significant abnormality other than significant calcification and vertebrobasilar arterial system. Assessment and Plan (1) Transient monocular blindness: Qualifiers: Laterality: right Qualified Code(s): H53.121 - Transient visual loss, right eye Status: Acute 79 years old woman with uncontrolled hypertension somewhat depressed and previous history of migraine type of headaches including ocular migraines presented with an episode of headache, few minutes of right eye loss of vision followed by flashes of lights similar to what she used to see with a migraine type of episode. Her blood pressure was quite high. Likely diagnosis is ocular migraine though she was at risk for vascular disease. There was no large vessel or carotid disease. She is at risk for microvascular disease and that should be aggressively addressed. She is taking small dose of antihypertensive that should be adjusted. I would add statin and anti-platelet agent and also maybe a medicine like an SSRI for depression. Procedures Date of Service Date of Service: 02/04/25
--- NOTE | 2025-02-04 12:33 | PC.NURSE ---
Pt off unit for MRI.
[2025-02-04 13:17] LABS: Glucose, Whole Blood 129 mg/dL (60-115)
--- NOTE | 2025-02-04 13:19 | PC.NURSE ---
Addendum entered by Brenda Lamar RN 02/04/25 14:58: Verbal orders received from attending to administer Pts scheduled Carvedilol now in addition to a new order for one time IVP Hydralazine 5mg. Pt given IVP Hdralazine with good result. Carvedilol administered once delivered from pharmacy. Will continue to monitor blood pressure. Original Note: Pt returns from MRI. Pt c/o BENSON and BP noted to be elevated. Attending made aware via [facility] [employer].
--- NOTE | 2025-02-04 17:36 | HO.PM.IMPN ---
Subjective Subjective Date of Service: 02/04/25 Interval History: Frustrated, and anxious with being in the emergency room. Patient's blood pressure remains relatively uncontrolled. Patient denies recurrence of symptoms during presentation. She has no other complaints otherwise Review of Systems Review of Systems: Yes all other systems are reviewed and are negative Physical Exam Exam: Exam: General: A&O x3, oriented to time place person and situation, comfortable, no pain Cardiac: S1, S2 auscultated with no S3/4, no MRG. Well perfused. Respiratory: Normal breath sounds auscultated throughout all lung zones, without wheezing, rales. Normal rate. GI/ : No abdominal pain on palpation, no masses or distentions. MSK: Normal ambulation without pain at bony prominences or musculature Neurological: Normal neurological examination on overview, without obvious CN II-XII abnormalities. Vital Signs: Vital Signs: Last Vital Signs Temp 98.1 F 02/04/25 15:12 Pulse 72 02/04/25 15:12 Resp 18 02/04/25 15:12 BP 175/79 H 02/04/25 15:12 Pulse Ox 96 02/04/25 15:12 O2 Del Method Room Air 02/04/25 15:12 BMI result Body Mass Index 27.8 Objective Data Active Medications Acetaminophen (Acetaminophen 325 Mg Tablet) 650 mg PO Q6H PRN PRN Reason: Pain, Mild 1-3,fever,headache Last Admin: 02/04/25 15:21 Dose: 650 mg Documented By: RAMAKRISHNA Albuterol Sulfate (Albuterol Sulfate 90 Mcg 8 Gm Inhaler) 2 puff INHALE Q4H PRN PRN Reason: for dyspnea Albuterol/Ipratropium (Albuterol/Iprat 2.5/0.5mg 3 Ml Ampul.Neb) 3 ml INHALE Q4H PRN PRN Reason: Shortness of Breath/Wheezing Aspirin (Aspirin Enteric Coated 81 Mg Tablet.Dr) 81 mg PO DAILY JEFF Calcium Carbonate (Calcium Carbonate 750 Mg Tab.Chew) 750 mg PO Q4H PRN PRN Reason: Heartburn Carvedilol (Carvedilol 6.25 Mg Tablet) 6.25 mg PO BIDWM [facility]; Protocol Last Admin: 02/04/25 14:42 Dose: 6.25 mg Documented By: RAMAKRISHNA Comments: Verbal order received by [facility] to administer now Dextrose (Dextrose 50 % 25 Gm/50 Ml Syringe) 25 gm IVPUSH Q15M PRN; Protocol PRN Reason: per Hypoglycemia Standing Ord. Enoxaparin Sodium (Enoxaparin Sodium 40 Mg/0.4 Ml Syringe) 40 mg SUBCUT Q24H [facility] Last Admin: 02/04/25 02:56 Dose: 40 mg Documented By: RADHIKA Famotidine (Famotidine 20 Mg Tablet) 20 mg PO BID [facility] Last Admin: 02/04/25 12:16 Dose: 20 mg Documented By: RAMAKRISHNA Fluticasone Propionate (Fluticasone Propionate 100 Mcg Blst.W.Dev) 1 puff INHALE [facility] Glucose (Glucose Gel 15 Gm Gel..Gram.) 15 gm PO Q15M PRN; Protocol PRN Reason: per Hypoglycemia Standing Ord. Hydralazine HCl (Hydralazine Hcl 25 Mg Tablet) 25 mg PO BID [facility]; Protocol Last Admin: 02/04/25 12:17 Dose: 25 mg Documented By: RAMAKRISHNA Insulin Human Lispro (Insulin Lispro 100 Unit/Ml 3 Ml Vial) 0 unit SUBCUT QIDACHS [facility]; Protocol Last Admin: 02/04/25 13:21 Dose: Not Given Documented By: RAMAKRISHNA Non-Admin Reason: No Insulin Coverage Comments: POC 129 Lisinopril (Lisinopril 2.5 Mg Tablet) 2.5 mg PO DAILY [facility]; Protocol Last Admin: 02/04/25 12:16 Dose: 2.5 mg Documented By: RAMAKRISHNA Loratadine (Loratadine 10 Mg Tablet) 10 mg PO DAILY PRN PRN Reason: Allergy Symptoms Lorazepam (Lorazepam 0.5 Mg Tablet) 0.5 mg PO DAILY@1630 [facility] Last Admin: 02/04/25 16:07 Dose: 0.5 mg Documented By: RAMAKRISHNA Lorazepam (Lorazepam 1 Mg Tablet) 1 mg PO BEDTIME [facility] Magnesium Hydroxide (Milk Of Magnesia 30 Ml Oral.Susp) 30 ml PO DAILY PRN PRN Reason: Constipation Melatonin (Melatonin 3 Mg Tablet) 6 mg PO BEDTIME PRN PRN Reason: Insomnia Ondansetron HCl (Ondansetron Hcl 4 Mg/2 Ml Vial) 4 mg IVPUSH Q8H PRN PRN Reason: Nausea and Vomiting Polyethylene Glycol (Polyethylene Glycol 3350 17 Gm Powd.Pack) 17 gm PO DAILY PRN PRN Reason: Constipation Pravastatin Sodium (Pravastatin Sodium 80 Mg Tablet) 80 mg PO DAILY [facility] Last Admin: 02/04/25 13:25 Dose: 80 mg Documented By: RAMAKRISHNA Comments: Given late as Pt was in MRI Senna (Sennosides 8.6 Mg Tablet) 17.2 mg PO BEDTIME [facility] Sodium Chloride (0.9 % Sodium Chloride Flush 3 Ml Syringe) 3 ml IVFLUSH QSHIFT [facility] Last Admin: 02/04/25 15:23 Dose: 3 ml Documented By: RAMAKRISHNA Labs 02/04/25 05:01 02/04/25 05:01 Labs: Laboratory Results - last 24 hr 02/03/25 02/04/25 02/04/25 19:06 05:01 07:19 MCV 76.3 L 77.8 L MCH 27.5 27.3 MCHC 36.1 H 35.0 RDW 14.8 14.9 Plt Count 265 259 MPV 9.8 10.1 Immature Gran % (Auto) 0.1 0.2 Neut % (Auto) 48.4 29.8 L Lymph % (Auto) 43.2 H 61.6 H Gove % (Auto) 7.0 6.4 Eos % (Auto) 0.9 1.3 Baso % (Auto) 0.4 0.7 Lymph # (Auto) 2.9 3.8 Gove # (Auto) 0.5 0.4 Eos # (Auto) 0.1 0.1 Baso # (Auto) 0.0 0.0 Abs Immat Gran (auto) 0.01 0.01 Absolute Neuts (auto) 3.3 1.8 L Absolute Nucleated RBC 0.000 0.000 Nucleated RBC % (auto) 0.0 0.0 Smear Tech's Comments VERIFIED Anion Gap 12 15 Estim Creat Clear Calc 66.7 85.3 Estimated GFR > 60 > 60 POC Glucose 111 Random Glucose 162 H 108 Calcium 9.0 8.7 Magnesium 2.0 B-Natriuretic Peptide 222 H TSH 0.41 1.04 02/04/25 13:13 MCV MCH MCHC RDW Plt Count MPV Immature Gran % (Auto) Neut % (Auto) Lymph % (Auto) Gove % (Auto) Eos % (Auto) Baso % (Auto) Lymph # (Auto) Gove # (Auto) Eos # (Auto) Baso # (Auto) Abs Immat Gran (auto) Absolute Neuts (auto) Absolute Nucleated RBC Nucleated RBC % (auto) Smear Tech's Comments Anion Gap Estim Creat Clear Calc Estimated GFR POC Glucose 129 H Random Glucose Calcium Magnesium B-Natriuretic Peptide TSH Assessment and Plan (1) HTN (hypertension): Status: Acute (2) Hypertensive emergency: Status: Acute (3) Non-rheumatic aortic stenosis: Status: Acute (4) TIA (transient ischemic attack): Status: Acute Plan 79-year-old female, with a history of T2 DM, HTN, MDD/anxiety since passing of her 05/28, fibromyalgia, lung cancer s/p left lung lobectomy in remission, presents to the hospital with sudden loss of vision in the right eye with headache, admitted with hypertensive emergency with TIA. TIA Intermittent right vision loss No obvious deficits at this time. Visual loss has resolved CTA of the head and neck: No occlusion evident, 25-50% RUPERT, no significant stenosis of LICA Neurology consulted MRI of the brain pending for a.m. Patient currently on aspirin 81 mg and statin (MED REC PENDING) Echo done during last admission on 01/24/2025 noting mild aortic stenosis, abnormal mitral valve, EF greater than 70% with moderately enlarged left atrium, ascending aorta dilated 3.7 Diet permitted as patient passed bedside swallow PT, OT as needed Telemetry Hypertensive Emergency BP grossly elevated on arrival, likely contributing to symptoms Blood pressure currently stable, avoid hypotension Ativan 0.5 mg x 1 for anxiety and insomnia which also helps to control patient's blood pressure per report Carvedilol 6.25 b.i.d. p.o. Hydralazine 25 mg b.i.d. p.o. Lisinopril 2.5 mg OD p.o. Hydralazine IV p.r.n. Chronic cough/ history of lung cancer with lobectomy PRN antitussives Patient does not require oxygen Patient is still follows with oncologist for follow-up but did not require chemotherapy or radiation GERD Pepcid to cotinue once med rec completed NIDDM Patient has been well controlled on diet and exercise only Last A1c was 6.3 less than 3 months prior Patient checks blood sugar once daily at home Sliding scale insulin with spike BETANCUR coverage ordered Depression/anxiety/grieving process related to loss of May 2024/insomnia Provided Ativan 0.5 mg x 1 Patient no longer taking SSRIs due to side effects Patient is seeking help in the community in regards to therapy and/or psychologist/psychiatrist - case management consulted Patient has been feeling overwhelmed since her passed, denies SI, HI issues Lactose Intolerance Lactose controlled diet ordered IBS-D chronic, non infectious Pt follows with Dr. Blanchard as an outpatient No issues currently requiring RX intervention [employer] - VTE: Enoxaparin - CODE STATUS: Full code - DIET: Cardiac Quality Stroke Does the patient have a stroke diagnosis?: No Reason for No Anti-thrombotic by Day Two: N/A - Med Ordered VTE Prior VTE?: No VTE Risk Level:: Medical - moderate - high VTE Device Contraindication: N/A - Device Ordered VTE Drug Contraindication: N/A - Med Ordered
[2025-02-04 18:20] LABS: Glucose, Whole Blood 129 mg/dL (60-115)
[2025-02-04] MEDS: Fluticasone Propionate 100 MCG BLST.W.DEV 1 PUFF INHALE (20:10)
[2025-02-04 20:55] LABS: Glucose, Whole Blood 162 mg/dL (60-115)
[2025-02-05] VITALS (9 sets, daily range): BP systolic 101–124; BP diastolic 50–62; PULSE 63–92; RESP 16–18; TEMP 36.1–36.6; O2SAT 93–98
[2025-02-05 00:23] LABS: Glucose, Whole Blood 114 mg/dL (60-115)
[2025-02-05 01:27] LABS: Glucose, Whole Blood 126 mg/dL (60-115)
[2025-02-05 07:12] LABS: Glucose, Whole Blood 126 mg/dL (60-115)
[2025-02-05] MEDS: Fluticasone Propionate 100 MCG BLST.W.DEV 1 PUFF INHALE ×2 (09:58→19:34)
[2025-02-05 11:07] LABS: Glucose, Whole Blood 152 mg/dL (60-115)
[2025-02-05] MEDS: 0.9 % Sodium Chloride Flush 3 ML SYRINGE IVFLUSH ×3 (11:16→21:22)
[2025-02-05] MEDS: Aspirin Enteric Coated 81 MG TABLET.DR PO (11:16)
--- NOTE | 2025-02-05 14:18 | MHC.CM.PN ---
Per rounds, pt. to be monitored for one more day, CM provided pt. with resources for grief counseling.
[2025-02-05 16:00] LABS: Glucose, Whole Blood 115 mg/dL (60-115)
--- NOTE | 2025-02-05 16:20 | P.PNIM_ITS ---
Subjective Subjective Date of Service: 02/05/25 Interval History: Patient seen today, with good night overnight. MRI results were reviewed in depth with the patient. She denies any recurrence of visual symptoms - floaters, however no recurrence of right eye blindness. Reports persistence of her nocturnal cough - suspected to be GERD Discussed regarding etiology-most likely hypertensive emergency. Echocardiography revealing LVEF 70% on previous evaluation; given recent passing of her of 40 years, suspected manifestation of prolonged catecholamine response. Review of Systems Review of Systems: Yes all other systems are reviewed and are negative Physical Exam 2 Exam: Exam: General: A&O x3, oriented to time place person and situation, comfortable, no pain Cardiac: S1, S2 auscultated with no S3/4, no MRG. Well perfused. Respiratory: Normal breath sounds auscultated throughout all lung zones, without wheezing, rales. Normal rate. GI/ : No abdominal pain on palpation, no masses or distentions. MSK: Normal ambulation without pain at bony prominences or musculature Neurological: Normal neurological examination on overview, without obvious CN II-XII abnormalities. Vital Signs: Vital Signs: Last Vital Signs Temp 97.6 F 02/05/25 15:38 Pulse 65 02/05/25 15:38 Resp 18 02/05/25 15:38 BP 106/56 L 02/05/25 15:38 Pulse Ox 93 02/05/25 15:38 O2 Del Method Room Air 02/05/25 15:38 BMI result Body Mass Index 27.8 Objective Data Active Medications Acetaminophen (Acetaminophen 325 Mg Tablet) 650 mg PO Q6H PRN PRN Reason: Pain, Mild 1-3,fever,headache Last Admin: 02/04/25 21:18 Dose: 650 mg Documented By: ROSS Albuterol Sulfate (Albuterol Sulfate 90 Mcg 8 Gm Inhaler) 2 puff INHALE Q4H PRN PRN Reason: for dyspnea Albuterol/Ipratropium (Albuterol/Iprat 2.5/0.5mg 3 Ml Ampul.Neb) 3 ml INHALE Q4H PRN PRN Reason: Shortness of Breath/Wheezing Aspirin (Aspirin Enteric Coated 81 Mg Tablet.) 81 mg PO DAILY JEFF Last Admin: 02/05/25 11:16 Dose: 81 mg Documented By: ANKITA Calcium Carbonate (Calcium Carbonate 750 Mg Tab.Chew) 750 mg PO Q4H PRN PRN Reason: Heartburn Carvedilol (Carvedilol 6.25 Mg Tablet) 6.25 mg PO BIDWM [facility]; Protocol Last Admin: 02/05/25 11:17 Dose: 6.25 mg Documented By: ANKITA Dextrose (Dextrose 50 % 25 Gm/50 Ml Syringe) 25 gm IVPUSH Q15M PRN; Protocol PRN Reason: per Hypoglycemia Standing Ord. Enoxaparin Sodium (Enoxaparin Sodium 40 Mg/0.4 Ml Syringe) 40 mg SUBCUT Q24H [facility] Last Admin: 02/05/25 02:35 Dose: 40 mg Documented By: ROSS Famotidine (Famotidine 20 Mg Tablet) 20 mg PO BID [facility] Last Admin: 02/05/25 11:16 Dose: 20 mg Documented By: ANKITA Fluticasone Propionate (Fluticasone Propionate 100 Mcg Blst.W.Dev) 1 puff INHALE RBID [facility] Last Admin: 02/05/25 09:58 Dose: 1 puff Documented By: MALVIN Glucose (Glucose Gel 15 Gm Gel..Gram.) 15 gm PO Q15M PRN; Protocol PRN Reason: per Hypoglycemia Standing Ord. Hydralazine HCl (Hydralazine Hcl 25 Mg Tablet) 25 mg PO BID [facility]; Protocol On Hold: 02/05/25 16:20 Last Admin: 02/05/25 11:18 Dose: 12.5 mg Documented By: ANKITA Comments: per Insulin Human Lispro (Insulin Lispro 100 Unit/Ml 3 Ml Vial) 0 unit SUBCUT QIDACHS [facility]; Protocol Last Admin: 02/05/25 11:43 Dose: 2 unit Documented By: ANKITA Lisinopril (Lisinopril 2.5 Mg Tablet) 2.5 mg PO DAILY [facility]; Protocol Last Admin: 02/05/25 11:16 Dose: 2.5 mg Documented By: ANKITA Loratadine (Loratadine 10 Mg Tablet) 10 mg PO DAILY PRN PRN Reason: Allergy Symptoms Lorazepam (Lorazepam 0.5 Mg Tablet) 0.5 mg PO DAILY@1630 [facility] Last Admin: 02/04/25 16:07 Dose: 0.5 mg Documented By: RAMAKRISHNA Lorazepam (Lorazepam 1 Mg Tablet) 1 mg PO BEDTIME [facility] Last Admin: 02/04/25 21:17 Dose: 1 mg Documented By: ROSS Magnesium Hydroxide (Milk Of Magnesia 30 Ml Oral.Susp) 30 ml PO DAILY PRN PRN Reason: Constipation Melatonin (Melatonin 3 Mg Tablet) 6 mg PO BEDTIME PRN PRN Reason: Insomnia Ondansetron HCl (Ondansetron Hcl 4 Mg/2 Ml Vial) 4 mg IVPUSH Q8H PRN PRN Reason: Nausea and Vomiting Polyethylene Glycol (Polyethylene Glycol 3350 17 Gm Powd.Pack) 17 gm PO DAILY PRN PRN Reason: Constipation Pravastatin Sodium (Pravastatin Sodium 80 Mg Tablet) 80 mg PO DAILY [facility] Last Admin: 02/05/25 11:18 Dose: 80 mg Documented By: ANKITA Senna (Sennosides 8.6 Mg Tablet) 17.2 mg PO BEDTIME [facility] Last Admin: 02/04/25 21:17 Dose: 17.2 mg Documented By: ROSS Sodium Chloride (0.9 % Sodium Chloride Flush 3 Ml Syringe) [facility] Last Admin: 02/05/25 11:16 Dose: 3 ml Documented By: ANKITA Labs 02/04/25 05:01 02/04/25 05:01 Labs: Laboratory Results - last 24 hr 02/04/25 02/04/25 02/05/25 18:09 20:48 00:18 POC Glucose 129 H 162 H 114 02/05/25 02/05/25 02/05/25 01:23 07:09 11:03 POC Glucose 126 H 126 H 152 H 02/05/25 15:54 POC Glucose 115 Assessment and Plan (1) Hypertensive emergency: Status: Acute (2) HTN (hypertension): Status: Acute (3) Non-rheumatic aortic stenosis: Status: Acute (4) Type 2 diabetes mellitus: Status: Acute Plan 79-year-old female, with a history of T2 DM, HTN, MDD/anxiety since passing of her 05/28, fibromyalgia, lung cancer s/p left lung lobectomy in remission, presents to the hospital with sudden loss of vision in the right eye with headache, admitted with hypertensive emergency with TIA. TIA Intermittent right vision loss No obvious deficits at this time. Visual loss has resolved CTA of the head and neck: No occlusion evident, 25-50% RUPERT, no significant stenosis of LICA Neurology consulted MRI of the brain pending for a.m. Patient currently on aspirin 81 mg and statin (MED REC PENDING) Echo done during last admission on 01/24/2025 noting mild aortic stenosis, abnormal mitral valve, EF greater than 70% with moderately enlarged left atrium, ascending aorta dilated 3.7 Possible etiology of hypertensive emergency 2/2 prolonged catecholamine response Diet permitted as patient passed bedside swallow PT, OT as needed Telemetry Hypertensive Emergency BP grossly elevated on arrival, likely contributing to symptoms Blood pressure currently stable ECHO 01/24 revealing hyperdynamic LVEF 70%. Given recent passing of , this could be source of HTN in the setting of prolonged catecholamine response - no overt evidence of takotsubo cardiomyopathy. Ativan 0.5 mg x 1 for anxiety and insomnia which also helps to control patient's blood pressure per report - Carvedilol 6.25 b.i.d. p.o. - Lisinopril 2.5 mg OD p.o. Hold Hydralazine 25 mg b.i.d. p.o. Chronic cough/ history of lung cancer with lobectomy PRN antitussives Patient does not require oxygen Patient is still follows with oncologist for follow-up but did not require chemotherapy or radiation GERD Pepcid to cotinue once med rec completed NIDDM Patient has been well controlled on diet and exercise only Last A1c was 6.3 less than 3 months prior Patient checks blood sugar once daily at home Sliding scale insulin with a.c. HS coverage ordered Depression/anxiety/grieving process related to loss of May 2024/insomnia Provided Ativan 0.5 mg x 1 Patient no longer taking SSRIs due to side effects Patient is seeking help in the community in regards to therapy and/or psychologist/psychiatrist - case management consulted Patient has been feeling overwhelmed since her passed, denies SI, HI issues Lactose Intolerance Lactose controlled diet ordered IBS-D chronic, non infectious Pt follows with Dr. Blanchard as an outpatient No issues currently requiring RX intervention [employer] - VTE: Enoxaparin - CODE STATUS: Full code - DIET: Cardiac Total time managing care of this patient today: 35 minutes. Quality Stroke Does the patient have a stroke diagnosis?: No Reason for No Anti-thrombotic by Day Two: N/A - Med Ordered VTE Prior VTE?: No VTE Risk Level:: Medical - moderate - high VTE Device Contraindication: N/A - Device Ordered VTE Drug Contraindication: N/A - Med Ordered
[2025-02-05 20:16] LABS: Glucose, Whole Blood 136 mg/dL (60-115)
[2025-02-06 03:28] VITALS: BP 117/61; PULSE 63; RESP 18; TEMP 36.7; O2SAT 95
[2025-02-06 07:20] LABS: Glucose, Whole Blood 127 mg/dL (60-115)
[2025-02-06] MEDS: Fluticasone Propionate 100 MCG BLST.W.DEV 1 PUFF INHALE (07:55)
[2025-02-06 07:56] VITALS: BP 110/62; PULSE 76; RESP 16; TEMP 36.1; O2SAT 97
[2025-02-06 07:57] VITALS: PULSE 76; RESP 16; O2SAT 97
[2025-02-06] MEDS: 0.9 % Sodium Chloride Flush 3 ML SYRINGE IVFLUSH (08:34)
[2025-02-06] MEDS: Aspirin Enteric Coated 81 MG TABLET.DR PO (08:34)
[2025-02-06 11:45] LABS: Glucose, Whole Blood 181 mg/dL (60-115)
[2025-02-06 12:00] VITALS: BP 104/51; PULSE 68; RESP 16; TEMP 36.2; O2SAT 98
[2025-02-06 15:22] VITALS: BP 131/67; PULSE 66; RESP 18; TEMP 36.4; O2SAT 95
--- NOTE | 2025-02-06 15:32 | MHC.CM.PN ---
Pt is medically cleared for discharge home self-care, pts family will transport her home.
[2025-02-06 16:17] LABS: Glucose, Whole Blood 98 mg/dL (60-115)
--- NOTE | 2025-02-06 19:12 | P.DS_ITS ---
DS: Providers Provider Date of Service: 02/06/25 Date of admission: 02/04/25 00:58 Date of discharge: 02/06/25 Primary care physician: Alex Mensah MD Consults: 02/04/25 02:04 Consult to Neurology Routine Consulting Provider: [facility] Reason for consultation: TIA vs CVA, temp loss of vision R eye HTN Has provider been notified: No 02/04/25 03:15 Consult to Case Management Routine Comment: pt req help with finding therapist, mental [facility] DS: Diagnosis Discharge Diagnosis (1) Hypertensive emergency: Status: Acute (2) HTN (hypertension): Status: Acute (3) Non-rheumatic aortic stenosis: Status: Acute (4) Type 2 diabetes mellitus: Status: Acute DS: Summary Hospital Course Hospital Course: Chief Complaint: HTN, Headache, visual changes Patient is a 79-year-old female with past medical history NIDDM, HTN, Cataracts, Allergic Rhinitis, insomnia, systolic murmur, depression/anxiety with grieving since the loss of her 05/2024, hyperlipidemia, recent chest pain and nuclear stress test, fibromyalgia, GERD, lung cancer with left lung lobectomy in remission, IBS-D, cholecystectomy, tubal ligation and bladder suspension presents to the emergency department having been brought in by ambulance after experiencing significant headache with loss of vision in the right eye that is currently resolved. Patient's symptoms started approximately 16:00. Patient states initially her right eye went dark while watching TV. Patient's vision then returned and she started to see stars and then vision became fuzzy. Patient had checked her blood pressure at home and it was 190/103. Patient initially called her daughter and the daughter said to call her doctor. Once patient called the doctor they told her to call 911 and be seen in the emergency department. Patient arrived at the ED at 16:50 with vis ual changes resolved but headache and elevated blood pressure persisted. Patient denied any chest pain or shortness breast during this time. Patient was seen 1 week ago for chest pain and hypertension. As an outpatient for follow-up patient had a nuclear stress study this past Monday and her anxiety has increased since with all these new appointments and outpatient follow- up. Patient states when her anxiety increases, her blood pressure also rises. Pt also lost her in May 2024 after 40 yrs of marriage and pt is still grieving his loss, adding to her anxiety. BP has since improved and pt received morphine and no antihypertensives. Pt reports only a mild BENSON after tylenol and visual changes have completely resolved. Pt denies hx of retinal detachment. Pt requesting ativan to help her rest, which she takes at home. Pt denies internal devices including PPM and ICD for planned MRI of brain in AM. Pt being admitted with no obvious deficits. TIA Intermittent right vision loss No obvious deficits at this time. Visual loss has resolved CTA of the head and neck: No occlusion evident, 25-50% RUPERT, no significant stenosis of LICA Neurology consulted MRI of the brain pending for a.m. Patient currently on aspirin 81 mg and statin (MED REC PENDING) Echo done during last admission on 01/24/2025 noting mild aortic stenosis, abnormal mitral valve, EF greater than 70% with moderately enlarged left atrium, ascending aorta dilated 3.7 Possible etiology of hypertensive emergency 2/2 prolonged catecholamine response Hypertensive Emergency BP grossly elevated on arrival, likely contributing to symptoms Blood pressure currently stable ECHO 01/24 revealing hyperdynamic LVEF 70%. Given recent passing of , this could be source of HTN in the setting of prolonged catecholamine response - no overt evidence of takotsubo cardiomyopathy. Ativan 0.5 mg x 1 for anxiety and insomnia which also helps to control patient's blood pressure per report - Carvedilol 6.25 b.i.d. p.o. - Lisinopril 2.5 mg OD p.o. Hold Hydralazine 25 mg b.i.d. p.o. Status at Discharge Functional status at discharge: independent ambulation Overall status at discharge: patient is back to baseline Time Attestation Total time managing care of this patient today: 45 mintues. Discharge Coordination Time (in mins): 15 Quality: Safe Use of Opioids Does Pt have an Active Cancer Diagnosis on the Problem List?: No Quality: Stroke Does the patient have a stroke diagnosis?: No Physical Exam Exam: Exam: General: A&O x3, oriented to time place person and situation, comfortable, no pain Cardiac: S1, S2 auscultated with no S3/4, no MRG. Well perfused. Respiratory: Normal breath sounds auscultated throughout all lung zones, without wheezing, rales. Normal rate. GI/ : No abdominal pain on palpation, no masses or distentions. MSK: Normal ambulation without pain at bony prominences or musculature Neurological: Normal neurological examination on overview, without obvious CN II-XII abnormalities. Vital Signs: Vital Signs: Last Vital Signs Temp 97.5 F 02/06/25 15:22 Pulse 66 02/06/25 15:22 Resp 18 02/06/25 15:22 BP 131/67 02/06/25 15:22 Pulse Ox 95 02/06/25 15:22 O2 Del Method Room Air 02/06/25 15:22 BMI result Body Mass Index 27.8 DS: Data Data Completed and Pending Labs on day of discharge: Laboratory Results - last 24 hr 02/05/25 02/06/25 02/06/25 20:01 07:12 11:06 POC Glucose 136 H 127 H 181 H 02/06/25 15:26 POC Glucose 98 Discharge Plan Discharge Anticipated Discharge Date/Time: 02/06/25 14:46 Patient Disposition: Home, Self-Care Discharge Diagnosis: Hypertensive emergency with monocular blindness 2/2 TIA Referrals: Alex Mensah MD [Primary Care Provider, Internal Medicine] - 1 Week Discharge Medications: New carvedilol 6.25 mg Tablet 6.25 mg PO BIDWM 30 Days Qty: 60 3RF Protocol: Hold for SBP/HR < HOLD for SBP < : 90 HOLD for HR < : 60 Continued albuterol sulfate 90 mcg/actuation HFA aerosol inhaler 2 puff PO Q4-6H PRN (Reason: for dyspnea) Qty: 1 5RF loratadine [Claritin] 10 mg tablet 10 mg PO DAILY PRN (Reason: Allergy Symptoms) lorazepam 1 mg tablet 0.5 mg PO DAILY@1630 lorazepam 1 mg tablet 1 mg PO BEDTIME Rx Instructions: 0.5mg oral twice daily and 2mg oral qhs famotidine 20 mg tablet 20 mg PO BID 30 Days Qty: 60 0RF (DME) blood sugar diagnostic Strip See Rx Instructions Not Applicable DAILY Qty: 10 0RF Rx Instructions: As directed (DME) FreeStyle Lite Strips Strip See Rx Instructions .Route Qty: 100 3RF Rx Instructions: once daily (DME) blood-glucose meter Kit See Rx Instructions Not Applicable BID Qty: 1 0RF Rx Instructions: As directed (DME) lancets 28 gauge misc See Rx Instructions topical BID Qty: 100 0RF Rx Instructions: As directed pravastatin 80 mg tablet 80 mg PO DAILY fluticasone propionate 110 mcg/actuation HFA aerosol inhaler 2 puff inhalation BID aspirin 81 mg tablet 81 mg PO DAILY lisinopril 2.5 mg tablet 2.5 mg PO DAILY 30 Days Qty: 30 0RF Held hydralazine 25 mg tablet 25 mg PO BID 90 Days Qty: 180 1RF Hold Instructions: Resume on 02/20/25. Blood pressure well controlled - 120/90mmHg in hospital - HOLD hydralazine for now Discontinued carvedilol 3.125 mg tablet 6.25 mg PO BIDWM Rx Instructions: must administer with a meal/food Discharge Orders: Discharge Order (Routine); Ordered 02/06/25 Ordered By: Gilson Yusuf Diet: Advance to usual diet Activity on Discharge: As tolerated Stand Alone Forms: Patient Portal Discharge page Print Language: Togolese Care Plan Goals: Follow up PCP; blood pressure management Follow up outpatient gastroenterology This referral for pulmonology Dr. Fontana given chronic cough Health Concerns: HTN with subsequent TIA Plan of Treatment: As above. Assessment: Patient currently hemodynamically stable, with controlled blood pressure. Patient has evidence of significant anxiety, with subsequent elevation in blood pressure. Patient presented with hypertensive emergency blood pressure to 230s systolic - now currently back at baseline. Patient Instructions: Carvedilol (By mouth) Discharge Date/Time: 02/06/25 17:28
== END 2025-02-06 17:28 | disposition home or self-care (01) | DRG 69 ==
LOC: HO.ED 02-04 01:17 → HO.EDOVER 02-04 03:20 → HO.IMC 02-04 16:57
PROVIDERS: Nurse Practitioner Family; Admitting Provider Internal Medicine; Emergency Provider Emergency Medicine; PCP Student in an Organized Health Care Education/Training Program; Visit Provider Hospitalist
DX: G45.9 Transient cerebral ischemic attack, unspecified (principal); I16.1 Hypertensive emergency; H53.121 Transient visual loss, right eye; Z63.4 Disappearance and death of family member; K58.0 Irritable bowel syndrome with diarrhea; K21.9 Gastro-esophageal reflux disease without esophagitis; F32.A Depression, unspecified; F41.9 Anxiety disorder, unspecified; E73.9 Lactose intolerance, unspecified; Z90.2 Acquired absence of lung [part of]; I35.0 Nonrheumatic aortic (valve) stenosis; Z85.118 Personal history of other malignant neoplasm of bronchus and lung; Z79.2 Long term (current) use of antibiotics; Z79.51 Long term (current) use of inhaled steroids; Z79.899 Other long term (current) drug therapy
CPT/HCPCS: 36415; 70496; 70498; 70551; 71046; 80048; 82947; 83735; 83880; 84443; 84484; 85025; 93005; 94640; 99285; J0360; J1650; J2270; J2405; Q9967

== ENCOUNTER → 2025-02-03 18:45 | Outpatient (BNV) | payer MEDICARE, OTHER, SELFPAY | PROVIDERS: Admitting Provider Internal Medicine; Emergency Provider Emergency Medicine; PCP Student in an Organized Health Care Education/Training Program; Visit Provider Internal Medicine Cardiovascular Disease | DX: I10 Essential (primary) hypertension (principal) | CPT/HCPCS: 93010 ==

== ENCOUNTER → 2025-02-03 22:30 | Outpatient (BNV) | payer MEDICARE, OTHER, SELFPAY | PROVIDERS: Emergency Provider Emergency Medicine; PCP Student in an Organized Health Care Education/Training Program; Visit Provider Radiology Neuroradiology | DX: I67.2 Cerebral atherosclerosis (principal); R07.89 Other chest pain; R05.9 Cough, unspecified | CPT/HCPCS: 70496; 70498; 71046 ==

== ENCOUNTER 2025-02-04 00:58 | Outpatient (BNV) | payer MEDICARE, OTHER, SELFPAY | END 2025-02-04 12:38 | PROVIDERS: Admitting Provider Internal Medicine; Emergency Provider Emergency Medicine; PCP Student in an Organized Health Care Education/Training Program; Visit Provider Radiology Diagnostic Radiology | DX: H53.121 Transient visual loss, right eye (principal); R51.9 Headache, unspecified | CPT/HCPCS: 70551 ==

== ENCOUNTER → 2025-02-04 00:58 | Outpatient (BNV) | payer MEDICARE, OTHER, SELFPAY | PROVIDERS: Admitting Provider Internal Medicine; Emergency Provider Emergency Medicine; PCP Student in an Organized Health Care Education/Training Program; Visit Provider Psychiatry & Neurology Neurology | DX: H53.121 Transient visual loss, right eye (principal) | CPT/HCPCS: 99223 ==

== ENCOUNTER → 2025-02-04 00:58 | Outpatient (BNV) | payer MEDICARE, OTHER, SELFPAY | PROVIDERS: Admitting Provider Internal Medicine; Emergency Provider Emergency Medicine; PCP Student in an Organized Health Care Education/Training Program; Visit Provider Nurse Practitioner Family | DX: I10 Essential (primary) hypertension (principal); I16.1 Hypertensive emergency; I35.0 Nonrheumatic aortic (valve) stenosis; G45.9 Transient cerebral ischemic attack, unspecified | CPT/HCPCS: 99223; 99499 ==

== ENCOUNTER 2025-02-07 09:55 | Outpatient (AMB) | payer MEDICARE, OTHER, SELFPAY ==
--- OUTSIDE RECORDS SUMMARY | 2023-08-29 11:00 | XMS_ITS ---
Author Organization [facility] Address [address] [place] [address] Care Team Providers Care Linux Network Systems Administrator Name Role Phone Sal (RETIRED) Dannie SHIELDS Primary Care Provide Fabrice Vergara [phone] REASON FOR VISIT abdominal pain Encounters Encounter Location Date Provider Diagnosis [facility] [address] [place] [address] 08/29/2023 Fabrice Blanchard Plan Of Treatment No Information Progress Notes * TREY BROWN IDOB:1944 (79 yo F)Acc No.[id number]:08/29/2023 Progress Notes Patient: TREY KOWALSKI I Provider: Tory Blanchard MD :1945 A ge:78 Y S ex:Female Date:08/29/2023 Address:[address] [place] [address] , [id number] Pcp:Dannie Huang (RETIRED )MD Subjective: * Chief [...] 0 08/29/2023 Generated for Emai ng/Faxing/eTransmitting on: 0 02/07/2025 10:41 AM EDT
--- OUTSIDE RECORDS SUMMARY | 2023-10-11 05:53 | XMS_ITS ---
Author Organization Fabrice Crain III, MD Address [address] [place] [address] [place] [address] Care Team Providers Care Memorial Marker Designer Name Role Phone Dannie Huang MD Primary Care Provider Fabrice Butcher Unavailable [phone] Chest W/ IV CONTRAST ORDER Social History Sex Assigned At : Social History Observation Description Sex Assigned At Female Encounters Encounter Location Date Provider Diagnosis Fabrice Crain III, MD [address] [place] [address] [place] [address] 10/11/2023 Fabrice Crain Malignant neoplasm of lower lobe of left lung C34.32 Assessments Encounter Date Diagnosis (ICD Code) Assessment Notes Treatment Notes Treatment Clinical Notes 10/11/2023 Malignant neoplasm of lower lobe of left lung (ICD-10 - C34.32) Plan Of Treatment Pending Test Test Name Order Date CT chest w con 10/11/2023 Next Appt Details Provider Name:Fabrice Crain, 04/11/2025 10:00:00 AM, [address] [place] [address] [place], [address], Progress Notes * KHOA CANDELARIOADOB:[birth year] (78 yo F)Acc No.[id number]:10/11/2023 Patient: KHOA KOWALSKIA :1945 A ge:78 Y S ex:Female Address:[address] [place], [address] Subjective: * Chief Complaints: * C T Chest W/ IV CONTRAST ORDER * Medical History: * Surgical History: * Hospitalization/Major Diagno stic Procedure: * Medications: Objective: Assessment: * Assessment: 1. M alignant neoplasm of lower lobe of left lung - C34.32 Plan: * Treatment: * Procedure Codes: * true * Date: Generated for Bryan lee/Emily/Sher on: 0 02/07/2025 10:42 AM EDT
--- OUTSIDE RECORDS SUMMARY | 2023-10-16 09:06 | XMS_ITS ---
Author Organization Fabrice Crain III, MD Address [address] [place] [address] [place] [address] Care Team Providers Care Aerospace Assembler Name Role Phone Dannie Huang MD Primary Care Provider Fabrice Butcher [phone] REASON FOR VISIT Regarding CT Chest Social History Sex Assigned At : Social History Observation Description Sex Assigned At Female Encounters Encounter Location Date Provider Diagnosis Fabrice Crain III, MD [address] [place] [address] [place] [address] 10/16/2023 Fabrice Crain Plan Of Treatment Next Appt Details Provider Name:Fabrice Crain, 04/11/2025 10:00:00 AM, [address] [place] [address] [place], [address], Progress Notes * GEMMA CANDELARIOB:[birth year] (78 yo F)Acc No.[id number]:10/16/2023 Patient: Carlos TREY DE LA PAZ :1945 A ge:78 Y S ex:Female [address] [facility] [place], [address] * true * Date: Generated for Printi ng/Faxing/eTransmitting on: 0 02/07/2025 10:41 AM EDT
--- OUTSIDE RECORDS SUMMARY | 2023-10-27 06:30 | XMS_ITS ---
Author Organization [facility] Address [address] [place] [address] Care Team Providers Care Cad Operator Name Role Phone Sal (RETIRED) Dannie SHIELDS Primary Care Provide r Unavailable Fabrice Blanchard Unavailable [phone] REASON FOR VISIT screening,hx polyps,gerd Problems Problem Type SNOMED Code ICD Code Onset Dates Problem Status W/U Status Risk Notes Problem Diverticular disease of colon (122128298) Diverticulosis of large intestine without perforation or abscess without bleeding (K57.30) Active confirmed Problem Gastro-esophagea l reflux disease without esophagitis (752780021) Gastro-esophageal reflux disease without esophagitis (K21.9) Active confirmed Encounters Encounter Location Date Provider Diagnosis [facility] Outpatient 5 [place], [place] [phone] 10/27/2023 Fabrice Blanchard Encounter for scre ening [...] * TREY BROWN IDOB:1944 (79 yo F)Acc No.[id number]:10/27/2023 EGD and COL/MAC Patient: TREY KOWALSKI I Provider: Tory Blanchard MD :1945 A ge:78 Y S ex:Female Date:10/27/2023 Address:[address] [place] [address] , [id number] Pcp:Dannie Huang (RETIRED )MD Subjective: * Chief [...] FLW-UP 10 YRS DOCD, Modifiers: 1P , 65582 UPPR GI ENDOSCOPY, DIAGNOSIS * * The named appointment provid er may or may not be the originator of this progress note, and it is not deemed complete until electronically signed by the appointment provider. Sign off status: Pending * Provider: Tory Blanchard MD Date: 0 10/27/2023 Generated for Bryan lee/Emily/Reneaitting on: 0 02/07/2025 10:41 AM EDT
--- OUTSIDE RECORDS SUMMARY | 2023-12-01 06:30 | XMS_ITS ---
Author Organization Fabrice Crain III, MD Address [address] [place] [address] Care Team Providers Care Bottom Hoop Driver Name Role Phone Dannie Huang MD Primary Care Provider Fabrice Butcher Unavailable [phone] Allergies Allergen (clinical drug ingredient) Drug/Non Drug [...] Benzonatate 100 MG TAKE 1 CAPSULE BY [facility] EVERY 8 HOURS NEEDED FOR COUGH Oral Active Albuterol Sulfate HFA 108 (90 Base) MCG/ACT 1 puff as needed Inhalation every 4 hrs Active Zoryve 0.3 % 1 application Last Model Department Supervisor ally Once a day Active LORazepam 1 [...] Problem Status W/U Status Risk Notes Problem [id number] Other obesity (E66.8) Active confirmed Her body [...] Date Provider Diagnosis Fabrice Crain III, MD [address] [place] [address] [place] [address] 12/01/2023 Fabrice Crain Malignant neoplasm o f [...] Benzonatate 100 MG TAKE 1 CAPSULE BY [facility] EVERY 8 HOURS NEEDED FOR COUGH Oral Albuterol Sulfate HFA 108 (9 0 Base) MCG/ACT 1 puff as needed Inhalation every 4 hrs Zoryve 0.3 % 1 application Last Model Department Supervisor ally Once a day LORazepam 1 MG [...] OV Provider Name:Fabrice Crain, 04/11/2025 10:00:00 AM, [address] [place] [address] STEFANY BROWN, [place], [address], Progress Notes * JUVENTINO CANDELARIO:[birth year] (78 yo F)Acc No.[id number]:12/01/2023 Progress Notes Patient: TREY KOWALSKI Provider: Tory Crain MD :1945 A ge:78 Y S ex:Female Date:12/01/2023 Address:[address] [place], [place] [address] [place], [id number] Pcp:Dannie Huang MD Subjective: * Chief Complaints: [...] mg/dL) 52 (Ref Range: mg/dL) * Lab:Comprehensive [place]. Pane l Fast * Order Date 11/13/2023 [...] 12/01/2023 Generated for Bryan lee/Faxing/eTransmitting on: 0 02/07/2025 10:41 AM EDT History and Physical Notes * HPI (History of Present Illness) Category Sub-Category Detail Notes COVID-19 Screening Questions Have you had any new onset fever, chills, cough, congestion, sore throat, shortness of breath, muscle aches?: No Have you been exposed to the virus withi n the last 10 days?: No Have you travelled internationally in [facility] last 10 days?: No Have [...]
--- OUTSIDE RECORDS SUMMARY | 2024-04-05 07:00 | XMS_ITS ---
Author Organization Fabrice Crain III, MD Address [address] [place] [address] Care Team Providers Care Janitor Helper Name Role Phone Dannie Huang MD Primary Care Provider Fabrice Butcher Unavailable [phone] Allergies Allergen (clinical drug ingredient) Drug/Non Drug [...] day Active Zoryve 0.3 % 1 application Pharmacy Clinical Coordinator ally Once a day Active Benzonatate 100 MG TAKE 1 CAPSULE BY 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 EVERY 8 HOURS NEEDED FOR [...] check-up Provider Name:Fabrice Crain, 04/11/2025 10:00:00 AM, [address] [place] [address], [phone], Progress Notes * GEMMA CANDELARIOB:[birth year] (79 yo F)Acc No.[id number]:04/05/2024 Progress Notes Patient: TREY KOWALSKI Provider: Tory Crain MD :1945 A ge:79 Y S ex:Female Date:04/05/2024 Address:[address] [place], [place] [address]R[place] [id number] Pcp:Dannie Huang MD Subjective: * Chief Complaints: [...] 06/05/2023 Generated for Printi ng/Emily/eTransmitting on: 0 02/07/2025 10:42 AM EDT History and Physical Notes * HPI (History of Present Illness) Category Sub-Category Detail Notes COVID-19 Screening Questions Have you had any new onset fever, chills, cough, congestion, sore throat, shortness of breath, muscle aches?: No Have you been exposed to the virus withi n the last 10 days?: No Have you travelled internationally in [facility] last 10 days?: No Have you [...]
--- OUTSIDE RECORDS SUMMARY | 2024-09-26 11:45 | XMS_ITS ---
Author Organization [facility] Address [address] [facility] [place] [address] Care Team Providers Care Block Cutter Name Role Phone OmarJessica castroah Primary Care Provider Malik Alebrt Unavailable [phone] Radha Weir Unavailable [phone] Allergies Allergen (clinical drug ingredient) Drug/Non Drug [...] Active Encounters Encounter Location Date Provider Diagnosis [facility] [address] [address] 09/26/2024 Radha Weir Plan Of Treatment Next Appt Details Provider Name:Malik Clements , 05/09/2025 11:45:00 AM, [address] [place] [address], [phone], Progress Notes * Ahsan CANDELARIOB:[birth year] (79 yo F)Acc No.[id number]:09/26/2024 Progress Note Patient: Julienne KOWALSKI Provider: Mikel Weir DPM :1945 A ge:79 Y S ex:Female Date:09/26/2024 Address:[address] [place], [place] [phone] Pcp:Karin Nelson Subjective: * Chief Complaints: * [...] 0 09/26/2024 Generated for Bryan lee/Emily/Reneaitting on: 0 02/07/2025 10:41 AM EDT
--- OUTSIDE RECORDS SUMMARY | 2024-10-04 07:00 | XMS_ITS ---
Author Organization Fabrice Crain III, MD Address [address] [facility] [facility] [address] [place] [address] Care Team Providers Care Engineer Chief Name Role Phone Dannie Huang MD Primary Care Provider Fabrice Butcher Unavailable [phone] Allergies Allergen (clinical drug ingredient) Drug/Non Drug [...] Benzonatate 100 MG TAKE 1 CAPSULE BY [facility] EVERY 8 HOURS NEEDED FOR COUGH [...] day Active Zoryve 0.3 % 1 application Mexican Food Maker ally Once a day Active Social [...] Problem Status W/U Status Risk Notes Problem [id number] Malignant neoplasm of lower lobe of left [...] Provider Diagnosis Fabrice Crain III, MD [address] [place] [address] [place] [address] 10/04/2024 Fabrice Crain Malignant neoplasm o f [...] Benzonatate 100 MG TAKE 1 CAPSULE BY [facility] EVERY 8 HOURS NEEDED FOR COUGH [...] a day Zoryve 0.3 % 1 application Mexican Food Maker ally Once a day Next Appt Details Follow Up: 6 Months, Reason: ov Provider Name:Fabrice Brandtrne, 04/11/2025 10:00:00 AM, [address] [place] [address] [address] [place], [place], [address], Progress Notes * JUVENTINO CANDELARIO:[birth year] (79 yo F)Acc No.[id number]:10/04/2024 Progress Notes Patient: TREY KOWALSKI Provider: Tory Crain MD :1945 A ge:79 Y S ex:Female Date:10/04/2024 Address:[address] [place], [place] [id number] Pcp:Dannie Huang MD Subjective: * Chief Complaints: [...] June and moved innto an apartment in [place] near her workplace. On October 08, 2024. Her thoracic surgeon, Dr. Cheng, has ordered a CT scan of her chest for surveillance purposes. She has a new primary care physician, Dr. Fuentes, at [facility], who has put her on sertraline [...] 0 10/04/2024 Generated for Bryan lee/Emily/Evysmitting on: 0 02/07/2025 10:42 AM EDT History [...]
--- NOTE | 2025-02-07 10:06 | A.OFFPC_ITS ---
Vital Signs 02/07/25 10:14 Height 5 ft 4 in Weight 155 lb BMI 26.6 BP 128/56 L Blood Pressure Location Rt brachial Position Sitting Respiration 16 Pulse 67 Pulse Source Pulse Oximeter Temp 97.3 F Temp Source Temporal Artery Scan Pulse Oximetry (%) 98 Oxygen Delivery Method Room Air Intake Visit Reasons: 3 Month F/U Industrial Seamstress Required: No Accompanied by: Self / Same As Patient Allergies niacin (Niacin) Allergy (Mild, Verified 02/07/25 10:06) RASH lactose (Lactose) Adverse Reaction (Mild, Verified 02/07/25 10:06) DIARRHEA atorvastatin (Lipitor) Adverse Reaction (Unknown, Verified 02/07/25 10:06) Unknown celecoxib (Celebrex) Adverse Reaction (Unknown, Verified 02/07/25 10:06) Unknown simvastatin Adverse Reaction (Unknown, Verified 02/07/25 10:06) Unknown Tobacco use date assessed: 10/03/24 Fall risk assessment: No Falls in past year Last assessed Fall Risk: 02/07/25 Dental Screening Dental Screen Date: 10/03/24 Did you have a dental visit in the last 12 months?: Yes HPI HPI Comments History of Present Illness Details The patient is a 79-year-old female presenting with the primary reason for visit being medication review and follow-up care for hypertension, headaches, and insomnia. She recently had an episode where her headache and blood pressure increased significantly, prompting a prior hospitalization. The patient reports chronic headaches that are severe and persistent, described as feeling like a punch to the eye, which have not been relieved by Tylenol. Additionally, she experienced a mini-stroke and temporary loss of vision in her right eye, which was a distressing event. The patient has been on antihypertensive medications, previously including hydralazine which has been discontinued, and her blood pressure is now stable. Historical insomnia is exacerbated by headaches and is reportedly managed with lorazepam, which she is currently tapering off due to concerns about dependence. She also reports a chronic cough and has been referred to a ed educational aide for further evaluation. There is a history of elevated blood pressure up to 230 systolic, which necessitated urgent medical intervention. 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 - No daytime napping habits. - Consumes one cup of decaf coffee in morning. [facility] Medical History (Updated 02/07/25 @ 10:50 by Alex Mensah MD) Insomnia Peptic ulcer Lung cancer Psoriasis Type 2 diabetes mellitus GERD (gastroesophageal reflux disease) Osteopenia Pulmonary nodule Depression Fibromyalgia IBS (irritable bowel syndrome) High cholesterol HTN (hypertension) Chronic cough Allergic rhinitis Cough due to bronchospasm Surgical History Hx of bladder repair surgery S/P lobectomy of lung History of tubal ligation History of esophagogastroduodenoscopy (EGD) History of laparoscopic cholecystectomy History of colonoscopy (~10/27/23) Family History Father Myocardial infarction Mother Diabetic coma Sister No problems noted. 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 How often do you have a drink containing alcohol?: Never 3. How often do you have six or more drinks on one occasion?: Never Total Score: 0 AREN-7 AMB Questionnaire AREN-7 Date AREN - 7 assessed: 12/05/24 Source: Developed by Drs. Fabrice Barraza, Juliette Aburto, Ricky Mclain and colleagues, with an educational juan daniel from [employer]. Review of Systems Const Details: - Neurological: Reports chronic headache, temporary vision loss in the right eye - Respiratory: Reports chronic cough - Psychological: Reports insomnia All systems reviewed & are unremarkable except as noted in HPI and below Physical exam (Primary Care) Vital Signs: Last Vital Signs Temp 97.3 F 02/07/25 10:14 Pulse 67 02/07/25 10:14 Resp 16 02/07/25 10:14 BP 128/56 L 02/07/25 10:14 Pulse Ox 98 02/07/25 10:14 Oxygen Delivery Method Room Air 02/07/25 10:14 BMI result Body Mass Index 26.6 Tobacco/Smoking Status: Tobacco use Status Tobacco use date assessed 10/03/24 02/07/25 10:08 Patient Tobacco Use Status Former Tobacco user 02/07/25 10:08 Tobacco use type Cigarette 02/07/25 10:17 e-Cigarette/Vaping Use Never Used 02/07/25 10:08 Thrive Assessment: Date of Thrive Assessment Date Thrive assessed 02/04/25 02/07/25 10:08 Const Other: General: Alert and oriented, Well nourished, No acute distress. Eye: Pupils are equal, round and reactive to light, Intact accommodation, Extraocular movements are intact, Normal conjunctiva, Vision unchanged, but patient reports loss of vision in the right eye. HENT: Normocephalic, Atraumatic, Tympanic membranes are clear, Normal hearing, Oral mucosa is moist, No pharyngeal erythema, Ear canals patent. Respiratory: Lungs CTA bilaterally, No wheeze, Respirations are non-labored. Cardiovascular: Regular rate, Regular rhythm, S1 auscultated, S2 auscultated, No murmur, Good pulses equal in all extremities, Normal peripheral perfusion, No edema. Gastrointestinal: Soft, Non-tender, Non-distended, Normal bowel sounds, No organomegaly. Musculoskeletal: Normal range of motion, Normal strength, No tenderness, No swelling, No deformity, Normal gait. Integumentary: Warm, Dry, [place], Intact. Neurologic: Alert, Oriented, Normal sensory, Normal motor function, No focal defects, Cranial Nerves II-XII are grossly intact, Normal deep tendon reflexes, but patient reports a headache and history of a mini-stroke. Psychiatric: Cooperative, Appropriate mood & affect, Normal judgment. Coding Level of Care Code Est Pt Level 4 (79475) Complex EM visit Add On G2211 Diagnoses Hypertension, unspecified type I10 Hypertension type: unspecified Chronic cough R05.3 Drug-induced insomnia F19.982 Insomnia type: drug-induced Transient visual loss of right eye H53.121 Assessment & Plan Assessment & Plan (1) HTN (hypertension): Comment: Recently admitted to the hospital for hypertensive emergency and had change in open medications to Coreg 6.25 mg b.i.d., and continue home lisinopril dose. In addition hydralazine dose discontinue Has had improvement in pressure is significantly and we will continue the same at this time. Code(s): I10 - Essential (primary) hypertension Category: Medical Qualifiers: Hypertension type: unspecified Qualified Code(s): I10 - Essential (primary) hypertension (2) Chronic cough: Comment: Has had a extensive history of chronic cough and has attempted multiple medications such as duloxetine, benzoate, famotidine, omeprazole which have all resulted in minimal improvement in her cough. Does report occasionally she has changes in her cough here and there however is unable to acertain any cause or medication to help. Have asked her to refrain from all medications for short periods and observe for improvement in sytmptoms Will refer to pulmonology (referred during hospitalization) for further evaluation Code(s): R05.3 - Chronic cough Category: Medical (3) Insomnia: Comment: Has been chronically on lorazepam and during last clinic visit was decided to taper down from 1 mg b.i.d. to no further lorazepam over an extended period of time. As of now has tapered down to 0.5 mg in the morning and 1 mg in the evening. Starting next week we will drop to 0.5 mg morning and evening before switching to only 0.5 q.h.s. and discontinue the medications. Reinforced behavioral changes that are needed in order to maintain sleep hygiene Code(s): G47.00 - Insomnia, unspecified Category: Medical Qualifiers: Insomnia type: drug-induced Qualified Code(s): F19.982 - Other psychoactive substance use, unspecified with psychoactive substance-induced sleep disorder (4) Transient visual loss of right eye: Comment: Admitted to the hospital for hypertensive emergency with vision loss. MRI not suggestive stroke with imaging unremarkable. Likely secondary to uncontrolled blood pressure. Patient informed of results and reinforced the need for better blood pressure control Code(s): H53.121 - Transient visual loss, right eye Category: Medical Plan During our conversation, we thoroughly discussed the patient's current issues, which include hypertension, chronic headache, and insomnia. Her medication regimen was reviewed, specifically the discontinuation of hydralazine and adjustment of Coreg dosage. Emphasis was placed on the importance of tapering off lorazepam to avoid dependency, complemented by behavioral changes to improve sleep quality. I outlined the potential risks of benzodiazepines, such as increased fall risk and dependence. Additionally, the patient was informed that melatonin is a suitable alternative to aid her sleep problems. Finally, I assured her that she does not need to worry about arranging any further appointments or referrals herself, as these will be coordinated by the responsible clinics. Orders: Referrals Pulmonology Referral R05.3 - Chronic cough Neurology Referral I16.1 - Hypertensive emergency Patient Instructions: - Continue current medication regimen, monitoring blood pressure regularly. - Follow the prescribed schedule to taper off lorazepam. - Implement sleep hygiene practices - avoid daytime naps, limit evening caffeine. - Use melatonin if necessary for sleep assistance. - Contact your designated ed educational aide for further evaluation of the cough. - Adopt dietary modifications, including reducing sodium intake. - Attend all follow-up appointments as scheduled.
[2025-02-07 10:14] VITALS: BP 128/56; PULSE 67; RESP 16; TEMP 36.3; O2SAT 98; BMI 26.6
--- OUTSIDE RECORDS SUMMARY | 2025-02-07 10:41 | XMS_ITS | Patient Health Record ---
Author Organization Fabrice Crain III, MD Address [address] [address] Care Team Providers Care Diet Consultant Name Role Phone Dannie Huang MD Primary Care Provider Fabrice Butcher Unavailable [phone] Allergies Allergen (clinical drug ingredient) Drug/Non Drug [...] day Active Zoryve 0.3 % 1 application Staffing Specialist ally Once a day Active Benzonatate 100 MG TAKE 1 CAPSULE BY [facility] EVERY 8 HOURS NEEDED FOR COUGH Oral [...] Problem Status W/U Status Risk Notes Problem 2596657 Former smoker (Z87.891) Active confirmed She seems highly motivated not to smoke and we discussed strategies for prevention of relapse in times of stress and illness. Problem 660588186 Fibromyalgia (M79.7) Active confirmed She has occasional low-grade abdominal discomfort. Problem 850327955176 Type 2 diabetes mellitus with other specified complication (E11.69) Active confirmed She will continue on current therapy. Her fasting glucose levels have been under 150. She has been compliant with her medication. Problem 595473771 Other obesity (E66.8) Active confirmed Her body mass index is 30. We have discussed her weight loss strategy. We discussed diet and nutrition. We made a plan to lose weight at a rate of one half of a pound per week. Problem 97730158 Hyperlipidemia, unspecified (E78.5) Active confirmed Her lipids are well controlled and she will continue on her current regimen. Problem 99250523 Age-related osteoporosis without current pathological fracture (M81.0) Active confirmed She is asymptomatic at this time. Problem 56339738 Essential hypertension (I10) Active confirmed Her blood pressure is controlled and no change in her regimen as necessary. Problem 764492384 Gastroesophageal reflux disease without esophagitis (K21.9) Active confirmed She has occasional reflux, well-controll ed medication and no other therapy is necessary at this time. Problem Anemia (979522284) Anemia, unspecified type (D64.9) Active confirmed She has a mild microcytic anemia with a ferritin over 100. The microcytosis is new. She'll be followed carefully. It does not require treatment at this time. Problem 061721462 Malignant neopla sm of lower lobe of left lung (C34.32) Active confirmed There is no sign of recurrent disease at this time. Incisions are healed and the pain is slowly resolving. She has been scheduled for a followup CT scan of the chest by her thoracic surgeon next month. 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 Vital Signs Heart Rate 76 /min 10/04/2024 Temperature 98.1 degrees Fahrenheit 10/04/2024 Blood pressure diastolic 78 mm Hg 10/04/2024 Height 60 in 10/04/2024 Blood pressure systolic 140 mm Hg 10/04/2024 Weight 157 lbs 10/04/2024 BMI 30.66 kg/m2 10/04/2024 Encounters Encounter Location Date Provider Diagnosis Fabrice Crain III, MD [address] [place] [address] [address] [place], [place] [id number] 04/05/2024 Fabrice Crain Malignant neoplasm o f lower lobe of left lung C34.32 ; Former smoker Z87.891 ; Gastroesophageal reflux disease without esophagitis K21.9 ; Essential hypertension I10 ; Type 2 diabetes mellitus with other specified complication E11.69 ; Hyperlipidemia, unspecified E78.5 and Age-related osteoporosis without current pathological fracture M81.0 Fabrice Crain III, MD [address] [place] [address] [place] [id number] 10/04/2024 Fabrice Crain Malignant neoplasm o f [...] Details Provider Name:Fabrice Crain, 04/11/2025 10:00:00 AM, [address] [place] [address] DR, [place] [address], [place], [address], Insurance Providers Payer Name Payer Address Payer Phone Subscriber Number Group Number Insured Name Patient Relationship to Insured Coverage Start Date Coverage End Date MEDICARE NGS [address] [place] [phone] [id number] TREY TEE Self - patient is the insured [address] [facility] [phone] [id number] GIANNATREY DAVIES Self - patient is the insured Medical (General) History Medical History History ICD Code Essential hypertension I10 Fibromyalgia M79.7 hiatal hernia hyperlipidemia osteoarthritis diabetes mellitus essential hypertension osteoporosis GERD overweight former smoker Stage I adenocarcinoma of th e lung, Left lower lobe, April 2023, [facility] Surgical History Surgery Date(Month/Year) Lung surgery, Left lower lobe 04/07/2023 colonoscopy, Dr. Blanchard 2013 Bladder suspention 1992 choleycystectomy 2005 Tubal ligation 1985 Hospitalization History Reason Date(Month/Year) Hospitalization for ' s parkinson's, alzheimer's, and dementia - september, current year
--- OUTSIDE RECORDS SUMMARY | 2025-02-07 10:42 | XMS_ITS | Patient Health Record ---
Author Organization [facility] Address [address] [place] [address] Care Team Providers Care Patient Appointment Coordinator Name Role Phone Sal (RETIRED) Dannie SHIELDS Primary Care Provide r Unavailable Fabrice Blanchard Unavailable [phone] Allergies Allergen (clinical drug ingredient) Drug/Non Drug [...] Problem Gastro-esophage al reflux disease without esophagitis (312866176) Gastro-esophageal reflux disease without esophagitis (K21.9) Active confirmed Problem 524692740 Encounter for screening for malignant neoplasm of colon (Z12.11) Active confirmed Problem 489399189 History of adenomatous polyp of colon (Z86.010) Active confirmed Problem Diverticular disease of colon (679554469) Diverticulosis of large intestine without perforation or abscess without bleeding (K57.30) Active confirmed Problem 633408249 Generalized abdominal pain (R10.84) Active confirmed Problem 584938310 Gastroesophageal reflux disease, esophagitis presence not specified (K21.9) Active confirmed Problem 23543813 Irritable bowel syndrome with both constipation and diarrhea (K58.2) Active confirmed Problem Chronic cough (31868010) Chronic cough (R05.3) Active confirmed Plan Of [...] Date MEDICARE OF [place] [address] [place] [address] [id number] TREY TEE Self - patient is the insured [facility] [address] [place] [address] [phone] [id number] TREY TEE Self - patient is the [...] LLL lung resection for cancer-Dr. Shaffer at [facility] 04/07/2023
--- OUTSIDE RECORDS SUMMARY | 2025-02-07 10:42 | XMS_ITS | Clinical Summary ---
Author Organization [facility] Address [address] [place] [address] Phone Care Team Providers Care Promotions Manager Name Role Phone Dannie Huang MD Primary Care Provider [phone] Allergies Active Allergy Reactions Criticality Noted Date [...] general and how their size shape and plant changer time affect her level of suspicion [...] no dule DM2 (diabetes mellitus, type 2) ([facility] V24, [facility] V28) DX:DM2 (diabetes mellitus, t ype 2) ([facility]) Anemia DX:Anemia Mild intermittent asthma, uncomplicated DX:Mild [...] COVID-19 Vaccine ( - 2023-2 5 season) 2025 03/16/2024, 07/05/2021, 09/09/2020 Influenza Vaccine (#1) 2025 [...] to complete this topic Insurance MEDICARE [facility] Care Teams Promotions Manager Relationship Specialty Start Date End Date Dannie Huang MD [address] [place] [address] [address] ROSA Garner PCP - General 03/22/18
--- OUTSIDE RECORDS SUMMARY | 2025-02-07 10:42 | XMS_ITS | Patient Health Record ---
[facility] Organization [facility] Address [address] [facility] [place] [address] Care Team Providers Care Senior Rd Engineer Name Role Phone OmarKarin castro Primary Care Provider UnavailMalik Cain Unavailable [phone] Param Syed Unavailable [phone] Radha Weir Unavailable [phone] Allergies Allergen (clinical drug ingredient) Drug/Non Drug [...] Problem Acquired hammer toe of right foot (8280185366551872 ) Other hammer toe(s) (acquired), right foot (M20.41) Active confirmed Problem Acquired hammer toe of left foot (3531062355725460 ) Other hammer toe(s) (acquired), left foot (M20.42) Active confirmed Problem Polyneuropathy due to type 2 diabetes mellitus (551543378) Type 2 diabetes mellitus with diabetic polyneuropathy (E11.42) Active confirmed Vital Signs Blood pressure diastolic 65 mm Hg 01/10/2025 Height 5 ft 4 in in 01/10/2025 Blood pressure systolic 120 mm Hg 01/10/2025 Weight 157 lbs 01/10/2025 BMI 26.95 kg/m2 01/10/2025 Procedures Procedure Date Ordered Date Performed Result Body Sit e 13205-SGODURU NAIL, 6 OR MORE 06/03/2024 N/A 84665-HVEI SKIN LESIONS, OVER 4 06/03/2024 N/A 47675-YBLYPEI NAIL, 6 OR MORE 10/08/2024 N/A 79758-TRAA SKIN LESIONS, OVER 4 10/08/2024 N/A 16153-GCAYLKC NAIL, 6 OR MORE 01/10/2025 N/A 71488-XRAK SKIN LESIONS, OVER 4 01/10/2025 N/A Encounters Encounter Location Date Provider Diagnosis [address] [address] 02/22/2024 Param Syed Tinea unguium B35.1 ; Type 2 diabetes mellitus with diabetic polyneuropathy E11.42 ; Pain in right toe(s) M79.674 ; Pain in left toe(s) M79.675 ; Hallux valgus (acquired), left foot M20.12 ; Hallux valgus (acquired), right foot M20.11 ; Ingrowing nail L60.0 ; Primary osteoarthritis, left ankle and foot M19.072 and Metatarsalgia, right foot M77.[address] [address] 06/03/2024 Radha Weir Type 2 diabetes mellitus with diabetic polyneuropathy E11.42 and Tinea unguium B35.[address] [address] 10/08/2024 Malik Clements Type 2 diabetes mellitus with diabetic polyneuropathy E11.42 ; Tinea unguium B35.1 ; Other hammer toe(s) (acquired), right foot M20.41 and Other hammer toe(s) (acquired), left foot M20.42 [facility] [address] [address] 01/10/2025 Malik Clements Type 2 diabetes mellitus with diabetic polyneuropathy E11.42 and Tinea unguium B35.[address] [address] 09/24/2024 Radha Weir Assessments Encounter Date Diagnosis [...] X ray : Ankle, left 3V 11/15/2018 67227-LUCRUYI NAIL, 6 OR MORE 05/17/2018 28620-YFHUYNZ NAIL, 6 OR MORE 06/03/2024 13418-HQPEXZW NAIL, 6 OR MORE 10/08/2024 68935-MDVEEMV NAIL, 6 OR MORE 01/10/2025 86020-RTRFFBT NAIL, 6 OR MORE 02/23/2011 80449-BJQSXDT NAIL, 6 OR MORE 05/11/2011 05229-YCKWSOS NAIL, 6 OR MORE 07/20/2011 58794-DSTHTIF NAIL, 6 OR MORE 10/03/2011 07185-EPLNQEF NAIL, 6 OR MORE 12/12/2011 95967-OSKSXTI NAIL, 6 OR MORE 02/22/2012 02725-RNHNSRX NAIL, 6 OR MORE 05/09/2012 52719-EGQONVV NAIL, 6 OR MORE 08/08/2012 07346-LPHYNBA NAIL, 6 OR MORE 11/08/2012 00301-MVOTDCH NAIL, 6 OR MORE 01/30/2013 41822-ZCVPWOQ NAIL, 6 OR MORE 04/24/2013 83960-DANPDCH NAIL, 6 OR MORE 07/03/2013 40803-WIGZJEA NAIL, 6 OR MORE 09/16/2013 84319-KQKSAEP NAIL, 6 OR MORE 12/23/2013 34530-ZXCIRWP NAIL, 6 OR MORE 03/27/2014 40503-WRTEVMZ NAIL, 6 OR MORE 06/09/2014 62369-VFRDOWV NAIL, 6 OR MORE 08/18/2014 16769-YBPAUTT NAIL, 6 OR MORE 10/29/2014 27212-WEUMHAA NAIL, 6 OR MORE 01/12/2015 53450-NXGUCRB NAIL, 6 OR MORE 04/13/2015 46558-HDLYICU NAIL, 6 OR MORE 06/29/2015 25969-KIGQLIM NAIL, 6 OR MORE 09/14/2015 22329-KIWGEVC NAIL, 6 OR MORE 12/17/2015 49675-FUYSHNY NAIL, 6 OR MORE 03/17/2016 94086-XONXMGQ NAIL, 6 OR MORE 06/16/2016 88927-QVQNUMF NAIL, 6 OR MORE 08/18/2016 61646-IHOGCIC NAIL, 6 OR MORE 11/16/2016 56643-MLZYUPW NAIL, 6 OR MORE 02/16/2017 93247-FJIQDRN NAIL, 6 OR MORE 05/18/2017 29024-ZRSLYRY NAIL, 6 OR MORE 08/17/2017 06072-YRCSXSY NAIL, 6 OR MORE 11/16/2017 56094-BCLFJVZ NAIL, 6 OR MORE 02/15/2018 81462-Ucmakjzf Plate 05/18/2017 38008-Vuvamusx Plate 10/29/2014 37037-Rffljlak Plate 08/18/2014 99166-Ahivonet Plate 06/09/2014 25282-Llfhcafw Plate 03/27/2014 53212-RIAM SKIN LESIONS, OVER 4 01/11/20 25 09401-JWWQ SKIN LESIONS, OVER 4 10/09/19 25 38206-FWFA SKIN LESIONS, OVER 4 06/03/20 24 37383-OJHX SKIN LESIONS, OVER 4 08/17/19 19 99559-ZCGN SKIN LESIONS, OVER 4 11/16/19 19 09377-GXJQ SKIN LESIONS, OVER 4 03/14/20 19 74497-VCET SKIN LESIONS, OVER 4 06/17/19 20 47933-XVYO SKIN LESIONS, OVER 4 10/17/19 20 58339-AAXB SKIN LESIONS, OVER 4 01/22/20 20 00450-YHPU SKIN LESIONS, OVER 4 04/22/20 20 48720-WNRG SKIN LESIONS, OVER 4 07/29/19 21 29426-ODVO SKIN LESIONS, OVER 4 10/29/19 21 49767-KBLV SKIN LESIONS, OVER 4 01/28/20 21 23656-DUYP SKIN LESIONS, OVER 4 04/28/20 21 88817-EDJX SKIN LESIONS, OVER 4 08/05/19 22 66875-QJKT SKIN LESIONS, OVER 4 06/09/19 15 12226-FEBF SKIN LESIONS, OVER 4 03/27/20 14 79172-MIYO SKIN LESIONS, OVER 4 12/24/19 14 27676-JWAH SKIN LESIONS, OVER 4 09/17/19 14 46299-YYOV SKIN LESIONS, OVER 4 07/03/19 14 64308-YGLN SKIN LESIONS, OVER 4 04/24/20 13 70651-RWTT SKIN LESIONS, OVER 4 01/31/20 13 32277-SPQV SKIN LESIONS, OVER 4 11/09/19 13 80754-TAYW SKIN LESIONS, OVER 4 08/09/19 13 25976-REVT SKIN LESIONS, OVER 4 05/09/20 12 85298-UBWZ SKIN LESIONS, OVER 4 02/22/20 12 84241-CUQQ SKIN LESIONS, OVER 4 12/12/19 12 16997-UOFQ SKIN LESIONS, OVER 4 10/03/19 12 15026-JLBH SKIN LESIONS, OVER 4 07/20/19 12 26083-DNWG SKIN LESIONS, OVER 4 05/11/20 11 18739-BQFX SKIN LESIONS, OVER 4 02/24/20 11 83503-TURM SKIN LESIONS, OVER 4 08/19/19 15 66191-YWZU SKIN LESIONS, OVER 4 10/30/19 15 26580-RFBN SKIN LESIONS, OVER 4 04/13/20 15 48966-RGPL SKIN LESIONS, OVER 4 01/13/20 15 72880-NKYO SKIN LESIONS, OVER 4 03/17/20 16 86493-WZZJ SKIN LESIONS, OVER 4 12/17/19 16 57750-KUTD SKIN LESIONS, OVER 4 09/14/19 16 92104-LXRP SKIN LESIONS, OVER 4 06/29/19 16 60190-WWWS SKIN LESIONS, OVER 4 05/18/20 17 46769-EECW SKIN LESIONS, OVER 4 02/17/20 17 01621-EVEY SKIN LESIONS, OVER 4 08/19/19 17 82034-UAPL SKIN LESIONS, OVER 4 11/17/19 17 13382-CYBK SKIN LESIONS, OVER 4 06/16/19 17 10385-NKCJ SKIN LESIONS, OVER 4 05/17/20 18 01241-BQYH SKIN LESIONS, OVER 4 02/16/20 18 76692-HNSX SKIN LESIONS, OVER 4 11/17/19 18 61031-TJBE SKIN LESIONS, OVER 4 08/18/19 18 88871- Removal of Foreign Body, Subcut 0 06/17/2019 Next Appt Details Provider Name:Malik Clements , 05/09/2025 11:45:00 AM, [address] [facility], [place], [address], Insurance Providers Payer Name Payer Address Payer Phone Subscriber Number Group Number Insured Name Patient Relationship to Insured Coverage Start Date Coverage End Date Medicare National [employer] [address] [facility] [place] [address] [id number] Julienne Chand Self - patient is the insured [facility] [address] [facility] [place] [address] [phone] [id number] Julienne Chand Self - patient is [...] [facility] - Fell / concousin 01/07/17 [facility] for 2 day s roxie , for chest pain, high blood pressure and a head bump 03/2013
== END 2025-02-07 11:01 | disposition home or self-care (01) ==
PROVIDERS: PCP Student in an Organized Health Care Education/Training Program; Visit Provider Student in an Organized Health Care Education/Training Program
DX: I10 Essential (primary) hypertension (principal); R05.3 Chronic cough; F19.982 Other psychoactive substance use, unspecified with psychoactive substance-induced sleep disorder; H53.121 Transient visual loss, right eye

== ENCOUNTER → 2025-02-07 09:55 | Outpatient (BNVA) | payer MEDICARE, OTHER, SELFPAY | PROVIDERS: Visit Provider Student in an Organized Health Care Education/Training Program | DX: I10 Essential (primary) hypertension (principal); R05.3 Chronic cough; F19.982 Other psychoactive substance use, unspecified with psychoactive substance-induced sleep disorder; H53.121 Transient visual loss, right eye; I16.1 Hypertensive emergency; Z79.899 Other long term (current) drug therapy | CPT/HCPCS: 99212 ==

== ENCOUNTER 2025-02-14 12:46 | Outpatient (AMB) | payer MEDICARE, OTHER, SELFPAY ==
--- OUTSIDE RECORDS SUMMARY | 2023-08-29 11:00 | XMS_ITS ---
Author Organization [facility] Address [address] [place] [address] Care Team Providers Care Airplane Electrician Name Role Phone Sal (RETIRED) Dannie SHIELDS Primary Care Provide Fabrice Vergara [phone] REASON FOR VISIT abdominal pain Encounters Encounter Location Date Provider Diagnosis [facility] [address] [place] [address] 08/29/2023 Fabrice Blanchard Plan Of Treatment No Information Progress Notes * TREY BROWN IDOB:1944 (79 yo F)Acc No.[id number]:08/29/2023 Progress Notes Patient: TREY KOWALSKI I Provider: Tory Blanchard MD :1945 A ge:78 Y S ex:Female Date:08/29/2023 Address:[address] [place] [address] , [id number] Pcp:Dannie Huang (RETIRED )MD Subjective: * Chief [...] 08/29/2023 Generated for Printi ng/Faxing/eTransmitting on: 0 02/14/2025 03:06 PM EDT
--- OUTSIDE RECORDS SUMMARY | 2023-10-11 05:53 | XMS_ITS ---
Author Organization Fabrice Crain III, MD Address [address] [place] [address] [place] [address] Care Team Providers Care Viscose Cellar Charge Hand Name Role Phone Dannie Huang MD Primary Care Provider Fabrice Butcher Unavailable [phone] Chest W/ IV CONTRAST ORDER Social History Sex Assigned At : Social History Observation Description Sex Assigned At Female Encounters Encounter Location Date Provider Diagnosis Fabrice Crain III, MD [address] [place] [address] [place] [address] 10/11/2023 Fabrice Crain Malignant neoplasm of lower lobe of left lung C34.32 Assessments Encounter Date Diagnosis (ICD Code) Assessment Notes Treatment Notes Treatment Clinical Notes 10/11/2023 Malignant neoplasm of lower lobe of left lung (ICD-10 - C34.32) Plan Of Treatment Pending Test Test Name Order Date CT chest w con 10/11/2023 Next Appt Details Provider Name:Fabrice Crain, 04/11/2025 10:00:00 AM, [address] [place] [address] [place], [address], Progress Notes * KHOA CANDELARIOADOB:[birth year] (78 yo F)Acc No.[id number]:10/11/2023 Patient: KHOA KOWALSKIA :1945 A ge:78 Y S ex:Female [address] [facility] [place], [address] Subjective: * Chief Complaints: * C T Chest W/ IV CONTRAST ORDER * Medical History: * Surgical History: * Hospitalization/Major Diagno stic Procedure: * Medications: Objective: Assessment: * Assessment: 1. M alignant neoplasm of lower lobe of left lung - C34.32 Plan: * Treatment: * Procedure Codes: * true * Date: Generated for Bryan lee/Emily/Reneaitting on: 0 02/14/2025 03:08 PM EDT
--- OUTSIDE RECORDS SUMMARY | 2023-10-16 09:06 | XMS_ITS ---
Author Organization Fabrice Crain III, MD Address [address] [place] [address] [place] [address] Care Team Providers Care Water Filterer Helper Name Role Phone Dannie Huang MD Primary Care Provider Fabrice Butcher [phone] REASON FOR VISIT Regarding CT Chest Social History Sex Assigned At : Social History Observation Description Sex Assigned At Female Encounters Encounter Location Date Provider Diagnosis Fabrice Crain III, MD [address] [place] [address] [place] [address] 10/16/2023 Fabrice Crain Plan Of Treatment Next Appt Details Provider Name:Fabrice Crain, 04/11/2025 10:00:00 AM, [address] [place] [address] [place], [address], Progress Notes * GEMMA CANDELARIOB:[birth year] (78 yo F)Acc No.[id number]:10/16/2023 Patient: Carlos TREY DE LA PAZ :1945 A ge:78 Y S ex:Female Address:[address] [facility] [place], [address] * true * Date: Generated for Printi ng/Faxing/eTransmitting on: 0 02/14/2025 03:07 PM EDT
--- OUTSIDE RECORDS SUMMARY | 2023-10-27 06:30 | XMS_ITS ---
Author Organization [facility] Address [address] [place] [address] Care Team Providers Care Wet Finisher Wool Name Role Phone Sal (RETIRED) Dannie SHIELDS Primary Care Provide r Unavailable Fabrice Blanchard Unavailable [phone] REASON FOR VISIT screening,hx polyps,gerd Problems Problem Type SNOMED Code ICD Code Onset Dates Problem Status W/U Status Risk Notes Problem Diverticular disease of colon (254893454) Diverticulosis of large intestine without perforation or abscess without bleeding (K57.30) Active confirmed Problem Gastro-esophagea l reflux disease without esophagitis (831613157) Gastro-esophageal reflux disease without esophagitis (K21.9) Active confirmed Encounters Encounter Location Date Provider Diagnosis [facility] Outpatient [address] [place], [place] [phone] 10/27/2023 Fabrice Blanchard Encounter for scre ening [...] * TREY BROWN IDOB:1944 (79 yo F)Acc No.[id number]:10/27/2023 EGD and COL/MAC Patient: TREY KOWALSKI I Provider: Tory Blanchard MD :1945 A ge:78 Y S ex:Female Date:10/27/2023 Address:[address] [place] [address] , [id number] Pcp:Dannie Huang (RETIRED )MD Subjective: * Chief [...] FLW-UP 10 YRS DOCD, Modifiers: 1P , 61782 UPPR GI ENDOSCOPY, DIAGNOSIS * * The named appointment provid er may or may not be the originator of this progress note, and it is not deemed complete until electronically signed by the appointment provider. Sign off status: Pending * Provider: Tory Blanchard MD Date: 0 10/27/2023 Generated for Bryan lee/Emily/Reneaitting on: 0 02/14/2025 03:07 PM EDT
--- OUTSIDE RECORDS SUMMARY | 2023-12-01 06:30 | XMS_ITS ---
Author Organization Fabrice Crain III, MD Address [address] [place] [address] Care Team Providers Care Hand Tapper Name Role Phone Dannie Huang MD Primary Care Provider Fabrice Butcher Unavailable [phone] Allergies Allergen (clinical drug ingredient) Drug/Non Drug [...] Benzonatate 100 MG TAKE 1 CAPSULE BY [facility] EVERY 8 HOURS NEEDED FOR COUGH Oral Active Albuterol Sulfate HFA 108 (90 Base) MCG/ACT 1 puff as needed Inhalation every 4 hrs Active Zoryve 0.3 % 1 application Respiratory Physician ally Once a day Active LORazepam 1 [...] Problem Status W/U Status Risk Notes Problem [id number] Other obesity (E66.8) Active confirmed Her body [...] Date Provider Diagnosis Fabrice Crain III, MD [address] [place] [address] [place] [address] 12/01/2023 Fabrice Crain Malignant neoplasm o f [...] Benzonatate 100 MG TAKE 1 CAPSULE BY [facility] EVERY 8 HOURS NEEDED FOR COUGH Oral Albuterol Sulfate HFA 108 (9 0 Base) MCG/ACT 1 puff as needed Inhalation every 4 hrs Zoryve 0.3 % 1 application Respiratory Physician ally Once a day LORazepam 1 MG [...] OV Provider Name:Fabrice Crain, 04/11/2025 10:00:00 AM, [address] [place] [address] STEFANY BROWN, [place], [address], Progress Notes * JUVENTINO CANDELARIO:[birth year] (78 yo F)Acc No.[id number]:12/01/2023 Progress Notes Patient: TREY KOWALSKI Provider: Tory Crain MD :1945 A ge:78 Y S ex:Female Date:12/01/2023 Address:[address] [place], [place] [address] [place], [id number] Pcp:Dannie Huang MD Subjective: * Chief Complaints: [...] mg/dL) 52 (Ref Range: mg/dL) * Lab:Comprehensive [place]. Pane l Fast * Order Date 11/13/2023 [...] 12/01/2023 Generated for Bryan lee/Faxing/eTransmitting on: 0 02/14/2025 03:06 PM EDT History and Physical Notes * HPI (History of Present Illness) Category Sub-Category Detail Notes COVID-19 Screening Questions Have you had any new onset fever, chills, cough, congestion, sore throat, shortness of breath, muscle aches?: No Have you been exposed to the virus withi n the last 10 days?: No Have you travelled internationally in [facility] last 10 days?: No Have [...]
--- OUTSIDE RECORDS SUMMARY | 2024-04-05 07:00 | XMS_ITS ---
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 Vital Signs Temperature 97.4 degrees Fahrenheit 04/05/20 24 Blood pressure systolic 138 mm Hg 04/05/20 24 Blood pressure diastolic 77 mm Hg 024 Heart Rate 79 /min 04/05/2024 Height 60 in 04/05/2024 Weight 161 lbs 04/05/2024 BMI 31.44 kg/m2 04/05/2024 Encounters Encounter Location Date Provider Diagnosis Fabrice Crain III, MD [address] [place] [address] [place] [address] 04/05/2024 Fabrice Crain Malignant neoplasm o f [...] a day Zoryve 0.3 % 1 application General Utility Maintenance Repairer ally Once a day Benzonatate 100 MG TAKE 1 CAPSULE BY [facility] EVERY 8 HOURS NEEDED FOR COUGH [...] months, Reason: OV, Routine check-up Provider Name:Fabrice Crain, 04/11/2025 10:00:00 AM, [address] [place] [address], [address], Progress Notes * GEMMA CANDELARIOB:[birth year] (79 yo F)Acc No.[id number]:04/05/2024 Progress Notes Patient: TREY KOWALSKI Provider: Tory Crain MD :1945 A ge:79 Y S ex:Female Date:04/05/2024 Address:[address] [place], [place] [address]R[place] [id number] Pcp:Dannie Huang MD Subjective: * Chief Complaints: [...] of tobacco use and urged to quit. 1 06/05/2023 DM Care Plan: P atient Lifestyle [...] Tory Crain MD Date: 06/05/2023 Generated for Printi ng/Emily/eTransmitting on: 0 02/14/2025 03:07 PM EDT History and Physical Notes * HPI (History of Present Illness) Category Sub-Category Detail Notes COVID-19 Screening Questions Have you had any new onset fever, chills, cough, congestion, sore throat, shortness of breath, muscle aches?: No Have you been exposed to the virus withi n the last 10 days?: No Have you travelled internationally in [facility] last 10 days?: No Have you [...]
--- OUTSIDE RECORDS SUMMARY | 2024-09-26 11:45 | XMS_ITS ---
Author Organization [facility] Address [address] [place] [address] Care Team Providers Care Shoe Clerk Name Role Phone OmarJessica castroah Primary Care Provider Malik Albert Unavailable [phone] Radha Weir Unavailable [phone] Allergies Allergen (clinical drug ingredient) Drug/Non Drug [...] Active Encounters Encounter Location Date Provider Diagnosis [facility] [address] [address] 09/26/2024 Radha Weir Plan Of Treatment Next Appt Details Provider Name:Malik Clements , 05/09/2025 11:45:00 AM, [address] [place] [address], [phone], Progress Notes * Ahsan CANDELARIOB:[birth year] (79 yo F)Acc No.[id number]:09/26/2024 Progress Note Patient: Julienne KOWALSKI Provider: Mikel Weir DPM :1945 A ge:79 Y S ex:Female Date:09/26/2024 Address:[address] [place], [place] [id number] Pcp:Karin Nelson Subjective: * Chief Complaints: * [...] 09/26/2024 Generated for Bryan lee/Emily/Reneaitting on: 0 02/14/2025 03:07 PM EDT
--- OUTSIDE RECORDS SUMMARY | 2024-10-04 07:00 | XMS_ITS ---
Author Organization Fabrice Crain III, MD Address [address] [place] [address] Care Team Providers Care Vamp Marker Name Role Phone Dannie Huang MD Primary Care Provider Fabrice Butcher Unavailable [phone] Allergies Allergen (clinical drug ingredient) Drug/Non Drug [...] Benzonatate 100 MG TAKE 1 CAPSULE BY [facility] EVERY 8 HOURS NEEDED [...] day Active Zoryve 0.3 % 1 application Cable Tender ally Once a day Active Social History [...] Problem Status W/U Status Risk Notes Problem [id number] Malignant neoplasm of lower lobe of left [...] Date Provider Diagnosis Fabrice Crain III, MD [address] [place] [address] [place] [address] 10/04/2024 Fabrice Crain Malignant neoplasm o f [...] Benzonatate 100 MG TAKE 1 CAPSULE BY [facility] EVERY 8 HOURS NEEDED [...] a day Zoryve 0.3 % 1 application Cable Tender ally Once a day Next Appt Details Follow Up: 6 Months, Reason: ov Provider Name:Fabrice Brandtrne, 04/11/2025 10:00:00 AM, [address] [place] [address] [address] BROWN, [place], [address], Progress Notes * JUVENTINO CANDELARIO:[birth year] (79 yo F)Acc No.[id number]:10/04/2024 Progress Notes Patient: TREY KOWALSKI Provider: Toyr Crain MD :1945 A ge:79 Y S ex:Female Date:10/04/2024 Address:[address] [place], [place] [phone] Pcp:Dannie Huang MD Subjective: * Chief Complaints: [...] June and moved innto an apartment in [place] near her workplace. On October 08, 2024. Her thoracic surgeon, Dr. Cheng, has ordered a CT scan of her chest for surveillance purposes. She has a new primary care physician, Dr. Fuentes, at [facility], who has put her on sertraline [...] 10/04/2024 Generated for Bryan lee/Emily/Reneaitting on: 0 02/14/2025 03:08 PM EDT History and Physical Notes * [...]
--- NOTE | 2025-02-14 12:57 | A.OFFVIS_ITS ---
Vital Signs 02/14/25 12:58 Height 5 ft 4 in Weight 157 lb 6.561 oz BMI 27.0 BP 122/76 Blood Pressure Location Lt brachial Position Sitting Pulse 86 Pulse Source Pulse Oximeter Intake Visit Reasons: f/up Economic Development Specialist Required: No Accompanied by: Self / Same As Patient Allergies niacin (Niacin) Allergy (Mild, Verified 02/14/25 13:03) RASH lactose (Lactose) Adverse Reaction (Mild, Verified 02/14/25 13:03) DIARRHEA atorvastatin (Lipitor) Adverse Reaction (Unknown, Verified 02/14/25 13:03) Unknown celecoxib (Celebrex) Adverse Reaction (Unknown, Verified 02/14/25 13:03) Unknown simvastatin Adverse Reaction (Unknown, Verified 02/14/25 13:03) Unknown Medication List - Last Reconciled 02/14/25 by Asaf Mcleod NP acetaminophen (Tylenol) 325 mg PO QID PRN albuterol sulfate 90 mcg/actuation 2 puffs PO Q4-6H PRN aspirin 81 mg PO DAILY blood sugar diagnostic As directed blood-glucose meter As directed carvedilol 6.25 mg See Protocol PO BIDWM 30 days famotidine 20 mg PO BID 30 days fluticasone propionate 110 mcg/actuation 2 puffs inhalation BID FreeStyle Lite Strips (blood sugar diagnostic) once daily NS lancets As directed lisinopril 2.5 mg PO DAILY 30 days lorazepam 0.5 mg PO DAILY@1630 lorazepam 1 mg PO BEDTIME pravastatin 80 mg PO DAILY 90 days HPI Comments Details: This is a 79-year-old female patient coming in for a hospital discharge follow- up. Patient with a history of anxiety, hypertension, hyperlipidemia, diabetes, aortic stenosis, and coronary artery disease. Patient has been seen in the office for chest discomfort for which patient underwent myocardial perfusion that was normal and then after went a coronary CTA that showed mild coronary artery disease. Patient was in the hospital back in January for elevated blood pressures over 200 systolic. Patient was seen in the office after that where patient had mildly elevated blood pressures mostly due to her anxiety. Patient reports that she again had elevated blood pressures over 200 systolic with some blurry vision for which her primary care provider sent her to the emergency room. Neurology was consulted. MRI of the brain was negative. CTA of the head and neck showed 25-50% right carotid artery stenosis without any significant stenosis of the left. Patient's region returned to baseline. Patient was started on aspirin and pravastatin. Patient's medications were adjusted and was discharged home. Today, patient continues to report being stressed and anxious as she is still grieving her 's from back in May. Patient sta brian she is now on 1 mg lorazepam. Patient is otherwise denying any exertional chest pain, shortness of breath, palpitations, dizziness, orthopnea, PND, leg edema, presyncope, or syncope. Patient is reporting compliance with all her medications. [facility] Medical History Insomnia Peptic ulcer Lung cancer Psoriasis Type 2 diabetes mellitus GERD (gastroesophageal reflux disease) Osteopenia Pulmonary nodule Depression Fibromyalgia IBS (irritable bowel syndrome) High cholesterol HTN (hypertension) Chronic cough Allergic rhinitis Cough due to bronchospasm Surgical History Hx of bladder repair surgery S/P lobectomy of lung History of tubal ligation History of esophagogastroduodenoscopy (EGD) History of laparoscopic cholecystectomy History of colonoscopy (~10/27/23) Family History Father Myocardial infarction Mother Diabetic coma Sister No problems noted. 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 Cognitive needs: No Hearing needs: No Vision needs: Yes (Rx glasses) Review of Systems Const Denies daytime sleepiness, Denies difficulty sleeping, Denies snoring, Denies stops breathing during sleep and Denies weakness Card Denies chest pain, Denies rapid heart rate, Denies irregular heart rhythm, Denies claudication, Denies leg edema, Denies lightheadedness, Denies palpitati ons, Denies dyspnea, Denies dyspnea on exertion, Denies orthopnea, Denies paroxysmal nocturnal dyspnea and Denies slow heart rate Resp Denies cough, Denies dyspnea, Denies dyspnea on exertion and Denies snoring GI Reports no additional complaints, Denies hematochezia, Denies change in stool character and Denies dyspepsia Musc Denies abnormal gait, Denies muscle weakness and Denies numbness Neuro Denies abnormal gait, Denies numbness and Denies weakness Endo Denies palpitations Physical Exam Vital Signs: Last Vital Signs Pulse 86 02/14/25 12:58 BP 122/76 02/14/25 12:58 BMI result Body Mass Index 27.0 Const General: cooperative, healthy appearing, comfortable and no acute distress Orientation/consciousness: patient oriented x3 HEENT Head: Yes normal to inspection Neck Neck: Yes normal visual inspection, Yes trachea midline and Yes supple Chest Chest palpation & inspection: normal inspection of the chest Resp Effort & Inspection: normal respiratory effort Auscultation: clear to auscultation bilaterally, no crackles, no rales, no rhonchi and no wheezes Cardio Jugular venous distension: no JVD Palpation: normal PMI Rate: regular rate Rhythm: regular rhythm Heart sounds: S1 normal heart sound present, S2 normal heart sound present, no click, no gallops, Murmur heart sound present systolic and no rubs Peripheral pulses: Peripheral pulses 2+ throughout GI Inspection: Yes normal to inspection Palpation (GI): Soft to palpation Auscultation: normal bowel sounds Skin General skin exam: no rashes or lesions noted Neuro General: patient oriented x3 Extrem General: Yes normal to inspection, No no pedal edema and No calf tenderness Psych Appearance: grossly normal Mental Status: mental status grossly normal Speech and movement: Normal speech and movement present Assessment & Plan Assessment & Plan (1) HTN (hypertension): Code(s): I10 - Essential (primary) hypertension Category: Medical Qualifiers: Hypertension type: unspecified Qualified Code(s): I10 - Essential (primary) hypertension Plan: Recently in the hospital again for hypertensive management with question of TIA. Vision returned to baseline in the hospital. Following neurology. Patient's medications have been adjusted at discharge. Blood pressure today is stable. Continue carvedilol 6.25 mg b.i.d., lisinopril 2.5 mg daily. Advised monitoring blood pressures at home with a goal less than 130/80. Advised med compliance, and emphasis for the need of stress mitigation strategies. Advised low-salt diet. Patient is currently on anti anxiety lorazepam 1 mg daily. Patient thinks that this is helping some but could probably use SSRI. Following with PCP. (2) Non-rheumatic aortic stenosis: Code(s): I35.0 - Nonrheumatic aortic (valve) stenosis Category: Medical Plan: 01/24/2025-echo study showed hyperdynamic LV systolic function with an ejection fraction greater than 70% with impaired relaxation filling pattern, moderately enlarged left atrium, severe mitral annular calcification with mild aortic stenosis, and mildly dilated ascending aorta at 3.7 cm. Clinically stable and euvolemic. Continue aggressive blood pressure management. Continue aspirin therapy. (3) Coronary artery disease: Code(s): I25.10 - Atherosclerotic heart disease of [place] coronary artery without angina pectoris Category: Medical Plan: 11/08/2024-patient underwent a myocardial perfusion study which showed normal perfusion however for the stress portion of the test, patient had some ST- depression inferiorly and anterolaterally. 01/23/2025-patient underwent coronary CTA that showed no significant coronary artery disease, with small eccentric calcified plaque in the distal left main with less than 25% stenosis and into the proximal LAD with approximately 25% stenosis, and minimal noncalcified ostial stenosis versus artifact. Most recent LDL at 82. Continue pravastatin 80 mg. Continue statin therapy. (4) Hospital discharge follow-up: Code(s): Z09 - Encounter for follow-up examination after completed treatment for conditions other than malignant neoplasm Plan: As above. Advised heart healthy diet, regular exercise, stress mitigation strategies, med compliance, and management of vascular risk factors. Patient would like to see her primary account services specialist at the next visit. Plan for a follow-up in 4 months. In the interim, patient will call the office with any concerns or change in symptoms. This note was generated using voice recognition software. While every effort has been made to ensure accuracy and proper processing technologist, there may be occasional errors that could affect the content or meaning of the described symptoms. Coding Level of Care Code Est Pt Level 4 (52711) Complex EM visit Add On G2211 Diagnoses Hypertension, unspecified type I10 Hypertension type: unspecified Non-rheumatic aortic stenosis I35.0 Coronary artery disease I25.10 Hospital discharge follow-up Z09 Time Spent (min) 31 Comment Time spent in reviewing the chart, test results, assessment, counseling and documentation.
[2025-02-14 12:58] VITALS: BP 122/76; PULSE 86; BMI 27.0
--- OUTSIDE RECORDS SUMMARY | 2025-02-14 15:07 | XMS_ITS | Patient Health Record ---
Author Organization [facility] Address [address] [place] [address] Care Team Providers Care Range Aide Name Role Phone Sal (RETIRED) Dannie SHIELDS Primary Care Provide r Unavailable Fabrice Blanchard Unavailable [phone] Allergies Allergen (clinical drug ingredient) Drug/Non Drug [...] Problem Gastro-esophage al reflux disease without esophagitis (427275995) Gastro-esophageal reflux disease without esophagitis (K21.9) Active confirmed Problem 103996352 Encounter for screening for malignant neoplasm of colon (Z12.11) Active confirmed Problem 073341104 History of adenomatous polyp of colon (Z86.010) Active confirmed Problem Diverticular disease of colon (876109817) Diverticulosis of large intestine without perforation or abscess without bleeding (K57.30) Active confirmed Problem 396797108 Generalized abdominal pain (R10.84) Active confirmed Problem 245135742 Gastroesophageal reflux disease, esophagitis presence not specified (K21.9) Active confirmed Problem 32590101 Irritable bowel syndrome with both constipation and diarrhea (K58.2) Active confirmed Problem Chronic cough (61069728) Chronic cough (R05.3) Active confirmed Plan Of [...] Date MEDICARE OF [place] [address] [place] [address] [id number] TREY TEE Self - patient is the insured [facility] [address] [place] [address] [id number] TREY TEE Self - patient is the [...] LLL lung resection for cancer-Dr. Shaffer at [facility] 04/07/2023
--- OUTSIDE RECORDS SUMMARY | 2025-02-14 15:07 | XMS_ITS | Patient Health Record ---
Author Organization Fabrice Crain III, MD Address [address] [place] [address] Care Team Providers Care Carding Utility Tender Name Role Phone Dannie Huang MD Primary Care Provider Fabrice Butcher Unavailable [phone] Allergies Allergen (clinical drug ingredient) Drug/Non Drug [...] day Active Zoryve 0.3 % 1 application Griddle Attendant ally Once a day Active Benzonatate 100 [...] Problem Status W/U Status Risk Notes Problem 4258923 Former smoker (Z87.891) Active confirmed She seems highly motivated not to smoke and we discussed strategies for prevention of relapse in times of stress and illness. Problem 616732258 Fibromyalgia (M79.7) Active confirmed She has occasional low-grade abdominal discomfort. Problem 292482248461 Type 2 diabetes mellitus with other specified complication (E11.69) Active confirmed She will continue on current therapy. Her fasting glucose levels have been under 150. She has been compliant with her medication. Problem 513992584 Other obesity (E66.8) Active confirmed Her body mass index is 30. We have discussed her weight loss strategy. We discussed diet and nutrition. We made a plan to lose weight at a rate of one half of a pound per week. Problem 01266342 Hyperlipidemia, unspecified (E78.5) Active confirmed Her lipids are well controlled and she will continue on her current regimen. Problem 21202287 Age-related osteoporosis without current pathological fracture (M81.0) Active confirmed She is asymptomatic at this time. Problem 63033455 Essential hypertension (I10) Active confirmed Her blood pressure is controlled and no change in her regimen as necessary. Problem 477706493 Gastroesophageal reflux disease without esophagitis (K21.9) Active confirmed She has occasional reflux, well-controll ed medication and no other therapy is necessary at this time. Problem Anemia (525050778) Anemia, unspecified type (D64.9) Active confirmed She has a mild microcytic anemia with a ferritin over 100. The microcytosis is new. She'll be followed carefully. It does not require treatment at this time. Problem 495756916 Malignant neopla sm of lower lobe of left lung (C34.32) Active confirmed There is no sign of recurrent disease at this time. Incisions are healed and the pain is slowly resolving. She has been scheduled for a followup CT scan of the chest by her thoracic surgeon next month. 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 Vital Signs Heart Rate 76 /min 10/04/2024 Temperature 98.1 degrees Fahrenheit 10/04/2024 Blood pressure diastolic 78 mm Hg 10/04/2024 Height 60 in 10/04/2024 Blood pressure systolic 140 mm Hg 10/04/2024 Weight 157 lbs 10/04/2024 BMI 30.66 kg/m2 10/04/2024 Encounters Encounter Location Date Provider Diagnosis Fabrice Crain III, MD [address] [place] [address] [address] [place], [place] [address] 04/05/2024 Fabrice Crain Malignant neoplasm o f lower lobe of left lung C34.32 ; Former smoker Z87.891 ; Gastroesophageal reflux disease without esophagitis K21.9 ; Essential hypertension I10 ; Type 2 diabetes mellitus with other specified complication E11.69 ; Hyperlipidemia, unspecified E78.5 and Age-related osteoporosis without current pathological fracture M81.0 Fabrice Crain III, MD [address] [place] [address] [place] [address] 10/04/2024 Fabrice Crain Malignant neoplasm o f [...] Details Provider Name:Fabrice Crain, 04/11/2025 10:00:00 AM, [address] [place] [address] DR, [place] [address], [place], [address], Insurance Providers Payer Name Payer Address Payer Phone Subscriber Number Group Number Insured Name Patient Relationship to Insured Coverage Start Date Coverage End Date MEDICARE NGS [address] [place] [address] [id number] TREY TEE Self - patient is the insured [address] [facility] [id number] GIANNATREY DAVIES Self - patient is the insured Medical (General) History Medical History History ICD Code Essential hypertension I10 Fibromyalgia M79.7 hiatal hernia hyperlipidemia osteoarthritis diabetes mellitus essential hypertension osteoporosis GERD overweight former smoker Stage I adenocarcinoma of th e lung, Left lower lobe, April 2023, [facility] Surgical History Surgery Date(Month/Year) Lung surgery, Left lower lobe 04/07/2023 colonoscopy, Dr. Blanchard 2013 Bladder suspention 1992 choleycystectomy 2005 Tubal ligation 1985 Hospitalization History Reason Date(Month/Year) Hospitalization for ' s parkinson's, alzheimer's, and dementia - september, current year
--- OUTSIDE RECORDS SUMMARY | 2025-02-14 15:08 | XMS_ITS | Clinical Summary ---
Author Organization [facility] Address [address] [place] [address] Phone Care Team Providers Care Rough And Truing Machine Operator Name Role Phone Dannie Huang MD Primary Care Provider [phone] Allergies Active Allergy Reactions Criticality Noted Date [...] general and how their size shape and address change clerk time affect her level of suspicion for [...] N/A PROCEDURE: HISTORICAL COLONOSCOPY ESOPHAGOGASTRODUODENOSCOPY N/A PROCEDURE: [place] ESOPHAGOGASTRODUODENOSCOPY TRANSORAL DIAGNOSTIC CHOLECYSTECTOMY N/A PROCEDURE: HISTORICAL CHOLECYSTECTOMY TUBAL LIGATION PROCEDURE: HISTORICAL TUBAL LIGATION OTHER SURGICAL HISTORY 04/07/2023 Left PROCEDURE: [place] THORACOSCOPY W/THERA WEDGE RESEXN INITIAL UNILAT; COMMENT: [...] no dule DM2 (diabetes mellitus, type 2) ([facility] V24, [facility] V28) DX:DM2 (diabetes mellitus, t ype 2) ([facility]) Anemia DX:Anemia Mild intermittent asthma, [...] to complete this topic Insurance MEDICARE [facility] Care Teams Rough And Truing Machine Operator Relationship Specialty Start Date End Date Dannie Huang MD [address] [place] [address] [address] [place] PCP - General 03/22/18
--- OUTSIDE RECORDS SUMMARY | 2025-02-14 15:08 | XMS_ITS | Patient Health Record ---
Author Organization [facility] Address [address] [place] [address] Care Team Providers Care Block Chopper Hand Name Role Phone OmarKarin castro Primary Care Provider UnavailMalik Cain Unavailable [phone] Param Syed Unavailable [phone] Radha Weir Unavailable [phone] Allergies Allergen (clinical drug ingredient) Drug/Non Drug [...] Problem Acquired hammer toe of right foot (5218290461558745 ) Other hammer toe(s) (acquired), right foot (M20.41) Active confirmed Problem Acquired hammer toe of left foot (9989696436551501 ) Other hammer toe(s) (acquired), left foot (M20.42) Active confirmed Problem Polyneuropathy due to type 2 diabetes mellitus (312226535) Type 2 diabetes mellitus with diabetic polyneuropathy (E11.42) Active confirmed Vital Signs Blood pressure diastolic 65 mm Hg 01/10/2025 Height 5 ft 4 in in 01/10/2025 Blood pressure systolic 120 mm Hg 01/10/2025 Weight 157 lbs 01/10/2025 BMI 26.95 kg/m2 01/10/2025 Procedures Procedure Date Ordered Date Performed Result Body Sit e 29414-VQMSVEJ NAIL, 6 OR MORE 06/03/2024 N/A 40914-DONP SKIN LESIONS, OVER 4 06/03/2024 N/A 68531-OCFAGRV NAIL, 6 OR MORE 10/08/2024 N/A 38081-FQKB SKIN LESIONS, OVER 4 10/08/2024 N/A 13894-SJSNYJZ NAIL, 6 OR MORE 01/10/2025 N/A 56841-QGIC SKIN LESIONS, OVER 4 01/10/2025 N/A Encounters Encounter Location Date Provider Diagnosis [address] [address] 02/22/2024 Param Syed Tinea unguium B35.1 ; Type 2 diabetes mellitus with diabetic polyneuropathy E11.42 ; Pain in right toe(s) M79.674 ; Pain in left toe(s) M79.675 ; Hallux valgus (acquired), left foot M20.12 ; Hallux valgus (acquired), right foot M20.11 ; Ingrowing nail L60.0 ; Primary osteoarthritis, left ankle and foot M19.072 and Metatarsalgia, right foot M77.[address] [address] 06/03/2024 Radha Weir Type 2 diabetes mellitus with diabetic polyneuropathy E11.42 and Tinea unguium B35.[address] [address] 10/08/2024 Malik Clements Type 2 diabetes mellitus with diabetic polyneuropathy E11.42 ; Tinea unguium B35.1 ; Other hammer toe(s) (acquired), right foot M20.41 and Other hammer toe(s) (acquired), left foot M20.42 [facility] [address] [address] 01/10/2025 Malik Clements Type 2 diabetes mellitus with diabetic polyneuropathy E11.42 and Tinea unguium B35.[address] [address] 09/24/2024 Radha Weir Assessments Encounter Date Diagnosis [...] X ray : Ankle, left 3V 11/15/2018 33386-DTAMDVY NAIL, 6 OR MORE 05/17/2018 03134-OYCDTLZ NAIL, 6 OR MORE 06/03/2024 00866-CISQPXC NAIL, 6 OR MORE 10/08/2024 08271-VZPWCMF NAIL, 6 OR MORE 01/10/2025 59166-SJBQUSI NAIL, 6 OR MORE 02/23/2011 63214-CXKZJSZ NAIL, 6 OR MORE 05/11/2011 99952-NILBNNF NAIL, 6 OR MORE 07/20/2011 52176-HWDVAYZ NAIL, 6 OR MORE 10/03/2011 85208-KRKEPLL NAIL, 6 OR MORE 12/12/2011 07645-TMRKNKL NAIL, 6 OR MORE 02/22/2012 76254-DQSYOEO NAIL, 6 OR MORE 05/09/2012 35694-JIDCBOM NAIL, 6 OR MORE 08/08/2012 37173-VCENETU NAIL, 6 OR MORE 11/08/2012 98111-AEVIFKH NAIL, 6 OR MORE 01/30/2013 60686-GLPJTCF NAIL, 6 OR MORE 04/24/2013 28606-LEQMQLO NAIL, 6 OR MORE 07/03/2013 48000-OMIBWHP NAIL, 6 OR MORE 09/16/2013 78042-SYMISXQ NAIL, 6 OR MORE 12/23/2013 97616-UAFQUOD NAIL, 6 OR MORE 03/27/2014 56579-XZDNPJB NAIL, 6 OR MORE 06/09/2014 67885-PXGHOXA NAIL, 6 OR MORE 08/18/2014 79853-BKYQTNO NAIL, 6 OR MORE 10/29/2014 45030-OXYCGPY NAIL, 6 OR MORE 01/12/2015 32845-UEHLRDS NAIL, 6 OR MORE 04/13/2015 15370-JFYUJPK NAIL, 6 OR MORE 06/29/2015 34371-PPAUEZQ NAIL, 6 OR MORE 09/14/2015 43542-WIKISGU NAIL, 6 OR MORE 12/17/2015 51627-RJIAMVX NAIL, 6 OR MORE 03/17/2016 08680-ZHDGGXD NAIL, 6 OR MORE 06/16/2016 57816-MSMOLWQ NAIL, 6 OR MORE 08/18/2016 50481-HNXQMVP NAIL, 6 OR MORE 11/16/2016 02017-QNMYRLS NAIL, 6 OR MORE 02/16/2017 31591-TDHBUDT NAIL, 6 OR MORE 05/18/2017 11998-QLQZXRM NAIL, 6 OR MORE 08/17/2017 69207-ZWUSUII NAIL, 6 OR MORE 11/16/2017 83801-TZOBYSL NAIL, 6 OR MORE 02/15/2018 99613-Pgvewplp Plate 05/18/2017 23678-Dczwzvfw Plate 10/29/2014 48540-Wiwfwjzj Plate 08/18/2014 90660-Jftdjjsu Plate 06/09/2014 25209-Keqegayy Plate 03/27/2014 99157-YGXC SKIN LESIONS, OVER 4 01/11/20 25 42980-ELZB SKIN LESIONS, OVER 4 10/09/19 25 81502-MAZY SKIN LESIONS, OVER 4 06/03/20 24 32906-AYCJ SKIN LESIONS, OVER 4 08/17/19 19 78382-XXJF SKIN LESIONS, OVER 4 11/16/19 19 04249-BGSA SKIN LESIONS, OVER 4 03/14/20 19 01544-OSXH SKIN LESIONS, OVER 4 06/17/19 20 72913-PQPM SKIN LESIONS, OVER 4 10/17/19 20 91797-ZJUD SKIN LESIONS, OVER 4 01/22/20 20 00907-FLJJ SKIN LESIONS, OVER 4 04/22/20 20 82130-HNBY SKIN LESIONS, OVER 4 07/29/19 21 04421-ZEGH SKIN LESIONS, OVER 4 10/29/19 21 75334-CLBV SKIN LESIONS, OVER 4 01/28/20 21 57094-ZTLU SKIN LESIONS, OVER 4 04/28/20 21 80831-AQNU SKIN LESIONS, OVER 4 08/05/19 22 63237-LCSO SKIN LESIONS, OVER 4 06/09/19 15 00948-VLPW SKIN LESIONS, OVER 4 03/27/20 14 02353-KDIT SKIN LESIONS, OVER 4 12/24/19 14 35112-ZRRL SKIN LESIONS, OVER 4 09/17/19 14 18716-NMGY SKIN LESIONS, OVER 4 07/03/19 14 12201-UESZ SKIN LESIONS, OVER 4 04/24/20 13 42035-GWFG SKIN LESIONS, OVER 4 01/31/20 13 36536-IUPC SKIN LESIONS, OVER 4 11/09/19 13 64448-UVJV SKIN LESIONS, OVER 4 08/09/19 13 58448-JNWR SKIN LESIONS, OVER 4 05/09/20 12 85124-WSVL SKIN LESIONS, OVER 4 02/22/20 12 40473-UHRD SKIN LESIONS, OVER 4 12/12/19 12 97699-JUWT SKIN LESIONS, OVER 4 10/03/19 12 70415-UCNX SKIN LESIONS, OVER 4 07/20/19 12 73293-VYJM SKIN LESIONS, OVER 4 05/11/20 11 67675-GCTU SKIN LESIONS, OVER 4 02/24/20 11 90204-NSVZ SKIN LESIONS, OVER 4 08/19/19 15 86298-MPNR SKIN LESIONS, OVER 4 10/30/19 15 09355-WDSU SKIN LESIONS, OVER 4 04/13/20 15 18741-FXFT SKIN LESIONS, OVER 4 01/13/20 15 30342-CXKA SKIN LESIONS, OVER 4 03/17/20 16 30352-RLJK SKIN LESIONS, OVER 4 12/17/19 16 77753-NTBQ SKIN LESIONS, OVER 4 09/14/19 16 37750-TDFO SKIN LESIONS, OVER 4 06/29/19 16 93000-IFWE SKIN LESIONS, OVER 4 05/18/20 17 83154-OFAD SKIN LESIONS, OVER 4 02/17/20 17 15331-LHPK SKIN LESIONS, OVER 4 08/19/19 17 13297-WYOV SKIN LESIONS, OVER 4 11/17/19 17 71809-JLDK SKIN LESIONS, OVER 4 06/16/19 17 39165-NLNW SKIN LESIONS, OVER 4 05/17/20 18 07043-BEMS SKIN LESIONS, OVER 4 02/16/20 18 79564-KITK SKIN LESIONS, OVER 4 11/17/19 18 58201-LZRC SKIN LESIONS, OVER 4 08/18/19 18 48966- Removal of Foreign Body, Subcut 0 06/17/2019 Next Appt Details Provider Name:Malik Clements , 05/09/2025 11:45:00 AM, [address] [facility], [place], [address], Insurance Providers Payer Name Payer Address Payer Phone Subscriber Number Group Number Insured Name Patient Relationship to Insured Coverage Start Date Coverage End Date Medicare [employer] [address] [place] [address] [id number] Julienne Chand Self - patient is the insured [facility] [address] [facility] [place] [address] [id number] Julienne Chand Self - patient is [...] [facility] - Fell / concousin 01/07/17 [facility] for 2 day s roxie , for chest pain, high blood pressure and a head bump 03/2013
== END 2025-02-14 13:24 | disposition home or self-care (01) ==
LOC: HO.HCS 12:47
PROVIDERS: PCP Internal Medicine
DX: I10 Essential (primary) hypertension (principal); I35.0 Nonrheumatic aortic (valve) stenosis; I25.10 Atherosclerotic heart disease of native coronary artery without angina pectoris; Z09 Encounter for follow-up examination after completed treatment for conditions other than malignant neoplasm
CPT/HCPCS: 99214; G2211

== ENCOUNTER → 2025-02-14 12:46 | Outpatient (BNVA) | payer MEDICARE, OTHER, SELFPAY | PROVIDERS: PCP Internal Medicine | DX: Z09 Encounter for follow-up examination after completed treatment for conditions other than malignant neoplasm (principal); I10 Essential (primary) hypertension; I25.10 Atherosclerotic heart disease of native coronary artery without angina pectoris; I35.0 Nonrheumatic aortic (valve) stenosis | CPT/HCPCS: 99212 ==

== ENCOUNTER 2025-03-21 10:56 | Outpatient (REF) | payer MEDICARE, OTHER, SELFPAY ==
--- NOTE | ~2025-03-21 | MM_ITS ---
EXAMINATION: MM SCREENING DIGITAL BREAST TOMOSYNTHESIS, BILATERAL CLINICAL INFORMATION: Screening. Asymptomatic. COMPARISON: Mammography: Comparison is made with available priors TECHNIQUE: Digital breast mammography with tomosynthesis is performed in both the craniocaudal and mediolateral oblique views along with computer-aided detection (CAD). FINDINGS: There are scattered areas of fibroglandular density. There are no significant masses, abnormal calcifications, or other abnormalities. MM/MM tomosynthesis screening BI IMPRESSION: No mammographic evidence of malignancy. ASSESSMENT: BI-RADS Category 1: Negative RECOMMENDATION: Routine annual mammography screening. 1 year F/U This examination should not preclude the clinical evaluation of a suspicious palpable abnormality. This patient's information was entered into a reminder system with a target due date for their next mammogram. Electronically signed by: Mya Brown DO 03/24/2025 05:28 PM EDT
--- OUTSIDE RECORDS SUMMARY | 2025-03-21 13:35 | XMS_ITS | Clinical Summary ---
Author Organization [facility] Address [address] [place] [address] Phone Care Team Providers Care Jackscrew Man Name Role Phone Dannie Huang MD Primary Care Provider [phone] Allergies Active Allergy Reactions Criticality Noted Date [...] N/A PROCEDURE: HISTORICAL COLONOSCOPY ESOPHAGOGASTRODUODENOSCOPY N/A PROCEDURE: [place] ESOPHAGOGASTRODUODENOSCOPY TRANSORAL DIAGNOSTIC CHOLECYSTECTOMY N/A PROCEDURE: HISTORICAL CHOLECYSTECTOMY TUBAL LIGATION PROCEDURE: HISTORICAL TUBAL LIGATION OTHER SURGICAL HISTORY 04/07/2023 Left PROCEDURE: [place] THORACOSCOPY W/THERA WEDGE RESEXN INITIAL UNILAT; COMMENT: [...] no dule DM2 (diabetes mellitus, type 2) ([facility] V24, [facility] V28) DX:DM2 (diabetes mellitus, t ype 2) ([facility]) Anemia DX:Anemia Mild intermittent asthma, uncomplicated DX:Mild [...] complete this topic Insurance MEDICARE [facility] Care Teams Jackscrew Man Relationship Specialty Start Date End Date Dannie Huang MD [address] [place] [address] [address] [place] PCP - General 03/22/18
== END 2025-03-21 10:57 | disposition home or self-care (01) ==
LOC: HO.MAMMO 10:56
PROVIDERS: PCP Student in an Organized Health Care Education/Training Program; Visit Provider Internal Medicine
DX: Z12.31 Encounter for screening mammogram for malignant neoplasm of breast (principal)
CPT/HCPCS: 77063; 77067

== ENCOUNTER → 2025-03-21 11:30 | Outpatient (BNV) | payer MEDICARE, OTHER, SELFPAY | PROVIDERS: PCP Student in an Organized Health Care Education/Training Program; Visit Provider Internal Medicine | DX: Z12.31 Encounter for screening mammogram for malignant neoplasm of breast (principal) | CPT/HCPCS: 77063; 77067 ==

== ENCOUNTER 2025-04-04 09:44 | Outpatient (AMB) | payer MEDICARE, OTHER, SELFPAY ==
--- OUTSIDE RECORDS SUMMARY | 2023-10-11 05:53 | XMS_ITS ---
Author Organization Fabrice Crain III, MD Address [address] [place] [address] [place] [address] Care Team Providers Care External Relations Director Name Role Phone Dannie Huang MD Primary Care Provider Dr. Fabrice Butcher III Unavailable REASON FOR VISIT CT Chest W/ IV CONTRAST ORDER Social History Sex Assigned At : Social History Observation Description Sex Assigned At Female Encounters Encounter Location Date Provider Diagnosis Fabrice Crain III, MD [address] [place] [address] [place] [address] 10/11/2023 Fabrice Crain Malignant neoplasm of lower lobe of left lung C34.32 Assessments Encounter Date Diagnosis (ICD Code) Assessment Notes Treatment Notes Treatment Clinical Notes 10/11/2023 Malignant neoplasm of lower lobe of left lung (ICD-10 - C34.32) Plan Of Treatment Pending Test Test Name Order Date CT chest w con 10/11/2023 Next Appt Details Provider Name:Fabrice Crain , 04/11/2025 10:00:00 AM, [address] [place] [address] [place], [address], Progress Notes * KHOA CANDELARIOADOB:[birth year] (78 yo F)Acc No.[id number]:10/11/2023 Patient: TREY KOWALSKI :1945 A ge:78 Y S ex:Female Address:[address] [place], [place] [address], [address] Subjective: * Chief Complaints: * C T Chest W/ IV CONTRAST ORDER * Medical History: * Surgical History: * Hospitalization/Major Diagno stic Procedure: * Medications: Objective: Assessment: * Assessment: 1. M alignant neoplasm of lower lobe of left lung - C34.32 Plan: * Treatment: * Procedure Codes: * true * Date: Generated for Bryan lee/Emily/Evysmitting on: 10:55 AM EDT
--- OUTSIDE RECORDS SUMMARY | 2023-10-16 09:06 | XMS_ITS ---
Author Organization Fabrice Crain III, MD Address [address] [place] [address] [place] [address] Care Team Providers Care Hardware Assembler Name Role Phone Dannie Huang MD Primary Care Provider Dr. Fabrice Butcher III Unavailable [phone] REASON FOR VISIT Regarding CT Chest Social History Sex Assigned At : Social History Observation Description Sex Assigned At Female Encounters Encounter Location Date Provider Diagnosis Fabrice Crain III, MD [address] [place] [address] [place] [address] 10/16/2023 Fabrice Crain Plan Of Treatment Next Appt Details Provider Name:Fabrice Crain , 04/11/2025 10:00:00 AM, [address] [place] [address] [place], [address], Progress Notes * KHOA CANDELARIOADOB:[birth year] (78 yo F)Acc No.[id number]:10/16/2023 Patient: Carlos TREY DE LA PAZ :1945 A ge:78 Y S ex:Female Address:[address] [facility] [place], [address] * true * Date: Generated for Printi ng/Faxing/eTransmitting on: 10:54 AM EDT
--- OUTSIDE RECORDS SUMMARY | 2023-10-27 06:30 | XMS_ITS ---
Author Organization [facility] Address [address] [place] [address] Care Team Providers Care Medical Research Scientist Name Role Phone Sal (RETIRED) Dannie SHIELDS Primary Care Provide r Unavailable Fabrice Blanchard Unavailable [phone] REASON FOR VISIT screening,hx polyps,gerd Problems Problem Type SNOMED Code ICD Code Onset Dates Problem Status W/U Status Risk Notes Problem Diverticular disease of colon (241455518) Diverticulosis of large intestine without perforation or abscess without bleeding (K57.30) Active confirmed Problem Gastro-esophagea l reflux disease without esophagitis (414465097) Gastro-esophageal reflux disease without esophagitis (K21.9) Active confirmed Encounters Encounter Location Date Provider Diagnosis [facility] [place] [address] [place], [place] [phone] 10/27/2023 Fabrice Blanchard Encounter for scre ening [...] * TREY BROWN IDOB:1944 (80 yo F)Acc No.[id number]:10/27/2023 EGD and COL/MAC Patient: TREY KOWALSKI I Provider: Tory Blanchard MD :1945 A ge:78 Y S ex:Female Date:10/27/2023 Address:[address] [place] [address] , [id number] Pcp:Dannie Huang (RETIRED )MD Subjective: * Chief [...] FLW-UP 10 YRS DOCD, Modifiers: 1P , 15654 UPPR GI ENDOSCOPY, DIAGNOSIS * * The named appointment provid er may or may not be the originator of this progress note, and it is not deemed complete until electronically signed by the appointment provider. Sign off status: Pending * Provider: Tory Blanchard MD Date: 0 10/27/2023 Generated for Bryan lee/Emily/Evysmitting on: 10:53 AM EDT
--- OUTSIDE RECORDS SUMMARY | 2023-11-16 06:00 | XMS_ITS ---
Author Organization [facility] Address [address] [place] [address] Care Team Providers Care Exploration Geologist Name Role Phone OmarJessica castroah Primary Care Provider Malik Albert Unavailable [phone] Param Arora Unavailable [phone] REASON FOR VISIT Painful nail(s) aggrevated by shoes and causing difficulty standing/walking. Medications Medication SIG (Take, Route, Frequency, Duration) Notes Start Date End Date Status Extra Depth Diabetic Shoes with 3 Pair Custom heat-molded multi-density innersoles for 1 year Dx: Active Encounters Encounter Location Date Provider Diagnosis [facility] [address] [place] [address] 11/16/2023 Param Arora Tinea unguium B35.1 ; [...] Provider Name:Malik Clements , 05/09/2025 12:15:00 PM, [address] [place] [address], [phone], Procedure Notes * Category Sub-Category Detail Notes [...] as necessary. Patient chooses, no pharmaceutical tx (90828) Keratoma Treatment Parring or Cutting o f Benign Hyperkeratotic Lesion(s) 40733 ( >4 Lesions) - The Benign hyperkeratotic lesions, as described above were pared, and/or cut utilizing a sterile #15 blade, tissue nippers, and/or dremel Progress Notes * Yesica CANDELARIO:[birth year] (80 yo F)Acc No.[id number]:11/16/2023 Progress Note Patient: Julienne KOWALSKI Provider: Sid Syed DPM :1945 A ge:78 Y S ex:Female Date:11/16/2023 Address:[address] [place] [address] [place], [id number] Pcp:Karin Nelson Subjective: * Chief Complaints: * 1 . Painful nail(s) aggrevated by shoes and causing difficulty standing/walking.. * HPI: P ainful Nails: Pt States Last PCP Visit: D ate: 0 07/07/2023 Misc: 1 06/07/[address] Cheng at [facility] for lung ca nodule with no [...] enies. C ardiovascular: Pacemaker d enies. M SEARCH ENGINE MARKETING STRATEGIST d enies. W PW d enies. C [...] as necessary. Patient chooses, no pharmaceutical tx (32507). K eratoma Treatment: Parring or Cutting of Benign Hyperkeratotic Lesion(s) 1 1057 ( >4 Lesions) - The Benign hyperkeratotic lesions, as described above were pared, and/or cut utilizing a sterile #15 blade, tissue nippers, and/or dremel. * Procedure Codes: 1 1721 DEBRIDE NAIL, 6 OR MORE, Modifiers: XS , 69414 TRIM SKIN LESIONS, OVER 4, Modifiers: XS * Follow Up: 3 Months * Images: * The named appointment provid er may or may not be the originator of this progress note, and it is not deemed complete until electronically signed by the appointment provider. Sign off status: Pending * Provider: Sid Syed DPM Date: 0 11/16/2023 Generated for Bryan lee/Emily/Sher on: 1 10:55 AM EDT History and Physical Notes * HPI (History of Present Illness) Category Sub-Category Detail Notes Category Not es Ankle Pain Duration: several months Nature: swelling, tenderness , aching, throbbing Treatments: ice Location: Outside aspect of th e Left ankle Aggravated by: bedtime Painful Nails Misc: 04/07/[address] Cheng at [facility] for lung ca nodule with no [...]
--- OUTSIDE RECORDS SUMMARY | 2023-12-01 06:30 | XMS_ITS ---
Author Organization Fabrice Crain III, MD Address [address] [address] Care Team Providers Care Gas Treater Name Role Phone Dannie Huang MD Primary Care Provider Dr. Fabrice Butcher III Unavailable Allergies Allergen (clinical drug ingredient) [...] Benzonatate 100 MG TAKE 1 CAPSULE BY [facility] EVERY 8 HOURS NEEDED FOR COUGH Oral Active Albuterol Sulfate HFA 108 (90 Base) MCG/ACT 1 puff as needed Inhalation every 4 hrs Active Zoryve 0.3 % 1 application Chip Machine Operator ally Once a day Active LORazepam [...] Problem Status W/U Status Risk Notes Problem [id number] Other obesity (E66.8) Active confirmed Her body [...] Date Provider Diagnosis Fabrice Crain III, MD [address] [place] [address] [place] [address] 12/01/2023 Fabrice Crain Malignant neoplasm o f [...] Benzonatate 100 MG TAKE 1 CAPSULE BY [facility] EVERY 8 HOURS NEEDED FOR COUGH Oral Albuterol Sulfate HFA 108 (9 0 Base) MCG/ACT 1 puff as needed Inhalation every 4 hrs Zoryve 0.3 % 1 application Chip Machine Operator ally Once a day LORazepam 1 [...] Provider Name:Fabrice Crain , 04/11/2025 10:00:00 AM, [address] [place] [address] STEFANY BROWN, [place], [address], Progress Notes * JUVENTINO CANDELARIO:[birth year] (78 yo F)Acc No.[id number]:12/01/2023 Progress Notes Patient: TREY KOWALSKI Provider: Tory Crain MD :1945 A ge:78 Y S ex:Female Date:12/01/2023 Address:[address] [place], [place] [address], [id number] Pcp:Dannie Huang MD Subjective: * Chief Complaints: [...] mg/dL) 52 (Ref Range: mg/dL) * Lab:Comprehensive [place]. Eje l Fast * Order Date 11/13/2023 [...] 12/01/2023 Generated for Bryan lee/Emily/eTransmitting on: 1 10:53 AM EDT History and Physical Notes * HPI (History of Present Illness) Category Sub-Category Detail Notes COVID-19 Screening Questions Have you had any new onset fever, chills, cough, congestion, sore throat, shortness of breath, muscle aches?: No Have you been exposed to the virus withi n the last 10 days?: No Have you travelled internationally in [facility] last 10 days?: No Have you been [...]
--- OUTSIDE RECORDS SUMMARY | 2023-12-18 06:00 | XMS_ITS ---
Author Organization [facility] Address [address] [place] [address] Care Team Providers Care Acid Remover Name Role Phone Karin Nelson Primary Care Provider Malik Albert Unavailable [phone] Param Arora Unavailable [phone] Encounters Encounter Location Date Provider Diagnosis [address] [address] 12/18/2023 Param Arora Plan Of Treatment Next Appt Details Provider Name:Malik Clements , 05/09/2025 12:15:00 PM, [address] [place], [address], Progress Notes * Ahsan CANDELARIOB:[birth year] (80 yo F)Acc No.[id number]:12/18/2023 Progress Note Patient: Julienne KOWALSKI Provider: Sid Syed DPM :1945 A ge:78 Y S ex:Female Date:12/18/2023 Address:[address] [place], [place] [id number] Pcp:Karin Nelson Subjective: * Chief Complaints: * [...] DPM Date: 0 12/18/2023 Generated for Bryan lee/Emily/Reneaitting on: 1 10:54 AM EDT
--- OUTSIDE RECORDS SUMMARY | 2024-01-04 08:15 | XMS_ITS ---
Author Organization [facility] Address [address] [place] [address] Care Team Providers Care Engraving Supervisor Name Role Phone Karin [place] Primary Care Provider Malik Albert Unavailable [phone] Param Arora Unavailable [phone] REASON FOR VISIT sooner appt Encounters Encounter Location Date Provider Diagnosis [address] [address] 01/04/2024 Param Arora Plan Of Treatment Next Appt Details Provider Name:Malik Clements , 05/09/2025 12:15:00 PM, [address] [place], [address], Progress Notes * Jesse CANDELARIOHaiB:[birth year] (80 yo F)Acc No.[id number]:01/04/2024 Progress Note Patient: Julienne KOWALSKI Provider: Sid Syed DPM :1945 A ge:78 Y S ex:Female Date:01/04/2024 Address:[address] [place] [address] Pcp:Karin [place] Subjective: * Chief Complaints: * [...] 01/04/2024 Generated for Bryan lee/Emily/Sher on: 1 10:53 AM EDT
--- OUTSIDE RECORDS SUMMARY | 2024-04-05 07:00 | XMS_ITS ---
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 Vital Signs Temperature 97.4 degrees Fahrenheit 04/05/20 24 Blood pressure systolic 138 mm Hg 04/05/20 24 Blood pressure diastolic 77 mm Hg 024 Heart Rate 79 /min 04/05/2024 Height 60 in 04/05/2024 Weight 161 lbs 04/05/2024 BMI 31.44 kg/m2 04/05/2024 Encounters Encounter Location Date Provider Diagnosis Fabrice Crain III, MD [address] [place] [address] [place] [address] 04/05/2024 Fabrice Crain Malignant neoplasm o f [...] a day Zoryve 0.3 % 1 application New Vehicle Sales Consultant ally Once a day Benzonatate 100 MG TAKE 1 CAPSULE BY [facility] EVERY 8 HOURS NEEDED [...] Provider Name:Fabrice Crain , 04/11/2025 10:00:00 AM, [address] [place] [address], [address], Progress Notes * GEMMA CANDELARIOB:[birth year] (79 yo F)Acc No.[id number]:04/05/2024 Progress Notes Patient: TREY KOWALSKI Provider: Tory Crain MD :1945 A ge:79 Y S ex:Female Date:04/05/2024 Address:[address] [place] [address] [id number] Pcp:Dannie Huang MD Subjective: * Chief Complaints: [...] Date: 06/05/2023 Generated for Bryan lee/Emily/eTransmitting on: 10:54 AM EDT History and Physical Notes * HPI (History of Present Illness) Category Sub-Category Detail Notes COVID-19 Screening Questions Have you had any new onset fever, chills, cough, congestion, sore throat, shortness of breath, muscle aches?: No Have you been exposed to the virus withi n the last 10 days?: No Have you travelled internationally in [facility] last 10 days?: No Have you [...]
--- OUTSIDE RECORDS SUMMARY | 2024-09-26 11:45 | XMS_ITS ---
Author Organization [facility] Address [address] [place] [address] Care Team Providers Care Critical Systems Technician Name Role Phone OmarJessica castroah Primary Care Provider Malik Albert Unavailable [phone] Radha Weir Unavailable [phone] Allergies Allergen (clinical drug ingredient) Drug/Non Drug [...] Active Encounters Encounter Location Date Provider Diagnosis [facility] [address] [address] 09/26/2024 Radha Weir Plan Of Treatment Next Appt Details Provider Name:Malik Clements , 05/09/2025 12:15:00 PM, [address] [place] [address], [phone], Progress Notes * Ahsan CANDELARIOB:[birth year] (80 yo F)Acc No.[id number]:09/26/2024 Progress Note Patient: Julienne KOWALSKI Provider: Mikel Weir DPM :1945 A ge:79 Y S ex:Female Date:09/26/2024 Address:[address] [place], [place] [id number] Pcp:Karin Nelson Subjective: * Chief Complaints: * [...] 0 09/26/2024 Generated for Bryan lee/Emily/Reneaitting on: 1 10:54 AM EDT
--- OUTSIDE RECORDS SUMMARY | 2024-10-04 07:00 | XMS_ITS ---
Author Organization Fabrice Crain III, MD Address [address] [facility] [place] [address] Care Team Providers Care Manager Shell Name Role Phone Dannie Huang MD Primary [...] Benzonatate 100 MG TAKE 1 CAPSULE BY [facility] EVERY 8 HOURS NEEDED FOR COUGH [...] day Active Zoryve 0.3 % 1 application Edger Runner ally Once a day Active Social History [...] Problem Status W/U Status Risk Notes Problem [id number] Malignant neoplasm of lower lobe of left [...] Date Provider Diagnosis Fabrice Crain III, MD [address] [place] [address] [place] [address] 10/04/2024 Fabrice Crain Malignant neoplasm o f [...] Benzonatate 100 MG TAKE 1 CAPSULE BY [facility] EVERY 8 HOURS NEEDED FOR COUGH [...] a day Zoryve 0.3 % 1 application Edger Runner ally Once a day Next Appt Details Follow Up: 6 Months, Reason: ov Provider Name:Fabrice Sheets Paras , 04/11/2025 10:00:00 AM, [address] [place] [address] DR STEFANY [place], [place], [address], Progress Notes * JUVENTINO CANDELARIO:[birth year] (79 yo F)Acc No.[id number]:10/04/2024 Progress Notes Patient: TREY KOWALSKI Provider: Tory Crain MD :1945 A ge:79 Y S ex:Female Date:10/04/2024 Address:[address] [place], [place] [phone] Pcp:Dannie Huang MD Subjective: * Chief Complaints: [...] June and moved innto an apartment in [place] near her workplace. On October 08, 2024. Her thoracic surgeon, Dr. Cheng, has ordered a CT scan of her chest for surveillance purposes. She has a new primary care physician, Dr. Fuentes, at [facility], who has put her on sertraline [...] 10/04/2024 Generated for Bryan lee/Emily/Reneaitting on: 1 10:55 AM EDT History and [...]
[2025-04-04 08:21] VITALS: BP 122/80; PULSE 71; TEMP 36.6; O2SAT 99; BMI 28.0
--- NOTE | 2025-04-04 08:21 | A.OFFPC_ITS ---
Vital Signs 04/04/25 08:21 Height 5 ft 4 in Weight 163 lb BMI 28.0 BP 122/80 Blood Pressure Location Lt brachial Position Sitting Pulse 71 Pulse Source Pulse Oximeter Temp 97.9 F Temp Source Temporal Artery Scan Pulse Oximetry (%) 99 Oxygen Delivery Method Room Air Intake Visit Reasons: F/U Hospital Unit Clerk Required: No Accompanied by: Self / Same As Patient Allergies niacin (Niacin) Allergy (Mild, Verified 04/04/25 08:21) RASH lactose (Lactose) Adverse Reaction (Mild, Verified 04/04/25 08:21) DIARRHEA atorvastatin (Lipitor) Adverse Reaction (Unknown, Verified 04/04/25 08:21) Unknown celecoxib (Celebrex) Adverse Reaction (Unknown, Verified 04/04/25 08:21) Unknown simvastatin Adverse Reaction (Unknown, Verified 04/04/25 08:21) Unknown Medication List - Last Reconciled 04/04/25 by Alex Mensah MD acetaminophen (Tylenol) 325 mg PO QID PRN albuterol sulfate 90 mcg/actuation 2 puffs PO Q4-6H PRN aspirin 81 mg PO DAILY blood sugar diagnostic As directed blood-glucose meter As directed carvedilol 6.25 mg See Protocol PO BIDWM 30 days famotidine 20 mg PO BID 30 days fluticasone propionate 110 mcg/actuation 2 puffs inhalation BID FreeStyle Lite Strips (blood sugar diagnostic) once daily NS lancets As directed lancets (FreeStyle Lancets) As directed lisinopril 2.5 mg PO DAILY 30 days lorazepam 0.5 mg PO BEDTIME 4 weeks pravastatin 80 mg PO DAILY 90 days Tobacco use date assessed: 04/04/25 Fall risk assessment: No Falls in past year Last assessed Fall Risk: 04/04/25 Dental Screening Dental Screen Date: 04/04/25 Did you have a dental visit in the last 12 months?: Yes Did you have a dental problem in the last 6 months where you did not have access to dental care?: No HPI HPI Comments History of Present Illness Details The patient is a 80-year-old female presenting for management of a chronic cough. She has had a persistent cough since 2016, which is particularly severe at night and disrupts her sleep. The patient reports no improvement with prednisone, fluticasone, or albuterol. She states that Robitussin, benzonatate, and codeine have previously helped, but codeine causes dizziness. A recharger had previously discontinued Robitussin and benzonatate due to c oncerns about them being too drying. The patient has a history of type 2 diabetes but has not been taking any medication for it for years, since 2016. Her last HbA1c was 6.7, and recent morning fasting glucose levels were 123-131 mg/dL. She has been taking honey for her cough, which may be contributing to elevated blood sugar levels. For hypertension, she has been taking carvedilol for about 20 years and is also on lisinopril; her blood pressure is now well-controlled after a previous episode of uncontrolled pressures led to a hospitalization. She takes pravastatin 80 mg for hyperlipidemia. The patient has irritable bowel syndrome (IBS) for which she takes famotidine twice daily. She experiences diarrhea most of the time, which can be severe, and uses Imodium for relief. Past medical history is significant for a transient ischemic attack (TIA) in February, for which a brain scan was reportedly normal, and lung cancer, for which she underwent surgery two years ago and is now cancer-free. Her mammogram this year was normal. She also reports headaches and is scheduled to see a neurologist. For sleep, she has been taking lorazepam 0.5 mg nightly. Medical History: - Chronic cough since 2015 - Hypertension, treated with carvedilol and lisinopril; history of hospitalization for uncontrolled blood pressure - Type 2 diabetes mellitus, untreated si 2016 - Irritable bowel syndrome with diarrhea - Hyperlipidemia - Insomnia - Headaches - History of transient ischemic attack ( TIA) in February - History of lung cancer Surgical History: - Lung surgery two years prior, now [facility] Medications: - Albuterol inhaler as needed for shortn ess of breath - Aspirin for heart disease - Carvedilol 6.25 mg for blood pressure - Famotidine twice a day for IBS - Fluticasone inhaler for cough - Lisinopril 2.5 mg for high blood press ure - Lorazepam 0.5 mg every night - Pravastatin 80 mg for cholesterol Family History: No family history was discussed during the visit. Diagnostic Results: - Lab: HbA1c was 6.7. - Lab: Morning blood sugar was 131 and 1 23 on consecutive days. - Imaging: Brain scan from February was fine and showed nothing acute. - Imaging: Mammogram performed this year was good. Social History: - Diet: Reports taking honey for her cou gh, which may elevate her blood sugar. - Home care: Uses steam inhalation, warm towels, an air purifier, and a humidifier to manage congestion. [facility] Medical History (Updated 04/04/25 @ 10:29 by Alex Mensah MD) Headache Insomnia Peptic ulcer Lung cancer Psoriasis Type 2 diabetes mellitus GERD (gastroesophageal reflux disease) Osteopenia Pulmonary nodule Depression Fibromyalgia IBS (irritable bowel syndrome) High cholesterol HTN (hypertension) Chronic cough Allergic rhinitis Cough due to bronchospasm Surgical History Hx of bladder repair surgery S/P lobectomy of lung History of tubal ligation History of esophagogastroduodenoscopy (EGD) History of laparoscopic cholecystectomy History of colonoscopy (~10/27/23) Family History (Updated 04/04/25 @ 09:57 by Jennifer Mohr MA) Father Myocardial infarction Mother Diabetic coma Sister No problems noted. 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 1. Little interest or pleasure in doing things: not at all 2. Feeling down, depressed, or hopeless: nearly every day (grieving her in May ) 3. Trouble falling or staying asleep, or sleeping too much: nearly every day 4. Feeling tired or having little energy: nearly every day (low energy) 5. Poor appetite or overeating: not at all 6. Feeling bad about yourself - or that you are a failure or have let yourself or your family down: not at all 7. Trouble concentrating on things, such as reading the newspaper or watching television: not at all 8. Moving or speaking so slowly that other people could have noticed. Or the opposite - being so fidgety or restless that you have been moving around a lot more than usual: not at all 9. Thoughts that you would be better off or of hurting yourself in some way: not at all Total score: 9 Source: Developed by Drs. Fabrice Barraza, Juliette Aburto, Ricky Mclain and colleagues, with an educational juan daniel from [employer]. Thrive Questionnaire Date Thrive assessed: 04/04/25 I am a: Patient Within the past 12 months, did the food you bought not last and you didn't have the money to get more?: Never true Within the past 12 months, did you worry whether your food would run out before you got money to buy more?: Never true Do you have trouble paying for medicines?: No Do you have trouble getting transportation to medical appointments?: No Do you have trouble paying your heating and electricity bill?: No Do you have trouble taking care of your child, family member or friend?: No Do you have trouble with day-to-day activities such as bathing, preparing meals, shopping, managing finances, etc.?: No Are you currently unemployed and looking for a job?: No Are you interested in more education?: No THRIVE Score: 0 AUDIT C Alcohol Use Questionnaire (AUDIT-C) 1. How often do you have a drink containing alcohol?: Never 3. How often do you have six or more drinks on one occasion?: Never Total Score: 0 AREN-7 AMB Questionnaire AREN-7 Date AREN - 7 assessed: 04/04/25 Feeling nervous, anxious, or on edge: 3 = Nearly every day Not being able to stop or control worryin = Not at all Worrying too much about different things: 0 = Not at all Trouble relaxin = Not at all Being so restless that it is hard to sit still: 0 = Not at all Becoming easily annoyed or irritable: 0 = Not at all Feeling afraid as if something awful might happen: 0 = Not at all Total AREN-7 score (0-4 normal; 5-9 mild; 10-14 moderate; 15-21 severe): 3 Source: Developed by Drs. Fabrice Barraza, Juliette Aburto, Ricky Mclain and colleagues, with an educational juan daniel from [employer]. Review of Systems Narrative - Respiratory: Reports a chronic cough that is worse at night. - Reports shortness of breath, managed with albuterol. - Reports congestion. - Constitutional: Reports inability to sleep due to coughing. - Reports dizziness when taking codeine. - GI: Reports diarrhea most of the time, uses Imodium as needed. - Reports bowel movements are seldom normal. - Neurological: Reports headaches. - ENT: Reports a raw throat from coughing. All systems reviewed & are unremarkable except as reviewed in HPI and above Physical exam (Primary Care) Vital Signs: Last Vital Signs Temp 97.9 F 04/04/25 08:21 Pulse 71 04/04/25 08:21 BP 122/80 04/04/25 08:21 Pulse Ox 99 04/04/25 08:21 Oxygen Delivery Method Room Air 04/04/25 08:21 BMI result Body Mass Index 28.0 Tobacco/Smoking Status: Tobacco use Status Tobacco use date assessed 04/04/25 04/04/25 09:59 Patient Tobacco Use Status Former Tobacco user 04/04/25 08:30 Tobacco use type Cigarette 04/04/25 08:30 e-Cigarette/Vaping Use Never Used 04/04/25 08:30 PHQ-9: PHQ-9 Score PHQ-9: Total score 9 04/04/25 09:59 Thrive Assessment: Date of Thrive Assessment Date Thrive assessed 04/04/25 04/04/25 09:59 Narrative General: +Alert and oriented, Well nourished, No acute distress. Eye: Pupils are equal, round and reactive to light, Intact accommodation, Extraocular movements are intact, Normal conjunctiva, Vision unchanged. HENT: Normocephalic, Atraumatic, Tympanic membranes are clear, Normal hearing, Oral mucosa is moist, No pharyngeal erythema, Ear canals patent. Respiratory: Lungs CTA bilaterally, No wheeze, Respirations are non-labored, Persistent cough noted. Cardiovascular: Regular rate, Regular rhythm, S1 auscultated, S2 auscultated, No murmur, Good pulses equal in all extremities, Normal peripheral perfusion, No edema. Gastrointestinal: Soft, Non-tender, Non-distended, Normal bowel sounds, No organomegaly, Reports diarrhea most of the time. Musculoskeletal: Normal range of motion, Normal strength, No tenderness, No swelling, No deformity, Normal gait. Integumentary: Warm, Dry, [place], Intact. Neurologic: Alert, Oriented, Normal sensory, Normal motor function, No focal defects, Cranial Nerves II-XII are grossly intact, Normal deep tendon reflexes. Psychiatric: Cooperative, Appropriate mood & affect, Normal judgment. 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 - Lisinopril is a potential cause, but the cough predates the medication. - The plan is to restart medications that were previously effective: gbev-jjw-gaoyote Robitussin DM (dextromethorphan), especially at night, and a prescription for benzonatate, to be used alternately. - The patient may also trial stopping lisinopril or carvedilol for 1-2 days to see if it helps. - Avoidance of nasal sprays and inhalers is recommended. - Codeine is a future option but will be avoided for now due to the risk of dependence. - The patient will see a recharger in May. Code(s): R05.3 - Chronic cough Category: Medical (2) Type 2 diabetes mellitus: Comment: - The patient's diabetes is uncontrolled, with an HbA1c of 6.7 and elevated morning glucose readings. - She has not been on medication since 2017. - Her use of honey for her cough is a contributing factor to her hyperglycemia. - The plan is to start metformin 500 mg once daily. - The patient was counseled to stop using honey. Code(s): E11.9 - Type 2 diabetes mellitus without complications Category: Medical Qualifiers: Diabetes mellitus terminal superintendent insulin use: without shelter use Diabetes mellitus complication status: without complication Qualified Code(s): E11.9 - Type 2 diabetes mellitus without complications (3) HTN (hypertension): Comment: - Her blood pressure is well-controlled on carvedilol 6.25 mg and lisinopril 2.5 mg. - Given a past hospitalization for uncontrolled hypertension, the current regimen will be continued. - However, she may trial holding a dose of lisinopril or carvedilol to assess its impact on her cough, with caution advised. Code(s): I10 - Essential (primary) hypertension Category: Medical Qualifiers: Hypertension type: unspecified Qualified Code(s): I10 - Essential (primary) hypertension (4) Insomnia: Comment: - The patient is dependent on lorazepam 0.5 mg for sleep. - A taper is initiated to discontinue the medication and reduce dependence. - She will take 0.25 mg nightly for two weeks, then 0.25 mg every other night for two weeks, then stop. - Concurrently, she will start taking melatonin (3-10 mg) at night to aid sleep. Code(s): G47.00 - Insomnia, unspecified Category: Medical Qualifiers: Insomnia type: drug-induced Qualified Code(s): F19.982 - Other psychoactive substance use, unspecified with psychoactive substance-induced sleep disorder (5) High cholesterol: Comment: - Continue pravastatin 80 mg. Code(s): E78.00 - Pure hypercholesterolemia, unspecified Category: Medical (6) Headache: Comment: - The patient will address this with her neurologist at her appointment next week. Code(s): R51.9 - Headache, unspecified Category: Medical Qualifiers: Headache type: unspecified Headache chronicity pattern: chronic headache Intractability: not intractable Qualified Code(s): R51.9 - Headache, unspecified; G89.29 - Other chronic pain (7) IBS (irritable bowel syndrome): Comment: - Continue current management with famotidine and Imodium as needed. Code(s): K58.9 - Irritable bowel syndrome, unspecified Category: Medical Qualifiers: Irritable bowel syndrome type: with diarrhea Qualified Code(s): K58.0 - Irritable bowel syndrome with diarrhea Plan: Health Maintenance: - Her mammogram this year was normal. - She is two years post-lung surgery and remains cancer-free. - She has an upcoming appointment with a neurologist for headaches. - She has a scheduled appointment with a recharger in May. Patient was informed and verbally consented to the use of an ambient scribe for clinic note documentation during this visit. Plan I have discussed the management plan for the patient's multiple chronic issues. For her chronic cough, we will discontinue the ineffective albuterol and fluticasone inhalers and instead restart fkos-kjl-lxcniju Robitussin DM and prescribe benzonatate, as she reported these were helpful in the past. I explained that while codeine is an option, we want to avoid it due to its potential for dependence. Regarding her uncontrolled diabetes, I am starting her on metformin 500 mg daily and strongly advised her to avoid honey, as it is elevating her blood sugar. I have also initiated a tapering plan to wean her off lorazepam for sleep, instructing her to start taking melatonin instead. We will continue her current medications for well-controlled hypertension and hyperlipidemia. The patient understands the plan and will follow up in four weeks. Medications: New metformin 500 mg PO DAILY 90 tabs 3RF 90 days lorazepam 0.25 mg (1/2 x 0.5 mg) PO BEDTIME 10 tabs 0RF anxiety 4 weeks benzonatate 100 mg PO BID-TID PRN 90 caps 3RF cough Discontinued albuterol sulfate 90 mcg/actuation Discontinued Reason: Doctor's Order 2 puffs PO Q4-6H PRN 1 ea 5RF for dyspnea lorazepam Discontinued Reason: Doctor's Order 0.5 mg PO BEDTIME 4 weeks 28 tabs 0RF anxiety Patient Instructions: - Stop taking the fluticasone and albuterol inhalers. - Take Robitussin DM, which you can buy ggos-pds-dsaxlci, for your cough as needed. - A prescription for benzonatate has been sent to your pharmacy; you can take this, alternating with the Robitussin. - Start taking metformin 500 mg once every morning for your diabetes. - Do not take honey, as it is making your blood sugar high. - You will slowly stop taking lorazepam for sleep. For two weeks, take half a pill (0.25 mg) every night. Then, for the next two weeks, take half a pill every other night. After that, you will stop completely. - Start taking melatonin (3 mg, 5 mg, or 10 mg) at night to help you sleep. - Continue taking your medications for blood pressure and cholesterol as prescribed. - Discuss your headaches with the neurologist at your appointment next . - Schedule a follow-up appointment in four weeks.
--- OUTSIDE RECORDS SUMMARY | 2025-04-04 10:54 | XMS_ITS | Patient Health Record ---
Author Organization Fabrice Crain III, MD Address [address] [place] [address] Care Team Providers Care General Accountant Name Role Phone Dannie Huang MD Primary [...] day Active Zoryve 0.3 % 1 application Senior Fire Protection Engineer ally Once a day Active Benzonatate 100 [...] Problem Status W/U Status Risk Notes Problem 2385831 Former smoker (Z87.891) Active confirmed She seems highly motivated not to smoke and we discussed strategies for prevention of relapse in times of stress and illness. Problem 848286370 Fibromyalgia (M79.7) Active confirmed She has occasional low-grade abdominal discomfort. Problem 930444446384 Type 2 diabetes mellitus with other specified complication (E11.69) Active confirmed She will continue on current therapy. Her fasting glucose levels have been under 150. She has been compliant with her medication. Problem 271352853 Other obesity (E66.8) Active confirmed Her body mass index is 30. We have discussed her weight loss strategy. We discussed diet and nutrition. We made a plan to lose weight at a rate of one half of a pound per week. Problem 48052300 Hyperlipidemia, unspecified (E78.5) Active confirmed Her lipids are well controlled and she will continue on her current regimen. Problem 42106015 Age-related osteoporosis without current pathological fracture (M81.0) Active confirmed She is asymptomatic at this time. Problem 74466941 Essential hypertension (I10) Active confirmed Her blood pressure is controlled and no change in her regimen as necessary. Problem 391370792 Gastroesophageal reflux disease without esophagitis (K21.9) Active confirmed She has occasional reflux, well-controll ed medication and no other therapy is necessary at this time. Problem Anemia (777820139) Anemia, unspecified type (D64.9) Active confirmed She has a mild microcytic anemia with a ferritin over 100. The microcytosis is new. She'll be followed carefully. It does not require treatment at this time. Problem 198033535 Malignant neopla sm of lower lobe of left lung (C34.32) Active confirmed There is no sign of recurrent disease at this time. Incisions are healed and the pain is slowly resolving. She has been scheduled for a followup CT scan of the chest by her thoracic surgeon next month. 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 Vital Signs Heart Rate 76 /min 10/04/2024 Temperature 98.1 degrees Fahrenheit 10/04/2024 Blood pressure diastolic 78 mm Hg 10/04/2024 Height 60 in 10/04/2024 Blood pressure systolic 140 mm Hg 10/04/2024 Weight 157 lbs 10/04/2024 BMI 30.66 kg/m2 10/04/2024 Encounters Encounter Location Date Provider Diagnosis Fabrice Crain III, MD [address] [place] [address] [address] [place] [address] 04/05/2024 Fabrice Crain Malignant neoplasm o f lower lobe of left lung C34.32 ; Former smoker Z87.891 ; Gastroesophageal reflux disease without esophagitis K21.9 ; Essential hypertension I10 ; Type 2 diabetes mellitus with other specified complication E11.69 ; Hyperlipidemia, unspecified E78.5 and Age-related osteoporosis without current pathological fracture M81.0 Fabrice Crain III, MD [address] [place] [address] [address] [place] [address] 10/04/2024 Fabrice Crain Malignant neoplasm o f [...] Provider Name:Fabrice Crain , 04/11/2025 10:00:00 AM, [address] [place] [address] [address], [place] [address], [place], [address], Insurance Providers Payer Name Payer Address Payer Phone Subscriber Number Group Number Insured Name Patient Relationship to Insured Coverage Start Date Coverage End Date MEDICARE NGS [address] [facility] [place] [phone] [id number] TREY TEE Self - patient is the insured [address] [facility] [place] [phone] [id number] GIANNATREY DAVIES Self - patient is the insured Medical (General) History Medical History History ICD Code Essential hypertension I10 Fibromyalgia M79.7 hiatal hernia hyperlipidemia osteoarthritis diabetes mellitus essential hypertension osteoporosis GERD overweight former smoker Stage I adenocarcinoma of th e lung, Left lower lobe, April 2023, [facility] Surgical History Surgery Date(Month/Year) Lung surgery, Left lower lobe 04/07/2023 colonoscopy, Dr. Blanchard 2013 Bladder suspention 1992 choleycystectomy 2005 Tubal ligation 1985 Hospitalization History Reason Date(Month/Year) Hospitalization for ' s parkinson's, alzheimer's, and dementia - september, year
--- OUTSIDE RECORDS SUMMARY | 2025-04-04 10:54 | XMS_ITS | Patient Health Record ---
Author Organization [facility] Address [address] [place] [address] Care Team Providers Care Delivery Supervisor Name Role Phone Sal (RETIRED) Dannie SHIELDS Primary Care Provide r Unavailable Fabrice Blanchard Unavailable [phone] Allergies Allergen (clinical drug ingredient) Drug/Non Drug [...] PRAY NASALLY TWICE DAILY IN EACH NOSTRIL Nasal; Duration: 90 Active Albuterol Sulfate (2.5 MG/3ML) 0.083% TAKE 1 VIAL USING NEBULIZER FOUR TIMES A DAY NEEDED Inhalation; Duration: 10 Active hydrALAZINE HCl 25 MG TAKE 1 TABLET BY M OUTH TWICE A DAY Oral; Duration: 90 Active Fluticasone Propionate HFA 110 MCG/ACT Inhalation; Duration: 60 Active Omeprazole 20 MG TAKE 1 CAPSULE BY MO UTH TWICE A DAY Oral; Duration: 30 Active Pravastatin Sodium 80 MG 1 tablet Orally Once a day Active LORazepam 1mg 1 mg at hs1/2 in am Orally BID Active Carvedilol 6.25 MG 1 Orally BID Active Dextromethorphan HBr Active Claritin Active Flovent HFA 110 MCG/ACT INHALE 1 PUFF(S) BY MOUTH TWICE A DAY Inhalation; Duration: 60 Active Immunizations Vaccine Route Administration Date [...] Problem Status W/U Status Risk Notes Problem Gastro-esophageal reflux disease without esophagitis (926713058) Gastro-esophageal reflux disease without esophagitis (K21.9) Active confirmed Problem Screening for malignant neoplasm of colon (385450624) Encounter for screening for malignant neoplasm of colon (Z12.11) Active confirmed Problem History of adenomatous polyp of colon (775505053) History of adenomatous polyp of colon (Z86.010) Active confirmed Problem Diverticular disease of colon (263751424) Diverticulosis of large intestine without perforation or abscess without bleeding (K57.30) Active confirmed Problem Generalized abdominal pain (536649035) Generalized abdominal pain (R10.84) Active confirmed Problem Gastroesophageal reflux disease (835956656) Gastroesophageal reflux disease, esophagitis presence not specified (K21.9) Active confirmed Problem Irritable bowel syndrome (38944941) Irritable bowel syndrome with both constipation and diarrhea (K58.2) Active confirmed Problem Chronic cough (65486698) Chronic cough (R05.3) Active confirmed Plan Of [...] Date MEDICARE OF [place] [address] [place], [place] [id number] TREY TEE Self - patient is the insured [facility] [address] [place] [address] [phone] [id number] TREY TEE Self - patient is the insured Medical (General) History Medical History History ICD Code Irritable bowel syndrome ? hx of ulcer disease in the Colonoscopy 3-28-1569-negati ve except diverticulosis and internal hemorrhoids Colon polyps-tubular adenomas removed in 2001 and 2004 GERD--EGD in 1994 neg-Bx neg for H.pylor i NIDDM fibromyalgia hyperlipidemia hypertension Denies NM,CVA,Lung disease,renal disease EGD in 10/2012--neg except for a small HH --no celiac disease, no H.pylori Colonoscopy 08/2013 and in --negative except for sigmoid diverticulosis and internal hemorrhoids Lung cancer with surgery as below in 2022 Surgical History Surgery Date(Month/Year) bladder suspension 1992 cholecystectomy 2003 tubal ligation 1985 LLL lung resection for cancer-Dr. Shaffer at [facility] 04/07/2023
--- OUTSIDE RECORDS SUMMARY | 2025-04-04 10:55 | XMS_ITS | Clinical Summary ---
Author Organization [facility] Address [address] [place] [address] Phone Care Team Providers Care Claim Rep Name Role Phone Dannie Huang MD Primary Care Provider [phone] Allergies Active Allergy Reactions Criticality Noted Date [...] general and how their size shape and chemical cell changer time affect her level of suspicion [...] DM2 (diabetes mellitus, type 2) ([facility] V24, [facility] V28) DX:DM2 [...] 10/31/2024 11:30 AM EDT Plan of Treatment Upcoming Encounters Date Type Department Care Team (Late st Contact Info) Description 05/02/2025 3:30 PM EST Appointment [facility] CT Scan [address] [place] [id number] 05/15/2025 10:00 AM EST Office Visit Thoracic Surgery - [place] [address] [place] [phone] [address] [place] [address] Health Maintenance Due Date Last Done Comments [...] COVID-19 Vaccine (4 - 2023-2 5 season) 2025 03/16/2024, 07/05/2021, [...] age to complete this topic Insurance MEDICARE [facility] [address] [place] [address] Care Teams Claim Rep Relationship Specialty Start Date End Date Dannie Huang MD [address] [place] [address] [address] [place] PCP - General 03/22/18
--- OUTSIDE RECORDS SUMMARY | 2025-04-04 10:55 | XMS_ITS | Patient Health Record ---
Author Organization [facility] Address [address] [place] [address] Care Team Providers Care Day Spa Manager Name Role Phone Omar, Karin Primary Care Provider Malik Albert Unavailable [phone] Radha Weir Unavailable [phone] Allergies Allergen (clinical drug ingredient) Drug/Non Drug [...] Problem Acquired hammer toe of right foot (2333002720709179 ) Other hammer toe(s) (acquired), right foot (M20.41) Active confirmed Problem Acquired hammer toe of left foot (5034103298611502 ) Other hammer toe(s) (acquired), left foot (M20.42) Active confirmed Problem Polyneuropathy due to type 2 diabetes mellitus (316066497) Type 2 diabetes mellitus with diabetic polyneuropathy (E11.42) Active confirmed Vital Signs Blood pressure diastolic 65 mm Hg 01/10/2025 Height 5 ft 4 in in 01/10/2025 Blood pressure systolic 120 mm Hg 01/10/2025 Weight 157 lbs 01/10/2025 BMI 26.95 kg/m2 01/10/2025 Procedures Procedure Date Ordered Date Performed Result Body Sit e 08992-GRNDABE NAIL, 6 OR MORE 06/03/2024 N/A 74005-INCG SKIN LESIONS, OVER 4 06/03/2024 N/A 52567-DXAGPMV NAIL, 6 OR MORE 10/08/2024 N/A 86996-FLUI SKIN LESIONS, OVER 4 10/08/2024 N/A 47518-MMXXZJM NAIL, 6 OR MORE 01/10/2025 N/A 17178-GLXC SKIN LESIONS, OVER 4 01/10/2025 N/A Encounters Encounter Location Date Provider Diagnosis [address] [address] 06/03/2024 Radha Weir Type 2 diabetes mellitus with diabetic polyneuropathy E11.42 and Tinea unguium B35.[address] [address] 10/08/2024 Malikguillermina MorejonStarr Type 2 diabetes mellitus with diabetic polyneuropathy E11.42 ; Tinea unguium B35.1 ; Other hammer toe(s) (acquired), right foot M20.41 and Other hammer toe(s) (acquired), left foot M20.[address] [address] 01/10/2025 Malikguillermina MorejonStarr Type 2 diabetes mellitus with diabetic polyneuropathy E11.42 and Tinea unguium B35.[address] [address] 09/24/2024 Radha Weir Assessments Encounter Date Diagnosis [...] E11.42) 01/10/2025 Tinea unguium (ICD-10 - B35.1) 10/08/2024 Other hammer toe(s) (acquired), right foot (ICD-10 - M20.41) Patient Educated with: DIABETIC FOOT CARE INSTRUCTIONS. pdf (DIABETIC FOOT CARE INSTRUCTIONS. pdf) 10/08/2024 Other hammer toe(s) (acquired), left foot (ICD-10 - M20.42) Plan Of Treatment Pending Test Test Name Order Date X ray : Ankle, left 3V 11/15/2018 87175-IXMHKKI NAIL, 6 OR MORE 05/17/2018 55135-TQELYOZ NAIL, 6 OR MORE 06/03/2024 48652-VQWDOTL NAIL, 6 OR MORE 10/08/2024 52809-WGCHKNI NAIL, 6 OR MORE 01/10/2025 84212-KEGIAFD NAIL, 6 OR MORE 02/23/2011 99194-IWGRSRR NAIL, 6 OR MORE 05/11/2011 82154-TKGTTVF NAIL, 6 OR MORE 07/20/2011 19574-EUEZKQB NAIL, 6 OR MORE 10/03/2011 06835-KNRURVT NAIL, 6 OR MORE 12/12/2011 15330-SZFAJPZ NAIL, 6 OR MORE 02/22/2012 00788-DWKITZH NAIL, 6 OR MORE 05/09/2012 47451-PXAWMZM NAIL, 6 OR MORE 08/08/2012 43885-EFTAPLU NAIL, 6 OR MORE 11/08/2012 88787-BMZTODR NAIL, 6 OR MORE 01/30/2013 22579-WQUKJVB NAIL, 6 OR MORE 04/24/2013 20749-ZGJZSZE NAIL, 6 OR MORE 07/03/2013 92720-AUXITLO NAIL, 6 OR MORE 09/16/2013 83581-GIODGMJ NAIL, 6 OR MORE 12/23/2013 80259-BAEATKC NAIL, 6 OR MORE 03/27/2014 40908-MAEKVYG NAIL, 6 OR MORE 06/09/2014 73225-IGLGVXN NAIL, 6 OR MORE 08/18/2014 65625-XVRDKLF NAIL, 6 OR MORE 10/29/2014 37087-CBZYPLE NAIL, 6 OR MORE 01/12/2015 81949-UXZUZLP NAIL, 6 OR MORE 04/13/2015 58651-HYGPNJA NAIL, 6 OR MORE 06/29/2015 82643-EAUHBPL NAIL, 6 OR MORE 09/14/2015 49879-URQRBOP NAIL, 6 OR MORE 12/17/2015 91160-SVJIXST NAIL, 6 OR MORE 03/17/2016 30004-VAUWMFN NAIL, 6 OR MORE 06/16/2016 24872-MCTCXAV NAIL, 6 OR MORE 08/18/2016 84864-QDAJDUL NAIL, 6 OR MORE 11/16/2016 94715-BKJSQAV NAIL, 6 OR MORE 02/16/2017 17806-IJWEAIJ NAIL, 6 OR MORE 05/18/2017 38178-JVZWBEG NAIL, 6 OR MORE 08/17/2017 44655-MJKROWN NAIL, 6 OR MORE 11/16/2017 96815-RBYEICZ NAIL, 6 OR MORE 02/15/2018 40661-Tttlxnpj Plate 05/18/2017 34667-Qdvdznhf Plate 10/29/2014 13146-Ypvcjchk Plate 08/18/2014 54237-Rlmckhza Plate 06/09/2014 79550-Fgvkjatq Plate 03/27/2014 66418-JDYR SKIN LESIONS, OVER 4 01/11/20 25 38435-VWQY SKIN LESIONS, OVER 4 10/09/19 25 05265-AELQ SKIN LESIONS, OVER 4 06/03/20 24 89393-SISZ SKIN LESIONS, OVER 4 08/17/19 19 80637-LPKA SKIN LESIONS, OVER 4 11/16/19 19 71436-MVEG SKIN LESIONS, OVER 4 03/14/20 19 30296-PQAF SKIN LESIONS, OVER 4 06/17/19 20 62997-RTUH SKIN LESIONS, OVER 4 10/17/19 20 92682-FASI SKIN LESIONS, OVER 4 01/22/20 20 65040-KVDO SKIN LESIONS, OVER 4 04/22/20 20 74474-IGZC SKIN LESIONS, OVER 4 07/29/19 21 76576-UKTL SKIN LESIONS, OVER 4 10/29/19 21 88680-GBSQ SKIN LESIONS, OVER 4 01/28/20 21 55464-IEHJ SKIN LESIONS, OVER 4 11/24/20 21 00610-UOKR SKIN LESIONS, OVER 4 08/05/19 22 08042-IHRH SKIN LESIONS, OVER 4 06/09/19 15 50103-YJWH SKIN LESIONS, OVER 4 03/27/20 14 39175-JCVI SKIN LESIONS, OVER 4 12/24/19 14 10243-SGYJ SKIN LESIONS, OVER 4 09/17/19 14 75356-EUAA SKIN LESIONS, OVER 4 07/03/19 14 77529-NUQM SKIN LESIONS, OVER 4 04/24/20 13 67048-EVSZ SKIN LESIONS, OVER 4 01/31/20 13 34409-TKUK SKIN LESIONS, OVER 4 11/09/19 13 68570-MTAR SKIN LESIONS, OVER 4 08/09/19 13 24592-ZMOQ SKIN LESIONS, OVER 4 05/09/20 12 69705-SEEI SKIN LESIONS, OVER 4 02/22/20 12 03504-WZHU SKIN LESIONS, OVER 4 12/12/19 12 21831-VARK SKIN LESIONS, OVER 4 10/03/19 12 86742-HHOW SKIN LESIONS, OVER 4 07/20/19 12 50221-EDVU SKIN LESIONS, OVER 4 05/11/20 11 99137-CZQF SKIN LESIONS, OVER 4 02/24/20 11 74005-WGUD SKIN LESIONS, OVER 4 08/19/19 15 77540-ZKLK SKIN LESIONS, OVER 4 10/30/19 15 03687-AISE SKIN LESIONS, OVER 4 04/13/20 15 70572-LFDL SKIN LESIONS, OVER 4 01/13/20 15 50798-DCIJ SKIN LESIONS, OVER 4 03/17/20 16 67914-LBSF SKIN LESIONS, OVER 4 12/17/19 16 27594-LUJL SKIN LESIONS, OVER 4 09/14/19 16 12691-YPGA SKIN LESIONS, OVER 4 06/29/19 16 33509-CTKG SKIN LESIONS, OVER 4 05/18/20 17 92986-JHWM SKIN LESIONS, OVER 4 02/17/20 17 60087-TGWA SKIN LESIONS, OVER 4 08/19/19 17 88643-SNYE SKIN LESIONS, OVER 4 11/17/19 17 82117-BTBW SKIN LESIONS, OVER 4 06/16/19 17 66429-ZVJC SKIN LESIONS, OVER 4 05/17/20 18 87389-GYDH SKIN LESIONS, OVER 4 02/16/20 18 50711-WPXA SKIN LESIONS, OVER 4 11/17/19 18 36036-FOCW SKIN LESIONS, OVER 4 08/18/19 18 85335- Removal of Foreign Body, Subcut 0 06/17/2019 Next Appt Details Provider Name:Malik Clements , 05/09/2025 12:15:00 PM, [address] [facility], [place], [address], Insurance Providers Payer Name Payer Address Payer Phone Subscriber Number Group Number Insured Name Patient Relationship to Insured Coverage Start Date Coverage End Date Medicare National Govt [facility] [address] [place] [address] [id number] Isaías zJulienne Self - patient is the insured [facility] [address] [place] [id number] Julienne Chand Self - patient is [...] Ugent Care /PCP- Fell Broke Nose 1 C - Fell / concousin 01/07/17 [facility] for 2 day s roxie , for chest pain, high blood pressure and a head bump 03/2013
== END 2025-04-04 10:24 | disposition home or self-care (01) ==
LOC: HO.HMCHD 09:44
PROVIDERS: PCP Student in an Organized Health Care Education/Training Program; Visit Provider Student in an Organized Health Care Education/Training Program
DX: R05.3 Chronic cough (principal); E11.9 Type 2 diabetes mellitus without complications; I10 Essential (primary) hypertension; F19.982 Other psychoactive substance use, unspecified with psychoactive substance-induced sleep disorder; E78.00 Pure hypercholesterolemia, unspecified; R51.9 Headache, unspecified; G89.29 Other chronic pain; K58.0 Irritable bowel syndrome with diarrhea

== ENCOUNTER → 2025-04-04 09:44 | Outpatient (BNVA) | payer MEDICARE, OTHER, SELFPAY | PROVIDERS: PCP Student in an Organized Health Care Education/Training Program; Visit Provider Student in an Organized Health Care Education/Training Program | DX: R05.3 Chronic cough (principal); E11.9 Type 2 diabetes mellitus without complications; I10 Essential (primary) hypertension; F19.982 Other psychoactive substance use, unspecified with psychoactive substance-induced sleep disorder; E78.00 Pure hypercholesterolemia, unspecified; R51.9 Headache, unspecified; G89.29 Other chronic pain; K58.0 Irritable bowel syndrome with diarrhea; Z79.899 Other long term (current) drug therapy; Z13.39 Encounter for screening examination for other mental health and behavioral disorders; Z13.30 Encounter for screening examination for mental health and behavioral disorders, unspecified | CPT/HCPCS: 96127; 99212 ==

== ENCOUNTER 2025-04-10 10:43 | Outpatient (AMB) | payer MEDICARE, OTHER, SELFPAY ==
--- OUTSIDE RECORDS SUMMARY | 2023-10-11 04:53 | XMS_ITS ---
Author Organization Fabrice Crain III, MD Address [address] [place] [address] [place] [address] Care Team Providers Care Barrel Plater Name Role Phone Dannie Huang MD Primary Care Provider Dr. 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 C34.32 Assessments Encounter Date Diagnosis (ICD Code) Assessment Notes Treatment Notes Treatment Clinical Notes 10/11/2023 Malignant neoplasm of lower lobe of left lung (ICD-10 - C34.32) Plan Of Treatment Pending Test Test Name Order Date CT chest w con 10/11/2023 Next Appt Details Provider Name:Fabrice Crain , 04/11/2025 10:00:00 AM, [address] [place] [address] [place], [address], Progress Notes * KHOA CANDELARIOADOB:[birth year] (78 yo F)Acc No.[id number]:10/11/2023 Patient: TREY KOWALSKI :1945 A ge:78 Y S ex:Female Address:[address] [place], [place] [address], [address] Subjective: * Chief Complaints: * C T Chest W/ IV CONTRAST ORDER * Medical History: * Surgical History: * Hospitalization/Major Diagno stic Procedure: * Medications: Objective: Assessment: * Assessment: 1. M alignant neoplasm of lower lobe of left lung - C34.32 Plan: * Treatment: * Procedure Codes: * true * Date: Generated for Bryan lee/Emily/Reneaitting on: 06/10/2024 01:00 PM EST
--- OUTSIDE RECORDS SUMMARY | 2023-10-16 08:06 | XMS_ITS ---
Author Organization Fabrice Crain III, MD Address [address] [address] Care Team Providers Care Geophysical E Logger Name Role Phone Dannie Huang MD Primary Care Provider Dr. Fabrice Butcher III Unavailable REASON FOR VISIT Regarding CT Chest Social History Sex Assigned At : Social History Observation Description Sex Assigned At Female Encounters Encounter Location Date Provider Diagnosis Fabrice Crain III, MD [address] [place] [address] [place] [address] 10/16/2023 Fabrice Crain Plan Of Treatment Next Appt Details Provider Name:Fabrice Crain , 04/11/2025 10:00:00 AM, [address] [place] [address] [place], [address], Progress Notes * KHOA CANDELARIOADOB:[birth year] (78 yo F)Acc No.[id number]:10/16/2023 Patient: Carlos TREY ED LA PAZ :1945 A ge:78 Y S ex:Female Address:[address] [facility], [address] * true * Date: Generated for Emai ng/Farubeng/eTransmitting on: 06/10/2024 12:59 PM EST
--- OUTSIDE RECORDS SUMMARY | 2023-10-27 05:30 | XMS_ITS ---
Author Organization [facility] Address [address] [place] [address] Care Team Providers Care Delivery Man Name Role Phone Sal (RETIRED) Dannie SHIELDS Primary Care Provide r Unavailable Fabrice Blanchard Unavailable [phone] REASON FOR VISIT screening,hx polyps,gerd Problems Problem Type SNOMED Code ICD Code Onset Dates Problem Status W/U Status Risk Notes Problem Diverticular disease of colon (054911589) Diverticulosis of large intestine without perforation or abscess without bleeding (K57.30) Active confirmed Problem Gastro-esophagea l reflux disease without esophagitis (660481141) Gastro-esophageal reflux disease without esophagitis (K21.9) Active confirmed Encounters Encounter Location Date Provider Diagnosis [facility] Outpatient [address] [place], [place] [id number] 10/27/2023 Fabrice Blanchard Encounter for scre ening colonoscopy Z12.11 ; Colon polyps K63.5 ; Diverticulosis of large intestine without perforation or abscess without bleeding K57.30 ; Other hemorrhoids K64.8 ; Hiatal hernia K44.9 and Gastro-esophageal reflux disease without esophagitis K21.9 Assessments Encounter Date Diagnosis (ICD Code) Assessment Notes Treatment Notes Treatment Clinical Notes Section Notes 10/27/2023 Encounter for screening colonoscopy (ICD-10 - Z12.11) 10/27/2023 Colon polyps (ICD-10 - K63.5) 10/27/2023 Diverticulosis of large intestine without perforation or abscess without bleeding (ICD-10 - K57.30) 10/27/2023 Other hemorrhoids (ICD-10 - K64.8) 10/27/2023 Hiatal hernia (ICD-10 - K44.9) 10/27/2023 Gastro-esophageal reflux disease without esophagitis (ICD-10 - K21.9) Plan Of Treatment No Information Progress Notes * TREY BROWN IDOB:1944 (80 yo F)Acc No.[id number]:10/27/2023 EGD and COL/MAC Patient: TREY KOWALSKI I Provider: Tory Blanchard MD :1945 A ge:78 Y S ex:Female Date:10/27/2023 Address:[address] [place] [address] , [id number] Pcp:Dannie Huang (RETIRED )MD Subjective: * Chief Complaints: * 1 . Screening,hx polyps,gerd. * Medical History: Objective: * Vitals: Assessment: * Assessment: 1. E ncounter for screening colonoscopy - Z12.11 (Primary) 2 . C olon polyps - K63.5 3 . D iverticulosis of large intestine without perforation or abscess without bleeding - K57.30 4 . O ther hemorrhoids - K64.8 5 . Hiatal hernia - K44.9 6 . G mark anthony-esophageal reflux disease without esophagitis - K21.9 Plan: * Treatment: * Procedure Codes: 4 5385 LESION REMOVAL COLONOSCOPY, Modifiers: PT , 0529F INTRVL 3+YRS PTS CLNSCP DOCD, 0528F RCMND FLW-UP 10 YRS DOCD, Modifiers: 1P , 29987 UPPR GI ENDOSCOPY, DIAGNOSIS * * The named appointment provid er may or may not be the originator of this progress note, and it is not deemed complete until electronically signed by the appointment provider. Sign off status: Pending * Provider: Tory Blanchard MD Date: 0 10/27/2023 Generated for Bryan lee/Emily/Evysmitting on: 06/10/2024 12:58 PM EST
--- OUTSIDE RECORDS SUMMARY | 2023-11-16 05:00 | XMS_ITS ---
Author Organization [facility] Address [address] [place] [address] Care Team Providers Care Executive Vice President Name Role Phone OmarJessica castroah Primary Care Provider Malik Albert Unavailable [phone] Param Arora Unavailable [phone] REASON FOR VISIT Painful nail(s) aggrevated by shoes and causing difficulty standing/walking. Medications Medication SIG (Take, Route, Frequency, Duration) Notes Start Date End Date Status Extra Depth Diabetic Shoes with 3 Pair Custom heat-molded multi-density innersoles for 1 year Dx: Active Encounters Encounter Location Date Provider Diagnosis [facility] [address] [place] [address] 11/16/2023 Param Arora Tinea unguium B35.1 ; Type 2 diabetes mellitus with diabetic polyneuropathy E11.42 ; Pain in right toe(s) M79.674 ; Pain in left toe(s) M79.675 ; Hallux valgus (acquired), left foot M20.12 ; Hallux valgus (acquired), right foot M20.11 ; Ingrowing nail L60.0 ; Primary osteoarthritis, left ankle and foot M19.072 and Metatarsalgia, right foot M77.41 Assessments Encounter Date Diagnosis (ICD Code) Assessment Notes Treatment Notes Treatment Clinical Notes Section Notes 11/16/2023 Tinea unguium (ICD-10 - B35.1) 11/16/2023 Type 2 diabetes mellitus with diabetic polyneuropathy (ICD-10 - E11.42) 11/16/2023 Pain in right toe(s) (ICD-10 - M79.674) 11/16/2023 Pain in left toe(s) (ICD-10 - M79.675) 11/16/2023 Hallux valgus (acquired), left foot (ICD-10 - M20.12) 11/16/2023 Hallux valgus (acquired), right foot (ICD-10 - M20.11) 11/16/2023 Ingrowing nail (ICD-10 - L60.0) 11/16/2023 Primary osteoarthritis, left ankle and foot (ICD-10 - M19.072) 11/16/2023 Metatarsalgia, right foot (ICD-10 - M77.41) Plan Of Treatment Medication Medication Name Sig Start Date Stop Date Notes Extra Depth Diabetic Shoes w ith 3 Pair Custom heat-molded multi-density innersoles for 1 year Dx: Next Appt Details Follow Up: 3 Months, Reason: Provider Name:Malik Clements , 05/09/2025 12:15:00 PM, [address] [place] [address], [phone], Procedure Notes * Category Sub-Category Detail Notes Debride Nail 6-10 Nail debridement Nail debridem ent performed extensively to reduce/remove overall nail length and girth, subungual debris, and necrotic tissue, by manual and electrical means with use of a nail nipper and/or dremel, to more viable healthy nail plate or bed tissue 6-10. Silver nitrate used for any petechial bleeding as necessary. Patient chooses, no pharmaceutical tx (59964) Keratoma Treatment Parring or Cutting o f Benign Hyperkeratotic Lesion(s) 55721 ( >4 Lesions) - The Benign hyperkeratotic lesions, as described above were pared, and/or cut utilizing a sterile #15 blade, tissue nippers, and/or dremel Progress Notes * Yesica CANDELARIO:[birth year] (80 yo F)Acc No.[id number]:11/16/2023 Progress Note Patient: Julienne KOWALSKI Provider: Sid Syed DPM :1945 A ge:78 Y S ex:Female Date:11/16/2023 Address:[address] [place] [address] [place] w, [phone] Pcp:Karin Nelson Subjective: * Chief Complaints: * 1 . Painful nail(s) aggrevated by shoes and causing difficulty standing/walking.. * HPI: P ainful Nails: Pt States Last PCP Visit: D ate: 0 07/07/2023 Misc: 1 06/07/[address] Cheng at [facility] for lung ca nodule with no need for radiation or chemo. A nkle Pain: Nature: s welling, tenderness, aching, throbbing. Location: O utside aspect of the Left ankle. Duration: s everal months . Aggravated by: b edtime. Treatments: i ce. F oot Pain: Nature: a frederick, tenderness. Location: B ottom, Forefoot, RIGHT. Onset: u nknown. Course: i mproved. Aggravated: W orse at night when in bed. * ROS: G eneral/Constitutional: Nausea d enies. V omiting d enies. H luke Thirst d enies. L oss appetite d enies. C hills d enies. F atigue d enies.?Fever d enies. N ight Sweats d enies. U nexplained weight loss d enies. U nexplained weight gain d enies. H EENTM: Dentures d enies. D izziness d enies. G lasses/contacts a dmits. R etinopathy d enies. B lurred/double vision d enies. T MJ?denies. D ischarge/drainage d enies. I mplants d enies. S ore throat d enies. D ental implants d enies. H hyun of hearing d enies. D ifficulty chewing/swallowing/speaking d enies. N ose bleeds d enies. S ore mouth d enies. ? R espiratory: On Oxygen d enies. P neumonia/pleurisy d enies.?Bronchitis d enies. E mphysema d enies. C oughing a dmits. C ough blood?denies. S hortness of breath d enies. W heezing d enies. C ardiovascular: Pacemaker d enies. M VOCATIONAL REHABILITATION SPECIALIST d enies. W PW d enies. C HF d enies. H eart attack d enies. S eptal defect d enies. R apid beat d enies. C hest pain d enies. A trial Fib. d enies. M urmur/Palpitations d enies. G astrointestinal: Hemorrhoids d enies. S tomach/Abdominal pain d enies. D ark blood stool d enies. I rritable bowel d enies. C onstipation d enies. D iarrhea d enies. H ematology: Swelling d enies. C lots d enies. V aricose Veins d enies. B ruising d enies. B leeding problem d enies. G enitourinary: Blood urine d enies. F requent/Painfu/urination/bladder control d enies. K idney stones d enies. I nfection (UTI) d enies. N ephropathy d enies. s ex trans dis (STD) d enies. P rostate d enies. M usculoskeletal: Hammertoes d enies. B unions a dmits. B ack Pain a dmits. M uscle Cramps/ Resting d enies. M uscle cramps / walking d enies.?Generalized aches and pains d enies. W eakness d enies. I nteg.: Evangelista d enies. S cars d enies. C orns/calluses?denies. I ngrown nails a dmits. P ainful nails d enies. O pen Sores d enies. R ashes d enies. N eurologic: Difficulty sleeping d enies. B rain disorder d enies. N umbness d enies. B alance trouble d enies. C onfusion d enies. F ainting/blackouts d enies. T ingling d enies. T remors d enies. * Medical History: Objective: * Vitals: * Examination: O phthalmology Referral: DIABETES EYE EXAM D iabetic Retinopathy Screening: N o 03/2022 F indings of Diabetic Eye Exam: n o retinopathy N eurological: SENSORY: Neurological exam demonstrates, reduced vibration sensation, B/L, at Forefoot- slight, Neurological exam demonstrates pop lateral left ankle, 5.07 monofilament test performed at plantar aspects of 5 varied sites per foot shows sensation, reduced , B/L, Neurological exam demonstrates pop plantar right 2nd mtpj. V ascular: DP PULSES (B): 2/4, B/L. PT PULSES (B): 1/4, B/L. CAPILLARY FILL TIME: 3 secs. per digit, b/l. TROPHIC CONDITION-TEXTURE/ELASTICITY/TURGOR/HAIR GROWTH (B):?decreased, B/L. TEMPERTURE GRADIENT (C): d ecreased, B/L. EDEMA (C): 1/4, B/L, Ankle(s). CLAUDICATION (C): n egative, b/l . REST PAIN: n egative. CLUBBING: a bsent. N ails: NAILS are: e longated,overgrown,dystrophic,greater than 3mm thick,discolored and friable with crumbly malodorous subungual debris, with dull pain on palpation due to neuropathy, 1-5 B/L. D ermatologic: SKIN FINDINGS: S kin exam reveals Keratotic lesion(s) located at, Medial plantar, TA, T5 , SUB MTH (s), 1, B/L , Heel(s), B/L ; lipoma karl ankles left more than right. I ngrown Nail: INSPECTION: Reveals nail incurvation, dull pain on palpation due to neuropathy, groove hypertrophy, Medial nail border, T6, Bilateral nail borders, TA, T5, T1. Assessment: * Assessment: 1. T inea unguium - B35.1 (Primary) 2 . T ype 2 diabetes mellitus with diabetic polyneuropathy - E11.42 3 . P ain in right toe(s) - M79.674 ?4. P ain in left toe(s) - M79.675 5 . H allux valgus (acquired), left foot - M20.12 6 . H allux valgus (acquired), right foot - M20.11 7 .?Ingrowing nail - L60.0 (Primary) 8 . P rimary osteoarthritis, left ankle and foot - M19.072 9 . M etatarsalgia, right foot - M77.41 Plan: * Treatment: * Procedures: D ebride Nail 6-10: Nail debridement N ail debridement performed extensively to reduce/remove overall nail length and girth, subungual debris, and necrotic tissue, by manual and electrical means with use of a nail nipper and/or dremel, to more viable healthy nail plate or bed tissue 6-10. Silver nitrate used for any petechial bleeding as necessary. Patient chooses, no pharmaceutical tx (30876). K eratoma Treatment: Parring or Cutting of Benign Hyperkeratotic Lesion(s) 1 1057 ( >4 Lesions) - The Benign hyperkeratotic lesions, as described above were pared, and/or cut utilizing a sterile #15 blade, tissue nippers, and/or dremel. * Procedure Codes: 1 1721 DEBRIDE NAIL, 6 OR MORE, Modifiers: XS , 96828 TRIM SKIN LESIONS, OVER 4, Modifiers: XS * Follow Up: 3 Months * Images: * The named appointment provid er may or may not be the originator of this progress note, and it is not deemed complete until electronically signed by the appointment provider. Sign off status: Pending * Provider: Sid Syed DPM Date: 0 11/16/2023 Generated for Bryan lee/Emily/Sher on: 06/10/2024 01:00 PM EST History and Physical Notes * HPI (History of Present Illness) Category Sub-Category Detail Notes Category Not es Ankle Pain Duration: several months Nature: swelling, tenderness , aching, throbbing Treatments: ice Location: Outside aspect of th e Left ankle Aggravated by: bedtime Painful Nails Misc: 04/07/[address] Cheng at [facility] for lung ca nodule with no need for radiation or chemo Pt States Last PCP Visit: Date:: 07/07/2023 Foot Pain Nature: aching, tenderness Location: Bottom, Forefoot, RI GHT Onset: unknown Course: improved Aggravated: Worse at night when in bed Examination Category Sub-Category Detail Notes Category Not es Ingrown Nail INSPECTION: Reveals nail inc urvation, dull pain on palpation due to neuropathy, groove hypertrophy, Medial nail border, T6, Bilateral nail borders, TA, T5, T1 Neurological SENSORY: Neurological exa m demonstrates, reduced vibration sensation, B/L, at Forefoot-slight, Neurological exam demonstrates pop lateral left ankle, 5.07 monofilament test performed at plantar aspects of 5 varied sites per foot shows sensation, reduced , B/L, Neurological exam demonstrates pop plantar right 2nd mtpj Dermatologic SKIN FINDINGS: Skin exam reveal s Keratotic lesion(s) located at, Medial plantar, TA, T5 , SUB MTH (s), 1, B/L , Heel(s), B/L ; lipoma karl ankles left more than right Ophthalmology Referral DIABETES EYE EXAM Diabeti c Retinopathy Screening:: No 03/2022 Findings of Diabetic Eye Exam:: no retin opathy Vascular DP PULSES (B): 2/4, B/L PT PULSES (B): 1/4, B/L CAPILLARY FILL TIME: 3 secs. per digit, b/l TEMPERTURE GRADIENT (C): decreased, B/L TROPHIC CONDITION-TEXTURE/ELASTICITY/TUR GOR/HAIR GROWTH (B): decreased, B/L EDEMA (C): 1/4, B/L, Ankle(s) CLUBBING: absent CLAUDICATION (C): negative, b/l REST PAIN: negative Nails NAILS are: elongated,overgr own,dystrophic,greater than 3mm thick,discolored and friable with crumbly malodorous subungual debris, with dull pain on palpation due to neuropathy, 1-5 B/L
--- OUTSIDE RECORDS SUMMARY | 2023-12-01 05:30 | XMS_ITS ---
Author Organization Fabrice Crain III, MD Address [address] [place] [address] Care Team Providers Care Sql Engineer Name Role Phone Dannie Huang MD Primary Care Provider Dr. Fabrice Butcher III Unavailable [phone] Allergies Allergen (clinical drug ingredient) Drug/Non Drug Allergy documented on EMR Reaction Allergy Type Onset Date Status cortisone Cortisone elevated BP and Glucose Drug Allergy Active niacin Niacin Unknown Drug Allergy Active Lactose Unknown Drug Allergy Active REASON FOR VISIT Non-small cell carcinoma left lower lobe, Hypertension, Diabetes, Hyperlipidemia, Osteoporosis, . Medications Medication SIG (Take, Route, Frequency, Duration) Notes Start Date End Date Status Claritin 10 MG 1 tablet Orally Once a day Active Omeprazole 20 MG 1 capsule 30 minutes before morning meal Orally Twice a day Active Benzonatate 100 MG TAKE 1 CAPSULE BY [facility] EVERY 8 HOURS NEEDED FOR COUGH Oral Active Albuterol Sulfate HFA 108 (90 Base) MCG/ACT 1 puff as needed Inhalation every 4 hrs Active Zoryve 0.3 % 1 application Entry Table Operator ally Once a day Active LORazepam 1 MG 1 1/2 tablet at bedt al as needed Oral Twice a day Active Azelastine-Fluticasone 137-50 MCG/ACT 1 spray in each nostril Nasally Twice a day Active Pravastatin Sodium 80 MG 1 tablet Orally Once a day Active Carvedilol 6.25 MG Orally Twice a day Active hydrALAZINE HCl 25 MG 1 tablet with food Orally twice a day Active Fluticasone Furoate 100 MCG/ACT 1 puff Inhalation Once a day Active Social History Tobacco Use: Social History Observation Description Date Details (start date - stop date) Former Smoker NA - NA Sex Assigned At : Social History Observation Description Sex Assigned At Female Tobacco Use/Smoking Question Answer Notes Patient is a former smoker How long has it been since you last smoked? > 10 years Additional Findings: Tobacco Non-User Ex-cigaret te smoker Problems Problem Type SNOMED Code ICD Code Onset Dates Problem Status W/U Status Risk Notes Problem [id number] Other obesity (E66.8) Active confirmed Her body mass index is 30. We have discussed her weight loss strategy. We discussed diet and nutrition. We made a plan to lose weight at a rate of one half of a pound per week. Vital Signs Temperature 97.8 degrees Fahrenheit 12/01/19 24 Blood pressure systolic 137 mm Hg 12/01/19 24 Blood pressure diastolic 66 mm Hg 024 Heart Rate 74 /min 12/01/2023 Height 60 in 12/01/2023 Weight 158 lbs 12/01/2023 BMI 30.85 kg/m2 12/01/2023 Encounters Encounter Location Date Provider Diagnosis Fabrice Crain III, MD [address] [place] [address] [place] [address] 12/01/2023 Fabrice Crain Malignant neoplasm o f lower lobe of left lung C34.32 ; Essential hypertension I10 ; Fibromyalgia M79.7 ; Type 2 diabetes mellitus with other specified complication E11.69 ; Hyperlipidemia, unspecified E78.5 ; Age-related osteoporosis without current pathological fracture M81.0 ; Gastroesophageal reflux disease without esophagitis K21.9 ; Former smoker Z87.891 and Other obesity E66.8 Assessments Encounter Date Diagnosis (ICD Code) Assessment Notes Treat ment Notes Treatment Clinical Notes 12/01/2023 Malignant neoplasm o f lower lobe of left lung (ICD-10 - C34.32) There is no sign of recurrent disease at this time. Incisions are healed and the pain is slowly resolving 12/01/2023 Essential hypertensi on (ICD-10 - I10) Her blood pressure is now 140/70 and no change in her regimen as necessary. 12/01/2023 Fibromyalgia (ICD-10 - M79.7) She has occasional low-grade abdominal discomfort. 12/01/2023 Type 2 diabetes mellitus with other specified complication (ICD-10 - E11.69) She will continue on current therapy. The fasting blood sugar is 94. 12/01/2023 Hyperlipidemia, unspecified (ICD-10 - E78.5) Her lipids are well controlled and she will continue on her current regimen. 12/01/2023 Age-related osteoporosis without current pathological fracture (ICD-10 - M81.0) She is asymptomatic at this time. 12/01/2023 Gastroesophageal reflux disease without esophagitis (ICD-10 - K21.9) She has occasional reflux, well-controlled medication and no other therapy is necessary at this time. 12/01/2023 Former smoker (ICD-1 0 - Z87.891) She seems highly motivated not to smoke and we discussed strategies for prevention of relapse in times of stress and illness. 12/01/2023 Other obesity (ICD-1 0 - E66.8) Her body mass index is 30. We have discussed her weight loss strategy. We discussed diet and nutrition. We made a plan to lose weight at a rate of one half of a pound per week. Plan Of Treatment Medication Medication Name Sig Start Date Stop Date Notes Claritin 10 MG 1 tablet Orally Once a day Omeprazole 20 MG 1 capsule 30 minutes before morning meal Orally Twice a day Benzonatate 100 MG TAKE 1 CAPSULE BY [facility] EVERY 8 HOURS NEEDED FOR COUGH Oral Albuterol Sulfate HFA 108 (9 0 Base) MCG/ACT 1 puff as needed Inhalation every 4 hrs Zoryve 0.3 % 1 application Entry Table Operator ally Once a day LORazepam 1 MG 1 1/2 tablet at bedt al as needed Oral Twice a day Azelastine-Fluticasone 137-5 0 MCG/ACT 1 spray in each nostril Nasally Twice a day Pravastatin Sodium 80 MG 1 tablet Orally Once a day Carvedilol 6.25 MG Orally Twice a day hydrALAZINE HCl 25 MG 1 tablet with food Orally twice a day Fluticasone Furoate 100 MCG/ACT 1 puff Inhalation Once a day Next Appt Details Follow Up: 4 Months, Reason: OV Provider Name:Fabrice Crain , 04/11/2025 10:00:00 AM, [address] [place] [address] [address], [place], [address], Progress Notes * JUVENTINO CANDELARIO:[birth year] (78 yo F)Acc No.[id number]:12/01/2023 Progress Notes Patient: TREY KOWALSKI Provider: Tory Crain MD :1945 A ge:78 Y S ex:Female Date:12/01/2023 Address:[address] [place], [place] [address], [id number] Pcp:Dannie Huang MD Subjective: * Chief Complaints: * N on-small cell carcinoma left lower lobeHypertensionDiabetesHyperlipidemiaOsteoporosis. * HPI: C OVID-19 Screening: She returns in follow-up of several medical problems. She has had a left thoracotomy for non-small cell lung cancer leaving her with a mild to moderate left mid thorax chest wall pain. Continues to have occasional coughing. She is taking no pain medications other than Tylenol. She sees for thoracic surgeon next April Her blood work was reviewed with her in detail. She is not smoking. She is trying to lose weight. Her heartburn is well controlled with medication. Her fasting glucose has been below 150. Questions H ave you experienced fever, chills, cough, sore throat, shortness of breath, difficulty breathing, muscle aches, loss of taste or smell? N o H ave you been exposed to the virus within the last 10 days? N o H ave you travelled internationally in the last 10 days? N o H ave you been exposed to COVID-19 in the past? N o * ROS: G eneral/Constitutional: pain L eft chest wall incision, otherwise only normal aches and pains. C hills d enies. F atigue a dmits. F ever d enies. ? E NT: Decreased hearing m ild. R espiratory: Cough d enies. C ardiovascular: Chest pain with exertion W ith exertion or lifting. D yspnea on exertion d enies. S hortness of breath d enies. G astrointestinal: Constipation o ccasional. D ecreased appetite d enies. D iarrhea d enies. H eartburn d enies. N ausea d enies. R ectal bleeding d enies. V omiting d enies. H ematology: bruising d enies. p etechiae d enies. S wollen glands n one have been noted. G enitourinary: Frequent urination a t night. M usculoskeletal: Muscle aches d enies. P ainful joints d enies. S ciatica d enies. W eakness d enies. S kin: Itching d enies. R kenyatta d enies. S kin lesion(s)?denies. N eurologic: Difficulty speaking d enies. D izziness d enies.?Headache d enies. L ow back pain d enies. P sychiatric: Depressed mood d enies. * Medical History: * Surgical History: T ubal ligation 1985choleycystectomy 2005Bladder suspention 1992colonoscopy, Dr. Blanchard 2013Lung surgery, Left lower lobe 04/07/2023 * Hospitalization/Major Diagno stic Procedure: D enies Past Hospitalization * Family History: F ather: 62 yrs, cad, mi, diagnosed with CVD. M other: 6 yrs, diabetes, diagnosed with DM. 3 son(s) , 1 daughter(s) . . Her mother was diabetic. Her daughter has rheumatoid arthritis. Her father had coronary artery disease and of a myocardial infarction. Her children are healthy and well. * Social History: T obacco Use: T obacco Use/Smoking P atient is a f ormer smoker H ow long has it been since you last smoked??> 10 years A dditional Findings: Tobacco Non-User E x-cigarette smoker S he lives at home with her and does not smoke or drink. She is not employed at the current time. * Medications: T akingZoryve 0.3 % Cream 1 application Externally Once a dayFluticasone Furoate 100 MCG/ACT Aerosol Powder Breath Activated 1 puff Inhalation Once a dayAzelastine-Fluticasone 137-50 MCG/ACT Suspension 1 spray in each nostril Nasally Twice a dayLORazepam 1 MG Tablet 1 1/2 tablet at bedtime as needed Oral Twice a dayCarvedilol 6.25 MG Tablet Orally Twice a dayPravastatin Sodium 80 MG Tablet 1 tablet Orally Once a dayhydrALAZINE HCl 25 MG Tablet 1 tablet with food Orally twice a dayOmeprazole 20 MG Capsule Delayed Release 1 capsule 30 minutes before morning meal Orally Twice a dayClaritin 10 MG Tablet 1 tablet Orally Once a dayAlbuterol Sulfate HFA 108 (90 Base) MCG/ACT Aerosol Solution 1 puff as needed Inhalation every 4 hrsBenzonatate 100 MG Capsule TAKE 1 CAPSULE BY MOUTH EVERY 8 HOURS NEEDED FOR COUGH Oral Medication List reviewed and reconciled with the patientTaking Zoryve 0.3 % Cream 1 application Externally Once a dayTaking Fluticasone Furoate 100 MCG/ACT Aerosol Powder Breath Activated 1 puff Inhalation Once a dayTaking Azelastine-Fluticasone 137-50 MCG/ACT Suspension 1 spray in each nostril Nasally Twice a dayTaking LORazepam 1 MG Tablet 1 1/2 tablet at bedtime as needed Oral Twice a dayTaking Carvedilol 6.25 MG Tablet Orally Twice a dayTaking Pravastatin Sodium 80 MG Tablet 1 tablet Orally Once a dayTaking hydrALAZINE HCl 25 MG Tablet 1 tablet with food Orally twice a dayTaking Omeprazole 20 MG Capsule Delayed Release 1 capsule 30 minutes before morning meal Orally Twice a dayTaking Claritin 10 MG Tablet 1 tablet Orally Once a dayTaking Albuterol Sulfate HFA 108 (90 Base) MCG/ACT Aerosol Solution 1 puff as needed Inhalation every 4 hrsTaking Benzonatate 100 MG Capsule TAKE 1 CAPSULE BY MOUTH EVERY 8 HOURS NEEDED FOR COUGH Oral Medication List reviewed and reconciled with the patient * Allergies: N iacinLactoseCortisone: elevated BP and Glucoseno[Allergies Verified] Objective: * Vitals: H t: 60, Wt:158, BMI:30.85, BP:137/66, HR:74, Temp:97.8, Ht-cm: 152.4, Wt-k.67. * P ast Orders: Lab:Lipid Panel * Order Date 11/13/2023 01/26/2022 01/22/2021 Triglycerides 165 H (Ref Range: <150 mg/dL) 165 (Ref Range: mg/dL) 264 (Ref Range: mg/dL) Cholesterol 181 (Ref Range: <200 mg/dL) 197 (Ref Range: mg/dL) 178 (Ref Range: mg/dL) LDL Cholesterol Calculated 93 (Ref Range: <100 mg/dL) 107 (Ref Range: mg/dl) 74 (Ref Range: mg/dl) HDL Cholesterol 55 (Ref Range: >40 mg/dL) 57 (Ref Range: mg/dL) 52 (Ref Range: mg/dL) * Lab:Comprehensive [place]. Eje l Fast * Order Date 11/13/2023 01/26/2022 01/22/2021 Sodium 143 (Ref Range: 135-145 mmol/L) 140 (Ref Range: 135-145 mmol/L) 139 (Ref Range: 135-145 mmol/L) Bilirubin Total 0.4 (Ref Range: 0.0-1.0 mg/dL) 0.5 (Ref Range: 0.0-1.0 mg/dL) 0.3 (Ref Range: 0.0-1.0 mg/dL) Aspartate Amino Transferase 23 (Ref Range: 5-31 U/L) 21 (Ref Range: 5-31 U/L) 23 (Ref Range: 5-31 U/L) Alanine Aminotransferase 22 (Ref Range: 0-31 U/L) 29 (Ref Range: 0-31 U/L) 31 (Ref Range: 0-31 U/L) Total Protein 7.5 (Ref Range: 6.5-8.0 g/dL) 7.6 (Ref Range: 6.5-8.0 g/dL) 7.2 (Ref Range: 6.5-8.0 g/dL) Albumin Level 4.2 (Ref Range: 3.5-5.0 g/dL) 4.2 (Ref Range: 3.5-5.0 g/dL) 4.1 (Ref Range: 3.5-5.0 g/dL) Alkaline Phosphatase 70 (Ref Range: 39-117 U/L) 82 (Ref Range: 39-117 U/L) 78 (Ref Range: 39-117 U/L) Potassium 4.1 (Ref Range: 3.3-5.1 mmol/L) 4.2 (Ref Range: 3.3-5.1 mmol/L) 4.2 (Ref Range: 3.3-5.1 mmol/L) Chloride 107 (Ref Range: 96-108 mmol/L) 105 (Ref Range: 96-108 mmol/L) 107 (Ref Range: 96-108 mmol/L) Carbon Dioxide 24 (Ref Range: 22-29 mmol/L) 24 (Ref Range: 22-29 mmol/L) 24 (Ref Range: 22-29 mmol/L) Anion Gap 16 (Ref Range: 12-20) 15 (Ref Range: 12-20) 12 (Ref Range: 12-20) Blood Urea Nitrogen 13 (Ref Range: 9-16 mg/dL) 13 (Ref Range: 9-16 mg/dL) 15 (Ref Range: 9-16 mg/dL) Creatinine 0.66 (Ref Range: 0.5-1.4 mg/dL) 0.66 (Ref Range: 0.5-1.4 mg/dL) 0.70 (Ref Range: 0.5-1.4 mg/dL) Estimated Glomerular Filt Rate > 60 > 60 > 60 Glucose Fasting 131 H (Ref Range: 60-99 mg/dL) 129 H (Ref Range: 60-99 mg/dL) 136 H (Ref Range: 60-99 mg/dL) Calcium 9.8 (Ref Range: 8.4-10.2 mg/dL) 9.4 (Ref Range: 8.4-10.2 mg/dL) 9.4 (Ref Range: 8.4-10.2 mg/dL) * Lab:Complete Blood Count Aut o Diff * Order Date 11/13/2023 11/29/2022 11/25/2022 White Blood Count 5.5 (Ref Range: 4.8-10.8 X10*3/uL) 5.5 (Ref Range: 4.8-10.8 X10*3/uL) 5.7 (Ref Range: 4.8-10.8 X10*3/uL) Red Blood Count 4.61 (Ref Range: 4.20-5.50 X10*6/uL) 4.50 (Ref Range: 4.20-5.50 X10*6/uL) 4.47 (Ref Range: 4.20-5.50 X10*6/uL) Hemoglobin 12.8 (Ref Range: 12.0-16.0 g/dl) 12.3 (Ref Range: 12.0-16.0 g/dl) 12.1 (Ref Range: 12.0-16.0 g/dl) Hematocrit 36.4 L (Ref Range: 37.0-47.0 %) 35.3 L (Ref Range: 37.0-47.0 %) 35.3 L (Ref Range: 37.0-47.0 %) Mean Corpuscular Volume 79.0 L (Ref Range: 80.0-98.0 fL) 78.4 L (Ref Range: 80.0-98.0 fL) 79.0 L (Ref Range: 80.0-98.0 fL) Mean Corpuscular Hemoglobin 27.8 (Ref Range: 27.0-33.0 pg) 27.3 (Ref Range: 27.0-33.0 pg) 27.1 (Ref Range: 27.0-33.0 pg) Mean Corpuscular HGB Conc 35.2 H (Ref Range: 31.0-35.0 g/dl) 34.8 (Ref Range: 31.0-35.0 g/dl) 34.3 (Ref Range: 31.0-35.0 g/dl) Red Cell Distribution Width 15.0 (Ref Range: 11.0-16.0 %) 14.4 (Ref Range: 11.0-16.0 %) 14.8 (Ref Range: 11.0-16.0 %) Platelet Count 266 (Ref Range: 160-400 X10*3/uL) 225 (Ref Range: 160-400 X10*3/uL) 234 (Ref Range: 160-400 X10*3/uL) Mean Platelet Volume 10.6 (Ref Range: 9.4-12.3 fL) 11.0 (Ref Range: 9.4-12.3 fL) 11.2 (Ref Range: 9.4-12.3 fL) Neutrophils Percent Auto 38.6 L (Ref Range: 45-73 %) 43.5 L (Ref Range: 45-73 %) 34.3 L (Ref Range: 45-73 %) Imm Gran Pct Auto 0.2 (Ref Range: 0.0-0.4 %) 0.2 (Ref Range: 0.0-0.4 %) 0.2 (Ref Range: 0.0-0.4 %) Lymphocytes Percent Auto 53.2 H (Ref Range: 20-40 %) 48.4 H (Ref Range: 20-40 %) 55.3 H (Ref Range: 20-40 %) Monocytes Percent Auto 6.2 (Ref Range: 2-11 %) 6.3 (Ref Range: 2-11 %) 8.1 (Ref Range: 2-11 %) Eosinophils Percent Auto 1.1 (Ref Range: 0-4 %) 1.1 (Ref Range: 0-4 %) 1.6 (Ref Range: 0-4 %) Basophils Percent Auto 0.7 (Ref Range: 0-2 %) 0.5 (Ref Range: 0-2 %) 0.5 (Ref Range: 0-2 %) NRBC Pct Auto 0.0 (Ref Range: 0.0-0.2 /100WBC) 0.0 (Ref Range: 0.0-0.2 /100WBC) 0.0 (Ref Range: 0.0-0.2 /100WBC) Neutrophils Absolute Auto 2.1 (Ref Range: 2.0-8.3 x10*3/uL) 2.4 (Ref Range: 2.0-8.3 x10*3/uL) 1.9 L (Ref Range: 2.0-8.3 x10*3/uL) Imm Gran Abs Auto 0.01 (Ref Range: 0.00-0.03 X10*3/uL) 0.01 (Ref Range: 0.00-0.03 X10*3/uL) 0.01 (Ref Range: 0.00-0.03 X10*3/uL) Lymphocytes Absolute Auto 2.9 (Ref Range: 1.2-4.9 X10*3/uL) 2.7 (Ref Range: 1.2-4.9 X10*3/uL) 3.1 (Ref Range: 1.2-4.9 X10*3/uL) Monocytes Absolute Auto 0.3 (Ref Range: 0.1-1.2 X10*3/uL) 0.4 (Ref Range: 0.1-1.2 X10*3/uL) 0.5 (Ref Range: 0.1-1.2 X10*3/uL) Eosinophils Absolute Auto 0.1 (Ref Range: 0.0-0.4 X10*3/uL) 0.1 (Ref Range: 0.0-0.4 X10*3/uL) 0.1 (Ref Range: 0.0-0.4 X10*3/uL) Basophils Absolute Auto 0.0 (Ref Range: 0.0-0.2 X10*3/uL) 0.0 (Ref Range: 0.0-0.2 X10*3/uL) 0.0 (Ref Range: 0.0-0.2 X10*3/uL) NRBC Abs Auto 0.000 (Ref Range: 0.0-0.012 X10*3/uL) 0.000 (Ref Range: 0.0-0.012 X10*3/uL) 0.000 (Ref Range: 0.0-0.012 X10*3/uL) * Examination: G eneral Examination: GENERAL APPEARANCE: p leasant, well nourished, well developed, in no acute distress, calm and relaxed , obese, elderly woman. HEAD: a traumatic, normocephalic. EYES: e iesha, perrla, anicteric, conjugate. EARS: n ormal. NOSE: s eptum intact. ORAL CAVITY: n ormal, unremarkable. NECK/THYROID: n o jugular venous distention, no carotid bruit, thyroid normal. LYMPH NODES: n o enlarged lymph nodes,spleen normal. SKIN: n o suspicious lesions, anicteric. HEART: n o clicks, gallops, murmurs, or rubs, regular rhythm, S1, S2 normal, no s3, or vascular bruits. LUNGS: c lear to auscultation, Left thoracic incisions well healed but painful to compression of chest wall. BREASTS: no masses palpable bilaterally. ABDOMEN: b owel sounds normal, no ascites, no organomegaly, no mass , centripital obesity. RECTAL EXAM: n ot examined. MUSCULOSKELETAL: e xtremities unremarkable, no clubbing, cyanosis or edema. PERIPHERAL PULSES: n ormal. NEUROLOGIC: a lert and oriented, cranial nerves 2-12 grossly intact, deep tendon reflexes 2+ symmetrical, motor strength normal upper and lower extremities, sensory exam intact. PSYCH: a lert, oriented. Assessment: * Assessment: 1. M alignant neoplasm of lower lobe of left lung - C34.32 (Primary), There is no sign of recurrent disease at this time. Incisions are healed and the pain is slowly resolving 2 . E ssential hypertension - I10, Her blood pressure is now 140/70 and no change in her regimen as necessary.?3. F ibromyalgia - M79.7, She has occasional low-grade abdominal discomfort. 4 . T ype 2 diabetes mellitus with other specified complication - E11.69, She will continue on current therapy. The fasting blood sugar is 94. 5 . H yperlipidemia, unspecified - E78.5, Her lipids are well controlled and she will continue on her current regimen. 6 . A ge-related osteoporosis without current pathological fracture - M81.0, She is asymptomatic at this time. 7 . G astroesophageal reflux disease without esophagitis - K21.9, She has occasional reflux, well-controlled medication and no other therapy is necessary at this time. 8 . F ormer smoker - Z87.891, She seems highly motivated not to smoke and we discussed strategies for prevention of relapse in times of stress and illness. 9 . O ther obesity - E66.8, Her body mass index is 30. We have discussed her weight loss strategy. We discussed diet and nutrition. We made a plan to lose weight at a rate of one half of a pound per week. Plan: * Treatment: * Procedure Codes: * Preventive Medicine: Counseling: C are goal follow-up plan: Counseling for abnormal BMI given Y es Above Normal BMI Follow-up D ietary management education, guidance, and counseling, Dietary needs education, Exercise promotion: strength training, Exercise promotion: stretching, Feeding regime, Giving encouragement to exercise, Lifestyle education regarding diet, Nutrition / feeding management, Nutrition therapy, Prescribed activity/exercise education, Prescribed diet education, Prescribed dietary intake, Special diet education, Weight monitoring , Intervention, Order not done: Medical or Other reason not done S moking/Tobacco Use Patient counseled on the dangers of tobacco use and urged to quit. 0 12/01/2023 DM Care Plan: P atient Lifestyle Goals P atient wants to be able to manage diabetes without too much effort. T reatment Goals B lood Sugars less than < 115, HbA1C < 7.0. B arriers n o barriers. S elf-Managment Goals W ork on weight loss, with a goal of losing 1 lb per week. * Follow Up: 4 Months (Reason: OV) * Images: * Sign off status: Completed true * Provider: Tory Crain MD Date: 0 12/01/2023 Generated for Bryan lee/Emily/eTransmitting on: 06/10/2024 12:58 PM EST History and Physical Notes * HPI (History of Present Illness) Category Sub-Category Detail Notes COVID-19 Screening Questions Have you had any new onset fever, chills, cough, congestion, sore throat, shortness of breath, muscle aches?: No Have you been exposed to the virus withi n the last 10 days?: No Have you travelled internationally in [facility] last 10 days?: No Have you been exposed to COVID-19 in the past?: No Examination Category Sub-Category Detail Notes General Examination GENERAL APPEARANCE: pleasant , well nourished, well developed, in no acute distress, calm and relaxed , obese, elderly woman HEAD: atraumatic, normocep halic EYES: eomi, perrla, anicte livier, conjugate EARS: normal NOSE: septum intact NECK/THYROID: no jugular venous di stention, no carotid bruit, thyroid normal HEART: no clicks, gallops, murmurs, or rubs, regular rhythm, S1, S2 normal, no s3, or vascular bruits LUNGS: clear to auscultatio n, Left thoracic incisions well healed but painful to compression of chest wall ABDOMEN: bowel sounds normal, no ascites, no organomegaly, no mass , centripital obesity NEUROLOGIC: alert and oriented, cranial nerves 2-12 grossly intact, deep tendon reflexes 2+ symmetrical, motor strength normal upper and lower extremities, sensory exam intact SKIN: no suspicious lesion s, anicteric PERIPHERAL PULSES: normal BREASTS: no masses palpable b ilaterally MUSCULOSKELETAL: extremities unremark able, no clubbing, cyanosis or edema LYMPH NODES: no enlarged lymph no [place],spleen normal RECTAL EXAM: not examined PSYCH: alert, oriented ORAL CAVITY: normal, unremarkable
--- OUTSIDE RECORDS SUMMARY | 2023-12-18 05:00 | XMS_ITS ---
Author Organization [facility] Address [address] [place] [address] Care Team Providers Care Cobol Mainframe Developer Name Role Phone Karin Nelson Primary Care Provider Malik Albert Unavailable [phone] Param Arora Unavailable [phone] Encounters Encounter Location Date Provider Diagnosis [address] [address] 12/18/2023 Param Arora Plan Of Treatment Next Appt Details Provider Name:Malik Clements , 05/09/2025 12:15:00 PM, [address] [place], [address], Progress Notes * Ahsan CANDELARIOB:[birth year] (80 yo F)Acc No.[id number]:12/18/2023 Progress Note Patient: Julienne KOWALSKI Provider: Sid Syed DPM :1945 A ge:78 Y S ex:Female Date:12/18/2023 Address:[address] [place], [place] [id number] Pcp:Karin Nelson Subjective: * Chief Complaints: * * Medical History: Objective: * Vitals: Assessment: Plan: * Treatment: * Images: * The named appointment provid er may or may not be the originator of this progress note, and it is not deemed complete until electronically signed by the appointment provider. Sign off status: Pending * Provider: Sid Syed DPM Date: 0 12/18/2023 Generated for Bryan lee/Emily/Sher on: 1 06/10/2024 12:59 PM EST
--- OUTSIDE RECORDS SUMMARY | 2024-01-04 07:15 | XMS_ITS ---
Author Organization [facility] Address [address] [place] [address] Care Team Providers Care District Branch Manager Name Role Phone Karin [place] Primary Care Provider Malik Albert Unavailable [phone] Param Arora Unavailable [phone] REASON FOR VISIT sooner appt Encounters Encounter Location Date Provider Diagnosis [address] [address] 01/04/2024 Param Arora Plan Of Treatment Next Appt Details Provider Name:Malik Clements , 05/09/2025 12:15:00 PM, [address] [place], [address], Progress Notes * Jesse CANDELARIOHaiB:[birth year] (80 yo F)Acc No.[id number]:01/04/2024 Progress Note Patient: Julienne KOWALSKI Provider: Sid Syed DPM :1945 A ge:78 Y S ex:Female Date:01/04/2024 Address:[address] [place] [address] Pcp:Karin [place] Subjective: * Chief Complaints: * 1 . Sooner appt. * Medical History: Objective: * Vitals: Assessment: Plan: * Treatment: * Images: * The named appointment provid er may or may not be the originator of this progress note, and it is not deemed complete until electronically signed by the appointment provider. Sign off status: Pending * Provider: Sid Syed DPM Date: 0 01/04/2024 Generated for Bryan lee/Emily/Sher on: 1 06/10/2024 12:58 PM EST
--- OUTSIDE RECORDS SUMMARY | 2024-04-05 06:00 | XMS_ITS ---
Author Organization Fabrice Crain III, MD Address [address] [address] Care Team Providers Care Defense Travel Administrator Name Role Phone Dannie Huang MD Primary Care Provider Dr. 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 Vital Signs Temperature 97.4 degrees Fahrenheit 04/05/20 24 Blood pressure systolic 138 mm Hg 04/05/20 24 Blood pressure diastolic 77 mm Hg 024 Heart Rate 79 /min 04/05/2024 Height 60 in 04/05/2024 Weight 161 lbs 04/05/2024 BMI 31.44 kg/m2 04/05/2024 Encounters Encounter Location Date Provider Diagnosis Fabrice Crain III, MD [address] [place] [address] [place] [address] 04/05/2024 Fabrice Crain Malignant neoplasm o f [...] a day Zoryve 0.3 % 1 application Tornado Chaser ally Once a day Benzonatate 100 MG TAKE 1 CAPSULE BY [facility] EVERY 8 HOURS NEEDED FOR COUGH [...] OV, Routine check-up Provider Name:Fabrice Crain , 04/11/2025 10:00:00 AM, [address] [place] [address], [address], Progress Notes * GEMMA CANDELARIOB:[birth year] (79 yo F)Acc No.[id number]:04/05/2024 Progress Notes Patient: TREY KOWALSKI Provider: Tory Crain MD :1945 A ge:79 Y S ex:Female Date:04/05/2024 Address:[address] [place] [address] [id number] Pcp:Dannie Huang MD Subjective: * Chief Complaints: [...] Date: 06/05/2023 Generated for Bryan lee/Emily/eTransmitting on: 06/10/2024 12:59 PM EST History and Physical Notes * HPI (History of Present Illness) Category Sub-Category Detail Notes COVID-19 Screening Questions Have you had any new onset fever, chills, cough, congestion, sore throat, shortness of breath, muscle aches?: No Have you been exposed to the virus withi n the last 10 days?: No Have you travelled internationally in [facility] last 10 days?: No Have you been exposed to COVID-19 in the past?: No Examination Category Sub-Category Detail Notes General Examination GENERAL APPEARANCE: pleasant , well nourished, well developed, in no acute distress, calm and relaxed, obese, elderly woman HEAD: atraumatic, normocep halic EYES: eomi, perrla, anicte ilvier, conjugate EARS: normal NOSE: septum intact NECK/THYROID: [...]
--- OUTSIDE RECORDS SUMMARY | 2024-09-26 10:45 | XMS_ITS ---
Author Organization [facility] Address [address] [facility] [place] [address] Care Team Providers Care Feed Research Technician Name Role Phone OmarJessica castroah Primary Care Provider Malik Albert Unavailable [phone] Radha Weir Unavailable [phone] Allergies Allergen (clinical drug ingredient) Drug/Non Drug Allergy documented on EMR Reaction Allergy Type Onset Date Status niacin Niacin rash Drug Allergy Active Cortisone elevated BP/ elevated BS Drug Allergy Active Medications Medication SIG (Take, Route, Frequency, Duration) Notes Start Date End Date Status Gabapentin Not-Takin g Tums Not-Taking Mylanta Not-Taking vitamin Not-Taking PriLOSEC 20 MG Orally 2 Not-T aking Calcium Not-Taking Lisinopril Not-Takin g Losartan Potassium 25 MG Orally Not-Taking Zantac bid Not-Taking Vitamin D Not-Taking Montelukast Sodium N ot-Taking Valsartan Not-Taking Famotidine Not-Takin g Rhinocort Allergy 32 MCG/ACT 1 spray in each nostril Nasally Once a day Not-Taking Claritin Not-Taking Work Note . . . patient is disabled from work until December 15 2018 Not-Taking Voltaren 1 % as directed Externally Not-Taking Physical Therapy . . . 2-3x/week; Duration: 3-4 weeks 03/14/2019 Not-Taking Voltaren 1 % as directed Externally apply bid to left ankle; Duration: 30 days Not-Taking Extra Depth Diabetic Shoes with 3 Pair Custom heat-molded multi-density innersoles for 1 year Dx: 10/28/2020 Not-Taking Night Splint AFO - L1930 as directed Not-Taking Delsym Not-Taking prednisoLONE Not-Russell ing Clobetasol Emul Foam w/MoistCr Not-Taking Antibiotic 7 day Not-Takin g Carvedilol 6.25 MG 1 tablet with food Orally Twice a day Active Hyoscyamine Sulfate 25mg 2x a day Active Benzonatate 100 MG 1 capsule as needed Orally Three times a day Active Advair HFA Active ZyrTEC Not-Taking Multivitamin Active Extra Depth Diabetic Shoes with 3 Pair Custom heat-molded multi-density innersoles for 1 year Dx: Active Omeprazole 10 MG 1 capsule Orally twice a day Active Pravastatin Sodium A ctive LORazepam 1mg 1 during the day 1/2 at night Active Azelastine-Fluticason e PRN Active Tylenol 2 every 8 hour Activ e Albuterol Sulfate HFA PRN Active Kecia Active Extra Depth Diabetic Shoes with 3 Pair Custom heat-molded multi-density innersoles for 1 year Dx: Active Tussin Active Encounters Encounter Location Date Provider Diagnosis [facility] [address] [address] 09/26/2024 Radha Weir Plan Of Treatment Next Appt Details Provider Name:Malik Clements , 05/09/2025 12:15:00 PM, [address] [place] [address], [phone], Progress Notes * Ahsan CANDELARIOB:[birth year] (80 yo F)Acc No.[id number]:09/26/2024 Progress Note Patient: Julienne KOWALSKI Provider: Mikel Weir DPM :1945 A ge:79 Y S ex:Female Date:09/26/2024 Address:[address] [place], [place] [id number] Pcp:Karin Nelson Subjective: * Chief Complaints: * * Medical History: O steoporosis, Hypertension, Fibromyalgia, Diabetic type 2, Hiatal hernia, Asthma-variant, sinusitis. * Medications: T aking Tussin , Taking Kecia , Taking Extra Depth Diabetic Shoes with 3 Pair Custom heat-molded multi-density innersoles for 1 year Dx: , Taking Tylenol , Notes to Pharmacist: 2 every 8 hour, Taking Albuterol Sulfate HFA , Notes to Pharmacist: PRN, Taking Azelastine-Fluticasone , Notes to Pharmacist: PRN, Taking LORazepam 1mg , Notes to Pharmacist: 1 during the day 1/2 at night, Taking Omeprazole 10 MG Capsule Delayed Release 1 capsule Orally twice a day , Taking Pravastatin Sodium , Taking Multivitamin , Taking Extra Depth Diabetic Shoes with 3 Pair Custom heat-molded multi-density innersoles for 1 year Dx: , Taking Benzonatate 100 MG Capsule 1 capsule as needed Orally Three times a day , Taking Advair HFA , Taking Carvedilol 6.25 MG Tablet 1 tablet with food Orally Twice a day , Taking Hyoscyamine Sulfate , Notes to Pharmacist: 25mg 2x a day, Not-Taking/PRN ZyrTEC , Not-Taking/PRN Clobetasol Emul Foam w/MoistCr , Not-Taking/PRN Antibiotic , Notes to Pharmacist: 7 day, Not-Taking/PRN Delsym , Not-Taking/PRN prednisoLONE , Not-Taking/PRN Night Splint AFO - L1930 as directed , Not-Taking/PRN Voltaren 1 % Gel as directed Externally apply bid to left ankle , Not-Taking/PRN Voltaren 1 % Gel as directed Externally , Not-Taking/PRN Physical Therapy . . . . 2-3x/week , Not-Taking/PRN Work Note . . . . patient is disabled from work until December 15 2018 , Not-Taking/PRN Extra Depth Diabetic Shoes with 3 Pair Custom heat-molded multi-density innersoles for 1 year Dx: , Not-Taking/PRN Claritin , Not-Taking/PRN Famotidine , Not-Taking/PRN Rhinocort Allergy 32 MCG/ACT Suspension 1 spray in each nostril Nasally Once a day , Not-Taking/PRN Montelukast Sodium , Not-Taking/PRN Valsartan , Not-Taking/PRN Losartan Potassium 25 MG Tablet Orally , Not-Taking/PRN Zantac bid , Not- Taking/PRN Calcium , Not-Taking/PRN Lisinopril , Not-Taking/PRN Vitamin D , Not-Taking/PRN vitamin , Not-Taking/PRN PriLOSEC 20 MG Capsule Delayed Release Orally 2 , Not-Taking/PRN Tums , Not-Taking/PRN Mylanta , Not-Taking/PRN Gabapentin * Allergies: N iacin: rash, Cortisone: elevated BP/ elevated BS. Objective: * Vitals: Assessment: Plan: * Treatment: * Images: * The named appointment provid er may or may not be the originator of this progress note, and it is not deemed complete until electronically signed by the appointment provider. Sign off status: Pending * Provider: Mikel Weir DPM Date: 0 09/26/2024 Generated for Bryan lee/Emily/Reneaitting on: 06/10/2024 12:59 PM EST
--- OUTSIDE RECORDS SUMMARY | 2024-10-04 06:00 | XMS_ITS ---
Author Organization Fabrice Crain III, MD Address [address] [facility] [place] [address] Care Team Providers Care Prover Name Role Phone Dannie Huang MD Primary [...] Benzonatate 100 MG TAKE 1 CAPSULE BY [facility] EVERY 8 HOURS NEEDED [...] day Active Zoryve 0.3 % 1 application Corn Chip Maker ally Once a day Active Social History [...] Problem Status W/U Status Risk Notes Problem [id number] Malignant neoplasm of lower lobe of left lung (C34.32) Active confirmed There is no sign of recurrent disease at this time. Incisions are healed and the pain is slowly resolving. She has been scheduled for a followup CT scan of the chest by her thoracic surgeon next month. Vital Signs Temperature 98.1 degrees Fahrenheit 10/05/19 25 Blood pressure systolic 140 mm Hg 10/05/19 25 Blood pressure diastolic 78 mm Hg 025 Heart Rate 76 /min 10/04/2024 Height 60 in 10/04/2024 Weight 157 lbs 10/04/2024 BMI 30.66 kg/m2 10/04/2024 Encounters Encounter Location Date Provider Diagnosis Fabrice Crain III, MD [address] [place] [address] [place] [address] 10/04/2024 Fabrice Crain Malignant neoplasm o f [...] Benzonatate 100 MG TAKE 1 CAPSULE BY [facility] EVERY 8 HOURS NEEDED [...] a day Zoryve 0.3 % 1 application Corn Chip Maker ally Once a day Next Appt Details Follow Up: 6 Months, Reason: ov Provider Name:Fabrice Sheets Paras , 04/11/2025 10:00:00 AM, [address] [place] [address] DR [place], [place], [address], Progress Notes * JUVENTINO CANDELARIO:[birth year] (79 yo F)Acc No.[id number]:10/04/2024 Progress Notes Patient: TREY KOWALSKI Provider: Tory Crain MD :1945 A ge:79 Y S ex:Female Date:10/04/2024 Address:[address] [place], [place] [id number] Pcp:Dannie Huang MD Subjective: * Chief Complaints: [...] June and moved innto an apartment in [place] near her workplace. On October 08, 2024. Her thoracic surgeon, Dr. Cheng, has ordered a CT scan of her chest for surveillance purposes. She has a new primary care physician, Dr. Fuentes, at [facility], who has put her on sertraline [...] asymptomatic at this time. 7 . F ormer smoker - Z87.891 N [...] MD Date: 0 10/04/2024 Generated for Bryan lee/Emily/Reneaitting on: 1 06/10/2024 01:00 PM EST History and Physical [...]
--- NOTE | 2025-04-10 10:49 | MHC.OFFVIS ---
Intake Visit Reasons: TIA - seen in ER Allergies niacin (Niacin) Allergy (Mild, Verified 04/04/25 08:21) RASH lactose (Lactose) Adverse Reaction (Mild, Verified 04/04/25 08:21) DIARRHEA atorvastatin (Lipitor) Adverse Reaction (Unknown, Verified 04/04/25 08:21) Unknown celecoxib (Celebrex) Adverse Reaction (Unknown, Verified 04/04/25 08:21) Unknown simvastatin Adverse Reaction (Unknown, Verified 04/04/25 08:21) Unknown HPI Comments Details: 79 years old woman with uncontrolled hypertension somewhat depressed and previous history of migraine type of headaches including ocular migraines presented with an episode of headache, few minutes of right eye loss of vision followed by flashes of lights similar to what she used to see with a migraine type of episode. She is presenting with daily headaches that have recently improved. She reported initial daily episodes of headaches managed with Tylenol, requiring doses of 325 mg or occasionally 1500 mg. The patient noted improvement in frequency and severity of the headaches over time. After hospitalization, where her symptoms were assessed and attributed to migraine rather than a transient ischemic attack (TIA), she was prescribed Lisinopril 2.5 mg alongside her current regimen of Carvedilol. Metformin 500 mg daily was added due to newly addressed glycemic control. The patient's MRI revealed changes consistent with hypertension, for which aspirin therapy was introduced. The past year has been emotionally difficult following her 's from Parkinson?s disease. The stress and grief are presumed to have affected her overall health status. A history of Lorazepam use for stress was noted, with a current weaning plan in place to discontinue this medication completely. [facility] Medical History (Updated 04/10/25 @ 10:55 by Maximiliano Mathias MD) Headache Insomnia Peptic ulcer Lung cancer Psoriasis Type 2 diabetes mellitus GERD (gastroesophageal reflux disease) Osteopenia Pulmonary nodule Depression Fibromyalgia IBS (irritable bowel syndrome) High cholesterol HTN (hypertension) Chronic cough Allergic rhinitis Cough due to bronchospasm Surgical History Hx of bladder repair surgery S/P lobectomy of lung History of tubal ligation History of esophagogastroduodenoscopy (EGD) History of laparoscopic cholecystectomy History of colonoscopy (~10/27/23) Family History (Updated 04/04/25 @ 09:57 by Jennifer Mohr MA) Father Myocardial infarction Mother Diabetic coma Sister No problems noted. 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 - Cardiovascular: Reports past hospitalization for blood pressure control. - Endocrine: Reports new initiation of Metformin for type 2 diabetes. - Psychiatric: Reports stress and grief following the 's ; history of Lorazepam use reduced recently. Physical Exam Neuro Other: Mental Status: Alert and oriented to person, place, and time. Normal attention. Normal spontaneous speech, fluency, and comprehension. Cranial Nerves: CN II: Visual galeana full to confrontation, visual acuity intact. CN III, IV, : Pupils equal, round, reactive to light and accommodation. Extraocular movements are normal. CN V: Facial sensation is normal. CN VII: Facial movements symmetrical. CN VIII: Hearing intact to bedside conversation is normal. CN IX, X: Palate elevates symmetrically. CN XI: Shoulder shrug and head turn symmetrical. CN XII: Tongue midline without atrophy or fasciculations. Coordination: Uhtyjx-dh-azxs and knbs-qp-avgi testing normal. No dysmetria. Gait and Station: No obvious gait abnormality. No ataxia or instability. Extrapyramidal: Full facial expressions and blinking. No rigidity. Movements are appropriate with no tremor or abnormality. Speech: Normal; no dysarthria or tremor. Assessment & Plan Assessment & Plan (1) Migraine: Code(s): G43.909 - Migraine, unspecified, not intractable, without status migrainosus Category: Medical Qualifiers: Migraine type: without aura Status migrainosus presence: without status migrainosus Intractability: not intractable Qualified Code(s): G43.009 - Migraine without aura, not intractable, without status migrainosus (2) Ocular migraine: Code(s): G43.109 - Migraine with aura, not intractable, without status migrainosus Category: Medical (3) Cerebral microvascular disease: Comment: MRI brain WO at [facility] in Feb 2025: Mild MVD CTA brain and neck at [facility] in Feb 2025: Atherosclerotic disease, no sig stenosis Code(s): I67.89 - Other cerebrovascular disease Category: Medical Plan Impression: a: Migraine b: Ocular migraine c: HTN related cerebral microvascular disease d: Mild depression Rec: Education Baby aspirin PRN treatment for migraine Coding Level of Care Code Est Pt Level 5 (39687) Diagnoses Migraine without aura and without status migrainosus, not intractable G43.009 Migraine type: without aura Status migrainosus presence: without status migrainosus Intractability: not intractable Ocular migraine G43.109 Cerebral microvascular disease I67.89
--- OUTSIDE RECORDS SUMMARY | 2025-04-10 12:59 | XMS_ITS | Patient Health Record ---
Author Organization Fabrice Crain III, MD Address [address] [place] [address] Care Team Providers Care Home Health Registered Nurse Name Role Phone Dannie Huang MD Primary [...] day Active Zoryve 0.3 % 1 application Wooden Tank Erector ally Once a day Active Benzonatate 100 [...] 1 MG 1 1/2 tablet at bedt la as needed Oral Twice a day Active [...] Problem Status W/U Status Risk Notes Problem 3859687 Former smoker (Z87.891) Active confirmed She seems highly motivated not to smoke and we discussed strategies for prevention of relapse in times of stress and illness. Problem 895193044 Fibromyalgia (M79.7) Active confirmed She has occasional low-grade abdominal discomfort. Problem 318751766546 Type 2 diabetes mellitus with other specified complication (E11.69) Active confirmed She will continue on current therapy. Her fasting glucose levels have been under 150. She has been compliant with her medication. Problem 978935739 Other obesity (E66.8) Active confirmed Her body mass index is 30. We have discussed her weight loss strategy. We discussed diet and nutrition. We made a plan to lose weight at a rate of one half of a pound per week. Problem 79747504 Hyperlipidemia, unspecified (E78.5) Active confirmed Her lipids are well controlled and she will continue on her current regimen. Problem 69444116 Age-related osteoporosis without current pathological fracture (M81.0) Active confirmed She is asymptomatic at this time. Problem 03039558 Essential hypertension (I10) Active confirmed Her blood pressure is controlled and no change in her regimen as necessary. Problem 954353204 Gastroesophageal reflux disease without esophagitis (K21.9) Active confirmed She has occasional reflux, well-controll ed medication and no other therapy is necessary at this time. Problem Anemia (564296284) Anemia, unspecified type (D64.9) Active confirmed She has a mild microcytic anemia with a ferritin over 100. The microcytosis is new. She'll be followed carefully. It does not require treatment at this time. Problem 777662370 Malignant neopla sm of lower lobe of left lung (C34.32) Active confirmed There is no sign of recurrent disease at this time. Incisions are healed and the pain is slowly resolving. She has been scheduled for a followup CT scan of the chest by her thoracic surgeon next month. 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 Vital Signs Heart Rate 76 /min 10/04/2024 Temperature 98.1 degrees Fahrenheit 10/04/2024 Blood pressure diastolic 78 mm Hg 10/04/2024 Height 60 in 10/04/2024 Blood pressure systolic 140 mm Hg 10/04/2024 Weight 157 lbs 10/04/2024 BMI 30.66 kg/m2 10/04/2024 Encounters Encounter Location Date Provider Diagnosis Fabrice Crain III, MD [address] [place] [address] [place] [address] 10/04/2024 Fabrice Crain Malignant neoplasm o f [...] Notes Treatment Notes Treatment Clinical Notes 10/04/2024 Essential hypertension (ICD-10 - I10) Her blood pressure is controlled and no change in her regimen as necessary. 10/04/2024 Malignant neoplasm of lower lobe of left lung (ICD-10 - C34.32) There is no sign of recurrent disease at this time. Incisions are healed and the pain is slowly resolving. She has been scheduled for a followup CT scan of the chest by her thoracic surgeon next month. 10/04/2024 Fibromyalgia (ICD-10 - M79.7) She has [...] con 10/11/2023 Next Appt Details Provider Name:Fabrice Palominone , 04/11/2025 10:00:00 AM, [address] [place] [address] , [facility] [place], [place], [address], Insurance Providers Payer Name Payer Address Payer Phone Subscriber Number Group Number Insured Name Patient Relationship to Insured Coverage Start Date Coverage End Date MEDICARE NGS [address] [facility] [place] [address] [id number] TREY TEE Self - patient is the insured [address] [facility] [place], [place] [phone] [id number] TREY TEE Self - patient is the insured Medical (General) History Medical History History ICD Code Essential hypertension I10 Fibromyalgia M79.7 hiatal hernia hyperlipidemia osteoarthritis diabetes mellitus essential hypertension osteoporosis GERD overweight former smoker Stage I adenocarcinoma of th e lung, Left lower lobe, April 2023, [facility] Surgical History Surgery Date(Month/Year) Lung surgery, Left lower lobe 04/07/2023 colonoscopy, Dr. Blanchard 2013 Bladder suspention 1992 choleycystectomy 2005 Tubal ligation 1985 Hospitalization History Reason Date(Month/Year) Hospitalization for ' s parkinson's, alzheimer's, and dementia - september, current year
--- OUTSIDE RECORDS SUMMARY | 2025-04-10 12:59 | XMS_ITS | Patient Health Record ---
Author Organization [facility] Address [address] [place] [address] Care Team Providers Care Writer Producer Name Role Phone Sal (RETIRED) Dannie SHIELDS Primary Care Provide r Unavailable Fabrice Blanchard Unavailable [phone] Allergies Allergen (clinical drug ingredient) Drug/Non Drug [...] Notes Problem Gastro-esophageal reflux disease without esophagitis (379727538) Gastro-esophageal reflux disease without esophagitis (K21.9) Active confirmed Problem Screening for malignant neoplasm of colon (852255675) Encounter for screening for malignant neoplasm of colon (Z12.11) Active confirmed Problem History of adenomatous polyp of colon (901368024) History of adenomatous polyp of colon (Z86.010) Active confirmed Problem Diverticular disease of colon (664401378) Diverticulosis of large intestine without perforation or abscess without bleeding (K57.30) Active confirmed Problem Generalized abdominal pain (973980586) Generalized abdominal pain (R10.84) Active confirmed Problem Gastroesophageal reflux disease (069890274) Gastroesophageal reflux disease, esophagitis presence not specified (K21.9) Active confirmed Problem Irritable bowel syndrome (57501325) Irritable bowel syndrome with both constipation and diarrhea (K58.2) Active confirmed Problem Chronic cough (13862615) Chronic cough (R05.3) Active confirmed Plan Of [...] Date MEDICARE OF [place] [address] [place], [place] [id number] [phone] [id number] TREY TEE Self - patient is the insured [facility] [address] [place] [address] [id number] TREY TEE Self - patient is the insured Medical (General) History Medical History History ICD Code Irritable bowel syndrome ? hx of ulcer disease in the Colonoscopy 3-40-1315-negati ve except diverticulosis and internal hemorrhoids Colon polyps-tubular adenomas removed in 2001 and 2004 GERD--EGD in 1994 neg-Bx neg for H.pylor i NIDDM fibromyalgia hyperlipidemia hypertension Denies [place],CVA,Lung disease,renal disease EGD in 10/2012--neg except for a small HH --no celiac disease, no H.pylori Colonoscopy 08/2013 and in --negative except for sigmoid diverticulosis and internal hemorrhoids Lung cancer with surgery as below in 2022 Surgical History Surgery Date(Month/Year) bladder suspension 1992 cholecystectomy 2003 tubal ligation 1985 LLL lung resection for cancer-Dr. Shaffer at [facility] 04/07/2023
--- OUTSIDE RECORDS SUMMARY | 2025-04-10 13:00 | XMS_ITS | Patient Health Record ---
Author Organization [facility] Address [address] [place] [address] Care Team Providers Care Social Worker Palliative Care Name Role Phone Omar, Karin Primary Care Provider Malik Albert Unavailable [phone] Radha Weir Unavailable [phone] Allergies Allergen (clinical drug ingredient) Drug/Non Drug [...] Problem Acquired hammer toe of right foot (9647587252151482 ) Other hammer toe(s) (acquired), right foot (M20.41) Active confirmed Problem Acquired hammer toe of left foot (5445861982453767 ) Other hammer toe(s) (acquired), left foot (M20.42) Active confirmed Problem Polyneuropathy due to type 2 diabetes mellitus (055799611) Type 2 diabetes mellitus with diabetic polyneuropathy (E11.42) Active confirmed Vital Signs Blood pressure diastolic 65 mm Hg 01/10/2025 Height 5 ft 4 in in 01/10/2025 Blood pressure systolic 120 mm Hg 01/10/2025 Weight 157 lbs 01/10/2025 BMI 26.95 kg/m2 01/10/2025 Procedures Procedure Date Ordered Date Performed Result Body Sit e 00599-MZCSDHE NAIL, 6 OR MORE 06/03/2024 N/A 73351-NGDU SKIN LESIONS, OVER 4 06/03/2024 N/A 82962-IPSEGHV NAIL, 6 OR MORE 10/08/2024 N/A 30533-YXVI SKIN LESIONS, OVER 4 10/08/2024 N/A 58862-DMFFUNV NAIL, 6 OR MORE 01/10/2025 N/A 72982-ERAM SKIN LESIONS, OVER 4 01/10/2025 N/A Encounters Encounter Location Date Provider Diagnosis [address] [address] 06/03/2024 Radha Weir Type 2 diabetes mellitus with diabetic polyneuropathy E11.42 and Tinea unguium B35.[address] [address] 10/08/2024 Malikguillermina MorejonStarr Type 2 diabetes mellitus with diabetic polyneuropathy E11.42 ; Tinea unguium B35.1 ; Other hammer toe(s) (acquired), right foot M20.41 and Other hammer toe(s) (acquired), left foot M20.[address] [address] 01/10/2025 Malikguillermina MorejonStarr Type 2 diabetes mellitus with diabetic polyneuropathy E11.42 and Tinea unguium B35.[address] [address] 09/24/2024 Radha Weir Assessments Encounter Date Diagnosis [...] X ray : Ankle, left 3V 11/15/2018 93874-XRTILWM NAIL, 6 OR MORE 05/17/2018 87230-WQDCLFI NAIL, 6 OR MORE 06/03/2024 06506-QTVDDQP NAIL, 6 OR MORE 10/08/2024 47170-ESIRGJF NAIL, 6 OR MORE 01/10/2025 16792-QOUUTCX NAIL, 6 OR MORE 02/23/2011 84641-XSVFXFS NAIL, 6 OR MORE 05/11/2011 74444-FZPBODV NAIL, 6 OR MORE 07/20/2011 05873-GRKOFAQ NAIL, 6 OR MORE 10/03/2011 03649-QABVCJE NAIL, 6 OR MORE 12/12/2011 92142-VSMSHOO NAIL, 6 OR MORE 02/22/2012 91085-UWDAFLD NAIL, 6 OR MORE 05/09/2012 98855-LDFPYEN NAIL, 6 OR MORE 08/08/2012 77856-DKEPBSY NAIL, 6 OR MORE 11/08/2012 25758-BTLKSDL NAIL, 6 OR MORE 01/30/2013 55404-UTGKRHR NAIL, 6 OR MORE 04/24/2013 12401-KRAPHAK NAIL, 6 OR MORE 07/03/2013 64984-BEJJLHL NAIL, 6 OR MORE 09/16/2013 35667-KQRMTVA NAIL, 6 OR MORE 12/23/2013 03541-TMQKAET NAIL, 6 OR MORE 03/27/2014 78464-PTCZOKN NAIL, 6 OR MORE 06/09/2014 81340-GPMFTBW NAIL, 6 OR MORE 08/18/2014 32448-GUBTTKQ NAIL, 6 OR MORE 10/29/2014 20183-EJBPWUS NAIL, 6 OR MORE 01/12/2015 45873-JJXQGAR NAIL, 6 OR MORE 04/13/2015 00414-GGUHQTR NAIL, 6 OR MORE 06/29/2015 83356-SAPPQUB NAIL, 6 OR MORE 09/14/2015 26542-PDCGNMQ NAIL, 6 OR MORE 12/17/2015 37141-UJLTKJG NAIL, 6 OR MORE 03/17/2016 41104-MANRSBE NAIL, 6 OR MORE 06/16/2016 83716-IPTMQAT NAIL, 6 OR MORE 08/18/2016 16839-YAVUDUK NAIL, 6 OR MORE 11/16/2016 87199-XUESGWI NAIL, 6 OR MORE 02/16/2017 07480-VEYSCBC NAIL, 6 OR MORE 05/18/2017 80993-ELGJDMK NAIL, 6 OR MORE 08/17/2017 24440-NRHCLMJ NAIL, 6 OR MORE 11/16/2017 51460-YOUCETW NAIL, 6 OR MORE 02/15/2018 64067-Vlteowje Plate 05/18/2017 64360-Ohsqxrep Plate 10/29/2014 37884-Sddwzyln Plate 08/18/2014 12427-Angwjtuq Plate 06/09/2014 23733-Qzbsfyoi Plate 03/27/2014 36000-CJWU SKIN LESIONS, OVER 4 01/11/20 25 68920-IPWA SKIN LESIONS, OVER 4 10/09/19 25 92492-SIYQ SKIN LESIONS, OVER 4 06/03/20 24 33753-YSOQ SKIN LESIONS, OVER 4 08/17/19 19 18532-JHNS SKIN LESIONS, OVER 4 11/16/19 19 65872-JHSG SKIN LESIONS, OVER 4 03/14/20 19 55890-PUVG SKIN LESIONS, OVER 4 06/17/19 20 32719-SGSQ SKIN LESIONS, OVER 4 10/17/19 20 66456-XJRW SKIN LESIONS, OVER 4 01/22/20 20 49909-UBTG SKIN LESIONS, OVER 4 04/22/20 20 58922-XITZ SKIN LESIONS, OVER 4 07/29/19 21 37924-HHJK SKIN LESIONS, OVER 4 10/29/19 21 87061-FCNY SKIN LESIONS, OVER 4 01/28/20 21 52172-PEGP SKIN LESIONS, OVER 4 11/24/20 21 47298-HZAG SKIN LESIONS, OVER 4 08/05/19 22 39643-RRIY SKIN LESIONS, OVER 4 06/09/19 15 76447-UKNH SKIN LESIONS, OVER 4 03/27/20 14 02355-ZRVB SKIN LESIONS, OVER 4 12/24/19 14 05961-ACOK SKIN LESIONS, OVER 4 09/17/19 14 55639-OFQP SKIN LESIONS, OVER 4 07/03/19 14 05596-KBUZ SKIN LESIONS, OVER 4 04/24/20 13 58366-RFYW SKIN LESIONS, OVER 4 01/31/20 13 24623-BHDW SKIN LESIONS, OVER 4 11/09/19 13 72635-LRPU SKIN LESIONS, OVER 4 08/09/19 13 39081-WMKL SKIN LESIONS, OVER 4 05/09/20 12 04665-JZYX SKIN LESIONS, OVER 4 02/22/20 12 22618-RZTK SKIN LESIONS, OVER 4 12/12/19 12 90526-OQJL SKIN LESIONS, OVER 4 10/03/19 12 44416-JBLL SKIN LESIONS, OVER 4 07/20/19 12 19969-GVBT SKIN LESIONS, OVER 4 05/11/20 11 21540-GIZZ SKIN LESIONS, OVER 4 02/24/20 11 04630-OABJ SKIN LESIONS, OVER 4 08/19/19 15 10916-JRUG SKIN LESIONS, OVER 4 10/30/19 15 59790-BSXX SKIN LESIONS, OVER 4 04/13/20 15 87786-UXLZ SKIN LESIONS, OVER 4 01/13/20 15 74538-TUOB SKIN LESIONS, OVER 4 03/17/20 16 62291-DGAM SKIN LESIONS, OVER 4 12/17/19 16 43832-FRUM SKIN LESIONS, OVER 4 09/14/19 16 15200-LIXP SKIN LESIONS, OVER 4 06/29/19 16 97427-HJGB SKIN LESIONS, OVER 4 05/18/20 17 42980-OBHR SKIN LESIONS, OVER 4 02/17/20 17 56665-PMXP SKIN LESIONS, OVER 4 08/19/19 17 66475-CQWY SKIN LESIONS, OVER 4 11/17/19 17 27856-RZEC SKIN LESIONS, OVER 4 06/16/19 17 39559-PTVO SKIN LESIONS, OVER 4 05/17/20 18 10796-ZGPR SKIN LESIONS, OVER 4 02/16/20 18 54495-LVCF SKIN LESIONS, OVER 4 11/17/19 18 65976-LXHY SKIN LESIONS, OVER 4 08/18/19 18 24185- Removal of Foreign Body, Subcut 0 06/17/2019 Next Appt Details Provider Name:Malik Clements , 05/09/2025 12:15:00 PM, [address] [facility], [place], [address], Insurance Providers Payer Name Payer Address Payer Phone Subscriber Number Group Number Insured Name Patient Relationship to Insured Coverage Start Date Coverage End Date Medicare National Govt [facility] [address] [place] [address] [id number] Isaías zJulienne Self - patient is the insured [facility] [address] [place] [address] [phone] [id number] Julienne Chand Self - patient is [...] 1 C - Fell / concousin 01/07/17 [facility] for 2 day s roxie , for chest pain, high blood pressure and a head bump 03/2013
--- OUTSIDE RECORDS SUMMARY | 2025-04-10 13:00 | XMS_ITS | Clinical Summary ---
Author Organization [facility] Address [address] [place] [address] Phone Care Team Providers Care Simulation Developer Name Role Phone Dannie Huang MD Primary Care Provider [phone] Allergies Active Allergy Reactions Criticality Noted Date [...] general and how their size shape and price changer time affect her level of suspicion [...] N/A PROCEDURE: HISTORICAL COLONOSCOPY ESOPHAGOGASTRODUODENOSCOPY N/A PROCEDURE: [place] ESOPHAGOGASTRODUODENOSCOPY TRANSORAL DIAGNOSTIC CHOLECYSTECTOMY N/A PROCEDURE: HISTORICAL CHOLECYSTECTOMY TUBAL LIGATION PROCEDURE: HISTORICAL TUBAL LIGATION OTHER SURGICAL HISTORY 04/07/2023 Left PROCEDURE: [place] THORACOSCOPY W/THERA WEDGE RESEXN INITIAL UNILAT; COMMENT: [...] Info) Description 05/02/2025 3:30 PM EST Appointment [facility] Scan [address] [place] [id number] 05/15/2025 10:00 AM EST Office Visit Thoracic Surgery - [place] [address] [facility] [address] [place] [address] [address] [place] [address] Health Maintenance Due Date Last Done Comments [...] age to complete this topic Insurance MEDICARE [facility] [address] [place] [address] Care Teams Simulation Developer Relationship Specialty Start Date End Date Dannie Huang MD [address] [place] [address] [address] [place] PCP - General 03/22/18
== END 2025-04-10 11:00 | disposition home or self-care (01) ==
LOC: HO.HSM 10:44
PROVIDERS: PCP Internal Medicine; Visit Provider Psychiatry & Neurology Neurology
DX: G43.009 Migraine without aura, not intractable, without status migrainosus (principal); G43.109 Migraine with aura, not intractable, without status migrainosus; I67.89 Other cerebrovascular disease
CPT/HCPCS: 99214

== ENCOUNTER → 2025-04-10 10:43 | Outpatient (BNVA) | payer MEDICARE, OTHER, SELFPAY | PROVIDERS: PCP Internal Medicine; Visit Provider Psychiatry & Neurology Neurology | DX: G43.109 Migraine with aura, not intractable, without status migrainosus (principal); G43.009 Migraine without aura, not intractable, without status migrainosus; I67.89 Other cerebrovascular disease; I10 Essential (primary) hypertension; F32.A Depression, unspecified | CPT/HCPCS: 99212 ==

== ENCOUNTER 2025-05-06 09:30 | Outpatient (AMB) | payer MEDICARE, OTHER, SELFPAY ==
--- NOTE | 2025-05-06 09:22 | A.OFFPC_ITS ---
Vital Signs 05/06/25 09:38 Height 5 ft 4 in Weight 163 lb BMI 28.0 BP 144/76 H Blood Pressure Location Lt brachial Position Sitting Respiration 18 Pulse 83 Pulse Source Pulse Oximeter Temp 98 F Temp Source Temporal Artery Scan Pulse Oximetry (%) 98 Oxygen Delivery Method Room Air Intake Visit Reasons: 4 weeks follow up Train Attendant Required: No Accompanied by: Self / Same As Patient Allergies niacin (Niacin) Allergy (Mild, Verified 05/06/25 09:22) RASH lactose (Lactose) Adverse Reaction (Mild, Verified 05/06/25 09:22) DIARRHEA atorvastatin (Lipitor) Adverse Reaction (Unknown, Verified 05/06/25 09:22) Unknown celecoxib (Celebrex) Adverse Reaction (Unknown, Verified 05/06/25 09:22) Unknown simvastatin Adverse Reaction (Unknown, Verified 05/06/25 09:22) Unknown Medication List - Last Reconciled 05/06/25 by Alex Mensah MD acetaminophen (Tylenol) 325 mg PO QID PRN aspirin 81 mg PO DAILY benzonatate 100 mg PO BID-TID PRN blood sugar diagnostic As directed blood-glucose meter As directed carvedilol 6.25 mg See Protocol PO BIDWM 30 days famotidine 20 mg PO BID 90 days FreeStyle Lite Strips (blood sugar diagnostic) once daily NS lancets As directed lancets (FreeStyle Lancets) As directed lisinopril 2.5 mg PO DAILY 90 days metformin 500 mg PO DAILY 90 days pravastatin 80 mg PO DAILY 90 days Tobacco use date assessed: 04/04/25 Dental Screening Dental Screen Date: 04/04/25 HPI HPI Comments History of Present Illness Details History of Present Illness The patient is a 80 year old individual presenting for chronic condition management. Regarding type 2 diabetes, the patient expressed concern that metformin is not working, though the last HbA1c in January was 6.7. The patient's A1c has previously been 6.5, 6.4, and as high as 6.9. The patient recalls taking metformin many years ago with poor gastrointestinal tolerance but is on a small dose currently. The patient has a chronic cough that causes a sore throat, particularly at night. The patient uses Robitussin DM, which offers short-term relief. Past medication trials to resolve the cough included stopping lisinopril, which did not help, and using an albuterol inhaler and fluticasone, which did not stop the cough. The patient has not previously tried stopping carvedilol. The patient also reports feeling pressure in the chest when climbing stairs. For hypertension, the patient is on carvedilol 6.25 mg and lisinopril 2.5 mg once daily, with a recent blood pressure reading of 144 for the systolic. A previous recommendation to skip one of the blood pressure medications for a day or two has not been attempted. The patient reports having ongoing headaches and was seen by a neurologist who diagnosed ocular migraines, ruling out a TIA, and recommended Tylenol as needed. Regarding sleep, the patient stopped taking lorazepam on the of this month and now has insomnia. A trial of melatonin up to 3 mg was ineffective and caused morning fatigue. The patient's almost a year ago, and the patient reports feeling sad, experiencing depression, and eating more as a result. Despite being 80, the patient is very active, still working, drives, runs errands, and cares for grandchildren. Medical History: - Type 2 diabetes mellitus - Hypertension - Ocular migraine, TIA ruled out - Coronary artery disease - Hyperlipidemia - Chronic cough - Insomnia - Grief reaction - History of cancer, 2 years cancer-free Surgical History: - Unspecified surgery, possibly related to history of cancer. Medications: - Metformin for diabetes mellitus - Carvedilol 6.25 mg once a day for hype rtension - Lisinopril 2.5 mg once a day for hyper tension - Aspirin for coronary artery disease - Pravastatin 80 mg for hyperlipidemia - Robitussin DM (dextromethorphan) every four hours for cough - Tylenol as needed for ocular migraines Diagnostic Results: - Labs: Last HbA1c in January was 6.7%. P revious values include 6.4%, 6.5% and 6.9%. Social History - Functional Status: The patient is high ly active, still works, and describes running around a lot; lives on the second floor. - Stressors: The patient's passe d away almost a year ago, which causes sadness and depression. - Family status: The patient's sons are supportive, and the patient helps care for grandchildren. - Nutritional Intake: Reports overeating and watching TV as a coping mechanism for depression. - Substance Use: Recently discontinued l orazepam. [facility] Medical History (Updated 05/06/25 @ 10:06 by Alex Mensah MD) Headache Insomnia Peptic ulcer Lung cancer Psoriasis Type 2 diabetes mellitus GERD (gastroesophageal reflux disease) Osteopenia Pulmonary nodule Depression Fibromyalgia IBS (irritable bowel syndrome) High cholesterol HTN (hypertension) Chronic cough Allergic rhinitis Cough due to bronchospasm Surgical History Hx of bladder repair surgery S/P lobectomy of lung History of tubal ligation History of esophagogastroduodenoscopy (EGD) History of laparoscopic cholecystectomy History of colonoscopy (~10/27/23) Family History (Updated 04/04/25 @ 09:57 by Jennifer Mohr MA) Father Myocardial infarction Mother Diabetic coma Sister No problems noted. 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 Fabrice Barraza, Juliette Aburto, Ricky Mclain and colleagues, with an educational juan daniel from [employer]. Review of Systems Narrative Review of Systems - Respiratory: Reports a chronic cough, causing a sore throat at night. Reports chest pressure when climbing stairs. - Neurological: Reports ongoing headaches, diagnosed as ocular migraines. - Psychiatric: Reports depressed mood and sadness following 's . - Sleep: Reports insomnia since discontinuing lorazepam. - Gastrointestinal: Reports increased bowel movements with metformin. Reports occasional sharp abdominal pain after eating a large meal. - Genitourinary: Reports normal urination. All systems reviewed & are unremarkable except as reviewed in HPI and above Physical exam (Primary Care) Vital Signs: Last Vital Signs Temp 98 F 05/06/25 09:38 Pulse 83 05/06/25 09:38 Resp 18 05/06/25 09:38 BP 144/76 H 05/06/25 09:38 Pulse Ox 98 05/06/25 09:38 Oxygen Delivery Method Room Air 05/06/25 09:38 BMI result Body Mass Index 28.0 Tobacco/Smoking Status: Tobacco use Status Tobacco use date assessed 04/04/25 05/06/25 09:23 Patient Tobacco Use Status Former Tobacco user 05/06/25 09:23 Tobacco use type Cigarette 05/06/25 09:23 e-Cigarette/Vaping Use Never Used 05/06/25 09:23 Thrive Assessment: Date of Thrive Assessment Date Thrive assessed 04/04/25 05/06/25 09:23 Narrative Physical Exam General: +Alert and oriented, Well nourished, No acute distress. Eye: Pupils are equal, round and reactive to light, Intact accommodation, Extraocular movements are intact, Normal conjunctiva, Vision unchanged. HENT: Normocephalic, Atraumatic, Tympanic membranes are clear, Normal hearing, Oral mucosa is moist, No pharyngeal erythema, Ear canals patent. Respiratory: Lungs CTA bilaterally, No wheeze, Respirations are non-labored, Reports of cough and throat irritation, history of ocular migraine. Cardiovascular: Regular rate, Regular rhythm, S1 auscultated, S2 auscultated, No murmur, Good pulses equal in all extremities, Normal peripheral perfusion, No edema, Blood pressure noted at 144. Gastrointestinal: Soft, Non-tender, Non-distended, Normal bowel sounds, No organomegaly, Reports increased bowel movements with Metformin. Musculoskeletal: Normal range of motion, Normal strength, No tenderness, No swelling, No deformity, Normal gait. Integumentary: Warm, Dry, One [place], Intact. Neurologic: Alert, Oriented, Normal sensory, Normal motor function, No focal defects, Cranial Nerves II-XII are grossly intact, Normal deep tendon reflexes, Reports headaches diagnosed as ocular migraine. Psychiatric: Cooperative, Appropriate mood & affect, Normal judgment, Reports feelings of sadness related to bereavement. 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 Despite the patient's concern that metformin is not working, it will be continued for overall control. Labs will be repeated in 1-2 months. The side effect of increased bowel movements is noted. Code(s): E11.9 - Type 2 diabetes mellitus without complications Category: Medical Qualifiers: Diabetes mellitus alf insulin use: without local intermodal truck driver use Diabetes mellitus complication status: without complication Qualified Code(s): E11.9 - Type 2 diabetes mellitus without complications Plan: - Continue metformin. The patient's HbA1c of 6.7 is within goal for age. - Recheck labs in one to two months. (2) Chronic cough: Comment: The etiology remains unclear. Acid reflux and upper respiratory tract causes have been considered and seem less likely. We will investigate medication side effects. Instructed the patient to hold carvedilol for one day and lisinopril on a separate day to see if either affects the cough. This will provide more information for the upcoming pulmonology consultation with Dr. Fontana on the . The patient should continue using a humidifier and air purifier. Code(s): R05.3 - Chronic cough Category: Medical Plan: - To investigate if cough is a medication side effect, the patient will hold carvedilol for one day and lisinopril for a separate day. - Continue using Robitussin DM as needed for symptom relief. - Keep appointment with gun repair clerk Dr. Fontana on the for further evaluation. - Recommended keeping the room well-humidified and purified. (3) HTN (hypertension): Comment: Blood pressure is reasonably controlled with a systolic of 144 mmHg on carvedilol 6.25 mg and lisinopril 2.5 mg. The main intervention at this time is to assess for medication side effects as a cause for the cough by sequentially holding the medications for one day each. Code(s): I10 - Essential (primary) hypertension Category: Medical Qualifiers: Hypertension type: unspecified Qualified Code(s): I10 - Essential (primary) hypertension Plan: - Continue carvedilol 6.25 mg and lisinopril 2.5 mg daily. - Instructed to trial holding carvedilol for one day, and on a separate day, holding lisinopril for one day to assess for cough as a side effect. (4) Insomnia: Comment: This is likely related to the recent cessation of lorazepam. Plan is to first trial melatonin, titrating up to 10 mg. If this is ineffective, will start trazodone as a safer long-term option. Code(s): G47.00 - Insomnia, unspecified Category: Medical Qualifiers: Insomnia type: drug-induced Qualified Code(s): F19.982 - Other psychoactive substance use, unspecified with psychoactive substance-induced sleep disorder Plan: - Recommended trial of melatonin up to 10 mg for sleep. - If melatonin is ineffective, will start trazodone as a safer alternative. (5) Ocular migraine: Comment: The patient was diagnosed by neurology. The recommendation is to continue with Tylenol as needed for headaches. The neurologist will reassess in six months. Code(s): G43.109 - Migraine with aura, not intractable, without status migrainosus Category: Medical (6) High cholesterol: Comment: Stable. Continue current regimen of aspirin and pravastatin 80 mg. Code(s): E78.00 - Pure hypercholesterolemia, unspecified Category: Medical Plan: Health Maintenance: - Diet: Advised against overeating, especially in response to depression. - Exercise: Encouraged the patient to maintain a high level of activity and not to slow down. - Home environment: Advised to keep the room humidified and purified to help with the chronic cough. - Specialist care: Upcoming appointment with pulmonology scheduled. Patient was informed and verbally consented to the use of an ambient scribe for clinic note documentation during this visit. Plan I discussed with the patient that the recent HbA1c of 6.7 is an excellent result and within goal for the patient's age, so we will continue metformin. We discussed the ongoing chronic cough and the plan to investigate medication side effects before the patient's upcoming pulmonology appointment; I instructed the patient to hold carvedilol for one day and lisinopril for a separate day to observe for any changes. For insomnia after stopping lorazepam, I recommended trying melatonin up to 10 mg and advised that if it fails, we can start trazodone, which is a safer option. I reinforced the neurologist's recommendation to use Tylenol as needed for ocular migraines and advised continuing aspirin and pravastatin for heart health and cholesterol. We also discussed the impact of grief on the patient's eating habits, and I provided encouragement to remain active and find alternative coping strategies. A follow- up visit is scheduled in three months. Medications: Discontinued lorazepam Discontinued Reason: Doctor's Order 0.25 mg (1/2 x 0.5 mg) PO BEDTIME 4 weeks 10 tabs 0RF anxiety Patient Instructions: - Your blood sugar control is very good. Continue taking metformin as prescribed. We will check your labs again in 1-2 months. - To figure out what is causing your cough, try skipping your carvedilol blood pressure pill for one day. On a different day, try skipping your lisinopril pill. See if not taking one of these pills makes a difference in your cough. Make sure to tell your lung doctor, Dr. Fontana, about this when you see him on the . - For trouble sleeping, you can try taking up to 10 mg of melatonin. If that does not help, let us know, and we can discuss another medication called trazodone. - For your headaches, continue taking Tylenol only when you need it, as your neurologist recommended. - Continue taking your other daily medications, including aspirin and pravastatin. - Use a humidifier in your room to help with your cough at night. - It is important to stay active and busy. Try not to eat too much when you are feeling sad. - Please schedule a follow-up appointment in three months.
[2025-05-06 09:38] VITALS: BP 144/76; PULSE 83; RESP 18; TEMP 36.6; O2SAT 98; BMI 28.0
--- OUTSIDE RECORDS SUMMARY | 2025-05-06 10:14 | XMS_ITS | Clinical Summary ---
Author Organization [facility] Address [address] [place] [address] Phone Care Team Providers Care Language Teacher Name Role Phone Dannie Huang MD Primary Care Provider [phone] Allergies Active Allergy Reactions Criticality Noted Date [...] and how their size shape and change attendant time affect her level of suspicion for [...] no dule DM2 (diabetes mellitus, type 2) ([facility] V24, [facility] V28) DX:DM2 (diabetes [...] Information Value Date Recorded Sex Assigned at Female 04/18/2025 4:35 PM EST Legal Sex Female 7:34 PM EST Gender Identity Female 04/18/2025 4:35 PM EST Sexual Orientation Not on file Obstetrics History [...] Care Team (Late st Contact Info) Description 05/11/2025 9:00 AM EST Appointment [facility] CT Scan [address] [place] [id number] 05/15/2025 10:00 AM EST Office Visit Thoracic Surgery - [place] [address] [place] [address] Cata Lebron PA [address] [place] [phone] Health Maintenance Due Date Last Done Comments [...] Depression Screening 06/05/2024 COVID-19 Vaccine (4 - 2024-2 6 season) 2025 03/16/2024, 07/05/2021, 09/09/2020 Influenza Vaccine [...] to complete this topic Insurance MEDICARE [facility] [address] [place] [address] Care Teams Language Teacher Relationship Specialty Start Date End Date Dannie Huang MD [address] [place] [address] [address] [place] PCP - General 03/22/18
== END 2025-05-06 10:02 | disposition home or self-care (01) ==
LOC: HO.HMCHD 09:30
PROVIDERS: PCP Student in an Organized Health Care Education/Training Program; Visit Provider Student in an Organized Health Care Education/Training Program
DX: E11.9 Type 2 diabetes mellitus without complications (principal); R05.3 Chronic cough; I10 Essential (primary) hypertension; F19.982 Other psychoactive substance use, unspecified with psychoactive substance-induced sleep disorder; G43.109 Migraine with aura, not intractable, without status migrainosus; E78.00 Pure hypercholesterolemia, unspecified

== ENCOUNTER → 2025-05-06 09:30 | Outpatient (BNVA) | payer MEDICARE, OTHER, SELFPAY | PROVIDERS: PCP Student in an Organized Health Care Education/Training Program; Visit Provider Student in an Organized Health Care Education/Training Program | DX: E11.9 Type 2 diabetes mellitus without complications (principal); I10 Essential (primary) hypertension; F19.982 Other psychoactive substance use, unspecified with psychoactive substance-induced sleep disorder; G43.109 Migraine with aura, not intractable, without status migrainosus; E78.00 Pure hypercholesterolemia, unspecified; R05.3 Chronic cough | CPT/HCPCS: 99212 ==

== ENCOUNTER 2025-05-16 13:08 | Outpatient (AMB) | payer MEDICARE, OTHER, SELFPAY ==
--- OUTSIDE RECORDS SUMMARY | 2023-12-01 05:30 | XMS_ITS ---
Author Organization Fabrice Crain III, MD Address [address] [place] [address] Care Team Providers Care Product Architect Name Role Phone Alex Mensah MD Primary Care Provider Dr. Fabrice Batista III Unavailable Allergies Allergen (clinical drug ingredient) Drug/Non Drug [...] Benzonatate 100 MG TAKE 1 CAPSULE BY [facility] EVERY 8 HOURS NEEDED FOR COUGH Oral Active Albuterol Sulfate HFA 108 (90 Base) MCG/ACT 1 puff as needed Inhalation every 4 hrs Active Zoryve 0.3 % 1 application Knitter Machine ally Once a day Active LORazepam 1 [...] Problem Status W/U Status Risk Notes Problem [id number] Other obesity (E66.8) Active confirmed Her body mass index is 31.6. We have discussed her weight loss strategy. [...] Date Provider Diagnosis Fabrice Crain III, MD [address] [place] [address] [place] [address] 12/01/2023 Fabrice Crain Malignant neoplasm o f [...] Benzonatate 100 MG TAKE 1 CAPSULE BY [facility] EVERY 8 HOURS NEEDED FOR COUGH Oral Albuterol Sulfate HFA 108 (9 0 Base) MCG/ACT 1 puff as needed Inhalation every 4 hrs Zoryve 0.3 % 1 application Knitter Machine ally Once a day LORazepam 1 MG [...] Months, Reason: OV Provider Name:Fabrice Crain , 10/10/2025 11:00:00 AM, [address] [place] [address] [address], [place], [address], Progress Notes * JUVENTINO CANDELARIO:[birth year] (78 yo F)Acc No.[id number]:12/01/2023 Progress Notes Patient: TREY KOWALSKI Provider: Tory Crain MD :1945 A ge:78 Y S ex:Female Date:12/01/2023 Address:[address] [place] [address] [place], [id number] Pcp:Dannie Huang MD Subjective: * Chief Complaints: [...] mg/dL) 52 (Ref Range: mg/dL) * Lab:Comprehensive [place]. Pane l Fast * Order Date 11/13/2023 01/26/2022 [...] 0 12/01/2023 Generated for Bryan lee/Emily/eTransmitting on: 1 07/17/2024 06:44 PM EST History and Physical Notes * HPI (History of Present Illness) Category Sub-Category Detail Notes COVID-19 Screening Questions Have you had any new onset fever, chills, cough, congestion, sore throat, shortness of breath, muscle aches?: No Have you been exposed to the virus withi n the last 10 days?: No Have you travelled internationally in [facility] last 10 days?: No Have you been [...]
--- OUTSIDE RECORDS SUMMARY | 2023-12-18 05:00 | XMS_ITS ---
Author Organization [facility] Address [address] [place] [address] Care Team Providers Care Research Contracts Supervisor Name Role Phone Karin Nelson Primary Care Provider Malik Albert Unavailable [phone] Param Arora Unavailable [phone] Encounters Encounter Location Date Provider Diagnosis [address] [address] 12/18/2023 Param Arora Plan Of Treatment Next Appt Details Provider Name:Malik Clements , 08/15/2025 09:30:00 AM, [address] [place], [address], Progress Notes * Ahsan CANDELARIOB:[birth year] (80 yo F)Acc No.[id number]:12/18/2023 Progress Note Patient: Julienne KOWALSKI Provider: Sid Syed DPM :1945 A ge:78 Y S ex:Female Date:12/18/2023 Address:[address] [place], [place] [id number] Pcp:Karin Nelson Subjective: * Chief Complaints: * [...] 12/18/2023 Generated for Bryan lee/Emily/Sher on: 1 07/17/2024 06:45 PM EST
--- OUTSIDE RECORDS SUMMARY | 2024-01-04 07:15 | XMS_ITS ---
Author Organization [facility] Address [address] [place] [address] Care Team Providers Care Senior Energy Trader Name Role Phone Karin [place] Primary Care Provider Malik Albert Unavailable [phone] Param Arora Unavailable [phone] REASON FOR VISIT sooner appt Encounters Encounter Location Date Provider Diagnosis [address] [address] 01/04/2024 Param Arora Plan Of Treatment Next Appt Details Provider Name:Malik Clements , 08/15/2025 09:30:00 AM, [address] [place], [address], Progress Notes * Jesse CANDELARIOHaiB:[birth year] (80 yo F)Acc No.[id number]:01/04/2024 Progress Note Patient: Julienne KOWALSKI Provider: iSd Syed DPM :1945 A ge:78 Y S ex:Female Date:01/04/2024 Address:[address] [place] [address] Pcp:Karin [place] Subjective: * Chief Complaints: * [...] 01/04/2024 Generated for Bryan lee/Emily/Sher on: 1 07/17/2024 06:44 PM EST
--- OUTSIDE RECORDS SUMMARY | 2024-04-05 06:00 | XMS_ITS ---
Author Organization Fabrice Crain III, MD Address [address] [place] [address] Care Team Providers Care Physician Representative Name Role Phone Alex Mensah MD Primary Care Provider UnavailDr. Fabrice Majano III Unavailable Allergies Allergen (clinical drug ingredient) Drug/Non Drug Allergy documented on EMR Reaction Allergy Type Onset Date Status cortisone Cortisone elevated BP and Glucose Drug Allergy Active niacin Niacin Unknown Drug Allergy Active Lactose Unknown Drug Allergy Active REASON FOR VISIT left lung cancer, Stage I, 2022, Hypertension, Diabetes, Osteoporosis, Obesity Medications Medication SIG (Take, Route, Frequency, Duration) Notes Start Date End Date Status Claritin 10 MG 1 tablet Orally Once a day Active Zoryve 0.3 % 1 application Wallpaper Hanger Helper ally Once a day Active Benzonatate 100 MG TAKE 1 CAPSULE BY [facility] EVERY 8 HOURS NEEDED FOR COUGH Oral Active Albuterol Sulfate HFA 108 (90 Base) MCG/ACT 1 puff as needed Inhalation every 4 hrs Active Omeprazole 20 MG 1 capsule 30 minutes before morning meal Orally Twice a day Active Pravastatin Sodium 80 MG 1 tablet Orally Once a day Active Carvedilol 6.25 MG Orally Twice a day Active LORazepam 1 MG 1 1/2 tablet at bedt al as needed Oral Twice a day Active Azelastine-Fluticasone 137-50 MCG/ACT 1 spray in each nostril Nasally Twice a day Active hydrALAZINE HCl 25 [...] Problem Status W/U Status Risk Notes Problem 901910689 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 Vital Signs Temperature 97.4 degrees Fahrenheit 04/05/20 24 Blood pressure systolic 138 mm Hg 04/05/20 24 Blood pressure diastolic 77 mm Hg 024 Heart Rate 79 /min 04/05/2024 Height 60 in 04/05/2024 Weight 161 lbs 04/05/2024 BMI 31.44 kg/m2 04/05/2024 Encounters Encounter Location Date Provider Diagnosis Fabrice Crain III, MD [address] [place] [address] [place] [address] 04/05/2024 Fabrice Crain Malignant neoplasm o f lower lobe of left lung C34.32 ; Former smoker Z87.891 ; Gastroesophageal reflux disease without esophagitis K21.9 ; Essential hypertension I10 ; Type 2 diabetes mellitus with other specified complication E11.69 ; Hyperlipidemia, unspecified E78.5 and Age-related osteoporosis without current pathological fracture M81.0 Assessments Encounter Date Diagnosis (ICD Code) Assessment Notes Treat ment Notes Treatment Clinical Notes 04/05/2024 Malignant neoplasm o f lower lobe of left lung (ICD-10 - C34.32) There is no sign of recurrent disease at this time. Incisions are healed and the pain is slowly resolving 04/05/2024 Former smoker (ICD-1 0 - Z87.891) She seems highly motivated not to smoke and we discussed strategies for prevention of relapse in times of stress and illness. 04/05/2024 Gastroesophageal reflux disease without esophagitis (ICD-10 - K21.9) She has occasional reflux, well-controlled medication and no other therapy is necessary at this time. 04/05/2024 Essential hypertensi on (ICD-10 - I10) Her blood pressure is controlled and no change in her regimen as necessary. 04/05/2024 Type 2 diabetes mellitus with other specified complication (ICD-10 - E11.69) She will continue on current therapy. Her fasting glucose levels have been under 150. She has been compliant with her medication. 04/05/2024 Hyperlipidemia, unspecified (ICD-10 - E78.5) Her lipids are well controlled and she will continue on her current regimen. 04/05/2024 Age-related osteoporosis without current pathological fracture (ICD-10 - M81.0) She is asymptomatic at this time. Plan Of Treatment Medication Medication Name Sig Start Date Stop Date Notes Claritin 10 MG 1 tablet Orally Once a day Zoryve 0.3 % 1 application Wallpaper Hanger Helper ally Once a day Benzonatate 100 MG TAKE 1 CAPSULE BY [facility] EVERY 8 HOURS NEEDED FOR COUGH Oral Albuterol Sulfate HFA 108 (9 0 Base) MCG/ACT 1 puff as needed Inhalation every 4 hrs Omeprazole 20 MG 1 capsule 30 minutes before morning meal Orally Twice a day Pravastatin Sodium 80 MG 1 tablet Orally Once a day Carvedilol 6.25 MG Orally Twice a day LORazepam 1 MG 1 1/2 tablet at bedt al as needed Oral Twice a day Azelastine-Fluticasone 137-5 0 MCG/ACT 1 spray in each nostril Nasally Twice a day hydrALAZINE HCl 25 MG 1 tablet with food Orally twice a day Fluticasone Furoate 100 MCG/ACT 1 puff Inhalation Once a day Next Appt Details Follow Up: 6 Months, In six months, Reason: OV, Routine check-up Provider Name:Fabrice Crain , 10/10/2025 11:00:00 AM, [address] [place] [address], [address], Progress Notes * GEMMA CANDELARIOB:[birth year] (79 yo F)Acc No.[id number]:04/05/2024 Progress Notes Patient: TREY KOWALSKI Provider: Tory Crain MD :1945 A ge:79 Y S ex:Female Date:04/05/2024 Address:[address] [place] [address] [facility] Pcp:Dannie Huang MD Subjective: * Chief Complaints: * l eft lung cancer, Stage I, 2022HypertensionDiabetesOsteoporosisObesity * HPI: C OVID-19 Screening: Questions H ave you experienced fever, chills, [...] COVID-19 in the past? N o * : The patient, a 79-year-old female, presented with a persistent cough that has been ongoing for a long time. The cough was initially dry but has recently become productive with mucus, particularly at night. The cough is severe enough to keep her awake until 2 or 3 in the morning. The patient has a history of lung cancer, for which she had surgery on April 07 of the previous year. The cancer was located in her left lung. She has been taking dextromethorphan, benzonatate, albuterol inhaler, and a nasal spray as Shantanu for the cough, but these medications do not always alleviate her symptoms. She has been seeing a pulmonary doctor, Dr. Sam, who has conducted several tests but is still unsure of the cause of the cough. The patient is scheduled for another breathing test in May. She also has a history of diabetes, which she reports is under control with recent blood sugar levels ranging from 120 to 129. Blood Sugar Level is 120-129. * ROS: G eneral/Constitutional: pain o nly normal aches and pains. C hills d enies.?Fatigue a dmits. F ever d enies. E NT: Decreased hearing m ild. R espiratory: Cough d enies. C ardiovascular: Chest pain with exertion d enies. D yspnea on exertion?denies. S hortness of breath w ith exertion. G astrointestinal: Constipation o ccasional. D ecreased appetite d enies. D iarrhea d enies. H eartburn d enies. N ausea d enies. R ectal bleeding d enies. V omiting d enies. H ematology: bruising d enies. p etechiae d enies. S wollen glands n one have been noted. G enitourinary: Frequent urination d enies. M usculoskeletal: Muscle aches d enies. P [...] lobe 04/07/2023 * Hospitalization/Major Diagno stic Procedure: H ospitalization for 's parkinson's, alzheimer's, and dementia - september, current year * Family History: F ather: 62 yrs, cad, mi, diagnosed with CVD. M other: 6 yrs, diabetes, diagnosed with DM. 3 son(s) , 1 daughter(s) . . Her mother was diabetic. Her daughter has rheumatoid arthritis. Her father had coronary artery disease and of a myocardial infarction. Her children are healthy and well. - parkinson's, alzheimer's, and dementia. * Social History: T obacco Use: T obacco Use/Smoking P atient is a f ormer smoker H ow long has it been since you last smoked??> 10 years A dditional Findings: Tobacco Non-User E x-cigarette smoker S he lives at home with her and does not smoke or drink. She is not employed at the current time. * Medications: T akingFluticasone Furoate 100 MCG/ACT Aerosol Powder Breath Activated 1 puff Inhalation Once a day Azelastine-Fluticasone 137-50 MCG/ACT Suspension 1 spray in each nostril Nasally Twice a day LORazepam 1 MG Tablet 1 1/2 tablet at bedtime as needed Oral Twice a day Carvedilol 6.25 MG Tablet Orally Twice a day Pravastatin Sodium 80 MG Tablet 1 tablet Orally Once a day hydrALAZINE HCl 25 MG Tablet 1 tablet with food Orally twice a day Omeprazole 20 MG Capsule Delayed Release 1 capsule 30 minutes before morning meal Orally Twice a day Claritin 10 MG Tablet 1 tablet Orally Once a day Albuterol Sulfate HFA 108 (90 Base) MCG/ACT Aerosol Solution 1 puff as needed Inhalation every 4 hrs Benzonatate 100 MG Capsule TAKE 1 CAPSULE BY MOUTH EVERY 8 HOURS NEEDED FOR COUGH Oral Zoryve 0.3 % Cream 1 application Externally Once a day Medication List reviewed and reconciled with the patientTaking Fluticasone Furoate 100 MCG/ACT Aerosol Powder Breath Activated 1 puff Inhalation Once a day Taking Azelastine-Fluticasone 137-50 MCG/ACT Suspension 1 spray in each nostril Nasally Twice a day Taking LORazepam 1 MG Tablet 1 1/2 tablet at bedtime as needed Oral Twice a day Taking Carvedilol 6.25 MG Tablet Orally Twice a day Taking Pravastatin Sodium 80 MG Tablet 1 tablet Orally Once a day Taking hydrALAZINE HCl 25 MG Tablet 1 tablet with food Orally twice a day Taking Omeprazole 20 MG Capsule Delayed Release 1 capsule 30 minutes before morning meal Orally Twice a day Taking Claritin 10 MG Tablet 1 tablet Orally Once a day Taking Albuterol Sulfate HFA 108 (90 Base) MCG/ACT Aerosol Solution 1 puff as needed Inhalation every 4 hrs Taking Benzonatate 100 MG Capsule TAKE 1 CAPSULE BY MOUTH EVERY 8 HOURS NEEDED FOR COUGH Oral Taking Zoryve 0.3 % Cream 1 application Externally Once a day Medication List reviewed and reconciled with the patient * Allergies: N iacinLactoseCortisone: elevated BP and Glucoseno[Allergies Verified] Objective: * Vitals: H t: 60, Wt:161, BMI:31.44, BP:138/77, HR:79, Temp:97.4, Ht-cm: 152.4, Wt-k.03. * Examination: G eneral Examination: GENERAL APPEARANCE: p leasant, well nourished, well developed, in no acute distress, calm and relaxed, obese, elderly woman. HEAD: a traumatic, normocephalic. [...] vascular bruits. LUNGS: c lear to auscultation, no wheezes, rales, rhonchi, good air movement, Thoracotomy scar is well-healed. BREASTS: N ot examined. ABDOMEN: b owel sounds normal, no ascites, no organomegaly, no mass, centripital obesity. RECTAL EXAM: n ot examined. MUSCULOSKELETAL: e xtremities unremarkable, no clubbing, cyanosis or edema. PERIPHERAL PULSES: n ormal. NEUROLOGIC: a lert and oriented, cranial nerves 2-12 grossly intact, deep tendon reflexes 2+ symmetrical, motor strength normal upper and lower extremities, sensory exam intact. PSYCH: a lert, oriented, cognitive function intact, cooperative with exam, good eye contact, thought process logical, goal directed. Assessment: * Assessment: 1. M alignant neoplasm of lower lobe of left lung - C34.32 (Primary) N otes :There is no sign of recurrent disease at this time. Incisions are healed and the pain is slowly resolving 2 . F ormer smoker - Z87.891 N otes :She seems highly motivated not to smoke and we discussed strategies for prevention of relapse in times of stress and illness. 3 . G astroesophageal reflux disease without esophagitis - K21.9 ?Notes :She has occasional reflux, well-controlled medication and no other therapy is necessary at this time. 4 . E ssential hypertension - I10 N otes :Her blood pressure is controlled and no change in her regimen as necessary. 5 . T ype 2 diabetes mellitus with other specified complication - E11.69 ? N otes :She will continue on current therapy. Her fasting glucose levels have been under 150. She has been compliant with her medication. 6 . H yperlipidemia, unspecified - E78.5 N otes :Her lipids are well controlled and she will continue on her current regimen. 7 . A ge-related osteoporosis without current pathological fracture - M81.0? Notes :She is asymptomatic at this time. Plan: * Treatment: * Procedure Codes: * [...] of tobacco use and urged to quit. 06/05/2023 DM Care Plan: P atient Lifestyle Goals P atient wants to be able to manage diabetes without too much effort. T reatment Goals B lood Sugars less than < 115, HbA1C < 7.0. B arriers n o barriers. S elf-Managment Goals W ork on weight loss, with a goal of losing 1 lb per week. * Follow Up: 6 Months, In six months (Reason: OV, Routine check-up) * Images: * Sign off status: Completed true * Provider: Tory Crain MD Date: 06/05/2023 Generated for Bryan lee/Emily/eTransmitting on: 07/17/2024 06:45 PM EST History and Physical Notes * HPI (History of Present Illness) Category Sub-Category Detail Notes COVID-19 Screening Questions Have you had any new onset fever, chills, cough, congestion, sore throat, shortness of breath, muscle aches?: No Have you been exposed to the virus withi n the last 10 days?: No Have you travelled internationally in [facility] last 10 days?: No Have you been exposed to COVID-19 in the past?: No Examination Category Sub-Category Detail Notes General Examination GENERAL APPEARANCE: pleasant , well nourished, well developed, in no acute distress, calm and relaxed, obese, elderly woman HEAD: atraumatic, normocep halic EYES: eomi, perrla, anicte livier, conjugate EARS: normal NOSE: septum intact NECK/THYROID: no jugular venous di stention, no carotid bruit, thyroid normal HEART: no clicks, gallops, murmurs, or rubs, regular rhythm, S1, S2 normal, no s3, or vascular bruits LUNGS: clear to auscultatio n, no wheezes, rales, rhonchi, good air movement, Thoracotomy scar is well-healed ABDOMEN: bowel sounds normal, no ascites, no organomegaly, no mass, centripital obesity NEUROLOGIC: alert and oriented, cranial nerves 2-12 grossly intact, deep tendon reflexes 2+ symmetrical, motor strength normal upper and lower extremities, sensory exam intact SKIN: no suspicious lesion s, anicteric PERIPHERAL PULSES: normal BREASTS: Not examined MUSCULOSKELETAL: extremities unremark able, no clubbing, cyanosis or edema LYMPH NODES: no enlarged lymph no [place],spleen normal RECTAL EXAM: not examined PSYCH: alert, oriented, cog nitive function intact, cooperative with exam, good eye contact, thought process logical, goal directed ORAL CAVITY: normal, unremarkable
--- OUTSIDE RECORDS SUMMARY | 2024-09-26 10:45 | XMS_ITS ---
Author Organization [facility] Address [address] [facility] [place] [address] Care Team Providers Care Icing Machine Operator Name Role Phone OmarJessica castroah Primary Care Provider Malik Albert Unavailable [phone] Radha Weir Unavailable [phone] Allergies Allergen (clinical drug ingredient) Drug/Non Drug [...] Active Encounters Encounter Location Date Provider Diagnosis [facility] [address] [address] 09/26/2024 Radha Weir Plan Of Treatment Next Appt Details Provider Name:Malki Clements , 08/15/2025 09:30:00 AM, [address] [place] [address], [phone], Progress Notes * Ahsan CANDELARIOB:[birth year] (80 yo F)Acc No.[id number]:09/26/2024 Progress Note Patient: Julienne KOWALSKI Provider: Mikel Weir DPM :1945 A ge:79 Y S ex:Female Date:09/26/2024 Address:[address] [place], [place] [phone] Pcp:Karin Nelson Subjective: * Chief Complaints: * [...] DPM Date: 0 09/26/2024 Generated for Bryan lee/Emily/Sher on: 1 07/17/2024 06:45 PM EST
--- OUTSIDE RECORDS SUMMARY | 2024-10-04 06:00 | XMS_ITS ---
Author Organization Fabrice Crain III, MD Address [address] [place] [address] Care Team Providers Care Senior Procurement Specialist Name Role Phone Alex Mensah MD Primary Care Provider Dr. Fabrice Batista III Unavailable Allergies Allergen (clinical drug ingredient) Drug/Non Drug Allergy documented on EMR Reaction Allergy Type Onset Date Status cortisone Cortisone elevated BP and Glucose Drug Allergy Active niacin Niacin Unknown Drug Allergy Active Lactose Unknown Drug Allergy Active REASON FOR VISIT Carcinoma of the left lung 2022, History of anemia, Hypertension, Diabetes, Osteoporosis Medications Medication SIG (Take, Route, Frequency, Duration) Notes Start Date End Date Status Albuterol Sulfate HFA 108 (90 Base) MCG/ACT 1 puff as needed Inhalation every 4 hrs Active Claritin 10 MG 1 tablet Orally Once a day Active Benzonatate 100 MG TAKE 1 CAPSULE BY [facility] EVERY 8 HOURS NEEDED FOR COUGH Oral Active Omeprazole 20 MG 1 capsule 30 minutes before morning meal Orally Twice a day Active hydrALAZINE HCl 25 MG 1 tablet with food Orally twice a day Active Azelastine-Fluticasone 137-50 MCG/ACT 1 spray in each nostril Nasally Twice a day Active Pravastatin Sodium 80 MG 1 tablet Orally Once a day Active Carvedilol 6.25 MG Orally Twice a day Active Sertraline HCl 25 MG 1/2 tablet for a we ek, then 1 tablet after Oral Once a day Active LORazepam 1 MG 1 1/2 tablet at bedt al as needed Oral Twice a day Active Fluticasone Furoate 100 MCG/ACT 1 puff Inhalation Once a day Active Zoryve 0.3 % 1 application Cement Truck Driver ally Once a day Active Social History Tobacco [...] Problem Status W/U Status Risk Notes Problem [id number] Malignant neoplasm of lower lobe of left lung (C34.32) Active confirmed There is no sign of recurrent disease at this time. Incisions are healed and the pain is slowly resolving. She has been scheduled for a followup CT scan of the chest by her thoracic surgeon In the near future. Vital Signs Temperature 98.1 degrees Fahrenheit 10/05/19 25 Blood pressure systolic 140 mm Hg 10/05/19 25 Blood pressure diastolic 78 mm Hg 025 Heart Rate 76 /min 10/04/2024 Height 60 in 10/04/2024 Weight 157 lbs 10/04/2024 BMI 30.66 kg/m2 10/04/2024 Encounters Encounter Location Date Provider Diagnosis Fabrice Crain III, MD [address] [place] [address] [place] [address] 10/04/2024 Fabrice Crain Malignant neoplasm o f lower lobe of left lung C34.32 ; Essential hypertension I10 ; Fibromyalgia M79.7 ; Type 2 diabetes mellitus with other specified complication E11.69 ; Hyperlipidemia, unspecified E78.5 ; Age-related osteoporosis without current pathological fracture M81.0 ; Former smoker Z87.891 and Other obesity E66.8 Assessments Encounter Date Diagnosis (ICD Code) Assessment Notes Treatment Notes Treatment Clinical Notes 10/04/2024 Malignant neoplasm of lower lobe of left lung (ICD-10 - C34.32) There is no sign of recurrent disease at this time. Incisions are healed and the pain is slowly resolving. She has been scheduled for a followup CT scan of the chest by her thoracic surgeon next month. 10/04/2024 Essential hypertension (ICD-10 - I10) Her blood pressure is controlled and no change in her regimen as necessary. 10/04/2024 Fibromyalgia (ICD-10 - M79.7) She has occasional low-grade abdominal discomfort. 10/04/2024 Type 2 diabetes mellitus with other specified complication (ICD-10 - E11.69) She will continue on current therapy. Her fasting glucose levels have been under 150. She has been compliant with her medication. 10/04/2024 Hyperlipidemia, unspecified (ICD-10 - E78.5) Her lipids are well controlled and she will continue on her current regimen. 10/04/2024 Age-related osteoporosis without current pathological fracture (ICD-10 - M81.0) She is asymptomatic at this time. 10/04/2024 Former smoker (ICD-10 - Z87.891) She seems highly motivated not to smoke and we discussed strategies for prevention of relapse in times of stress and illness. 10/04/2024 Other obesity (ICD-10 - E66.8) Her body mass index is 30. We have discussed her weight loss strategy. We discussed diet and nutrition. We made a plan to lose weight at a rate of one half of a pound per week. Plan Of Treatment Medication Medication Name Sig Start Date Stop Date Notes Albuterol Sulfate HFA 108 (9 0 Base) MCG/ACT 1 puff as needed Inhalation every 4 hrs Claritin 10 MG 1 tablet Orally Once a day Benzonatate 100 MG TAKE 1 CAPSULE BY [facility] EVERY 8 HOURS NEEDED FOR COUGH Oral Omeprazole 20 MG 1 capsule 30 minutes before morning meal Orally Twice a day hydrALAZINE HCl 25 MG 1 tablet with food Orally twice a day Azelastine-Fluticasone 137-5 0 MCG/ACT 1 spray in each nostril Nasally Twice a day Pravastatin Sodium 80 MG 1 tablet Orally Once a day Carvedilol 6.25 MG Orally Twice a day Sertraline HCl 25 MG 1/2 tablet for a we ek, then 1 tablet after Oral Once a day LORazepam 1 MG 1 1/2 tablet at bedt al as needed Oral Twice a day Fluticasone Furoate 100 MCG/ACT 1 puff Inhalation Once a day Zoryve 0.3 % 1 application Cement Truck Driver ally Once a day Next Appt Details Follow Up: 6 Months, Reason: ov Provider Name:Fabrice Sudeep Crain , 10/10/2025 11:00:00 AM, [address] [place] [address] , STEFANY Marcello, [place], [address], Progress Notes * JUVENTINO CANDELARIO:[birth year] (79 yo F)Acc No.[id number]:10/04/2024 Progress Notes Patient: TREY KOWALSKI Provider: Tory Crain MD :1945 A ge:79 Y S ex:Female Date:10/04/2024 Address:[address] [place], [place] [phone] Pcp:Dannie Huang MD Subjective: * Chief Complaints: * C arcinoma of the left lung 2022History of anemiaHypertensionDiabetesOsteoporosis * HPI: C OVID-19 Screening: S he returns for ongoing followup of a history of bronchogenic, non-small cell carcinoma of left lung. After resection. She has been in remission. She remains in remission at this time. Her in May 09, 2024 off Parkinson's disease and she hates being alone now. She sold her home in June and moved innto an apartment in [place] near her workplace. On October 08, 2024. Her thoracic surgeon, Dr. Cheng, has ordered a CT scan of her chest for surveillance purposes. She has a new primary care physician, Dr. Fuentes, at [facility], who has put her on sertraline and inncreased her lorazepam to 3 times a day.No sign of recurrent lung cancer or a new primary was found today. Questions H ave you had any new onset fever, chills, cough, congestion, sore throat, shortness of breath, muscle aches? N o * ROS: G eneral/Constitutional: pain L eft thoracotomy scar. C hills d enies. F atigue a dmits. F ever d enies. E NT: Decreased hearing d enies. R espiratory: Cough n on-productive. C ardiovascular: Chest pain with exertion d enies. D yspnea on exertion?denies. S hortness of breath d enies. G [...] pain d enies. P sychiatric: Depressed mood B ereavement and sadness annd loss. ? * Medical History: * Surgical History: T [...] Twice a day LORazepam 1 MG Tablet 1/2 in the morning, 1/2 in the afternoon, 1 in the evening Oral 3 times a day Carvedilol 6.25 MG Tablet Orally [...] Cream 1 application Externally Once a day Sertraline HCl 25 MG Tablet 1/2 tablet for a week, then 1 tablet after Oral Once a day Medication List reviewed and reconciled with the patientTaking Fluticasone Furoate 100 MCG/ACT Aerosol Powder Breath Activated 1 puff Inhalation Once a day Taking Azelastine-Fluticasone 137-50 MCG/ACT Suspension 1 spray in each nostril Nasally Twice a day Taking LORazepam 1 MG Tablet 1/2 in the morning, 1/2 in the afternoon, 1 in the evening Oral 3 times a day Taking Carvedilol 6.25 MG Tablet [...] Cream 1 application Externally Once a day Taking Sertraline HCl 25 MG Tablet 1/2 tablet for a week, then 1 tablet after Oral Once a day Medication List reviewed and reconciled with the patient * Allergies: N iacinLactoseCortisone: elevated BP and Glucoseno[Allergies Verified] Objective: * Vitals: H t: 60, Wt:157, BMI:30.66, BP:140/78, HR:76, Temp:98.1, Ht-cm: 152.4, Wt-k.21. * Examination: G eneral Examination: GENERAL APPEARANCE: p leasant, well nourished, well developed, in no acute distress, calm and relaxed, obese, woman. HEAD: a traumatic, normocephalic. EYES: e [...] normal, no s3, or vascular bruits. LUNGS: d iminished breath sounds throughout, no wheezes, rales, rhonchi, Healed left thoracotomy scar. BREASTS: no masses palpable bilaterally. ABDOMEN: b owel sounds normal, no ascites, no organomegaly, no mass. RECTAL EXAM: n ot examined. MUSCULOSKELETAL: e xtremities unremarkable, no clubbing, cyanosis or edema. PERIPHERAL PULSES: n ormal. NEUROLOGIC: a lert and oriented, cranial nerves 2-12 grossly intact, deep tendon reflexes 2+ symmetrical, motor strength normal upper and lower extremities, sensory exam intact. PSYCH: a lert, oriented, Sadness. Assessment: * Assessment: 1. M alignant neoplasm of lower lobe of left lung - C34.32 (Primary) N otes :There is no sign of recurrent disease at this time. Incisions are healed and the pain is slowly resolving. She has been scheduled for a followup CT scan of the chest by her thoracic surgeon next month. 2 . E ssential hypertension - I10 N otes :Her blood pressure is controlled and no change in her regimen as necessary. 3 . F ibromyalgia - M79.7 N otes :She has occasional low-grade abdominal discomfort. 4 . T ype 2 diabetes mellitus with other specified complication - E11.69 ? N otes :She will continue on current therapy. Her fasting glucose levels have been under 150. She has been compliant with her medication. 5 . H yperlipidemia, unspecified - E78.5 N otes :Her lipids are well controlled and she will continue on her current regimen. 6 . A ge-related osteoporosis without current pathological fracture - M81.0? Notes :She is asymptomatic at this time. 7 . F maria m smoker - Z87.891 N otes :She seems highly motivated not to smoke and we discussed strategies for prevention of relapse in times of stress and illness. 8 . O ther obesity - E66.8 N otes :Her body mass index is 30. We have [...] tobacco use and urged to quit. 0 10/02/2024 DM Care Plan: P atient Lifestyle Goals P atient wants to get a glucose monitor to monitor at home. T reatment Goals B lood Sugars less than < 115, HbA1C < 7.0. B arriers n o barriers. S elf-Managment Goals W ork on weight loss, with a goal of losing 1 lb per week. * Follow Up: 6 Months (Reason: ov) * Images: * Sign off status: Completed true * Provider: Tory Crain MD Date: 0 10/04/2024 Generated for Bryan lee/Emily/Evysmitting on: 1 07/17/2024 06:46 PM EST History and Physical Notes * HPI (History of Present Illness) Category Sub-Category Detail Notes COVID-19 Screening Questions Have you had any new onset fever, chills, cough, congestion, sore throat, shortness of breath, muscle aches?: No Examination Category Sub-Category Detail Notes General Examination GENERAL APPEARANCE: pleasant , well nourished, well developed, in no acute distress, calm and relaxed, obese, woman HEAD: atraumatic, normocep halic EYES: eomi, perrla, anicte livier, conjugate EARS: normal NOSE: septum intact NECK/THYROID: no jugular venous di stention, no carotid bruit, thyroid normal HEART: no clicks, gallops, murmurs, or rubs, regular rhythm, S1, S2 normal, no s3, or vascular bruits LUNGS: diminished breath so unds throughout, no wheezes, rales, rhonchi, Healed left thoracotomy scar ABDOMEN: bowel sounds normal, no ascites, no organomegaly, no mass NEUROLOGIC: alert and oriented, cranial nerves 2-12 grossly intact, deep tendon reflexes 2+ symmetrical, motor strength normal upper and lower extremities, sensory exam intact SKIN: no suspicious lesion s, anicteric PERIPHERAL PULSES: normal BREASTS: no masses palpable b ilaterally MUSCULOSKELETAL: extremities unremark able, no clubbing, cyanosis or edema LYMPH NODES: no enlarged lymph no [place],spleen normal RECTAL EXAM: not examined PSYCH: alert, oriented, Sad ness ORAL CAVITY: normal, unremarkable
--- OUTSIDE RECORDS SUMMARY | 2025-04-11 05:00 | XMS_ITS ---
Author Organization Fabrice Crain III, MD Address [address] [place] [address] Care Team Providers Care Director Process Improvement Name Role Phone Alex Mensah MD Primary Care Provider UnavailDr. Fabrice Majano III Unavailable [phone] Allergies Allergen (clinical drug ingredient) Drug/Non Drug Allergy documented on EMR Reaction Allergy Type Onset Date Status cortisone Cortisone elevated BP and Glucose Drug Allergy Active niacin Niacin Unknown Drug Allergy Active Lactose Unknown Drug Allergy Active REASON FOR VISIT Hypertension, Hyperlipidemia, Diabetes, Osteoporosis, Asthma, Obesity Medications Medication SIG (Take, Route, Frequency, Duration) Notes Start Date End Date Status Sertraline HCl 25 MG 1/2 tablet for a we ek, then 1 tablet after Oral Once a day Active Benzonatate 100 MG TAKE 1 CAPSULE BY [facility] EVERY 8 HOURS NEEDED FOR COUGH Oral Active Zoryve 0.3 % 1 application Conditioning Room Worker ally Once a day Active Claritin 10 MG 1 tablet Orally Once a day Active Albuterol Sulfate HFA 108 (90 Base) MCG/ACT 1 puff as needed Inhalation every 4 hrs Active LORazepam 1 MG 1 1/2 tablet at bedt al as needed Oral Twice a day Active Carvedilol 6.25 MG Orally Twice a day Active Pravastatin Sodium 80 MG 1 tablet Orally Once a day Active hydrALAZINE HCl 25 MG 1 tablet with food Orally twice a day Active Omeprazole 20 MG 1 capsule 30 minutes before morning meal Orally Twice a day Active Fluticasone Furoate 100 MCG/ACT 1 puff Inhalation Once a day Active Azelastine-Fluticasone 137-50 MCG/ACT 1 spray in each nostril Nasally Twice a day Active Social History Tobacco [...] Non-User Ex-cigaret te smoker Vital Signs Temperature 97.8 degrees Fahrenheit 04/11/20 25 Blood pressure systolic 138 mm Hg 04/11/20 25 Blood pressure diastolic 69 mm Hg 025 Heart Rate 72 /min 04/11/2025 Height 60 in 04/11/2025 Weight 162 lbs 04/11/2025 BMI 31.64 kg/m2 04/11/2025 Encounters Encounter Location Date Provider Diagnosis Fabrice Crain III, MD [address] [place] [address] [place] [address] 04/11/2025 Fabrice Crain Malignant neoplasm o f lower lobe of left lung C34.32 ; Former smoker Z87.891 ; Other obesity E66.8 ; Fibromyalgia M79.7 ; Type 2 diabetes mellitus with other specified complication E11.69 ; Hyperlipidemia, unspecified E78.5 and Age-related osteoporosis without current pathological fracture M81.0 Assessments Encounter Date Diagnosis (ICD Code) Assessment Notes Treatment Notes Treatment Clinical Notes 04/11/2025 Malignant neoplasm of lower lobe of left lung (ICD-10 - C34.32) There is no sign of recurrent disease at this time. Incisions are healed and the pain is slowly resolving. She has been scheduled for a followup CT scan of the chest by her thoracic surgeon In the near future. 04/11/2025 Former smoker (ICD-10 - Z87.891) She seems highly motivated not to smoke and we discussed strategies for prevention of relapse in times of stress and illness. 04/11/2025 Other obesity (ICD-10 - E66.8) Her body mass index is 31.6. We have discussed her weight loss strategy. We discussed diet and nutrition. We made a plan to lose weight at a rate of one half of a pound per week. 04/11/2025 Fibromyalgia (ICD-10 - M79.7) She has occasional low-grade abdominal discomfort. 04/11/2025 Type 2 diabetes mellitus with other specified complication (ICD-10 - E11.69) She will continue on current therapy. Her fasting glucose levels have been under 150. She has been compliant with her medication. 04/11/2025 Hyperlipidemia, unspecified (ICD-10 - E78.5) Her lipids are well controlled and she will continue on her current regimen. 04/11/2025 Age-related osteoporosis without current pathological fracture (ICD-10 - M81.0) She is asymptomatic at this time. Plan Of Treatment Medication Medication Name Sig Start Date Stop Date Notes Sertraline HCl 25 MG 1/2 tablet for a we ek, then 1 tablet after Oral Once a day Benzonatate 100 MG TAKE 1 CAPSULE BY [facility] EVERY 8 HOURS NEEDED FOR COUGH Oral Zoryve 0.3 % 1 application Conditioning Room Worker ally Once a day Claritin 10 MG 1 tablet Orally Once a day Albuterol Sulfate HFA 108 (9 0 Base) MCG/ACT 1 puff as needed Inhalation every 4 hrs LORazepam 1 MG 1 1/2 tablet at bedt al as needed Oral Twice a day Carvedilol 6.25 MG Orally Twice a day Pravastatin Sodium 80 MG 1 tablet Orally Once a day hydrALAZINE HCl 25 MG 1 tablet with food Orally twice a day Omeprazole 20 MG 1 capsule 30 minutes before morning meal Orally Twice a day Fluticasone Furoate 100 MCG/ACT 1 puff Inhalation Once a day Azelastine-Fluticasone 137-5 0 MCG/ACT 1 spray in each nostril Nasally Twice a day Next Appt Details Follow Up: 6 Months, Reason: OV Provider Name:Fabrice Crain , 10/10/2025 11:00:00 AM, [address] [place] [address] [address] [address], [place], [address], Progress Notes * GEMMA CANDELARIOB:[birth year] (80 yo F)Acc No.[id number]:04/11/2025 Progress Notes Patient: TREY KOWALSKI Provider: Tory Crain MD :1945 A ge:80 Y S ex:Female Date:04/11/2025 Address:[address] [place], [place] [address] Pcp:Alex Mensah MD Subjective: * Chief Complaints: * H ypertensionHyperlipidemiaDiabetesOsteoporosisAsthmaObesity * HPI: C OVID-19 Screening: S he returns for a scheduled visit for medical management of numerous issues. Her blood pressure remains slightly elevated. She was in the [facility] in February for transient loss of vision in the left eye which returned after a few hours. She saw her neurologist yesterday. 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 She is on an antiplatelet drug. She is free of symptoms today.Her vision remains normal. Questions H ave you had any new onset fever, chills, cough, congestion, sore throat, shortness of breath, muscle aches? N o * ROS: G eneral/Constitutional: pain o nly normal aches and pains. C hills d enies.?Fatigue a dmits. F ever d enies. E NT: Decreased hearing m ild. R espiratory: Cough d enies. C ardiovascular: Chest pain with exertion d enies. D yspnea on exertion?denies. S hortness of breath d enies. G astrointestinal: Constipation d enies. D ecreased appetite d enies.?Diarrhea d enies. H eartburn o ccasional. N ausea d enies. R ectal bleeding [...] History: * Surgical History: T ubal ligation 1986choleycystectomy 2006Bladder suspention 1993colonoscopy, Dr. Blanchard 2014Lung [...] Verified] Objective: * Vitals: H t: 60, Wt:162, BMI:31.64, BP:138/69, HR:72, Temp:97.8, Ht-cm: 152.4, Wt-k.48. * Examination: G eneral Examination: GENERAL APPEARANCE: p leasant, well nourished, well developed, in no acute distress, calm and relaxed: obese: woman. HEAD: a traumatic, normocephalic. EYES: e iesha, perrla, anicteric, conjugate, Vision intact both eyes. EARS: n ormal. NOSE: s eptum intact. ORAL CAVITY: n ormal, unremarkable. NECK/THYROID: n o jugular venous distention, no carotid bruit, thyroid normal. LYMPH NODES: n o enlarged lymph nodes,spleen normal. SKIN: n o suspicious lesions, anicteric. HEART: n o clicks, gallops, murmurs, or rubs, regular rhythm, S1, S2 normal, no s3, or vascular bruits. LUNGS: c lear to auscultation . BREASTS: N ot examined. ABDOMEN: b owel sounds normal, no ascites, no organomegaly, no mass: centripital obesity. RECTAL EXAM: n ot examined. [...] her thoracic surgeon In the near future. 2 . F ormer smoker - Z87.891 N otes :She seems highly motivated not to smoke and we discussed strategies for prevention of relapse in times of stress and illness. 3 . O ther obesity - E66.8 N otes :Her body mass index is 31.6. We have discussed her weight loss strategy. We discussed diet and nutrition. We made a plan to lose weight at a rate of one half of a pound per week. 4 . F ibromyalgia - M79.7 N otes :She has occasional low-grade abdominal discomfort. 5 . T ype 2 diabetes mellitus [...] tobacco use and urged to quit. 1 06/11/2024 DM Care Plan: P atient Lifestyle Goals P atient wants to be able to manage diabetes without too much effort. T reatment Goals H bA1C < 7.0, Blood Sugars less than < 115. B arriers n o barriers. S elf-Managment Goals W ork on weight loss, with a goal of losing 1 lb per week. * Follow Up: 6 Months (Reason: OV) * Images: * Sign off status: Completed true * Provider: Tory Crain MD Date: 06/11/2024 Generated for Emai jesus/Emily/eTransmitting on: 07/17/2024 06:46 PM EST History and Physical Notes * HPI (History of Present Illness) Category Sub-Category Detail Notes COVID-19 Screening Questions Have you had any new onset fever, chills, cough, congestion, sore throat, shortness of breath, muscle aches?: No Examination Category Sub-Category Detail Notes General Examination GENERAL APPEARANCE: pleasant , well nourished, well developed, in no acute distress, calm and relaxed: obese: woman HEAD: atraumatic, normocep halic EYES: eomi, perrla, anicte livier, conjugate, Vision intact both eyes EARS: normal NOSE: septum intact NECK/THYROID: no jugular venous di stention, no carotid bruit, thyroid normal HEART: no clicks, gallops, murmurs, or rubs, regular rhythm, S1, S2 normal, no s3, or vascular bruits LUNGS: clear to auscultatio n ABDOMEN: bowel sounds normal, no ascites, no organomegaly, no mass: centripital obesity NEUROLOGIC: alert and oriented, cranial [...]
--- OUTSIDE RECORDS SUMMARY | 2025-05-09 07:15 | XMS_ITS ---
Author Organization [facility] Address [address] [place] [address] Care Team Providers Care Assistant Professor Of German Name Role Phone Karin Nelson Primary Care Provider Unavailabl Malik Willingham Unavailable [phone] REASON FOR VISIT Seen Sooner Encounters Encounter Location Date Provider Diagnosis [address] [address] 05/09/2025 Malik Clements Plan Of Treatment Next Appt Details Provider Name:Malik Clements , 08/15/2025 09:30:00 AM, [address] [place], [address], Progress Notes * Ahsan CANDELARIOB:[birth year] (80 yo F)Acc No.[id number]:05/09/2025 Progress Note Patient: Julienne KOWALSKI Provider: Sudeep Clements DPM :1945 A ge:80 Y S ex:Female Date:05/09/2025 Address:[address] [place] [address] Pcp:Karin Nelson Subjective: * Chief Complaints: * 1 . Seen Sooner. * Medical History: Objective: * Vitals: Assessment: Plan: * Treatment: * Images: * The named appointment provid er may or may not be the originator of this progress note, and it is not deemed complete until electronically signed by the appointment provider. Sign off status: Pending * Provider: Sudeep Clements DPM Date: 07/10/2024 Generated for Bryan lee/Emily/Sher on: 1 07/17/2024 06:44 PM EST
--- OUTSIDE RECORDS SUMMARY | 2025-05-11 08:34 | XMS_ITS | Encounter Summary ---
Author Organization [facility] Address [address] [place] [address] Care Team Providers Care Dobby Loom Fixer Name Role Phone Dannie Huang MD Primary Care Provider [phone] Reason for Referral * Imaging (Routine) - Authorized Specialty Diagnoses / Procedures Referred By Bay jamil Referred To Contact Radiology Diagnoses History of lung cancer Multiple pulmonary nodules Procedures CT Chest wo Contrast Cata Lebron [facility] [address] [address] Phone: tel: fax: [address] [address] Phone: tel: Referral ID Status Reason Start Date Expiration Date V isits Requested Visits Authorized [id number] Authorized 11/01/2024 11/01/2025 1 1 Reason for Visit * Imaging (Routine) - Authorized Specialty Diagnoses / Procedures Referred By Bay jamil Referred To Contact Radiology Diagnoses History of lung cancer Multiple pulmonary nodules Procedures CT Chest wo Contrast Cata Lebron [facility] [address] [address] Phone: tel: fax: [address] [address] Phone: tel: Referral ID Status Reason Start Date Expiration Date V isits Requested Visits Authorized [id number] Authorized 11/01/2024 11/01/2025 1 1 Encounter Details Date Type Department Care Team (Latest Contact Info) Description 05/11/2025 8:34 AM EST - 05/11/2025 11:59 PM EST Hospital Encounter [facility] CT Scan [address] [place] [address] History of lung cancer; Multiple pulmonary nodules Discharge Disposition: Home or Self Care Social History Tobacco Use Types Packs/Day Years [...] PM EST Sexual Orientation Not on file documented as of this encounter Medications at Time of Discharge aspirin 81 mg tablet Take 81 mg by mouth. 01/28/2025 carvediloL (COREG) 6.25 mg tablet Take 1 Tablet by mouth 2 times daily (with meals). fluticasone propionate (FLOVENT HFA INHL) Inhale 1 Inhaler into the lungs 2 times daily. guaiFENesin-codei ne (ROBITUSSIN-AC) 100-10 mg/5 mL syrup Take 5 mL by mouth 3 times daily as needed. pravastatin (PRAVACHOL) 80 mg tablet Take 1 Tablet by mouth daily. albuterol HFA (PROAIR HFA ; PROVENTIL HFA ; VENTOLIN HFA) 90 mcg/actuation inhaler Inhale 2 Puffs into the lungs every 4 hours as needed. 05/15/2025 azelastine HCl (AZELASTINE NASL) 2 Sprays by Nasal route 2 times daily. 05/15/2025 hydrALAZINE (APRESOLINE) 25 mg tablet Take 1 Tablet by mouth 2 times daily. 05/15/2025 ipratropium-albut Debi (DUONEB) 0.5-2.5 mg/3 mL nebulizer solution Inhale 3 mL into the lungs 4 times daily. 04/09/2023 05/15/2025 loratadine (CLARITIN) 10 mg tablet Take 1 Tablet by mouth daily. 05/15/2025 LORazepam (ATIVAN) 1 mg tablet Take 1 Tablet by mouth every 6 hours as needed. 05/15/2025 omeprazole (PriLOSEC) [address] capsule Take 1 Capsule by mouth 2 times daily. 05/15/2025 documented as of this encounter Discharge Disposition Disposition Code Departure Means Destination Home or Self Care documented in this encounter Plan of Treatment Not on file documented as of this encounter Procedures Procedure Name Priority Date/Time Associated Diagnosis Comments CT CHEST WO CONTRAST Routine 05/11/2025 8:48 AM EST History of lung cancer Multiple pulmonary nodules documented in this encounter Results * CT Chest wo Contrast (05/11/2025 8:48 AM EST) Anatomical Region Laterality Modality Body Computed Tomogra phy 05/13/2025 12:2 0 PM EST Impressions 05/13/2025 12:28 PM EST Left lower lobe wedge resection. No residual or recurrent disease. Several stable tiny nodules. This includes a semisolid nodule in the right lower lobe measuring 6-7 mm, attention on surveillance imaging. -------- FINAL REPORT -------- Dictated By: Marta Quintana Dictated Date: 05/13/2025 12:20 ET Assigned Physician: Marta Quintana Reviewed and Electronically Signed By: Marta Quintana Signed Date: 05/13/2025 12:28 ET Workstation ID: [id number] Transcribed By: Self Edit Transcribed Date: 05/13/2025 12:20 ET Narrative 05/13/2025 12:28 PM EST PROCEDURE: CT CHEST WITHOUT CONTRAST INDICATION: history of lung cancer. Surveillance. TECHNIQUE: Chest CT without contrast. Multi planar reformats were created and interpreted. The examination was performed utilizing dose reduction techniques.Total DLP 420 mGy/cm COMPARISON: No priors available. FINDINGS: LUNGS/PLEURA: Left lower lobe wedge resection. No residual or recurrent disease. Several stable tiny nodules. This includes a semisolid nodule in the left lower lobe measuring 6-7 mm. MEDIASTINUM: Dense mitral annular calcification. Scattered coronary and valvular calcifications. Small hiatal hernia. CHEST WALL: No axillary lymphadenopathy or superficial hematoma. UPPER ABDOMEN:The visualized portions of the upper abdomen are unremarkable. BONES: No acute fracture. Scattered degenerative changes seen throughout the bones. Procedure Note Marta Quintana MD - 05/13/2025 PROCEDURE: CT CHEST WITHOUT CONTRAST INDICATION: history of lung cancer. Surveillance. TECHNIQUE: Chest CT without contrast. Multi planar reformats were createdand interpreted. The examination was performed utilizing dose reductiontechniques.Total DLP 420 mGy/cm COMPARISON: No priors available. FINDINGS: LUNGS/PLEURA: Left lower lobe wedge resection. No residual or recurrentdisease. Several stable tiny nodules. This includes a semisolid nodule inthe left lower lobe measuring 6-7 mm. MEDIASTINUM: Dense mitral annular calcification. Scattered coronary andvalvular calcifications. Small hiatal hernia. CHEST WALL: No axillary lymphadenopathy or superficial hematoma. UPPER ABDOMEN:The visualized portions of the upper abdomen areunremarkable. BONES: No acute fracture. Scattered degenerative changes seen throughoutthe bones. IMPRESSION: Left lower lobe wedge resection. No residual or recurrent disease. Severalstable tiny nodules. This includes a semisolid nodule in the right lowerlobe measuring 6-7 mm, attention on surveillance imaging. -------- FINAL REPORT -------- Dictated By: Marta Quintana Dictated Date: 05/13/2025 12:20 ET Assigned Physician: Marta Quintana Reviewed and Electronically Signed By: Marta Quintana Signed Date: 05/13/2025 12:28 ET Workstation ID: [id number] Transcribed By: Self Edit Transcribed Date: 05/13/2025 12:20 ET Cata CHANG IM CT PROCEDURES Final Resul t documented in this encounter Visit Diagnoses Diagnosis History of lung cancer Personal history of malignant neoplasm of bronchus and lung Multiple pulmonary nodules Other diseases of lung, not elsewhere classified documented in this encounter Care Teams Dobby Loom Fixer Relationship Specialty Start Date End Date Dannie Huang MD [address] [place] [address] Dr Lorena [place] PCP - General 03/22/18 05/14/25 documented as of this encounter
--- OUTSIDE RECORDS SUMMARY | 2025-05-15 10:00 | XMS_ITS | Encounter Summary ---
Author Organization [facility] Address [address] [place] [address] Care Team Providers Care Podiatry Assistant Name Role Phone Alex Mensah MD Primary Care Provider [phone] Reason for Referral * Imaging (Routine) - Authorized Specialty Diagnoses / Procedures Referred By Bay jamil Referred To Contact Radiology Diagnoses Multiple pulmonary nodules History of lung cancer Procedures CT Chest wo Contrast Cata Lebron PA [address] [place] [address] Phone: tel: fax: [address] [address] Phone: tel: Referral ID Status Reason Start Date Expiration Date V isits Requested Visits Authorized [id number] Authorized 05/15/2025 05/15/2026 1 1 Reason for Visit * Reason Comments office visit Chest CT 05/11/25 Encounter Details Date Type Department Care Team (Late st Contact Info) Description 05/15/2025 10:00 AM EST Office Visit Thoracic Surgery - [place] [address] [facility] [address] [place] [id number] Cata Lebron [facility] [address] [place] [address] History of lung cancer (Primary Dx); Multiple pulmonary nodules Social History Tobacco Use Types Packs/Day Years [...] on file documented as of this encounter Last Filed Vital Signs Vital Sign Reading Time Taken Comments Blood Pressure 159/83 05/15/2025 9:42 AM EST Pulse 72 05/15/2025 9:42 AM EST Temperature 36.6 C (97.9 F) 05/15/2025 9:42 AM EST Respiratory Rate 16 05/15/2025 9:42 AM EST Oxygen Saturation 97% 05/15/2025 9:42 AM EST Inhaled Oxygen Concentration - - Weight 75.6 kg (166 lb 9.6 oz) 05/15/2025 9:42 A M EST Height 162.6 cm (5' 4 ) 05/15/2025 9:42 AM EST Body Mass Index 28.6 05/15/2025 9:42 AM EST documented in this encounter Progress Notes * CHARLENE Brown - 05/15/2025 10:13 AM ESTAssociated Problem(s): History of lung cancer Ms. Candelario is a 79-year-old female who had a robotic left lower lobe superior segmentectomy on April 07, 2023 for a stage 1A (pT1a, pN0) invasive lepidic adenocarcinoma. The patient's most recent surveillance chest CT scan done in May 2025 shows no new or worsening pulmonary nodule, or thoracic adenopathy, to suggest recurrence or new disease. She has several stable subcentimeter pulmonary nodules the largest of which includes a 6 mm mixed ground glass nodule in the right lower lobe. When looking back within the system to 2022 this has been there and been stable. She also had several other CTs in the system from outside facilities that do not have the bestquality due to cut size, but this also appears to have been stable since 2021. We will continue with routine chest CT surveillance the next of which will be in 1 year, May 2026. The patient have a follow-up visit after that as part of her surveillance protocol. Patient educated call the office should she have any questions or concerns prior to that next appointment. * CHARLENE Brown - 05/15/2025 10:00 AM EST Images from the original note were not included. Thoracic Surgery Follow Up Visit Patient name: Julienne Candelario : 1945 Date of Visit: May 15, 2025 Care Team PCP: Alex Mensah MD Printing Grey Cloth Tender: Dr. Fontana ([facility] [place]) Medical Oncologist: Dr. Crain Reason for Visit Chief Complaint Patient presents with office visit Chest CT 05/11/25 History of Present Illness Ms. Candelario is a 80 y.o. female who presents today after her most recent surveillance chest CT scan. This patient is a former smoker who had a robotic left lower lobe superior segmentectomy on April 07, 2023 for a stage 1A (pT1a, pN0) invasive lepidic adenocarcinoma. Patient states overall she has been doing well. States she got a new primary care doctor recently who has taken her off several chronic medications and states overall she feels like she is doing better. She denies any increasing shortness of breath, hemoptysis, unintentional weight loss, or new lumps or bumps concern for lymphadenopathy. She also is seeing a new trout farmer tomorrow for the first time, Dr. Fontana at [facility] [place]. Past Medical History: Diagnosis Date Allergic rhinitis due to pollen DX:Allergic rhinitis due to pollen Anemia DX:Anemia Chronic cough DX:Chronic cough Depression DX:Depression DM2 (diabetes mellitus, type 2) (CMS/HCC V24, CMS/HCC V28) DX:DM2 (diabetes mellitus, type 2) (HCC) Fibromyalgia DX:Fibromyalgia Gallstones DX:Gallstones GERD (gastroesophageal reflux disease) DX:GERD (gastroesophageal reflux disease) Hiatal hernia DX:Hiatal hernia History of stomach ulcers DX:History of stomach ulcers HTN (hypertension) DX:HTN (hypertension) IBS (irritable bowel syndrome) DX:IBS (irritable bowel syndrome) Mild intermittent asthma, uncomplicated DX:Mild intermittent asthma, uncomplicated Mixed hyperlipidemia DX:Mixed hyperlipidemia Mononeuropathy DX:Mononeuropathy Osteoarthritis DX:Osteoarthritis Osteopenia DX:Osteopenia Pulmonary nodule DX:Pulmonary nodule Patient Active Problem List Diagnosis Hypertension Multiple pulmonary nodules History of lung cancer Past Surgical History: Procedure Laterality Date CHOLECYSTECTOMY N/A PROCEDURE: HISTORICAL CHOLECYSTECTOMY COLONOSCOPY N/A PROCEDURE: HISTORICAL COLONOSCOPY ESOPHAGOGASTRODUODENOSCOPY N/A PROCEDURE: GA ESOPHAGOGASTRODUODENOSCOPY TRANSORAL DIAGNOSTIC OTHER SURGICAL HISTORY Left 04/07/2023 PROCEDURE: GA THORACOSCOPY W/THERA WEDGE RESEXN INITIAL UNILAT; COMMENT: LLL TUBAL LIGATION PROCEDURE: HISTORICAL TUBAL LIGATION Allergies Allergen Reactions Atorvastatin Celecoxib Lactose Gastritis Simvastatin Niacin Rash Current Outpatient Medications on File Prior to Visit Medication Sig Dispense Refill aspirin 81 mg tablet Take 81 mg by mouth. carvediloL (COREG) 6.25 mg tablet Take 1 Tablet by mouth 2 times daily (with meals). lisinopriL (PRINIVIL,ZESTRIL) 2.5 mg tablet take 1 tablet (2.5 mg) by mouth daily for 90 days melatonin 3 mg tablet Take by mouth. pravastatin (PRAVACHOL) 80 mg tablet Take 1 Tablet by mouth daily. fluticasone propionate (FLOVENT HFA INHL) Inhale 1 Inhaler into the lungs 2 times daily. (Patient not taking: Reported on 05/15/2025) guaiFENesin-codeine (ROBITUSSIN-AC) 100-10 mg/5 mL syrup Take 5 mL by mouth 3 times daily as needed. [DISCONTINUED] albuterol HFA (PROAIR HFA ; PROVENTIL HFA ; VENTOLIN HFA) 90 mcg/actuation inhaler Inhale 2 Puffs into the lungs every 4 hours as needed. [DISCONTINUED] azelastine HCl (AZELASTINE NASL) 2 Sprays by Nasal route 2 times daily. [DISCONTINUED] hydrALAZINE (APRESOLINE) 25 mg tablet Take 1 Tablet by mouth 2 times daily. [DISCONTINUED] ipratropium-albuteroL (DUONEB) 0.5-2.5 mg/3 mL nebulizer solution Inhale 3 mL into the lungs 4 times daily. [DISCONTINUED] loratadine (CLARITIN) 10 mg tablet Take 1 Tablet by mouth daily. [DISCONTINUED] LORazepam (ATIVAN) 1 mg tablet Take 1 Tablet by mouth every 6 hours as needed. [DISCONTINUED] omeprazole (PriLOSEC) [address] capsule Take 1 Capsule by mouth 2 times daily. No current facility-administered medications on file prior to visit. Social History Tobacco Use Smoking status: Former Current packs/day: 0.00 Average packs/day: 0.5 packs/day for 31.0 years (15.5 ttl pk-yrs) Types: Cigarettes Start date: 06/05/1961 Quit date: 06/05/1992 Years since quittin.9 Smokeless tobacco: Never Substance Use Topics Alcohol use: Never Drug use: Never Social History Social History Narrative , retired Review of Systems Review of Systems Constitutional: Negative for decreased appetite, fever and weight loss. Cardiovascular: Negative for chest pain and palpitations. Respiratory: Negative for cough, hemoptysis, shortness of breath and sputum production. Hematologic/Lymphatic: Negative for adenopathy. Gastrointestinal: Negative for abdominal pain and nausea. Genitourinary: Negative for dysuria. Neurological: Negative for light-headedness. Physical Exam Vitals: 05/15/25 0942 BP: (!) 159/83 Pulse: 72 Resp: 16 Temp: 36.6 ??C (97.9 ??F) SpO2: 97% Physical Exam Vitals reviewed. Constitutional: General: She is not in acute distress. Appearance: She is well-developed. She is not ill-appearing. HENT: Head: Normocephalic and atraumatic. Mouth/Throat: Mouth: Mucous membranes are moist. Eyes: General: Lids are normal. No scleral icterus. Cardiovascular: Rate and Rhythm: Normal rate and regular rhythm. Heart sounds: Murmur heard. Systolic murmur is present. Pulmonary: Effort: Pulmonary effort is normal. No accessory muscle usage or respiratory distress. Breath sounds: No wheezing, rhonchi or rales. Comments: CTA B Chest: Comments: Multiple left sided chest incisions are well healed without nodularity. Lymphadenopathy: Cervical: No cervical adenopathy. Upper Body: Right upper body: No supraclavicular adenopathy. Left upper body: No supraclavicular adenopathy. Skin: General: Skin is warm and dry. Neurological: Mental Status: She is alert and oriented to person, place, and time. Psychiatric: Attention and Perception: Attention normal. Mood and Affect: Mood normal. Behavior: Behavior is cooperative. Radiology I personally viewed the patient's current and past imaging studies, in addition to reviewing the dictated report from the reading radiologist. CT Chest wo Contrast Narrative: PROCEDURE: CT CHEST WITHOUT CONTRAST INDICATION: history [...] Scattered degenerative changes seen throughout the bones. Impression: Left lower lobe wedge resection. No residual or recurrent disease. Several stable tiny nodules. This includes a semisolid nodule in the right lower lobe measuring 6-7 mm, attention on surveillance imaging. -------- FINAL REPORT -------- Dictated By: Marta Quintana Dictated Date: 05/13/2025 12:20 ET Assigned Physician: Marta Quintana Reviewed and Electronically Signed By: Marta Quintana Signed Date: 05/13/2025 12:28 ET Workstation ID: [id number] Transcribed By: Self Edit Transcribed Date: 05/13/2025 12:20 ET Assessment and Plan Problem List Items Addressed This Visit Multiple pulmonary nodules Relevant Orders CT Chest wo Contrast History of lung cancer - Primary Ms. Candelario is a 79-year-old female who had a robotic left lower lobe superior segmentectomy on April 07, 2023 for a stage 1A (pT1a, pN0) invasive lepidic adenocarcinoma. The patient's most recent surveillance chest CT scan done in May 2025 shows no new or worsening pulmonary nodule, or thoracic adenopathy, to suggest recurrence or new disease. She has several stable subcentimeter pulmonary nodules the largest of which includes a 6 mm mixed ground glass nodule in the right lower lobe. When looking back within the system to 2022 this has been there and been stable. She also had several other CTs in the system from outside facilities that do not have the bestquality due to cut size, but this also appears to have been stable since 2021. We will continue with routine chest CT surveillance the next of which will be in 1 year, May 2026. The patient have a follow-up visit after that as part of her surveillance protocol. Patient educated call the office should she have any questions or concerns prior to that next appointment. Relevant Orders CT Chest wo Contrast CHARLENE Brown [facility] Thoracic Surgery [address] [place] [address], [address] [facility] [address] documented in this encounter Plan of Treatment Scheduled Orders Name Type Priority Associated Diagnoses Orde r Schedule CT Chest wo Contrast Imaging Routine Multiple pulmonary nodules History of lung cancer Expected: 05/15/2026, Expires: 05/15/2026 documented as of this encounter Visit Diagnoses Diagnosis History of lung cancer- Primary Personal history of malignant neoplasm of bronchus and lung Multiple pulmonary nodules Other diseases of lung, not elsewhere classified documented in this encounter Discontinued Medications Medication Sig Discontinue Reason Start Date End Da te albuterol HFA (PROAIR HFA ; PROVENTIL HFA ; VENTOLIN HFA) 90 mcg/actuation inhaler Inhale 2 Puffs into the lungs every 4 hours as needed. 05/15/2025 azelastine HCl (AZELASTINE NASL) 2 Sprays by Nasal route 2 times daily. 05/15/2025 hydrALAZINE (APRESOLINE) 25 mg tablet Take 1 Tablet by mouth 2 times daily. 05/15/2025 loratadine (CLARITIN) 10 mg tablet Take 1 Tablet by mouth daily. 05/15/2025 LORazepam (ATIVAN) 1 mg tablet Take 1 Tablet by mouth every 6 hours as needed. 05/15/2025 ipratropium-albuteroL (DUONEB) 0.5-2.5 mg/3 mL nebulizer solution Inhale 3 mL into the lungs 4 times daily. 04/09/2023 05/15/2025 omeprazole (PriLOSEC) [address] capsule Take 1 Capsule by mouth 2 times daily. 05/15/2025 documented as of this encounter Historical Medications * This list may reflect changes made after this encounter. aspirin 81 mg tablet Take 81 mg by mouth. 01/28/2025 melatonin 3 mg tablet Take by mouth. lisinopriL (PRINIVIL,ZESTRIL ) 2.5 mg tablet take 1 tablet (2.5 mg) by mouth daily for 90 days added in this encounter Care Teams Podiatry Assistant Relationship Specialty Start Date End Date Alex Mensah MD [address] [place] [address] Dr [address] [place] [address] PCP - General Internal Medicine 05/15/25 documented as of this encounter
--- NOTE | 2025-05-16 13:22 | A.OFFVIS_ITS ---
Vital Signs 05/16/25 13:23 Height 5 ft 4 in Weight 169 lb 12.095 oz BMI 29.1 BP 130/76 Blood Pressure Location Lt brachial Position Sitting Pulse 80 Pulse Source Pulse Oximeter Pulse Oximetry (%) 96 Oxygen Delivery Method Room Air Intake Visit Reasons: COPD Account Development Representative Required: No Accompanied by: Self / Same As Patient Allergies niacin (Niacin) Allergy (Mild, Verified 05/16/25 13:24) RASH lactose (Lactose) Adverse Reaction (Mild, Verified 05/16/25 13:24) DIARRHEA atorvastatin (Lipitor) Adverse Reaction (Unknown, Verified 05/16/25 13:24) Unknown celecoxib (Celebrex) Adverse Reaction (Unknown, Verified 05/16/25 13:24) Unknown simvastatin Adverse Reaction (Unknown, Verified 05/16/25 13:24) Unknown HPI Comments Details: The patient is here for pulmonary evaluation. The patient is a 80 year woman with a known history of lung cancer who is here for evaluation of a chronic cough. The patient states that she has been coughing for many years. Back in 2022 she had a pulmonary nodule subsolid nature in the left side. She did have an evaluation with thoracic surgery underwent a lobectomy removing a malignancy. The nodule was not subsolid and concerning for smoldering process. The surgery was with curative intent and she did not need any chemo or radiation afterwards. The patient continues to follow-up closely with thoracic surgery with serial CAT scans and no evidence of any recurrence which is reassuring. In the meantime she has had this chronic cough. Nonproductive in nature moderate severity. She has been multiple providers and had multiple tests were. She was seen by GI underwent a barium swallow and endoscopy without any evidence of any significant reflux. She does sleep elevated already. The patient also was known to have allergies from ENT. She had allergy testing at some point. Most recently she was taken off all her allergy medication just to try to start from scratch. She was taken off the loratadine. Will go ahead and check her allergy levels and also assess for allergy activity. The patient will benefit from an antihistamine at this time though I will send her a 1st generation antihistamine, chlorpheniramine as this is a very good medication for cough. In addition to that the patient did undergo pulmonary function studies at [facility] which I personally reviewed in May 2024. She did have an obstructive physiology with a concavity to the expiratory limb an FEV1 to FVC of only 71%. Bronchodilators were not used to see if she had a reversible obstruction. The patient did ultimately underwent a methacholine challenge which was negative for asthma. On exam she does not have any significant wheezing indeed she does have a cough is nonproductive and a little bit croupy. At this point she has been on Bentson Heladio will increase the dose to 200 mg. I do believe that patient should be off the HELADIO inhibitor as this can increase bradycardia levels and increase the tendency of coughing. The patient also states that she is concerned about using the Coreg that she believes is also affecting her cough. I do believe will be reasonable to switch her blood pressure medications if her primary care doctor agrees to an ARB and possibly a calcium channel kris. [facility] Medical History (Updated 05/18/25 @ 21:14 by Erik Fontana MD) Allergies Headache Insomnia Peptic ulcer Lung cancer Psoriasis Type 2 diabetes mellitus GERD (gastroesophageal reflux disease) Osteopenia Pulmonary nodule Depression Fibromyalgia IBS (irritable bowel syndrome) High cholesterol HTN (hypertension) Chronic cough Allergic rhinitis Cough due to bronchospasm Surgical History Hx of bladder repair surgery S/P lobectomy of lung History of tubal ligation History of esophagogastroduodenoscopy (EGD) History of laparoscopic cholecystectomy History of colonoscopy (~10/27/23) Family History (Updated 04/04/25 @ 09:57 by Jennifer Mohr MA) Father Myocardial infarction Mother Diabetic coma Sister No problems noted. 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 Cognitive needs: No Hearing needs: No Vision needs: Yes (Rx glasses) Review of Systems Const Denies fever(s) Eyes Reports no additional complaints ENT Reports nasal congestion and Reports nasal discharge Card Denies chest pain Resp Reports cough, Reports pain on inspiration and Denies wheezing GI Denies heartburn Musc Reports myalgias Skin/Breast Denies rash Neuro Reports no additional complaints Endo Reports no additional complaints Parish/Lymph Reports no additional complaints Aller/Immun Denies wheezing Physical Exam Vital Signs: Last Vital Signs Pulse 80 05/16/25 13:23 BP 130/76 05/16/25 13:23 Pulse Ox 96 05/16/25 13:23 Oxygen Delivery Method Room Air 05/16/25 13:23 BMI result Body Mass Index 29.1 Const General: comfortable HEENT Head: Yes normocephalic Neck Neck: Yes supple Resp Effort & Inspection: normal respiratory effort and Actively coughing Auscultation: clear to auscultation bilaterally Cardio Heart sounds: S1 normal heart sound present and S2 normal heart sound present GI Palpation (GI): Soft to palpation Skin General skin exam: no rashes or lesions noted Extrem General: Yes no clubbing, cyanosis or edema Assessment & Plan Assessment & Plan (1) Allergies: Code(s): T78.40XA - Allergy, unspecified, initial encounter Category: Medical Qualifiers: Encounter type: initial encounter Qualified Code(s): T78.40XA - Allergy, unspecified, initial encounter (2) Chronic cough: Code(s): R05.3 - Chronic cough Category: Medical (3) Lung cancer: Comment: s/p resection 04/2023 Code(s): C34.90 - Malignant neoplasm of unspecified part of unspecified bronchus or lung Category: Medical Qualifiers: Laterality: left Lung location: unspecified part of lung Qualified Code(s): C34.92 - Malignant neoplasm of unspecified part of left bronchus or lung Plan Chronic cough, multifactorial. With the chronicity may have a neurogenic component REC: Bloodwork and allergy testing start Chlopherinamine as needed Consider gabapentin for the cough if no better DANA as needed, Negative VERONICA r/o asthma, although obstructive physiology on the FVL increase Benzonates 200 consider changing BP meds: would consider stoping Coreg and Lisinopril to ARB and CCB. F/U with Thoracic surgery for serial CT chest for lung cancer f/u Orders: Orders Hypersensitive Pneumonitis Prf 05/16/25 R91.8 - Other nonspecific abnormal finding of lung field, T78.40XA - Allergy, unspecified, initial encounter Immunoglobulin E 05/16/25 T78.40XA - Allergy, unspecified, initial encounter Complete Blood Count Auto Diff 05/16/25 T78.40XA - Allergy, unspecified, initial encounter Erythrocyte Sedimentation Rate 05/16/25 T78.40XA - Allergy, unspecified, initial encounter Resp Allergy Profile Region I 05/16/25 R91.1 - Solitary pulmonary nodule, T78.40XA - Allergy, unspecified, initial encounter Medications: New benzonatate 200 mg PO BID PRN 60 caps 4RF cough 30 days Coding Level of Care Code New Pt Level 4 (57867) Diagnoses Allergy, initial encounter T78.40XA Encounter type: initial encounter Chronic cough R05.3 Malignant neoplasm of left lung, unspecified part of lung C34.92 Laterality: left Lung location: unspecified part of lung Time Spent (min) 60
[2025-05-16 13:23] VITALS: BP 130/76; PULSE 80; O2SAT 96; BMI 29.1
--- OUTSIDE RECORDS SUMMARY | 2025-05-16 18:45 | XMS_ITS | Patient Health Record ---
Author Organization Fabrice Crain III, MD Address [address] [address] Care Team Providers Care Filling Machine Operator Name Role Phone Rodrick SHIELDS, Alex Primary Care Provider Dr. Fabrice Batista III Unavailable Allergies Allergen (clinical drug ingredient) Drug/Non Drug Allergy documented on EMR Reaction Allergy Type Onset Date Status cortisone Cortisone elevated BP and Glucose Drug Allergy Active niacin Niacin Unknown Drug Allergy Active Lactose Unknown Drug Allergy Active Reason For Referral No Information Medications Medication SIG (Take, Route, Frequency, Duration) Notes Start Date End Date Status LORazepam 1 MG 1 1/2 tablet at bedt al as needed Oral Twice a day Active Carvedilol 6.25 MG Orally Twice a day Active Fluticasone Furoate 100 MCG/ACT 1 puff Inhalation Once a day Active Sertraline HCl 25 MG 1/2 tablet for a we ek, then 1 tablet after Oral Once a day Active Azelastine-Fluticasone 137-50 MCG/ACT 1 spray in each nostril Nasally Twice a day Active Pravastatin Sodium 80 MG 1 tablet Orally Once a day Active hydrALAZINE HCl 25 MG 1 tablet with food Orally twice a day Active Omeprazole 20 MG 1 capsule 30 minutes before morning meal Orally Twice a day Active Benzonatate 100 MG TAKE 1 CAPSULE BY [facility] EVERY 8 HOURS NEEDED FOR COUGH Oral Active Zoryve 0.3 % 1 application Career Guidance Technician ally Once a day Active Claritin 10 MG 1 tablet Orally Once a day Active Albuterol Sulfate HFA 108 (90 Base) MCG/ACT 1 puff as needed Inhalation every 4 hrs Active Social History Tobacco Use: Social History [...] Problem Status W/U Status Risk Notes Problem 3980419 Former smoker (Z87.891) Active confirmed She seems highly motivated not to smoke and we discussed strategies for prevention of relapse in times of stress and illness. Problem 548533105 Fibromyalgia (M79.7) Active confirmed She has occasional low-grade abdominal discomfort. Problem 847659853065 Type 2 diabetes mellitus with other specified complication (E11.69) Active confirmed She will continue on current therapy. Her fasting glucose levels have been under 150. She has been compliant with her medication. Problem 589430950 Other obesity (E66.8) Active confirmed Her body mass index is 31.6. We have discussed her weight loss strategy. We discussed diet and nutrition. We made a plan to lose weight at a rate of one half of a pound per week. Problem 67540185 Hyperlipidemia, unspecified (E78.5) Active confirmed Her lipids are well controlled and she will continue on her current regimen. Problem 55953516 Age-related osteoporosis without current pathological fracture (M81.0) Active confirmed She is asymptomatic at this time. Problem 72544329 Essential hypertension (I10) Active confirmed Her blood pressure is controlled and no change in her regimen as necessary. Problem 774731296 Gastroesophageal reflux disease without esophagitis (K21.9) Active confirmed She has occasional reflux, well-controll ed medication and no other therapy is necessary at this time. Problem Anemia (235138385) Anemia, unspecified type (D64.9) Active confirmed She has a mild microcytic anemia with a ferritin over 100. The microcytosis is new. She'll be followed carefully. It does not require treatment at this time. Problem 937293622 Malignant neopla sm of lower lobe of left lung (C34.32) Active confirmed There is no sign of recurrent disease at this time. Incisions are healed and the pain is slowly resolving. She has been scheduled for a followup CT scan of the chest by her thoracic surgeon In the near future. 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 Vital Signs Heart Rate 72 /min 04/11/2025 Temperature 97.8 degrees Fahrenheit 04/11/2025 Blood pressure diastolic 69 mm Hg 04/11/2025 Height 60 in 04/11/2025 Blood pressure systolic 138 mm Hg 04/11/2025 Weight 162 lbs 04/11/2025 BMI 31.64 kg/m2 04/11/2025 Encounters Encounter Location Date Provider Diagnosis Fabrice Crain III, MD [address] [place] [address] [address] [place] [address] 10/04/2024 Fabrice rCain Malignant neoplasm o f lower lobe of left lung C34.32 ; Essential hypertension I10 ; Fibromyalgia M79.7 ; Type 2 diabetes mellitus with other specified complication E11.69 ; Hyperlipidemia, unspecified E78.5 ; Age-related osteoporosis without current pathological fracture M81.0 ; Former smoker Z87.891 and Other obesity E66.8 Fabrice Crain III, MD [address] [place] [address] [address] [place] [address] 04/11/2025 Fabrice Crain Malignant neoplasm o f [...] chest by her thoracic surgeon next month. 04/11/2025 Former smoker (ICD-10 - Z87.891) She seems highly motivated not to smoke and we discussed strategies for prevention of relapse in times of stress and illness. 04/11/2025 Malignant neoplasm of lower lobe of left lung (ICD-10 - C34.32) There is no sign of recurrent disease at this time. Incisions are healed and the pain is slowly resolving. She has been scheduled for a followup CT scan of the chest by her thoracic surgeon In the near future. 10/04/2024 Fibromyalgia (ICD-10 - M79.7) She has occasional low-grade abdominal discomfort. 04/11/2025 Other obesity (ICD-10 - E66.8) Her body mass index is 31.6. We have discussed her weight loss strategy. We discussed diet and nutrition. We made a plan to lose weight at a rate of one half of a pound per week. 10/04/2024 Type 2 diabetes mellitus with other specified complication (ICD-10 - E11.69) She will continue on current therapy. Her fasting glucose levels have been under 150. She has been compliant with her medication. 04/11/2025 Fibromyalgia (ICD-10 - M79.7) She has occasional low-grade abdominal discomfort. 10/04/2024 Hyperlipidemia, unspecified (ICD-10 - E78.5) Her lipids are well controlled and she will continue on her current regimen. 04/11/2025 Type 2 diabetes mellitus with other specified complication (ICD-10 - E11.69) She will continue on current therapy. Her fasting glucose levels have been under 150. She has been compliant with her medication. 10/04/2024 Age-related osteoporosis without current pathological fracture (ICD-10 - M81.0) She is asymptomatic at this time. 04/11/2025 Hyperlipidemia, unspecified (ICD-10 - E78.5) Her lipids are well controlled and she will continue on her current regimen. 10/04/2024 Former smoker (ICD-10 - Z87.891) She seems highly motivated not to smoke and we discussed strategies for prevention of relapse in times of stress and illness. 04/11/2025 Age-related osteoporosis without current pathological fracture (ICD-10 - M81.0) She is asymptomatic at this time. 10/04/2024 Other obesity (ICD-10 - E66.8) Her [...] w DIFF 07/31/2020 CBC with MANUAL DIFFERENTIAL 01/23/2018 CBC with MANUAL DIFFERENTIAL 07/27/2018 CBC with MANUAL DIFFERENTIAL 01/25/2019 PLATELET COUNT 06/23/2017 SED RATE (ESR) 01/29/2021 SED RATE (ESR) 11/29/2022 RETICULOCYTE COUNT,CORRECTED 11/29/2022 CT CHEST W&WO CONTRAST 07/28/2023 CBC WITH AUTO DIFF 07/28/2023 T SPOT TB 11/29/2022 Lipid Panel 07/28/2023 CT chest w con 10/11/2023 Next Appt Details Provider Name:Fabrice Palominone , 10/10/2025 11:00:00 AM, [address] [place] [address] , [facility] [address], [place], [address], Insurance Providers Payer Name Payer Address Payer Phone Subscriber Number Group Number Insured Name Patient Relationship to Insured Coverage Start Date Coverage End Date MEDICARE NGS [address] [place] [phone] [id number] TREY TEE Self - patient is the insured [address] [facility] [phone] [id number] TREY TEE Self - patient is the [...]
--- OUTSIDE RECORDS SUMMARY | 2025-05-16 18:45 | XMS_ITS | Patient Health Record ---
Author Organization [facility] Address [address] [place] [address] Care Team Providers Care Gate Watchman Name Role Phone Sal (RETIRED) Dannie HSIELDS Primary Care Provide r Unavailable Fabrice Blanchard Unavailable [phone] Allergies Allergen (clinical drug ingredient) Drug/Non Drug Allergy documented on EMR Reaction Allergy Type Onset Date Status cortizone injections (uncoded) elevated bs and bp Allergy Active niacin Niacin rash Drug Allergy Active lactose Lactose (Intolerance) Unknown Drug Allergy Active Reason For Referral No Information Medications Medication SIG (Take, Route, Frequency, Duration) Notes Start Date End Date Status Azelastine HCl 137 MCG/SPRAY Solution INSTILL 1 SPRAY NASALLY TWICE DAILY IN EACH NOSTRIL Nasal; Duration: 90 Active Albuterol Sulfate (2.5 MG/3ML) 0.083% Nebulization Solution TAKE 1 VIAL USING NEBULIZER FOUR TIMES A DAY NEEDED Inhalation; Duration: 10 Active hydrALAZINE HCl 25 MG Tablet TAKE 1 TABL ET BY MOUTH TWICE A DAY Oral; Duration: 90 Active Fluticasone Propionate HFA 110 MCG/ACT Aerosol Inhalation; Duration: 60 Active Omeprazole 20 MG Capsule Delayed Release TAKE 1 CAPSULE BY MOUTH TWICE A DAY Oral; Duration: 30 Active Pravastatin Sodium 80 MG Tablet 1 tablet Orally Once a day Active LORazepam 1mg 1 mg at hs1/2 in am Orally BID Active Carvedilol 6.25 MG Tablet 1 Orally BID Active Dextromethorphan HBr Active Claritin Active Flovent HFA 110 MCG/ACT Aerosol INHALE 1 PUFF(S) BY MOUTH TWICE A DAY Inhalation; Duration: 60 Active Immunizations Vaccine Route Administration Date Status Comme nts Flu vaccine no Preserv 3 and > Unknown 04/01/2016 Admin istered Social History Social History Drugs/Alcohol: Social Info Question Answer Notes Alcohol Screen Did you have a drink containing alcohol in the past year? 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[employer] Section Notes: Nonsmoker; no alcohol Nonsmoker; no alcohol Nonsmoker; no alcohol Nonsmoker; no alcohol Nonsmoker; no alcohol Nonsmoker; no alcohol Problems Problem Type SNOMED Code ICD Code Onset Dates Problem Status W/U Status Risk Notes Problem Gastro-esophageal reflux disease without esophagitis (986127458) Gastro-esophageal reflux disease without esophagitis (K21.9) Active confirmed Problem Screening for malignant neoplasm of colon (607872152) Encounter for screening for malignant neoplasm of colon (Z12.11) Active confirmed Problem History of adenomatous polyp of colon (337727842) History of adenomatous polyp of colon (Z86.010) Active confirmed Problem Diverticular disease of colon (033542739) Diverticulosis of large intestine without perforation or abscess without bleeding (K57.30) Active confirmed Problem Generalized abdominal pain (229175146) Generalized abdominal pain (R10.84) Active confirmed Problem Gastroesophageal reflux disease (942450717) Gastroesophageal reflux disease, esophagitis presence not specified (K21.9) Active confirmed Problem Irritable bowel syndrome (46126831) Irritable bowel syndrome with both constipation and diarrhea (K58.2) Active confirmed Problem Chronic cough (00317787) Chronic cough (R05.3) Active confirmed Plan Of [...] OF [place] [address] [place] [address] [id number] TREY TEE Self - patient is the [facility] [address] [facility] [phone] [id number] TREY TEE Self - patient is the insured Medical (General) History Medical History History ICD Code Irritable bowel syndrome ? hx of ulcer disease in the Colonoscopy 10-14-2008-negati ve except diverticulosis and internal hemorrhoids Colon polyps-tubular adenomas removed in 2001 and 2004 GERD--EGD in 1994 neg-Bx neg for H.pylor i NIDDM fibromyalgia hyperlipidemia hypertension Denies CT,CVA,Lung disease,renal disease EGD in 10/2012--neg except for a small HH --no celiac disease, no H.pylori Colonoscopy 08/2013 and in --negative except for sigmoid diverticulosis and internal hemorrhoids Lung cancer with surgery as below in 2022 Surgical History Surgery Date(Month/Year) bladder suspension 1992 cholecystectomy 2003 tubal ligation 1985 LLL lung resection for cancer-Dr. Shaffer at [facility] 04/07/2023
--- OUTSIDE RECORDS SUMMARY | 2025-05-16 18:45 | XMS_ITS | Clinical Summary ---
Author Organization [facility] Address [address] [place] [address] Phone Care Team Providers Care Senior Java Software Developer Name Role Phone Alex Mensah MD Primary Care Provider [phone] Allergies Active Allergy Reactions Criticality Noted Date Comments Atorvastatin 03/17/2023 Celecoxib 03/17/2023 Lactose 03/15/2024 Gastritis Niacin Rash Low 03/17/2023 Simvastatin 03/17/2023 Medications carvediloL (COREG) 6.25 mg tablet Take 1 Tablet by mouth 2 times daily (with meals). Active guaiFENesin-co deine (ROBITUSSIN-AC ) 100-10 mg/5 mL syrup Take 5 mL by mouth 3 times daily as needed. Active pravastatin (PRAVACHOL) 80 mg tablet Take 1 Tablet by mouth daily. Active fluticasone propionate (FLOVENT HFA INHL) Inhale 1 Inhaler into the lungs 2 times daily. Active lisinopriL (PRINIVIL,ZEST RIL) 2.5 mg tablet take 1 tablet (2.5 mg) by mouth daily for 90 days Active melatonin 3 mg tablet Take by mouth. Active aspirin 81 mg tablet Take 81 mg by mouth. 5 Active hydrALAZINE (APRESOLINE) 25 mg tablet Take 1 Tablet by mouth 2 times daily. 05/15/20 25 Discontinued ipratropium-al buteroL (DUONEB) 0.5-2.5 mg/3 mL nebulizer solution Inhale 3 mL into the lungs 4 times daily. 05/15/20 Discontinued loratadine (CLARITIN) 10 mg tablet Take 1 Tablet by mouth daily. 05/15/20 Discontinued LORazepam (ATIVAN) 1 mg tablet Take 1 Tablet by mouth every 6 hours as needed. 05/15/20 Discontinued omeprazole (PriLOSEC) [address] capsule Take 1 Capsule by mouth 2 times daily. 05/15/20 Discontinued azelastine HCl (AZELASTINE NASL) 2 Sprays by Nasal route 2 times daily. 05/15/20 Discontinued albuterol HFA (PROAIR HFA ; PROVENTIL HFA ; VENTOLIN HFA) 90 mcg/actuation inhaler Inhale 2 Puffs into the lungs every 4 hours as needed. 05/15/20 Discontinued Active Problems Problem Noted Date Diagnosed Date History of lung cancer 04/22/2024 Assessment & Plan (05/15/2025 10:13 AM EST): Ms. Candelario is a 79-year-old [...] outside facilities that do not have the best quality due to cut size, but this also [...] to that next appointment. Assessment & Plan (11/01/2024 1:44 PM EDT): [...] Encounters Date Type Department Care Team Description 05/15/2025 10:00 AM EST Office Visit Thoracic Surgery - [place] [address] [facility] [address] [place] [phone] Cata Lebron PA History of lung cancer (Primary Dx); Multiple pulmonary nodules 05/11/2025 8:34 AM EST - 05/11/2025 11:59 PM EST Hospital Encounter CT Scan [address] [place] [id number] History of lung cancer; Multiple pulmonary nodules Discharge Disposition: Home or Self Care from Last 3 Months Surgical History Surgery Date Site/Laterality Comments COLONOSCOPY N/A PROCEDURE: HISTORICAL COLONOSCOPY ESOPHAGOGASTRODUODENOSCOPY N/A PROCEDURE: ME ESOPHAGOGASTRODUODENOSCOPY TRANSORAL DIAGNOSTIC CHOLECYSTECTOMY N/A PROCEDURE: HISTORICAL CHOLECYSTECTOMY TUBAL LIGATION PROCEDURE: HISTORICAL TUBAL LIGATION OTHER SURGICAL HISTORY 04/07/2023 Left PROCEDURE: ME THORACOSCOPY W/THERA WEDGE RESEXN INITIAL UNILAT; COMMENT: [...] no dule DM2 (diabetes mellitus, type 2) ([facility] V24, [facility] V28) DX:DM2 (diabetes mellitus, t ype 2) ([facility]) Anemia DX:Anemia Mild intermittent asthma, [...] PM EST Sexual Orientation Not on file Last Filed Vital Signs Vital Sign Reading [...] Mass Index 28.6 05/15/2025 9:42 AM EST Plan of Treatment Health Maintenance Due Date [...] 2024-2 6 season) 2025 03/16/2024, 07/05/2021, 09/09/2020 Diabetes: Annual Urine Albumin-Creatinine Ratio (uACR) 05/15/2025 Diabetes: Blood Sugar Contro l Test (HGBA1C) 05/15/2025 DTaP,Tdap,and Td Vaccines (2 - Td or Tdap) 05/21/2031 05/21/2021 Influenza Vaccine Completed 04/28/2025 HIB Vaccines Aged Out No longer eligi [...] Months Results * CT Chest wo Contrast (05/11/2025 [...] Signed Date: 05/13/2025 12:28 ET Workstation ID: [id number] Transcribed By: Self Edit Transcribed Date: 05/13/2025 [...] Signed Date: 05/13/2025 12:28 ET Workstation ID: [id number] Transcribed By: Self Edit Transcribed Date: 05/13/2025 12:[address] PROCEDURES Final Resul t from Last 3 Months Insurance MEDICARE [facility] Care Teams Senior Java Software Developer Relationship Specialty Start Date End Date Alex Mensah MD [address] [place] [address] [address] [place] [address] PCP - General Internal Medicine 05/15/25
--- OUTSIDE RECORDS SUMMARY | 2025-05-16 18:46 | XMS_ITS | Patient Health Record ---
Author Organization [facility] Address [address] [facility] 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 Role Phone Omar, Karin Primary Care Provider Malik Albert Unavailable [phone] Radha Weir Unavailable [phone] Allergies Allergen (clinical drug ingredient) Drug/Non Drug Allergy documented on EMR Reaction Allergy Type Onset Date Status niacin Niacin rash Drug Allergy Active Cortisone elevated BP/ elevated BS Drug Allergy Active Results Component Value Reference Range Notes HEMOGLOBIN A1C (GLYCOHEMOGLO BIN) Reviewed date:10/08/2024 11:29:26 AM Interpretation: Performing Lab: Notes/Report: HEMOGLOBIN A1C % (HH) 6.3 Reason For Referral No Information Medications Medication SIG (Take, Route, Frequency, Duration) Notes Start Date End Date Status Azelastine-Fluticaso ne PRN Active Calcium Not-Taking LORazepam 1mg 1 during the day 1/2 at night Active Lisinopril Not-Takin g Losartan Potassium 25 MG Orally Not-Taking Zantac bid Not-Taking Multivitamin Active PriLOSEC 20 MG Orally 2 Not-T aking Benzonatate 100 MG 1 capsule as needed Orally Three times a day Active Tums Not-Taking Omeprazole 10 MG 1 capsule Orally twice a day Active Vitamin D Not-Taking Pravastatin Sodium A ctive vitamin Not-Taking Hyoscyamine Sulfate 25mg 2x a day Active Extra Depth Orthopedic Shoes (1 Pair) with Customized Heat Molded Multidensity Innersoles (3 Pair) as directed Dx: NIDDM/Polyneuropathy (E11.42), Hammertoe Foot Deformity (M20.41,M20.42), Preulcerative Skin Lesion(s) (L85.1 10/08/2024 Active Advair HFA Active Mylanta Not-Taking Carvedilol 6.25 MG 1 tablet with food Orally Twice a day Active Gabapentin Not-Takin g Ammonium Lactate 12 % 1 application Externally to affected areas of dry skin to feet except for between the toes Twice a day; Duration: 30 days Active Clobetasol Emul Foam w/MoistCr Not-Taking Antibiotic 7 day Not-Takin g ZyrTEC Not-Taking Claritin Not-Taking Famotidine Not-Takin g Delsym Not-Taking prednisoLONE Not-Russell ing Kecia Active Valsartan Not-Taking Tylenol 2 every 8 hour Active Metformin & Diet Manage Prod 500 MG as directed Orally daily 05/06/2025 Active Rhinocort Allergy 32 MCG/ACT 1 spray in each nostril Nasally Once a day Not-Taking Tussin Active Montelukast Sodium N ot-Taking Albuterol Sulfate HFA PRN Active Immunizations Vaccine Route Administration Date Status Comme nts Influenza Unknown 05/19/2017 Administered Influenza Unknown 03/05/2018 Administered Influenza Unknown 04/11/2019 Administered Influenza Unknown 03/05/2020 Administered Influenza Unknown 03/07/2022 Administered Influenza Unknown 03/05/2024 Administered Influenza Unknown 03/07/2025 Administered Pneumococcal Unknown 08/17/2017 Refused COVID-19 Fredrick [...] Problem Acquired hammer toe of right foot ([id number] ) Other hammer toe(s) (acquired), right foot (M20.41) Active confirmed Problem Acquired hammer toe of left foot ([id number] ) Other hammer toe(s) (acquired), left foot (M20.42) Active confirmed Problem Polyneuropathy due to type 2 diabetes mellitus (500329964) Type 2 diabetes mellitus with diabetic polyneuropathy (E11.42) Active confirmed Vital Signs Blood pressure diastolic 65 mm Hg 05/06/2025 Height 5 ft 4 in in 05/06/2025 Blood pressure systolic 126 mm Hg 05/06/2025 Weight 157 lbs 05/06/2025 BMI 26.95 kg/m2 05/06/2025 Procedures Procedure Date Ordered Date Performed Result Body Sit e 52079-VOEGYXA NAIL, 6 OR MORE 06/03/2024 N/A 61160-MNKL SKIN LESIONS, OVER 4 06/03/2024 N/A 73740-HBSGPDN NAIL, 6 OR MORE 10/08/2024 N/A 95387-UFGF SKIN LESIONS, OVER 4 10/08/2024 N/A 91802-ZSFJHAG NAIL, 6 OR MORE 01/10/2025 N/A 85563-UZNY SKIN LESIONS, OVER 4 01/10/2025 N/A 34738-ZJOABLZ NAIL, 6 OR MORE 05/06/2025 N/A 60496-XBIG SKIN LESIONS, OVER 4 05/06/2025 N/A Encounters Encounter Location Date Provider Diagnosis [address] [phone] 06/03/2024 Radha Destin Type 2 diabetes mellitus with diabetic polyneuropathy E11.42 and Tinea unguium B35.[address] [address] 10/08/2024 Malik Clements Type 2 diabetes mellitus with diabetic polyneuropathy E11.42 ; Tinea unguium B35.1 ; Other hammer toe(s) (acquired), right foot M20.41 and Other hammer toe(s) (acquired), left foot M20.[address] [address] 01/10/2025 Malikguillermina Clements Type 2 diabetes mellitus with diabetic polyneuropathy E11.42 and Tinea unguium B35.[address] [address] 05/06/2025 Malik Starr Type 2 diabetes mellitus with diabetic polyneuropathy E11.42 ; Tinea unguium B35.1 and Xerosis of skin L85.3 [facility] [address] [place] [address] 09/24/2024 Radha Weir Assessments Encounter Date Diagnosis [...] E11.42) 01/10/2025 Tinea unguium (ICD-10 - B35.1) 05/06/2025 Type 2 diabetes mellitus with diabetic polyneuropathy (ICD-10 - E11.42) 05/06/2025 Tinea unguium (ICD-10 - B35.1) 10/08/2024 Other hammer toe(s) (acquired), right foot (ICD-10 - M20.41) Patient Educated with: DIABETIC FOOT CARE INSTRUCTIONS. pdf (DIABETIC FOOT CARE INSTRUCTIONS. pdf) 05/06/2025 Xerosis of skin (ICD-10 - L85.3) 10/08/2024 Other hammer toe(s) (acquired), left foot (ICD-10 - M20.42) Plan Of Treatment Pending Test Test Name Order Date X ray : Ankle, left 3V 11/15/2018 28480-OZKLAUP NAIL, 6 OR MORE 05/17/2018 19285-WYJGOEX NAIL, 6 OR MORE 06/03/2024 36465-SULTDEV NAIL, 6 OR MORE 10/08/2024 22037-PYJRWZK NAIL, 6 OR MORE 01/10/2025 95613-DDIOBRK NAIL, 6 OR MORE 05/06/2025 13682-ZZLOZLG NAIL, 6 OR MORE 02/23/2011 78873-VBDDPJF NAIL, 6 OR MORE 05/11/2011 82286-JFGQCKK NAIL, 6 OR MORE 07/20/2011 11084-XWRXCOD NAIL, 6 OR MORE 10/03/2011 02650-ZYXEHJM NAIL, 6 OR MORE 12/12/2011 62323-GTKNXFL NAIL, 6 OR MORE 02/22/2012 38139-KQZZXWH NAIL, 6 OR MORE 05/09/2012 61689-OMMJUHR NAIL, 6 OR MORE 08/08/2012 52250-ORBBSSC NAIL, 6 OR MORE 11/08/2012 78633-AXSTWQZ NAIL, 6 OR MORE 01/30/2013 82192-YZODIEY NAIL, 6 OR MORE 04/24/2013 07329-MKIPWJM NAIL, 6 OR MORE 07/03/2013 46284-CITNACQ NAIL, 6 OR MORE 09/16/2013 44313-DVULHWW NAIL, 6 OR MORE 12/23/2013 35897-CQBGZMQ NAIL, 6 OR MORE 03/27/2014 78135-XXFTXJX NAIL, 6 OR MORE 06/09/2014 88730-NFBJOBP NAIL, 6 OR MORE 08/18/2014 39520-UKCABMQ NAIL, 6 OR MORE 10/29/2014 36811-FJENAQO NAIL, 6 OR MORE 01/12/2015 91369-HZSGTOU NAIL, 6 OR MORE 04/13/2015 69252-WMXOYYD NAIL, 6 OR MORE 06/29/2015 99282-KXKHBJC NAIL, 6 OR MORE 09/14/2015 98556-WZRSFMB NAIL, 6 OR MORE 12/17/2015 61862-AHPPEOY NAIL, 6 OR MORE 03/17/2016 31764-CZACNCC NAIL, 6 OR MORE 06/16/2016 48400-QUKOKUH NAIL, 6 OR MORE 08/18/2016 55154-VZYEGEU NAIL, 6 OR MORE 11/16/2016 58905-FYTIFZC NAIL, 6 OR MORE 02/16/2017 38157-LFCAZFC NAIL, 6 OR MORE 05/18/2017 74065-ZTYKLDZ NAIL, 6 OR MORE 08/17/2017 11031-NZZPXUY NAIL, 6 OR MORE 11/16/2017 52477-JBGNMBY NAIL, 6 OR MORE 02/15/2018 87158-Sluvkvfi Plate 05/18/2017 53162-Rwtwmubo Plate 10/29/2014 09221-Mlygasiq Plate 08/18/2014 09057-Neuwoqox Plate 06/09/2014 78625-Sljrzgzt Plate 03/27/2014 43923-YHDH SKIN LESIONS, OVER 4 05/06/20 17342-TVCS SKIN LESIONS, OVER 4 01/11/20 50101-GFTH SKIN LESIONS, OVER 4 10/09/19 13103-GGFO SKIN LESIONS, OVER 4 06/03/20 24 65448-AEGE SKIN LESIONS, OVER 4 08/17/19 19 30117-WAOP SKIN LESIONS, OVER 4 11/16/19 19 38724-TDBS SKIN LESIONS, OVER 4 03/14/20 76068-OEGI SKIN LESIONS, OVER 4 06/17/19 71320-MHEX SKIN LESIONS, OVER 4 10/17/19 05988-FYNV SKIN LESIONS, OVER 4 01/22/20 37383-SKIA SKIN LESIONS, OVER 4 04/22/20 93179-JXHP SKIN LESIONS, OVER 4 07/29/19 10307-PFLO SKIN LESIONS, OVER 4 10/29/19 21 33540-IMJN SKIN LESIONS, OVER 4 01/28/20 48703-DSWR SKIN LESIONS, OVER 4 04/28/20 51869-XNIE SKIN LESIONS, OVER 4 08/05/19 22 03418-QLSJ SKIN LESIONS, OVER 4 06/09/19 15 09053-JEWJ SKIN LESIONS, OVER 4 03/27/20 14 26599-BDJC SKIN LESIONS, OVER 4 12/24/19 14 07661-EWRT SKIN LESIONS, OVER 4 09/17/19 14 22241-OWYR SKIN LESIONS, OVER 4 07/03/19 14 50439-JEXI SKIN LESIONS, OVER 4 04/24/20 13 34015-UOTC SKIN LESIONS, OVER 4 01/31/20 13 67518-SXKG SKIN LESIONS, OVER 4 11/09/19 13 08247-BJZE SKIN LESIONS, OVER 4 08/09/19 13 29334-TZBU SKIN LESIONS, OVER 4 05/09/20 12 26337-QSYI SKIN LESIONS, OVER 4 02/22/20 12 62008-DZRN SKIN LESIONS, OVER 4 12/12/19 12 54828-XFWA SKIN LESIONS, OVER 4 10/03/19 12 24809-SPQB SKIN LESIONS, OVER 4 07/20/19 12 39864-CJUZ SKIN LESIONS, OVER 4 05/11/20 11 09977-ZZII SKIN LESIONS, OVER 4 02/24/20 11 32428-XKLD SKIN LESIONS, OVER 4 08/19/19 15 79332-LWAH SKIN LESIONS, OVER 4 10/30/19 15 15873-SZCD SKIN LESIONS, OVER 4 04/13/20 15 91968-MLJF SKIN LESIONS, OVER 4 01/13/20 15 29619-ZHWJ SKIN LESIONS, OVER 4 03/17/20 16 98911-FSCI SKIN LESIONS, OVER 4 12/17/19 16 18335-ZVYQ SKIN LESIONS, OVER 4 09/14/19 16 54954-GOCV SKIN LESIONS, OVER 4 06/29/19 16 82614-YHEJ SKIN LESIONS, OVER 4 05/18/20 17 22782-EZVJ SKIN LESIONS, OVER 4 02/17/20 17 98834-LXSK SKIN LESIONS, OVER 4 08/19/19 17 88278-CSXH SKIN LESIONS, OVER 4 11/17/19 17 93190-DUQP SKIN LESIONS, OVER 4 06/16/19 17 57345-XMQM SKIN LESIONS, OVER 4 05/17/20 18 40610-WLWT SKIN LESIONS, OVER 4 02/16/20 18 84607-RQWQ SKIN LESIONS, OVER 4 11/17/19 18 28147-NQXL SKIN LESIONS, OVER 4 08/18/19 18 13604- Removal of Foreign Body, Subcut 0 06/17/2019 Next Appt Details Provider Name:Malik Watson Starr , 08/15/2025 09:30:00 AM, [address] [facility], [place], [address], Insurance Providers Payer Name Payer Address Payer Phone Subscriber Number Group Number Insured Name Patient Relationship to Insured Coverage Start Date Coverage End Date [employer] [address] [place] [address] [id number] Julienne Chand Self - patient is the insured [facility] [address] [place] [address] [phone] [id number] Julienne Chand Self - patient is [...] /PCP- Fell Broke Nose [facility] / [facility] 01/07/17 [facility] for 2 day s roxie , for chest pain, high blood pressure and a head bump 03/2013
== END 2025-05-16 14:02 | disposition home or self-care (01) ==
LOC: HO.HPS 13:09
PROVIDERS: PCP Internal Medicine; Visit Provider Hospitalist
DX: T78.40XA Allergy, unspecified, initial encounter (principal); R05.3 Chronic cough; C34.92 Malignant neoplasm of unspecified part of left bronchus or lung
CPT/HCPCS: 99204

== ENCOUNTER 2025-05-16 13:08 | Outpatient (REF) | payer MEDICARE, OTHER, SELFPAY ==
[2025-05-16 14:36] LABS: MANUAL DIFF FLAG NO
[2025-05-16 14:50] LABS: Hematocrit 34.4 % (37.0-47.0); Hemoglobin 12.1 g/dl (12.0-16.0); Imm Gran Abs Auto 0.02 X10*3/uL (0.00-0.03); Imm Gran Pct Auto 0.3 % (0.0-0.4); Lymphocytes Absolute Auto 3.5 X10*3/uL (1.2-4.9); Mean Corpuscular HGB Conc 35.2 g/dl (31.0-35.0); Mean Corpuscular Hemoglobin 27.8 pg (27.0-33.0); Mean Corpuscular Volume 78.9 fL (80.0-98.0); NRBC Abs Auto 0.000 X10*3/uL (0.0-0.012); NRBC Pct Auto 0.0 /100WBC (0.0-0.2); Platelet Count 247 X10*3/uL (160-400); Red Blood Count 4.36 X10*6/uL (4.20-5.50); White Blood Count 6.6 X10*3/uL (4.8-10.8)
== END 2025-05-16 13:09 | disposition home or self-care (01) ==
LOC: HO.LAB 13:08
PROVIDERS: PCP Student in an Organized Health Care Education/Training Program; Visit Provider Hospitalist
DX: C34.92 Malignant neoplasm of unspecified part of left bronchus or lung (principal); R91.8 Other nonspecific abnormal finding of lung field; R05.3 Chronic cough; T78.40XA Allergy, unspecified, initial encounter; Z01.84 Encounter for antibody response examination
CPT/HCPCS: 36415; 82785; 85025; 85652; 86003; 86331; 86606; 86609; 99202